=== PATIENT | male | born 1970 | race Caucasian/White ===

== ENCOUNTER 2016-11-16 00:17 | Emergency (ER) | payer OTHER ==
[2016-11-16 00:23] VITALS: RESP 18
--- NOTE | 2016-11-16 00:38 | ED ---
General Adult HPI - General Chief complaint: Anxiety Stated complaint: insomnia Time Seen by Provider: 11/16/16 00:26 Source: patient, RN notes reviewed Mode of arrival: ambulatory Limitations: no limitations - History of Present Illness Initial comments: 46 yo male presents to the ER with cc of anxiety and racing thoughts. Patient states he has developed insomnia over the past few nights due to racing thoughts. Patient states he believes it is his anxiety but there is nothing in his life that seems to bring this. Patient denies any suicidal or homicidal ideation at this time but states he has had 4 suicide attempts in the past and did have suicidal thoughts 2 weeks ago that just appeared on their own as well as disappeared as fast. Patient states he is here because he did not know where else to go. Patient states he sees [facility] for his medications. Patient denies any recent fever, chills, shortness of breath, chest pain, back pain, abdominal pain , nausea vomiting, numbness or tingling, dysuria or hematuria, constipation or diarrhea, headaches or visual changes, or any other current symptoms. - Related Data Home Medications Medication Instructions Recorded Confirmed No Known Home Medications [No 09/23/16 11/16/16 Known Home Medications] Allergies Allergy/AdvReac Type Severity Reaction Status Date / Time horseradish Allergy Anaphylaxis Verified 11/16/16 00:23 shellfish derived [Shellfish] Allergy Anaphylaxis Verified 11/16/16 00:23 Review of Systems ROS Statement: Those systems with pertinent positive or pertinent negative responses have been documented in the HPI. ROS Other: All systems not noted in ROS Statement are negative. Past Medical History Additional Past Medical History / Comment(s): cerebral aneurysm History of Any Multi-Drug Resistant Organisms: None Reported Past Surgical History: Heart Catheterization Past Psychological History: Anxiety, Bipolar, Depression Smoking Status: Current every day smoker Past Alcohol Use History: Occasional Past Drug Use History: Marijuana General Exam Limitations: no limitations General appearance: alert, in no apparent distress Head exam: Present: atraumatic, normocephalic, normal inspection Eye exam: Present: normal appearance, PERRL, EOMI. Absent: scleral icterus, conjunctival injection, periorbital swelling Neck exam: Present: normal inspection. Absent: tenderness, meningismus, lymphadenopathy Respiratory exam: Present: normal lung sounds bilaterally. Absent: respiratory distress, wheezes, rales, rhonchi, stridor Cardiovascular Exam: Present: regular rate, normal rhythm, normal heart sounds. Absent: systolic murmur, diastolic murmur, rubs, gallop, clicks Neurological exam: Present: alert, oriented X3, CN II-XII intact. Absent: motor sensory deficit Psychiatric exam: Present: normal mood. Absent: homicidal ideation, suicidal ideation Skin exam: Present: warm, dry, intact, normal color. Absent: rash Course Vital Signs 11/16/16 00:22 Temperature 98.6 F Pulse Rate 60 Respiratory 18 Rate Blood Pressure 101/56 O2 Sat by Pulse 98 Oximetry Medical Decision Making - Medical Decision Making 46 yo male presents with cc of anxiety. At this time patient does not appear to have any acute medically emergencies. patient is cleared to be evaluated by psychiatry. At this time the patient was evaluated by psychiatry and due to the patient for discharge. Patient does consent to safety Going to work in the morning. At this time we did give the patient 1 mg of Ativan helps results. We discussed return for worsening follow-up. Patient stated that he understood and all his questions have been answered. He will be discharged home. Disposition Clinical Impression: Acute anxiety Disposition: HOME SELF-CARE Condition: Stable Instructions: Generalized Anxiety Disorder (ED) Additional Instructions: Please use medication as discussed. Please follow up with family doctor if symptoms have not improved over the next two days. Please return to the emergency room if your symptoms increase or worsen or for any other concerns. Referrals: Tessa Epps MD [STAFF PHYSICIAN] - 1-2 days Time of Disposition: 02:36
[2016-11-16] MEDS ORDERED: LORazepam 1 MG TAB PO STA (02:30)
[2016-11-16 02:45] VITALS: BP 123/67; PULSE 87; TEMP 98
== END 2016-11-16 02:45 | disposition home or self-care (01) ==
LOC: EC 00:17
DX: F41.9 Anxiety disorder, unspecified (principal); F12.90 Cannabis use, unspecified, uncomplicated; Z86.79 Personal history of other diseases of the circulatory system; F17.200 Nicotine dependence, unspecified, uncomplicated
CPT/HCPCS: 80306; 82075; 99284

== ENCOUNTER 2016-12-16 02:29 | Observation (INO) | payer OTHER ==
[2016-12-16] MEDS ORDERED: ASPIRIN 81 MG CHEW PO STA (02:59)
--- NOTE | 2016-12-16 03:07 | ED ---
Chest Pain HPI - General Chief Complaint: Chest Pain Stated Complaint: Chest Pain Time Seen by Provider: 12/16/16 02:41 Source: patient Mode of arrival: ambulatory Limitations: no limitations - History of Present Illness Initial Comments: This patient's a 46-year-old man who presents with complaint that he is having some coughing and intermittent left-sided chest pain. Symptoms seem to be going on for about 3 days now. The first time came on while he was at rest, the second time the patient was walking and then the last episode he states he was playing pool. He describes the pain as an aching, it comes on and lasts for minutes. He did not notice any worsening or relieving factors. He has had a cough with some occasional sputum. MD Complaint: chest pain Onset/Timin -: days(s) Onset: during rest Pain Location: left chest Pain Radiation: none Severity: moderate Quality: aching Consistency: intermittent Improves With: nothing Worsens With: nothing - Related Data Home Medications Medication Instructions Recorded Confirmed No Known Home Medications [No 09/23/16 11/16/16 Known Home Medications] Allergies Allergy/AdvReac Type Severity Reaction Status Date / Time horseradish Allergy Anaphylaxis Verified 12/16/16 02:37 shellfish derived [Shellfish] Allergy Anaphylaxis Verified 12/16/16 02:37 Review of Systems ROS Statement: Those systems with pertinent positive or pertinent negative responses have been documented in the HPI. ROS Other: All systems not noted in ROS Statement are negative. Constitutional: Denies: fever, chills Respiratory: Reports: cough. Denies: dyspnea, hemoptysis Cardiovascular: Reports: chest pain. Denies: palpitations, dyspnea on exertion , orthopnea, edema, syncope Gastrointestinal: Denies: abdominal pain, vomiting, diarrhea Genitourinary: Denies: dysuria, hematuria Musculoskeletal: Reports: back pain Skin: Reports: rash Neurological: Denies: headache, weakness, numbness EKG Findings - EKG Results: EKG: interpreted by SHANDA DEL, sinus rhythm (Rate 73 bpm), normal axis, normal QRS, normal ST/T, no acute changes Past Medical History Past Medical History: CVA/TIA, Myocardial Infarction (LA) Additional Past Medical History / Comment(s): cerebral aneurysm History of Any Multi-Drug Resistant Organisms: None Reported Past Surgical History: Heart Catheterization Past Psychological History: Anxiety, Bipolar, Depression Smoking Status: Current every day smoker Past Alcohol Use History: Occasional Past Drug Use History: Marijuana General Exam Limitations: no limitations General appearance: alert, in no apparent distress Head exam: Present: atraumatic, normocephalic Eye exam: Present: normal appearance. Absent: scleral icterus, conjunctival injection ENT exam: Present: normal oropharynx Neck exam: Present: normal inspection Respiratory exam: Present: wheezes. Absent: respiratory distress, rales, rhonchi, stridor Cardiovascular Exam: Present: regular rate, normal rhythm, normal heart sounds. Absent: systolic murmur, diastolic murmur, rubs, gallop GI/Abdominal exam: Present: soft. Absent: distended, tenderness, guarding, rebound, mass Extremities exam: Present: normal inspection, normal capillary refill. Absent: pedal edema, calf tenderness Back exam: Present: normal inspection. Absent: CVA tenderness (R), CVA tenderness (L) Neurological exam: Present: alert Skin exam: Present: warm, dry, intact, normal color. Absent: rash, cyanosis, diaphoretic, erythema, petechiae, pallor, mottled Course Vital Signs 12/16/16 02:37 Temperature 97.3 F L Pulse Rate 73 Respiratory 16 Rate Blood Pressure 107/68 O2 Sat by Pulse 96 Oximetry Disposition Clinical Impression: Chest pain Disposition: ADMITTED IP TO THIS HOSP Condition: Fair
[2016-12-16 03:15] LABS: Basophils # (A) 0.2 k/uL (0-0.2); Basophils % (A) 1 %; CH 28.8; CHCM 32.5; Eosinophils # (A) 0.4 k/uL (0-0.7); Eosinophils % (A) 3 %; HCT 41.9 % (39.0-53.0); HDW 2.23; HGB 13.4 gm/dL (13.0-17.5); Luc # (Auto) 0.22; Luc % (Auto) 2; Lymphocytes # (A) 2.5 k/uL (1.0-4.8); Lymphocytes % (A) 21 %; MCH 28.4 pg (25.0-35.0); MCHC 31.9 g/dL (31.0-37.0); Mean Platelet Volume 6.4; Monocytes # (A) 0.6 k/uL (0-1.0); Monocytes % (A) 5 %; Neutrophils # (A) 8.4 k/uL (1.3-7.7); Neutrophils % (A) 68 %; RBC 4.71 m/uL (4.30-5.90); RDW 13.4 % (11.5-15.5); WBC 12.3 k/uL (3.8-10.6); WBC (Perox) 12.08
--- NOTE | 2016-12-16 03:36 | XR ---
EXAM: XR Chest, 2 Views. CLINICAL HISTORY: Reason: Chest Pain TECHNIQUE: Frontal and lateral views of the chest. COMPARISON: 04/19/16 two-view exam. FINDINGS: Lungs: Unremarkable. No consolidation. Pleural spaces: Unremarkable. No pneumothorax. Heart: Unremarkable. No cardiomegaly. Mediastinum: Unremarkable. Bones: Now included is incomplete union of chronic appearing and superiorly displaced distal right clavicle fracture. Tubes and lines: Several EKG leads and wires, as well as oxygen tubing, overlie the chest. IMPRESSION: No acute findings.
[2016-12-16 03:37] LABS: ALT 24 U/L (21-72); AST 23 U/L (17-59); Alkaline Phosphatase 112 U/L (38-126); Amylase 132 U/L (30-110); Anion Gap 11 mmol/L; Blood Urea Nitrogen 18 mg/dL (9-20); Calcium 9.4 mg/dL (8.4-10.2); Carbon Dioxide 25 mmol/L (22-30); Chloride 106 mmol/L (98-107); Glucose 81 mg/dL (74-99); Magnesium 2.1 mg/dL (1.6-2.3); Non-African American GFR(MDRD) >60 (>60 ml/min/1.73 sqM); Potassium 4.8 mmol/L (3.5-5.1); Sodium 142 mmol/L (137-145); Total Bilirubin 0.3 mg/dL (0.2-1.3)
[2016-12-16] MEDS ORDERED: NITROGLYCERIN SL TABS 0.4 MG TAB SUBLINGUAL PRN (04:51)
[2016-12-16 05:39] VITALS: RESP 18; BMI 17.6
[2016-12-16] MEDS: SODIUM CHLORIDE 0.9% 1,000 ML IV SCH ×2 (06:54→16:57)
[2016-12-16 09:03] LABS: Creatine Kinase 107 U/L (55-170)
[2016-12-16 09:17] LABS: Troponin I <0.012 ng/mL (0.000-0.034)
--- NOTE | 2016-12-16 09:42 | CONS ---
DATE OF CONSULTATION: Mr. Chaudhari is a 46-year-old male who does not follow with a physician, who came in because he was feeling cold. In the emergency room, he told the staff that he was having chest pain on and off, apparently he has not had chest pain in 2 days. The discomfort is nonexertional pattern, lasts some time up to 10 minutes, random in timing. He is usually active physically. He walks on a regular basis. Occasional dyspnea on exertion and occasional palpitation, but no dizziness. No syncope. No PND, orthopnea, or peripheral edema. He has no prior documented history of CAD. His coronary risk factors are remarkable for chronic tobacco use. He has no documented history of hypertension, hyperlipidemia, or diabetes. REVIEW OF SYSTEMS: RESPIRATORY SYSTEM: He has a history of chronic obstructive lung disease, chronic tobacco use. GI SYSTEM: No recent GI bleeding. No peptic ulcer disease. SYSTEM: No dysuria or hematuria. NERVOUS SYSTEM: He had a history of stroke in 2013. Full details of that are not available to me. SOCIAL HISTORY: He denies any alcohol abuse. He smokes and he did drinks caffeine. PHYSICAL EXAMINATION: This is a 46-year-old male, alert, oriented, in no apparent distress, appears older than stated age. Blood pressure 119/80 with a heart rate in the 60s. HEAD: Normocephalic. EYES: Sclerae nonicteric. NECK: Good upstroke. No bruit. No jugular venous distention. Lungs with decreased air exchange. No wheezes. HEART: Regular rate and rhythm. S1, S2, no S3, no rub. ABDOMEN: Soft, nontender, positive bowel sounds. No organomegaly. EXTREMITIES: No edema. Intact distal pulses. Lab data revealed troponin less than 0.012, BUN and creatinine 18 and 0.9. Potassium 4.8. Hemoglobin 13.4. White blood cells 12.3. EKG revealed sinus mechanism, normal axis and intervals, normal electrocardiogram. Chest x-ray shows no acute changes. IMPRESSION: 1. Chest discomfort, atypical for ischemic heart disease. 2. Chronic tobacco use. RECOMMENDATION: I have recommended proceeding with a stress echocardiogram to evaluate his symptoms. If there is no evidence of abnormality, then no further cardiac work-up will be needed. Thank you for this consult. Will follow with you.
--- NOTE | 2016-12-16 10:47 | ECHOF ---
Referral Reason:cp MEASUREMENTS -------- HEIGHT: 188.0 cm WEIGHT: 62.1 kg BP: 119/80 RVIDd: 2.7 cm (< 3.3) IVSd: 0.9 cm (0.6 - 1.1) LVIDd: 4.0 cm (3.9 - 5.3) LVPWd: 1.0 cm (0.6 - 1.1) IVSs: 1.8 cm LVIDs: 3.1 cm LVPWs: 1.5 cm LA Diam: 3.0 cm (2.7 - 3.8) LAESV Index (A-L): 26.01 ml/m Ao Diam: 3.0 cm (2.0 - 3.7) AV Cusp: 1.5 cm (1.5 - 2.6) LA Diam: 3.2 cm (2.7 - 3.8) MV EXCURSION: 17.354 mm (> 18.000) MV EF SLOPE: 195 mm/s (70 - 150) EPSS: 0.4 cm MV E Raheel: 0.80 m/s MV DecT: 205 ms MV A Raheel: 0.55 m/s MV E/A Ratio: 1.46 FINDINGS -------- Resting bradycardia (HR<60bpm). This was a technically good study. Left ventricular wall thickness is normal. Overall left ventricular systolic function is normal with, an EF between 55 - 60 %. The right ventricle is normal in size. Normal LA size by volume 22+/-6 ml/m2. The right atrium is normal in size. Aortic valve is trileaflet and is mildly thickened. The mitral valve leaflets are mildly thickened. Mild mitral annular calcification present. There is trace mitral regurgitation. Trace tricuspid regurgitation present. The pulmonic valve is normal. The aortic root size is normal. Normal inferior vena cava with normal inspiratory collapse consistent with estimated right atrial pressure of 5 mmHg. There is no pericardial effusion. CONCLUSIONS -------- 1. Resting bradycardia (HR<60bpm). 2. There is trace mitral regurgitation. 3. Trace tricuspid regurgitation present. 4. The pulmonic valve is normal. 5. The aortic root size is normal. 6. There is no pericardial effusion. 7. This was a technically good study. 8. Left ventricular wall thickness is normal. 9. Overall left ventricular systolic function is normal with, an EF between 55 - 60 %. 10. The right ventricle is normal in size. 11. Normal LA size by volume 22+/-6 ml/m2. 12. Aortic valve is trileaflet and is mildly thickened. 13. The mitral valve leaflets are mildly thickened. 14. Mild mitral annular calcification present. [employer] OPERATOR: Hima Barr RDCS
[2016-12-16] MEDS: HEPARIN SODIUM,PORCINE 5,000 UNIT/ML 1 ML VIAL SQ SCH ×2 (11:01→16:57)
[2016-12-16 11:58] VITALS: PULSE 54
[2016-12-16] MEDS ORDERED: NICOTINE 14MG/24HR PATCH TRANSDERM SCH (12:30)
[2016-12-16] MEDS ORDERED: NAPROXEN 250 MG TAB PO SCH (12:45)
--- NOTE | 2016-12-16 14:06 | ECHOS ---
DATE OF SERVICE: 12/16/2016 AGE: 46Y SEX: M HT: 74" WT: 137 lbs. Protocol Jordon: X Others: Stress Echo Stage: 4 Dur. of Exercise: 10:00 *Heart Rate Blood Pressure *Rest: 66 Rest: 144/50 * *Max. Achieved: 129 Maximum BP: 122/70 85% PMHR: 147 100% PMHR: 173 *METS: 10.3 INDICATIONS: Chest pain. MEDICATIONS: - Patient was exercised for a total period of 10 minutes. A peak heart rate of 129 was achieved. Maximum blood pressure of 122/70 mmHg was noted. Resting EKG shows normal sinus rhythm with normal DC interval and QRS duration and normal ST-T waves. No ST segment depression suggestive of ischemia is noted. The baseline echocardiographic images reveals a normal left ventricular chamber size with normal left ventricular systolic function. In the immediate postexercise period, normal increase in the wall thickness and contractility is noted. FINAL IMPRESSION: This stress echocardiographic study is negative for stress-induced ischemia. Patient achieved 75% of the predicted heart rate. Patient's exercise tolerance is excellent. EKG portion of the stress test is not suggestive of ischemia.
--- NOTE | 2016-12-16 14:42 | HP ---
DATE OF ADMISSION: 12/16/2016 PRESENTING COMPLAINT: Chest pain. HISTORY OF PRESENTING COMPLAINT: This is a 46-year-old patient with no family doctor who is a smoker. Three days ago noted some stabbing sensation on the left anterior chest wall, then yesterday had a sensation of somebody grabbing his chest. There is no shortness of breath. No perspiration. Did feel tired. No dizziness. The pain did radiate to the right arm, lasted for about 1/2 hour. Patient admitted to rule out a cardiac cause. Patient does have a cough and the pain seems to be more when he coughs. Patient did have a stroke in the past with no residual. He was told he has an CO and also has got a cerebral aneurysm at the back of the head. Patient is a smoker. REVIEW OF SYSTEMS: CONSTITUTIONAL: None. HEENT: None. RESPIRATORY: As above. CARDIOVASCULAR: As above. GASTROINTESTINAL: None. GENITOURINARY: None. MUSCULOSKELETAL: None. DERMATOLOGICAL: None. HEMATOLOGIC: None. LYMPHATIC: None. PSYCHIATRY: None. NEUROLOGICAL: None. Past history of COPD, stroke, CO, cerebral aneurysm at the back of the head, bipolar. PAST SURGICAL HISTORY: Cardiac catheterization. SOCIAL HISTORY: Smokes about 1/2 pack a day. Does marijuana sometimes. Lives here and there. Denies alcohol. Family history of stroke and emphysema. HOME MEDICATIONS: None. ALLERGIES: HORSERADISH, SHELLFISH, VENOM-WASP. On examination, vital signs on presentation: Temperature 97.3, pulse 73, respirations 16, blood pressure 107/68, pulse ox 96% on room air. GENERAL APPEARANCE: Thin build, lying in bed, not in distress. EYES: Pupils equal, conjunctivae normal. HEENT: External appearance of nose and ears normal. Oral cavity normal. NECK: JVD not raised, mass not palpable. Respiratory effort normal. LUNGS: Diminished breath sounds. CARDIOVASCULAR: First and second sounds normal. No edema. ABDOMEN: Soft, nontender. Liver and spleen not palpable. LYMPHATIC: No lymph node palpable in neck or axillae. PSYCHIATRY: Alert and oriented x3. Mood and affect normal. NEUROLOGICAL: Pupils equal. Cranial nerves grossly intact, power and sensation grossly intact. INVESTIGATIONS: White count 12.3, hemoglobin 13.4. Potassium 4.8. EKG shows normal sinus rhythm. Troponins are negative. A 2-D echocardiogram preserved LV function. ASSESSMENT: 1. Left chest wall pain. This could be left pleurisy. 2. Emphysema in a smoker. 3. Chronic nicotine dependence. 4. Chronic cerebral aneurysm. 5. Bipolar disorder, stable. PLAN: Cardiology was consulted. Stress echocardiogram has been ordered. Patient advised against smoking and given a nicotine patch. Patient should establish and follow up with a family doctor upon discharge.
[2016-12-16 15:54] VITALS: BP 107/57; TEMP 98.2
[2016-12-16 15:54] LABS: Creatine Kinase 97 U/L (55-170)
[2016-12-16 16:07] LABS: Creatine Kinase MB 0.8 ng/mL (0.0-2.4); Troponin I <0.012 ng/mL (0.000-0.034)
[2016-12-17] MEDS ORDERED: ASPIRIN 325 MG TAB PO SCH (09:00)
--- NOTE | 2016-12-17 15:53 | DS ---
DATE OF ADMISSION: 12/16/2016 DATE OF DISCHARGE: 12/16/2016 FINAL DIAGNOSIS(ES): 1. Left chest wall pain likely viral pleurisy. 2. Emphysema in a smoker. 3. Chronic nicotine dependence. 4. Chronic cerebral aneurysm, intra-atrial aneurysm. HOSPITAL COURSE: This patient presented with left-sided chest pain, sounded more like pleurisy. Troponins were negative. ( ) stress echocardiogram was negative. The patient advised against smoking. On examination lungs clear. Decreased breath sounds. CONSULTATION: Dr. Wolf. Follow up with Dr. Young in one week; follow up with cardiology per their recommendations. MEDICATIONS: 1. Naproxen 250 mg p.o. b.i.d. 10 tablets. 2. Nicotine patch.
== END 2016-12-16 18:00 | disposition home or self-care (01) ==
LOC: EC 02:29 → 3OBS 04:51
PROVIDERS: ADMIT Hospitalist; ATTEND Hospitalist
DX: R07.89 Other chest pain (principal); J43.9 Emphysema, unspecified; F17.200 Nicotine dependence, unspecified, uncomplicated; I67.1 Cerebral aneurysm, nonruptured; I25.3 Aneurysm of heart; F31.9 Bipolar disorder, unspecified; I25.2 Old myocardial infarction; Z86.73 Personal history of transient ischemic attack (TIA), and cerebral infarction without residual deficits
CPT/HCPCS: 36415; 93017; 93306; 93350; 85379; 93005; 82150; 82550; 82553; 83690; 83735; 80053; 84484; 85025; 71020; 99285; G0378; S4990

== ENCOUNTER 2016-12-29 03:33 | Emergency (ER) | payer OTHER ==
[2016-12-29 03:39] VITALS: RESP 18
--- NOTE | 2016-12-29 04:24 | XR ---
EXAM: XR Chest, 2 Views. CLINICAL HISTORY: Reason: Pain TECHNIQUE: Frontal and lateral views of the chest. COMPARISON: 12/16/16, and 04/19/16 chest radiographs. FINDINGS: Lungs: The lungs are stable in appearance, without focal infiltrate nor CHF. Pleural spaces: Unremarkable. No pneumothorax. Heart: Unremarkable. No cardiomegaly. Mediastinum: Unremarkable. 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 IMPRESSION: No significant change, including no new acute intrathoracic abnormality or source of the patient's chest pain detected, further workup for which can be obtained as clinically indicated.
--- NOTE | 2016-12-29 04:28 | ED ---
General Adult HPI - General Chief complaint: Upper Respiratory Infection Stated complaint: chest pain Time Seen by Provider: 12/29/16 03:43 Source: patient, RN notes reviewed Mode of arrival: ambulatory Limitations: no limitations - History of Present Illness Initial comments: Patient is a 46-year-old male presents to the emergency room for evaluation of chest pain. Patient states pain began around 5 PM yesterday afternoon. Patient states he noticed it while riding his bike. Patient states the pain has not subsided. Patient states he is having 4 out of 10 constant sharp pain on the left side of his chest. Patient states he's had similar pain like this before the last time he was here. Patient states he had a cardiac workup and he was sent home with Naprosyn. Patient states he's having shortness of breath as well. Patient states the pain is not worse while taking a deep breath. Patient states he smokes about a pack and a half per day. Patient denies fevers or chills. Patient denies headache or dizziness. Patient denies abdominal pain, nausea or vomiting. - Related Data Previous Rx's Medication Instructions Recorded Naproxen [Naprosyn] 250 mg PO BID #10 tab 12/16/16 Allergies Allergy/AdvReac Type Severity Reaction Status Date / Time horseradish Allergy Anaphylaxis Verified 12/16/16 08:19 shellfish derived [Shellfish] Allergy Anaphylaxis Verified 12/16/16 08:19 venom-wasp Allergy Anaphylaxis Verified 12/16/16 08:19 Review of Systems ROS Statement: Those systems with pertinent positive or pertinent negative responses have been documented in the HPI. ROS Other: All systems not noted in ROS Statement are negative. Past Medical History Past Medical History: COPD, CVA/TIA, Myocardial Infarction ([place]) Additional Past Medical History / Comment(s): cerebral aneurysm Last Myocardial Infarction Date:: History of Any Multi-Drug Resistant Organisms: None Reported Past Surgical History: Heart Catheterization Past Anesthesia/Blood Transfusion Reactions: Previous Problems w/ Anesthesia Additional Past Anesthesia/Blood Transfusion Reaction / Comment(s): Hard to wake up Past Psychological History: Anxiety, Bipolar, Depression Smoking Status: Current every day smoker Past Alcohol Use History: Occasional Past Drug Use History: Marijuana - Past Family History Mother Family Medical History: CVA/TIA Father Additional Family Medical History / Comment(s): Emphesema General Exam - General Exam Comments Initial Comments: Sitting in exam room, no acute distress. Limitations: no limitations General appearance: alert, in no apparent distress Head exam: Present: atraumatic, normocephalic, normal inspection Eye exam: Present: normal appearance ENT exam: Present: normal exam Neck exam: Present: normal inspection Respiratory exam: Present: normal lung sounds bilaterally. Absent: respiratory distress Cardiovascular Exam: Present: regular rate, normal rhythm, normal heart sounds GI/Abdominal exam: Present: soft, normal bowel sounds. Absent: distended, tenderness, guarding, rebound, rigid Extremities exam: Present: normal inspection Back exam: Present: normal inspection Neurological exam: Present: alert, oriented X3, CN II-XII intact, normal gait Psychiatric exam: Present: normal affect, normal mood Skin exam: Present: warm, dry, intact, normal color. Absent: rash Course Vital Signs 12/29/16 03:36 Temperature 97.0 F L Pulse Rate 70 Respiratory 18 Rate Blood Pressure 121/73 O2 Sat by Pulse 97 Oximetry Medical Decision Making - Medical Decision Making Patient is a 46-year-old male presents to the emergency room for evaluation of chest pain. Patient states chest pain began almost 12 hours prior to arrival. Cardiac enzymes show no significant findings. EKG shows no significant changes from previous EKG on 12/16/16. Patient recently had a cardiac workup including a stress test on 12/16/16 with no significant findings. Patient's vitals are stable. Patient can be discharged home and advised to follow-up with either his clinical psychology teacher or primary care provider. Patient states he understands everything that was discussed with him. Return parameters discussed. Case discussed with Dr. Krishna. - Lab Data Result diagrams: 12/29/16 04:38 12/29/16 04:38 Lab Results 12/29/16 12/29/16 12/29/16 Range/Units 04:38 04:38 04:38 WBC 12.3 H (3.8-10.6) k/uL RBC 4.30 (4.30-5.90) m/uL Hgb 12.7 L (13.0-17.5) gm/dL Hct 38.6 L (39.0-53.0) % MCV 89.6 (80.0-100.0) fL MCH 29.6 (25.0-35.0) pg MCHC 33.0 (31.0-37.0) g/dL RDW 13.5 (11.5-15.5) % Plt Count 313 (150-450) k/uL Neutrophils % 62 % Lymphocytes % 26 % Monocytes % 5 % Eosinophils % 3 % Basophils % 1 % Neutrophils # 7.7 (1.3-7.7) k/uL Lymphocytes # 3.2 (1.0-4.8) k/uL Monocytes # 0.6 (0-1.0) k/uL Eosinophils # 0.4 (0-0.7) k/uL Basophils # 0.2 (0-0.2) k/uL PT (9.0-12.0) sec INR (<1.1) APTT (22.0-30.0) sec D-Dimer (<0.60) mg/L FEU Sodium 138 (137-145) mmol/L Potassium 4.4 (3.5-5.1) mmol/L Chloride 105 (98-107) mmol/L Carbon Dioxide 25 (22-30) mmol/L Anion Gap 8 mmol/L BUN 19 (9-20) mg/dL Creatinine 0.90 (0.66-1.25) mg/dL Est GFR (MDRD) Af Amer >60 (>60 ml/min/1.73 sqM) Est GFR (MDRD) Non-Af >60 (>60 ml/min/1.73 sqM) Glucose 88 (74-99) mg/dL Calcium 8.8 (8.4-10.2) mg/dL Magnesium 2.1 (1.6-2.3) mg/dL Total Bilirubin 0.3 (0.2-1.3) mg/dL AST 26 (17-59) U/L ALT 34 (21-72) U/L Alkaline Phosphatase 106 (38-126) U/L Total Creatine Kinase 128 (55-170) U/L CK-MB (CK-2) 1.0 (0.0-2.4) ng/mL CK-MB (CK-2) Rel Index 0.8 Troponin I <0.012 (0.000-0.034) ng/mL Total Protein 6.4 (6.3-8.2) g/dL Albumin 3.9 (3.5-5.0) g/dL 12/29/16 Range/Units 04:38 WBC (3.8-10.6) k/uL RBC (4.30-5.90) m/uL Hgb (13.0-17.5) gm/dL Hct (39.0-53.0) % MCV (80.0-100.0) fL MCH (25.0-35.0) pg MCHC (31.0-37.0) g/dL RDW (11.5-15.5) % Plt Count (150-450) k/uL Neutrophils % % Lymphocytes % % Monocytes % % Eosinophils % % Basophils % % Neutrophils # (1.3-7.7) k/uL Lymphocytes # (1.0-4.8) k/uL Monocytes # (0-1.0) k/uL Eosinophils # (0-0.7) k/uL Basophils # (0-0.2) k/uL PT 10.0 (9.0-12.0) sec INR 1.0 (<1.1) APTT 24.7 (22.0-30.0) sec D-Dimer 0.21 (<0.60) mg/L FEU Sodium (137-145) mmol/L Potassium (3.5-5.1) mmol/L Chloride (98-107) mmol/L Carbon Dioxide (22-30) mmol/L Anion Gap mmol/L BUN (9-20) mg/dL Creatinine (0.66-1.25) mg/dL Est GFR (MDRD) Af Amer (>60 ml/min/1.73 sqM) Est GFR (MDRD) Non-Af (>60 ml/min/1.73 sqM) Glucose (74-99) mg/dL Calcium (8.4-10.2) mg/dL Magnesium (1.6-2.3) mg/dL Total Bilirubin (0.2-1.3) mg/dL AST (17-59) U/L ALT (21-72) U/L Alkaline Phosphatase (38-126) U/L Total Creatine Kinase (55-170) U/L CK-MB (CK-2) (0.0-2.4) ng/mL CK-MB (CK-2) Rel Index Troponin I (0.000-0.034) ng/mL Total Protein (6.3-8.2) g/dL Albumin (3.5-5.0) g/dL - Radiology Data Radiology results: report reviewed, image reviewed Disposition Clinical Impression: Chest pain Disposition: HOME SELF-CARE Condition: Good Instructions: Chest Pain (ED) Additional Instructions: Continue taking Naprosyn as needed for discomfort. Please follow up with primary care provider or clinical psychology teacher. If any new symptom arises or symptoms worsen, return to ER as soon as possible. Referrals: None,Stated [Primary Care Provider] - 1-2 days Time of Disposition: 05:32
[2016-12-29 04:48] LABS: Basophils # (A) 0.2 k/uL (0-0.2); Basophils % (A) 1 %; CHCM 32.6; Eosinophils # (A) 0.4 k/uL (0-0.7); Eosinophils % (A) 3 %; HCT 38.6 % (39.0-53.0); HDW 2.27; HGB 12.7 gm/dL (13.0-17.5); Luc # (Auto) 0.32; Luc % (Auto) 3; Lymphocytes # (A) 3.2 k/uL (1.0-4.8); Lymphocytes % (A) 26 %; MCH 29.6 pg (25.0-35.0); MCV 89.6 fL (80.0-100.0); Mean Platelet Volume 7.4; Monocytes # (A) 0.6 k/uL (0-1.0); Monocytes % (A) 5 %; Neutrophils # (A) 7.7 k/uL (1.3-7.7); Neutrophils % (A) 62 %; RDW 13.5 % (11.5-15.5); WBC 12.3 k/uL (3.8-10.6); WBC (Perox) 12.45
[2016-12-29 05:00] LABS: ALT 34 U/L (21-72); AST 26 U/L (17-59); Alkaline Phosphatase 106 U/L (38-126); Anion Gap 8 mmol/L; Blood Urea Nitrogen 19 mg/dL (9-20); Calcium 8.8 mg/dL (8.4-10.2); Carbon Dioxide 25 mmol/L (22-30); Chloride 105 mmol/L (98-107); Glucose 88 mg/dL (74-99); Magnesium 2.1 mg/dL (1.6-2.3); Non-African American GFR(MDRD) >60 (>60 ml/min/1.73 sqM); Potassium 4.4 mmol/L (3.5-5.1); Sodium 138 mmol/L (137-145); Total Bilirubin 0.3 mg/dL (0.2-1.3); Total Protein 6.4 g/dL (6.3-8.2)
[2016-12-29 05:07] LABS: Partial Thromboplastin Time 24.7 sec (22.0-30.0)
[2016-12-29 05:09] LABS: Creatine Kinase 128 U/L (55-170)
[2016-12-29 05:23] LABS: Troponin I <0.012 ng/mL (0.000-0.034)
[2016-12-29 05:41] VITALS: BP 110/55; PULSE 63; TEMP 97.2
== END 2016-12-29 05:41 | disposition home or self-care (01) ==
LOC: EC 03:33
DX: R07.9 Chest pain, unspecified (principal); R06.02 Shortness of breath; F17.200 Nicotine dependence, unspecified, uncomplicated; Z79.899 Other long term (current) drug therapy; Z91.013 Allergy to seafood; Z91.038 Other insect allergy status; Z91.018 Allergy to other foods; Z98.890 Other specified postprocedural states
CPT/HCPCS: 36415; 71020; 80053; 82550; 82553; 83735; 84484; 85025; 85379; 85610; 85730; 93005; 99284

== ENCOUNTER 2017-02-04 23:39 | Emergency (ER) | payer OTHER ==
[2017-02-04 23:44] VITALS: TEMP 97.5
[2017-02-05] MEDS ORDERED: IPRATROPIUM-ALBUTEROL 3 ML NEB INHALATION STA (00:07)
[2017-02-05 00:17] LABS: Basophils # (A) 0.2 k/uL (0-0.2); Basophils % (A) 2 %; CH 29.6; CHCM 32.1; Eosinophils # (A) 0.5 k/uL (0-0.7); Eosinophils % (A) 4 %; HCT 43.2 % (39.0-53.0); HDW 2.17; HGB 13.8 gm/dL (13.0-17.5); Luc # (Auto) 0.42; Luc % (Auto) 3; Lymphocytes # (A) 3.3 k/uL (1.0-4.8); Lymphocytes % (A) 24 %; MCH 29.5 pg (25.0-35.0); MCHC 31.8 g/dL (31.0-37.0); MCV 92.6 fL (80.0-100.0); Mean Platelet Volume 6.3; Monocytes # (A) 0.7 k/uL (0-1.0); Monocytes % (A) 5 %; Neutrophils # (A) 8.7 k/uL (1.3-7.7); Neutrophils % (A) 63 %; RBC 4.67 m/uL (4.30-5.90); RDW 13.6 % (11.5-15.5); WBC 13.7 k/uL (3.8-10.6); WBC (Perox) 13.65
[2017-02-05 00:30] LABS: ALT 31 U/L (21-72); AST 30 U/L (17-59); Alkaline Phosphatase 153 U/L (38-126); Anion Gap 11 mmol/L; Blood Urea Nitrogen 13 mg/dL (9-20); Calcium 9.5 mg/dL (8.4-10.2); Carbon Dioxide 24 mmol/L (22-30); Chloride 103 mmol/L (98-107); Glucose 103 mg/dL (74-99); Magnesium 2.1 mg/dL (1.6-2.3); Non-African American GFR(MDRD) >60 (>60 ml/min/1.73 sqM); Potassium 4.6 mmol/L (3.5-5.1); Sodium 138 mmol/L (137-145); Total Bilirubin 0.4 mg/dL (0.2-1.3); Total Protein 7.2 g/dL (6.3-8.2)
[2017-02-05 00:36] LABS: Creatine Kinase 362 U/L (55-170)
[2017-02-05 00:49] LABS: Creatine Kinase MB 0.9 ng/mL (0.0-2.4); Troponin I <0.012 ng/mL (0.000-0.034)
--- NOTE | 2017-02-05 00:53 | XR ---
EXAM:Chest PA and lateral views INDICATION: 46 year-old male chest pain. COMPARISON: 12/29/2016. FINDINGS: PA and lateral views of the chest are obtained. The cardiomediastinal silhouette is within normal limits. Lungs and pleural margins are clear without pneumothorax, focal consolidation, or pleural effusion. Bony elements are intact. IMPRESSION: No acute chest process or significant change since comparison.
[2017-02-05 02:27] VITALS: RESP 16
[2017-02-05] MEDS ORDERED: predniSONE 20 MG TAB PO STA (03:45)
--- NOTE | 2017-02-05 03:45 | ED ---
Chest Pain HPI - General Chief Complaint: Chest Pain Stated Complaint: Chest/Abd Pain Time Seen by Provider: 02/05/17 00:02 Source: patient Mode of arrival: wheelchair Limitations: no limitations - History of Present Illness MD Complaint: chest pain - Related Data Previous Rx's Medication Instructions Recorded Albuterol Inhaler [Ventolin Hfa 1 - 2 puff INHALATION Q6HR PRN #1 02/05/17 Inhaler] inhaler predniSONE 60 mg PO DAILY #30 tab 02/05/17 traMADol HCl [Ultram] 50 mg PO Q6H PRN #20 tab 02/05/17 Allergies Allergy/AdvReac Type Severity Reaction Status Date / Time horseradish Allergy Anaphylaxis Verified 02/04/17 23:44 shellfish derived [Shellfish] Allergy Anaphylaxis Verified 02/04/17 23:44 venom-wasp Allergy Anaphylaxis Verified 02/04/17 23:44 Review of Systems ROS Statement: Those systems with pertinent positive or pertinent negative responses have been documented in the HPI. ROS Other: All systems not noted in ROS Statement are negative. Past Medical History Past Medical History: COPD, CVA/TIA, Myocardial Infarction ([place]) Additional Past Medical History / Comment(s): cerebral aneurysm Last Myocardial Infarction Date:: History of Any Multi-Drug Resistant Organisms: None Reported Past Surgical History: Heart Catheterization Past Anesthesia/Blood Transfusion Reactions: Previous Problems w/ Anesthesia Additional Past Anesthesia/Blood Transfusion Reaction / Comment(s): Hard to wake up Past Psychological History: Anxiety, Bipolar, Depression Smoking Status: Current every day smoker Past Alcohol Use History: Occasional Past Drug Use History: Marijuana - Past Family History Mother Family Medical History: CVA/TIA Father Additional Family Medical History / Comment(s): Emphesema General Exam Limitations: no limitations Course Vital Signs 02/04/17 02/05/17 02/05/17 23:42 00:18 00:26 Temperature 97.5 F L Pulse Rate 88 86 88 Respiratory 20 Rate Blood Pressure 100/66 O2 Sat by Pulse 98 Oximetry 02/05/17 02:25 Temperature Pulse Rate 65 Respiratory 16 Rate Blood Pressure 118/63 O2 Sat by Pulse 97 Oximetry Disposition Clinical Impression: Chest pain, COPD (chronic obstructive pulmonary disease) Disposition: HOME SELF-CARE Condition: Good Instructions: Chest Pain (ED), COPD (Chronic Obstructive Pulmonary Disease) (ED ) Prescriptions: Albuterol Inhaler [Ventolin Hfa Inhaler] 1 - 2 puff INHALATION Q6HR PRN #1 inhaler PRN Reason: Wheezing predniSONE 60 mg PO DAILY #30 tab traMADol HCl [Ultram] 50 mg PO Q6H PRN #20 tab PRN Reason: Pain Referrals: None,Stated [Primary Care Provider] - 1-2 days
[2017-02-05 04:07] VITALS: BP 99/61; PULSE 75
== END 2017-02-05 04:07 | disposition home or self-care (01) ==
LOC: EC 23:39
DX: J44.9 Chronic obstructive pulmonary disease, unspecified (principal); F17.200 Nicotine dependence, unspecified, uncomplicated; Z86.73 Personal history of transient ischemic attack (TIA), and cerebral infarction without residual deficits; Z91.013 Allergy to seafood; Z91.018 Allergy to other foods; Z91.030 Bee allergy status
CPT/HCPCS: 99285; 36415 ×2; 94640; 93005; 85379; 80053; 82550; 82553; 83735; 84484 ×2; 85025; 71020; J7512

== ENCOUNTER 2017-02-07 00:34 | Emergency (ER) | payer OTHER ==
[2017-02-07] MEDS ORDERED: SODIUM CHLORIDE 0.9% 500 ML IV STA (01:30)
[2017-02-07 01:47] LABS: Basophils # (A) 0.1 k/uL (0-0.2); Basophils % (A) 1 %; CH 29.3; CHCM 32.7; Eosinophils # (A) 0.5 k/uL (0-0.7); Eosinophils % (A) 3 %; HCT 39.8 % (39.0-53.0); HDW 2.28; HGB 13.1 gm/dL (13.0-17.5); Luc # (Auto) 0.35; Luc % (Auto) 2; Lymphocytes # (A) 3.3 k/uL (1.0-4.8); Lymphocytes % (A) 23 %; MCH 29.8 pg (25.0-35.0); MCHC 33.1 g/dL (31.0-37.0); MCV 90.2 fL (80.0-100.0); Mean Platelet Volume 6.1; Monocytes # (A) 0.7 k/uL (0-1.0); Monocytes % (A) 5 %; Neutrophils # (A) 9.8 k/uL (1.3-7.7); Neutrophils % (A) 66 %; RBC 4.41 m/uL (4.30-5.90); RDW 13.2 % (11.5-15.5); WBC 14.8 k/uL (3.8-10.6); WBC (Perox) 14.65
[2017-02-07 01:55] LABS: ALT 29 U/L (21-72); AST 26 U/L (17-59); Acetaminophen <10.0 ug/mL; Alcohol <10 mg/dL; Alkaline Phosphatase 140 U/L (38-126); Anion Gap 12 mmol/L; Blood Urea Nitrogen 14 mg/dL (9-20); Calcium 9.7 mg/dL (8.4-10.2); Carbon Dioxide 27 mmol/L (22-30); Chloride 100 mmol/L (98-107); Glucose 104 mg/dL (74-99); Non-African American GFR(MDRD) >60 (>60 ml/min/1.73 sqM); Potassium 4.3 mmol/L (3.5-5.1); Salicylate <1.0 mg/dL; Sodium 139 mmol/L (137-145); Total Bilirubin 0.3 mg/dL (0.2-1.3); Total Protein 7.1 g/dL (6.3-8.2)
[2017-02-07 05:19] VITALS: PULSE 82; RESP 18
--- NOTE | 2017-02-07 05:28 | ED ---
Overdose HPI - General Chief Complaint: Overdose Stated Complaint: Accidental Overdose Tramadol Time Seen by Provider: 02/07/17 00:59 Source: patient Mode of arrival: wheelchair Limitations: no limitations - Related Data Previous Rx's Medication Instructions Recorded Albuterol Inhaler [Ventolin Hfa 1 - 2 puff INHALATION Q6HR PRN #1 02/05/17 Inhaler] inhaler predniSONE 60 mg PO DAILY #30 tab 02/05/17 traMADol HCl [Ultram] 50 mg PO Q6H PRN #20 tab 02/05/17 Allergies Allergy/AdvReac Type Severity Reaction Status Date / Time horseradish Allergy Anaphylaxis Verified 02/07/17 00:56 shellfish derived [Shellfish] Allergy Anaphylaxis Verified 02/07/17 00:56 venom-wasp Allergy Anaphylaxis Verified 02/07/17 00:56 Review of Systems ROS Statement: Those systems with pertinent positive or pertinent negative responses have been documented in the HPI. ROS Other: All systems not noted in ROS Statement are negative. Past Medical History Past Medical History: COPD, CVA/TIA, Myocardial Infarction ([place]) Additional Past Medical History / Comment(s): cerebral aneurysm Last Myocardial Infarction Date:: History of Any Multi-Drug Resistant Organisms: None Reported Past Surgical History: Heart Catheterization Past Anesthesia/Blood Transfusion Reactions: Previous Problems w/ Anesthesia Additional Past Anesthesia/Blood Transfusion Reaction / Comment(s): Hard to wake up Past Psychological History: Anxiety, Bipolar, Depression Smoking Status: Current every day smoker Past Alcohol Use History: Occasional Past Drug Use History: Marijuana - Past Family History Mother Family Medical History: CVA/TIA Father Additional Family Medical History / Comment(s): Emphesema General Exam Limitations: no limitations Course Vital Signs 02/07/17 02/07/17 02/07/17 00:49 00:56 01:56 Temperature 97.0 F L Pulse Rate 85 77 81 Respiratory 18 20 20 Rate Blood Pressure 114/55 125/68 141/84 O2 Sat by Pulse 96 98 98 Oximetry 02/07/17 02/07/17 02/07/17 03:39 04:00 05:00 Temperature 98 F Pulse Rate 76 71 82 Respiratory 18 20 18 Rate Blood Pressure 114/56 106/75 129/57 O2 Sat by Pulse 99 97 97 Oximetry Medical Decision Making - Lab Data Result diagrams: 02/07/17 01:07 02/07/17 01:07 Lab Results 02/07/17 02/07/17 02/07/17 Range/Units 01:07 01:07 01:07 WBC 14.8 H (3.8-10.6) k/uL RBC 4.41 (4.30-5.90) m/uL Hgb 13.1 (13.0-17.5) gm/dL Hct 39.8 (39.0-53.0) % MCV 90.2 (80.0-100.0) fL MCH 29.8 (25.0-35.0) pg MCHC 33.1 (31.0-37.0) g/dL RDW 13.2 (11.5-15.5) % Plt Count 417 (150-450) k/uL Neutrophils % 66 % Lymphocytes % 23 % Monocytes % 5 % Eosinophils % 3 % Basophils % 1 % Neutrophils # 9.8 H (1.3-7.7) k/uL Lymphocytes # 3.3 (1.0-4.8) k/uL Monocytes # 0.7 (0-1.0) k/uL Eosinophils # 0.5 (0-0.7) k/uL Basophils # 0.1 (0-0.2) k/uL Sodium 139 (137-145) mmol/L Potassium 4.3 (3.5-5.1) mmol/L Chloride 100 (98-107) mmol/L Carbon Dioxide 27 (22-30) mmol/L Anion Gap 12 mmol/L BUN 14 (9-20) mg/dL Creatinine 0.90 (0.66-1.25) mg/dL Est GFR (MDRD) Af Amer >60 (>60 ml/min/1.73 sqM) Est GFR (MDRD) Non-Af >60 (>60 ml/min/1.73 sqM) Glucose 104 H (74-99) mg/dL Calcium 9.7 (8.4-10.2) mg/dL Total Bilirubin 0.3 (0.2-1.3) mg/dL AST 26 (17-59) U/L ALT 29 (21-72) U/L Alkaline Phosphatase 140 H (38-126) U/L Troponin I <0.012 (0.000-0.034) ng/mL Total Protein 7.1 (6.3-8.2) g/dL Albumin 4.2 (3.5-5.0) g/dL Salicylates <1.0 mg/dL Urine Opiates Screen (NotDetected) Ur Oxycodone Screen (NotDetected) Urine Methadone Screen (NotDetected) Ur Propoxyphene Screen (NotDetected) Acetaminophen <10.0 ug/mL Ur Barbiturates Screen (NotDetected) U Tricyclic Antidepress (NotDetected) Ur Phencyclidine Scrn (NotDetected) Ur Amphetamines Screen (NotDetected) U Methamphetamines Scrn (NotDetected) U Benzodiazepines Scrn (NotDetected) Urine Cocaine Screen (NotDetected) U Marijuana (THC) Screen (NotDetected) Serum Alcohol <10 mg/dL 02/07/17 Range/Units 01:51 WBC (3.8-10.6) k/uL RBC (4.30-5.90) m/uL Hgb (13.0-17.5) gm/dL Hct (39.0-53.0) % MCV (80.0-100.0) fL MCH (25.0-35.0) pg MCHC (31.0-37.0) g/dL RDW (11.5-15.5) % Plt Count (150-450) k/uL Neutrophils % % Lymphocytes % % Monocytes % % Eosinophils % % Basophils % % Neutrophils # (1.3-7.7) k/uL Lymphocytes # (1.0-4.8) k/uL Monocytes # (0-1.0) k/uL Eosinophils # (0-0.7) k/uL Basophils # (0-0.2) k/uL Sodium (137-145) mmol/L Potassium (3.5-5.1) mmol/L Chloride (98-107) mmol/L Carbon Dioxide (22-30) mmol/L Anion Gap mmol/L BUN (9-20) mg/dL Creatinine (0.66-1.25) mg/dL Est GFR (MDRD) Af Amer (>60 ml/min/1.73 sqM) Est GFR (MDRD) Non-Af (>60 ml/min/1.73 sqM) Glucose (74-99) mg/dL Calcium (8.4-10.2) mg/dL Total Bilirubin (0.2-1.3) mg/dL AST (17-59) U/L ALT (21-72) U/L Alkaline Phosphatase (38-126) U/L Troponin I (0.000-0.034) ng/mL Total Protein (6.3-8.2) g/dL Albumin (3.5-5.0) g/dL Salicylates mg/dL Urine Opiates Screen Not Detected (NotDetected) Ur Oxycodone Screen Not Detected (NotDetected) Urine Methadone Screen Not Detected (NotDetected) Ur Propoxyphene Screen Not Detected (NotDetected) Acetaminophen ug/mL Ur Barbiturates Screen Not Detected (NotDetected) U Tricyclic Antidepress Not Detected (NotDetected) Ur Phencyclidine Scrn Not Detected (NotDetected) Ur Amphetamines Screen Not Detected (NotDetected) U Methamphetamines Scrn Not Detected (NotDetected) U Benzodiazepines Scrn Not Detected (NotDetected) Urine Cocaine Screen Not Detected (NotDetected) U Marijuana (THC) Screen Detected H (NotDetected) Serum Alcohol mg/dL Disposition Clinical Impression: Drug overdose Disposition: HOME SELF-CARE Condition: Good Instructions: Adult Overdose (ED) Referrals: None,Stated [Primary Care Provider] - 1-2 days Guy Campos MD [REFERRING] - 1-2 days
[2017-02-07 05:36] VITALS: BP 122/65; TEMP 97.7
== END 2017-02-07 05:37 | disposition home or self-care (01) ==
LOC: EC 00:34
DX: T40.4X1A Poisoning by other synthetic narcotics, accidental (unintentional), initial encounter (principal); F17.200 Nicotine dependence, unspecified, uncomplicated; Z91.013 Allergy to seafood; Z91.018 Allergy to other foods; Z91.038 Other insect allergy status
CPT/HCPCS: 36415; 80053; 80306; 80320; 82075; 83520; 84484; 85025; 93005; 96360; 96361; 99284

== ENCOUNTER 2017-02-28 21:40 | Emergency (ER) | payer OTHER ==
[2017-02-28 22:04] VITALS: RESP 18
--- NOTE | 2017-02-28 23:03 | ED ---
Psych HPI - General Chief Complaint: Psychiatric Symptoms Stated Complaint: Mental Health Time Seen by Provider: 02/28/17 22:23 Source: patient, RN notes reviewed Mode of arrival: ambulatory - History of Present Illness Initial Comments: Patient is a 47-year-old male presents emergency room for psych evaluation. Patient states she has a history of bipolar schizophrenia and depression. Patient states he began hearing voices a few weeks ago. Patient states he has a history of hearing voices telling him to hurt himself. Patient states the last time he had this, he was 15 years old. Patient states a few weeks ago, he was placed on a steroid Dosepak for COPD exacerbation and noticed voices coming back. Patient states he stopped taking the steroids but still continued to hear voices. Patient states voices are telling him to hang himself, jump over the bridge, or cut his wrists. Patient states he can't get the voices to stop. Patient denies being on any type of psych medications. Denies any current homicidal thoughts. Patient denies visual hallucinations. Patient doesn't he smokes marijuana occasionally. Patient states he smokes a pack cigarettes per day. Patient denies alcohol or other drug use. Patient denies any other significant past medical history of except for COPD. Patient denies shortness of breath, chest pain, headache, dizziness, nausea, vomiting, fevers, chills. - Related Data Home Medications Medication Instructions Recorded Confirmed No Known Home Medications [No 02/28/17 02/28/17 Known Home Medications] Allergies Allergy/AdvReac Type Severity Reaction Status Date / Time horseradish Allergy Anaphylaxis Verified 02/28/17 22:29 shellfish derived [Shellfish] Allergy Anaphylaxis Verified 02/28/17 22:29 venom-wasp Allergy Anaphylaxis Verified 02/28/17 22:29 Review of Systems ROS Statement: Those systems with pertinent positive or pertinent negative responses have been documented in the HPI. ROS Other: All systems not noted in ROS Statement are negative. Past Medical History Past Medical History: COPD, CVA/TIA, Myocardial Infarction ([place]) Additional Past Medical History / Comment(s): cerebral aneurysm Last Myocardial Infarction Date:: History of Any Multi-Drug Resistant Organisms: None Reported Past Surgical History: Heart Catheterization Past Anesthesia/Blood Transfusion Reactions: Previous Problems w/ Anesthesia Additional Past Anesthesia/Blood Transfusion Reaction / Comment(s): Hard to wake up Past Psychological History: Anxiety, Bipolar, Depression, Schizophrenia Smoking Status: Current every day smoker Past Alcohol Use History: None Reported Past Drug Use History: None Reported - Past Family History Mother Family Medical History: CVA/TIA Father Additional Family Medical History / Comment(s): Emphesema General Exam - General Exam Comments Initial Comments: Sitting in exam room, no distress. Limitations: no limitations General appearance: alert, in no apparent distress Head exam: Present: atraumatic, normocephalic, normal inspection Eye exam: Present: normal appearance ENT exam: Present: normal exam Neck exam: Present: normal inspection Respiratory exam: Present: normal lung sounds bilaterally. Absent: respiratory distress Cardiovascular Exam: Present: regular rate, normal rhythm, normal heart sounds Extremities exam: Present: normal inspection Back exam: Present: normal inspection Neurological exam: Present: alert, oriented X3, CN II-XII intact, normal gait Psychiatric exam: Present: normal affect, normal mood Skin exam: Present: warm, dry, intact, normal color. Absent: rash Course Vital Signs 02/28/17 03/01/17 22:01 01:36 Temperature 98.2 F 97.5 F L Pulse Rate 99 58 L Respiratory 18 18 Rate Blood Pressure 132/68 119/55 O2 Sat by Pulse 98 97 Oximetry Medical Decision Making - Medical Decision Making Patient is a 47-year-old male presents emergency room for psych evaluation. Patient evaluated medically cleared to be evaluated by psych. Patient evaluated by psych and does not meet admission criteria. Patient is apparently homeless and was recently kicked out of his girlfriend's house. EPS advised the patient follow up with [facility]. - Lab Data Lab Results 03/01/17 Range/Units 00:56 Urine Opiates Screen Not Detected (NotDetected) Ur Oxycodone Screen Not Detected (NotDetected) Urine Methadone Screen Not Detected (NotDetected) Ur Propoxyphene Screen Not Detected (NotDetected) Ur Barbiturates Screen Not Detected (NotDetected) U Tricyclic Antidepress Not Detected (NotDetected) Ur Phencyclidine Scrn Not Detected (NotDetected) Ur Amphetamines Screen Not Detected (NotDetected) U Methamphetamines Scrn Not Detected (NotDetected) U Benzodiazepines Scrn Not Detected (NotDetected) Urine Cocaine Screen Not Detected (NotDetected) U Marijuana (THC) Screen Detected H (NotDetected) Disposition Clinical Impression: Bipolar disorder Disposition: HOME SELF-CARE Condition: Good Instructions: Bipolar Disorder (ED) Additional Instructions: Please follow up with [facility]. If any new symptom arises or symptoms worsen, return to ER as soon as possible. Referrals: None,Stated [Primary Care Provider] - 1-2 days Time of Disposition: 01:26
[2017-03-01 01:43] VITALS: BP 119/55; PULSE 58; TEMP 97.5
== END 2017-03-01 01:43 | disposition home or self-care (01) ==
LOC: EC 21:40
DX: F31.9 Bipolar disorder, unspecified (principal); F20.9 Schizophrenia, unspecified; F41.9 Anxiety disorder, unspecified; F17.210 Nicotine dependence, cigarettes, uncomplicated; Z91.013 Allergy to seafood; Z91.038 Other insect allergy status; Z91.018 Allergy to other foods
CPT/HCPCS: 80306; 82075; 99284

== ENCOUNTER 2017-03-09 01:18 | Emergency (ER) | payer OTHER ==
[2017-03-09 02:02] LABS: Basophils # (A) 0.1 k/uL (0-0.2); Basophils % (A) 1 %; CH 28.7; CHCM 31.8; Eosinophils # (A) 0.4 k/uL (0-0.7); Eosinophils % (A) 3 %; HCT 34.2 % (39.0-53.0); HDW 2.24; HGB 10.9 gm/dL (13.0-17.5); Luc # (Auto) 0.23; Luc % (Auto) 2; Lymphocytes # (A) 2.8 k/uL (1.0-4.8); Lymphocytes % (A) 24 %; MCV 90.7 fL (80.0-100.0); Mean Platelet Volume 6.3; Monocytes # (A) 0.6 k/uL (0-1.0); Monocytes % (A) 5 %; Neutrophils # (A) 7.6 k/uL (1.3-7.7); Neutrophils % (A) 65 %; RBC 3.77 m/uL (4.30-5.90); RDW 13.3 % (11.5-15.5); WBC 11.7 k/uL (3.8-10.6); WBC (Perox) 12.33
[2017-03-09 02:14] LABS: ALT 25 U/L (21-72); AST 18 U/L (17-59); Alkaline Phosphatase 135 U/L (38-126); Anion Gap 10 mmol/L; Blood Urea Nitrogen 13 mg/dL (9-20); Carbon Dioxide 24 mmol/L (22-30); Chloride 103 mmol/L (98-107); Glucose 95 mg/dL (74-99); Non-African American GFR(MDRD) >60 (>60 ml/min/1.73 sqM); Potassium 4.2 mmol/L (3.5-5.1); Sodium 137 mmol/L (137-145); Total Bilirubin 0.3 mg/dL (0.2-1.3); Total Protein 6.4 g/dL (6.3-8.2)
[2017-03-09 02:19] LABS: Partial Thromboplastin Time 25.3 sec (22.0-30.0); Prothrombin Time 10.1 sec (9.0-12.0)
--- NOTE | 2017-03-09 02:29 | XR ---
EXAM: XR Chest, 1 View CLINICAL HISTORY: Reason: Chest Pain TECHNIQUE: Frontal view of the chest. COMPARISON: 02/05/2017 FINDINGS: Lungs: Patchy opacities in bilateral mid and lower lungs are nonspecific and may be infectious or inflammatory. Stable bilateral pulmonary hyperinflation. Pleural space: Unremarkable. No pneumothorax. Heart: Unremarkable. No cardiomegaly. Mediastinum: Unremarkable. Bones/joints: No acute osseous abnormality. Tubes, lines and devices: Telemetry leads overlie the patient. IMPRESSION: Patchy opacities in bilateral mid and lower lungs are nonspecific and may be infectious or inflammatory.
[2017-03-09] MEDS ORDERED: IBUPROFEN 600 MG TAB PO STA (02:35)
--- NOTE | 2017-03-09 02:35 | ED ---
Chest Pain HPI - General Chief Complaint: Chest Pain Stated Complaint: Chest Pressure/Pain Time Seen by Provider: 03/09/17 01:47 Source: patient Mode of arrival: ambulatory Limitations: no limitations - History of Present Illness Initial Comments: This patient is a 47-year-old man who says to be evaluated for chest pain, that he states is been going on for about 3 days now. He indicates across the entire chest, states that the pain is now moderate, described as a closest as an aching. He states that it may be a little worse after he helped a friend move a Coke machine. The patient is denying any anginal type symptoms, including no diaphoresis, dyspnea, palpitations, lightheadedness or syncope, nausea or vomiting he has not had leg pain or swelling area MD Complaint: chest pain Onset/Timin -: days(s) Pain Location: left chest, right chest Pain Radiation: none Severity: moderate Quality: aching Consistency: constant Improves With: nothing Worsens With: nothing Treatments Prior to Arrival: none - Related Data Previous Rx's Medication Instructions Recorded Albuterol Inhaler [Ventolin Hfa 1 - 2 puff INHALATION Q6HR PRN #1 03/09/17 Inhaler] inhaler Azithromycin [Zithromax Z-pack] 250 mg PO DIRECTED #6 tab 03/09/17 Allergies Allergy/AdvReac Type Severity Reaction Status Date / Time horseradish Allergy Anaphylaxis Verified 03/09/17 01:23 shellfish derived [Shellfish] Allergy Anaphylaxis Verified 03/09/17 01:23 venom-wasp Allergy Anaphylaxis Verified 03/09/17 01:23 Review of Systems ROS Statement: Those systems with pertinent positive or pertinent negative responses have been documented in the HPI. ROS Other: All systems not noted in ROS Statement are negative. Constitutional: Denies: fever, chills Respiratory: Denies: cough, dyspnea, wheezes, hemoptysis Cardiovascular: Reports: chest pain. Denies: palpitations, orthopnea, edema, syncope Gastrointestinal: Denies: abdominal pain, nausea, vomiting, melena, hematochezia Musculoskeletal: Denies: back pain Skin: Denies: rash Neurological: Denies: headache, weakness, numbness EKG Findings - EKG Results: EKG: interpreted by SANTINO WNL, sinus rhythm (Rate approximate 71 bpm), normal axis, normal QRS, normal ST/T, no acute changes Past Medical History Past Medical History: COPD, CVA/TIA, Myocardial Infarction ([place]) Additional Past Medical History / Comment(s): cerebral aneurysm Last Myocardial Infarction Date:: History of Any Multi-Drug Resistant Organisms: None Reported Past Surgical History: Heart Catheterization Past Anesthesia/Blood Transfusion Reactions: Previous Problems w/ Anesthesia Additional Past Anesthesia/Blood Transfusion Reaction / Comment(s): Hard to wake up Past Psychological History: Anxiety, Bipolar, Depression, Schizophrenia Smoking Status: Current every day smoker Past Alcohol Use History: Occasional Past Drug Use History: Marijuana - Past Family History Mother Family Medical History: CVA/TIA Father Additional Family Medical History / Comment(s): Emphesema General Exam Limitations: no limitations General appearance: alert, in no apparent distress Head exam: Present: atraumatic, normocephalic Eye exam: Present: normal appearance. Absent: scleral icterus, conjunctival injection Respiratory exam: Present: normal lung sounds bilaterally, chest wall tenderness. Absent: respiratory distress, wheezes, rales, rhonchi, stridor, accessory muscle use, decreased breath sounds, prolonged expiratory Cardiovascular Exam: Present: regular rate, normal rhythm, normal heart sounds. Absent: systolic murmur, diastolic murmur, rubs, gallop GI/Abdominal exam: Present: soft. Absent: distended, tenderness, guarding, rebound, mass Extremities exam: Present: normal inspection, normal capillary refill. Absent: pedal edema, calf tenderness Back exam: Present: normal inspection. Absent: CVA tenderness (R), CVA tenderness (L) Neurological exam: Present: alert Skin exam: Present: warm, dry, intact, normal color. Absent: rash, cyanosis, diaphoretic, erythema, petechiae, pallor, mottled Course Vital Signs 03/09/17 03/09/17 01:20 03:39 Temperature 98.3 F Pulse Rate 81 69 Respiratory 18 18 Rate Blood Pressure 117/74 110/66 O2 Sat by Pulse 98 97 Oximetry Disposition Clinical Impression: Chest wall pain, COPD exacerbation Disposition: HOME SELF-CARE Condition: Good Instructions: Chest Wall Pain (ED) Prescriptions: Albuterol Inhaler [Ventolin Hfa Inhaler] 1 - 2 puff INHALATION Q6HR PRN #1 inhaler PRN Reason: Wheezing Azithromycin [Zithromax Z-pack] 250 mg PO DIRECTED #6 tab Referrals: Flash Schofield MD [Primary Care Provider] - 1-2 days
[2017-03-09 02:36] LABS: Creatine Kinase 90 U/L (55-170)
[2017-03-09 02:49] LABS: Troponin I <0.012 ng/mL (0.000-0.034)
[2017-03-09 04:31] VITALS: BP 109/65; PULSE 62; RESP 16; TEMP 98.6
== END 2017-03-09 04:23 | disposition home or self-care (01) ==
LOC: EC 01:18
DX: J44.1 Chronic obstructive pulmonary disease with (acute) exacerbation (principal); I25.2 Old myocardial infarction; R07.89 Other chest pain; F17.200 Nicotine dependence, unspecified, uncomplicated; Z91.018 Allergy to other foods; Z91.013 Allergy to seafood; Z91.038 Other insect allergy status; Z95.818 Presence of other cardiac implants and grafts
CPT/HCPCS: 36415; 71020; 80053; 82550; 82553; 83735; 84484; 85025; 85379; 85610; 85730; 93005; 99285

== ENCOUNTER 2017-03-24 17:52 | Emergency (ER) | payer OTHER ==
--- NOTE | 2017-03-24 18:17 | ED ---
General Adult HPI - General Source: patient, RN notes reviewed Mode of arrival: wheelchair Limitations: no limitations <Zenon Goff - Last Filed: 03/24/17 18:42> <Zenon Bee - Last Filed: 03/24/17 20:30> - General Chief complaint: Chest Pain Stated complaint: CHEST PAIN/POSS RIB PAIN Time Seen by Provider: 03/24/17 18:00 - History of Present Illness Initial comments: This is a 47-year-old male who presents emergency Department stating that he has left-sided chest pain. Patient states been ongoing for a few days. Patient states it's worse with cough or taking deep breath. Patient denies any difficulty breathing [place] of breath per patient denies any pain while remaining still. Patient denies abdominal pain patient denies nausea vomiting or diarrhea. Patient denies any recent fever chills or cough. Patient states it hurts to press on the areas well. Patient denies any recent injury or trauma that he knows of. Patient denies any drinking or illegal drug use except for marijuana. (Zenon Goff) - Related Data Home Medications Medication Instructions Recorded Confirmed No Known Home Medications [No 03/24/17 03/24/17 Known Home Medications] Allergies Allergy/AdvReac Type Severity Reaction Status Date / Time horseradish Allergy Anaphylaxis Verified 03/24/17 18:37 shellfish derived [Shellfish] Allergy Anaphylaxis Verified 03/24/17 18:37 venom-wasp Allergy Anaphylaxis Verified 03/24/17 18:37 Review of Systems ROS Other: All systems not noted in ROS Statement are negative. <Zenon Goff - Last Filed: 03/24/17 18:42> ROS Other: All systems not noted in ROS Statement are negative. <Zenon Bee - Last Filed: 03/24/17 20:30> ROS Statement: Those systems with pertinent positive or pertinent negative responses have been documented in the HPI. Past Medical History Past Medical History: COPD, CVA/TIA, Myocardial Infarction ([place]) Additional Past Medical History / Comment(s): cerebral aneurysm Last Myocardial Infarction Date:: History of Any Multi-Drug Resistant Organisms: None Reported Past Surgical History: Heart Catheterization Past Anesthesia/Blood Transfusion Reactions: Previous Problems w/ Anesthesia Additional Past Anesthesia/Blood Transfusion Reaction / Comment(s): Hard to wake up Past Psychological History: Anxiety, Bipolar, Depression, Schizophrenia Smoking Status: Current every day smoker Past Alcohol Use History: Occasional Past Drug Use History: Marijuana - Past Family History Mother Family Medical History: CVA/TIA Father Additional Family Medical History / Comment(s): Emphesema <Zenon Goff - Last Filed: 03/24/17 18:42> General Exam Limitations: no limitations <Zenon Goff - Last Filed: 03/24/17 18:42> <Zenon Bee - Last Filed: 03/24/17 20:30> - General Exam Comments Initial Comments: GENERAL: Patient is well-developed and well-nourished. Patient is nontoxic and well- hydrated and is in no acute distress. ENT: Neck is soft and supple. No significant lymphadenopathy is noted. Oropharynx is clear. Moist mucous membranes. Neck has full range of motion without eliciting any pain. EYES: The sclera were anicteric and conjunctiva were pink and moist. Extraocular movements were intact and pupils were equal round and reactive to light. Eyelids were unremarkable. PULMONARY: Unlabored respirations. Good breath sounds bilaterally. No audible rales rhonchi or wheezing was noted. CARDIOVASCULAR: There is a regular rate and rhythm without any murmurs gallops or rubs. Patient has tenderness along the left lateral rib cage. ABDOMEN: Soft and nontender with normal bowel sounds. No palpable organomegaly was noted. There is no palpable pulsatile mass. SKIN: Skin is clear with no lesions or rashes and otherwise unremarkable. NEUROLOGIC Patient is alert and oriented 3 cranial nerves II through XII are grossly intact motor and sensory are also intact MUSCULOSKELETAL: Normal extremities with adequate strength and full range of motion. No lower extremity swelling or edema. No calf tenderness. LYMPHATICS: No significant lymphadenopathy is noted PSYCHIATRIC: Normal psychiatric evaluation. Normal interpersonal interactions appears functionally intact in deals appropriately with others. No signs of depression. No signs of anxiety. No delusions. No hallucinations. (Zenon Goff) Medical Decision Making - Lab Data Result diagrams: 03/24/17 18:15 <Zenon Goff - Last Filed: 03/24/17 18:42> - Lab Data Result diagrams: 03/24/17 18:15 03/24/17 18:15 <Zenon Bee - Last Filed: 03/24/17 20:30> - Medical Decision Making EKG shows normal sinus rhythm at 83 bpm OR interval 142 QRS is 82 QT interval 340 QTC is 408. Patient's EKG shows no ST segment elevation or depression or T- wave abnormality she noted. Dr. Bee will be taking over the care of this patient at 7 PM (Zenon Goff) - Lab Data Lab Results 03/24/17 03/24/17 03/24/17 Range/Units 18:15 18:15 18:15 WBC 10.9 H (3.8-10.6) k/uL RBC 4.42 (4.30-5.90) m/uL Hgb 12.8 L (13.0-17.5) gm/dL Hct 40.2 (39.0-53.0) % MCV 90.9 (80.0-100.0) fL MCH 29.0 (25.0-35.0) pg MCHC 31.9 (31.0-37.0) g/dL RDW 13.5 (11.5-15.5) % Plt Count 416 (150-450) k/uL Neutrophils % 70 % Lymphocytes % 20 % Monocytes % 4 % Eosinophils % 2 % Basophils % 1 % Neutrophils # 7.7 (1.3-7.7) k/uL Lymphocytes # 2.2 (1.0-4.8) k/uL Monocytes # 0.5 (0-1.0) k/uL Eosinophils # 0.2 (0-0.7) k/uL Basophils # 0.1 (0-0.2) k/uL PT (9.0-12.0) sec INR (<1.1) APTT (22.0-30.0) sec Sodium 141 (137-145) mmol/L Potassium 4.5 (3.5-5.1) mmol/L Chloride 103 (98-107) mmol/L Carbon Dioxide 28 (22-30) mmol/L Anion Gap 10 mmol/L BUN 15 (9-20) mg/dL Creatinine 0.99 (0.66-1.25) mg/dL Est GFR (MDRD) Af Amer >60 (>60 ml/min/1.73 sqM) Est GFR (MDRD) Non-Af >60 (>60 ml/min/1.73 sqM) Glucose 122 H (74-99) mg/dL Calcium 9.5 (8.4-10.2) mg/dL Magnesium 1.8 (1.6-2.3) mg/dL Total Bilirubin 0.5 (0.2-1.3) mg/dL AST 21 (17-59) U/L ALT 22 (21-72) U/L Alkaline Phosphatase 129 H (38-126) U/L Total Creatine Kinase 92 (55-170) U/L CK-MB (CK-2) 1.2 (0.0-2.4) ng/mL CK-MB (CK-2) Rel Index 1.3 Troponin I <0.012 (0.000-0.034) ng/mL Total Protein 7.1 (6.3-8.2) g/dL Albumin 4.3 (3.5-5.0) g/dL 03/24/17 Range/Units 18:15 WBC (3.8-10.6) k/uL RBC (4.30-5.90) m/uL Hgb (13.0-17.5) gm/dL Hct (39.0-53.0) % MCV (80.0-100.0) fL MCH (25.0-35.0) pg MCHC (31.0-37.0) g/dL RDW (11.5-15.5) % Plt Count (150-450) k/uL Neutrophils % % Lymphocytes % % Monocytes % % Eosinophils % % Basophils % % Neutrophils # (1.3-7.7) k/uL Lymphocytes # (1.0-4.8) k/uL Monocytes # (0-1.0) k/uL Eosinophils # (0-0.7) k/uL Basophils # (0-0.2) k/uL PT 10.1 (9.0-12.0) sec INR 1.0 (<1.1) APTT 24.2 (22.0-30.0) sec Sodium (137-145) mmol/L Potassium (3.5-5.1) mmol/L Chloride (98-107) mmol/L Carbon Dioxide (22-30) mmol/L Anion Gap mmol/L BUN (9-20) mg/dL Creatinine (0.66-1.25) mg/dL Est GFR (MDRD) Af Amer (>60 ml/min/1.73 sqM) Est GFR (MDRD) Non-Af (>60 ml/min/1.73 sqM) Glucose (74-99) mg/dL Calcium (8.4-10.2) mg/dL Magnesium (1.6-2.3) mg/dL Total Bilirubin (0.2-1.3) mg/dL AST (17-59) U/L ALT (21-72) U/L Alkaline Phosphatase (38-126) U/L Total Creatine Kinase (55-170) U/L CK-MB (CK-2) (0.0-2.4) ng/mL CK-MB (CK-2) Rel Index Troponin I (0.000-0.034) ng/mL Total Protein (6.3-8.2) g/dL Albumin (3.5-5.0) g/dL Disposition <Zenon Goff - Last Filed: 03/24/17 18:42> <Zenon Bee - Last Filed: 03/24/17 20:30> Clinical Impression: Chest wall pain, Chest pain Disposition: HOME SELF-CARE Condition: Good Instructions: Costochondritis (ED), Chest Pain (ED) Referrals: Flash Schofield MD [Primary Care Provider] - 1-2 days
[2017-03-24 18:34] LABS: Basophils # (A) 0.1 k/uL (0-0.2); Basophils % (A) 1 %; CH 28.7; CHCM 31.7; Eosinophils # (A) 0.2 k/uL (0-0.7); Eosinophils % (A) 2 %; HCT 40.2 % (39.0-53.0); HDW 2.34; HGB 12.8 gm/dL (13.0-17.5); Luc # (Auto) 0.23; Luc % (Auto) 2; Lymphocytes # (A) 2.2 k/uL (1.0-4.8); Lymphocytes % (A) 20 %; MCHC 31.9 g/dL (31.0-37.0); MCV 90.9 fL (80.0-100.0); Mean Platelet Volume 6.3; Monocytes # (A) 0.5 k/uL (0-1.0); Monocytes % (A) 4 %; Neutrophils # (A) 7.7 k/uL (1.3-7.7); Neutrophils % (A) 70 %; RBC 4.42 m/uL (4.30-5.90); RDW 13.5 % (11.5-15.5); WBC 10.9 k/uL (3.8-10.6); WBC (Perox) 11.33
[2017-03-24 18:44] LABS: Partial Thromboplastin Time 24.2 sec (22.0-30.0); Prothrombin Time 10.1 sec (9.0-12.0)
[2017-03-24 18:50] LABS: ALT 22 U/L (21-72); AST 21 U/L (17-59); Alkaline Phosphatase 129 U/L (38-126); Anion Gap 10 mmol/L; Blood Urea Nitrogen 15 mg/dL (9-20); Calcium 9.5 mg/dL (8.4-10.2); Carbon Dioxide 28 mmol/L (22-30); Chloride 103 mmol/L (98-107); Glucose 122 mg/dL (74-99); Magnesium 1.8 mg/dL (1.6-2.3); Non-African American GFR(MDRD) >60 (>60 ml/min/1.73 sqM); Potassium 4.5 mmol/L (3.5-5.1); Sodium 141 mmol/L (137-145); Total Bilirubin 0.5 mg/dL (0.2-1.3); Total Protein 7.1 g/dL (6.3-8.2)
[2017-03-24 18:58] LABS: Creatine Kinase 92 U/L (55-170)
--- NOTE | 2017-03-24 19:09 | XR ---
EXAMINATION TYPE: XR chest 2V DATE OF EXAM: 03/24/2017 COMPARISON: 03/09/2017 HISTORY: Chest pain and cough TECHNIQUE: Frontal and lateral views of the chest are obtained. FINDINGS: There is no focal air space opacity, pleural effusion, or pneumothorax seen. There is pulm onary hyperinflation and biapical lucency with flattening of the diaphragm suggestive of underlying C OPD. The cardiac silhouette size is within normal limits. The osseous structures are intact. IMPRESSION: No acute cardiopulmonary process. Findings suggesting underlying COPD.
[2017-03-24 19:10] LABS: Creatine Kinase MB 1.2 ng/mL (0.0-2.4); Troponin I <0.012 ng/mL (0.000-0.034)
[2017-03-24 19:25] VITALS: RESP 16
[2017-03-24 20:27] VITALS: BP 124/66; PULSE 75; TEMP 97.7
== END 2017-03-24 20:32 | disposition home or self-care (01) ==
LOC: EC 17:52
DX: R07.89 Other chest pain (principal); F17.200 Nicotine dependence, unspecified, uncomplicated; Z91.013 Allergy to seafood; Z91.018 Allergy to other foods; Z91.09 Other allergy status, other than to drugs and biological substances
CPT/HCPCS: 36415; 71020; 80053; 82550; 82553; 83735; 84484; 85025; 85610; 85730; 93005; 99285

== ENCOUNTER 2017-06-05 21:14 | Emergency (ER) | payer OTHER ==
--- NOTE | 2017-06-05 21:27 | ED ---
General Adult HPI - General Chief complaint: Chest Pain Stated complaint: Chest Pain Time Seen by Provider: 06/05/17 21:21 Source: patient, RN notes reviewed, old records reviewed Mode of arrival: wheelchair Limitations: no limitations - History of Present Illness Initial comments: This is a 39-year-old male here for evaluation of chest pain. Patient has strong history of heart disease. Patient coming with heavy anterior chest pain. Mild shortness of breath. No fever cough or congestion no travel history or sick contacts. No radiation of pain. No nausea vomiting. No diarrhea, no abdominal pain. Patient denies any shortness of breath. He is concerned of his COPD. No fevers. No cough or congestion. - Related Data Home Medications Medication Instructions Recorded Confirmed Albuterol Inhaler [Ventolin Hfa 1 - 2 puff INHALATION RT-Q4H PRN 06/05/17 Inhaler] Allergies Allergy/AdvReac Type Severity Reaction Status Date / Time horseradish Allergy Anaphylaxis Verified 03/24/17 18:37 shellfish derived [Shellfish] Allergy Anaphylaxis Verified 03/24/17 18:37 venom-wasp Allergy Anaphylaxis Verified 03/24/17 18:37 Review of Systems ROS Statement: Those systems with pertinent positive or pertinent negative responses have been documented in the HPI. ROS Other: All systems not noted in ROS Statement are negative. Past Medical History Past Medical History: COPD, CVA/TIA, Myocardial Infarction ([place]) Additional Past Medical History / Comment(s): cerebral aneurysm Last Myocardial Infarction Date:: History of Any Multi-Drug Resistant Organisms: None Reported Past Surgical History: Heart Catheterization Past Anesthesia/Blood Transfusion Reactions: Previous Problems w/ Anesthesia Additional Past Anesthesia/Blood Transfusion Reaction / Comment(s): Hard to wake up Past Psychological History: Anxiety, Bipolar, Depression, Schizophrenia Smoking Status: Current every day smoker Past Alcohol Use History: Occasional Past Drug Use History: Marijuana - Past Family History Mother Family Medical History: CVA/TIA Father Additional Family Medical History / Comment(s): Emphesema General Exam Limitations: no limitations General appearance: alert, in no apparent distress Head exam: Present: atraumatic, normocephalic, normal inspection Eye exam: Present: normal appearance, PERRL, EOMI. Absent: scleral icterus, conjunctival injection, periorbital swelling ENT exam: Present: normal exam, mucous membranes moist Neck exam: Present: normal inspection. Absent: tenderness, meningismus, lymphadenopathy Respiratory exam: Present: normal lung sounds bilaterally. Absent: respiratory distress, wheezes, rales, rhonchi, stridor Cardiovascular Exam: Present: regular rate, normal rhythm, normal heart sounds. Absent: systolic murmur, diastolic murmur, rubs, gallop, clicks GI/Abdominal exam: Present: soft, normal bowel sounds. Absent: distended, tenderness, guarding, rebound, rigid Extremities exam: Present: normal inspection, full ROM, normal capillary refill. Absent: tenderness, pedal edema, joint swelling, calf tenderness Back exam: Present: normal inspection Neurological exam: Present: alert, oriented X3, CN II-XII intact Psychiatric exam: Present: normal affect, normal mood Skin exam: Present: warm, dry, intact, normal color. Absent: rash Course Vital Signs 06/05/17 06/05/17 21:17 21:30 Temperature 97.0 F L Pulse Rate 52 L Pulse Rate [ 52 L Air Table Operator ] Respiratory 20 Rate Blood Pressure 123/74 O2 Sat by Pulse 100 Oximetry - Reevaluation(s) Reevaluation #1: 06/05/17 22:50 Patient has no complaints at this time EKG Findings - EKG Comments: EKG Findings:: EKG shows sinus tachycardia rate 51, FL 136, QRS 84, QTC 396 Medical Decision Making - Medical Decision Making 39-year-old ER for reevaluation chest pain history of chest pain history of ER visits for similar complaints. Patient consented to a COPD patient is without chest pain at this time. Patient will be discharged - Lab Data Result diagrams: 06/05/17 21:49 06/05/17 21:49 Lab Results 06/05/17 06/05/17 06/05/17 Range/Units 21:49 21:49 21:49 WBC 8.9 (3.8-10.6) k/uL RBC 4.80 (4.30-5.90) m/uL Hgb 13.7 (13.0-17.5) gm/dL Hct 42.9 (39.0-53.0) % MCV 89.3 (80.0-100.0) fL MCH 28.5 (25.0-35.0) pg MCHC 31.9 (31.0-37.0) g/dL RDW 14.2 (11.5-15.5) % Plt Count 311 (150-450) k/uL Neutrophils % 54 % Lymphocytes % 35 % Monocytes % 5 % Eosinophils % 4 % Basophils % 1 % Neutrophils # 4.8 (1.3-7.7) k/uL Lymphocytes # 3.1 (1.0-4.8) k/uL Monocytes # 0.4 (0-1.0) k/uL Eosinophils # 0.3 (0-0.7) k/uL Basophils # 0.1 (0-0.2) k/uL PT (9.0-12.0) sec INR (<1.2) APTT (22.0-30.0) sec Sodium 139 (137-145) mmol/L Potassium 4.7 (3.5-5.1) mmol/L Chloride 106 (98-107) mmol/L Carbon Dioxide 24 (22-30) mmol/L Anion Gap 9 mmol/L BUN 14 (9-20) mg/dL Creatinine 0.90 (0.66-1.25) mg/dL Est GFR (MDRD) Af Amer >60 (>60 ml/min/1.73 sqM) Est GFR (MDRD) Non-Af >60 (>60 ml/min/1.73 sqM) Glucose 92 (74-99) mg/dL Calcium 9.4 (8.4-10.2) mg/dL Magnesium 2.0 (1.6-2.3) mg/dL Total Bilirubin 0.4 (0.2-1.3) mg/dL AST 23 (17-59) U/L ALT 23 (21-72) U/L Alkaline Phosphatase 106 (38-126) U/L Total Creatine Kinase 93 (55-170) U/L CK-MB (CK-2) 1.0 (0.0-2.4) ng/mL CK-MB (CK-2) Rel Index 1.1 Troponin I <0.012 (0.000-0.034) ng/mL Total Protein 6.7 (6.3-8.2) g/dL Albumin 4.2 (3.5-5.0) g/dL Lipase 165 (23-300) U/L 06/05/17 Range/Units 21:49 WBC (3.8-10.6) k/uL RBC (4.30-5.90) m/uL Hgb (13.0-17.5) gm/dL Hct (39.0-53.0) % MCV (80.0-100.0) fL MCH (25.0-35.0) pg MCHC (31.0-37.0) g/dL RDW (11.5-15.5) % Plt Count (150-450) k/uL Neutrophils % % Lymphocytes % % Monocytes % % Eosinophils % % Basophils % % Neutrophils # (1.3-7.7) k/uL Lymphocytes # (1.0-4.8) k/uL Monocytes # (0-1.0) k/uL Eosinophils # (0-0.7) k/uL Basophils # (0-0.2) k/uL PT 10.6 (9.0-12.0) sec INR 1.0 (<1.2) APTT 24.7 (22.0-30.0) sec Sodium (137-145) mmol/L Potassium (3.5-5.1) mmol/L Chloride (98-107) mmol/L Carbon Dioxide (22-30) mmol/L Anion Gap mmol/L BUN (9-20) mg/dL Creatinine (0.66-1.25) mg/dL Est GFR (MDRD) Af Amer (>60 ml/min/1.73 sqM) Est GFR (MDRD) Non-Af (>60 ml/min/1.73 sqM) Glucose (74-99) mg/dL Calcium (8.4-10.2) mg/dL Magnesium (1.6-2.3) mg/dL Total Bilirubin (0.2-1.3) mg/dL AST (17-59) U/L ALT (21-72) U/L Alkaline Phosphatase (38-126) U/L Total Creatine Kinase (55-170) U/L CK-MB (CK-2) (0.0-2.4) ng/mL CK-MB (CK-2) Rel Index Troponin I (0.000-0.034) ng/mL Total Protein (6.3-8.2) g/dL Albumin (3.5-5.0) g/dL Lipase (23-300) U/L - Radiology Data Radiology results: report reviewed (Chest x-ray is negative for acute disease), image reviewed Disposition Clinical Impression: Chest pain Disposition: HOME SELF-CARE Condition: Good Instructions: Chest Pain (ED) Referrals: Flash Schofield MD [Primary Care Provider] - 1-2 days
[2017-06-05 22:02] LABS: Basophils # (A) 0.1 k/uL (0-0.2); Basophils % (A) 1 %; CH 28.3; CHCM 31.8; Eosinophils # (A) 0.3 k/uL (0-0.7); Eosinophils % (A) 4 %; HCT 42.9 % (39.0-53.0); HGB 13.7 gm/dL (13.0-17.5); Luc # (Auto) 0.19; Luc % (Auto) 2; Lymphocytes # (A) 3.1 k/uL (1.0-4.8); Lymphocytes % (A) 35 %; MCH 28.5 pg (25.0-35.0); MCHC 31.9 g/dL (31.0-37.0); MCV 89.3 fL (80.0-100.0); Mean Platelet Volume 6.7; Monocytes # (A) 0.4 k/uL (0-1.0); Monocytes % (A) 5 %; Neutrophils # (A) 4.8 k/uL (1.3-7.7); Neutrophils % (A) 54 %; RDW 14.2 % (11.5-15.5); WBC 8.9 k/uL (3.8-10.6); WBC (Perox) 9.09
--- NOTE | 2017-06-05 22:04 | XR ---
EXAMINATION TYPE: XR chest 2V DATE OF EXAM: 06/05/2017 COMPARISON: NONE HISTORY: Chest pain TECHNIQUE: Frontal and lateral views of the chest are obtained. FINDINGS: There is no focal air space opacity, pleural effusion, or pneumothorax seen. The cardiac silhouette size is within normal limits. Chronic injury of the distal right clavicle is again noted. IMPRESSION: No change in appearance of the chest.
[2017-06-05 22:07] LABS: ALT 23 U/L (21-72); AST 23 U/L (17-59); Alkaline Phosphatase 106 U/L (38-126); Anion Gap 9 mmol/L; Blood Urea Nitrogen 14 mg/dL (9-20); Calcium 9.4 mg/dL (8.4-10.2); Carbon Dioxide 24 mmol/L (22-30); Chloride 106 mmol/L (98-107); Glucose 92 mg/dL (74-99); Non-African American GFR(MDRD) >60 (>60 ml/min/1.73 sqM); Potassium 4.7 mmol/L (3.5-5.1); Sodium 139 mmol/L (137-145); Total Bilirubin 0.4 mg/dL (0.2-1.3); Total Protein 6.7 g/dL (6.3-8.2)
[2017-06-05 22:08] LABS: Partial Thromboplastin Time 24.7 sec (22.0-30.0); Prothrombin Time 10.6 sec (9.0-12.0)
[2017-06-05 22:15] LABS: Creatine Kinase 93 U/L (55-170)
[2017-06-05 22:28] LABS: Troponin I <0.012 ng/mL (0.000-0.034)
[2017-06-05 23:13] VITALS: BP 133/79; PULSE 51; RESP 16; TEMP 96.9
== END 2017-06-05 23:11 | disposition home or self-care (01) ==
LOC: EC 21:14
DX: R07.89 Other chest pain (principal); I25.2 Old myocardial infarction; F17.200 Nicotine dependence, unspecified, uncomplicated; Z91.030 Bee allergy status; Z91.013 Allergy to seafood; Z91.048 Other nonmedicinal substance allergy status
CPT/HCPCS: 36415; 71020; 80053; 82550; 82553; 83690; 83735; 84484; 85025; 85610; 85730; 93005; 99285

== ENCOUNTER 2017-07-03 21:33 | Emergency (ER) | payer OTHER ==
[2017-07-03 21:37] VITALS: BP 128/68; PULSE 72; RESP 16; TEMP 98.4
--- NOTE | 2017-07-03 21:56 | ED ---
ENT HPI - General Chief complaint: Dental/Oral Stated complaint: Abscess Tooth Time Seen by Provider: 07/03/17 21:46 Source: patient, RN notes reviewed Mode of arrival: ambulatory Limitations: no limitations - History of Present Illness Initial comments: This a 47-year-old male presents emergency Department chief complaint of dental pain. Patient states that started over the last few days states he thought is getting better, swelling went down but states it return today. Patient denies fever, chills or night sweats. Patient states he has most of his teeth eroded away. Patient does not currently see a dentist. Patient denies any difficulty swallowing no sore throat. - Related Data Previous Rx's Medication Instructions Recorded Acetaminophen-Codeine 300-30mg 1 tab PO Q4H PRN #20 tablet 07/03/17 [Tylenol #3] Penicillin V Potassium [Pen Vee K] 500 mg PO QID #40 tab 07/03/17 Allergies Allergy/AdvReac Type Severity Reaction Status Date / Time horseradish Allergy Anaphylaxis Verified 07/03/17 21:37 shellfish derived [Shellfish] Allergy Anaphylaxis Verified 07/03/17 21:37 venom-wasp Allergy Anaphylaxis Verified 07/03/17 21:37 Review of Systems ROS Statement: Those systems with pertinent positive or pertinent negative responses have been documented in the HPI. ROS Other: All systems not noted in ROS Statement are negative. Past Medical History Past Medical History: COPD, CVA/TIA, Myocardial Infarction ([place]) Additional Past Medical History / Comment(s): cerebral aneurysm Last Myocardial Infarction Date:: History of Any Multi-Drug Resistant Organisms: None Reported Past Surgical History: Heart Catheterization Past Anesthesia/Blood Transfusion Reactions: Previous Problems w/ Anesthesia Additional Past Anesthesia/Blood Transfusion Reaction / Comment(s): Hard to wake up Past Psychological History: Anxiety, Bipolar, Depression, Schizophrenia Smoking Status: Current every day smoker Past Alcohol Use History: Occasional Past Drug Use History: Marijuana - Past Family History Mother Family Medical History: CVA/TIA Father Additional Family Medical History / Comment(s): Emphesema General Exam Limitations: no limitations General appearance: alert, in no apparent distress Head exam: Present: atraumatic, normocephalic, normal inspection Eye exam: Present: normal appearance, PERRL, EOMI. Absent: scleral icterus, conjunctival injection, periorbital swelling ENT exam: Present: mucous membranes moist, TM's normal bilaterally, normal external ear exam. Absent: normal exam, normal oropharynx (Edentulous, there is moderate swelling of her gumline the frontal aspect no drainable abscess) Neck exam: Present: normal inspection, full ROM. Absent: tenderness, meningismus, lymphadenopathy Respiratory exam: Present: normal lung sounds bilaterally. Absent: respiratory distress, wheezes, rales, rhonchi, stridor Cardiovascular Exam: Present: regular rate, normal rhythm, normal heart sounds. Absent: systolic murmur, diastolic murmur, rubs, gallop, clicks Course Vital Signs 07/03/17 21:35 Temperature 98.4 F Pulse Rate 72 Respiratory 16 Rate Blood Pressure 128/68 O2 Sat by Pulse 99 Oximetry Medical Decision Making - Medical Decision Making 47-year-old male present emergency from for dental pain. Patient has a dental infection. Patient was started on prednisone and child coating. He is advised follow-up with dental clinic return parameters were discussed. Disposition Clinical Impression: Toothache, Dental infection Disposition: HOME SELF-CARE Condition: Stable Instructions: Toothache (ED) Additional Instructions: Please return to the Emergency Department if symptoms worsen or any other concerns. Prescriptions: Acetaminophen-Codeine 300-30mg [Tylenol #3] 1 tab PO Q4H PRN #20 tablet PRN Reason: pain Penicillin V Potassium [Pen Vee K] 500 mg PO QID #40 tab Referrals: Nonstaff,Physician [Primary Care Provider] - 1-2 days Time of Disposition: 21:56
[2017-07-03] MEDS ORDERED: Acetaminophen-Codeine 300-30mg TAB PO STA (22:13)
[2017-07-03] MEDS ORDERED: PENICILLIN V POTASSIUM 250 MG TAB PO STA (22:13)
== END 2017-07-03 22:25 | disposition home or self-care (01) ==
LOC: EC 21:33
DX: K04.7 Periapical abscess without sinus (principal); F17.200 Nicotine dependence, unspecified, uncomplicated; Z91.013 Allergy to seafood; Z91.018 Allergy to other foods; Z91.038 Other insect allergy status
CPT/HCPCS: 99282

== ENCOUNTER 2017-07-19 01:02 | Observation (INO) | payer OTHER ==
[2017-07-19] MEDS ORDERED: SODIUM CHLORIDE 0.9% 500 ML IV STA (01:53)
[2017-07-19] MEDS ORDERED: ASPIRIN 81 MG PO STA (01:53)
[2017-07-19 02:19] LABS: Basophils # (A) 0.2 k/uL (0-0.2); Basophils % (A) 1 %; CH 29.1; CHCM 32.9; Eosinophils # (A) 0.5 k/uL (0-0.7); Eosinophils % (A) 4 %; HDW 2.26; HGB 13.8 gm/dL (13.0-17.5); Luc # (Auto) 0.17; Luc % (Auto) 1; Lymphocytes % (A) 21 %; MCH 27.9 pg (25.0-35.0); MCHC 31.3 g/dL (31.0-37.0); MCV 89.1 fL (80.0-100.0); Mean Platelet Volume 6.9; Monocytes # (A) 0.7 k/uL (0-1.0); Monocytes % (A) 5 %; Neutrophils # (A) 9.4 k/uL (1.3-7.7); Neutrophils % (A) 68 %; RBC 4.94 m/uL (4.30-5.90); RDW 15.6 % (11.5-15.5); WBC (Perox) 13.76
[2017-07-19 02:27] LABS: Partial Thromboplastin Time 23.8 sec (22.0-30.0)
[2017-07-19 02:30] LABS: ALT 32 U/L (21-72); AST 24 U/L (17-59); Alkaline Phosphatase 131 U/L (38-126); Anion Gap 8 mmol/L; Blood Urea Nitrogen 10 mg/dL (9-20); Calcium 9.4 mg/dL (8.4-10.2); Carbon Dioxide 24 mmol/L (22-30); Chloride 104 mmol/L (98-107); Glucose 92 mg/dL (74-99); Non-African American GFR(MDRD) >60 (>60 ml/min/1.73 sqM); Potassium 4.3 mmol/L (3.5-5.1); Sodium 136 mmol/L (137-145); Total Bilirubin 0.5 mg/dL (0.2-1.3); Total Protein 6.7 g/dL (6.3-8.2)
[2017-07-19 02:42] LABS: Creatine Kinase 131 U/L (55-170)
--- NOTE | 2017-07-19 02:54 | XR ---
EXAM: XR Chest, 2 Views CLINICAL HISTORY: Reason: Chest Pain TECHNIQUE: Frontal and lateral views of the chest. COMPARISON: 06/05/17 radiographs. FINDINGS: Lungs: Subtle increased density over the left base on the frontal view conforms to the anterior left sixth rib course, and may be due to differences in projection or callus formation from healed fracture deformity, without underlying nodule or infiltrate seen on the lateral view. Pleural space: No pleural effusion or pneumothorax. Heart: Unremarkable. No cardiomegaly. Mediastinum: Unremarkable. Bones/joints: Stable chronic posttraumatic deformity of the distal right clavicle, and minimal rightward curvature of the mid thoracic spine. IMPRESSION: 1. No new acute intrathoracic abnormality is seen. 2. Subtle density conforming to the anterior left sixth rib, and which may represent callus formation from a fracture, rather than a small lung nodule. This could be correlated clinically, and reassessed electively.
[2017-07-19 02:55] LABS: Creatine Kinase MB 1.2 ng/mL (0.0-2.4); Troponin I <0.012 ng/mL (0.000-0.034)
--- NOTE | 2017-07-19 04:33 | ED ---
General Adult HPI - General Chief complaint: Shortness of Breath Stated complaint: THADDEUS Time Seen by Provider: 07/19/17 01:49 Source: patient Mode of arrival: ambulatory Limitations: no limitations - History of Present Illness Initial comments: 47-year-old male patient with past medical history significant for myocardial infarction and CVA presents for evaluation of intermittent substernal chest pain for the last 4-5 days. Patient states the pain is dull and aching. He states that he feels the pain gets worse when the humidity is higher. He states he does get sweats with the pain. He states that occasionally he does become short of breath. He does report a cough. Patient denies any recent rash , fever, chills, shortness breath, abdominal pain, nausea, vomiting, diarrhea, constipation, back pain, numbness, tingling, dizziness, weakness, hematuria, dysuria, urinary urgency, urinary frequency, headache, visual changes, or any other complaints. He states he is currently symptom-free. - Related Data Previous Rx's Medication Instructions Recorded Acetaminophen-Codeine 300-30mg 1 tab PO Q4H PRN #20 tablet 07/03/17 [Tylenol #3] Penicillin V Potassium [Pen Vee K] 500 mg PO QID #40 tab 07/03/17 Allergies Allergy/AdvReac Type Severity Reaction Status Date / Time horseradish Allergy Anaphylaxis Verified 07/19/17 01:15 shellfish derived [Shellfish] Allergy Anaphylaxis Verified 07/19/17 01:15 venom-wasp Allergy Anaphylaxis Verified 07/19/17 01:15 Review of Systems ROS Statement: Those systems with pertinent positive or pertinent negative responses have been documented in the HPI. ROS Other: All systems not noted in ROS Statement are negative. Past Medical History Past Medical History: COPD, CVA/TIA, Myocardial Infarction ([place]) Additional Past Medical History / Comment(s): cerebral aneurysm Last Myocardial Infarction Date:: History of Any Multi-Drug Resistant Organisms: None Reported Past Surgical History: Heart Catheterization Past Anesthesia/Blood Transfusion Reactions: Previous Problems w/ Anesthesia Additional Past Anesthesia/Blood Transfusion Reaction / Comment(s): Hard to wake up Past Psychological History: Anxiety, Bipolar, Depression, Schizophrenia Smoking Status: Current every day smoker Past Alcohol Use History: Occasional Past Drug Use History: Marijuana - Past Family History Mother Family Medical History: CVA/TIA Father Additional Family Medical History / Comment(s): Emphesema General Exam Limitations: no limitations General appearance: alert, in no apparent distress, other (This is a thin- appearing, well-developed adult male patient in no acute distress. Vital signs upon presentation her temperature 97.3F, pulse 70, respirations 18, blood pressure 105/64, pulse ox 99% on room air.) Eye exam: Present: normal appearance, PERRL, EOMI. Absent: scleral icterus, conjunctival injection, periorbital swelling ENT exam: Present: normal exam, normal oropharynx, mucous membranes moist Respiratory exam: Present: normal lung sounds bilaterally, wheezes (Diffuse expiratory wheezing throughout the posterior lung driver). Absent: respiratory distress, rales, rhonchi, stridor Cardiovascular Exam: Present: regular rate, normal rhythm, normal heart sounds. Absent: systolic murmur, diastolic murmur, rubs, gallop, clicks GI/Abdominal exam: Present: soft, normal bowel sounds. Absent: distended, tenderness, guarding, rebound, rigid Neurological exam: Present: alert, oriented X3, CN II-XII intact Psychiatric exam: Present: normal affect, normal mood Skin exam: Present: warm, dry, intact, normal color. Absent: rash Course Vital Signs 07/19/17 07/19/17 07/19/17 01:15 02:45 04:31 Temperature 97.3 F L 97.6 F 97.9 F Pulse Rate 70 69 70 Respiratory 18 18 18 Rate Blood Pressure 105/64 118/80 142/59 O2 Sat by Pulse 99 97 98 Oximetry EKG Findings - EKG Comments: EKG Findings:: EKG obtained at 12 03 reveals normal sinus rhythm with a ventricular rate of 68, MT interval 136, QRS duration 86, QTC 414, QTC 440. No evidence of ST elevation or depression. Medical Decision Making - Medical Decision Making 39-year-old male patient presented for evaluation of chest pain. Lab were reviewed and showed a white blood cell count of 14.0. Initial cardiac enzymes were negative. Chest x-ray showed subtle increased density over the left base on the frontal view conforms to the anterior left sixth rib course. There is no pleural effusion or pneumothorax. No evidence of a pulmonary infiltrate. EKG showed normal sinus rhythm with no evidence of ST elevation or depression. Patient will be admitted to the hospital for further evaluation by cardiology as he does have a history of myocardial infarction. Did speak about the case with my attending Dr. Schmitzed. Patient will be admitted to the care of Dr. Jeter. - Lab Data Result diagrams: 07/19/17 02:10 07/19/17 02:10 Lab Results 07/19/17 07/19/17 07/19/17 Range/Units 02:10 02:10 02:10 WBC 14.0 H (3.8-10.6) k/uL RBC 4.94 (4.30-5.90) m/uL Hgb 13.8 (13.0-17.5) gm/dL Hct 44.0 (39.0-53.0) % MCV 89.1 (80.0-100.0) fL MCH 27.9 (25.0-35.0) pg MCHC 31.3 (31.0-37.0) g/dL RDW 15.6 H (11.5-15.5) % Plt Count 315 (150-450) k/uL Neutrophils % 68 % Lymphocytes % 21 % Monocytes % 5 % Eosinophils % 4 % Basophils % 1 % Neutrophils # 9.4 H (1.3-7.7) k/uL Lymphocytes # 3.0 (1.0-4.8) k/uL Monocytes # 0.7 (0-1.0) k/uL Eosinophils # 0.5 (0-0.7) k/uL Basophils # 0.2 (0-0.2) k/uL PT (9.0-12.0) sec INR (<1.2) APTT (22.0-30.0) sec Sodium 136 L (137-145) mmol/L Potassium 4.3 (3.5-5.1) mmol/L Chloride 104 (98-107) mmol/L Carbon Dioxide 24 (22-30) mmol/L Anion Gap 8 mmol/L BUN 10 (9-20) mg/dL Creatinine 0.80 (0.66-1.25) mg/dL Est GFR (MDRD) Af Amer >60 (>60 ml/min/1.73 sqM) Est GFR (MDRD) Non-Af >60 (>60 ml/min/1.73 sqM) Glucose 92 (74-99) mg/dL Calcium 9.4 (8.4-10.2) mg/dL Magnesium 2.0 (1.6-2.3) mg/dL Total Bilirubin 0.5 (0.2-1.3) mg/dL AST 24 (17-59) U/L ALT 32 (21-72) U/L Alkaline Phosphatase 131 H (38-126) U/L Total Creatine Kinase 131 (55-170) U/L CK-MB (CK-2) 1.2 (0.0-2.4) ng/mL CK-MB (CK-2) Rel Index 0.9 Troponin I <0.012 (0.000-0.034) ng/mL Total Protein 6.7 (6.3-8.2) g/dL Albumin 4.2 (3.5-5.0) g/dL 07/19/17 Range/Units 02:10 WBC (3.8-10.6) k/uL RBC (4.30-5.90) m/uL Hgb (13.0-17.5) gm/dL Hct (39.0-53.0) % MCV (80.0-100.0) fL MCH (25.0-35.0) pg MCHC (31.0-37.0) g/dL RDW (11.5-15.5) % Plt Count (150-450) k/uL Neutrophils % % Lymphocytes % % Monocytes % % Eosinophils % % Basophils % % Neutrophils # (1.3-7.7) k/uL Lymphocytes # (1.0-4.8) k/uL Monocytes # (0-1.0) k/uL Eosinophils # (0-0.7) k/uL Basophils # (0-0.2) k/uL PT 10.0 (9.0-12.0) sec INR 1.0 (<1.2) APTT 23.8 (22.0-30.0) sec Sodium (137-145) mmol/L Potassium (3.5-5.1) mmol/L Chloride (98-107) mmol/L Carbon Dioxide (22-30) mmol/L Anion Gap mmol/L BUN (9-20) mg/dL Creatinine (0.66-1.25) mg/dL Est GFR (MDRD) Af Amer (>60 ml/min/1.73 sqM) Est GFR (MDRD) Non-Af (>60 ml/min/1.73 sqM) Glucose (74-99) mg/dL Calcium (8.4-10.2) mg/dL Magnesium (1.6-2.3) mg/dL Total Bilirubin (0.2-1.3) mg/dL AST (17-59) U/L ALT (21-72) U/L Alkaline Phosphatase (38-126) U/L Total Creatine Kinase (55-170) U/L CK-MB (CK-2) (0.0-2.4) ng/mL CK-MB (CK-2) Rel Index Troponin I (0.000-0.034) ng/mL Total Protein (6.3-8.2) g/dL Albumin (3.5-5.0) g/dL - Radiology Data Radiology results: report reviewed, image reviewed Two-view x-ray of the chest report reviewed in detail, impression by Dr. Rod shows no new acute intrathoracic abnormality. Subtle density conforming to the anterior left sixth rib, and which fever present callus formation from a fracture, rather than a small lung nodule. This could be correlated clinically , and reassessed electively. Disposition Clinical Impression: Chest pain Disposition: ADMITTED IP TO THIS [facility] Condition: Fair Referrals: Kelsey Guo MD [Primary Care Provider] - 1-2 days Decision to Admit Reason: Admit from EC Decision Date: 07/19/17 Decision Time: 04:38
[2017-07-19] MEDS ORDERED: HEPARIN SODIUM,PORCINE 5,000 UNIT/ML 1 ML VIAL IV ONE (04:38)
[2017-07-19] MEDS ORDERED: NITROGLYCERIN SL TABS 0.4 MG TAB SUBLINGUAL PRN (04:38)
[2017-07-19] MEDS ORDERED: SODIUM CHLORIDE 0.9% 1,000 ML IV SCH (04:45)
[2017-07-19] MEDS ORDERED: HEPARIN SODIUM,PORCINE/D5W PMX 25,000 UNIT in DEXTROSE/WATER 1 500ML.BAG IV SCH (04:45)
[2017-07-19 05:57] VITALS: BMI 16.5
[2017-07-19 08:17] VITALS: TEMP 98
--- NOTE | 2017-07-19 09:01 | P.CRDCN ---
History of Present Illness History of present illness: Patient interviewed and examined. Came in complaining of shortness of breath. May have had some vague discomfort in the chest but that's not his primary symptom. White count was mildly elevated. ECG is normal. Heart sounds are normal. Breath sounds are reduced bilaterally. He is a current smoker. Stress test was normal earlier this year. 2-D echo and Doppler study was also normal earlier this year. He was seen by Dr. Dr. Wolf at that time in November 2016 Impression Patient presented with shortness of breath, mildly elevated white count states that his COPD is acting up Atypical discomfort in the chest with normal ECGs and first cardiac enzyme is normal Current smoker plan Discontinue IV heparin if cardiac enzymes are normal and that he can go to the medical floor for COPD management Smoking cessation No further cardiac workup at this point if his cardiac enzymes are completely normal Past Medical History Past Medical History: COPD, CVA/TIA, Myocardial Infarction ([place]) Additional Past Medical History / Comment(s): cerebral aneurysm Last Myocardial Infarction Date:: History of Any Multi-Drug Resistant Organisms: None Reported Past Surgical History: Heart Catheterization Past Anesthesia/Blood Transfusion Reactions: Previous Problems w/ Anesthesia Additional Past Anesthesia/Blood Transfusion Reaction / Comment(s): Hard to wake up Past Psychological History: Anxiety, Bipolar, Depression, Schizophrenia Smoking Status: Current every day smoker Past Alcohol Use History: Occasional Past Drug Use History: Marijuana - Past Family History Mother Family Medical History: CVA/TIA Father Additional Family Medical History / Comment(s): Emphesema Medications and Allergies Home Medications Medication Instructions Recorded Confirmed Type No Known Home Medications [No 07/19/17 07/19/17 History Known Home Medications] Allergies Allergy/AdvReac Type Severity Reaction Status Date / Time horseradish Allergy Anaphylaxis Verified 07/19/17 08:13 shellfish derived [Shellfish] Allergy Anaphylaxis Verified 07/19/17 08:13 venom-wasp Allergy Anaphylaxis Verified 07/19/17 08:13 Physical Exam Vitals: Vital Signs Temp Pulse Pulse Resp BP BP Pulse Ox 07/19/17 08:00 98 F 64 16 99/57 98 07/19/17 06:15 16 07/19/17 05:32 98.1 F 79 16 103/61 96 07/19/17 04:31 97.9 F 70 18 142/59 98 07/19/17 02:45 97.6 F 69 18 118/80 97 07/19/17 01:15 97.3 F L 70 18 105/64 99 Intake and Output 07/18/17 07/19/17 07/19/17 22:59 06:59 14:59 Other: # Voids 1 Weight 58.513 kg Results 07/19/17 02:10 07/19/17 02:10 Cardiac Enzymes 07/19/17 07/19/17 Range/Units 02:10 02:10 AST 24 (17-59) U/L CK-MB (CK-2) 1.2 (0.0-2.4) ng/mL Troponin I <0.012 (0.000-0.034) ng/mL Coagulation 07/19/17 Range/Units 02:10 PT 10.0 (9.0-12.0) sec APTT 23.8 (22.0-30.0) sec CBC 07/19/17 Range/Units 02:10 WBC 14.0 H (3.8-10.6) k/uL RBC 4.94 (4.30-5.90) m/uL Hgb 13.8 (13.0-17.5) gm/dL Hct 44.0 (39.0-53.0) % Plt Count 315 (150-450) k/uL Comprehensive Metabolic Panel 07/19/17 Range/Units 02:10 Sodium 136 L (137-145) mmol/L Potassium 4.3 (3.5-5.1) mmol/L Chloride 104 (98-107) mmol/L Carbon Dioxide 24 (22-30) mmol/L BUN 10 (9-20) mg/dL Creatinine 0.80 (0.66-1.25) mg/dL Glucose 92 (74-99) mg/dL Calcium 9.4 (8.4-10.2) mg/dL AST 24 (17-59) U/L ALT 32 (21-72) U/L Alkaline Phosphatase 131 H (38-126) U/L Total Protein 6.7 (6.3-8.2) g/dL Albumin 4.2 (3.5-5.0) g/dL Current Medications Generic Name Dose Route Start Last Admin Trade Name Freq PRN Reason Stop Dose Admin Aspirin 325 mg 07/20/17 09:00 Aspirin PO DAILY HANNAH Heparin Sodium/Dextrose 25,000 500 mls @ 14.04 mls/hr 07/19/17 04:45 05:07 unit/ IV Solution IV 12 units/kg/hr .Q24H HANNAH 14.04 mls/hr Protocol Administration 12 UNITS/KG/HR Sodium Chloride 1,000 mls @ 20 mls/hr 07/19/17 04:45 07/19/17 05:10 Saline 0.9% IV 20 mls/hr .Q24H HANNAH Administration Nitroglycerin 0.4 mg 07/19/17 04:38 Nitrostat SUBLINGUAL Q5M PRN Chest Pain Intake and Output 07/18/17 07/19/17 07/19/17 22:59 06:59 14:59 Other: # Voids 1 Weight 58.513 kg 07/19/17 02:10 07/19/17 02:10
[2017-07-19 09:13] LABS: Creatine Kinase 98 U/L (55-170)
[2017-07-19 09:27] LABS: Creatine Kinase MB 1.2 ng/mL (0.0-2.4); Troponin I <0.012 ng/mL (0.000-0.034)
--- NOTE | 2017-07-19 09:56 | P.CRDCN ---
History of Present Illness Consult date: 07/19/17 History of present illness: This is a 47-year-old male with past medical history significant for COPD and CVA. He presented to the hospital with complaints of sharp chest pain that lasted less than 30 seconds. He states he was walking when he felt the pain and when he stopped walking at that on the bench it went away. He also had shortness of breath associated with this pain. He states it felt like his COPD and his lungs were tightening up. He denies associated dizziness, palpitations , diaphoresis, nausea or vomiting. He was most recently in the hospital in November with similar complaints. At that time he had a cardiac workup. Echocardiogram revealed preserved left ventricular systolic function with an ejection fraction of 55-60%, stress echo at that time was negative for stress induced ischemia. He achieved 75% of predicted heart rate. Review of Systems Extensive review of systems performed, negative except mentioned in HPI. Past Medical History Past Medical History: COPD, CVA/TIA, Myocardial Infarction ([place]) Additional Past Medical History / Comment(s): cerebral aneurysm Last Myocardial Infarction Date:: History of Any Multi-Drug Resistant Organisms: None Reported Past Surgical History: Heart Catheterization Past Anesthesia/Blood Transfusion Reactions: Previous Problems w/ Anesthesia Additional Past Anesthesia/Blood Transfusion Reaction / Comment(s): Hard to wake up Past Psychological History: Anxiety, Bipolar, Depression, Schizophrenia Smoking Status: Current every day smoker Past Alcohol Use History: Occasional Past Drug Use History: Marijuana - Past Family History Mother Family Medical History: CVA/TIA Father Additional Family Medical History / Comment(s): Emphesema Medications and Allergies Home Medications Medication Instructions Recorded Confirmed Type No Known Home Medications [No 07/19/17 07/19/17 History Known Home Medications] Allergies Allergy/AdvReac Type Severity Reaction Status Date / Time horseradish Allergy Anaphylaxis Verified 07/19/17 08:13 shellfish derived [Shellfish] Allergy Anaphylaxis Verified 07/19/17 08:13 venom-wasp Allergy Anaphylaxis Verified 07/19/17 08:13 Physical Exam Vitals: Vital Signs Temp Pulse Pulse Resp BP BP Pulse Ox 07/19/17 06:15 16 07/19/17 05:32 98.1 F 79 16 103/61 96 07/19/17 04:31 97.9 F 70 18 142/59 98 07/19/17 02:45 97.6 F 69 18 118/80 97 07/19/17 01:15 97.3 F L 70 18 105/64 99 Intake and Output 07/18/17 07/19/17 07/19/17 22:59 06:59 14:59 Other: # Voids 1 Weight 58.513 kg GENERAL: This is a 47-year-old male in no apparent distress at the time of my examination. HEENT: Head is atraumatic, normocephalic. Pupils are equal, round. Sclerae anicteric. Conjunctivae are clear. Mucous membranes of the mouth are moist. Neck is supple. There is no jugular venous distention. No carotid bruit is heard. LUNGS: Clear to auscultation no wheezes, rales or rhonchi. No chest wall tenderness is noted on palpation or with deep breathing. Diminished air entry bilateral. HEART: Regular rate and rhythm without murmurs, rubs or gallops. S1 and S2 heard. ABDOMEN: Soft, nontender. Bowel sounds are heard. No organomegaly noted. EXTREMITIES: 2+ peripheral pulses with no evidence of peripheral edema and no calf tenderness noted. NEUROLOGIC: Patient is awake, alert and oriented x3. Results 07/19/17 02:10 07/19/17 02:10 Cardiac Enzymes 07/19/17 07/19/17 Range/Units 02:10 02:10 AST 24 (17-59) U/L CK-MB (CK-2) 1.2 (0.0-2.4) ng/mL Troponin I <0.012 (0.000-0.034) ng/mL Coagulation 07/19/17 Range/Units 02:10 PT 10.0 (9.0-12.0) sec APTT 23.8 (22.0-30.0) sec CBC 07/19/17 Range/Units 02:10 WBC 14.0 H (3.8-10.6) k/uL RBC 4.94 (4.30-5.90) m/uL Hgb 13.8 (13.0-17.5) gm/dL Hct 44.0 (39.0-53.0) % Plt Count 315 (150-450) k/uL Comprehensive Metabolic Panel 07/19/17 Range/Units 02:10 Sodium 136 L (137-145) mmol/L Potassium 4.3 (3.5-5.1) mmol/L Chloride 104 (98-107) mmol/L Carbon Dioxide 24 (22-30) mmol/L BUN 10 (9-20) mg/dL Creatinine 0.80 (0.66-1.25) mg/dL Glucose 92 (74-99) mg/dL Calcium 9.4 (8.4-10.2) mg/dL AST 24 (17-59) U/L ALT 32 (21-72) U/L Alkaline Phosphatase 131 H (38-126) U/L Total Protein 6.7 (6.3-8.2) g/dL Albumin 4.2 (3.5-5.0) g/dL Current Medications Generic Name Dose Route Start Last Admin Trade Name Freq PRN Reason Stop Dose Admin Aspirin 325 mg 07/20/17 09:00 Aspirin PO DAILY HANNAH Heparin Sodium/Dextrose 25,000 500 mls @ 14.04 mls/hr 07/19/17 04:45 05:07 unit/ IV Solution IV 12 units/kg/hr .Q24H HANNAH 14.04 mls/hr Protocol Administration 12 UNITS/KG/HR Sodium Chloride 1,000 mls @ 20 mls/hr 07/19/17 04:45 07/19/17 05:10 Saline 0.9% IV 20 mls/hr .Q24H HANNAH Administration Nitroglycerin 0.4 mg 07/19/17 04:38 Nitrostat SUBLINGUAL Q5M PRN Chest Pain Intake and Output 07/18/17 07/19/17 07/19/17 22:59 06:59 14:59 Other: # Voids 1 Weight 58.513 kg 07/19/17 02:10 07/19/17 02:10 EKG Interpretations (text) EKG indicates normal sinus mechanism with no acute ST or T-wave abnormality. Assessment and Plan Plan: ASSESSMENT 1. Chest pain, atypical 2. COPD with leukocytosis 3. Chronic tobacco abuse PLAN Obtain serial cardiac enzymes; if these are normal IV heparin may be discontinued. He should be medically treated for his COPD at this time. Smoking cessation discussed at length. No further cardiac workup at this point if the cardiac enzymes are completely normal. Nurse Practitioner note has been reviewed, I agree with a documented findings and plan of care. Patient was seen and examined.
--- NOTE | 2017-07-19 11:46 | P.HPIM ---
History of Present Illness 47-year-old male came in with complaints of shortness of breath and patient's COPD is acting up. Patient is not on any medications at home. Aberrantly patient complained about sharp chest pain because of which patient was admitted for rule out acute coronary syndromes patient underwent evaluation by cardiology and patient was ruled out acute coronary syndromes with the troponins and EKGs all of which essentially came back negative. Patient was cleared from cardiac perspective patient denied any chest pain to me. Patient was comparing of cough without any sputum production. Patient does have decreased air entry into bilateral lung driver. Patient had an echo cardiac exam which showed normal ejection fraction and stress echo did not show any stress-induced ischemia. Review of Systems REVIEW OF SYSTEMS: CONSTITUTIONAL: No fever, no malaise, no fatigue. HEENT: No recent visual problems or hearing problems. Denied any sore throat. CARDIOVASCULAR: No chest pain, orthopnea, PND, no palpitations, no syncope. PULMONARY: As mentioned in HPI GASTROINTESTINAL: No diarrhea, no nausea, no vomiting, no abdominal pain. Normoactive bowel sounds. NEUROLOGICAL: No headaches, no weakness, no numbness. HEMATOLOGICAL: Denies any bleeding or petechiae. GENITOURINARY: Denies any burning micturition, frequency, or urgency. MUSCULOSKELETAL/RHEUMATOLOGICAL: Denies any joint pain, swelling, or any muscle pain. ENDOCRINE: Denies any polyuria or polydipsia. The rest of the 14-point review of systems is negative. Past Medical History Past Medical History: COPD, CVA/TIA, Myocardial Infarction ([place]) Additional Past Medical History / Comment(s): cerebral aneurysm Last Myocardial Infarction Date:: History of Any Multi-Drug Resistant Organisms: None Reported Past Surgical History: Heart Catheterization Past Anesthesia/Blood Transfusion Reactions: Previous Problems w/ Anesthesia Additional Past Anesthesia/Blood Transfusion Reaction / Comment(s): Hard to wake up Past Psychological History: Anxiety, Bipolar, Depression, Schizophrenia Smoking Status: Current every day smoker Past Alcohol Use History: Occasional Past Drug Use History: Marijuana - Past Family History Mother Family Medical History: CVA/TIA Father Additional Family Medical History / Comment(s): Emphesema Medications and Allergies Home Medications Medication Instructions Recorded Confirmed Type Albuterol Inhaler [Ventolin Hfa 1 - 2 puff INHALATION Q6HR PRN #1 07/19/17 Rx Inhaler] inhaler Budesonide-Formot 160-4.5 Mcg 2 puff INHALATION BID #1 inhaler 07/19/17 Rx [Symbicort 160-4.5 Mcg Inhaler] Doxycycline Monohydrate [Monodox] 100 mg PO Q12HR #10 cap 07/19/17 Rx Tiotropium [place] [Spiriva] 1 cap INHALATION DAILY #1 device 07/19/17 Rx Allergies Allergy/AdvReac Type Severity Reaction Status Date / Time horseradish Allergy Anaphylaxis Verified 07/19/17 08:13 shellfish derived [Shellfish] Allergy Anaphylaxis Verified 07/19/17 08:13 venom-wasp Allergy Anaphylaxis Verified 07/19/17 08:13 Physical Exam Vitals: Vital Signs Temp Pulse Pulse Resp BP BP Pulse Ox 07/19/17 08:00 98 F 64 16 99/57 98 07/19/17 06:15 16 07/19/17 05:32 98.1 F 79 16 103/61 96 07/19/17 04:31 97.9 F 70 18 142/59 98 07/19/17 02:45 97.6 F 69 18 118/80 97 07/19/17 01:15 97.3 F L 70 18 105/64 99 Intake and Output 07/18/17 07/19/17 07/19/17 22:59 06:59 14:59 Other: Voiding Method Toilet # Voids 1 Weight 58.513 kg PHYSICAL EXAMINATION: GENERAL: The patient is alert and oriented x3, not in any acute distress. Well developed, well nourished. HEENT: Pupils are round and equally reacting to light. EOMI. No scleral icterus. No conjunctival pallor. Normocephalic, atraumatic. No pharyngeal erythema. No thyromegaly. CARDIOVASCULAR: S1 and S2 present. No murmurs, rubs, or gallops. PULMONARY: Decreased air entry into bilateral lung driver, no wheezing or crackles. ABDOMEN: Soft, nontender, nondistended, normoactive bowel sounds. No palpable organomegaly. MUSCULOSKELETAL: No joint swelling or deformity. EXTREMITIES: No cyanosis, clubbing, or pedal edema. NEUROLOGICAL: Gross neurological examination did not reveal any focal deficits. SKIN: No rashes. Results CBC & Chem 7: 07/19/17 02:10 07/19/17 02:10 Labs: Abnormal Lab Results - Last 24 Hours (Table) 07/19/17 07/19/17 Range/Units 02:10 02:10 WBC 14.0 H (3.8-10.6) k/uL RDW 15.6 H (11.5-15.5) % Neutrophils # 9.4 H (1.3-7.7) k/uL Sodium 136 L (137-145) mmol/L Alkaline Phosphatase 131 H (38-126) U/L Thrombosis Risk Factor Assmnt - Choose All That Apply Each Factor Represents 1 point: Abnormal pulmonary function (COPD), Age 41-60 years Thrombosis Risk Factor Assessment Total Risk Factor Score: 2 Thrombosis Risk Factor Assessment Level: Low Risk Assessment and Plan Plan: #1 shortness of breath: Probability of COPD exacerbation on admission although he doesn't have any significant wheeze. Patient will be started on Symbicort, albuterol,. Tiotropium along with doxycycline and will be discharged. I do not believe patient will need any systemic steroids #2 ruled out acute coronary syndromes and unstable angina #3 leukocytosis: Without any signs or symptoms of infection patient may have bronchitis which is contributing to his leukocytosis that it may be reactive
--- NOTE | 2017-07-19 11:46 | P.DS ---
Providers Date of admission: 07/19/17 04:31 Attending physician: Shira Jeter Consults: 07/19/17 04:38 Consult Physician Urgent Consulting Provider: [facility] Consult Reason/Comments: Chest Pain Do you want consulting provider notified?: Yes Primary care physician: Kelsey Guo [facility] Course: Please refer to my HPI Patient Condition at Discharge: Fair Plan - Discharge Summary New Discharge Prescriptions: New Albuterol Inhaler [Ventolin Hfa Inhaler] 1 - 2 puff INHALATION Q6HR PRN #1 inhaler PRN Reason: Shortness Of Breath Or Wheezing Budesonide-Formot 160-4.5 Mcg [Symbicort 160-4.5 Mcg Inhaler] 2 puff INHALATION BID #1 inhaler Tiotropium [place] [Spiriva] 1 cap INHALATION DAILY #1 device Doxycycline Monohydrate [Monodox] 100 mg PO Q12HR #10 cap Discharge Medication List Albuterol Inhaler [Ventolin Hfa Inhaler] 1 - 2 puff INHALATION Q6HR PRN #1 inhaler 07/19/17 [Rx] Budesonide-Formot 160-4.5 Mcg [Symbicort 160-4.5 Mcg Inhaler] 2 puff INHALATION BID #1 inhaler 07/19/17 [Rx] Doxycycline Monohydrate [Monodox] 100 mg PO Q12HR #10 cap 07/19/17 [Rx] Tiotropium [place] [Spiriva] 1 cap INHALATION DAILY #1 device 07/19/17 [Rx] Follow up Appointment(s)/Referral(s): Kelsey Guo MD [Primary Care Provider] - 3 Days Discharge Disposition: HOME SELF-CARE
[2017-07-19 12:16] VITALS: BP 99/63; PULSE 73; RESP 18
[2017-07-20] MEDS ORDERED: ASPIRIN 325 MG TAB PO SCH (09:00)
== END 2017-07-19 13:12 | disposition home or self-care (01) ==
LOC: EC 01:02 → 3OBS 04:31
PROVIDERS: ADMIT Hospitalist; ATTEND Hospitalist
DX: R07.2 Precordial pain (principal); R07.89 Other chest pain; R06.02 Shortness of breath; R05 Cough; R61 Generalized hyperhidrosis; J44.9 Chronic obstructive pulmonary disease, unspecified; D72.829 Elevated white blood cell count, unspecified; F17.200 Nicotine dependence, unspecified, uncomplicated; I25.2 Old myocardial infarction; Z86.73 Personal history of transient ischemic attack (TIA), and cerebral infarction without residual deficits; Z91.013 Allergy to seafood; Z91.018 Allergy to other foods; Z91.048 Other nonmedicinal substance allergy status
CPT/HCPCS: 36415; 71020; 80053; 82550; 82553; 83735; 84484; 85025; 85610; 85730; 93005; 96361; 96365; 96376; 99285

== ENCOUNTER 2017-08-07 18:44 | Emergency (ER) | payer OTHER ==
[2017-08-07 18:49] VITALS: BP 110/76; PULSE 78; RESP 18; TEMP 96.9
--- NOTE | 2017-08-07 18:59 | ED ---
Extremity Problem HPI - General Chief complaint: Extremity Problem,Nontraumatic Stated complaint: rt leg pain Time Seen by Provider: 08/07/17 18:50 Source: patient, RN notes reviewed Mode of arrival: ambulatory Limitations: no limitations - History of Present Illness Initial comments: 47-year-old male presents emergency department tingling right ankle pain. Patient states that he may have stepped awkwardly on it because he does a large amount walking every day states that he walks several miles. Patient states he noticed the swelling on the lateral aspect. He has had a prior fracture this when he was a child. Denies any focal pain no proximal leg pain denies any calf swelling or any calf pain. No history DVT denies any rashes. - Related Data Home Medications Medication Instructions Recorded Confirmed Albuterol Inhaler [Ventolin Hfa 1 - 2 puff INHALATION RT-Q6H PRN 08/07/17 Inhaler] Budesonide-Formot 160-4.5 Mcg 2 puff INHALATION RT-BID 08/07/17 08/07/17 [Symbicort 160-4.5 Mcg Inhaler] Divalproex Sodium [Depakote] 1,000 mg PO HS 08/07/17 08/07/17 QUEtiapine [SEROquel] 100 mg PO HS 08/07/17 08/07/17 Tiotropium [place] [Spiriva] 1 cap INHALATION RT-DAILY 08/07/17 08/07/17 Previous Rx's Medication Instructions Recorded Acetaminophen-Codeine 300-30mg 1 tab PO Q4H PRN #20 tablet 08/07/17 [Tylenol #3] Ibuprofen [Motrin] 600 mg PO Q8HR PRN #30 tab 08/07/17 Allergies Allergy/AdvReac Type Severity Reaction Status Date / Time horseradish Allergy Anaphylaxis Verified 08/07/17 19:08 shellfish derived [Shellfish] Allergy Anaphylaxis Verified 08/07/17 19:08 venom-wasp Allergy Anaphylaxis Verified 08/07/17 19:08 Review of Systems ROS Statement: Those systems with pertinent positive or pertinent negative responses have been documented in the HPI. ROS Other: All systems not noted in ROS Statement are negative. Past Medical History Past Medical History: COPD, CVA/TIA, Myocardial Infarction ([place]) Additional Past Medical History / Comment(s): cerebral aneurysm Last Myocardial Infarction Date:: History of Any Multi-Drug Resistant Organisms: None Reported Past Surgical History: Heart Catheterization Past Anesthesia/Blood Transfusion Reactions: Previous Problems w/ Anesthesia Additional Past Anesthesia/Blood Transfusion Reaction / Comment(s): Hard to wake up Past Psychological History: Anxiety, Bipolar, Depression, Schizophrenia Smoking Status: Current every day smoker Past Alcohol Use History: Occasional Past Drug Use History: Marijuana - Past Family History Mother Family Medical History: CVA/TIA Father Additional Family Medical History / Comment(s): Emphesema General Exam Limitations: no limitations General appearance: alert, in no apparent distress Head exam: Present: atraumatic, normocephalic, normal inspection Respiratory exam: Present: normal lung sounds bilaterally. Absent: respiratory distress, wheezes, rales, rhonchi, stridor Cardiovascular Exam: Present: regular rate, normal rhythm, normal heart sounds. Absent: systolic murmur, diastolic murmur, rubs, gallop, clicks Extremities exam: Present: other (Right ankle there is tenderness the lateral aspect with moderate swelling patient has pain with inversion and eversion flexion extension there is no foot tenderness and no tenderness over the metatarsals. There is no calf swelling. Pedal pulses are equal bilaterally) Skin exam: Present: warm, dry, intact, normal color. Absent: rash Course Vital Signs 08/07/17 18:47 Temperature 96.9 F L Pulse Rate 78 Respiratory 18 Rate Blood Pressure 110/76 O2 Sat by Pulse 100 Oximetry Medical Decision Making - Medical Decision Making 47-year-old male present emergency from for ankle pain. Patient is right ankle sprain there is mild swelling. Patient be given ibuprofen, codeine return parameters were discussed. Disposition Clinical Impression: Right ankle sprain Disposition: HOME SELF-CARE Condition: Stable Instructions: Ankle Sprain (ED) Additional Instructions: Please return to the Emergency Department if symptoms worsen or any other concerns. Prescriptions: Acetaminophen-Codeine 300-30mg [Tylenol #3] 1 tab PO Q4H PRN #20 tablet PRN Reason: pain Ibuprofen [Motrin] 600 mg PO Q8HR PRN #30 tab PRN Reason: Pain Referrals: Flash Schofield MD [Primary Care Provider] - 1-2 days Time of Disposition: 19:58
--- NOTE | 2017-08-07 19:28 | XR ---
EXAMINATION TYPE: XR ankle complete RT DATE OF EXAM: 08/07/2017 CLINICAL HISTORY: Right ankle pain TECHNIQUE: Frontal, lateral and oblique images of the right ankle are obtained. COMPARISON: None. FINDINGS: A well-corticated 9 mm ossific fragment from the lateral malleolus likely reflects old avu lsion type fracture. There is no acute fracture/dislocation evident in the right ankle. The ankle mo rtise appears within normal limits. The overlying soft tissue appears unremarkable. IMPRESSION: There is no acute fracture or dislocation in the right ankle.
== END 2017-08-07 20:06 | disposition home or self-care (01) ==
LOC: EC 18:44
DX: S93.401A Sprain of unspecified ligament of right ankle, initial encounter (principal); J44.9 Chronic obstructive pulmonary disease, unspecified; F31.9 Bipolar disorder, unspecified; F20.9 Schizophrenia, unspecified; F17.200 Nicotine dependence, unspecified, uncomplicated; Z86.73 Personal history of transient ischemic attack (TIA), and cerebral infarction without residual deficits; Z95.5 Presence of coronary angioplasty implant and graft; Z91.013 Allergy to seafood; Z91.018 Allergy to other foods; Z91.038 Other insect allergy status; Z79.51 Long term (current) use of inhaled steroids; Z79.899 Other long term (current) drug therapy; X58.XXXA Exposure to other specified factors, initial encounter
CPT/HCPCS: 99283

== ENCOUNTER 2017-12-04 03:21 | Emergency (ER) | payer OTHER ==
[2017-12-04 03:31] VITALS: RESP 18
[2017-12-04] MEDS ORDERED: SODIUM CHLORIDE 0.9% 1,000 ML IV STA (03:38)
--- NOTE | 2017-12-04 03:59 | ED ---
Headache HPI - General Chief Complaint: Headache Stated Complaint: Dizziness Time Seen by Provider: 12/04/17 03:32 Source: RN notes reviewed, old records reviewed Mode of arrival: ambulatory Limitations: no limitations - History of Present Illness Initial Comments: patient is a 47-year-old male presents today chief complaint of a episode of severe headache and shaking yesterday evening at 10:30 at night. Patient reports that he had this episode and had double vision and triple vision when it occurred and lasted for approximately 10 minutes. He reports that he was at his friend's house. Patient states that afterwards he took a short nap, woke up and was concerned due to his history of the symptoms. And is now in the ER to be evaluated. At this time. Denies any headache, vision changes chest pain or shortness of breath. He states that he has a history of aneurysm, stroke. He was concerned due to his symptoms he wanted to come to the emergency department to be evaluated. He reports that he taking his medication, denies any specific head injury or loss of consciousness. He states that he has no significant seizure history.Critical history includes COPD, CVA, and [place]. - Related Data Home Medications Medication Instructions Recorded Confirmed Albuterol Inhaler [Ventolin Hfa 1 - 2 puff INHALATION RT-Q6H PRN 08/07/17 Inhaler] Budesonide-Formot 160-4.5 Mcg 2 puff INHALATION RT-BID 08/07/17 08/07/17 [Symbicort 160-4.5 Mcg Inhaler] Divalproex Sodium [Depakote] 1,000 mg PO HS 08/07/17 08/07/17 QUEtiapine [SEROquel] 100 mg PO HS 08/07/17 08/07/17 Tiotropium [place] [Spiriva] 1 cap INHALATION RT-DAILY 08/07/17 08/07/17 Previous Rx's Medication Instructions Recorded Acetaminophen-Codeine 300-30mg 1 tab PO Q4H PRN #20 tablet 08/07/17 [Tylenol #3] Ibuprofen [Motrin] 600 mg PO Q8HR PRN #30 tab 08/07/17 Allergies Allergy/AdvReac Type Severity Reaction Status Date / Time horseradish Allergy Anaphylaxis Verified 08/07/17 19:08 shellfish derived [Shellfish] Allergy Anaphylaxis Verified 08/07/17 19:08 venom-wasp Allergy Anaphylaxis Verified 08/07/17 19:08 Review of Systems ROS Statement: Those systems with pertinent positive or pertinent negative responses have been documented in the HPI. ROS Other: All systems not noted in ROS Statement are negative. Past Medical History Past Medical History: COPD, CVA/TIA, Myocardial Infarction ([place]) Additional Past Medical History / Comment(s): cerebral aneurysm Last Myocardial Infarction Date:: History of Any Multi-Drug Resistant Organisms: None Reported Past Surgical History: Heart Catheterization Past Anesthesia/Blood Transfusion Reactions: Previous Problems w/ Anesthesia Additional Past Anesthesia/Blood Transfusion Reaction / Comment(s): Hard to wake up Past Psychological History: Anxiety, Bipolar, Depression, Schizophrenia Smoking Status: Current every day smoker Past Alcohol Use History: Occasional Past Drug Use History: Marijuana - Past Family History Mother Family Medical History: CVA/TIA Father Additional Family Medical History / Comment(s): Emphesema General Exam - General Exam Comments Initial Comments: this patient is a 47-year-old male. Alert and oriented 4. No acute distress. Patient appears older than given age. Limitations: no limitations General appearance: alert, in no apparent distress Head exam: Present: atraumatic, normocephalic, normal inspection Eye exam: Present: normal appearance, PERRL, EOMI. Absent: scleral icterus, conjunctival injection, periorbital swelling ENT exam: Present: normal exam, mucous membranes moist, other (patient is a extremely poor dentition. Full caries and missing teeth.) Neck exam: Present: normal inspection. Absent: tenderness, meningismus, lymphadenopathy Respiratory exam: Present: normal lung sounds bilaterally. Absent: respiratory distress, wheezes, rales, rhonchi, stridor Cardiovascular Exam: Present: regular rate, normal rhythm, normal heart sounds. Absent: systolic murmur, diastolic murmur, rubs, gallop, clicks GI/Abdominal exam: Present: soft, normal bowel sounds. Absent: distended, tenderness, guarding, rebound, rigid Extremities exam: Present: normal inspection, full ROM, normal capillary refill. Absent: tenderness, pedal edema, joint swelling, calf tenderness Back exam: Present: normal inspection Neurological exam: Present: alert, oriented X3, CN II-XII intact Expanded Patient oriented to: Present: person, place, time Speech: Present: fluid speech Cranial nerves: EOM's Intact: Normal, Gag Reflex: Normal, Tongue Deviation: Normal, Facial Sensation: Normal Cerebellar function: Finger to Nose: Normal Upper motor neuron: Pronator Drift: Normal Sensory exam: Upper Extremity Light Touch: Normal, Lower Extremity Light Touch: Normal Motor strength exam: RUE: 5, LUE: 5, RLE: 5, LLE: 5 Eye Response: (4) open spontaneously Motor Response: (6) obeys commands Verbal Response: (5) oriented [place] Total: 15 Psychiatric exam: Present: normal affect, normal mood Skin exam: Present: warm, dry, intact, normal color. Absent: rash Course Vital Signs 12/04/17 03:26 Temperature 97.6 F Pulse Rate 104 H Respiratory 18 Rate Blood Pressure 130/65 O2 Sat by Pulse 97 Oximetry Medical Decision Making - Medical Decision Making 39-year-old male presents today with an episode of blurry vision, and headache that lasted proximally 10 minutes earlier this evening. He states he fell asleep shortly afterward his friend's house. He was then kicked out of his friend's house and decided to come here for further evaluation. He does relate that he is homeless. Patient has no neurological deficits at this time, denies any headache, chest pain drugs breath or any other symptoms. Patient very tired. At this time patient's labwork was reviewed all within normal limits. He did have some mild leukocytosis. I discussed all infectious signs no fevers. Patient CT of the brain was normal. Chest x-ray is normal. At this time again he has no deficits, no physical complaints at this time. I will discharge the patient advised them to follow-up with her [facility] physician. Discussed the case with Dr. Goff. I do believe patient came here seeking refuge after a Friend's house. Again he has no complaints. Patient will be discharged. - Lab Data Result diagrams: 12/04/17 03:55 12/04/17 03:55 Lab Results 12/04/17 12/04/17 12/04/17 Range/Units 03:55 03:55 03:55 WBC 14.2 H (3.8-10.6) k/uL RBC 4.36 (4.30-5.90) m/uL Hgb 12.6 L (13.0-17.5) gm/dL Hct 40.1 (39.0-53.0) % MCV 91.9 (80.0-100.0) fL MCH 28.9 (25.0-35.0) pg MCHC 31.4 (31.0-37.0) g/dL RDW 13.4 (11.5-15.5) % Plt Count 294 (150-450) k/uL Neutrophils % 72 % Lymphocytes % 19 % Monocytes % 5 % Eosinophils % 2 % Basophils % 1 % Neutrophils # 10.2 H (1.3-7.7) k/uL Lymphocytes # 2.7 (1.0-4.8) k/uL Monocytes # 0.8 (0-1.0) k/uL Eosinophils # 0.3 (0-0.7) k/uL Basophils # 0.1 (0-0.2) k/uL PT 9.7 (9.0-12.0) sec INR 1.0 (<1.2) APTT 23.6 (22.0-30.0) sec Sodium 139 (137-145) mmol/L Potassium 4.1 (3.5-5.1) mmol/L Chloride 101 (98-107) mmol/L Carbon Dioxide 27 (22-30) mmol/L Anion Gap 11 mmol/L BUN 21 H (9-20) mg/dL Creatinine 1.06 (0.66-1.25) mg/dL Est GFR (MDRD) Af Amer >60 (>60 ml/min/1.73 sqM) Est GFR (MDRD) Non-Af >60 (>60 ml/min/1.73 sqM) Glucose 150 H (74-99) mg/dL Calcium 9.5 (8.4-10.2) mg/dL Total Bilirubin 0.6 (0.2-1.3) mg/dL AST 39 (17-59) U/L ALT 26 (21-72) U/L Alkaline Phosphatase 104 (38-126) U/L Total Protein 6.6 (6.3-8.2) g/dL Albumin 4.2 (3.5-5.0) g/dL 12/04/17 04:01 EKG shows normal sinus rhythm, normal EKG. Ventricular rate of 86 bpm. [place] interval 140 ms. QRS duration 80 ms. QT QTc is 376/449 ms. No evidence of ST elevation or T-wave inversion. No evidence of atrial or ventricular arrhythmias. - Radiology Data Radiology results: report reviewed chest x-rays reviewed and negative for any acute process. CT brain shows no acute abnormalities at this time. Disposition Clinical Impression: Vision disturbance Disposition: HOME SELF-CARE Condition: Good Instructions: Blurred Vision (ED) Additional Instructions: follow-up with primary care physician. Return to emergency department if these symptoms recur. Referrals: Flash Schofield MD [Primary Care Provider] - 1-2 days Time of Disposition: 04:58
[2017-12-04 04:14] LABS: Basophils # (A) 0.1 k/uL (0-0.2); Basophils % (A) 1 %; Eosinophils # (A) 0.3 k/uL (0-0.7); Eosinophils % (A) 2 %; HCT 40.1 % (39.0-53.0); HGB 12.6 gm/dL (13.0-17.5); Lymphocytes # (A) 2.7 k/uL (1.0-4.8); Lymphocytes % (A) 19 %; MCH 28.9 pg (25.0-35.0); MCHC 31.4 g/dL (31.0-37.0); MCV 91.9 fL (80.0-100.0); Mean Platelet Volume 6.7; Monocytes # (A) 0.8 k/uL (0-1.0); Monocytes % (A) 5 %; Neutrophils # (A) 10.2 k/uL (1.3-7.7); Neutrophils % (A) 72 %; Platelet Count 294 k/uL (150-450); RBC 4.36 m/uL (4.30-5.90); RDW 13.4 % (11.5-15.5); WBC 14.2 k/uL (3.8-10.6)
[2017-12-04 04:24] LABS: Partial Thromboplastin Time 23.6 sec (22.0-30.0); Prothrombin Time 9.7 sec (9.0-12.0)
[2017-12-04 04:25] LABS: ALT 26 U/L (21-72); AST 39 U/L (17-59); Albumin 4.2 g/dL (3.5-5.0); Alkaline Phosphatase 104 U/L (38-126); Anion Gap 11 mmol/L; Blood Urea Nitrogen 21 mg/dL (9-20); Calcium 9.5 mg/dL (8.4-10.2); Carbon Dioxide 27 mmol/L (22-30); Chloride 101 mmol/L (98-107); Glucose 150 mg/dL (74-99); Potassium 4.1 mmol/L (3.5-5.1); Sodium 139 mmol/L (137-145); Total Bilirubin 0.6 mg/dL (0.2-1.3); Total Protein 6.6 g/dL (6.3-8.2)
--- NOTE | 2017-12-04 04:25 | XR ---
EXAM: XR Chest, 2 Views CLINICAL HISTORY: ITS.REASON XR Reason: altered mental status TECHNIQUE: Frontal and lateral views of the chest. COMPARISON: No relevant prior studies available. FINDINGS: Lungs: No consolidation. Pleural space: No effusion. No pneumothorax. Heart: Unremarkable. No cardiomegaly. Mediastinum: Unremarkable. Bones/joints: Stable deformity of the right acromioclavicular joint. Degenerative changes of the spine. IMPRESSION: No acute cardiopulmonary process.
--- NOTE | 2017-12-04 04:29 | CT ---
EXAM: CT Head Without Intravenous Contrast CLINICAL HISTORY: ITS.REASON CT Reason: Neuro Deficits TECHNIQUE: Axial computed tomography images of the head/brain without intravenous contrast. CTDI is 57 mGy and DLP is 967 mGy-cm. This CT exam was performed using one or more of the following dose reduction techniques: automated exposure control, adjustment of the mA and/or kV according to patient size, and/or use of iterative reconstruction technique. COMPARISON: 04/19/16 FINDINGS: Brain: No hemorrhage, large hypodensity, or mass effect. Evidence of prior injury to the right lentiform nucleus, likely from a prior infarct. Ventricles: No hydrocephalus. 6 vacuo dilatation of the right lateral ventricle secondary to the right lentiform nucleus volume loss. Bones/joints: Unremarkable. Soft tissues: Unremarkable. Sinuses: Unremarkable. Mastoid air cells: Clear. IMPRESSION: No acute hemorrhage, hydrocephalus, or mass effect.
[2017-12-04 04:39] LABS: Creatine Kinase 795 U/L (55-170)
[2017-12-04 04:52] LABS: Troponin I <0.012 ng/mL (0.000-0.034)
[2017-12-04 05:01] LABS: Creatine Kinase MB 6.3 ng/mL (0.0-2.4)
[2017-12-04 05:30] VITALS: BP 125/68; PULSE 102; TEMP 97.8
== END 2017-12-04 05:30 | disposition home or self-care (01) ==
LOC: EC 03:21
DX: H53.9 Unspecified visual disturbance (principal); D72.829 Elevated white blood cell count, unspecified; K02.9 Dental caries, unspecified; K08.499 Partial loss of teeth due to other specified cause, unspecified class; R25.9 Unspecified abnormal involuntary movements; J44.9 Chronic obstructive pulmonary disease, unspecified; F20.9 Schizophrenia, unspecified; F31.9 Bipolar disorder, unspecified; F17.200 Nicotine dependence, unspecified, uncomplicated; Z79.51 Long term (current) use of inhaled steroids; Z79.899 Other long term (current) drug therapy; Z91.038 Other insect allergy status; Z91.013 Allergy to seafood; Z91.018 Allergy to other foods; Z59.0 Homelessness; Z86.73 Personal history of transient ischemic attack (TIA), and cerebral infarction without residual deficits
CPT/HCPCS: 36415; 70450; 71046; 80053; 82550; 82553; 84484; 85025; 85610; 85730; 93005; 99285

== ENCOUNTER 2017-12-10 03:49 | Emergency (ER) | payer OTHER ==
[2017-12-10 04:04] VITALS: PULSE 79; TEMP 96.8
[2017-12-10] MEDS ORDERED: diphenhydrAMINE 50 MG/ML 1 ML VIAL IVP STA (04:15)
[2017-12-10] MEDS ORDERED: SODIUM CHLORIDE 0.9% 500 ML IV STA (04:15)
[2017-12-10] MEDS ORDERED: METOCLOPRAMIDE 5 MG/ML 2 ML VIAL IVP STA (04:15)
[2017-12-10] MEDS ORDERED: KETOROLAC 30 MG/ML 1 ML VIAL IVP STA (04:15)
--- NOTE | 2017-12-10 05:52 | ED ---
Headache HPI - General Chief Complaint: Headache Stated Complaint: Headache Time Seen by Provider: 12/10/17 04:07 Mode of arrival: ambulatory Limitations: no limitations - History of Present Illness Initial Comments: This patient is a 47-year-old man with history of previous headaches, who states that he is having 2 days of what he terms migraine. He indicates that this is what he usually experiences. He states the headache starts in the occipital area and then seems to be more diffuse. As a constant, throbbing sensation. He states that it is moderate intensity. He states that he has not have any home medication for this. He denies any worsening or relieving factors. No neck stiffness or pain. No neurologic symptoms. MD Complaint: headache Onset/Timin -: days(s) Onset Description: gradual Location: diffuse Severity: moderate Quality: throbbing, similar to previous headaches Consistency: constant Improves With: nothing Worsens With: none Context: occurred at rest - Related Data Home Medications Medication Instructions Recorded Confirmed Albuterol Inhaler [Ventolin Hfa 1 - 2 puff INHALATION RT-Q6H PRN 08/07/17 Inhaler] Budesonide-Formot 160-4.5 Mcg 2 puff INHALATION RT-BID 08/07/17 08/07/17 [Symbicort 160-4.5 Mcg Inhaler] Divalproex Sodium [Depakote] 1,000 mg PO HS 08/07/17 08/07/17 QUEtiapine [SEROquel] 100 mg PO HS 08/07/17 08/07/17 Tiotropium [place] [Spiriva] 1 cap INHALATION RT-DAILY 08/07/17 08/07/17 Previous Rx's Medication Instructions Recorded Acetaminophen-Codeine 300-30mg 1 tab PO Q4H PRN #20 tablet 08/07/17 [Tylenol #3] Ibuprofen [Motrin] 600 mg PO Q8HR PRN #30 tab 08/07/17 Allergies Allergy/AdvReac Type Severity Reaction Status Date / Time horseradish Allergy Anaphylaxis Verified 08/07/17 19:08 shellfish derived [Shellfish] Allergy Anaphylaxis Verified 08/07/17 19:08 venom-wasp Allergy Anaphylaxis Verified 08/07/17 19:08 Review of Systems ROS Statement: Those systems with pertinent positive or pertinent negative responses have been documented in the HPI. ROS Other: All systems not noted in ROS Statement are negative. Constitutional: Denies: fever, chills, weakness Eyes: Denies: eye pain, vision change ENT: Denies: ear pain, hearing loss, congestion Respiratory: Denies: cough, dyspnea Cardiovascular: Denies: chest pain, palpitations, syncope Gastrointestinal: Denies: abdominal pain, nausea, vomiting Musculoskeletal: Denies: back pain Skin: Denies: rash Neurological: Reports: headache. Denies: weakness, numbness, paresthesias, confusion Past Medical History Past Medical History: COPD, CVA/TIA, Myocardial Infarction ([place]) Additional Past Medical History / Comment(s): cerebral aneurysm Last Myocardial Infarction Date:: History of Any Multi-Drug Resistant Organisms: None Reported Past Surgical History: Heart Catheterization Past Anesthesia/Blood Transfusion Reactions: Previous Problems w/ Anesthesia Additional Past Anesthesia/Blood Transfusion Reaction / Comment(s): Hard to wake up Past Psychological History: Anxiety, Bipolar, Depression, Schizophrenia Smoking Status: Current every day smoker Past Alcohol Use History: Occasional Past Drug Use History: Marijuana - Past Family History Mother Family Medical History: CVA/TIA Father Additional Family Medical History / Comment(s): Emphesema General Exam Limitations: no limitations General appearance: alert, in no apparent distress Head exam: Present: atraumatic, normocephalic Eye exam: Present: normal appearance, PERRL, EOMI. Absent: scleral icterus, conjunctival injection ENT exam: Present: normal oropharynx Neck exam: Present: normal inspection, full ROM. Absent: tenderness, meningismus Respiratory exam: Present: normal lung sounds bilaterally. Absent: respiratory distress, wheezes, rales, rhonchi, stridor Cardiovascular Exam: Present: regular rate, normal rhythm, normal heart sounds. Absent: systolic murmur, diastolic murmur, rubs, gallop GI/Abdominal exam: Present: soft. Absent: distended, tenderness, guarding, rebound Extremities exam: Present: normal inspection, normal capillary refill. Absent: pedal edema, calf tenderness Back exam: Present: normal inspection. Absent: CVA tenderness (R), CVA tenderness (L) Neurological exam: Present: alert, oriented X3, CN II-XII intact, normal gait. Absent: motor sensory deficit Psychiatric exam: Present: normal affect Skin exam: Present: warm, dry, intact, normal color. Absent: rash Course Vital Signs 12/10/17 12/10/17 03:51 06:39 Temperature 96.8 F L Pulse Rate 79 79 Respiratory 18 16 Rate Blood Pressure 111/56 106/57 O2 Sat by Pulse 99 95 Oximetry Medical Decision Making - Medical Decision Making Patient's 47-year-old man who does state that he has history of headaches, and that he is having one of his usual headaches. He denies any new or atypical features related to this one. He did have a head CT here within the past month , related to some dizziness that he was having, that was interpreted as showing no acute changes. He has had relief with medication here and will follow up with neurology. Discussed return parameters. Disposition Clinical Impression: Headache Disposition: HOME SELF-CARE Condition: Good Instructions: Acute Headache (ED) Referrals: Flash Schofield MD [Primary Care Provider] - 1-2 days Alaina Porras MD [STAFF PHYSICIAN] - 1-2 days
[2017-12-10 06:40] VITALS: BP 106/57; RESP 16
== END 2017-12-10 06:40 | disposition home or self-care (01) ==
LOC: EC 03:49
DX: R51 Headache (principal); J44.9 Chronic obstructive pulmonary disease, unspecified; F20.9 Schizophrenia, unspecified; F31.9 Bipolar disorder, unspecified; F17.200 Nicotine dependence, unspecified, uncomplicated; Z79.51 Long term (current) use of inhaled steroids; Z79.899 Other long term (current) drug therapy; Z91.013 Allergy to seafood; Z91.018 Allergy to other foods; Z91.030 Bee allergy status
CPT/HCPCS: 99283; 96374; 96375 ×2; J1200; J2765; J1885

== ENCOUNTER 2017-12-13 02:52 | Emergency (ER) | payer SELFPAY ==
--- NOTE | 2017-12-13 03:16 | ED ---
Chest Pain HPI - General Chief Complaint: Chest Pain Stated Complaint: chest pain Time Seen by Provider: 12/13/17 03:15 Source: patient Mode of arrival: ambulatory Limitations: no limitations - History of Present Illness Initial Comments: This patient is a 47-year-old man who states that he had been walking around tonight when he developed left-sided chest pain. This was about 15-30 minutes ago. He describes as a aching pain, constant, moderate. There was no radiation and he did not notice any factors that make the pain better or worse. He did not have any associated symptoms. MD Complaint: chest pain Onset/Timin -: minutes(s) Onset: during exertion Pain Location: left chest (While walking) Pain Radiation: none Severity: moderate Quality: aching Consistency: constant Improves With: nothing Worsens With: nothing Treatments Prior to Arrival: none - Related Data Home Medications Medication Instructions Recorded Confirmed Albuterol Inhaler [Ventolin Hfa 1 - 2 puff INHALATION RT-Q6H PRN 08/07/17 Inhaler] Budesonide-Formot 160-4.5 Mcg 2 puff INHALATION RT-BID 08/07/17 12/13/17 [Symbicort 160-4.5 Mcg Inhaler] Divalproex Sodium [Depakote] 1,000 mg PO HS 08/07/17 12/13/17 QUEtiapine [SEROquel] 100 mg PO HS 08/07/17 12/13/17 Tiotropium [place] [Spiriva] 1 cap INHALATION RT-DAILY 08/07/17 12/13/17 Previous Rx's Medication Instructions Recorded Acetaminophen-Codeine 300-30mg 1 tab PO Q4H PRN #20 tablet 08/07/17 [Tylenol #3] Ibuprofen [Motrin] 600 mg PO Q8HR PRN #30 tab 08/07/17 Allergies Allergy/AdvReac Type Severity Reaction Status Date / Time horseradish Allergy Anaphylaxis Verified 12/16/17 23:17 shellfish derived [Shellfish] Allergy Anaphylaxis Verified 12/16/17 23:17 venom-wasp Allergy Anaphylaxis Verified 12/16/17 23:17 Review of Systems ROS Statement: Those systems with pertinent positive or pertinent negative responses have been documented in the HPI. ROS Other: All systems not noted in ROS Statement are negative. Constitutional: Denies: fever, chills Respiratory: Denies: cough, dyspnea Cardiovascular: Reports: chest pain. Denies: palpitations, dyspnea on exertion , orthopnea, edema, syncope Gastrointestinal: Denies: abdominal pain, nausea, vomiting Genitourinary: Denies: dysuria, hematuria Musculoskeletal: Denies: back pain Skin: Denies: rash Neurological: Denies: headache, weakness, numbness EKG Findings - EKG Results: EKG: interpreted by DEBORAH DE, sinus rhythm (Rate approximate 78 bpm), normal axis, normal QRS, normal ST/T, no acute changes - [place], Pacemaker, Normal: Normal tracing: normal tracing Past Medical History Past Medical History: COPD, CVA/TIA, Myocardial Infarction ([place]) Additional Past Medical History / Comment(s): cerebral aneurysm Last Myocardial Infarction Date:: History of Any Multi-Drug Resistant Organisms: None Reported Past Surgical History: Heart Catheterization Past Anesthesia/Blood Transfusion Reactions: Previous Problems w/ Anesthesia Additional Past Anesthesia/Blood Transfusion Reaction / Comment(s): Hard to wake up Past Psychological History: Anxiety, Bipolar, Depression, Schizophrenia Smoking Status: Current every day smoker Past Alcohol Use History: Occasional Past Drug Use History: Marijuana - Past Family History Mother Family Medical History: CVA/TIA Father Additional Family Medical History / Comment(s): Emphesema General Exam Limitations: no limitations General appearance: alert, in no apparent distress Head exam: Present: atraumatic, normocephalic Eye exam: Present: normal appearance. Absent: scleral icterus, conjunctival injection ENT exam: Present: normal oropharynx Neck exam: Present: normal inspection Respiratory exam: Present: normal lung sounds bilaterally. Absent: respiratory distress, wheezes, rales, rhonchi, stridor, chest wall tenderness Cardiovascular Exam: Present: regular rate, normal rhythm, normal heart sounds. Absent: systolic murmur, diastolic murmur, rubs, gallop GI/Abdominal exam: Present: soft. Absent: distended, tenderness, guarding, rebound, mass Extremities exam: Present: normal inspection, normal capillary refill. Absent: pedal edema, calf tenderness Back exam: Present: normal inspection. Absent: CVA tenderness (R), CVA tenderness (L) Neurological exam: Present: alert Skin exam: Present: warm, dry, intact, normal color. Absent: rash Course Vital Signs 0212/13/17 12/13/17 02:54 04:55 05:29 Temperature 97.0 F L Pulse Rate 88 66 56 L Respiratory 20 18 16 Rate Blood Pressure 107/57 94/51 110/66 O2 Sat by Pulse 98 98 98 Oximetry 12/13/17 12/13/17 12/13/17 06:58 07:15 07:44 Temperature 97.4 F L Pulse Rate 73 53 L 81 Respiratory 18 18 Rate Blood Pressure 102/66 86/53 98/70 O2 Sat by Pulse 98 99 99 Oximetry 12/13/17 08:58 Temperature Pulse Rate 77 Respiratory 18 Rate Blood Pressure 105/63 O2 Sat by Pulse 98 Oximetry Chest Pain [facility] Patient's 47-year-old man presenting with chest pain. He has had negative EKG and 2 negative troponins. Patient's symptoms have resolved. Discussed appropriate further care and follow-up as well as return parameters. Disposition Clinical Impression: Chest pain Disposition: HOME SELF-CARE Condition: Good Instructions: Chest Pain (ED) Referrals: Flash Schofield MD [Primary Care Provider] - 1-2 days
[2017-12-13 03:40] LABS: ALT 23 U/L (21-72); AST 27 U/L (17-59); Alkaline Phosphatase 118 U/L (38-126); Anion Gap 9 mmol/L; Blood Urea Nitrogen 9 mg/dL (9-20); Calcium 9.2 mg/dL (8.4-10.2); Carbon Dioxide 26 mmol/L (22-30); Chloride 103 mmol/L (98-107); Glucose 86 mg/dL (74-99); Magnesium 1.9 mg/dL (1.6-2.3); Potassium 4.6 mmol/L (3.5-5.1); Sodium 138 mmol/L (137-145); Total Bilirubin 0.4 mg/dL (0.2-1.3); Total Protein 6.3 g/dL (6.3-8.2)
[2017-12-13 03:47] LABS: Partial Thromboplastin Time 23.3 sec (22.0-30.0); Prothrombin Time 9.6 sec (9.0-12.0)
[2017-12-13 03:48] LABS: Basophils # (A) 0.1 k/uL (0-0.2); Basophils % (A) 1 %; Eosinophils # (A) 0.4 k/uL (0-0.7); Eosinophils % (A) 3 %; HCT 38.9 % (39.0-53.0); HGB 12.1 gm/dL (13.0-17.5); Lymphocytes # (A) 2.5 k/uL (1.0-4.8); Lymphocytes % (A) 18 %; MCH 28.9 pg (25.0-35.0); MCV 93.1 fL (80.0-100.0); Mean Platelet Volume 6.6; Monocytes # (A) 0.8 k/uL (0-1.0); Monocytes % (A) 6 %; Neutrophils # (A) 9.8 k/uL (1.3-7.7); Neutrophils % (A) 71 %; Platelet Count 337 k/uL (150-450); RBC 4.18 m/uL (4.30-5.90); RDW 13.4 % (11.5-15.5); WBC 13.8 k/uL (3.8-10.6)
[2017-12-13 03:51] LABS: Creatine Kinase 213 U/L (55-170)
--- NOTE | 2017-12-13 03:51 | XR ---
EXAM: XR Chest, 2 Views CLINICAL HISTORY: ITS.REASON XR Reason: Chest Pain TECHNIQUE: Frontal and lateral views of the chest. COMPARISON: Chest x-ray dated 12/04/2017. FINDINGS: Lungs: Unremarkable. The lungs are clear. Pleural space: Unremarkable. No pneumothorax. Heart: Unremarkable. No cardiomegaly. Mediastinum: Unremarkable. Bones/joints: Moderate degenerative changes of the right acromioclavicular joint. IMPRESSION: No acute process.
[2017-12-13 04:04] LABS: Troponin I <0.012 ng/mL (0.000-0.034)
[2017-12-13 04:08] LABS: Creatine Kinase MB 4.1 ng/mL (0.0-2.4)
[2017-12-13 06:59] VITALS: RESP 18
[2017-12-13 07:37] VITALS: TEMP 97.4
[2017-12-13 09:00] VITALS: BP 105/63; PULSE 77
--- NOTE | 2017-12-16 00:28 | CDI ---
Documentation Clarification OP Dear Glynn BLACK MD Please do addendum to ED report for MDM and clinical impression. Thank you, Nasra Pierre Assistant Clinical Nurse Manager If you have any question, Please contact physiotherapy practice manager at [phone] [facility]
== END 2017-12-13 09:05 | disposition home or self-care (01) ==
LOC: EC 02:52
DX: R07.9 Chest pain, unspecified (principal); J44.9 Chronic obstructive pulmonary disease, unspecified; I25.2 Old myocardial infarction; F20.9 Schizophrenia, unspecified; F31.9 Bipolar disorder, unspecified; F41.9 Anxiety disorder, unspecified; F17.200 Nicotine dependence, unspecified, uncomplicated; Z79.51 Long term (current) use of inhaled steroids; Z79.899 Other long term (current) drug therapy; Z91.013 Allergy to seafood; Z91.018 Allergy to other foods; Z91.030 Bee allergy status
CPT/HCPCS: 36415; 71046; 80053; 82550; 82553; 83735; 84484; 85025; 85610; 85730; 93005; 99285

== ENCOUNTER 2017-12-15 03:28 | Emergency (ER) | payer OTHER ==
[2017-12-15 03:47] VITALS: RESP 18
--- NOTE | 2017-12-15 04:11 | ED ---
General Adult HPI - General Chief complaint: Psychiatric Symptoms Stated complaint: Mental Health Time Seen by Provider: 12/15/17 03:35 Source: patient, RN notes reviewed, old records reviewed Mode of arrival: ambulatory Limitations: no limitations - History of Present Illness Initial comments: This is a 39-year-old male the ER for evaluation of psychiatric illness. Suicidal thoughts. Patient has been homeless for quite some time, disease of breaking point as was his son's birthday became very depressed patient states he does want to kill himself - Related Data Home Medications Medication Instructions Recorded Confirmed Albuterol Inhaler [Ventolin Hfa 1 - 2 puff INHALATION RT-Q6H PRN 08/07/17 Inhaler] Budesonide-Formot 160-4.5 Mcg 2 puff INHALATION RT-BID 08/07/17 12/13/17 [Symbicort 160-4.5 Mcg Inhaler] Divalproex Sodium [Depakote] 1,000 mg PO HS 08/07/17 12/13/17 QUEtiapine [SEROquel] 100 mg PO HS 08/07/17 12/13/17 Tiotropium [place] [Spiriva] 1 cap INHALATION RT-DAILY 08/07/17 12/13/17 Previous Rx's Medication Instructions Recorded Acetaminophen-Codeine 300-30mg 1 tab PO Q4H PRN #20 tablet 08/07/17 [Tylenol #3] Ibuprofen [Motrin] 600 mg PO Q8HR PRN #30 tab 08/07/17 Allergies Allergy/AdvReac Type Severity Reaction Status Date / Time horseradish Allergy Anaphylaxis Verified 12/15/17 03:47 shellfish derived [Shellfish] Allergy Anaphylaxis Verified 12/15/17 03:47 venom-wasp Allergy Anaphylaxis Verified 12/15/17 03:47 Review of Systems ROS Statement: Those systems with pertinent positive or pertinent negative responses have been documented in the HPI. ROS Other: All systems not noted in ROS Statement are negative. Past Medical History Past Medical History: COPD, CVA/TIA, Myocardial Infarction ([place]) Additional Past Medical History / Comment(s): cerebral aneurysm Last Myocardial Infarction Date:: History of Any Multi-Drug Resistant Organisms: None Reported Past Surgical History: Heart Catheterization Past Anesthesia/Blood Transfusion Reactions: Previous Problems w/ Anesthesia Additional Past Anesthesia/Blood Transfusion Reaction / Comment(s): Hard to wake up Past Psychological History: Anxiety, Bipolar, Depression, Schizophrenia Smoking Status: Current every day smoker Past Alcohol Use History: Occasional Past Drug Use History: Marijuana - Past Family History Mother Family Medical History: CVA/TIA Father Additional Family Medical History / Comment(s): Emphesema General Exam Limitations: no limitations General appearance: alert, in no apparent distress Head exam: Present: atraumatic, normocephalic, normal inspection Eye exam: Present: normal appearance, PERRL, EOMI. Absent: scleral icterus, conjunctival injection, periorbital swelling ENT exam: Present: normal exam, mucous membranes moist Neck exam: Present: normal inspection. Absent: tenderness, meningismus, lymphadenopathy Respiratory exam: Present: normal lung sounds bilaterally. Absent: respiratory distress, wheezes, rales, rhonchi, stridor Cardiovascular Exam: Present: regular rate, normal rhythm, normal heart sounds. Absent: systolic murmur, diastolic murmur, rubs, gallop, clicks GI/Abdominal exam: Present: soft, normal bowel sounds. Absent: distended, tenderness, guarding, rebound, rigid Extremities exam: Present: normal inspection, full ROM, normal capillary refill. Absent: tenderness, pedal edema, joint swelling, calf tenderness Back exam: Present: normal inspection Neurological exam: Present: alert, oriented X3, CN II-XII intact Psychiatric exam: Present: normal affect, normal mood Skin exam: Present: warm, dry, intact, normal color. Absent: rash Course Vital Signs 12/15/17 03:42 Temperature 97.0 F L Pulse Rate 81 Respiratory 18 Rate Blood Pressure 120/70 O2 Sat by Pulse 98 Oximetry - Reevaluation(s) Reevaluation #1: 12/15/17 04:11 Medically clear for psychiatric evaluation Medical Decision Making - Medical Decision Making 47 male seen evaluated with psychiatry, patient will be discharged home - Lab Data Lab Results 12/15/17 Range/Units 03:59 Urine Opiates Screen Not Detected (NotDetected) Ur Oxycodone Screen Not Detected (NotDetected) Urine Methadone Screen Not Detected (NotDetected) Ur Propoxyphene Screen Not Detected (NotDetected) Ur Barbiturates Screen Not Detected (NotDetected) U Tricyclic Antidepress Not Detected (NotDetected) Ur Phencyclidine Scrn Not Detected (NotDetected) Ur Amphetamines Screen Not Detected (NotDetected) U Methamphetamines Scrn Not Detected (NotDetected) U Benzodiazepines Scrn Not Detected (NotDetected) Urine Cocaine Screen Not Detected (NotDetected) U Marijuana (THC) Screen Detected H (NotDetected) Disposition Clinical Impression: Acute anxiety, Depression Disposition: HOME SELF-CARE Condition: Good Instructions: Depression (ED) Referrals: Flash Schofield MD [Primary Care Provider] - 1-2 days
[2017-12-15 04:33] LABS: Amphetamine Screen,Urine Not Detected (NotDetected); Barbiturate Screen,Urine Not Detected (NotDetected); Benzodiazepines Screen,Urine Not Detected (NotDetected); Cocaine Screen,Urine Not Detected (NotDetected); Methadone Screen, Urine Not Detected (NotDetected); Opiate Screen,Urine Not Detected (NotDetected); Oxycodone Screen, Urine Not Detected (NotDetected); Phencyclidine Screen,Urine Not Detected (NotDetected); Tricyclic Antidepressant,Urine Not Detected (NotDetected); Urn Cannabinoid Scrn Detected (NotDetected)
[2017-12-15 07:02] VITALS: BP 125/69; PULSE 86; TEMP 98.2
== END 2017-12-15 07:06 | disposition home or self-care (01) ==
LOC: EC 03:28
DX: F41.9 Anxiety disorder, unspecified (principal); R45.851 Suicidal ideations; J44.9 Chronic obstructive pulmonary disease, unspecified; I25.2 Old myocardial infarction; F20.9 Schizophrenia, unspecified; F31.9 Bipolar disorder, unspecified; F17.200 Nicotine dependence, unspecified, uncomplicated; Z79.51 Long term (current) use of inhaled steroids; Z79.899 Other long term (current) drug therapy; Z91.013 Allergy to seafood; Z91.030 Bee allergy status; Z91.018 Allergy to other foods
CPT/HCPCS: 80306; 82075; 99284

== ENCOUNTER 2017-12-16 22:58 | Emergency (ER) | payer OTHER ==
--- NOTE | 2017-12-16 23:20 | ED ---
General Adult HPI - General Chief complaint: Psychiatric Symptoms Stated complaint: Mental Health/Suicidal Time Seen by Provider: 12/16/17 23:19 Source: patient, RN notes reviewed, old records reviewed Mode of arrival: ambulatory Limitations: no limitations - History of Present Illness Initial comments: This is a 39-year-old male to the ER for evasive psychiatric evaluation. Patient's history of mental health. Denies drugs or alcohol currently. Patient states he wants to hurt himself or someone else. Patient - Related Data Home Medications Medication Instructions Recorded Confirmed Albuterol Inhaler [Ventolin Hfa 1 - 2 puff INHALATION RT-Q6H PRN 08/07/17 Inhaler] Budesonide-Formot 160-4.5 Mcg 2 puff INHALATION RT-BID 08/07/17 12/13/17 [Symbicort 160-4.5 Mcg Inhaler] Divalproex Sodium [Depakote] 1,000 mg PO HS 08/07/17 12/13/17 QUEtiapine [SEROquel] 100 mg PO HS 08/07/17 12/13/17 Tiotropium [place] [Spiriva] 1 cap INHALATION RT-DAILY 08/07/17 12/13/17 Previous Rx's Medication Instructions Recorded Acetaminophen-Codeine 300-30mg 1 tab PO Q4H PRN #20 tablet 08/07/17 [Tylenol #3] Ibuprofen [Motrin] 600 mg PO Q8HR PRN #30 tab 08/07/17 Allergies Allergy/AdvReac Type Severity Reaction Status Date / Time horseradish Allergy Anaphylaxis Verified 12/16/17 23:17 shellfish derived [Shellfish] Allergy Anaphylaxis Verified 12/16/17 23:17 venom-wasp Allergy Anaphylaxis Verified 12/16/17 23:17 Review of Systems ROS Statement: Those systems with pertinent positive or pertinent negative responses have been documented in the HPI. ROS Other: All systems not noted in ROS Statement are negative. Past Medical History Past Medical History: COPD, CVA/TIA, Myocardial Infarction ([place]) Additional Past Medical History / Comment(s): cerebral aneurysm Last Myocardial Infarction Date:: History of Any Multi-Drug Resistant Organisms: None Reported Past Surgical History: Heart Catheterization Past Anesthesia/Blood Transfusion Reactions: Previous Problems w/ Anesthesia Additional Past Anesthesia/Blood Transfusion Reaction / Comment(s): Hard to wake up Past Psychological History: Anxiety, Bipolar, Depression, Schizophrenia Smoking Status: Current every day smoker Past Alcohol Use History: Occasional Past Drug Use History: Marijuana - Past Family History Mother Family Medical History: CVA/TIA Father Additional Family Medical History / Comment(s): Emphesema General Exam Limitations: no limitations General appearance: alert, in no apparent distress Head exam: Present: atraumatic, normocephalic, normal inspection Eye exam: Present: normal appearance, PERRL, EOMI. Absent: scleral icterus, conjunctival injection, periorbital swelling ENT exam: Present: normal exam, mucous membranes moist Neck exam: Present: normal inspection. Absent: tenderness, meningismus, lymphadenopathy Respiratory exam: Present: normal lung sounds bilaterally. Absent: respiratory distress, wheezes, rales, rhonchi, stridor Cardiovascular Exam: Present: regular rate, normal rhythm, normal heart sounds. Absent: systolic murmur, diastolic murmur, rubs, gallop, clicks GI/Abdominal exam: Present: soft, normal bowel sounds. Absent: distended, tenderness, guarding, rebound, rigid Extremities exam: Present: normal inspection, full ROM, normal capillary refill. Absent: tenderness, pedal edema, joint swelling, calf tenderness Back exam: Present: normal inspection Neurological exam: Present: alert, oriented X3, CN II-XII intact Psychiatric exam: Present: normal affect, normal mood Skin exam: Present: warm, dry, intact, normal color. Absent: rash Course Vital Signs 12/16/17 23:14 Temperature 97.6 F Pulse Rate 92 Respiratory 18 Rate Blood Pressure 122/67 O2 Sat by Pulse 98 Oximetry - Reevaluation(s) Reevaluation #1: 12/16/17 23:20 Patient medically clear for psychiatric evaluation Medical Decision Making - Medical Decision Making 47 male to the ED for depression, seen and evaluated by psychdemetrio for discharge home. - Lab Data Lab Results 12/17/17 Range/Units 01:35 Urine Opiates Screen Not Detected (NotDetected) Ur Oxycodone Screen Not Detected (NotDetected) Urine Methadone Screen Not Detected (NotDetected) Ur Propoxyphene Screen Not Detected (NotDetected) Ur Barbiturates Screen Not Detected (NotDetected) U Tricyclic Antidepress Not Detected (NotDetected) Ur Phencyclidine Scrn Not Detected (NotDetected) Ur Amphetamines Screen Not Detected (NotDetected) U Methamphetamines Scrn Not Detected (NotDetected) U Benzodiazepines Scrn Not Detected (NotDetected) Urine Cocaine Screen Not Detected (NotDetected) U Marijuana (THC) Screen Detected H (NotDetected) Disposition Clinical Impression: Acute anxiety, Depression Disposition: HOME SELF-CARE Condition: Good Instructions: Depression (ED) Referrals: Flash Schofield MD [Primary Care Provider] - 1-2 days
[2017-12-17 01:59] LABS: Amphetamine Screen,Urine Not Detected (NotDetected); Barbiturate Screen,Urine Not Detected (NotDetected); Benzodiazepines Screen,Urine Not Detected (NotDetected); Cocaine Screen,Urine Not Detected (NotDetected); Methadone Screen, Urine Not Detected (NotDetected); Opiate Screen,Urine Not Detected (NotDetected); Oxycodone Screen, Urine Not Detected (NotDetected); Phencyclidine Screen,Urine Not Detected (NotDetected); Tricyclic Antidepressant,Urine Not Detected (NotDetected); Urn Cannabinoid Scrn Detected (NotDetected)
[2017-12-17 03:17] VITALS: BP 119/56; PULSE 79; RESP 16; TEMP 98.1
== END 2017-12-17 03:31 | disposition home or self-care (01) ==
LOC: EC 22:58
DX: F41.9 Anxiety disorder, unspecified (principal); F31.9 Bipolar disorder, unspecified; F20.9 Schizophrenia, unspecified; R45.851 Suicidal ideations; F17.200 Nicotine dependence, unspecified, uncomplicated; Z86.73 Personal history of transient ischemic attack (TIA), and cerebral infarction without residual deficits; Z79.51 Long term (current) use of inhaled steroids; Z79.899 Other long term (current) drug therapy; Z91.013 Allergy to seafood; Z91.018 Allergy to other foods; Z91.030 Bee allergy status
CPT/HCPCS: 80306; 82075; 99285

== ENCOUNTER 2018-01-04 02:05 | Emergency (ER) | payer SELFPAY ==
[2018-01-04] MEDS ORDERED: predniSONE 20 MG TAB PO STA (02:28)
--- NOTE | 2018-01-04 02:31 | ED ---
SOB HPI - General Chief Complaint: Shortness of Breath Stated Complaint: SOB Time Seen by Provider: 01/04/18 02:17 Source: patient Mode of arrival: ambulatory Limitations: no limitations - History of Present Illness Initial Comments: Years old male presents with a shortness of breath he does have a history of COPD and has been using his inhalers, he feels that may shortness of breath got aggravated today or walking in the cold. He stated his shortness of breath has gotten better since she came in denies any chest pain no pleuritic chest pain denies any fever no chills him a no abdominal pain no frequency urgency dysuria no symptoms of TIA or CVA - Related Data Home Medications Medication Instructions Recorded Confirmed Albuterol Inhaler [Ventolin Hfa 1 - 2 puff INHALATION RT-Q6H PRN 08/07/17 Inhaler] Budesonide-Formot 160-4.5 Mcg 2 puff INHALATION RT-BID 08/07/17 12/13/17 [Symbicort 160-4.5 Mcg Inhaler] Divalproex Sodium [Depakote] 1,000 mg PO HS 08/07/17 12/13/17 QUEtiapine [SEROquel] 100 mg PO HS 08/07/17 12/13/17 Tiotropium [place] [Spiriva] 1 cap INHALATION RT-DAILY 08/07/17 12/13/17 Previous Rx's Medication Instructions Recorded Acetaminophen-Codeine 300-30mg 1 tab PO Q4H PRN #20 tablet 08/07/17 [Tylenol #3] Ibuprofen [Motrin] 600 mg PO Q8HR PRN #30 tab 08/07/17 Levofloxacin [Levaquin] 500 mg PO DAILY #7 tab 01/04/18 predniSONE 50 mg PO DAILY #5 tablet 01/04/18 Allergies Allergy/AdvReac Type Severity Reaction Status Date / Time horseradish Allergy Anaphylaxis Verified 12/16/17 23:17 shellfish derived [Shellfish] Allergy Anaphylaxis Verified 12/16/17 23:17 venom-wasp Allergy Anaphylaxis Verified 12/16/17 23:17 Review of Systems ROS Statement: Those systems with pertinent positive or pertinent negative responses have been documented in the HPI. ROS Other: All systems not noted in ROS Statement are negative. Past Medical History Past Medical History: Asthma, COPD, CVA/TIA, Myocardial Infarction ([place]) Additional Past Medical History / Comment(s): cerebral aneurysm Last Myocardial Infarction Date:: History of Any Multi-Drug Resistant Organisms: None Reported Past Surgical History: Heart Catheterization Past Anesthesia/Blood Transfusion Reactions: Previous Problems w/ Anesthesia Additional Past Anesthesia/Blood Transfusion Reaction / Comment(s): Hard to wake up Past Psychological History: Anxiety, Bipolar, Depression, Schizophrenia Smoking Status: Current every day smoker Past Alcohol Use History: Occasional Past Drug Use History: Marijuana - Past Family History Mother Family Medical History: CVA/TIA Father Additional Family Medical History / Comment(s): Emphesema General Exam - General Exam Comments Initial Comments: General: The patient is awake and alert, in no distress, and does not appear acutely ill. Skin: Skin is warm and dry and no rashes or lesions are noted. Eye: Pupils are equal, round and reactive to light, extra-ocular movements are intact; there is normal conjunctiva bilaterally. Ears, nose, mouth and throat: There are moist mucous membranes and no oral lesions. Neck: The neck is supple, there is no tenderness or JVD. Cardiovascular: There is a regular rate and rhythm. No murmur, rub or gallop is appreciated. Respiratory: To auscultation bilateral, noticed moderate COPD Gastrointestinal: Soft, non-distended, non-tender abdomen without masses or organomegaly noted. There is no rebound or guarding present. Bowel sounds are unremarkable. Back: There is no tenderness to palpation in the midline. There is no obvious deformity. Musculoskeletal: Normal ROM, no tenderness, There is no pedal edema. There is no calf tenderness or swelling. No cords were appreciated. Neurological: CN II-XII intact, Cranial nerves III through XII are intact. There are no obvious motor or sensory deficits. Coordination appears grossly intact. Speech is normal. Psychiatric: Cooperative, appropriate mood & affect, normal judgment. Limitations: no limitations Course Vital Signs 01/04/18 02:08 Temperature 96.8 F L Pulse Rate 94 Respiratory 17 Rate Blood Pressure 120/76 O2 Sat by Pulse 100 Oximetry EKG is normal sinus rhythm ventricular rate is 71 MD interval is 1:30 QRS duration is 84 QT/QTC 396/4:30 review of this EKG does not reveal any ST elevation or ST depression Patient is reassessed at term 5 AM, white count is 12.5 troponin is negative EKG was unremarkable, compressive metabolic panel is unremarkable his O2 sat at room air was 100% chest x-ray there is a question of infiltrate/bronchitis patient be considering that he has a COPD and question of infiltrate he be gone home on Levaquin 500 milligrams by mouth daily for next 7 days and prednisone 50 mg by mouth daily for next 5 days Medical Decision Making - Lab Data Result diagrams: 01/04/18 03:10 01/04/18 03:10 Lab Results 01/04/18 01/04/18 01/04/18 Range/Units 03:10 03:10 03:10 WBC 12.5 H (3.8-10.6) k/uL RBC 4.55 (4.30-5.90) m/uL Hgb 13.4 (13.0-17.5) gm/dL Hct 40.3 (39.0-53.0) % MCV 88.6 (80.0-100.0) fL MCH 29.5 (25.0-35.0) pg MCHC 33.3 (31.0-37.0) g/dL RDW 13.3 (11.5-15.5) % Plt Count 388 (150-450) k/uL Neutrophils % 73 % Lymphocytes % 16 % Monocytes % 6 % Eosinophils % 3 % Basophils % 1 % Neutrophils # 9.1 H (1.3-7.7) k/uL Lymphocytes # 2.0 (1.0-4.8) k/uL Monocytes # 0.8 (0-1.0) k/uL Eosinophils # 0.3 (0-0.7) k/uL Basophils # 0.1 (0-0.2) k/uL PT (9.0-12.0) sec INR (<1.2) APTT (22.0-30.0) sec Sodium 141 (137-145) mmol/L Potassium 4.1 (3.5-5.1) mmol/L Chloride 104 (98-107) mmol/L Carbon Dioxide 27 (22-30) mmol/L Anion Gap 10 mmol/L BUN 16 (9-20) mg/dL Creatinine 0.77 (0.66-1.25) mg/dL Est GFR (CKD-EPI)AfAm >90 (>60 ml/min/1.73 sqM) Est GFR (CKD-EPI)NonAf >90 (>60 ml/min/1.73 sqM) Glucose 93 (74-99) mg/dL Calcium 9.7 (8.4-10.2) mg/dL Total Bilirubin 0.3 (0.2-1.3) mg/dL AST 19 (17-59) U/L ALT 25 (21-72) U/L Alkaline Phosphatase 125 (38-126) U/L Total Creatine Kinase 120 (55-170) U/L CK-MB (CK-2) 3.2 H* (0.0-2.4) ng/mL CK-MB (CK-2) Rel Index 2.7 Troponin I <0.012 (0.000-0.034) ng/mL Total Protein 6.4 (6.3-8.2) g/dL Albumin 4.0 (3.5-5.0) g/dL 01/04/18 Range/Units 03:10 WBC (3.8-10.6) k/uL RBC (4.30-5.90) m/uL Hgb (13.0-17.5) gm/dL Hct (39.0-53.0) % MCV (80.0-100.0) fL MCH (25.0-35.0) pg MCHC (31.0-37.0) g/dL RDW (11.5-15.5) % Plt Count (150-450) k/uL Neutrophils % % Lymphocytes % % Monocytes % % Eosinophils % % Basophils % % Neutrophils # (1.3-7.7) k/uL Lymphocytes # (1.0-4.8) k/uL Monocytes # (0-1.0) k/uL Eosinophils # (0-0.7) k/uL Basophils # (0-0.2) k/uL PT 9.7 (9.0-12.0) sec INR 1.0 (<1.2) APTT 23.6 (22.0-30.0) sec Sodium (137-145) mmol/L Potassium (3.5-5.1) mmol/L Chloride (98-107) mmol/L Carbon Dioxide (22-30) mmol/L Anion Gap mmol/L BUN (9-20) mg/dL Creatinine (0.66-1.25) mg/dL Est GFR (CKD-EPI)AfAm (>60 ml/min/1.73 sqM) Est GFR (CKD-EPI)NonAf (>60 ml/min/1.73 sqM) Glucose (74-99) mg/dL Calcium (8.4-10.2) mg/dL Total Bilirubin (0.2-1.3) mg/dL AST (17-59) U/L ALT (21-72) U/L Alkaline Phosphatase (38-126) U/L Total Creatine Kinase (55-170) U/L CK-MB (CK-2) (0.0-2.4) ng/mL CK-MB (CK-2) Rel Index Troponin I (0.000-0.034) ng/mL Total Protein (6.3-8.2) g/dL Albumin (3.5-5.0) g/dL Disposition Clinical Impression: Pneumonia Disposition: HOME SELF-CARE Condition: Good Instructions: Acute Bronchitis (ED) Prescriptions: Levofloxacin [Levaquin] 500 mg PO DAILY #7 tab predniSONE 50 mg PO DAILY #5 tablet Referrals: Flash Schofield MD [Primary Care Provider] - 1-2 days
[2018-01-04 03:34] LABS: Basophils # (A) 0.1 k/uL (0-0.2); Basophils % (A) 1 %; Eosinophils # (A) 0.3 k/uL (0-0.7); Eosinophils % (A) 3 %; HCT 40.3 % (39.0-53.0); HGB 13.4 gm/dL (13.0-17.5); Lymphocytes % (A) 16 %; MCH 29.5 pg (25.0-35.0); MCHC 33.3 g/dL (31.0-37.0); MCV 88.6 fL (80.0-100.0); Mean Platelet Volume 6.9; Monocytes # (A) 0.8 k/uL (0-1.0); Monocytes % (A) 6 %; Neutrophils # (A) 9.1 k/uL (1.3-7.7); Neutrophils % (A) 73 %; Platelet Count 388 k/uL (150-450); RBC 4.55 m/uL (4.30-5.90); RDW 13.3 % (11.5-15.5); WBC 12.5 k/uL (3.8-10.6)
[2018-01-04 03:43] LABS: ALT 25 U/L (21-72); AST 19 U/L (17-59); Alkaline Phosphatase 125 U/L (38-126); Anion Gap 10 mmol/L; Blood Urea Nitrogen 16 mg/dL (9-20); Calcium 9.7 mg/dL (8.4-10.2); Carbon Dioxide 27 mmol/L (22-30); Chloride 104 mmol/L (98-107); Glucose 93 mg/dL (74-99); Potassium 4.1 mmol/L (3.5-5.1); Sodium 141 mmol/L (137-145); Total Bilirubin 0.3 mg/dL (0.2-1.3); Total Protein 6.4 g/dL (6.3-8.2)
[2018-01-04 03:55] LABS: Partial Thromboplastin Time 23.6 sec (22.0-30.0); Prothrombin Time 9.7 sec (9.0-12.0)
[2018-01-04 03:56] LABS: Creatine Kinase 120 U/L (55-170)
[2018-01-04 04:09] LABS: Troponin I <0.012 ng/mL (0.000-0.034)
[2018-01-04 04:10] LABS: Creatine Kinase MB 3.2 ng/mL (0.0-2.4)
--- NOTE | 2018-01-04 04:17 | XR ---
EXAM: XR Chest, 2 Views CLINICAL HISTORY: ITS.REASON XR Reason: difficulty breathing TECHNIQUE: Frontal and lateral views of the chest. COMPARISON: 12/13/2017 FINDINGS: Lungs: Mild central interstitial prominence with apparent peribronchial thickening. No focal consolidation. Pleural space: No definitive evidence for pneumothorax or pleural effusion. Heart: Unremarkable. No cardiomegaly. Mediastinum: Unremarkable. Bones/joints: Unremarkable. Vasculature: Mild atherosclerosis. IMPRESSION: 1. Interstitial prominence and peribronchial infiltrates. Query bronchiolitis.
[2018-01-04] MEDS ORDERED: LEVOFLOXACIN 500 MG TAB PO STA (04:23)
[2018-01-04 04:35] VITALS: BP 103/59; PULSE 79; RESP 20; TEMP 97.3
== END 2018-01-04 04:41 | disposition home or self-care (01) ==
LOC: EC 02:05
DX: J18.9 Pneumonia, unspecified organism (principal); J44.9 Chronic obstructive pulmonary disease, unspecified; F20.9 Schizophrenia, unspecified; F31.9 Bipolar disorder, unspecified; F41.9 Anxiety disorder, unspecified; F17.200 Nicotine dependence, unspecified, uncomplicated; Z79.51 Long term (current) use of inhaled steroids; Z79.899 Other long term (current) drug therapy; Z91.013 Allergy to seafood; Z91.018 Allergy to other foods; Z91.030 Bee allergy status
CPT/HCPCS: 36415; 93005; 80053; 82550; 82553; 84484; 85025; 85610; 85730; 71046; 99285; J7512

== ENCOUNTER 2018-01-09 01:38 | Emergency (ER) | payer SELFPAY ==
--- NOTE | 2018-01-09 01:55 | ED ---
General Adult HPI - General Chief complaint: Chest Pain Stated complaint: cough Time Seen by Provider: 01/09/18 01:52 Source: patient, EMS, RN notes reviewed, old records reviewed Mode of arrival: EMS Limitations: no limitations - History of Present Illness Initial comments: 47-year-old male presents for evaluation of left-sided chest pain. Patient's pain is sharp in nature. He's had this pain for some time, worse over the past 30 minutes. Patient was recently evaluated in the emergency department at an outside hospital and diagnosed with bronchitis. He is a current smoker and states he has been coughing. No history of fever or chills. Cough is mostly nonproductive. No diaphoresis. No nausea or vomiting. Patient is homeless and 's believes that his pain may be related to stress. No history of coronary artery disease known. Patient denies any left arm pain or shoulder pain. No jaw pain. Pain comes and goes, lasts just seconds. No significant dyspnea. - Related Data Home Medications Medication Instructions Recorded Confirmed Albuterol Inhaler [Ventolin Hfa 1 - 2 puff INHALATION RT-Q6H PRN 08/07/17 Inhaler] Budesonide-Formot 160-4.5 Mcg 2 puff INHALATION RT-BID 08/07/17 12/13/17 [Symbicort 160-4.5 Mcg Inhaler] Divalproex Sodium [Depakote] 1,000 mg PO HS 08/07/17 12/13/17 QUEtiapine [SEROquel] 100 mg PO HS 08/07/17 12/13/17 Tiotropium [place] [Spiriva] 1 cap INHALATION RT-DAILY 08/07/17 12/13/17 Previous Rx's Medication Instructions Recorded Acetaminophen-Codeine 300-30mg 1 tab PO Q4H PRN #20 tablet 08/07/17 [Tylenol #3] Ibuprofen [Motrin] 600 mg PO Q8HR PRN #30 tab 08/07/17 Levofloxacin [Levaquin] 500 mg PO DAILY #7 tab 01/04/18 predniSONE 50 mg PO DAILY #5 tablet 01/04/18 Allergies Allergy/AdvReac Type Severity Reaction Status Date / Time horseradish Allergy Anaphylaxis Verified 12/16/17 23:17 shellfish derived [Shellfish] Allergy Anaphylaxis Verified 12/16/17 23:17 venom-wasp Allergy Anaphylaxis Verified 12/16/17 23:17 Review of Systems ROS Statement: Those systems with pertinent positive or pertinent negative responses have been documented in the HPI. ROS Other: All systems not noted in ROS Statement are negative. Past Medical History Past Medical History: Asthma, COPD, CVA/TIA, Myocardial Infarction ([place]) Additional Past Medical History / Comment(s): cerebral aneurysm Last Myocardial Infarction Date:: History of Any Multi-Drug Resistant Organisms: None Reported Past Surgical History: Heart Catheterization Past Anesthesia/Blood Transfusion Reactions: Previous Problems w/ Anesthesia Additional Past Anesthesia/Blood Transfusion Reaction / Comment(s): Hard to wake up Past Psychological History: Anxiety, Bipolar, Depression, Schizophrenia Smoking Status: Current every day smoker Past Alcohol Use History: Occasional Past Drug Use History: Marijuana - Past Family History Mother Family Medical History: CVA/TIA Father Additional Family Medical History / Comment(s): Emphesema General Exam Limitations: no limitations General appearance: alert, in no apparent distress Head exam: Present: atraumatic, normocephalic Eye exam: Present: normal appearance, PERRL, EOMI ENT exam: Present: normal exam Neck exam: Present: normal inspection. Absent: tenderness, meningismus Respiratory exam: Present: normal lung sounds bilaterally. Absent: respiratory distress, wheezes Cardiovascular Exam: Present: regular rate, normal rhythm GI/Abdominal exam: Present: soft. Absent: distended, tenderness, guarding Extremities exam: Present: normal inspection, normal capillary refill. Absent: pedal edema Neurological exam: Present: alert, oriented X3, CN II-XII intact Psychiatric exam: Present: normal affect, normal mood Skin exam: Present: warm, dry, intact. Absent: cyanosis, diaphoretic Course Vital Signs 01/09/18 01/09/18 01/09/18 01:46 02:10 03:32 Temperature 98.1 F Pulse Rate 75 71 Respiratory 17 20 16 Rate Blood Pressure 119/69 107/57 O2 Sat by Pulse 100 97 Oximetry 01/09/18 01/09/18 04:40 05:30 Temperature Pulse Rate 62 65 Respiratory 20 18 Rate Blood Pressure 96/55 104/66 O2 Sat by Pulse 96 96 Oximetry EKG Findings - EKG Comments: EKG Findings:: EKG normal sinus rhythm, ventricular rate 66, OH interval 162, QRS duration 80, QTC 408, no ST segment elevation no significant change compared to previous EKG obtained January 04 Medical Decision Making - Medical Decision Making 47-year-old male presenting with left lateral chest pain. Pain is atypical for coronary artery disease. Patient has been diagnosed with bronchitis and is currently receiving treatment for this. EKG negative for acute signs of ischemia. Patient's pain began to arrival, initial troponin is negative. Other laboratory studies are unremarkable. Chest x-ray is clear, no focal pneumonia. 3 are troponin is obtained, this is negative. Patient will be discharged home, should return with any worsening or changing symptoms, follow- up with primary care physician. - Lab Data Result diagrams: 01/09/18 02:20 01/09/18 02:20 Lab Results 01/09/18 01/09/18 01/09/18 Range/Units 02:20 02:20 02:20 WBC 12.2 H (3.8-10.6) k/uL RBC 4.40 (4.30-5.90) m/uL Hgb 12.6 L (13.0-17.5) gm/dL Hct 39.2 (39.0-53.0) % MCV 89.2 (80.0-100.0) fL MCH 28.6 (25.0-35.0) pg MCHC 32.1 (31.0-37.0) g/dL RDW 13.5 (11.5-15.5) % Plt Count 371 (150-450) k/uL Neutrophils % 67 % Lymphocytes % 22 % Monocytes % 5 % Eosinophils % 3 % Basophils % 1 % Neutrophils # 8.2 H (1.3-7.7) k/uL Lymphocytes # 2.7 (1.0-4.8) k/uL Monocytes # 0.6 (0-1.0) k/uL Eosinophils # 0.4 (0-0.7) k/uL Basophils # 0.1 (0-0.2) k/uL PT (9.0-12.0) sec INR (<1.2) APTT (22.0-30.0) sec Sodium 138 (137-145) mmol/L Potassium 3.9 (3.5-5.1) mmol/L Chloride 105 (98-107) mmol/L Carbon Dioxide 23 (22-30) mmol/L Anion Gap 10 mmol/L BUN 15 (9-20) mg/dL Creatinine 0.90 (0.66-1.25) mg/dL Est GFR (CKD-EPI)AfAm >90 (>60 ml/min/1.73 sqM) Est GFR (CKD-EPI)NonAf >90 (>60 ml/min/1.73 sqM) Glucose 99 (74-99) mg/dL Calcium 9.4 (8.4-10.2) mg/dL Magnesium 1.9 (1.6-2.3) mg/dL Total Bilirubin 0.2 (0.2-1.3) mg/dL AST 20 (17-59) U/L ALT 18 L (21-72) U/L Alkaline Phosphatase 110 (38-126) U/L Total Creatine Kinase 138 (55-170) U/L CK-MB (CK-2) 4.3 H* (0.0-2.4) ng/mL CK-MB (CK-2) Rel Index 3.1 Troponin I <0.012 (0.000-0.034) ng/mL Total Protein 6.4 (6.3-8.2) g/dL Albumin 4.0 (3.5-5.0) g/dL 01/09/18 01/09/18 Range/Units 02:20 05:15 WBC (3.8-10.6) k/uL RBC (4.30-5.90) m/uL Hgb (13.0-17.5) gm/dL Hct (39.0-53.0) % MCV (80.0-100.0) fL MCH (25.0-35.0) pg MCHC (31.0-37.0) g/dL RDW (11.5-15.5) % Plt Count (150-450) k/uL Neutrophils % % Lymphocytes % % Monocytes % % Eosinophils % % Basophils % % Neutrophils # (1.3-7.7) k/uL Lymphocytes # (1.0-4.8) k/uL Monocytes # (0-1.0) k/uL Eosinophils # (0-0.7) k/uL Basophils # (0-0.2) k/uL PT 9.8 (9.0-12.0) sec INR 1.0 (<1.2) APTT 23.9 (22.0-30.0) sec Sodium (137-145) mmol/L Potassium (3.5-5.1) mmol/L Chloride (98-107) mmol/L Carbon Dioxide (22-30) mmol/L Anion Gap mmol/L BUN (9-20) mg/dL Creatinine (0.66-1.25) mg/dL Est GFR (CKD-EPI)AfAm (>60 ml/min/1.73 sqM) Est GFR (CKD-EPI)NonAf (>60 ml/min/1.73 sqM) Glucose (74-99) mg/dL Calcium (8.4-10.2) mg/dL Magnesium (1.6-2.3) mg/dL Total Bilirubin (0.2-1.3) mg/dL AST (17-59) U/L ALT (21-72) U/L Alkaline Phosphatase (38-126) U/L Total Creatine Kinase 171 H (55-170) U/L CK-MB (CK-2) 4.1 H* (0.0-2.4) ng/mL CK-MB (CK-2) Rel Index 2.4 Troponin I 0.012 (0.000-0.034) ng/mL Total Protein (6.3-8.2) g/dL Albumin (3.5-5.0) g/dL Disposition Clinical Impression: Acute bronchitis, Chest pain Disposition: HOME SELF-CARE Condition: Good Instructions: Chest Pain (ED) Referrals: Flash Schofield MD [Primary Care Provider] - 1-2 days Time of Disposition: 06:18
--- NOTE | 2018-01-09 02:19 | XR ---
EXAMINATION TYPE: XR chest 2V DATE OF EXAM: 01/09/2018 COMPARISON: 01/04/2018 HISTORY: Chest pain TECHNIQUE: Frontal and lateral views of the chest are obtained. FINDINGS: Heart and mediastinum are normal. Lungs are clear. Diaphragm is normal. Bony thorax is int act. IMPRESSION: No active cardiopulmonary disease. No change.
[2018-01-09 02:36] LABS: Basophils # (A) 0.1 k/uL (0-0.2); Basophils % (A) 1 %; Eosinophils # (A) 0.4 k/uL (0-0.7); Eosinophils % (A) 3 %; HCT 39.2 % (39.0-53.0); HGB 12.6 gm/dL (13.0-17.5); Lymphocytes # (A) 2.7 k/uL (1.0-4.8); Lymphocytes % (A) 22 %; MCH 28.6 pg (25.0-35.0); MCHC 32.1 g/dL (31.0-37.0); MCV 89.2 fL (80.0-100.0); Mean Platelet Volume 6.9; Monocytes # (A) 0.6 k/uL (0-1.0); Monocytes % (A) 5 %; Neutrophils # (A) 8.2 k/uL (1.3-7.7); Neutrophils % (A) 67 %; Platelet Count 371 k/uL (150-450); RDW 13.5 % (11.5-15.5); WBC 12.2 k/uL (3.8-10.6)
[2018-01-09 02:44] LABS: Partial Thromboplastin Time 23.9 sec (22.0-30.0); Prothrombin Time 9.8 sec (9.0-12.0)
[2018-01-09 02:51] LABS: ALT 18 U/L (21-72); AST 20 U/L (17-59); Alkaline Phosphatase 110 U/L (38-126); Anion Gap 10 mmol/L; Blood Urea Nitrogen 15 mg/dL (9-20); Calcium 9.4 mg/dL (8.4-10.2); Carbon Dioxide 23 mmol/L (22-30); Chloride 105 mmol/L (98-107); Glucose 99 mg/dL (74-99); Magnesium 1.9 mg/dL (1.6-2.3); Potassium 3.9 mmol/L (3.5-5.1); Sodium 138 mmol/L (137-145); Total Bilirubin 0.2 mg/dL (0.2-1.3); Total Protein 6.4 g/dL (6.3-8.2)
[2018-01-09 02:55] LABS: Creatine Kinase 138 U/L (55-170)
[2018-01-09 03:07] LABS: Troponin I <0.012 ng/mL (0.000-0.034)
[2018-01-09 03:12] LABS: Creatine Kinase MB 4.3 ng/mL (0.0-2.4)
[2018-01-09] MEDS ORDERED: ASPIRIN 325 MG TAB PO STA (03:13)
[2018-01-09 05:57] VITALS: RESP 18
[2018-01-09 06:04] LABS: Troponin I 0.012 ng/mL (0.000-0.034)
[2018-01-09 06:07] LABS: Creatine Kinase MB 4.1 ng/mL (0.0-2.4)
[2018-01-09 06:32] VITALS: BP 108/60; PULSE 67; TEMP 98.2
== END 2018-01-09 06:31 | disposition home or self-care (01) ==
LOC: EC 01:38
DX: J20.9 Acute bronchitis, unspecified (principal); J44.0 Chronic obstructive pulmonary disease with (acute) lower respiratory infection; F20.9 Schizophrenia, unspecified; F31.9 Bipolar disorder, unspecified; F17.200 Nicotine dependence, unspecified, uncomplicated; Z79.51 Long term (current) use of inhaled steroids; Z79.899 Other long term (current) drug therapy; Z91.013 Allergy to seafood; Z91.018 Allergy to other foods; Z91.030 Bee allergy status; Z82.5 Family history of asthma and other chronic lower respiratory diseases; Z59.0 Homelessness; Z95.9 Presence of cardiac and vascular implant and graft, unspecified
CPT/HCPCS: 36415; 71046; 80053; 82550; 82553; 83735; 84484; 85025; 85610; 85730; 93005; 99285

== ENCOUNTER 2018-01-11 22:11 | Inpatient (IN) | payer OTHER ==
--- NOTE | 2018-01-11 22:44 | ED ---
Psych HPI - General Chief Complaint: Psychiatric Symptoms Stated Complaint: mental health Time Seen by Provider: 01/11/18 22:27 Source: patient Mode of arrival: ambulatory - History of Present Illness Initial Comments: This is a 47-year-old homeless male who presents emergency department for suicidal thoughts. He states that he "is having stupid thoughts". He states that he "wants to walk in front of traffic". He states that these thoughts have been bothering him because he is homeless and needs tired of being homeless and can't stand it anymore. He denies any attempted suicide. No homicidal ideation. Has no physical complaints. Denies any drug use or drinking - Related Data Home Medications Medication Instructions Recorded Confirmed No Known Home Medications [No 01/11/18 01/11/18 Known Home Medications] Allergies Allergy/AdvReac Type Severity Reaction Status Date / Time horseradish Allergy Anaphylaxis Verified 01/11/18 22:50 shellfish derived [Shellfish] Allergy Anaphylaxis Verified 01/11/18 22:50 venom-wasp Allergy Anaphylaxis Verified 01/11/18 22:50 Review of Systems ROS Statement: Those systems with pertinent positive or pertinent negative responses have been documented in the HPI. ROS Other: All systems not noted in ROS Statement are negative. Past Medical History Past Medical History: Asthma, COPD, CVA/TIA, Myocardial Infarction ([place]) Additional Past Medical History / Comment(s): cerebral aneurysm Last Myocardial Infarction Date:: History of Any Multi-Drug Resistant Organisms: None Reported Past Surgical History: Heart Catheterization Past Anesthesia/Blood Transfusion Reactions: Previous Problems w/ Anesthesia Additional Past Anesthesia/Blood Transfusion Reaction / Comment(s): Hard to wake up Past Psychological History: Anxiety, Bipolar, Depression, Schizophrenia Smoking Status: Current every day smoker Past Alcohol Use History: Occasional Past Drug Use History: Marijuana - Past Family History Mother Family Medical History: CVA/TIA Father Additional Family Medical History / Comment(s): Emphesema General Exam - General Exam Comments Initial Comments: Constitutional: Awake alert Appears comfortable Head: Normocephalic atraumatic Eyes: no conjunctival injection No scleral icterus EOMI Neck: No JVD Supple Heart: Regular rate rhythm normal S1-S2 no murmurs Lungs: Clear to auscultation bilaterally No wheezing No rales Abdomen: Soft nondistended nontender Extremities: Non edematous DP pulses intact Radial pulses intact Neuro: A&Ox3 No focal neurologic deficits Psych: Suicidal ideation with depression Limitations: no limitations Course Vital Signs 01/11/18 22:14 Temperature 97.6 F Pulse Rate 84 Respiratory 18 Rate Blood Pressure 132/82 O2 Sat by Pulse 97 Oximetry Medical Decision Making - Medical Decision Making This is a 47-year-old male who came in for suicidal ideation. The patient was evaluated by EPS and will be admitted for inpatient therapy. EPS to place further orders. - Lab Data Lab Results 01/11/18 Range/Units 22:50 Urine Opiates Screen Not Detected (NotDetected) Ur Oxycodone Screen Not Detected (NotDetected) Urine Methadone Screen Not Detected (NotDetected) Ur Propoxyphene Screen Not Detected (NotDetected) Ur Barbiturates Screen Not Detected (NotDetected) U Tricyclic Antidepress Not Detected (NotDetected) Ur Phencyclidine Scrn Not Detected (NotDetected) Ur Amphetamines Screen Not Detected (NotDetected) U Methamphetamines Scrn Not Detected (NotDetected) U Benzodiazepines Scrn Not Detected (NotDetected) Urine Cocaine Screen Not Detected (NotDetected) U Marijuana (THC) Screen Detected H (NotDetected) Disposition Clinical Impression: Suicidal ideation Disposition: ADMITTED IP TO THIS HOSP Condition: Stable
[2018-01-11 23:15] LABS: Amphetamine Screen,Urine Not Detected (NotDetected); Barbiturate Screen,Urine Not Detected (NotDetected); Benzodiazepines Screen,Urine Not Detected (NotDetected); Cocaine Screen,Urine Not Detected (NotDetected); Methadone Screen, Urine Not Detected (NotDetected); Opiate Screen,Urine Not Detected (NotDetected); Oxycodone Screen, Urine Not Detected (NotDetected); Phencyclidine Screen,Urine Not Detected (NotDetected); Tricyclic Antidepressant,Urine Not Detected (NotDetected); Urn Cannabinoid Scrn Detected (NotDetected)
[2018-01-12 02:52] VITALS: BMI 19.3
[2018-01-12] MEDS ORDERED: LORazepam 1 MG TAB PO PRN (03:56)
[2018-01-12] MEDS ORDERED: ZIPRASIDONE 20 MG VIAL IM PRN (03:56)
[2018-01-12] MEDS ORDERED: ACETAMINOPHEN TAB 325 MG TAB PO PRN (03:56)
[2018-01-12] MEDS ORDERED: MAGNESIUM HYDROXIDE 2,400 MG/10 ML CUP PO PRN (03:56)
[2018-01-12] MEDS ORDERED: MAG HYDROX/AL HYDROX/SIMETH 30 ML CUP PO PRN (03:56)
[2018-01-12 04:04] LABS: Appearance,Urine Clear (Clear); Bilirubin,Urine Negative (Negative); Blood,Urine Negative (Negative); Color,Urine Colorless; Glucose,Urine (UA) Negative (Negative); Ketones,Urine Negative (Negative); Leukocyte Esterase,Urine Negative (Negative); Nitrite,Urine Negative (Negative); Protein,Urine Negative (Negative); Specific Gravity,Urine 1.003 (1.001-1.035); Urobilinogen,Urine <2.0 mg/dL (<2.0)
[2018-01-12] MEDS: NICOTINE 7MG/24HR PATCH TRANSDERM SCH (08:32)
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
[2018-01-12] MEDS: ESCITALOPRAM 10 MG TAB PO SCH (11:49)
[2018-01-13 08:11] LABS: Basophils # (A) 0.1 k/uL (0-0.2); Basophils % (A) 1 %; Eosinophils # (A) 0.4 k/uL (0-0.7); Eosinophils % (A) 4 %; HGB 14.2 gm/dL (13.0-17.5); Lymphocytes # (A) 2.5 k/uL (1.0-4.8); Lymphocytes % (A) 28 %; MCH 29.4 pg (25.0-35.0); MCHC 33.1 g/dL (31.0-37.0); MCV 88.7 fL (80.0-100.0); Mean Platelet Volume 6.5; Monocytes # (A) 0.5 k/uL (0-1.0); Monocytes % (A) 6 %; Neutrophils # (A) 5.2 k/uL (1.3-7.7); Neutrophils % (A) 58 %; Platelet Count 398 k/uL (150-450); RBC 4.85 m/uL (4.30-5.90); RDW 12.9 % (11.5-15.5); WBC 8.9 k/uL (3.8-10.6)
--- NOTE | 2018-01-13 08:20 | CONS ---
CONSULTATION CHIEF COMPLAINT: Major depression and suicidal thoughts. HISTORY OF PRESENT ILLNESS: This gentleman brought himself to the emergency room and he became profoundly depressed and suicidal. He has legal issues, which are a prime factor. He is also homeless. REVIEW OF SYSTEMS: He has had no headaches, change in vision or the hearing, cough, shortness of breath, chest pain, history of heart disease, hypertension, abdominal pain, nausea, vomiting, hematemesis, melena, hematochezia, ulcer disease, colon disease, gallbladder disease, pancreatitis, etc. He has had no renal failure, history of stones, dysuria, frequency, urgency, hematuria, nocturia, arthritis, or diabetes. Past medical history is also unremarkable and noncontributory. He is not on any medication and he is not allergic to any. He has had no surgery. He does not drink alcohol. His smokes 1-1/2 packs of cigarettes a day. PHYSICAL EXAMINATION: Blood pressure is 140/76 with a pulse of 89, respirations 26 and he is afebrile. GENERAL: He appeared to be slender and in no acute distress. Skin color is normal. Skin is warm and dry. Lymph nodes are not enlarged. Head, ears, eyes, nose, mouth, and throat were normal. Neck veins not distended. Thyroid is not enlarged. Chest is clear. There are no rales or rhonchi. Cardiac exam is normal sinus rhythm. The abdomen is soft, flat. Extremities are normal. Neurologically, he is intact. IMPRESSION: 1. Major depression. 2. Suicidal thoughts. 3. Chronic obstructive pulmonary disease. RECOMMENDATIONS: None. MMODL / IJN: [id number] /
[2018-01-13 08:25] LABS: ALT 21 U/L (21-72); AST 20 U/L (17-59); Alkaline Phosphatase 117 U/L (38-126); Anion Gap 10 mmol/L; Blood Urea Nitrogen 17 mg/dL (9-20); Calcium 9.8 mg/dL (8.4-10.2); Carbon Dioxide 29 mmol/L (22-30); Chloride 103 mmol/L (98-107); Cholesterol 245 mg/dL (<200); Glucose 86 mg/dL (74-99); HDL Cholesterol 51 mg/dL (40-60); LDL Cholesterol,Calculated 163 mg/dL (0-99); Potassium 5.3 mmol/L (3.5-5.1); Sodium 142 mmol/L (137-145); Total Bilirubin 0.4 mg/dL (0.2-1.3); Total Protein 6.6 g/dL (6.3-8.2); Triglycerides 154 mg/dL (<150)
[2018-01-13] MEDS: NICOTINE 7MG/24HR PATCH TRANSDERM SCH (08:54)
[2018-01-13] MEDS: ESCITALOPRAM 10 MG TAB PO SCH (08:55)
--- NOTE | 2018-01-13 09:42 | P.PN ---
Progress Note - Text Interval history: The patient is found in his room he follows me to an interview room. He reports he was able to sleep last night staff recorded about 6 hours. Appetite stable. He states he attended some groups yesterday afternoon. We discussed the importance of having him attend all groups during the day. We have initiated Lexapro he has no questions or concerns regarding that medication. He does worry as to where he will stay upon discharge. He is also aware that he has a court date scheduled for Tuesday. Mental status exam: The patient is a thin male appearing older than his stated age. Hygiene is improved it appears he has showered. He is dressed casually in a T-shirt and jeans. Eye contact is appropriate. He has little spontaneous speech but he does provide answers to questions asked although brief. He reports feeling safe here in the hospital. He is endorsing no acute suicidal thoughts here. He is endorsing no homicidal ideation. No report or evidence of hallucinations or specific delusions. Thought process is linear with brief answers. He demonstrates no tangential thinking loose associations or flight of ideas. He demonstrates no abnormal involuntary movements. He demonstrates no verbal or physical aggressiveness. His affect is quite blunted. He demonstrates little reactivity in terms of affect. He is oriented to person place and date. He continues to harbor hopelessness thinking due to his homelessness and lack of social support. Plan: The patient's will continue on the Lexapro is written. We will monitor him for safety and encourage his full participation in the milieu. Vital signs reviewed. Labs are reviewed he did have some abnormalities with his lipid profile and his potassium. We will recheck the potassium tomorrow. We will continue to monitor him for safety.
[2018-01-13 18:40] LABS: Hemoglobin A1C 5.5 % (4.0-6.0)
[2018-01-14] MEDS: NICOTINE 7MG/24HR PATCH TRANSDERM SCH (09:05)
[2018-01-14] MEDS: ESCITALOPRAM 10 MG TAB PO SCH (09:06)
--- NOTE | 2018-01-14 12:56 | P.PN ---
Progress Note - Text Progress Note Date: 01/14/18 I'm seeing this patient for Dr. Ross for a follow-up examination. Patient says he is doing better on Lexapro. His mood is better, and does not have any suicide thoughts etc. He is on sex offender list, has a court hearing next week since he did not register as a sex offender. He is trying to get his SSI back which was stopped when [facility] [place] [facility] [place]. Apparently he was [facility] [place]2 years. He denies any adverse effects from Lexapro. This is a white ambulatory male with bushy morales and is missing front upper teeth. He is polite and cooperative. He does not show any psychomotor agitation or retardation. His speech is fairly spontaneous relevant and goal- directed. His mood is anxious and affect is increased in intensity. He denies suicidal and homicidal ideas. He denies hallucinations and delusional thinking. He is well oriented with good memory concentration etc. Plan: Continue Lexapro 10 mg a day, groups and other therapies.
[2018-01-15] MEDS: NICOTINE 7MG/24HR PATCH TRANSDERM SCH (08:10)
[2018-01-15] MEDS: ESCITALOPRAM 10 MG TAB PO SCH (08:11)
--- NOTE | 2018-01-15 15:19 | P.PN ---
Progress Note - Text Progress Note Date: 01/15/18 Patient was seen for a routine follow-up examination. He feels more relaxed cheerful and better today. Apparently the medical social worker had told them that [facility]. He does not have any particular new complaints or concerns. He takes his medications and attends his groups. This is a white ambulatory male with adequate hygiene. He does not show any psychomotor agitation or retardation. His speech is spontaneous relevant and goal-directed. His mood is cheerful and affect is appropriate to the thought content. He denies hallucinations and delusional thinking. He denies suicidal and homicidal thoughts. He is well oriented with good memory concentration general fund of knowledge etc. Plan: Continue his current medications, groups and other plans.
[2018-01-16 06:48] VITALS: BP 132/58; PULSE 57; RESP 16; TEMP 97.6
[2018-01-16] MEDS: ESCITALOPRAM 10 MG TAB PO SCH (09:01)
[2018-01-16] MEDS: NICOTINE 7MG/24HR PATCH TRANSDERM SCH (09:01)
--- NOTE | 2018-01-16 09:09 | P.DS ---
Providers Date of admission: 01/12/18 01:26 Expected date of discharge: 01/16/18 Attending physician: Aaron Ross Consults: 01/12/18 03:56 Consult Physician Routine Consulting Provider: Flash Schofield Consult Reason/Comments: For H & P for Medical Follow Up Do you want consulting provider notified?: Yes, Notify in am Primary care physician: Flash Schofield - Discharge Diagnosis(es) (1) Major depressive disorder, recurrent severe without psychotic features Current Visit: Yes Status: Acute Priority: High Hospital Course: Brief summary of admission note: This patient is a 47-year-old single male who was admitted to the mental health unit through the emergency room for acute suicidal ideation. He described a plan of walking into traffic. He presented feeling overwhelmed with being homeless for the last several years. He endorsed a depressed mood low energy anhedonia. His ADLs were poor. He has very limited social support. For full details please refer to my psychiatric evaluation dated 01/12/2018. Summary of hospital course: The patient was admitted to the mental health unit voluntarily. We reviewed his presenting symptoms and medication options. We decided to initiate Lexapro 10 mg daily for depressive symptoms. We discussed the potential benefits and side effects of Lexapro and his questions were answered. He was seen by internal medicine for routine history and physical exam. Social work met with the patient to complete a psychosocial assessment and for ongoing discharge planning. The patient reported a progressive improvement of symptoms while here. He reports a resolution of any acute suicidal ideation intent or plan. He demonstrated no agitated behavior while on the mental health unit. Mental status exam: The patient's is a thin male appearing older than his stated age. He is missing several of his upper teeth. He wears a morales. Eye contact is appropriate speech is fluent spontaneous nonpressured. He seated calmly in the chair during the session. He reports that his mood is better. He does not feel depressed at this time he reporting no hopelessness thinking or any acute suicidal ideation intent or plan. He reports that that crisis has resolved. He is reporting no homicidal ideation intent or plan. He endorses no auditory or visual hallucinations or any specific delusions. There is no observable evidence of psychosis. Thought process is linear he demonstrates no tangential thinking loose associations or flight of ideas. He does not appear hypomanic or manic. Insight and judgment have improved. He is oriented to person place and date. Impressions 1. Major depressive disorder recurrent severe without psychosis, rule out marijuana use disorder 2. Medical comorbidities include cerebrovascular accident, history of cerebral aneurysm 3. Unemployment, no income, no housing, limited support Plan: The patient will be discharged mental health unit today. He is eligible to [facility]. Social work will arrange his outpatient mental health follow-up which will likely be with [facility]. The patient does not require inpatient chemical dependency treatment for his use of marijuana. This will be discussed further as an outpatient. He is encouraged to follow up with a primary care physician. There is no imminent safety risk is appropriate for transition outpatient care. He is instructed to return to the hospital any acute safety concerns. He is planning on attending his court hearing tomorrow. Patient Condition at Discharge: Stable Plan - Discharge Summary New Discharge Prescriptions: New Escitalopram [Lexapro] 10 mg PO DAILY #30 tab Nicotine 7Mg/24Hr Patch [Habitrol] 1 patch TRANSDERM DAILY #12 patch Discharge Medication List Escitalopram [Lexapro] 10 mg PO DAILY #30 tab 01/16/18 [Rx] Nicotine 7Mg/24Hr Patch [Habitrol] 1 patch TRANSDERM DAILY #12 patch 01/16/18 [ Rx]
== END 2018-01-16 13:25 | disposition home or self-care (01) | DRG 885 ==
LOC: EC 22:11 → 3MHU 01-12 01:26
PROVIDERS: ADMIT Psychiatry & Neurology Psychiatry; ATTEND Psychiatry & Neurology Psychiatry
DX: F33.2 Major depressive disorder, recurrent severe without psychotic features (principal); R45.851 Suicidal ideations; I67.1 Cerebral aneurysm, nonruptured; F17.200 Nicotine dependence, unspecified, uncomplicated; I25.2 Old myocardial infarction; J44.9 Chronic obstructive pulmonary disease, unspecified; F41.9 Anxiety disorder, unspecified; F12.90 Cannabis use, unspecified, uncomplicated; Z86.73 Personal history of transient ischemic attack (TIA), and cerebral infarction without residual deficits; Z91.013 Allergy to seafood; Z91.018 Allergy to other foods; Z59.0 Homelessness; Z56.0 Unemployment, unspecified
CPT/HCPCS: 80053; 80061; 80306; 81003; 82075; 83036; 84132; 84443; 85025; 99285

== ENCOUNTER 2018-01-17 02:15 | Emergency (ER) | payer OTHER ==
[2018-01-17 02:25] VITALS: BP 131/106; PULSE 76; RESP 18; TEMP 97.6
[2018-01-17] MEDS ORDERED: ACETAMINOPHEN TAB 500 MG TAB PO STA (02:49)
[2018-01-17] MEDS ORDERED: IBUPROFEN 600 MG TAB PO STA (02:49)
[2018-01-17] MEDS ORDERED: ONDANSETRON 4 MG ODT STARTER PACK 2 TAB BTL PO STA (02:49)
--- NOTE | 2018-01-17 03:13 | ED ---
Dizziness HPI - General Chief Complaint: Dizziness Stated Complaint: headache Time Seen by Provider: 01/17/18 02:38 Source: patient, RN notes reviewed, old records reviewed Mode of arrival: ambulatory Limitations: no limitations - History of Present Illness Initial Comments: 47 year old Male with history of homelessness present so emergency department at 3 AM she complained of a headache. He reports it occurred after he was smoking marijuana. Patient reports that he also feels somewhat light headed. He said that he's not eating any food since he was recently discharged from the mental health unit today. Last time he ate was at 1 PM. Please reports after he was discharged she went to a friends to smoke marijuana and cigarettes. He states that he has nowhere to go at this time and seeking fci. - Related Data Previous Rx's Medication Instructions Recorded Escitalopram [Lexapro] 10 mg PO DAILY #30 tab 01/16/18 Nicotine 7Mg/24Hr Patch [Habitrol] 1 patch TRANSDERM DAILY #12 patch 01/16/18 Allergies Allergy/AdvReac Type Severity Reaction Status Date / Time horseradish Allergy Anaphylaxis Verified 01/17/18 02:25 shellfish derived [Shellfish] Allergy Anaphylaxis Verified 01/17/18 02:25 venom-wasp Allergy Anaphylaxis Verified 01/17/18 02:25 Review of Systems ROS Statement: Those systems with pertinent positive or pertinent negative responses have been documented in the HPI. ROS Other: All systems not noted in ROS Statement are negative. Past Medical History Past Medical History: Asthma, COPD, CVA/TIA, Myocardial Infarction ([place]) Additional Past Medical History / Comment(s): cerebral aneurysm Last Myocardial Infarction Date:: History of Any Multi-Drug Resistant Organisms: None Reported Past Surgical History: Heart Catheterization Past Anesthesia/Blood Transfusion Reactions: Previous Problems w/ Anesthesia Additional Past Anesthesia/Blood Transfusion Reaction / Comment(s): Hard to wake up Past Psychological History: Anxiety, Bipolar, Depression, Schizophrenia Smoking Status: Current every day smoker Past Alcohol Use History: Occasional Past Drug Use History: Marijuana - Past Family History Mother Family Medical History: CVA/TIA Father Additional Family Medical History / Comment(s): Emphesema General Exam - General Exam Comments Initial Comments: 47 year old male, appears older than stated age. No acute distress. Alert and oriented. Limitations: no limitations General appearance: alert, in no apparent distress Head exam: Present: atraumatic, normocephalic, normal inspection Eye exam: Present: normal appearance, PERRL, EOMI. Absent: scleral icterus, conjunctival injection, periorbital swelling ENT exam: Present: normal exam, mucous membranes moist Neck exam: Present: normal inspection. Absent: tenderness, meningismus, lymphadenopathy Respiratory exam: Present: normal lung sounds bilaterally. Absent: respiratory distress, wheezes, rales, rhonchi, stridor Cardiovascular Exam: Present: regular rate, normal rhythm, normal heart sounds. Absent: systolic murmur, diastolic murmur, rubs, gallop, clicks GI/Abdominal exam: Present: soft, normal bowel sounds. Absent: distended, tenderness, guarding, rebound, rigid Back exam: Present: normal inspection Neurological exam: Present: alert, oriented X3, CN II-XII intact Psychiatric exam: Present: normal affect, normal mood Course Vital Signs 01/17/18 02:20 Temperature 97.6 F Pulse Rate 76 Respiratory 18 Rate Blood Pressure 131/106 O2 Sat by Pulse 97 Oximetry Medical Decision Making - Medical Decision Making 47 year old Male with history of homelessness present so emergency department at 3 AM she complained of a headache. He reports it occurred after he was smoking marijuana. Patient reports that he also feels somewhat light headed. He said that he's not eating any food since he was recently discharged from the mental health unit today. PAtient appears in no acute distress. No falls or trauma. No neurological deficits, and patient denies chest pain or shortness of breath. Magda reports he is here seeking [facility]. Patient given motrin and tylenol, and zofran. PAtient then ate sandwhich and reports he feels better. Patient will be discharged and waiting in lobby until daytime. All questions answered and return parameters discussed. Disposition Clinical Impression: Headache, Marijuana abuse Disposition: HOME SELF-CARE Condition: Good Instructions: Acute Headache (ED) Additional Instructions: Patient advised to avoid smoking. Patient should take Motrin Tylenol for headaches or pains. Increase her fluid intake and make sure having small frequent meals. Referrals: Flash Schofield MD [Primary Care Provider] - 1-2 days Time of Disposition: 03:12
== END 2018-01-17 03:15 | disposition home or self-care (01) ==
LOC: EC 02:15
DX: R51 Headache (principal); F12.10 Cannabis abuse, uncomplicated; R42 Dizziness and giddiness; F17.210 Nicotine dependence, cigarettes, uncomplicated; Z91.030 Bee allergy status; Z91.013 Allergy to seafood; Z91.018 Allergy to other foods
CPT/HCPCS: 99284; S0119

== ENCOUNTER 2018-02-11 23:53 | Emergency (ER) | payer OTHER ==
[2018-02-12 00:14] VITALS: BP 124/61
[2018-02-12] MEDS ORDERED: ACETAMINOPHEN TAB 500 MG TAB PO STA (00:38)
[2018-02-12] MEDS ORDERED: ONDANSETRON 4 MG ODT STARTER PACK 2 TAB BTL PO STA (00:38)
[2018-02-12] MEDS ORDERED: IBUPROFEN 600 MG STARTER PACK 4 TAB BTL PO STA (00:38)
--- NOTE | 2018-02-12 00:55 | ED ---
Headache HPI - General Chief Complaint: Headache Stated Complaint: Headache Time Seen by Provider: 02/12/18 00:04 Source: RN notes reviewed, old records reviewed Mode of arrival: EMS Limitations: no limitations - History of Present Illness Initial Comments: Patient is a 47 year old male, with history of homelessness presents with migraine headache. Patient reports that he was kicked out of his friends house this evening, he called EMS for CC of headache. No fever, chills, or vision changes. No motrin or tyelnol. He has not eaten dinner. - Related Data Previous Rx's Medication Instructions Recorded Escitalopram [Lexapro] 10 mg PO DAILY #30 tab 01/16/18 Allergies Allergy/AdvReac Type Severity Reaction Status Date / Time horseradish Allergy Anaphylaxis Verified 02/12/18 00:14 shellfish derived [Shellfish] Allergy Anaphylaxis Verified 02/12/18 00:14 venom-wasp Allergy Anaphylaxis Verified 02/12/18 00:14 Review of Systems ROS Statement: Those systems with pertinent positive or pertinent negative responses have been documented in the HPI. ROS Other: All systems not noted in ROS Statement are negative. 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, cerebral aneurysm stable, migraines Last Myocardial Infarction Date:: History of Any Multi-Drug Resistant Organisms: None Reported Past Surgical History: Heart Catheterization Past Anesthesia/Blood Transfusion Reactions: Unable to Obtain Additional Past Anesthesia/Blood Transfusion Reaction / Comment(s): Pt has never had general/spinal anesthesia Past Psychological History: Anxiety, Bipolar, Depression, Schizoaffective Disorder, Schizophrenia Smoking Status: Current every day smoker Past Alcohol Use History: Occasional Past Drug Use History: Marijuana - Past Family History Mother Family Medical History: CVA/TIA Father Additional Family Medical History / Comment(s): Emphesema General Exam - General Exam Comments Initial Comments: This is a 47 year old male. No distress. Limitations: no limitations General appearance: alert, in no apparent distress Head exam: Present: atraumatic, normocephalic, normal inspection Eye exam: Present: normal appearance, PERRL, EOMI. Absent: scleral icterus, conjunctival injection, periorbital swelling ENT exam: Present: normal exam, mucous membranes moist Neck exam: Present: normal inspection. Absent: tenderness, meningismus, lymphadenopathy Respiratory exam: Present: normal lung sounds bilaterally. Absent: respiratory distress, wheezes, rales, rhonchi, stridor Cardiovascular Exam: Present: regular rate, normal rhythm, normal heart sounds. Absent: systolic murmur, diastolic murmur, rubs, gallop, clicks GI/Abdominal exam: Present: soft, normal bowel sounds. Absent: distended, tenderness, guarding, rebound, rigid Extremities exam: Present: normal inspection, full ROM, normal capillary refill. Absent: tenderness, pedal edema, joint swelling, calf tenderness Back exam: Present: normal inspection Course Vital Signs 02/11/18 02/12/18 23:55 01:50 Temperature 96.9 F L 98.3 F Pulse Rate 67 64 Respiratory 20 18 Rate Blood Pressure 124/61 124/61 O2 Sat by Pulse 97 98 Oximetry Medical Decision Making - Medical Decision Making 47 year old male with headache. Patient has a history of homelessness. Patent was given motrin adn tyelnol. He needed a place to stay tonight. He feels better after motrin and tylenol. Patient was given a sandwich, and will be given referrals for shelters. All questions answered and return parameters discussed. Disposition Clinical Impression: Headache Disposition: HOME SELF-CARE Condition: Good Instructions: Acute Headache (ED) Additional Instructions: Patient advised to take Motrin Tylenol for further headaches. Follow-up with PCP. Is patient prescribed a controlled substance at d/c from ED?: No If prescribed controlled substance>3 days was MAPS reviewed?: No When asked, does pt state using other controlled substances?: No Referrals: Flash Schofield MD [Primary Care Provider] - 1-2 days Time of Disposition: 01:41
[2018-02-12 01:51] VITALS: PULSE 64; RESP 18; TEMP 98.3
== END 2018-02-12 01:50 | disposition home or self-care (01) ==
LOC: EC 23:53
DX: R51 Headache (principal); Z59.0 Homelessness; F17.200 Nicotine dependence, unspecified, uncomplicated; Z91.013 Allergy to seafood; Z91.018 Allergy to other foods; Z91.048 Other nonmedicinal substance allergy status
CPT/HCPCS: 99284; S0119

== ENCOUNTER 2018-03-12 23:27 | Emergency (ER) | payer OTHER ==
--- NOTE | 2018-03-13 00:19 | ED ---
General Adult HPI - General Chief complaint: Dizziness Stated complaint: dizzy/light headed Time Seen by Provider: 03/12/18 23:40 Source: patient, RN notes reviewed Mode of arrival: wheelchair Limitations: no limitations - History of Present Illness Initial comments: This is a 48-year-old male who comes emergency Department states he is homeless. Patient states last night he got a little bit dizzy and again today. Patient states she's had no palpitations no chest pain or difficulty breathing or shortness of breath. Patient states this happens to him once a while specimen is not eating very well. Patient denies any headache patient denies numbness weakness. Patient states lying in bed he feels fine. Patient states it only lasts for 2-3 seconds on each occasion. Patient denies any abdominal pain patient denies nausea vomiting diarrhea. Patient states he is having some hallucinations occasionally but he says it's an ongoing problem for 30 years and it's nothing new today. Patient states she is not here for his hallucinations. - Related Data Previous Rx's Medication Instructions Recorded Escitalopram [Lexapro] 10 mg PO DAILY #30 tab 01/16/18 Allergies Allergy/AdvReac Type Severity Reaction Status Date / Time horseradish Allergy Anaphylaxis Verified 03/12/18 23:52 shellfish derived [Shellfish] Allergy Anaphylaxis Verified 03/12/18 23:52 venom-wasp Allergy Anaphylaxis Verified 03/12/18 23:52 Review of Systems ROS Statement: Those systems with pertinent positive or pertinent negative responses have been documented in the HPI. ROS Other: All systems not noted in ROS Statement are negative. 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, cerebral aneurysm stable, migraines Last Myocardial Infarction Date:: History of Any Multi-Drug Resistant Organisms: None Reported Past Surgical History: Heart Catheterization Past Anesthesia/Blood Transfusion Reactions: Unable to Obtain Additional Past Anesthesia/Blood Transfusion Reaction / Comment(s): Pt has never had general/spinal anesthesia Past Psychological History: Anxiety, Bipolar, Depression, Schizoaffective Disorder, Schizophrenia Smoking Status: Current every day smoker Past Alcohol Use History: Occasional Past Drug Use History: Marijuana - Past Family History Mother Family Medical History: CVA/TIA Father Additional Family Medical History / Comment(s): Emphesema General Exam - General Exam Comments Initial Comments: GENERAL: Patient is well-developed and well-nourished. Patient is nontoxic and well- hydrated and is in no acute distress. Patient was sleeping when I entered the room. ENT: Neck is soft and supple. No significant lymphadenopathy is noted. Oropharynx is clear. Moist mucous membranes. Neck has full range of motion without eliciting any pain. EYES: The sclera were anicteric and conjunctiva were pink and moist. Extraocular movements were intact and pupils were equal round and reactive to light. Eyelids were unremarkable. PULMONARY: Unlabored respirations. Good breath sounds bilaterally. No audible rales rhonchi or wheezing was noted. CARDIOVASCULAR: There is a regular rate and rhythm without any murmurs gallops or rubs. ABDOMEN: Soft and nontender with normal bowel sounds. No palpable organomegaly was noted. There is no palpable pulsatile mass. SKIN: Skin is clear with no lesions or rashes and otherwise unremarkable. NEUROLOGIC: Patient is alert and oriented x3. Cranial nerves II through XII are grossly intact. Motor and sensory are also intact. Normal speech, volume and content. Symmetrical smile. MUSCULOSKELETAL: Normal extremities with adequate strength and full range of motion. LYMPHATICS: No significant lymphadenopathy is noted PSYCHIATRIC: Patient claims to see hallucinations occasionally he states this is an ongoing thing for the last 30 years Limitations: no limitations Course Vital Signs 03/12/18 03/13/18 03/13/18 23:49 00:28 00:45 Temperature 98.5 F Pulse Rate 77 67 Respiratory 18 18 Rate Blood Pressure 110/57 106/70 Blood Pressure 108/64 [Right Arm Sitting] Blood Pressure 116/72 [Right Arm Standing] Blood Pressure 107/60 [Right Arm Supine] O2 Sat by Pulse 98 98 Oximetry Medical Decision Making - Medical Decision Making EKG shows normal sinus rhythm at 60 bpm WV interval is 124 QRS is 86 QT interval 422 QTC is 422. Patient's no ST segment elevation or depression. Chest x-ray shows no acute abnormality. Patient was able to ambulate without problem patient had no lightheaded episodes while in the emergency department. Patient slept his entire visit in the emergency department. - Lab Data Result diagrams: 03/13/18 00:45 03/13/18 00:45 Lab Results 03/13/18 03/13/18 03/13/18 Range/Units 00:45 00:45 00:45 WBC 9.2 (3.8-10.6) k/uL RBC 4.33 (4.30-5.90) m/uL Hgb 12.5 L (13.0-17.5) gm/dL Hct 38.5 L (39.0-53.0) % MCV 88.9 (80.0-100.0) fL MCH 28.9 (25.0-35.0) pg MCHC 32.5 (31.0-37.0) g/dL RDW 13.9 (11.5-15.5) % Plt Count 315 (150-450) k/uL Neutrophils % 57 % Lymphocytes % 30 % Monocytes % 6 % Eosinophils % 4 % Basophils % 1 % Neutrophils # 5.2 (1.3-7.7) k/uL Lymphocytes # 2.8 (1.0-4.8) k/uL Monocytes # 0.5 (0-1.0) k/uL Eosinophils # 0.4 (0-0.7) k/uL Basophils # 0.1 (0-0.2) k/uL PT (9.0-12.0) sec INR (<1.2) APTT (22.0-30.0) sec Sodium 140 (137-145) mmol/L Potassium 4.5 (3.5-5.1) mmol/L Chloride 105 (98-107) mmol/L Carbon Dioxide 26 (22-30) mmol/L Anion Gap 9 mmol/L BUN 14 (9-20) mg/dL Creatinine 0.90 (0.66-1.25) mg/dL Est GFR (CKD-EPI)AfAm >90 (>60 ml/min/1.73 sqM) Est GFR (CKD-EPI)NonAf >90 (>60 ml/min/1.73 sqM) Glucose 93 (74-99) mg/dL Calcium 9.1 (8.4-10.2) mg/dL Magnesium 2.0 (1.6-2.3) mg/dL Total Bilirubin 0.2 (0.2-1.3) mg/dL AST 24 (17-59) U/L ALT 22 (21-72) U/L Alkaline Phosphatase 95 (38-126) U/L Total Creatine Kinase 79 (55-170) U/L CK-MB (CK-2) 1.0 (0.0-2.4) ng/mL CK-MB (CK-2) Rel Index 1.3 Troponin I <0.012 (0.000-0.034) ng/mL Total Protein 5.8 L (6.3-8.2) g/dL Albumin 3.7 (3.5-5.0) g/dL 03/13/18 Range/Units 00:45 WBC (3.8-10.6) k/uL RBC (4.30-5.90) m/uL Hgb (13.0-17.5) gm/dL Hct (39.0-53.0) % MCV (80.0-100.0) fL MCH (25.0-35.0) pg MCHC (31.0-37.0) g/dL RDW (11.5-15.5) % Plt Count (150-450) k/uL Neutrophils % % Lymphocytes % % Monocytes % % Eosinophils % % Basophils % % Neutrophils # (1.3-7.7) k/uL Lymphocytes # (1.0-4.8) k/uL Monocytes # (0-1.0) k/uL Eosinophils # (0-0.7) k/uL Basophils # (0-0.2) k/uL PT 9.8 (9.0-12.0) sec INR 1.0 (<1.2) APTT 24.0 (22.0-30.0) sec Sodium (137-145) mmol/L Potassium (3.5-5.1) mmol/L Chloride (98-107) mmol/L Carbon Dioxide (22-30) mmol/L Anion Gap mmol/L BUN (9-20) mg/dL Creatinine (0.66-1.25) mg/dL Est GFR (CKD-EPI)AfAm (>60 ml/min/1.73 sqM) Est GFR (CKD-EPI)NonAf (>60 ml/min/1.73 sqM) Glucose (74-99) mg/dL Calcium (8.4-10.2) mg/dL Magnesium (1.6-2.3) mg/dL Total Bilirubin (0.2-1.3) mg/dL AST (17-59) U/L ALT (21-72) U/L Alkaline Phosphatase (38-126) U/L Total Creatine Kinase (55-170) U/L CK-MB (CK-2) (0.0-2.4) ng/mL CK-MB (CK-2) Rel Index Troponin I (0.000-0.034) ng/mL Total Protein (6.3-8.2) g/dL Albumin (3.5-5.0) g/dL Disposition Clinical Impression: Lightheaded Disposition: HOME SELF-CARE Instructions: Dizziness (ED) Is patient prescribed a controlled substance at d/c from ED?: No Referrals: Flash Schofield MD [Primary Care Provider] - 1-2 days Time of Disposition: 01:55
--- NOTE | 2018-03-13 00:54 | XR ---
EXAMINATION TYPE: XR chest 2V DATE OF EXAM: 03/13/2018 COMPARISON: 01/30/2018 HISTORY: Chest pain TECHNIQUE: Frontal and lateral views of the chest are obtained. FINDINGS: Heart and mediastinum are normal. Lungs are clear. Diaphragm is normal. There are chest le ads. Bony thorax is intact. IMPRESSION: Normal chest. No change.
[2018-03-13 00:56] LABS: Basophils # (A) 0.1 k/uL (0-0.2); Basophils % (A) 1 %; Eosinophils # (A) 0.4 k/uL (0-0.7); Eosinophils % (A) 4 %; HCT 38.5 % (39.0-53.0); HGB 12.5 gm/dL (13.0-17.5); Lymphocytes # (A) 2.8 k/uL (1.0-4.8); Lymphocytes % (A) 30 %; MCH 28.9 pg (25.0-35.0); MCHC 32.5 g/dL (31.0-37.0); MCV 88.9 fL (80.0-100.0); Mean Platelet Volume 6.7; Monocytes # (A) 0.5 k/uL (0-1.0); Monocytes % (A) 6 %; Neutrophils # (A) 5.2 k/uL (1.3-7.7); Neutrophils % (A) 57 %; Platelet Count 315 k/uL (150-450); RBC 4.33 m/uL (4.30-5.90); RDW 13.9 % (11.5-15.5); WBC 9.2 k/uL (3.8-10.6)
[2018-03-13 01:10] LABS: Prothrombin Time 9.8 sec (9.0-12.0)
[2018-03-13 01:17] LABS: ALT 22 U/L (21-72); AST 24 U/L (17-59); Albumin 3.7 g/dL (3.5-5.0); Alkaline Phosphatase 95 U/L (38-126); Anion Gap 9 mmol/L; Blood Urea Nitrogen 14 mg/dL (9-20); Calcium 9.1 mg/dL (8.4-10.2); Carbon Dioxide 26 mmol/L (22-30); Chloride 105 mmol/L (98-107); Glucose 93 mg/dL (74-99); Potassium 4.5 mmol/L (3.5-5.1); Sodium 140 mmol/L (137-145); Total Bilirubin 0.2 mg/dL (0.2-1.3); Total Protein 5.8 g/dL (6.3-8.2)
[2018-03-13 01:19] LABS: Creatine Kinase 79 U/L (55-170)
[2018-03-13 01:32] LABS: Troponin I <0.012 ng/mL (0.000-0.034)
[2018-03-13 03:03] VITALS: BP 96/63; PULSE 87; RESP 16; TEMP 98.3
== END 2018-03-13 03:03 | disposition home or self-care (01) ==
LOC: EC 23:27
DX: R42 Dizziness and giddiness (principal); R44.1 Visual hallucinations; Z59.0 Homelessness; F17.200 Nicotine dependence, unspecified, uncomplicated; Z91.018 Allergy to other foods; Z91.013 Allergy to seafood; Z91.030 Bee allergy status
CPT/HCPCS: 36415; 71046; 80053; 82550; 82553; 83735; 84484; 85025; 85610; 85730; 93005; 99284

== ENCOUNTER 2018-03-19 22:35 | Emergency (ER) | payer OTHER ==
[2018-03-19 22:39] VITALS: TEMP 97.4
[2018-03-19] MEDS ORDERED: IPRATROPIUM-ALBUTEROL 3 ML NEB INHALATION STA (22:44)
--- NOTE | 2018-03-19 22:49 | ED ---
SOB HPI - General Chief Complaint: Shortness of Breath Stated Complaint: THADDEUS Time Seen by Provider: 03/19/18 22:41 Source: patient, RN notes reviewed Mode of arrival: ambulatory Limitations: no limitations - History of Present Illness Initial Comments: This is a 48-year-old male with history of COPD who presents to the emergency department with chief complaint of shortness of breath. Patient states that he developed shortness of breath earlier today. He states that he believes it is related to the hot weather. He states he does not take any medication for the COPD. He denies any increase in cough or sputum production. He denies chest pain. Denies fevers or chills, abdominal pain, nausea or vomiting, headache. - Related Data Previous Rx's Medication Instructions Recorded Escitalopram [Lexapro] 10 mg PO DAILY #30 tab 01/16/18 Albuterol Inhaler [Ventolin Hfa 1 - 2 puff INHALATION RT-Q6H PRN 03/19/18 Inhaler] #1 inhaler Azithromycin [Zithromax Z-pack] 0 mg PO DIRECTED #6 tab 03/19/18 predniSONE 20 mg PO BID #8 tab 03/19/18 Allergies Allergy/AdvReac Type Severity Reaction Status Date / Time horseradish Allergy Anaphylaxis Verified 03/19/18 22:39 shellfish derived [Shellfish] Allergy Anaphylaxis Verified 03/19/18 22:39 venom-wasp Allergy Anaphylaxis Verified 03/19/18 22:39 Review of Systems ROS Statement: Those systems with pertinent positive or pertinent negative responses have been documented in the HPI. ROS Other: All systems not noted in ROS Statement are negative. 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, cerebral aneurysm stable, migraines Last Myocardial Infarction Date:: History of Any Multi-Drug Resistant Organisms: None Reported Past Surgical History: Heart Catheterization Past Anesthesia/Blood Transfusion Reactions: Unable to Obtain Additional Past Anesthesia/Blood Transfusion Reaction / Comment(s): Pt has never had general/spinal anesthesia Past Psychological History: Anxiety, Bipolar, Depression, Schizoaffective Disorder, Schizophrenia Smoking Status: Current every day smoker Past Alcohol Use History: Occasional Past Drug Use History: Marijuana - Past Family History Mother Family Medical History: CVA/TIA Father Additional Family Medical History / Comment(s): Emphesema General Exam - General Exam Comments Initial Comments: General: Awake and alert, well-developed; in no apparent distress. HEENT: Head atraumatic, normocephalic. Pupils are equal, round and reactive to light. Extraocular movements intact. Oropharynx moist without erythema or exudate. Neck: Supple. Normal ROM. Cardiovascular: Regular rate and rhythm. No murmurs, rubs or gallops. Chest symmetrical. Respiratory: Diminished breath sounds throughout. No wheezes, rales or rhonchi. Normal respiratory effort with no use of accessory muscles. Abdomen: Soft, non-tender, non-distended. No rigidity, rebound or guarding. Musculoskeletal: Normal ROM, no tenderness bilateral upper and lower extremities. Ambulating normally. Skin: [place], warm and dry without rashes or lesions. Neurological: Alert and oriented x3. CN II-XII grossly intact. Speech is fluent and answers are appropriate. No focal neuro deficits. Psychiatric: Normal mood and affect. No overt signs of depression or anxiety noted. Limitations: no limitations Course Vital Signs 03/19/18 03/19/18 03/19/18 22:37 22:59 23:08 Temperature 97.4 F L Pulse Rate 65 72 Respiratory 16 24 Rate Blood Pressure 139/68 O2 Sat by Pulse 98 Oximetry Medical Decision Making - Medical Decision Making This is a 48-year-old male who presents to the emergency department with chief complaint of shortness of breath. Patient does state he has a history of COPD. He states he became short of breath earlier today. Denies chest pain, fevers or chills. EKG revealed normal sinus rhythm. Chest x-ray revealed no acute abnormalities. CBC, CMP and coags were unremarkable. Troponin and cardiac profile are negative. Patient's vital signs are stable throughout entire emergency department stay. No respiratory distress or use of accessory muscles. Patient will be treated for acute exacerbation of COPD with antibiotics, course of steroids and he will also be given a prescription for albuterol. Patient's vital signs are stable and he is in no acute distress. He will be discharged home at this time. All questions answered. Patient is in agreement with plan and voices understanding. - Lab Data Result diagrams: 03/19/18 22:41 03/19/18 22:41 Lab Results 03/19/18 03/19/18 03/19/18 Range/Units 22:41 22:41 22:41 WBC 10.5 (3.8-10.6) k/uL RBC 4.30 (4.30-5.90) m/uL Hgb 12.5 L (13.0-17.5) gm/dL Hct 38.5 L (39.0-53.0) % MCV 89.4 (80.0-100.0) fL MCH 28.9 (25.0-35.0) pg MCHC 32.4 (31.0-37.0) g/dL RDW 13.6 (11.5-15.5) % Plt Count 304 (150-450) k/uL Neutrophils % 56 % Lymphocytes % 31 % Monocytes % 6 % Eosinophils % 4 % Basophils % 1 % Neutrophils # 5.9 (1.3-7.7) k/uL Lymphocytes # 3.2 (1.0-4.8) k/uL Monocytes # 0.7 (0-1.0) k/uL Eosinophils # 0.4 (0-0.7) k/uL Basophils # 0.2 (0-0.2) k/uL PT (9.0-12.0) sec INR (<1.2) APTT (22.0-30.0) sec Sodium 140 (137-145) mmol/L Potassium 4.3 (3.5-5.1) mmol/L Chloride 107 (98-107) mmol/L Carbon Dioxide 22 (22-30) mmol/L Anion Gap 11 mmol/L BUN 12 (9-20) mg/dL Creatinine 0.80 (0.66-1.25) mg/dL Est GFR (CKD-EPI)AfAm >90 (>60 ml/min/1.73 sqM) Est GFR (CKD-EPI)NonAf >90 (>60 ml/min/1.73 sqM) Glucose 89 (74-99) mg/dL Calcium 9.1 (8.4-10.2) mg/dL Total Bilirubin 0.2 (0.2-1.3) mg/dL AST 20 (17-59) U/L ALT 23 (21-72) U/L Alkaline Phosphatase 97 (38-126) U/L Total Creatine Kinase 92 (55-170) U/L CK-MB (CK-2) 0.8 (0.0-2.4) ng/mL CK-MB (CK-2) Rel Index 0.9 Troponin I <0.012 (0.000-0.034) ng/mL Total Protein 6.0 L (6.3-8.2) g/dL Albumin 3.7 (3.5-5.0) g/dL 03/19/18 Range/Units 22:41 WBC (3.8-10.6) k/uL RBC (4.30-5.90) m/uL Hgb (13.0-17.5) gm/dL Hct (39.0-53.0) % MCV (80.0-100.0) fL MCH (25.0-35.0) pg MCHC (31.0-37.0) g/dL RDW (11.5-15.5) % Plt Count (150-450) k/uL Neutrophils % % Lymphocytes % % Monocytes % % Eosinophils % % Basophils % % Neutrophils # (1.3-7.7) k/uL Lymphocytes # (1.0-4.8) k/uL Monocytes # (0-1.0) k/uL Eosinophils # (0-0.7) k/uL Basophils # (0-0.2) k/uL PT 9.9 (9.0-12.0) sec INR 1.0 (<1.2) APTT 23.5 (22.0-30.0) sec Sodium (137-145) mmol/L Potassium (3.5-5.1) mmol/L Chloride (98-107) mmol/L Carbon Dioxide (22-30) mmol/L Anion Gap mmol/L BUN (9-20) mg/dL Creatinine (0.66-1.25) mg/dL Est GFR (CKD-EPI)AfAm (>60 ml/min/1.73 sqM) Est GFR (CKD-EPI)NonAf (>60 ml/min/1.73 sqM) Glucose (74-99) mg/dL Calcium (8.4-10.2) mg/dL Total Bilirubin (0.2-1.3) mg/dL AST (17-59) U/L ALT (21-72) U/L Alkaline Phosphatase (38-126) U/L Total Creatine Kinase (55-170) U/L CK-MB (CK-2) (0.0-2.4) ng/mL CK-MB (CK-2) Rel Index Troponin I (0.000-0.034) ng/mL Total Protein (6.3-8.2) g/dL Albumin (3.5-5.0) g/dL - Radiology Data Radiology results: report reviewed, image reviewed Chest x-ray impression: No active cardiopulmonary disease. No change. Disposition Clinical Impression: COPD exacerbation Disposition: HOME SELF-CARE Condition: Good Instructions: COPD (Chronic Obstructive Pulmonary Disease) (ED), Chronic Lung Disease and Infection Prevention (ED) Additional Instructions: Please take medications as prescribed. Please follow up with primary care provider within 1-2 days. Return to emergency department if symptoms should worsen or any concerns arise. Prescriptions: Albuterol Inhaler [Ventolin Hfa Inhaler] 1 - 2 puff INHALATION RT-Q6H PRN #1 inhaler PRN Reason: Dyspnea Azithromycin [Zithromax Z-pack] 0 mg PO DIRECTED #6 tab predniSONE 20 mg PO BID #8 tab Is patient prescribed a controlled substance at d/c from ED?: No Referrals: Flash Schofield MD [Primary Care Provider] - 1-2 days Time of Disposition: 23:49
[2018-03-19 22:54] LABS: Basophils # (A) 0.2 k/uL (0-0.2); Basophils % (A) 1 %; Eosinophils # (A) 0.4 k/uL (0-0.7); Eosinophils % (A) 4 %; HCT 38.5 % (39.0-53.0); HGB 12.5 gm/dL (13.0-17.5); Lymphocytes # (A) 3.2 k/uL (1.0-4.8); Lymphocytes % (A) 31 %; MCH 28.9 pg (25.0-35.0); MCHC 32.4 g/dL (31.0-37.0); MCV 89.4 fL (80.0-100.0); Mean Platelet Volume 6.6; Monocytes # (A) 0.7 k/uL (0-1.0); Monocytes % (A) 6 %; Neutrophils # (A) 5.9 k/uL (1.3-7.7); Neutrophils % (A) 56 %; Platelet Count 304 k/uL (150-450); RDW 13.6 % (11.5-15.5); WBC 10.5 k/uL (3.8-10.6)
[2018-03-19 23:04] LABS: ALT 23 U/L (21-72); AST 20 U/L (17-59); Albumin 3.7 g/dL (3.5-5.0); Alkaline Phosphatase 97 U/L (38-126); Anion Gap 11 mmol/L; Blood Urea Nitrogen 12 mg/dL (9-20); Calcium 9.1 mg/dL (8.4-10.2); Carbon Dioxide 22 mmol/L (22-30); Chloride 107 mmol/L (98-107); Glucose 89 mg/dL (74-99); Potassium 4.3 mmol/L (3.5-5.1); Sodium 140 mmol/L (137-145); Total Bilirubin 0.2 mg/dL (0.2-1.3)
--- NOTE | 2018-03-19 23:04 | XR ---
EXAMINATION TYPE: XR chest 2V DATE OF EXAM: 03/19/2018 COMPARISON: 03/13/2018 HISTORY: COPD. Asthma. TECHNIQUE: Frontal and lateral views of the chest are obtained. FINDINGS: Heart and mediastinum are normal. Lungs are clear. Diaphragm is normal. Bony thorax is int act. IMPRESSION: No active cardiopulmonary disease. No change.
[2018-03-19 23:06] LABS: Partial Thromboplastin Time 23.5 sec (22.0-30.0); Prothrombin Time 9.9 sec (9.0-12.0)
[2018-03-19 23:10] LABS: Creatine Kinase 92 U/L (55-170)
[2018-03-19 23:24] LABS: Creatine Kinase MB 0.8 ng/mL (0.0-2.4); Troponin I <0.012 ng/mL (0.000-0.034)
[2018-03-19] MEDS ORDERED: predniSONE 50 MG TAB PO STA (23:35)
[2018-03-19 23:52] VITALS: BP 124/68; PULSE 78; RESP 18
== END 2018-03-19 23:52 | disposition home or self-care (01) ==
LOC: EC 22:35
DX: J44.1 Chronic obstructive pulmonary disease with (acute) exacerbation (principal); F17.200 Nicotine dependence, unspecified, uncomplicated; Z86.73 Personal history of transient ischemic attack (TIA), and cerebral infarction without residual deficits; Z95.818 Presence of other cardiac implants and grafts; Z91.018 Allergy to other foods; Z91.013 Allergy to seafood; Z91.038 Other insect allergy status
CPT/HCPCS: 36415; 94640; 93005; 80053; 82550; 82553; 84484; 85025; 85610; 85730; 71046; 99285; J7512

== ENCOUNTER 2018-08-29 23:33 | Emergency (ER) | payer OTHER ==
[2018-08-29] MEDS ORDERED: SODIUM CHLORIDE 0.9% 1,000 ML IV STA (23:48)
[2018-08-30 00:14] LABS: Basophils # (A) 0.1 k/uL (0-0.2); Basophils % (A) 1 %; Eosinophils # (A) 0.4 k/uL (0-0.7); Eosinophils % (A) 3 %; HCT 33.8 % (39.0-53.0); Lymphocytes # (A) 2.5 k/uL (1.0-4.8); Lymphocytes % (A) 22 %; MCH 28.6 pg (25.0-35.0); MCHC 32.7 g/dL (31.0-37.0); MCV 87.6 fL (80.0-100.0); Mean Platelet Volume 6.4; Monocytes # (A) 0.5 k/uL (0-1.0); Monocytes % (A) 5 %; Neutrophils # (A) 7.5 k/uL (1.3-7.7); Neutrophils % (A) 68 %; Platelet Count 342 k/uL (150-450); RBC 3.86 m/uL (4.30-5.90); RDW 14.5 % (11.5-15.5); WBC 11.1 k/uL (3.8-10.6)
--- NOTE | 2018-08-30 00:21 | ED ---
Chest Pain HPI - General Source: patient, RN notes reviewed, old records reviewed Mode of arrival: wheelchair Limitations: no limitations <Diane Maria - Last Filed: 08/30/18 04:28> <Elyssa Chavez - Last Filed: 08/30/18 05:09> - General Chief Complaint: Chest Pain Stated Complaint: Chest pain, SOB Time Seen by Provider: 08/29/18 23:48 - History of Present Illness Initial Comments: Patient is a 48-year-old male, presents prescribed today with chief complaint of chest pain. Onset of 30 minutes prior to arrival. Patient reports that he is a smoker. Denies any previous cardiac history. Patient denies any nausea or vomiting. Denies any significant shortness of breath. Patient is homeless. Patient denies any recent fever, chills, shortness of breath, chest pain, back pain, abdominal pain, nausea vomiting, numbness or tingling, dysuria or hematuria, constipation or diarrhea, headaches or visual changes, or any other current symptoms (Diane Maria) - Related Data Previous Rx's Medication Instructions Recorded Escitalopram [Lexapro] 10 mg PO DAILY #30 tab 01/16/18 Albuterol Inhaler [Ventolin Hfa 1 - 2 puff INHALATION RT-Q6H PRN 03/19/18 Inhaler] #1 inhaler Azithromycin [Zithromax Z-pack] 0 mg PO DIRECTED #6 tab 03/19/18 predniSONE 20 mg PO BID #8 tab 03/19/18 Allergies Allergy/AdvReac Type Severity Reaction Status Date / Time horseradish Allergy Anaphylaxis Verified 08/29/18 23:42 shellfish derived [Shellfish] Allergy Anaphylaxis Verified 08/29/18 23:42 venom-wasp Allergy Anaphylaxis Verified 08/29/18 23:42 Review of Systems ROS Other: All systems not noted in ROS Statement are negative. <Diane Maria - Last Filed: 08/30/18 04:28> ROS Other: All systems not noted in ROS Statement are negative. <Elyssa Chavez - Last Filed: 08/30/18 05:09> ROS Statement: Those systems with pertinent positive or pertinent negative responses have been documented in the HPI. EKG Findings - EKG Comments: EKG Findings:: EKG performed at 2349 shows normal sinus rhythm normal ECG. Ventricular rate of 67 bpm. UT interval is 1:30 milliseconds QRS duration 86 ms. QT QTc is 394/416 ms. 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, cerebral aneurysm stable, migraines, Last Myocardial Infarction Date:: History of Any Multi-Drug Resistant Organisms: None Reported Past Surgical History: Heart Catheterization Past Anesthesia/Blood Transfusion Reactions: Unable to Obtain Additional Past Anesthesia/Blood Transfusion Reaction / Comment(s): Pt has never had general/spinal anesthesia Past Psychological History: Anxiety, Bipolar, Depression, Schizoaffective Disorder, Schizophrenia Smoking Status: Current every day smoker Past Alcohol Use History: Occasional Past Drug Use History: Marijuana - Past Family History Mother Family Medical History: CVA/TIA Father Additional Family Medical History / Comment(s): Emphesema <Diane Maria - Last Filed: 08/30/18 04:28> General Exam Limitations: no limitations General appearance: alert Head exam: Present: atraumatic, normocephalic, normal inspection Eye exam: Present: normal appearance, PERRL, EOMI. Absent: scleral icterus, conjunctival injection, periorbital swelling ENT exam: Present: normal exam, mucous membranes moist Neck exam: Present: normal inspection. Absent: tenderness, meningismus, lymphadenopathy Respiratory exam: Present: normal lung sounds bilaterally. Absent: respiratory distress, wheezes, rales, rhonchi, stridor Cardiovascular Exam: Present: regular rate, normal rhythm, normal heart sounds. Absent: systolic murmur, diastolic murmur, rubs, gallop, clicks GI/Abdominal exam: Present: soft, normal bowel sounds. Absent: distended, tenderness, guarding, rebound, rigid Extremities exam: Present: normal inspection, full ROM, normal capillary refill. Absent: tenderness, pedal edema, joint swelling, calf tenderness Back exam: Present: normal inspection Neurological exam: Present: alert, oriented X3, CN II-XII intact Psychiatric exam: Present: normal affect, normal mood <Diane Maria - Last Filed: 08/30/18 04:28> <Elyssa Chavez - Last Filed: 08/30/18 05:09> - General Exam Comments Initial Comments: Well-appearing 48-year-old male. Alert and oriented. Patient appears in no significant distress. (Diane Maria) Vital Signs 08/29/18 08/30/18 08/30/18 23:40 03:22 04:49 Temperature 97.9 F 98.7 F Pulse Rate 81 63 Respiratory 18 19 18 Rate Blood Pressure 134/79 122/75 O2 Sat by Pulse 100 98 Oximetry Chest Pain MDM <Diane Maria - Last Filed: 08/30/18 04:28> <Elyssa Chavez - Last Filed: 08/30/18 05:09> - MDM 48-year-old male present today with onset of chest pain 30 minutes prior to arrival. His EKG was negative for any acute process. Patient does have a history of homelessness. Patient at this time has initial negative troponin. We did have the Patient wait in the emergency department for 4 hours with a repeat troponin. This was subsequently negative as well. Chest x-ray negative for any acute cardio pulmonary disease. Mild COPD. Normal heart. No acute changes. White blood cell count was within normal limits. His lungs are clear to auscultation. No significant murmurs noted or abdominal pain. I discussed at this time patient's has unlikely event of cardiac cause for her discomfort and chest. Patient does report that he was here 4 group home in the meantime. Patient will be discharged with following up with primary care physician. Given referrals for PCP and cardiology. (Diane Maria) I was available for consultation in the emergency department. The history and physical exam were done by the midlevel provider. I was consulted for this patient's care. I reviewed the case with the midlevel provider and based on their presentation of the patient, I agree with the assessment, medical decision making and plan of care as documented. (Elyssa Chavez) Disposition Is patient prescribed a controlled substance at d/c from ED?: No Time of Disposition: 04:29 <Diane Maria - Last Filed: 08/30/18 04:28> <Elyssa Chavez P - Last Filed: 08/30/18 05:09> Clinical Impression: Chest pain Disposition: HOME SELF-CARE Condition: Good Instructions: Chest Pain (ED) Additional Instructions: Patient has follow-up with primary care physician. Return to emergency department if any alarming signs or symptoms occur. Referrals: Guy Campos MD [Primary Care Provider] - 1-2 days
[2018-08-30 00:26] LABS: Partial Thromboplastin Time 23.3 sec (22.0-30.0); Prothrombin Time 9.9 sec (9.0-12.0)
--- NOTE | 2018-08-30 00:27 | XR ---
EXAMINATION TYPE: XR chest 2V DATE OF EXAM: 08/30/2018 COMPARISON: 03/19/2018 HISTORY: Chest pain TECHNIQUE: Frontal and lateral views of the chest are obtained. FINDINGS: Heart and mediastinum are normal. Lungs are clear of infiltrate. Diaphragm is normal. Ther e are chest leads. There is deformity lateral right clavicle related to old fracture. IMPRESSION: No active cardiopulmonary disease. There is probably mild COPD.. Normal heart. No change .
[2018-08-30 00:29] LABS: ALT 32 U/L (21-72); AST 25 U/L (17-59); Albumin 3.8 g/dL (3.5-5.0); Alkaline Phosphatase 99 U/L (38-126); Anion Gap 8 mmol/L; Blood Urea Nitrogen 18 mg/dL (9-20); Calcium 9.2 mg/dL (8.4-10.2); Carbon Dioxide 23 mmol/L (22-30); Chloride 106 mmol/L (98-107); Glucose 100 mg/dL (74-99); Magnesium 1.8 mg/dL (1.6-2.3); Potassium 4.1 mmol/L (3.5-5.1); Sodium 137 mmol/L (137-145); Total Bilirubin 0.3 mg/dL (0.2-1.3); Total Protein 6.4 g/dL (6.3-8.2)
[2018-08-30 00:34] LABS: Creatine Kinase 171 U/L (55-170)
[2018-08-30 00:47] LABS: Creatine Kinase MB 1.9 ng/mL (0.0-2.4); Troponin I <0.012 ng/mL (0.000-0.034)
[2018-08-30 04:59] VITALS: BP 122/75; PULSE 63; RESP 18; TEMP 98.7
== END 2018-08-30 04:49 | disposition home or self-care (01) ==
LOC: EC 23:33
DX: R07.9 Chest pain, unspecified (principal); R06.02 Shortness of breath; I25.2 Old myocardial infarction; F17.200 Nicotine dependence, unspecified, uncomplicated; Z86.73 Personal history of transient ischemic attack (TIA), and cerebral infarction without residual deficits; Z59.0 Homelessness; Z91.018 Allergy to other foods; Z91.013 Allergy to seafood; Z91.030 Bee allergy status; Z95.5 Presence of coronary angioplasty implant and graft
CPT/HCPCS: 36415; 71046; 80053; 82550; 82553; 83735; 84484; 85025; 85610; 85730; 93005; 96360; 96361; 99285

== ENCOUNTER 2018-10-08 05:12 | Observation (INO) | payer OTHER ==
--- NOTE | 2018-10-08 06:10 | XR ---
EXAM: XR Chest, 2 Views CLINICAL HISTORY: Chest pain TECHNIQUE: Frontal and lateral views of the chest. COMPARISON: Chest x-ray dated 08/30/2018 FINDINGS: Lungs: Lungs are clear. Pleural space: No pleural effusion or pneumothorax. Heart: Unremarkable. No cardiomegaly. Mediastinum: Unremarkable. Bones/joints: Unremarkable. IMPRESSION: No acute findings.
--- NOTE | 2018-10-08 06:22 | ED ---
Chest Pain HPI - General Chief Complaint: Chest Pain Stated Complaint: Chest Pain Time Seen by Provider: 10/08/18 06:03 Source: patient, RN notes reviewed Mode of arrival: wheelchair Limitations: no limitations - History of Present Illness Initial Comments: This a 48-year-old male presents emergency Department chief complaint chest pain. Patient states symptoms started just prior arrival. He did have some associated shortness of breath that has resolved. He states the pains actually resolved. Patient states that her prior CVA and does have a history of COPD. Denies any cardiac history including hypertension, hyperlipidemia, diabetes. Patient states that he takes medications for anxiety and depression. Patient denies any recent URI symptoms including fevers chills. Patient denies any back pain, nausea, vomiting. - Related Data Home Medications Medication Instructions Recorded Confirmed clonazePAM [KlonoPIN] 0.5 mg PO BID 09/01/18 10/08/18 Previous Rx's Medication Instructions Recorded Escitalopram [Lexapro] 10 mg PO DAILY #30 tab 01/16/18 Albuterol Inhaler [Ventolin Hfa 1 - 2 puff INHALATION RT-Q6H PRN 03/19/18 Inhaler] #1 inhaler Allergies Allergy/AdvReac Type Severity Reaction Status Date / Time horseradish Allergy Anaphylaxis Verified 09/01/18 01:29 shellfish derived [Shellfish] Allergy Anaphylaxis Verified 09/01/18 01:29 venom-wasp Allergy Anaphylaxis Verified 09/01/18 01:29 Review of Systems ROS Statement: Those systems with pertinent positive or pertinent negative responses have been documented in the HPI. ROS Other: All systems not noted in ROS Statement are negative. EKG Findings - EKG Comments: EKG Findings:: EKG performed at 5:24 normal sinus rhythm with a rate of 79 DE 128 QRS 86 QT/QTC 370/[address] elevation or depression. 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, cerebral aneurysm stable, migraines, Last Myocardial Infarction Date:: History of Any Multi-Drug Resistant Organisms: None Reported Past Surgical History: Heart Catheterization Past Anesthesia/Blood Transfusion Reactions: Unable to Obtain Additional Past Anesthesia/Blood Transfusion Reaction / Comment(s): Pt has never had general/spinal anesthesia Past Psychological History: Anxiety, Bipolar, Depression, Schizoaffective Disorder, Schizophrenia Smoking Status: Current every day smoker Past Alcohol Use History: Occasional Past Drug Use History: Marijuana - Past Family History Mother Family Medical History: CVA/TIA Father Additional Family Medical History / Comment(s): Emphesema General Exam Limitations: no limitations General appearance: alert, in no apparent distress Head exam: Present: atraumatic, normocephalic, normal inspection Eye exam: Present: normal appearance, PERRL, EOMI. Absent: scleral icterus, conjunctival injection, periorbital swelling ENT exam: Present: normal exam, normal oropharynx, mucous membranes moist Neck exam: Present: normal inspection, full ROM. Absent: tenderness, meningismus, lymphadenopathy Respiratory exam: Present: normal lung sounds bilaterally. Absent: respiratory distress, wheezes, rales, rhonchi, stridor Cardiovascular Exam: Present: regular rate, normal rhythm, normal heart sounds. Absent: systolic murmur, diastolic murmur, rubs, gallop, clicks GI/Abdominal exam: Present: soft, normal bowel sounds. Absent: distended, tenderness, guarding, rebound, rigid Back exam: Absent: CVA tenderness (R), CVA tenderness (L) Neurological exam: Present: alert Skin exam: Present: warm, dry, intact, normal color. Absent: rash Course Vital Signs 10/08/18 10/08/18 05:13 05:45 Temperature 97.9 F Pulse Rate 92 79 Respiratory 20 16 Rate Blood Pressure 118/77 O2 Sat by Pulse 97 Oximetry Chest Pain [facility] 48-year-[facility] male presented for chest pain. Patient has a negative troponin, EKG at this time. Patiently admitted for cardiac ablation, repeat troponin was started on heparin. Disposition Clinical Impression: Chest pain Disposition: ADMITTED IP TO THIS HOSP Condition: Stable Referrals: Guy Campos MD [Primary Care Provider] - 1-2 days
[2018-10-08 06:25] LABS: Basophils # (A) 0.1 k/uL (0-0.2); Basophils % (A) 1 %; Eosinophils # (A) 0.4 k/uL (0-0.7); Eosinophils % (A) 4 %; HGB 12.2 gm/dL (13.0-17.5); Lymphocytes # (A) 2.5 k/uL (1.0-4.8); Lymphocytes % (A) 23 %; MCHC 32.9 g/dL (31.0-37.0); MCV 88.3 fL (80.0-100.0); Mean Platelet Volume 6.6; Monocytes # (A) 0.7 k/uL (0-1.0); Monocytes % (A) 7 %; Neutrophils % (A) 64 %; Platelet Count 306 k/uL (150-450); RBC 4.19 m/uL (4.30-5.90); WBC 10.9 k/uL (3.8-10.6)
[2018-10-08 06:33] LABS: INR 0.9 (<1.2); Partial Thromboplastin Time 24.5 sec (22.0-30.0); Prothrombin Time 9.6 sec (9.0-12.0)
[2018-10-08 06:39] LABS: ALT 28 U/L (21-72); AST 21 U/L (17-59); Albumin 3.8 g/dL (3.5-5.0); Alkaline Phosphatase 113 U/L (38-126); Anion Gap 7 mmol/L; Blood Urea Nitrogen 13 mg/dL (9-20); Carbon Dioxide 25 mmol/L (22-30); Chloride 105 mmol/L (98-107); Glucose 96 mg/dL (74-99); Magnesium 1.9 mg/dL (1.6-2.3); Potassium 4.3 mmol/L (3.5-5.1); Sodium 137 mmol/L (137-145); Total Bilirubin 0.3 mg/dL (0.2-1.3); Total Protein 6.4 g/dL (6.3-8.2)
[2018-10-08 06:50] LABS: Creatine Kinase 78 U/L (55-170)
[2018-10-08 07:03] LABS: Creatine Kinase MB 0.6 ng/mL (0.0-2.4); Troponin I <0.012 ng/mL (0.000-0.034)
[2018-10-08] MEDS ORDERED: NITROGLYCERIN SL TABS 0.4 MG TAB SUBLINGUAL PRN (07:16)
[2018-10-08] MEDS ORDERED: ASPIRIN 81 MG PO STA (07:16)
[2018-10-08] MEDS ORDERED: HEPARIN SODIUM,PORCINE 5,000 UNIT/ML 1 ML VIAL IV ONE (07:16)
[2018-10-08] MEDS ORDERED: HEPARIN SOD,PORK IN 0.45% NACL 25,000 UNIT in 0.45% NACL 1 250ML.BAG IV SCH (07:30)
[2018-10-08] MEDS ORDERED: CAFFEINE CITRATE 60 MG/3 ML VIAL IV PRN (10:40)
--- NOTE | 2018-10-08 10:41 | P.CRDCN ---
History of Present Illness History of present illness: this is a pleasant 48-year-old male past medical history significant forCOPD, CVA, chronic nicotine dependence, anxiety, bipolar, depression and schizoaffective disorder. He denies history of coronary artery disease, hypertension, dyslipidemia or diabetes mellitus. 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 We have been asked to see him in consultation for symptoms of chest pain. He states yesterday while he was walking outside he felt a very sharp discomfort and left precordial region that lasted for approximately 2 minutes. There is no specific aggravating factor. The pain ultimately went away on its own while he was still walking with no specific alleviating factor. He states he felt mildly short of breath while he was having this discomfort but when the pain resolved shortness of breath also resolved. He denies associated dizziness, nausea, vomiting or palpitations. The pain has not recurred since admission to the hospital. EKG reveals sinus mechanism with no acute ST or T wave abnormalities noted. Chest x-ray is negative for an acute cardiopulmonary process. Laboratory data reviewed, cardiac enzymes negative 1, WBC 10.9, hemoglobin 12.2 , platelets 306, sodium 137, potassium 4.3, magnesium 1.9, creatinine 0.83. He takes no daily cardiac medications. Most recent stress test performed November 2016 with a stress echocardiogram which was negative for stress-induced cardiac ischemia although he did not reach his target heart rate. He exercised for 10 minutes. Most recent echocardiogram obtained January 2018 reveals preserved left ventricular systolic function with ejection fraction greater than 55%. At the time of my exam: CONSTITUTIONAL: Denies fever. Denies chills. EYES: Denies blurred vision. Denies vision changes. Denies eye pain. EARS, NOSE, MOUTH & THROAT: Denies headache. Denies sore throat. Denies ear pain. CARDIOVASCULAR: Denies chest pain. Denies shortness of breath. Denies orthopnea. Denies PND. Denies palpitations. RESPIRATORY: Denies cough. GASTROINTESTINAL: Denies abdominal pain. Denies diarrhea. Denies constipation. Denies nausea. Denies vomiting. MUSCULOSKELETAL: Denies myalgias. INTEGUMENTARY: Denies pruitis. Denies rash. NEUROLOGIC: Denies numbness. Denies tingling. Denies weakness. PSYCHIATRIC: Denies anxiety. Denies depression. ENDOCRINE: Denies fatigue. Denies weight change. Denies polydipsia. Denies polyurina. GENITOURINARY: Denies burning, hematuria or urgency with micturation. HEMATOLOGIC: Denies history of anemia. Denies bleeding. Blood pressure 111/64 heart rate 65 afebrile maintaining oxygen saturation on room air. GENERAL: This is a 48-year-old male in no apparent distress at the time of my examination. HEENT: Head is atraumatic, normocephalic. Pupils are equal, round. Sclerae anicteric. Conjunctivae are clear. Mucous membranes of the mouth are moist. Neck is supple. There is no jugular venous distention. No carotid bruit is heard. LUNGS: Clear to auscultation no wheezes, rales or rhonchi. No chest wall tenderness is noted on palpation or with deep breathing. HEART: Regular rate and rhythm without murmurs, rubs or gallops. S1 and S2 heard. ABDOMEN: Soft, nontender. Bowel sounds are heard. No organomegaly noted. EXTREMITIES: No evidence of peripheral edema and no calf tenderness noted. VASCULAR: Radial and dorsalis pedis pulses palpated, no evidence of clubbing. NEUROLOGIC: Patient is awake, alert and oriented x3. ASSESSMENT Chest pain, atypical. Chronic nicotine dependence History of bipolar, depression, anxiety and schizoaffective disorder PLAN Continue to obtain serial cardiac enzymes to rule out an acute coronary event. If second set of troponinheparin infusion may be discontinued and we will proceed with a Lexiscan stress test tomorrow morning. If abnormality noted and troponin we will consider coronary angiography. Smoking cessation recommended. Thank you kindly for this consultation. Nurse Practitioner note has been reviewed, I agree with a documented findings and plan of care. Patient was seen and examined. 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, cerebral aneurysm stable, migraines, Last Myocardial Infarction Date:: History of Any Multi-Drug Resistant Organisms: None Reported Past Surgical History: Heart Catheterization Past Anesthesia/Blood Transfusion Reactions: Unable to Obtain Additional Past Anesthesia/Blood Transfusion Reaction / Comment(s): Pt has never had general/spinal anesthesia Past Psychological History: Anxiety, Bipolar, Depression, Schizoaffective Disorder, Schizophrenia Smoking Status: Current every day smoker Past Alcohol Use History: Occasional Past Drug Use History: Marijuana - Past Family History Mother Family Medical History: CVA/TIA Father Additional Family Medical History / Comment(s): Emphesema Medications and Allergies Home Medications Medication Instructions Recorded Confirmed Type Escitalopram [Lexapro] 10 mg PO DAILY #30 tab 01/16/18 10/08/18 Rx clonazePAM [KlonoPIN] 0.5 mg PO BID 09/01/18 10/08/18 History Allergies Allergy/AdvReac Type Severity Reaction Status Date / Time horseradish Allergy Anaphylaxis Verified 10/08/18 08:28 shellfish derived [Shellfish] Allergy Anaphylaxis Verified 10/08/18 08:28 venom-wasp Allergy Anaphylaxis Verified 10/08/18 08:28 Physical Exam Vitals: Vital Signs Temp Pulse Resp BP Pulse Ox 10/08/18 07:42 97.7 F 65 18 111/64 95 10/08/18 05:45 79 16 10/08/18 05:13 97.9 F 92 20 118/77 97 Intake and Output 10/07/18 10/08/18 10/08/18 22:59 06:59 14:59 Other: Weight 63.503 kg Results 10/08/18 05:40 10/08/18 05:40 Cardiac Enzymes 10/08/18 10/08/18 Range/Units 05:40 05:40 AST 21 (17-59) U/L CK-MB (CK-2) 0.6 (0.0-2.4) ng/mL Troponin I <0.012 (0.000-0.034) ng/mL Coagulation 10/08/18 Range/Units 05:40 PT 9.6 (9.0-12.0) sec APTT 24.5 (22.0-30.0) sec CBC 10/08/18 Range/Units 05:40 WBC 10.9 H (3.8-10.6) k/uL RBC 4.19 L (4.30-5.90) m/uL Hgb 12.2 L (13.0-17.5) gm/dL Hct 37.0 L (39.0-53.0) % Plt Count 306 (150-450) k/uL Comprehensive Metabolic Panel 10/08/18 Range/Units 05:40 Sodium 137 (137-145) mmol/L Potassium 4.3 (3.5-5.1) mmol/L Chloride 105 (98-107) mmol/L Carbon Dioxide 25 (22-30) mmol/L BUN 13 (9-20) mg/dL Creatinine 0.83 (0.66-1.25) mg/dL Glucose 96 (74-99) mg/dL Calcium 9.0 (8.4-10.2) mg/dL AST 21 (17-59) U/L ALT 28 (21-72) U/L Alkaline Phosphatase 113 (38-126) U/L Total Protein 6.4 (6.3-8.2) g/dL Albumin 3.8 (3.5-5.0) g/dL Current Medications Generic Name Dose Route Start Last Admin Trade Name Freq PRN Reason Stop Dose Admin Aspirin 325 mg 10/09/18 09:00 Aspirin PO DAILY HANNAH Heparin Sodium/Sodium Chloride 250 mls @ 7.62 mls/hr 10/08/18 07:30 10/08/18 07:37 25,000 unit/ Sodium Chloride IV 12 units/kg/hr .Q24H HANNHA 7.62 mls/hr Administration Protocol 12 UNITS/KG/HR Nitroglycerin 0.4 mg 10/08/18 07:16 Nitrostat SUBLINGUAL Q5M PRN Chest Pain Intake and Output 10/07/18 10/08/18 10/08/18 22:59 06:59 14:59 Other: Weight 63.503 kg 10/08/18 05:40 10/08/18 05:40
[2018-10-08] MEDS ORDERED: TEMAZEPAM 15 MG CAP PO PRN (11:42)
[2018-10-08] MEDS ORDERED: ALPRAZolam 0.25 MG TAB PO PRN (11:42)
[2018-10-08] MEDS: clonazePAM 0.5 MG TAB PO SCH ×2 (12:47→20:54)
[2018-10-08] MEDS: NICOTINE 14MG/24HR PATCH TRANSDERM SCH (12:47)
[2018-10-08] MEDS: ESCITALOPRAM 10 MG TAB PO SCH (12:47)
[2018-10-08] MEDS: PANTOPRAZOLE 40 MG TABLET PO SCH (12:47)
[2018-10-08 13:50] LABS: Creatine Kinase 64 U/L (55-170)
[2018-10-08 14:05] LABS: Creatine Kinase MB 0.5 ng/mL (0.0-2.4); Troponin I <0.012 ng/mL (0.000-0.034)
[2018-10-08 16:09] VITALS: BMI 18.4
[2018-10-08] MEDS ORDERED: IPRATROPIUM-ALBUTEROL 3 ML NEB INHALATION PRN (18:21)
[2018-10-08] MEDS: IPRATROPIUM-ALBUTEROL 3 ML NEB INHALATION SCH (18:57)
[2018-10-08] MEDS ORDERED: LEVOFLOXACIN 500MG-D5W PMX 500 MG in DEXTROSE/WATER 1 100ML.BAG IVPB SCH (19:00)
[2018-10-08 19:06] LABS: Creatine Kinase 61 U/L (55-170)
[2018-10-08 19:20] LABS: Creatine Kinase MB 0.7 ng/mL (0.0-2.4); Troponin I <0.012 ng/mL (0.000-0.034)
--- NOTE | 2018-10-08 21:56 | HP ---
HISTORY AND PHYSICAL DATE OF SERVICE: 10/08/2018 CHIEF COMPLAINT: Chest pain. HISTORY OF PRESENT ILLNESS: This 48-year-old gentleman with a past medical history of multiple medical problems including history of asthma, COPD, CVA, TIA, seizure disorder, anxiety, bipolar, depression, schizoaffective disorder, being followed by Dr. Campos in the outpatient setting, is complaining of chest pain. The pain is felt mostly in the anterior part and left-side of the chest, sharp, also some shortness of breath. The patient came to [facility] and was admitted for further evaluation and treatment. He was having palpitations. No history of radiation of the pain elsewhere. Initial troponins are negative. White count was slightly elevated. Initial EKG showed normal sinus rhythm. The patient was seen by Cardiology who recommend a stress test in the morning. There is no history of fevers, rigors or chills. PAST MEDICAL HEALTH: Asthma, COPD, CVA, TIA, anxiety, bipolar depression, schizoaffective disorder. MEDICATIONS: Home medications: 1. Klonopin 0.5 mg b.i.d. 2. Lexapro 10 mg daily. ALLERGIES: HORSERADISH, SHELLFISH, . FAMILY HISTORY: History of CVA, TIA, emphysema. SOCIAL HISTORY: History of smoking. History of THC. REVIEW OF SYSTEMS: ENT: No diminished vision or hearing. CARDIOVASCULAR: S1 and S2 muffled. RESPIRATORY: Breath sounds diminished at the bases. GI: No nausea. : No dysuria. NERVOUS SYSTEM: No numbness or weakness. ALLERGY: No asthma or hayfever. MUSCULOSKELETAL: As mentioned earlier. HEMATOLOGY: No history of anemia. ENDOCRINE: No history of diabetes or hypothyroidism. CONSTITUTIONAL: Negative. DERMATOLOGY: Negative. RHEUMATOID: As mentioned. PSYCH: As mentioned earlier. PHYSICAL EXAM: Patient is alert, oriented x3. Pulse is 57, blood pressure 105/60, respirations 16, temperature is 97.7, pulse ox 98% on room air. HEENT: Conjunctivae normal. Oral mucosa moist. NECK: No jugular venous distention. No lymph node enlargement. CARDIOVASCULAR: S1 and S2 muffled. LUNGS: Breath sounds diminished at the bases. Few scattered rhonchi. No crackles. ABDOMEN: Soft, nontender. No mass palpable. LEGS: No edema. NERVOUS SYSTEM: Higher function as mentioned. Moves all four limbs. No focal deficits. LYMPHATICS: No lymph nodes palpable in the neck, axillae or groin. SKIN: No rashes. JOINTS: No acute deformities or arthropathy. LABS: WBC 10.2, hemoglobin 12.2. EKG noted. Chest x-ray personally reviewed, showed increased bronchovascular markings. ASSESSMENT: 1. Chest pain possible unstable angina. 2. History of history of nicotine dependence. 3. History of asthma, chronic obstructive pulmonary disease and tracheobronchitis. 4. Cerebrovascular accident/transient ischemic attack. 5. History of seizure disorder. 6. History of cerebral aneurysm, stable. 7. History of anxiety, bipolar, depression, schizoaffective disorder and schizophrenia. 8. History of THC. RECOMMENDATIONS AND DISCUSSION: This 48-year-old gentleman presented with multiple medical problems. We will monitor the patient closely. Continue the current management and symptomatic treatment. Rule out myocardial infarction. Recommend bronchodilators. Acute protocol. Cardiology consultation, possible stress test. Repeat labs. Prognosis guarded because of multiple complex medical issues. Further recommendations to follow. MMODL / IJN: [id number] / MTDD
[2018-10-09] MEDS: PANTOPRAZOLE 40 MG TABLET PO SCH (06:20)
[2018-10-09 06:34] LABS: Appearance,Urine Clear (Clear); Bilirubin,Urine Negative (Negative); Blood,Urine Negative (Negative); Color,Urine Light Yellow; Glucose,Urine (UA) Negative (Negative); Ketones,Urine Negative (Negative); Leukocyte Esterase,Urine Negative (Negative); Nitrite,Urine Negative (Negative); PH, Urine 5.5 (5.0-8.0); Protein,Urine Negative (Negative); Specific Gravity,Urine 1.007 (1.001-1.035); Urobilinogen,Urine <2.0 mg/dL (<2.0)
[2018-10-09 06:49] LABS: Amphetamine Screen,Urine Not Detected (NotDetected); Barbiturate Screen,Urine Not Detected (NotDetected); Benzodiazepines Screen,Urine Not Detected (NotDetected); Cocaine Screen,Urine Not Detected (NotDetected); Methadone Screen, Urine Not Detected (NotDetected); Opiate Screen,Urine Not Detected (NotDetected); Oxycodone Screen, Urine Not Detected (NotDetected); Phencyclidine Screen,Urine Not Detected (NotDetected); Tricyclic Antidepressant,Urine Not Detected (NotDetected); Urn Cannabinoid Scrn Detected (NotDetected)
[2018-10-09 07:20] VITALS: RESP 18
[2018-10-09] MEDS: IPRATROPIUM-ALBUTEROL 3 ML NEB INHALATION SCH ×2 (08:26→12:52)
[2018-10-09] MEDS ORDERED: ASPIRIN 325 MG TAB PO SCH (09:00)
[2018-10-09] MEDS ORDERED: REGADENOSON 0.4 MG/5 ML SYRINGE IV ONE (09:00)
[2018-10-09 10:04] LABS: Basophils # (A) 0.1 k/uL (0-0.2); Basophils % (A) 1 %; Eosinophils # (A) 0.4 k/uL (0-0.7); Eosinophils % (A) 4 %; HCT 40.2 % (39.0-53.0); HGB 12.7 gm/dL (13.0-17.5); Hypochromasia Slight; Lymphocytes # (A) 2.1 k/uL (1.0-4.8); Lymphocytes % (A) 25 %; MCH 28.5 pg (25.0-35.0); MCHC 31.5 g/dL (31.0-37.0); MCV 90.5 fL (80.0-100.0); Monocytes # (A) 0.4 k/uL (0-1.0); Monocytes % (A) 5 %; Neutrophils # (A) 5.3 k/uL (1.3-7.7); Neutrophils % (A) 63 %; Platelet Count 295 k/uL (150-450); RBC 4.44 m/uL (4.30-5.90); RDW 14.8 % (11.5-15.5); WBC 8.5 k/uL (3.8-10.6)
[2018-10-09 10:23] LABS: Anion Gap 8 mmol/L; Blood Urea Nitrogen 14 mg/dL (9-20); Calcium 9.2 mg/dL (8.4-10.2); Carbon Dioxide 25 mmol/L (22-30); Chloride 108 mmol/L (98-107); Cholesterol 222 mg/dL (<200); Glucose 104 mg/dL (74-99); HDL Cholesterol 49 mg/dL (40-60); LDL Cholesterol,Calculated 162 mg/dL (0-99); Potassium 4.5 mmol/L (3.5-5.1); Sodium 141 mmol/L (137-145); Triglycerides 53 mg/dL (<150)
[2018-10-09] MEDS: NICOTINE 14MG/24HR PATCH TRANSDERM SCH (11:27)
[2018-10-09] MEDS: clonazePAM 0.5 MG TAB PO SCH (11:27)
[2018-10-09] MEDS: ESCITALOPRAM 10 MG TAB PO SCH (11:27)
[2018-10-09 11:33] VITALS: BP 104/69; PULSE 72; TEMP 97.8
--- NOTE | 2018-10-09 11:55 | NM ---
EXAMINATION TYPE: NM stress lexiscan cardiolite DATE OF EXAM: 10/09/2018 COMPARISON: NONE HISTORY: 48-year-old male with chest pain, difficulty breathing, 33-60 6 pack-year history of smoking , and COPD. TECHNIQUE: After the intravenous administration of 9.97 mCi Tc 99m Sestamibi - Cardiolite resting SP ECT images acquired 45 minutes post injection. The patient received 0.4mg Lexiscan, 25.7 mCi Tc 99m Sestamibi - Stress images obtained [address] injection FINDINGS: Review of stress and rest SPECT images demonstrates focal perfusion defect along the inferior apical wall which becomes accentuated on stress imaging. However, gated analysis shows overall normal wall m otion with an estimated left ventricular ejection fraction of 71 %. Polar maps do not detect any reve rsibility. TID is calculated at 1.13, within normal limits. IMPRESSION: Perfusion defect along the mid to apical inferior wall becomes accentuated on stress images. However, as overall wall motion appears normal and computer-generated polar maps do not detect any reversibil ity, this is equivocal for a small area of old infarct with oriana-infarct ischemia VERSUS diaphragmati c attenuation artifact. Further clinical correlation and workup recommended.
--- NOTE | 2018-10-09 13:34 | EST ---
EXERCISE STRESS DATE OF SERVICE: 10/09/2018 AGE: 48 SEX: Male HT: 6'2-1/2" WT: 141 pounds PROTOCOL: Lexiscan Cardiolite STAGE: DURATION OF EXERCISE: HEART RATE REST: 65 BLOOD PRESSURE REST: 99/53 MAXIMUM HEART RATE ACHIEVED: 86 MAXIMUM BLOOD PRESSURE: 106/54 85% MPHR: 145 100% MPHR: 171 METS: INDICATIONS: Chest pain. CLINICAL INFORMATION: Lexiscan nuclear study was performed. Peak heart rate of 86 was achieved. Maximum blood pressure of 106/54 mmHg was noted. The resting EKG shows normal sinus rhythm with normal ID interval and QRS duration and normal ST-T waves. No ST-segment depression suggestive of ischemia is noted. The results of the nuclear study will follow. ENRICO / JOANNA: [id number] /
--- NOTE | 2018-10-09 13:50 | P.PN ---
Subjective this is a pleasant 48-year-old male past medical history significant forCOPD, CVA, chronic nicotine dependence, anxiety, bipolar, depression and schizoaffective disorder. He denies history of coronary artery disease, hypertension, dyslipidemia or diabetes mellitus. He does not follow with a liberal arts dean for any reason. He is seen and examined sitting up in bed in no acute distress. He denies any further symptoms of chest pain or shortness of breath. He also denies dizziness or palpitations. Cardiac enzymes are negative x3. Blood pressure 104/69 heart rate 72 afebrile and maintaining oxygen saturation on room air. GENERAL: This is a 48-year-old male in no apparent distress at the time of my examination. HEENT: Head is atraumatic, normocephalic. Pupils are equal, round. Sclerae anicteric. Conjunctivae are clear. Mucous membranes of the mouth are moist. Neck is supple. There is no jugular venous distention. No carotid bruit is heard. LUNGS: Clear to auscultation no wheezes, rales or rhonchi. No chest wall tenderness is noted on palpation or with deep breathing. HEART: Regular rate and rhythm without murmurs, rubs or gallops. S1 and S2 heard. EXTREMITIES: No evidence of peripheral edema and no calf tenderness noted. ASSESSMENT Chest pain, atypical. Chronic nicotine dependence History of bipolar, depression, anxiety and schizoaffective disorder PLAN Stress test images were reviewed by Dr. Hahn and thought to be related to diaphragmatic attenuation. Stable for discharge from a cardiac perspective. Follow up with Dr. Pearce in the office in 2-3 weeks. Nurse Practitioner note has been reviewed, I agree with a documented findings and plan of care. Patient was seen and examined. Objective - Vital Signs Vital signs: Vital Signs Temp 97.8 F 10/09/18 11:32 Pulse 72 10/09/18 11:32 Resp 18 10/09/18 12:00 BP 104/69 10/09/18 11:32 Pulse Ox 98 10/09/18 11:32 Intake & Output 10/08/18 10/09/18 10/09/18 18:59 06:59 18:59 Intake Total 340 Balance 340 Weight 63.503 kg Intake: Oral 340 Other: Voiding Method Toilet Toilet # Voids 1 - Labs CBC & Chem 7: 10/09/18 09:03 10/09/18 09:03 Labs: Abnormal Lab Results - Last 24 Hours (Table) 10/09/18 10/09/18 10/09/18 Range/Units 06:24 09:03 09:03 Hgb 12.7 L (13.0-17.5) gm/dL Chloride 108 H (98-107) mmol/L Glucose 104 H (74-99) mg/dL Cholesterol 222 H (<200) mg/dL LDL Cholesterol, Calc 162 H (0-99) mg/dL U Marijuana (THC) Screen Detected H (NotDetected)
--- NOTE | 2018-10-10 05:28 | DS ---
DISCHARGE SUMMARY DATE OF SERVICE: 10/09/2018 FINAL DIAGNOSES: 1. Chest pain possibly musculoskeletal with a negative stress test. 2. History of nicotine dependence. 3. History of asthma, chronic obstructive pulmonary disease and tracheobronchitis. 4. Cerebrovascular accident, transient ischemic attack. 5. History of seizure disorder. 6. History of of cerebral aneurysm, stable. 7. History of anxiety, bipolar, depression, schizoaffective disorder, schizophrenia. 8. History of THC. DISCHARGE DISPOSITION: The patient will be discharged in stable condition with guarded prognosis. HISTORY OF PRESENT ILLNESS: This 48-year-old gentleman with a past medical history of multiple medical problems admitted with chest pain, myocardial infarction ruled out. Cardiology performed a stress test, which was negative. Patient improved significantly. On exam, vitals are stable. CARDIOVASCULAR: S1, S2 muffled. ABDOMEN: Soft. NERVOUS SYSTEM: No focal deficits. RESPIRATORY: A few rhonchi. WBC 8.5. Cholesterol is 222, LDL is 162. DISCHARGE ADVICE AND MEDICATIONS: 1. Diet is cardiac, . 2. Activity limited until followup. 3. Follow up with Dr. Campos in 2 to 3 days. 4. Follow up with cardiology as recommended. Medications are: 1. Klonopin 0.5 mg p.o. b.i.d. 2. ProAir q.i.d. and p.r.n. 3. Lexapro 10 mg p.o. daily. 4. Levaquin 500 mg p.o. daily. 5. Habitrol 14 daily. 6. Lipitor 10 mg p.o. q.h.s. Once again, the patient will be discharged in stable condition with guarded prognosis. MMODL / IJN: [id number] / MTDD
== END 2018-10-09 12:52 | disposition home or self-care (01) ==
LOC: EC 05:12 → 1SOBS 07:14
PROVIDERS: ADMIT Hospitalist; ATTEND Hospitalist
DX: R07.89 Other chest pain (principal); J40 Bronchitis, not specified as acute or chronic; J44.9 Chronic obstructive pulmonary disease, unspecified; R00.2 Palpitations; G43.909 Migraine, unspecified, not intractable, without status migrainosus; G40.909 Epilepsy, unspecified, not intractable, without status epilepticus; I67.1 Cerebral aneurysm, nonruptured; F31.30 Bipolar disorder, current episode depressed, mild or moderate severity, unspecified; F41.9 Anxiety disorder, unspecified; F25.9 Schizoaffective disorder, unspecified; F17.200 Nicotine dependence, unspecified, uncomplicated; Z79.899 Other long term (current) drug therapy; Z91.038 Other insect allergy status; Z91.013 Allergy to seafood; Z91.018 Allergy to other foods; Z86.69 Personal history of other diseases of the nervous system and sense organs; Z86.73 Personal history of transient ischemic attack (TIA), and cerebral infarction without residual deficits; Z82.5 Family history of asthma and other chronic lower respiratory diseases; Z82.3 Family history of stroke
CPT/HCPCS: 96366 ×3; 96367; 96375; 96376; 96365; 99285; 36415; 94640 ×2; 93005; 93017; 80061; 80053; 80048; 82550; 82553; 83735; 84484; 85025 ×2; 85610; 85730; 81003; 80306; 71046; 78452; G0378 ×2; A9500; S4990 ×2; J1644 ×2; J1956; J2785

== ENCOUNTER 2019-01-12 21:14 | Observation (INO) | payer OTHER ==
--- NOTE | 2019-01-12 21:58 | ED ---
Chest Pain HPI - General Chief Complaint: Chest Pain Stated Complaint: Chest pain Time Seen by Provider: 01/12/19 21:35 Source: patient Mode of arrival: wheelchair Limitations: no limitations - History of Present Illness Initial Comments: This patient is a 48-year-old man presenting to be evaluated for chest pain. He states that the pain had come on about an hour ago. He had been walking at the time. He indicates that it is an aching or pressure feeling. The pain is intermittent. It comes on and lasts for he states about 2 minutes when it is th ere. He has not noted worsening or relieving factors other than he states relaxing seems to help. There were no associated symptoms. MD Complaint: chest pain Onset/Timin -: hour(s) Onset: other (While walking) Pain Location: left chest Pain Radiation: none Severity: moderate Quality: other (Pressure) Consistency: intermittent Improves With: nothing Worsens With: nothing Treatments Prior to Arrival: none - Related Data Home Medications Medication Instructions Recorded Confirmed Divalproex ER [Depakote ER] 1,000 mg PO HS 01/12/19 01/12/19 QUEtiapine [SEROquel] 200 mg PO HS 01/12/19 01/12/19 hydrOXYzine PAMOATE [Vistaril] 50 mg PO BID 01/12/19 01/12/19 hydrOXYzine PAMOATE [Vistaril] 100 mg PO HS 01/12/19 01/12/19 Allergies Allergy/AdvReac Type Severity Reaction Status Date / Time horseradish Allergy Anaphylaxis Verified 01/12/19 21:54 shellfish derived [Shellfish] Allergy Anaphylaxis Verified 01/12/19 21:54 venom-wasp Allergy Anaphylaxis Verified 01/12/19 21:54 Review of Systems ROS Statement: Those systems with pertinent positive or pertinent negative responses have been documented in the HPI. ROS Other: All systems not noted in ROS Statement are negative. Constitutional: Denies: fever, chills Respiratory: Denies: cough, dyspnea Cardiovascular: Reports: chest pain. Denies: palpitations, edema, syncope Gastrointestinal: Denies: abdominal pain, nausea, vomiting Genitourinary: Denies: dysuria, hematuria Musculoskeletal: Denies: back pain Skin: Denies: rash Neurological: Denies: headache, weakness, numbness EKG Findings - EKG Results: EKG: interpreted by ERMD, WNL, sinus rhythm (Rate 82 bpm), normal axis, normal QRS, normal ST/T, no acute changes - RI, Pacemaker, Normal: Normal tracing: normal tracing 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, cerebral aneurysm stable, migraines, pt unsure about a RI Last Myocardial Infarction Date:: History of Any Multi-Drug Resistant Organisms: None Reported Past Surgical History: Heart Catheterization Additional Past Surgical History / Comment(s): pt state no heart cath- previous health documentation shows he has had one. Past Anesthesia/Blood Transfusion Reactions: Unable to Obtain Additional Past Anesthesia/Blood Transfusion Reaction / Comment(s): Pt has never had general/spinal anesthesia Past Psychological History: Anxiety, Bipolar, Depression, Schizoaffective Disorder, Schizophrenia Smoking Status: Current every day smoker Past Alcohol Use History: Occasional Past Drug Use History: Marijuana - Past Family History Mother Family Medical History: CVA/TIA Father Additional Family Medical History / Comment(s): Emphesema General Exam Limitations: no limitations General appearance: alert, in no apparent distress Head exam: Present: atraumatic, normocephalic Eye exam: Present: normal appearance. Absent: scleral icterus, conjunctival injection ENT exam: Present: normal oropharynx Neck exam: Present: normal inspection, full ROM Respiratory exam: Present: normal lung sounds bilaterally. Absent: respiratory distress, wheezes, rales, rhonchi, stridor, chest wall tenderness Cardiovascular Exam: Present: regular rate, normal rhythm, normal heart sounds. Absent: systolic murmur, diastolic murmur, rubs, gallop GI/Abdominal exam: Present: soft. Absent: distended, tenderness, guarding, rebound, mass Extremities exam: Present: normal inspection, normal capillary refill. Absent: pedal edema, calf tenderness Back exam: Present: normal inspection. Absent: CVA tenderness (R), CVA tenderness (L) Neurological exam: Present: alert Skin exam: Present: warm, dry, intact, normal color. Absent: rash Course Vital Signs 01/12/19 01/12/19 01/12/19 21:21 21:40 21:50 Temperature 97.8 F Pulse Rate 84 78 82 Respiratory 16 Rate Blood Pressure 119/67 117/83 O2 Sat by Pulse 98 97 96 Oximetry 01/12/19 01/12/19 01/12/19 22:00 22:10 22:20 Temperature Pulse Rate 84 78 86 Respiratory Rate Blood Pressure 117/83 123/85 123/85 O2 Sat by Pulse 97 97 97 Oximetry 01/12/19 01/12/19 01/12/19 22:30 22:40 22:50 Temperature Pulse Rate 82 81 84 Respiratory Rate Blood Pressure 123/85 113/81 113/81 O2 Sat by Pulse 97 98 95 Oximetry Chest Pain MDM - MDM This patient's 48-year-old man with episode of chest pain. He did have recent stress test that had some equivocal findings, and in light of that patient will be kept for serial cardiac enzymes and telemetry monitoring. His initial workup here is negative and he is not having pain at this time. Disposition Clinical Impression: Chest pain Disposition: ADMITTED IP TO THIS HOSP Condition: Fair Is patient prescribed a controlled substance at d/c from ED?: No Referrals: Flash Schofield MD [Primary Care Provider] - 1-2 days
--- NOTE | 2019-01-12 22:06 | XR ---
EXAMINATION: XR chest 2V DATE AND TIME: 01/12/2019 9:55 PM CLINICAL INDICATION: PHH; Chest Pain TECHNIQUE: Departmental protocol COMPARISON: 10/08/2018 FINDINGS: The lungs are clear. The pleural spaces are negative. The cardiac silhouette is not enlarged. The remainder of the mediastinal silhouette is unremarkable. The skeletal structures and soft tissues are negative for acute findings. IMPRESSION: NO ACUTE PROCESS.
[2019-01-12 22:18] LABS: Basophils # (A) 0.1 k/uL (0-0.2); Basophils % (A) 1 %; Eosinophils # (A) 0.3 k/uL (0-0.7); Eosinophils % (A) 3 %; HCT 35.3 % (39.0-53.0); HGB 11.3 gm/dL (13.0-17.5); Lymphocytes # (A) 2.7 k/uL (1.0-4.8); Lymphocytes % (A) 29 %; MCH 27.4 pg (25.0-35.0); MCV 85.6 fL (80.0-100.0); Mean Platelet Volume 6.6; Monocytes # (A) 0.5 k/uL (0-1.0); Monocytes % (A) 6 %; Neutrophils # (A) 5.7 k/uL (1.3-7.7); Neutrophils % (A) 60 %; Platelet Count 297 k/uL (150-450); RBC 4.13 m/uL (4.30-5.90); RDW 15.4 % (11.5-15.5); WBC 9.5 k/uL (3.8-10.6)
[2019-01-12 22:30] LABS: ALT 24 U/L (21-72); AST 23 U/L (17-59); Albumin 3.9 g/dL (3.5-5.0); Alkaline Phosphatase 87 U/L (38-126); Anion Gap 9 mmol/L; Blood Urea Nitrogen 15 mg/dL (9-20); Calcium 9.2 mg/dL (8.4-10.2); Carbon Dioxide 27 mmol/L (22-30); Chloride 105 mmol/L (98-107); Glucose 120 mg/dL (74-99); Magnesium 1.8 mg/dL (1.6-2.3); Potassium 4.5 mmol/L (3.5-5.1); Sodium 141 mmol/L (137-145); Total Bilirubin 0.3 mg/dL (0.2-1.3); Total Protein 6.3 g/dL (6.3-8.2)
[2019-01-12 22:36] LABS: D-Dimer 0.2 mg/L FEU (<0.60); INR 0.9 (<1.2); Partial Thromboplastin Time 25.1 sec (22.0-30.0); Prothrombin Time 10.2 sec (9.0-12.0)
[2019-01-13] MEDS ORDERED: NITROGLYCERIN SL TABS 0.4 MG TAB SUBLINGUAL PRN (00:01)
[2019-01-13 00:53] VITALS: BMI 20.2
[2019-01-13] MEDS: METOPROLOL TARTRATE 25 MG TAB PO SCH ×2 (09:39→21:50)
[2019-01-13] MEDS: hydrOXYzine PAMOATE 25 MG CAP PO SCH ×2 (09:39→17:47)
[2019-01-13 11:36] LABS: Cholesterol 179 mg/dL (<200); HDL Cholesterol 48 mg/dL (40-60); LDL Cholesterol,Calculated 113 mg/dL (0-99); Triglycerides 88 mg/dL (<150)
--- NOTE | 2019-01-13 16:36 | HP ---
HISTORY AND PHYSICAL DATE OF ADMISSION: 01/13/2019 CHIEF COMPLAINT: Chest pain. HISTORY OF PRESENT ILLNESS: This is another hospital admission for this 48-year-old male. He came to the emergency room with chest pain. Enzymes are normal. He described the pain as being in the left anterior chest and sharp but without any radiation, diaphoresis, shortness of breath, etc. He is admitted for observation. REVIEW OF SYSTEMS: He denies any syncope, orthopnea, PND, history of heart disease, etc. Review of systems is otherwise unremarkable. He has had no headaches, neurologic problems, change in vision hearing, cough, hemoptysis, palpitations, orthopnea, PND, abdominal pain, nausea, vomiting, hematemesis, melena, hematochezia, jaundice, hematuria, frequency, urgency, arthralgias, diabetes, etc. Past medical history, family history, and personal and social history were all otherwise unremarkable and noncontributory. States he is supposed to be on medication (Depakote) for bipolar depression, but does not take it. He is not allergic to any medication. He has had no surgery except for an endoscopy. He smokes half pack of cigarettes a day. PHYSICAL EXAMINATION: Blood pressure is 123/64 with a pulse of 69, respirations of 33, and he is afebrile. GENERAL: He appeared to be slender and somewhat disheveled. Head, ears, eyes, nose, mouth, and throat were normal. Neck veins not distended. Thyroid is not enlarged. Chest is clear. Breath sounds are poor. He has increased AP diameter. Cardiac exam demonstrates normal sinus rhythm with a grade 2/6 systolic murmur. There is no S3 or S4. The abdomen is flat, soft, nontender without visceromegaly or masses. Extremities: Normal. Neurological is intact. IMPRESSION: 1. Atypical chest pain. 2. Chronic obstructive pulmonary disease. 3. Cardiac murmur. PLAN: 1. Bed rest. 2. IV fluids. 3. Serial EKGs and enzymes. 4. D-dimer. 5. BNP. 6. Echocardiogram. 7. Cardiology consult. ENRICO / JOANNA: [id number] /
--- NOTE | 2019-01-13 18:19 | ECHOF ---
Referral Reason:chest pain, cardiac murmur MEASUREMENTS -------- HEIGHT: 185.4 cm WEIGHT: 67.6 kg BP: 113/67 RVIDd: 3.0 cm (< 3.3) IVSd: 1.1 cm (0.6 - 1.1) LVIDd: 4.3 cm (3.9 - 5.3) LVPWd: 1.1 cm (0.6 - 1.1) IVSs: 1.2 cm LVIDs: 2.8 cm LVPWs: 1.2 cm LAESV Index (A-L): 20.54 ml/m Ao Diam: 2.8 cm (2.0 - 3.7) AV Cusp: 1.7 cm (1.5 - 2.6) LA Diam: 2.6 cm (2.7 - 3.8) EPSS: 0.4 cm MV E Raheel: 1.11 m/s MV DecT: 229 ms MV A Raheel: 1.03 m/s MV E/A Ratio: 1.08 RAP: 5.00 mmHg RVSP: 12.27 mmHg MV EF SLOPE: 144.61 mm/s (70 - 150) MV EXCURSION: 1.87 cm (> 18.000) FINDINGS -------- Sinus rhythm. This was a technically good study. The left ventricular size is normal. Left ventricular wall thickness is normal. Overall left vent ricular systolic function is normal with, an EF between 55 - 60 %. The right ventricle is normal in size and function. Normal LA size by volume 22+/-6 ml/m2. The right atrium is normal in size. The aortic valve is trileaflet, and appears structurally normal. No aortic stenosis or regurgitation. The mitral valve leaflets are mildly thickened. There is trace to mild mitral regurgitation. Trace tricuspid regurgitation present. Right ventricular systolic pressure is normal at < 35 mmHg. There is no evidence of pulmonary hypertension. Trace/mild (physiologic) pulmonic regurgitation. The aortic root size is normal. Normal inferior vena cava with normal inspiratory collapse consistent with estimated right atrial pre ssure of 5 mmHg. There is no pericardial effusion. CONCLUSIONS -------- 1. Sinus rhythm. 2. This was a technically good study. 3. The left ventricular size is normal. 4. Left ventricular wall thickness is normal. 5. Overall left ventricular systolic function is normal with, an EF between 55 - 60 %. 6. Normal LA size by volume 22+/-6 ml/m2. 7. The aortic valve is trileaflet, and appears structurally normal. No aortic stenosis or regurgitati on. 8. The mitral valve leaflets are mildly thickened. 9. There is trace to mild mitral regurgitation. 10. Trace tricuspid regurgitation present. 11. Right ventricular systolic pressure is normal at < 35 mmHg. 12. There is no evidence of pulmonary hypertension. 13. Trace/mild (physiologic) pulmonic regurgitation. 14. The aortic root size is normal. 15. There is no pericardial effusion. ORDER ENTRY ADMINISTRATOR: Teddy Rehman RDCS
[2019-01-13] MEDS ORDERED: hydrOXYzine PAMOATE 25 MG CAP PO SCH (21:00)
[2019-01-13] MEDS ORDERED: DIVALPROEX ER 500 MG TAB.ER.24H PO SCH (21:00)
[2019-01-13] MEDS ORDERED: QUEtiapine 200 MG TAB PO SCH (21:00)
[2019-01-14] MEDS: hydrOXYzine PAMOATE 25 MG CAP PO SCH (08:03)
[2019-01-14] MEDS: METOPROLOL TARTRATE 25 MG TAB PO SCH (08:03)
[2019-01-14 08:38] VITALS: RESP 16
[2019-01-14] MEDS ORDERED: ASPIRIN 325 MG TAB PO SCH (09:00)
--- NOTE | 2019-01-14 10:53 | P.CRDCN ---
History of Present Illness Consult date: 01/14/19 Chief complaint: chest pain History of present illness: HISTORY OF PRESENT ILLNESS AND PLAN: This is a 48-year-old male with history of bipolar depression, anxiety, schizoaffective disorder, COPD, CVA in 2012 and tobacco use, current 10 cigaret te per day smoker. Patient presents in the emergency department with complaints of [left sided chest pressure/pain. Patient states it feels like someone punched him in the chest. Patient states nothing makes it worse or better. Patient complains of mild shortness of breath. Patient states he has not seen a head esthetician or went to follow up visits. Patient has no current complaints, comfortably in bed with no acute distress. He has no current complaints of chest pain, chest pressure, difficulty in breathing, or palpitations.] SIGNIFICANT PAST MEDICAL HISTORY: [bipolar depression, anxiety, schizoaffective disorder, COPD, CVA in 2012 and tobacco use, current 10 cigarette per day smoker] PAST SURGICAL HISTORY: See list. EKG shows [sinus rhythm], heart rate [70] bpm. Troponins negative x [3]. SIGNIFICANT LABORATORY VALUES: [CBC, WNL. D dimer, WNL. BMP, WNL. Cholesterol panel, WNL.]. Chest x-ray [WNL.]. Most recent echo dated = [01/13/2019] indicates [EF 55-60%, WNL. Trace/mild MR.]. Most recent stress-echo testing dated = [2017] indicates [Patient walked 10 minutes, did not reach target heart rate. No ischemia]. REVIEW OF SYSTEMS: CONSTITUTIONAL: [Denies fever. Denies chills.] EYES: Denies blurred vision. [Denies blurred vision or vision changes. Denies eye pain.] EARS, NOSE, MOUTH & THROAT: [Denies headache. Denies sore throat. Denies ear pain Denies hemoptysis.] CARDIOVASCULAR: [Complains of chest pain, none currently. Complaints of shortness of breath, none currently. Denies orthopnea. Denies PND. Denies palpitations.] RESPIRATORY: [Denies cough. Complains of shortness of breath, none currently. ] GASTROINTESTINAL: [Denies abdominal pain or distention. Denies diarrhea. Denies constipation. Denies nausea. Denies vomiting.] MUSCULOSKELETAL: [Denies myalgias.] INTEGUMENTARY: [Denies pruitis. Denies rash.] ENDOCRINE: [Denies fatigue. Denies weight change. Denies polydipsia. Denies polyurina Denies heat/cold intolerance.] GENITOURINARY:[ Denies burning, hematuria or urgency with micturation.] HEMATOLOGIC: [Denies history of anemia. Denies bleeding.] NEUROLOGIC: [Denies numbness. Denies tingling. Denies weakness.] PSYCHIATRIC: [Denies anxiety. Denies depression.] PHYSICAL EXAM: VITAL SIGNS: GENERAL: Well developed, in no acute distress. HEENT: Head is atraumatic, normocephalic. Pupils are equal, round. Extra ocular movements intact. Mucous membranes moist. Neck supple. No JVD. No carotid bruit. No thyromegaly. LUNGS: Dimished but clear to auscultation no wheezes, rales or rhonchi. No chest wall tenderness on palpation or with deep breathing. HEART: Regular rate and rhythm, no rubs or gallops. S1 and S2 heard. No murmur. ABDOMEN: Abdominal exam, WNL. Bowel sounds x4 quads. Soft, non-tender, without masses, organomegaly, or abdominal aorta enlargement. EXTREMITIES/VASCULAR: Extremities have easily palpable radial, femoral, dorsalis pedis and posterior tibial pulses. No cyanosis, calf tenderness. No BLE edema. NEUROLOGIC: Patient is awake, alert and oriented x3. No focal neurological abnormalities. FINAL IMPRESSION: 1. [Atypical chest pain]. 2. [Tobacco abuse, 10 cigarette per day current smoker]. 3. [COPD] 4. [schizo-affective disorder] PLAN: Atypical chest pain. No current acute myocardial event. Echo this admission within normal limits. Negative troponins 3. Stress echo 2017 within normal limits, no ischemia. Heart healthy diet. Clear from cardiology standpoint for discharge. Patient to have out patient stress test within 1 to 2 weeks. Please call with questions or concerns. Thank you kindly for this consult. Nurse Practitioner note has been reviewed by the Physician. Signing provider agrees with the documented findings, assessment and plan of care. 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 Past Anesthesia/Blood Transfusion Reactions: Unable to Obtain Additional Past Anesthesia/Blood Transfusion Reaction / Comment(s): Pt has never had general/spinal anesthesia Past Psychological History: Anxiety, Bipolar, Depression, Schizoaffective Disorder, Schizophrenia Smoking Status: Current every day smoker Past Alcohol Use History: Occasional Additional Past Alcohol Use History / Comment(s): Patient is homeless, states he smokes cigarettes and marijuana when he is able. Past Drug Use History: Marijuana - Past Family History Mother Family Medical History: CVA/TIA, Myocardial Infarction ([place]) Father Additional Family Medical History / Comment(s): Emphesema Medications and Allergies Home Medications Medication Instructions Recorded Confirmed Type Divalproex ER [Depakote ER] 1,000 mg PO HS 01/12/19 01/12/19 History QUEtiapine [SEROquel] 200 mg PO HS 01/12/19 01/12/19 History hydrOXYzine PAMOATE [Vistaril] 50 mg PO BID 01/12/19 01/12/19 History hydrOXYzine PAMOATE [Vistaril] 100 mg PO HS 01/12/19 01/12/19 History Allergies Allergy/AdvReac Type Severity Reaction Status Date / Time horseradish Allergy Anaphylaxis Verified 01/12/19 21:54 shellfish derived [Shellfish] Allergy Anaphylaxis Verified 01/12/19 21:54 venom-wasp Allergy Anaphylaxis Verified 01/12/19 21:54 Physical Exam Vitals: Vital Signs Temp Pulse Resp BP Pulse Ox 01/14/19 08:28 97.4 F L 62 16 97/58 97 01/14/19 08:00 98 F 62 18 101/65 98 01/14/19 04:00 53 L 15 108/54 96 01/13/19 23:54 96 01/13/19 23:52 69 16 104/56 96 01/13/19 20:00 98.4 F 68 16 125/63 98 01/13/19 16:15 97.4 F L 80 18 126/69 97 01/13/19 11:55 65 18 113/67 96 Intake and Output 01/13/19 01/14/19 01/14/19 22:59 06:59 14:59 Intake Total 720 240 Output Total 170 Balance 550 240 Intake: Oral 720 240 Output: Urine 170 Other: Voiding Method Toilet # Voids 1 1 Weight 67.4 kg Results 01/12/19 21:44 01/12/19 21:44 Lipids 01/13/19 Range/Units 05:46 Triglycerides 88 (<150) mg/dL Cholesterol 179 (<200) mg/dL HDL Cholesterol 48 (40-60) mg/dL Current Medications Generic Name Dose Route Start Last Admin Trade Name Freq PRN Reason Stop Dose Admin Aspirin 325 mg 01/14/19 09:00 01/14/19 08:03 Aspirin PO 325 mg DAILY HANNAH Administration Divalproex Sodium 1,000 mg 01/13/19 21:00 01/13/19 21:49 Depakote Er PO 1,000 mg HS HANNAH Administration Hydroxyzine Pamoate 100 mg 01/13/19 21:00 01/13/19 21:50 Vistaril PO 100 mg HS HANNAH Administration Hydroxyzine Pamoate 50 mg 01/13/19 09:00 01/14/19 08:03 Vistaril PO 50 mg BID@0900,1700 HANNAH Administration Metoprolol Tartrate 25 mg 01/13/19 09:00 01/14/19 08:03 Lopressor PO 25 mg BID HANNAH Administration Nitroglycerin 0.4 mg 01/13/19 00:01 Nitrostat SUBLINGUAL Q5M PRN Chest Pain Quetiapine Fumarate 200 mg 01/13/19 21:00 01/13/19 21:50 Seroquel PO 200 mg HS HANNAH Administration Sodium Chloride 10 ml 01/13/19 09:00 01/14/19 08:03 Saline Flush IV 10 ml BID HANNAH Administration Intake and Output 01/13/19 01/14/19 01/14/19 22:59 06:59 14:59 Intake Total 720 240 Output Total 170 Balance 550 240 Intake: Oral 720 240 Output: Urine 170 Other: Voiding Method Toilet # Voids 1 1 Weight 67.4 kg 01/12/19 21:44 01/12/19 21:44 - EKG Interpretation EKG: sinus rhythm
[2019-01-14 12:00] VITALS: BP 104/65; PULSE 54; TEMP 97.3
--- NOTE | 2019-01-16 05:19 | DS ---
DISCHARGE SUMMARY DATE OF SERVICE: 01/14/2019 CHIEF COMPLAINT: Chest pain. HISTORY OF PRESENT ILLNESS AND PHYSICAL EXAM: Details of this man's history and physical can be found in the initial workup. LABORATORY STUDIES: While he was in his hospital he had laboratory studies, details of which can be found in the laboratory section of his chart. COURSE IN HOSPITAL: After admission he was placed on bedrest and started on intravenous fluids and he had serial EKGs and enzymes. He was found to have a cardiac murmur and this was evaluated. He was seen by Cardiology and it was felt that his pain was not cardiac related and that he could be discharged on the . He will be discharged on no medications except the ones that he believes that he should have been taking, but was not at admission. He will be on a regular diet and activity and he will come into the office in several days. FINAL DIAGNOSES: 1. Atypical chest pain. 2. Cardiac murmur. OPERATIONS: None. CONSULTATIONS: Cardiology. He is improved. MMODL / IJN: [id number] /
== END 2019-01-14 15:10 | disposition home or self-care (01) ==
LOC: EC 21:14 → 3SCARD 01-13 00:03 → 1SOBS 01-14 08:22
PROVIDERS: ADMIT Family Medicine; ATTEND Family Medicine
DX: R07.89 Other chest pain (principal); R01.1 Cardiac murmur, unspecified; J44.9 Chronic obstructive pulmonary disease, unspecified; F17.210 Nicotine dependence, cigarettes, uncomplicated; F31.30 Bipolar disorder, current episode depressed, mild or moderate severity, unspecified; F25.9 Schizoaffective disorder, unspecified; F41.9 Anxiety disorder, unspecified; I67.1 Cerebral aneurysm, nonruptured; G43.909 Migraine, unspecified, not intractable, without status migrainosus; Z59.0 Homelessness; Z91.14 Patient's other noncompliance with medication regimen; Z79.899 Other long term (current) drug therapy; Z91.038 Other insect allergy status; Z91.013 Allergy to seafood; Z91.018 Allergy to other foods; I25.2 Old myocardial infarction; Z86.73 Personal history of transient ischemic attack (TIA), and cerebral infarction without residual deficits; Z82.49 Family history of ischemic heart disease and other diseases of the circulatory system; Z82.3 Family history of stroke; Z82.5 Family history of asthma and other chronic lower respiratory diseases
CPT/HCPCS: 99285; 36415; 93005; 93306; 85379 ×2; 80061; 80053; 83735; 84484 ×2; 85025; 85610; 85730; 71046; G0378 ×2

== ENCOUNTER 2019-03-31 03:25 | Emergency (ER) | payer OTHER ==
[2019-03-31] MEDS ORDERED: IBUPROFEN 800 MG TAB PO STA (03:53)
[2019-03-31] MEDS ORDERED: PROCHLORPERAZINE 5 MG TAB PO STA (03:53)
[2019-03-31] MEDS ORDERED: diphenhydrAMINE 50 MG CAP PO STA (03:54)
--- NOTE | 2019-03-31 03:58 | ED ---
Headache HPI - General Chief Complaint: Headache Stated Complaint: Migrane Time Seen by Provider: 03/31/19 03:49 Mode of arrival: ambulatory Limitations: no limitations - History of Present Illness Initial Comments: Deangelo is a pleasant 49 yo male who since the emergency department today for evaluation of headache. Patient reports that his headache began approximately one week ago and has been persistent. Patient reports he has a history of chronic headaches and migraines. Patient reports that he is currently not taking any medications for his migraines and he feels that part of his migraine is due to not being able to get a good night sleep because he is currently homeless. Patient states that in the past marijuana is homeless headache he did smoke some earlier in the day but it did not improve his headache and he had nowhere to go tonight so he came to the ER. The patient reports that this headache is similar to previous, it was not sudden in onset, not associated with any focal neurologic deficits, not the worse headache of his life. It began one week ago, there are no exacerbating factors the headache is constant, no relieving factors though he has not tried any medications, he does driver worsened by lack of sleep though he has not been able to sleep to improve the headache. Headache is moderate in severity. - Related Data Home Medications Medication Instructions Recorded Confirmed RX: Divalproex ER [Depakote ER] 1,000 mg PO HS 01/12/19 01/12/19 RX: QUEtiapine [SEROquel] 200 mg PO HS 01/12/19 01/12/19 Allergies Allergy/AdvReac Type Severity Reaction Status Date / Time horseradish Allergy Anaphylaxis Verified 03/31/19 03:37 shellfish derived [Shellfish] Allergy Anaphylaxis Verified 03/31/19 03:37 venom-wasp Allergy Anaphylaxis Verified 03/31/19 03:37 Review of Systems ROS Statement: Those systems with pertinent positive or pertinent negative responses have been documented in the HPI. ROS Other: All systems not noted in ROS Statement are negative. 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 Past Anesthesia/Blood Transfusion Reactions: Unable to Obtain Additional Past Anesthesia/Blood Transfusion Reaction / Comment(s): Pt has never had general/spinal anesthesia Past Psychological History: Anxiety, Bipolar, Depression, Schizoaffective Disorder, Schizophrenia Smoking Status: Current every day smoker Past Alcohol Use History: Occasional Past Drug Use History: Marijuana - Past Family History Mother Family Medical History: CVA/TIA, Myocardial Infarction ([place]) Father Additional Family Medical History / Comment(s): Emphesema General Exam - General Exam Comments Initial Comments: Physical Exam GENERAL: Patient is well-developed and well-nourished. Patient is nontoxic and well-hydrated and is in no distress. HENT: Normocephalic, Atraumatic. TM normal bilaterally EYES: PERRL, EOMI PULMONARY: Unlabored respirations. No audible rales rhonchi or wheezing was noted. CARDIOVASCULAR: There is a regular rate and rhythm without any murmurs gallops or rubs. ABDOMEN: Soft and nontender with normal bowel sounds. SKIN: Skin is clear with no lesions or rashes and otherwise unremarkable. : Deferred NEUROLOGIC: Patient is alert and oriented x3. Moving all extremities spontaneously CN II-XII grossly intact MUSCULOSKELETAL: Normal extremities with adequate strength and full range of motion. No lower extremity swelling or edema. No calf tenderness. PSYCHIATRIC: Normal psychiatric evaluation Limitations: no limitations Course Vital Signs 03/31/19 03:34 Temperature 97.9 F Pulse Rate 83 Respiratory 18 Rate Blood Pressure 133/80 O2 Sat by Pulse 98 Oximetry - Reevaluation(s) Reevaluation #1: Patient has slept comfortably throughout his stay in the emergency department 03/31/19 05:53 Medical Decision Making - Medical Decision Making Patient was seen and evaluated history is obtained from the patient Patient with a history of chronic migraine status post CVA a number of years ago, patient has a known stable aneurysm. He has had a headache for one week. Headache is moderate in severity he's not tried any medications to improve it. Patient states he thinks most the headache is due to sleep deprivation and he is currently homeless. Patient will be given oral medications and allowed to sleep in the ER. Disposition Clinical Impression: Headache Disposition: HOME SELF-CARE Condition: Stable Instructions (If sedation given, give patient instructions): Migraine Headache (ED) Is patient prescribed a controlled substance at d/c from ED?: No Referrals: Flash Schofield MD [Primary Care Provider] - 1-2 days
[2019-03-31 06:41] VITALS: BP 124/82; PULSE 70; RESP 20; TEMP 98.1
== END 2019-03-31 06:41 | disposition home or self-care (01) ==
LOC: EC 03:25
DX: R51 Headache (principal); R56.9 Unspecified convulsions; F25.0 Schizoaffective disorder, bipolar type; F25.1 Schizoaffective disorder, depressive type; F17.200 Nicotine dependence, unspecified, uncomplicated; Z95.818 Presence of other cardiac implants and grafts; Z86.73 Personal history of transient ischemic attack (TIA), and cerebral infarction without residual deficits; Z86.79 Personal history of other diseases of the circulatory system; Z86.69 Personal history of other diseases of the nervous system and sense organs; Z79.899 Other long term (current) drug therapy; Z91.018 Allergy to other foods; Z91.013 Allergy to seafood; Z91.038 Other insect allergy status
CPT/HCPCS: 99283; S0183

== ENCOUNTER 2019-04-08 02:54 | Emergency (ER) | payer OTHER ==
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
[2019-04-08 03:41] LABS: Appearance,Urine Clear (Clear); Bilirubin,Urine Negative (Negative); Blood,Urine Negative (Negative); Color,Urine Yellow; Glucose,Urine (UA) Negative (Negative); Ketones,Urine Trace (Negative); Leukocyte Esterase,Urine Trace (Negative); Mucus,Urine Occasional /hpf; Nitrite,Urine Negative (Negative); PH, Urine 5.5 (5.0-8.0); Protein,Urine Trace (Negative); RBC,Urine 1 /hpf (0-5); Specific Gravity,Urine 1.028 (1.001-1.035); Squamous Epithelial Cell,Urine 1 /hpf (0-4); WBC,Urine 1 /hpf (0-5)
[2019-04-08 04:01] LABS: Amphetamine Screen,Urine Not Detected (NotDetected); Barbiturate Screen,Urine Not Detected (NotDetected); Benzodiazepines Screen,Urine Not Detected (NotDetected); Cocaine Screen,Urine Not Detected (NotDetected); Methadone Screen, Urine Not Detected (NotDetected); Opiate Screen,Urine Not Detected (NotDetected); Oxycodone Screen, Urine Not Detected (NotDetected); Phencyclidine Screen,Urine Not Detected (NotDetected); Tricyclic Antidepressant,Urine Not Detected (NotDetected); Urn Cannabinoid Scrn Detected (NotDetected)
[2019-04-08 06:44] VITALS: BP 102/65; PULSE 66; RESP 20; TEMP 97.8
== END 2019-04-08 06:46 | disposition home or self-care (01) ==
LOC: EC 02:54
DX: F32.9 Major depressive disorder, single episode, unspecified (principal); F20.9 Schizophrenia, unspecified; R56.9 Unspecified convulsions; F17.200 Nicotine dependence, unspecified, uncomplicated; Z95.818 Presence of other cardiac implants and grafts; Z86.73 Personal history of transient ischemic attack (TIA), and cerebral infarction without residual deficits; Z79.899 Other long term (current) drug therapy; Z91.013 Allergy to seafood; Z91.038 Other insect allergy status; Z91.018 Allergy to other foods
CPT/HCPCS: 80306; 81001; 82075; 99285

== ENCOUNTER 2019-05-29 02:19 | Emergency (ER) | payer OTHER ==
[2019-05-29 02:26] VITALS: BP 107/73; PULSE 100; RESP 20; TEMP 97.9
[2019-05-29] MEDS ORDERED: PENICILLIN VK 500MG STARTER 4 TAB BTL PO STA (02:31)
[2019-05-29] MEDS ORDERED: ACET/COD 300 MG/30 MG STARTER PACK 6 TAB BTL PO STA (02:32)
--- NOTE | 2019-05-29 02:33 | ED ---
ENT HPI - General Chief complaint: Dental/Oral Stated complaint: poss abscessed tooth Time Seen by Provider: 05/29/19 02:20 Source: patient Mode of arrival: ambulatory Limitations: no limitations - History of Present Illness Initial comments: Well appearing 49yo male history of abscess to his presenting for left lower dental pain. Patient states it feels like when he had a dental abscess in the past. Patient denies any facial swelling swelling. The tongue denies any difficulty breathing or swallowing. Patient denies any fever chills or flu like symptoms. Patient states the pain began yesterday. Patient presents emergency department for evaluation. Patient denies any antibiotic ALLERGIES. Remaining ROS (-). Pt appears well on arrival, afebrile. - Related Data Home Medications Medication Instructions Recorded Confirmed Divalproex ER [Depakote ER] 1,000 mg PO HS 01/12/19 05/29/19 Previous Rx's Medication Instructions Recorded Penicillin V Potassium [Pen Vee K] 500 mg PO QID 7 Days #28 tablet 05/29/19 Allergies Allergy/AdvReac Type Severity Reaction Status Date / Time horseradish Allergy Anaphylaxis Verified 04/08/19 03:02 shellfish derived [Shellfish] Allergy Anaphylaxis Verified 04/08/19 03:02 venom-wasp Allergy Anaphylaxis Verified 04/08/19 03:02 Review of Systems ROS Statement: Those systems with pertinent positive or pertinent negative responses have been documented in the HPI. ROS Other: All systems not noted in ROS Statement are negative. 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 Past Anesthesia/Blood Transfusion Reactions: Unable to Obtain Additional Past Anesthesia/Blood Transfusion Reaction / Comment(s): Pt has never had general/spinal anesthesia Past Psychological History: Anxiety, Bipolar, Depression, Schizoaffective Disorder, Schizophrenia Smoking Status: Current every day smoker Past Alcohol Use History: Occasional Past Drug Use History: Marijuana - Past Family History Mother Family Medical History: CVA/TIA, Myocardial Infarction ([place]) Father Additional Family Medical History / Comment(s): Emphesema General Exam - General Exam Comments Initial Comments: General: The patient is awake and alert, in no distress, and does not appear acutely ill. Eye: Pupils are equal, round and reactive to light, extra-ocular movements are intact. No nystagmus. There is normal conjunctiva bilaterally. No signs of icterus. Ears, nose, mouth and throat: There are moist mucous membranes and no oral lesions. Multiple carious teeth, missing teeth, cracked dentition. Patient has no fluctuant abscess. There is tenderness to percussion of tooth #21. The crown is also seen to be cracked. No swelling below the tongue or below the angle of the mandible. No facial swelling. Neck: The neck is supple, there is no tenderness or JVD. Cardiovascular: There is a regular rate and rhythm. No murmur, rub or gallop is appreciated. Respiratory: Lungs are clear to auscultation, respirations are non-labored, breath sounds are equal. No wheezes, stridor, rales, or rhonchi.] Musculoskeletal: Normal ROM, no tenderness. Strength 5/5. Sensation intact. Pulses equal bilaterally 2+. Neurological: A&O x 3. CN II-XII intact, There are no obvious motor or sensory deficits. Coordination appears grossly intact. Speech is normal. Skin: Skin is warm and dry and no rashes or lesions are noted. Psychiatric: Cooperative, appropriate mood & affect, normal judgment. Limitations: no limitations Course Vital Signs 05/29/19 02:24 Temperature 97.9 F Pulse Rate 100 Respiratory 20 Rate Blood Pressure 107/73 O2 Sat by Pulse 98 Oximetry Medical Decision Making - Medical Decision Making 49-year-old male presented for dental pain. No evidence of abscess. Different diagnosis includes periapical abscess. No systemic symptoms. Afebrile. Patient appears well signs of Omar's angina. Patient given starter pack of Pen-Vee K and discharged with a prescription. Importantly extraction was discussed the patient verbalizes understanding. Patient states she will follow- up with his dentist. Disposition Clinical Impression: Pain, dental Disposition: HOME SELF-CARE Condition: Good Instructions (If sedation given, give patient instructions): Dental Abscess (ED) Additional Instructions: Please use medication as discussed. Please follow-up with dentist for tooth extraction, return for facial swelling, difficulty breathing, swelling below tongue or jaw. Please return to emergency room if the symptoms increase or worsen or for any other concerns. Prescriptions: Penicillin V Potassium [Pen Vee K] 500 mg PO QID 7 Days #28 tablet Is patient prescribed a controlled substance at d/c from ED?: No Referrals: Flash Schofield MD [Primary Care Provider] - 1-2 days Time of Disposition: 02:33
== END 2019-05-29 03:09 | disposition home or self-care (01) ==
LOC: EC 02:19
DX: K08.89 Other specified disorders of teeth and supporting structures (principal); K02.9 Dental caries, unspecified; I25.2 Old myocardial infarction; F17.200 Nicotine dependence, unspecified, uncomplicated; Z79.899 Other long term (current) drug therapy; Z91.018 Allergy to other foods; Z91.09 Other allergy status, other than to drugs and biological substances; Z86.73 Personal history of transient ischemic attack (TIA), and cerebral infarction without residual deficits
CPT/HCPCS: 99282

== ENCOUNTER 2019-06-01 17:40 | Emergency (ER) | payer OTHER ==
--- NOTE | 2019-06-01 18:03 | ED ---
General Adult HPI - General Chief complaint: Chest Pain Stated complaint: Chest Pain Time Seen by Provider: 06/01/19 17:48 Source: patient Mode of arrival: ambulatory Limitations: no limitations - History of Present Illness Initial comments: Dictation was produced using Verious dictation software. please excuse any grammatical, word or spelling errors. Chief Complaint: 49-year-old male past nuchal history of asthma COPD and CVA presents with chest pain. History of Present Illness: His 49-year-old male. He states been having chest pain since 1 PM today. States pain is left anterior chest. He describes the pain as a squeezing sensation. States that it sometimes also sharp. Denies any radiation to the shoulders and arms. No radiation to the jaw. No associated diaphoresis. She states the symptoms aren't exacerbated with exertion. Patient has no other complaint at this time. He states he is homeless. Denies any abdominal pain. The ROS documented in this emergency department record has been reviewed and confirmed by me. Those systems with pertinent positive or negative responses have been documented in the HPI. All other systems are other negative and/or noncontributory. PHYSICAL EXAM: General Impression: Alert and oriented x3, not in acute distress, watching TV comfortably in [facility] HEENT: Normocephalic atraumatic, extra-ocular movements intact, pupils equal and reactive to light bilaterally, mucous membranes moist. Cardiovascular: Heart regular rate and rhythm, S1&S2 audible, no murmurs, rubs or gallops Chest: Lungs clear to auscultation bilaterally, no rhonchi, no wheeze, no rales Abdomen: Bowel sounds present, abdomen soft, non-tender, non-distended, no organomegaly Musculoskeletal: Pulses present and equal in all extremities, no peripheral edema Motor: no focal deficits noted Neurological: CN II-XII grossly intact, no focal motor or sensory deficits noted Skin: Intact with no visualized rashes Psych: Normal affect and mood ED course: 49-year-old male presents with chief complaint of chest pain. Clinical presentation consistent with atypical chest pain.. As upon arrival are within acceptable limits.Laboratory evaluation and imaging studies were found to be unremarkable. Patient was requesting food. He is comfortable. Clinical presentation is atypical chest pain. No high-risk features. Patient discharged and told to follow-up with primary care physician. Return parameters discussed. EKG interpretation: Ventricular rate 60, normal sinus rhythm,. Interval 1:30, QS 92, QTc 412. No LA prolongation, no QTC prolongation, no ST or T-wave changes noted. EKG compared to 01/12/2019 showing no changes. Overall, this EKG is unremarkable - Related Data Home Medications Medication Instructions Recorded Confirmed No Known Home Medications 06/01/19 06/01/19 Allergies Allergy/AdvReac Type Severity Reaction Status Date / Time horseradish Allergy Anaphylaxis Verified 06/01/19 19:11 shellfish derived [Shellfish] Allergy Anaphylaxis Verified 06/01/19 19:11 venom-wasp Allergy Anaphylaxis Verified 06/01/19 19:11 Review of Systems ROS Statement: Those systems with pertinent positive or pertinent negative responses have been documented in the HPI. ROS Other: All systems not noted in ROS Statement are negative. 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 Past Anesthesia/Blood Transfusion Reactions: Unable to Obtain Additional Past Anesthesia/Blood Transfusion Reaction / Comment(s): Pt has never had general/spinal anesthesia Past Psychological History: Anxiety, Bipolar, Depression, Schizoaffective Disorder, Schizophrenia Smoking Status: Current every day smoker Past Alcohol Use History: Occasional Past Drug Use History: Marijuana - Past Family History Mother Family Medical History: CVA/TIA, Myocardial Infarction (NM) Father Additional Family Medical History / Comment(s): Emphesema General Exam Limitations: no limitations Course Vital Signs 06/01/19 06/01/19 17:42 18:17 Temperature 97.9 F Pulse Rate 67 62 Respiratory 16 18 Rate Blood Pressure 113/71 117/78 O2 Sat by Pulse 96 99 Oximetry Medical Decision Making - Lab Data Result diagrams: 06/01/19 18:15 06/01/19 18:15 Lab Results 06/01/19 06/01/19 06/01/19 Range/Units 18:15 18:15 18:15 WBC 9.2 (3.8-10.6) k/uL RBC 4.70 (4.30-5.90) m/uL Hgb 13.5 (13.0-17.5) gm/dL Hct 41.3 (39.0-53.0) % MCV 87.9 (80.0-100.0) fL MCH 28.7 (25.0-35.0) pg MCHC 32.7 (31.0-37.0) g/dL RDW 14.7 (11.5-15.5) % Plt Count 333 (150-450) k/uL Neutrophils % 56 % Lymphocytes % 32 % Monocytes % 6 % Eosinophils % 4 % Basophils % 1 % Neutrophils # 5.2 (1.3-7.7) k/uL Lymphocytes # 2.9 (1.0-4.8) k/uL Monocytes # 0.5 (0-1.0) k/uL Eosinophils # 0.3 (0-0.7) k/uL Basophils # 0.1 (0-0.2) k/uL PT 9.9 (9.0-12.0) sec INR 0.9 (<1.2) APTT 25.1 (22.0-30.0) sec Sodium 139 (137-145) mmol/L Potassium 4.3 (3.5-5.1) mmol/L Chloride 106 (98-107) mmol/L Carbon Dioxide 24 (22-30) mmol/L Anion Gap 9 mmol/L BUN 22 H (9-20) mg/dL Creatinine 1.20 (0.66-1.25) mg/dL Est GFR (CKD-EPI)AfAm 81 (>60 ml/min/1.73 sqM) Est GFR (CKD-EPI)NonAf 70 (>60 ml/min/1.73 sqM) Glucose 148 H (74-99) mg/dL Calcium 9.3 (8.4-10.2) mg/dL Magnesium 2.0 (1.6-2.3) mg/dL Total Bilirubin 0.2 (0.2-1.3) mg/dL AST 19 (17-59) U/L ALT 13 L (21-72) U/L Alkaline Phosphatase 93 (38-126) U/L Troponin I (0.000-0.034) ng/mL Total Protein 6.7 (6.3-8.2) g/dL Albumin 4.2 (3.5-5.0) g/dL Lipase 145 (23-300) U/L 06/01/19 Range/Units 18:15 WBC (3.8-10.6) k/uL RBC (4.30-5.90) m/uL Hgb (13.0-17.5) gm/dL Hct (39.0-53.0) % MCV (80.0-100.0) fL MCH (25.0-35.0) pg MCHC (31.0-37.0) g/dL RDW (11.5-15.5) % Plt Count (150-450) k/uL Neutrophils % % Lymphocytes % % Monocytes % % Eosinophils % % Basophils % % Neutrophils # (1.3-7.7) k/uL Lymphocytes # (1.0-4.8) k/uL Monocytes # (0-1.0) k/uL Eosinophils # (0-0.7) k/uL Basophils # (0-0.2) k/uL PT (9.0-12.0) sec INR (<1.2) APTT (22.0-30.0) sec Sodium (137-145) mmol/L Potassium (3.5-5.1) mmol/L Chloride (98-107) mmol/L Carbon Dioxide (22-30) mmol/L Anion Gap mmol/L BUN (9-20) mg/dL Creatinine (0.66-1.25) mg/dL Est GFR (CKD-EPI)AfAm (>60 ml/min/1.73 sqM) Est GFR (CKD-EPI)NonAf (>60 ml/min/1.73 sqM) Glucose (74-99) mg/dL Calcium (8.4-10.2) mg/dL Magnesium (1.6-2.3) mg/dL Total Bilirubin (0.2-1.3) mg/dL AST (17-59) U/L ALT (21-72) U/L Alkaline Phosphatase (38-126) U/L Troponin I <0.012 (0.000-0.034) ng/mL Total Protein (6.3-8.2) g/dL Albumin (3.5-5.0) g/dL Lipase (23-300) U/L Disposition Clinical Impression: Chest pain Disposition: HOME SELF-CARE Condition: Good Instructions (If sedation given, give patient instructions): Chest Pain (ED) Is patient prescribed a controlled substance at d/c from ED?: No Referrals: Flash Schofield MD [Primary Care Provider] - 1-2 days Time of Disposition: 19:13
[2019-06-01 18:18] VITALS: RESP 18
[2019-06-01 18:40] LABS: Basophils # (A) 0.1 k/uL (0-0.2); Basophils % (A) 1 %; Eosinophils # (A) 0.3 k/uL (0-0.7); Eosinophils % (A) 4 %; HCT 41.3 % (39.0-53.0); HGB 13.5 gm/dL (13.0-17.5); Lymphocytes # (A) 2.9 k/uL (1.0-4.8); Lymphocytes % (A) 32 %; MCH 28.7 pg (25.0-35.0); MCHC 32.7 g/dL (31.0-37.0); MCV 87.9 fL (80.0-100.0); Mean Platelet Volume 6.7; Monocytes # (A) 0.5 k/uL (0-1.0); Monocytes % (A) 6 %; Neutrophils # (A) 5.2 k/uL (1.3-7.7); Neutrophils % (A) 56 %; Platelet Count 333 k/uL (150-450); RDW 14.7 % (11.5-15.5); WBC 9.2 k/uL (3.8-10.6)
[2019-06-01 18:47] LABS: Albumin 4.2 g/dL (3.5-5.0); Calcium 9.3 mg/dL (8.4-10.2); INR 0.9 (<1.2); Partial Thromboplastin Time 25.1 sec (22.0-30.0); Potassium 4.3 mmol/L (3.5-5.1); Prothrombin Time 9.9 sec (9.0-12.0); Total Bilirubin 0.2 mg/dL (0.2-1.3); Total Protein 6.7 g/dL (6.3-8.2)
--- NOTE | 2019-06-01 18:51 | XR ---
EXAMINATION TYPE: XR chest 2V DATE OF EXAM: 06/01/2019 COMPARISON: 01/12/2019 HISTORY: Left-sided chest pressure TECHNIQUE: Frontal and lateral views of the chest are obtained. FINDINGS: Heart and mediastinum are normal. Lungs are clear. Diaphragm is normal. There are chest le ads. Bony thorax is intact. IMPRESSION: Normal chest. No change.
[2019-06-01 19:21] VITALS: BP 126/86; PULSE 60; TEMP 97.5
== END 2019-06-01 19:22 | disposition home or self-care (01) ==
LOC: EC 17:40
DX: R07.89 Other chest pain (principal); F17.200 Nicotine dependence, unspecified, uncomplicated; Z91.013 Allergy to seafood; Z91.018 Allergy to other foods; Z91.038 Other insect allergy status; Z59.0 Homelessness; Z86.73 Personal history of transient ischemic attack (TIA), and cerebral infarction without residual deficits; Z82.49 Family history of ischemic heart disease and other diseases of the circulatory system
CPT/HCPCS: 36415; 71046; 80053; 83690; 83735; 84484; 85025; 85610; 85730; 93005; 99285

== ENCOUNTER 2019-06-05 23:11 | Emergency (ER) | payer OTHER ==
[2019-06-05 23:20] VITALS: BP 106/73; PULSE 79; RESP 18; TEMP 97.6
--- NOTE | 2019-06-05 23:45 | ED ---
General Adult HPI - General Chief complaint: Recheck/Abnormal Lab/Rx Stated complaint: Not feeling well Time Seen by Provider: 06/05/19 23:25 Source: patient Mode of arrival: ambulatory Limitations: no limitations - History of Present Illness Initial comments: 49-year-old male patient presents to the emergency department reporting feeling hungry and fatigue. Patient admits to being homeless currently. States for the last few nights he has not had anywhere to sleep so he is feeling quite tired. Patient is also reporting feeling hungry. States he has not had anything to eat since Tuesday. States this is causing him to be lightheaded. States that he is seeking food and halfway. Patient denies any recent rash, fever, chills, shortness breath, chest pain, abdominal pain, nausea, vomiting, diarrhea, constipation, back pain, numbness, tingling, dizziness, weakness, hematuria, dysuria, urinary urgency, urinary frequency, headache, visual changes, or any other complaints. - Related Data Home Medications Medication Instructions Recorded Confirmed Divalproex ER [Depakote ER] 500 mg PO HS 06/05/19 06/05/19 Allergies Allergy/AdvReac Type Severity Reaction Status Date / Time horseradish Allergy Anaphylaxis Verified 06/05/19 23:28 shellfish derived [Shellfish] Allergy Anaphylaxis Verified 06/05/19 23:28 venom-wasp Allergy Anaphylaxis Verified 06/05/19 23:28 Review of Systems ROS Statement: Those systems with pertinent positive or pertinent negative responses have been documented in the HPI. ROS Other: All systems not noted in ROS Statement are negative. 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 Past Anesthesia/Blood Transfusion Reactions: Unable to Obtain Additional Past Anesthesia/Blood Transfusion Reaction / Comment(s): Pt has never had general/spinal anesthesia Past Psychological History: Anxiety, Bipolar, Depression, Schizoaffective Disorder, Schizophrenia Smoking Status: Current every day smoker Past Alcohol Use History: Occasional Past Drug Use History: Marijuana - Past Family History Mother Family Medical History: CVA/TIA, Myocardial Infarction ([place]) Father Additional Family Medical History / Comment(s): Emphesema General Exam Limitations: no limitations General appearance: alert, in no apparent distress, other (Physical well- developed, thin appearing adult male patient in no acute distress. Vital signs upon presentation are temperature 97.6F, pulse 79, respirations 18, blood pressure 106/73, pulse ox 98% on room air.) Eye exam: Present: normal appearance, PERRL, EOMI. Absent: scleral icterus, conjunctival injection, periorbital swelling Neck exam: Present: normal inspection. Absent: tenderness, meningismus, lymphadenopathy Respiratory exam: Present: normal lung sounds bilaterally. Absent: respiratory distress, wheezes, rales, rhonchi, stridor Cardiovascular Exam: Present: regular rate, normal rhythm, normal heart sounds. Absent: systolic murmur, diastolic murmur, rubs, gallop, clicks GI/Abdominal exam: Present: soft, normal bowel sounds. Absent: distended, tenderness, guarding, rebound, rigid Neurological exam: Present: alert, oriented X3, CN II-XII intact Psychiatric exam: Present: normal affect, normal mood Skin exam: Present: warm, dry, intact, normal color. Absent: rash Course Vital Signs 06/05/19 23:15 Temperature 97.6 F Pulse Rate 79 Respiratory 18 Rate Blood Pressure 106/73 O2 Sat by Pulse 98 Oximetry Medical Decision Making - Medical Decision Making 49-year-old male patient presents to the emergency department today for evaluation of feeling hungry and tired. Patient does not being homeless. Physical examination is unremarkable. She denies any current physical symptoms or concerns other than feeling hungry. Patient was given a meal and discharged. He is given outpatient community resources. He is instructed to follow-up with his primary care physician as needed. Return parameters discussed in detail. He verbalizes understanding and agrees with this plan. Disposition Clinical Impression: Homelessness, Hunger Disposition: HOME SELF-CARE Condition: Good Additional Instructions: Follow up with your primary care physician as needed. Use community resources for homelessness. Return for any new, worsening, or concerning symptoms. Is patient prescribed a controlled substance at d/c from ED?: No Referrals: Flash Schofield MD [Primary Care Provider] - 1-2 days Time of Disposition: 23:45
== END 2019-06-06 00:47 | disposition home or self-care (01) ==
LOC: EC 23:11
DX: T73.0XXA Starvation, initial encounter (principal); R53.83 Other fatigue; F31.9 Bipolar disorder, unspecified; I25.2 Old myocardial infarction; F17.200 Nicotine dependence, unspecified, uncomplicated; Z95.5 Presence of coronary angioplasty implant and graft; Z86.73 Personal history of transient ischemic attack (TIA), and cerebral infarction without residual deficits; Z59.0 Homelessness; Z79.899 Other long term (current) drug therapy; Z91.018 Allergy to other foods; Z91.013 Allergy to seafood; Z91.038 Other insect allergy status
CPT/HCPCS: 99283

== ENCOUNTER 2019-06-19 01:39 | Emergency (ER) | payer OTHER ==
[2019-06-19 02:01] VITALS: TEMP 98
--- NOTE | 2019-06-19 02:54 | ED ---
Psych HPI - General Chief Complaint: Psychiatric Symptoms Stated Complaint: Mental health Time Seen by Provider: 06/19/19 01:53 Source: patient Mode of arrival: ambulatory - History of Present Illness Initial Comments: 's patient is a 49-year-old man with a history of bipolar disorder, who states that he believes his bipolar is starting to act up. He states that for about the past 5 days he has noticed that he is becoming more irritable. He states that he is finding that he gets angry when people cut in front of him in line at the kitchen. The patient denies having any specific homicidal intent. No suicidal ideation. He states that he has been compliant with his medications. Complaint: other Onset/Timin -: days(s) Associated Psychiatric Symptoms: other History of same: Yes Quality: getting worse Improves With: none Worsens With: none Context: other Associated Symptoms: denies other symptoms - Related Data Home Medications Medication Instructions Recorded Confirmed Divalproex ER [Depakote ER] 500 mg PO HS 06/05/19 06/05/19 Allergies Allergy/AdvReac Type Severity Reaction Status Date / Time horseradish Allergy Anaphylaxis Verified 06/19/19 01:48 shellfish derived [Shellfish] Allergy Anaphylaxis Verified 06/19/19 01:48 venom-wasp Allergy Anaphylaxis Verified 06/19/19 01:48 Review of Systems ROS Statement: Those systems with pertinent positive or pertinent negative responses have been documented in the HPI. ROS Other: All systems not noted in ROS Statement are negative. 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 Past Anesthesia/Blood Transfusion Reactions: Unable to Obtain Additional Past Anesthesia/Blood Transfusion Reaction / Comment(s): Pt has never had general/spinal anesthesia Past Psychological History: Anxiety, Bipolar, Depression, Schizoaffective Disorder, Schizophrenia Smoking Status: Current every day smoker Past Alcohol Use History: None Reported Past Drug Use History: Marijuana - Past Family History Mother Family Medical History: CVA/TIA, Myocardial Infarction ([place]) Father Additional Family Medical History / Comment(s): Emphesema General Exam Limitations: no limitations General appearance: alert, in no apparent distress Head exam: Present: atraumatic, normocephalic Eye exam: Present: normal appearance. Absent: scleral icterus, conjunctival injection ENT exam: Present: normal oropharynx Neck exam: Present: normal inspection Respiratory exam: Present: normal lung sounds bilaterally. Absent: respiratory distress, wheezes, rales, rhonchi, stridor Cardiovascular Exam: Present: regular rate, normal rhythm, normal heart sounds. Absent: systolic murmur, diastolic murmur, rubs, gallop GI/Abdominal exam: Present: soft. Absent: distended, tenderness, guarding, re bound, rigid, mass Extremities exam: Present: normal inspection, normal capillary refill. Absent: pedal edema, calf tenderness Back exam: Present: normal inspection. Absent: CVA tenderness (R), CVA tenderness (L) Neurological exam: Present: alert Psychiatric exam: Present: normal affect, normal mood. Absent: agitated, anxious, flat affect, manic, homicidal ideation, suicidal ideation Skin exam: Present: warm, dry, intact, normal color. Absent: rash Course Vital Signs 06/19/19 06/19/19 01:46 02:00 Temperature 97.5 F L 98 F Pulse Rate 73 75 Respiratory 15 18 Rate Blood Pressure 121/68 101/75 O2 Sat by Pulse 97 95 Oximetry Disposition Clinical Impression: Mood disorder Disposition: HOME SELF-CARE Condition: Fair Instructions (If sedation given, give patient instructions): Mood Disorders (ED) Is patient prescribed a controlled substance at d/c from ED?: No Referrals: Flash Schofield MD [Primary Care Provider] - 1-2 days
[2019-06-19 05:51] VITALS: BP 110/69; PULSE 71; RESP 16
== END 2019-06-19 05:51 | disposition home or self-care (01) ==
LOC: EC 01:39
DX: F31.9 Bipolar disorder, unspecified (principal); F20.9 Schizophrenia, unspecified; F17.200 Nicotine dependence, unspecified, uncomplicated; Z91.013 Allergy to seafood; Z91.018 Allergy to other foods; Z91.038 Other insect allergy status; Z79.899 Other long term (current) drug therapy; Z86.73 Personal history of transient ischemic attack (TIA), and cerebral infarction without residual deficits
CPT/HCPCS: 82075; 99283

== ENCOUNTER 2019-07-17 00:06 | Emergency (ER) | payer OTHER ==
[2019-07-17 00:13] VITALS: RESP 18
[2019-07-17] MEDS ORDERED: ASPIRIN 81 MG PO STA (00:34)
[2019-07-17] MEDS ORDERED: SODIUM CHLORIDE 0.9% 500 ML 500 ML IV STA (00:34)
--- NOTE | 2019-07-17 00:44 | ED ---
Chest Pain HPI - General Chief Complaint: Chest Pain Stated Complaint: Chest Pain Time Seen by Provider: 07/17/19 00:34 Source: patient Mode of arrival: ambulatory Limitations: no limitations - History of Present Illness Initial Comments: Deangelo is a pleasant 49-year-old gentleman who presents the ER today with a report of 2-3 days of intermittent chest pain. Patient reports that over the past 3 days he has episodes of chest pain that lasts about 5 minutes. He describes the pain as tightness. Pain occurs without provocation resolve spontaneously. He does not take any medications for this. He denies any cardiac history. He isn't every day cigarette smoker. He does not take any daily medications. He is currently homeless. - Related Data Home Medications Medication Instructions Recorded Confirmed Divalproex ER [Depakote ER] 500 mg PO HS 06/05/19 06/05/19 Allergies Allergy/AdvReac Type Severity Reaction Status Date / Time horseradish Allergy Anaphylaxis Verified 07/17/19 00:13 shellfish derived [Shellfish] Allergy Anaphylaxis Verified 07/17/19 00:13 venom-wasp Allergy Anaphylaxis Verified 07/17/19 00:13 Review of Systems ROS Statement: Those systems with pertinent positive or pertinent negative responses have been documented in the HPI. ROS Other: All systems not noted in ROS Statement are negative. EKG Findings - EKG Comments: EKG Findings:: KG was obtained due to complaint chest pain, EKG obtained at 12:41 AM, rate of 61 rhythm is sinus normal axis and normal intervals, KS 142, care is 66, QTC 414 there are no acute ST elevations or depressions there is no evidence of acute ischemia or infarction. 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 Past Anesthesia/Blood Transfusion Reactions: Unable to Obtain Additional Past Anesthesia/Blood Transfusion Reaction / Comment(s): Pt has never had general/spinal anesthesia Past Psychological History: Anxiety, Bipolar, Depression, Schizoaffective Disorder, Schizophrenia Smoking Status: Current every day smoker Past Alcohol Use History: None Reported Past Drug Use History: Marijuana - Past Family History Mother Family Medical History: CVA/TIA, Myocardial Infarction ([place]) Father Additional Family Medical History / Comment(s): Emphesema General Exam - General Exam Comments Initial Comments: Physical Exam GENERAL: Strong odor of cigarette smoke Patient is well-developed and well-nourished. Patient is nontoxic and well- hydrated and is in no distress. HENT: Normocephalic, Atraumatic. EYES: PERRL, EOMI PULMONARY: Unlabored respirations. No audible rales rhonchi or wheezing was noted. CARDIOVASCULAR: There is a regular rate and rhythm without any murmurs gallops or rubs. ABDOMEN: Soft and nontender with normal bowel sounds. SKIN: Skin is clear with no lesions or rashes and otherwise unremarkable. : Deferred NEUROLOGIC: Patient is alert and oriented x3. Moving all extremities spontaneously MUSCULOSKELETAL: Normal extremities with adequate strength and full range of motion. No lower extremity swelling or edema. No calf tenderness. PSYCHIATRIC: Normal psychiatric evaluation Limitations: no limitations Course Vital Signs 07/17/19 00:10 Temperature 97.6 F Pulse Rate 78 Respiratory 18 Rate Blood Pressure 109/73 O2 Sat by Pulse 99 Oximetry Chest Pain MDM - MDM was seen and evaluated history is obtained from the patient Patient reports intermittent vague chest pain over the past 3 days. Pain is not exertional but does not really versus rest. EKG was nonischemic Labs are unremarkable Patient rested comfortably in the ER for 4 hours and subsequently discharged in stable condition. Disposition Clinical Impression: Atypical chest pain Disposition: HOME SELF-CARE Condition: Stable Instructions (If sedation given, give patient instructions): Chest Pain (ED) Is patient prescribed a controlled substance at d/c from ED?: No Referrals: Flash Schofield MD [Primary Care Provider] - 1-2 days
[2019-07-17 00:57] LABS: Basophils # (A) 0.1 k/uL (0-0.2); Basophils % (A) 1 %; Eosinophils # (A) 0.4 k/uL (0-0.7); Eosinophils % (A) 3 %; HCT 39.6 % (39.0-53.0); HGB 12.6 gm/dL (13.0-17.5); Lymphocytes # (A) 2.8 k/uL (1.0-4.8); Lymphocytes % (A) 23 %; MCH 28.5 pg (25.0-35.0); MCHC 31.7 g/dL (31.0-37.0); MCV 89.9 fL (80.0-100.0); Mean Platelet Volume 6.5; Monocytes # (A) 0.6 k/uL (0-1.0); Monocytes % (A) 5 %; Neutrophils % (A) 66 %; Platelet Count 321 k/uL (150-450); RBC 4.41 m/uL (4.30-5.90); WBC 12.2 k/uL (3.8-10.6)
[2019-07-17 01:07] LABS: INR 0.9 (<1.2); Partial Thromboplastin Time 25.5 sec (22.0-30.0); Prothrombin Time 9.7 sec (9.0-12.0)
[2019-07-17 01:08] LABS: ALT 15 U/L (21-72); AST 23 U/L (17-59); African American GFR (CKD) >90 (>60 ml/min/1.73 sqM); Albumin 4.1 g/dL (3.5-5.0); Alkaline Phosphatase 101 U/L (38-126); Anion Gap 10 mmol/L; Blood Urea Nitrogen 16 mg/dL (9-20); Calcium 9.4 mg/dL (8.4-10.2); Carbon Dioxide 25 mmol/L (22-30); Chloride 104 mmol/L (98-107); Glucose 95 mg/dL (74-99); Magnesium 1.9 mg/dL (1.6-2.3); Potassium 4.1 mmol/L (3.5-5.1); Sodium 139 mmol/L (137-145); Total Bilirubin 0.2 mg/dL (0.2-1.3); Total Protein 6.7 g/dL (6.3-8.2)
--- NOTE | 2019-07-17 01:31 | XR ---
EXAMINATION TYPE: XR chest 2V DATE OF EXAM: 07/17/2019 COMPARISON: 06/01/2019 HISTORY: Chest pain TECHNIQUE: Frontal and lateral views of the chest are obtained. FINDINGS: There is no heart failure nor confluent pneumonic infiltrate. There are chest leads. Costo phrenic angles are clear. IMPRESSION: No active cardiopulmonary disease. Normal heart. No change. There is probably some COPD.
[2019-07-17 04:19] VITALS: BP 111/80; PULSE 67; TEMP 98
== END 2019-07-17 04:19 | disposition home or self-care (01) ==
LOC: EC 00:06
DX: R07.89 Other chest pain (principal); R56.9 Unspecified convulsions; I25.2 Old myocardial infarction; F31.9 Bipolar disorder, unspecified; F20.9 Schizophrenia, unspecified; F17.200 Nicotine dependence, unspecified, uncomplicated; Z59.0 Homelessness; Z86.73 Personal history of transient ischemic attack (TIA), and cerebral infarction without residual deficits; Z86.69 Personal history of other diseases of the nervous system and sense organs; Z98.890 Other specified postprocedural states; Z79.899 Other long term (current) drug therapy; Z91.013 Allergy to seafood; Z91.018 Allergy to other foods; Z91.030 Bee allergy status
CPT/HCPCS: 36415; 71046; 80053; 83735; 83880; 84484; 85025; 85610; 85730; 93005; 96360; 96361; 99285

== ENCOUNTER 2019-07-19 17:00 | Observation (INO) | payer OTHER ==
[2019-07-19] MEDS ORDERED: KETOROLAC 30 MG/ML 1 ML VIAL IVP STA (17:22)
[2019-07-19] MEDS ORDERED: SODIUM CHLORIDE 0.9% 1,000 ML IV STA (17:22)
[2019-07-19] MEDS ORDERED: MORPHINE SULFATE 4 MG/ML SYRINGE IV STA (17:22)
[2019-07-19] MEDS ORDERED: DEXAMETHASONE SOD PHOSPHATE 10 MG/ML 1 ML VIAL IV STA (17:22)
--- NOTE | 2019-07-19 17:29 | ED ---
Chest Pain HPI - General Chief Complaint: Chest Pain Stated Complaint: rt sided chest pain, SOB Time Seen by Provider: 07/19/19 17:20 Source: patient, EMS, RN notes reviewed, old records reviewed Mode of arrival: ambulatory Limitations: no limitations - History of Present Illness Initial Comments: This is a 49-year-old male the ER today. He presents today for evaluation of recurrent chest pain. Patient admits to being here 2 days ago with similar chest pain resolved prior to discharge and started back again today. Patient has no traumas. No travel history, does admit to homelessness. History of stroke no significant clinic evaluation since his CVA. She is a smoker with history of asthma COPD in the prior CVA. Patient's current chest pain no diaphoresis mild shortness of breath MD Complaint: chest pain -: days(s) Onset: during rest, during exertion Pain Location: left chest Severity: mild Severity scale (1-10): 2 Quality: aching, heaviness Consistency: intermittent Improves With: nothing Worsens With: nothing Anginal Symptoms: dyspnea Other Symptoms: cough, palpitations Treatments Prior to Arrival: none - Related Data Home Medications Medication Instructions Recorded Confirmed No Known Home Medications 07/19/19 07/19/19 Allergies Allergy/AdvReac Type Severity Reaction Status Date / Time horseradish Allergy Anaphylaxis Verified 07/19/19 18:16 shellfish derived [Shellfish] Allergy Anaphylaxis Verified 07/19/19 18:16 venom-wasp Allergy Anaphylaxis Verified 07/19/19 18:16 Review of Systems ROS Statement: Those systems with pertinent positive or pertinent negative responses have been documented in the HPI. ROS Other: All systems not noted in ROS Statement are negative. 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 Past Anesthesia/Blood Transfusion Reactions: Unable to Obtain Additional Past Anesthesia/Blood Transfusion Reaction / Comment(s): Pt has never had general/spinal anesthesia Past Psychological History: Anxiety, Bipolar, Depression, Schizoaffective Disorder, Schizophrenia Smoking Status: Current every day smoker Past Alcohol Use History: None Reported Past Drug Use History: Marijuana - Past Family History Mother Family Medical History: CVA/TIA, Myocardial Infarction ([place]) Father Additional Family Medical History / Comment(s): Emphesema General Exam Limitations: no limitations General appearance: alert, in no apparent distress Head exam: Present: atraumatic, normocephalic, normal inspection Eye exam: Present: normal appearance, EOMI. Absent: scleral icterus, conjunctival injection, periorbital swelling ENT exam: Present: normal exam, mucous membranes moist Neck exam: Present: normal inspection. Absent: tenderness, meningismus, lymphadenopathy Respiratory exam: Present: wheezes. Absent: rales, rhonchi, stridor Cardiovascular Exam: Present: regular rate, normal rhythm, normal heart sounds. Absent: systolic murmur, diastolic murmur, rubs, gallop, clicks GI/Abdominal exam: Present: soft, normal bowel sounds. Absent: distended, tenderness, guarding, rebound, rigid Extremities exam: Present: normal inspection, full ROM, normal capillary refill. Absent: tenderness, pedal edema, joint swelling, calf tenderness Back exam: Present: normal inspection Neurological exam: Present: alert, oriented X3, CN II-XII intact Psychiatric exam: Present: normal affect, normal mood Skin exam: Present: warm, dry, intact, normal color. Absent: rash Course Vital Signs 07/19/19 17:02 Temperature 98.4 F Pulse Rate 71 Respiratory 18 Rate Blood Pressure 116/83 O2 Sat by Pulse 99 Oximetry - Reevaluation(s) Reevaluation #1: 07/19/19 17:29 Medical record and ER visit from 2 days ago is reviewed Reevaluation #2: 07/19/19 19:51 Continues to chest pain - Consultations Consultation #1: Spoke with Dr. Schofield who is agreeable for admission Chest Pain MDM - MDM 49 male the ER for evaluation history of CVA and smoking coming in with chest pain. Second visit in 2 days. Patient be admitted for cardiac observation CT of chest is negative for PE Critical Care Time Critical Care Time: Yes Total Critical Care Time: 31 Disposition Clinical Impression: Chest pain Disposition: ADMITTED IP TO THIS HOSP Condition: Undetermined Instructions (If sedation given, give patient instructions): Chest Pain (ED) Is patient prescribed a controlled substance at d/c from ED?: No Referrals: Flash Schofield MD [Primary Care Provider] - 1-2 days
[2019-07-19 17:49] LABS: Basophils # (A) 0.2 k/uL (0-0.2); Basophils % (A) 2 %; Eosinophils # (A) 0.3 k/uL (0-0.7); Eosinophils % (A) 3 %; HCT 37.2 % (39.0-53.0); HGB 12.5 gm/dL (13.0-17.5); Lymphocytes # (A) 2.1 k/uL (1.0-4.8); Lymphocytes % (A) 21 %; MCH 29.3 pg (25.0-35.0); MCHC 33.6 g/dL (31.0-37.0); MCV 87.2 fL (80.0-100.0); Mean Platelet Volume 8.5; Monocytes # (A) 0.5 k/uL (0-1.0); Monocytes % (A) 5 %; Neutrophils # (A) 6.9 k/uL (1.3-7.7); Neutrophils % (A) 68 %; Platelet Count 323 k/uL (150-450); RBC 4.26 m/uL (4.30-5.90); RDW 14.6 % (11.5-15.5); WBC 10.1 k/uL (3.8-10.6)
[2019-07-19] MEDS: IPRATROPIUM-ALBUTEROL 3 ML NEB INHALATION STA (18:10)
[2019-07-19 18:24] LABS: INR 0.9 (<1.2); Partial Thromboplastin Time 25.6 sec (22.0-30.0); Prothrombin Time 10.1 sec (9.0-12.0)
[2019-07-19 18:29] LABS: ALT 19 U/L (21-72); AST 23 U/L (17-59); African American GFR (CKD) >90 (>60 ml/min/1.73 sqM); Albumin 3.9 g/dL (3.5-5.0); Alkaline Phosphatase 117 U/L (38-126); Anion Gap 8 mmol/L; Blood Urea Nitrogen 16 mg/dL (9-20); Calcium 9.1 mg/dL (8.4-10.2); Carbon Dioxide 25 mmol/L (22-30); Chloride 105 mmol/L (98-107); Creatine Kinase 119 U/L (55-170); Glucose 86 mg/dL (74-99); Potassium 4.4 mmol/L (3.5-5.1); Sodium 138 mmol/L (137-145); Total Bilirubin 0.3 mg/dL (0.2-1.3); Total Protein 6.5 g/dL (6.3-8.2)
--- NOTE | 2019-07-19 19:08 | CT ---
EXAMINATION TYPE: CT angio chest DATE OF EXAM: 07/19/2019 6:42 PM COMPARISON: None HISTORY: SOB and chest pain CT DLP: 228.3 mGycm Automated exposure control for dose reduction was used. CONTRAST: CTA scan of the thorax is performed with IV Contrast, patient injected with 80 mL of Isovue 370, pulm onary embolism protocol. There are 3-D post processed images.. FINDINGS: There is diffuse pulmonary emphysema. There is no evidence of a pulmonary mass. There is some interst itial density at the lung bases consistent with scarring and atelectasis. There is no pleural effusio n. There is no pericardial effusion. there is no mediastinal adenopathy. Thoracic aorta is intact without evidence of aneurysm or dissect ion. There are no hilar masses. There is normal contrast opacification of the pulmonary arteries. There are no filling defects. There are small cortical cysts lateral left kidney. Bony thorax appears intact. There is no thoracic compression fracture. IMPRESSION: NO EVIDENCE OF PULMONARY EMBOLISM. MILD FIBROTIC CHANGES AND ATELECTASIS AT THE LUNG BASES. EMPHYSEMA .
[2019-07-19] MEDS ORDERED: ASPIRIN 81 MG PO STA (19:49)
[2019-07-19] MEDS ORDERED: NITROGLYCERIN SL TABS 0.4 MG TAB SUBLINGUAL PRN (19:49)
[2019-07-19] MEDS: SODIUM CHLORIDE 0.9% 1,000 ML IV SCH (20:29)
[2019-07-20] MEDS: SODIUM CHLORIDE 0.9% 1,000 ML IV SCH (04:27)
[2019-07-20 04:33] VITALS: RESP 18
[2019-07-20 07:16] LABS: Cholesterol 217 mg/dL (<200); HDL Cholesterol 46 mg/dL (40-60); LDL Cholesterol,Calculated 160 mg/dL (0-99); Triglycerides 57 mg/dL (<150)
[2019-07-20 08:16] VITALS: BP 109/66; PULSE 52; TEMP 97.9
[2019-07-20] MEDS ORDERED: ASPIRIN 325 MG TAB PO SCH ×2 (09:00)
--- NOTE | 2019-07-20 09:20 | P.CRDCN ---
History of Present Illness History of present illness: This is a pleasant 49-year-old male past medical history significant for CVA in 2013, COPD, chronic nicotine dependence, schizophrenia, depression and intermittent alcohol and marijuana use. He denies prior history of coronary artery disease and does not follow with a pad extraction tender for any reason. He states yesterday afternoon he was helping move furniture and clean up an area at the [facility] and he felt a sudden pop in the right anterior midportion of his chest. He states it felt like a rib broke. The pain radiated from the right hip to the right shoulder intermittently associated with activity and movement of his body. He states that he lifted his arms above his head felt a strain on the right side. The symptoms persisted for approximately 2 hours. He continued to do light activity including vacuuming and moving furniture. His pain was associated with nausea. Slowly over time his pain has subsided however it is mildly tender on exam. He denies associated shortness of breath, dizziness, palpitations or vomiting. He seen and examined resting comfortably lying flat in bed in no acute distress. EKG reveals sinus mechanism with no acute ST or T wave abnormalities noted. CTA chest is negative for pulmonary embolism with evidence of emphysema. Laboratory data reviewed, cardiac enzymes negative 3, WBC 10.1, hemoglobin 12.5, platelets 323, sodium 138, potassium 4.4, creatinine 0.85, magnesium 2.0, LDL 160, proBNP 85. He takes no daily cardiac medications. Most recent Lexiscan stress test performed September 2018 determined to be negative for reversibility. Abnormality noted secondary to diaphragmatic attenuation. Most recent echocardiogram obtained February 2019 revealed preserved LV systolic function with ejection fraction 55-60%. At the time of my exam: CONSTITUTIONAL: Denies fever. Denies chills. EYES: Denies blurred vision. Denies vision changes. Denies eye pain. EARS, NOSE, MOUTH & THROAT: Denies headache. Denies sore throat. Denies ear pain. CARDIOVASCULAR: Denies chest pain. Denies shortness of breath. Denies orthopnea. Denies PND. Denies palpitations. RESPIRATORY: Denies cough. GASTROINTESTINAL: Denies abdominal pain. Denies diarrhea. Denies constipation. Denies nausea. Denies vomiting. MUSCULOSKELETAL: Denies myalgias. INTEGUMENTARY: Denies pruitis. Denies rash. NEUROLOGIC: Denies numbness. Denies tingling. Denies weakness. PSYCHIATRIC: Denies anxiety. Denies depression. ENDOCRINE: Denies fatigue. Denies weight change. Denies polydipsia. Denies polyurina. GENITOURINARY: Denies burning, hematuria or urgency with micturation. HEMATOLOGIC: Denies history of anemia. Denies bleeding. Blood pressure 109/66 heart rate 52 afebrile maintaining oxygen saturation on room air GENERAL: This is a 49-year-old male in no apparent distress at the time of my examination. Frail appearance. HEENT: Head is atraumatic, normocephalic. Pupils are equal, round. Sclerae anicteric. Conjunctivae are clear. Mucous membranes of the mouth are moist. Neck is supple. There is no jugular venous distention. No carotid bruit is heard. LUNGS: Clear to auscultation no wheezes, rales or rhonchi. No chest wall tenderness is noted on palpation or with deep breathing. HEART: Regular rate and rhythm without murmurs, rubs or gallops. S1 and S2 heard. ABDOMEN: Soft, nontender. Bowel sounds are heard. No organomegaly noted. EXTREMITIES: No evidence of peripheral edema and no calf tenderness noted. VASCULAR: Radial and dorsalis pedis pulses palpated, no evidence of clubbing. NEUROLOGIC: Patient is awake, alert and oriented x3. ASSESSMENT Chest pain, skeletal skeletal. An acute coronary event has been ruled out. Dyslipidemia COPD History of CVA Chronic nicotine dependence PLAN An acute coronary event has been ruled out. Pain is atypical and related to musculoskeletal strain. Obtain x-ray of the right ribs. Lifestyle modifications recommended for lowering of LDL cholesterol as well as smoking cessation. No further cardiac workup at this time. We will follow as needed. Thank you kindly for this consultation. Nurse Practitioner note has been reviewed, I agree with a documented findings and plan of care. Patient was seen and examined. 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 Past Anesthesia/Blood Transfusion Reactions: Unable to Obtain Additional Past Anesthesia/Blood Transfusion Reaction / Comment(s): Pt has never had general/spinal anesthesia Past Psychological History: Anxiety, Bipolar, Depression, Schizoaffective Disor elin, Schizophrenia Additional Psychological History / Comment(s): . Smoking Status: Current every day smoker Past Alcohol Use History: None Reported Additional Past Alcohol Use History / Comment(s): Patient is homeless, states he smokes cigarettes and marijuana when he is able. Past Drug Use History: Marijuana Additional Drug Use History / Comment(s): Pt occasionally will smoke marijuana if it is available. - Past Family History Mother Family Medical History: CVA/TIA, Myocardial Infarction ([place]) Father Additional Family Medical History / Comment(s): Emphesema Medications and Allergies Home Medications Medication Instructions Recorded Confirmed Type No Known Home Medications 07/19/19 07/19/19 History Allergies Allergy/AdvReac Type Severity Reaction Status Date / Time horseradish Allergy Anaphylaxis Verified 07/19/19 18:16 shellfish derived [Shellfish] Allergy Anaphylaxis Verified 07/19/19 18:16 venom-wasp Allergy Anaphylaxis Verified 07/19/19 18:16 Physical Exam Vitals: Vital Signs Temp Pulse Pulse Resp BP BP BP 07/20/19 08:00 97.9 F 52 L 18 109/66 07/20/19 03:55 18 07/20/19 03:50 97.8 F 71 16 111/58 07/20/19 00:00 97.1 F L 15 115/67 07/19/19 20:45 97.4 F L 16 120/77 07/19/19 20:00 57 L 14 112/71 07/19/19 19:49 07/19/19 19:00 56 L 16 110/75 07/19/19 18:00 72 19 114/78 07/19/19 17:06 116/83 07/19/19 17:02 98.4 F 71 18 116/83 Pulse Ox 07/20/19 08:00 97 07/20/19 03:55 07/20/19 03:50 99 07/20/19 00:00 98 07/19/19 20:45 97 07/19/19 20:00 07/19/19 19:49 97 07/19/19 19:00 07/19/19 18:00 07/19/19 17:06 07/19/19 17:02 99 Intake and Output 07/19/19 07/20/19 07/20/19 22:59 06:59 14:59 Intake Total 480 Balance 480 Intake: Oral 480 Other: Weight 63.276 kg Results 07/19/19 17:15 07/19/19 18:05 Cardiac Enzymes 07/19/19 07/19/19 07/20/19 Range/Units 18:05 18:05 00:30 AST 23 (17-59) U/L Troponin I <0.012 <0.012 (0.000-0.034) ng/mL 07/20/19 Range/Units 06:39 AST (17-59) U/L Troponin I <0.012 (0.000-0.034) ng/mL Coagulation 07/19/19 Range/Units 17:15 PT 10.1 (9.0-12.0) sec APTT 25.6 (22.0-30.0) sec Lipids 07/20/19 Range/Units 06:39 Triglycerides 57 (<150) mg/dL Cholesterol 217 H (<200) mg/dL HDL Cholesterol 46 (40-60) mg/dL CBC 07/19/19 Range/Units 17:15 WBC 10.1 (3.8-10.6) k/uL RBC 4.26 L (4.30-5.90) m/uL Hgb 12.5 L (13.0-17.5) gm/dL Hct 37.2 L (39.0-53.0) % Plt Count 323 (150-450) k/uL Comprehensive Metabolic Panel 07/19/19 Range/Units 18:05 Sodium 138 (137-145) mmol/L Potassium 4.4 (3.5-5.1) mmol/L Chloride 105 (98-107) mmol/L Carbon Dioxide 25 (22-30) mmol/L BUN 16 (9-20) mg/dL Creatinine 0.85 (0.66-1.25) mg/dL Glucose 86 (74-99) mg/dL Calcium 9.1 (8.4-10.2) mg/dL AST 23 (17-59) U/L ALT 19 L (21-72) U/L Alkaline Phosphatase 117 (38-126) U/L Total Protein 6.5 (6.3-8.2) g/dL Albumin 3.9 (3.5-5.0) g/dL Current Medications Generic Name Dose Route Start Last Admin Trade Name Gregorio PRN Reason Stop Dose Admin Aspirin 325 mg 07/20/19 09:00 Aspirin PO DAILY HANNAH Sodium Chloride 1,000 mls @ 100 mls/hr 07/19/19 20:00 07/20/19 04:27 Saline 0.9% IV 100 mls/hr .Q10H HANNAH Administration Nitroglycerin 0.4 mg 07/19/19 19:49 Nitrostat SUBLINGUAL Q5M PRN Chest Pain Intake and Output 07/19/19 07/20/19 07/20/19 22:59 06:59 14:59 Intake Total 480 Balance 480 Intake: Oral 480 Other: Weight 63.276 kg 07/19/19 17:15 07/19/19 18:05
[2019-07-20] MEDS ORDERED: ASPIRIN 81 MG PO SCH (09:30)
--- NOTE | 2019-07-20 11:42 | XR ---
EXAMINATION TYPE: XR ribs RT DATE OF EXAM: 07/20/2019 COMPARISON: 07/17/2019 HISTORY: Chest pain TECHNIQUE: 2 view right ribs FINDINGS: No acute fractures or dislocations are evident. No pneumothorax is evident. IMPRESSION: 1. Normal 2 view right ribs
--- NOTE | 2019-07-20 18:54 | HP ---
HISTORY AND PHYSICAL CHIEF COMPLAINT: Chest pain. HISTORY OF PRESENT ILLNESS: This is another admission for this 49-year-old male who comes frequently to the emergency room for chest pain. He was in the hospital in December of this year and was not found to have any evidence of cardiac disease. He presented to the emergency room this time with normal EKG and enzymes, but was admitted for further workup. He denies shortness of breath or diaphoresis. He describes the pain as being on the right side of the chest and "going up and down the right side of [his] chest and abdomen." REVIEW OF SYSTEMS: Otherwise unremarkable. He has had no cough, hemoptysis, pleuritic pain, sputum production, trauma, etc. He has never had heart disease in the past. He did have a CVA in 2012. Review of systems is otherwise normal. Past medical history, family history, and personal and social histories are unremarkable and otherwise unchanged. He does not take any medication. He smokes a pack and a half of cigarettes a day. PHYSICAL EXAMINATION: Blood pressure is 141/84 with a pulse of 86, respirations of 30, and he is afebrile. In general he appeared to be slender and in no acute distress. Skin color is normal. Skin is warm and dry. Lymph nodes not enlarged. Head, ears, eyes, nose, mouth and throat are normal and neck veins are not distended. Thyroid is not enlarged. Chest is clear. Cardiac exam is normal with no murmurs or extra sounds. Abdomen is soft and nontender. Extremities are normal. Neurologically he is intact. IMPRESSION: 1. Chest pain. 2. Heavy smoker. 3. Chronic obstructive pulmonary disease. PLAN: 1. Bed rest. 2. IV fluids. 3. Serial EKGs and enzymes. 4. Cardiology consult. MMODL / IJN: [id number] /
--- NOTE | 2019-07-20 20:01 | DS ---
DISCHARGE SUMMARY CHIEF COMPLAINT: Chest pain. HISTORY OF PRESENT ILLNESS AND PHYSICAL EXAMINATION: Details of this man's history and physical can be found in the initial workup. LABORATORY STUDIES: While he was in the hospital he had laboratory studies, details of which can be found in the laboratory section of his chart. COURSE IN THE HOSPITAL: After admission he was placed on bedrest and started on intravenous fluids and had serial EKGs and enzymes. These were normal. He was seen by Cardiology and they felt that he required no further workup. He would have been discharged, but he signed out AMA. FINAL DIAGNOSES: 1. Atypical chest pain. 2. Chronic obstructive pulmonary disease. OPERATIONS: None. CONSULTATION: Cardiology. He is improved. MMODL / IJN: [id number] /
== END 2019-07-20 10:20 | disposition left against medical advice (07) ==
LOC: EC 17:00 → 1SOBS 19:50
PROVIDERS: ADMIT Family Medicine; ATTEND Family Medicine
DX: R07.89 Other chest pain (principal); R00.2 Palpitations; R11.0 Nausea; J44.9 Chronic obstructive pulmonary disease, unspecified; F17.210 Nicotine dependence, cigarettes, uncomplicated; E78.5 Hyperlipidemia, unspecified; I25.2 Old myocardial infarction; F31.9 Bipolar disorder, unspecified; F25.9 Schizoaffective disorder, unspecified; F41.9 Anxiety disorder, unspecified; Z86.73 Personal history of transient ischemic attack (TIA), and cerebral infarction without residual deficits; Z59.0 Homelessness; Z82.49 Family history of ischemic heart disease and other diseases of the circulatory system; Z82.3 Family history of stroke; Z83.6 Family history of other diseases of the respiratory system; Z91.013 Allergy to seafood; Z91.018 Allergy to other foods; Z91.048 Other nonmedicinal substance allergy status
CPT/HCPCS: 96361; 96374; 96375; 99291; 36415; 93005; 83880; 80061; 80053; 82550; 83690; 83735; 84484 ×2; 85025; 85610; 85730; 71100; 71275; G0378 ×2; J2270; J1100; J1885; Q9967

== ENCOUNTER 2019-07-27 22:01 | Inpatient (IN) | payer OTHER ==
[2019-07-27] MEDS ORDERED: IPRATROPIUM-ALBUTEROL 3 ML NEB INHALATION STA (23:14)
[2019-07-27] MEDS ORDERED: predniSONE 20 MG TAB PO STA (23:15)
--- NOTE | 2019-07-27 23:22 | ED ---
SOB HPI - General Chief Complaint: Shortness of Breath Stated Complaint: SOB Time Seen by Provider: 07/27/19 22:51 Source: patient Mode of arrival: ambulatory Limitations: no limitations - History of Present Illness Initial Comments: Patient presents to the ED complaining of having a productive cough and dyspnea for the past week or so. Patient denies having any pain. Patient denies fever or chills, sore throat, headache, chest pain, hemoptysis, palpitations, dizziness, nausea or vomiting, abdominal pain, urinary symptoms, decreased urine output, leg or calf swelling or tenderness, or any other symptoms or complaints. Patient is a smoker and has a history of COPD. - Related Data Home Medications Medication Instructions Recorded Confirmed No Known Home Medications 07/19/19 07/27/19 Allergies Allergy/AdvReac Type Severity Reaction Status Date / Time horseradish Allergy Anaphylaxis Verified 07/27/19 23:07 shellfish derived [Shellfish] Allergy Anaphylaxis Verified 07/27/19 23:07 venom-wasp Allergy Anaphylaxis Verified 07/27/19 23:07 Review of Systems ROS Statement: Those systems with pertinent positive or pertinent negative responses have been documented in the HPI. ROS Other: All systems not noted in ROS Statement are negative. 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 Past Anesthesia/Blood Transfusion Reactions: Unable to Obtain Additional Past Anesthesia/Blood Transfusion Reaction / Comment(s): Pt has never had general/spinal anesthesia Past Psychological History: Anxiety, Bipolar, Depression, Schizoaffective Disorder, Schizophrenia Smoking Status: Current every day smoker Past Alcohol Use History: None Reported Past Drug Use History: Marijuana - Past Family History Mother Family Medical History: CVA/TIA, Myocardial Infarction ([place]) Father Additional Family Medical History / Comment(s): Emphesema General Exam Limitations: no limitations General appearance: alert, in no apparent distress, other (Patient appears comfortable as he is eating a sandwich.) Head exam: Present: atraumatic, normocephalic Eye exam: Present: normal appearance, EOMI ENT exam: Present: mucous membranes moist Neck exam: Present: other (Trachea is midline) Respiratory exam: Present: wheezes. Absent: respiratory distress, rales, rhonchi, stridor Cardiovascular Exam: Present: regular rate, normal rhythm, normal heart sounds, other (Normal radial pulses bilaterally) GI/Abdominal exam: Present: soft. Absent: distended, tenderness Extremities exam: Absent: tenderness, pedal edema, calf tenderness Neurological exam: Present: alert, oriented X3. Absent: motor sensory deficit Psychiatric exam: Present: normal affect, normal mood Skin exam: Present: warm, dry, intact, normal color Course Vital Signs 07/27/19 07/27/19 07/27/19 22:12 22:39 22:40 Temperature 98.6 F Pulse Rate 82 87 Respiratory 20 16 18 Rate Blood Pressure 119/69 116/72 O2 Sat by Pulse 96 96 Oximetry 07/27/19 07/27/19 07/27/19 23:49 23:58 23:59 Temperature 98 F Pulse Rate 89 90 83 Respiratory 18 Rate Blood Pressure 82/56 O2 Sat by Pulse 95 Oximetry 07/28/19 07/28/19 00:22 01:29 Temperature 98 F 98.7 F Pulse Rate 90 86 Respiratory 18 18 Rate Blood Pressure 108/59 111/80 O2 Sat by Pulse 94 L 94 L Oximetry - Reevaluation(s) Reevaluation #1: 07/28/19 01:13 Patient remains alert and breathing comfortably. Patient's wheezing has now improved on exam. Patient states that his dyspnea has improved with the DuoNeb treatment that he was given in the ED. patient denies development of any new symptoms while in the ED. Patient is aware of his test results, and he agrees with hospital admission at this time. 07/28/19 01:18 Case, H&P, test results and ED management thus far were discussed with Dr. Schofield within who accepts floor admission. He has no further recommendations at this time. Medical Decision Making - Medical Decision Making Patient's chest x-ray shows bilateral patchy infiltrates. Patient has leukocyto sis. I suspect that the patient's symptoms are likely secondary to pneumonia and COPD exacerbation. Patient was given IV ceftriaxone and IV azithromycin for treatment of community-acquired pneumonia in the ED. Patient is hemodynamically stable. Patient reports that he is homeless, and I think that he will be better treated for his pneumonia in the hospital. Dr. Schofield has accepted hospital admission. - Lab Data Result diagrams: 07/27/19 23:05 07/27/19 23:05 Lab Results 07/27/19 07/27/19 07/27/19 Range/Units 23:05 23:05 23:05 WBC 20.2 H (3.8-10.6) k/uL RBC 3.95 L (4.30-5.90) m/uL Hgb 11.0 L (13.0-17.5) gm/dL Hct 35.5 L (39.0-53.0) % MCV 89.8 (80.0-100.0) fL MCH 27.8 (25.0-35.0) pg MCHC 31.0 (31.0-37.0) g/dL RDW 14.4 (11.5-15.5) % Plt Count 371 (150-450) k/uL Neutrophils % 84 % Lymphocytes % 7 % Monocytes % 5 % Eosinophils % 0 % Basophils % 2 % Neutrophils # 17.0 H (1.3-7.7) k/uL Lymphocytes # 1.4 (1.0-4.8) k/uL Monocytes # 1.0 (0-1.0) k/uL Eosinophils # 0.1 (0-0.7) k/uL Basophils # 0.4 H (0-0.2) k/uL PT 9.7 (9.0-12.0) sec INR 0.9 (<1.2) APTT 26.5 (22.0-30.0) sec Sodium 133 L (137-145) mmol/L Potassium 4.2 (3.5-5.1) mmol/L Chloride 97 L (98-107) mmol/L Carbon Dioxide 23 (22-30) mmol/L Anion Gap 13 mmol/L BUN 13 (9-20) mg/dL Creatinine 0.72 (0.66-1.25) mg/dL Est GFR (CKD-EPI)AfAm >90 (>60 ml/min/1.73 sqM) Est GFR (CKD-EPI)NonAf >90 (>60 ml/min/1.73 sqM) Glucose 92 (74-99) mg/dL Calcium 8.7 (8.4-10.2) mg/dL Total Bilirubin 0.5 (0.2-1.3) mg/dL AST 38 (17-59) U/L ALT 28 (21-72) U/L Alkaline Phosphatase 148 H (38-126) U/L Troponin I (0.000-0.034) ng/mL NT-Pro-B Natriuret Pep pg/mL Total Protein 6.5 (6.3-8.2) g/dL Albumin 3.6 (3.5-5.0) g/dL 07/27/19 07/27/19 Range/Units 23:05 23:05 WBC (3.8-10.6) k/uL RBC (4.30-5.90) m/uL Hgb (13.0-17.5) gm/dL Hct (39.0-53.0) % MCV (80.0-100.0) fL MCH (25.0-35.0) pg MCHC (31.0-37.0) g/dL RDW (11.5-15.5) % Plt Count (150-450) k/uL Neutrophils % % Lymphocytes % % Monocytes % % Eosinophils % % Basophils % % Neutrophils # (1.3-7.7) k/uL Lymphocytes # (1.0-4.8) k/uL Monocytes # (0-1.0) k/uL Eosinophils # (0-0.7) k/uL Basophils # (0-0.2) k/uL PT (9.0-12.0) sec INR (<1.2) APTT (22.0-30.0) sec Sodium (137-145) mmol/L Potassium (3.5-5.1) mmol/L Chloride (98-107) mmol/L Carbon Dioxide (22-30) mmol/L Anion Gap mmol/L BUN (9-20) mg/dL Creatinine (0.66-1.25) mg/dL Est GFR (CKD-EPI)AfAm (>60 ml/min/1.73 sqM) Est GFR (CKD-EPI)NonAf (>60 ml/min/1.73 sqM) Glucose (74-99) mg/dL Calcium (8.4-10.2) mg/dL Total Bilirubin (0.2-1.3) mg/dL AST (17-59) U/L ALT (21-72) U/L Alkaline Phosphatase (38-126) U/L Troponin I <0.012 (0.000-0.034) ng/mL NT-Pro-B Natriuret Pep 81 pg/mL Total Protein (6.3-8.2) g/dL Albumin (3.5-5.0) g/dL - EKG Data EKG Comments: EKG is limited secondary to motion, normal sinus rhythm, ventricular rate of 88 bpm, normal HI and QRS intervals, normal QT interval, normal axis, no ST or T- wave abnormality - Radiology Data Radiology results: image reviewed (Chest x-ray shows patchy bilateral infiltrates) Disposition Clinical Impression: COPD exacerbation, Pneumonia Disposition: ADMITTED IP TO THIS HOSP Condition: Stable Is patient prescribed a controlled substance at d/c from ED?: No Time of Disposition: 01:18 Decision Date: 07/28/19 Decision Time: 01:14
--- NOTE | 2019-07-27 23:28 | XR ---
EXAMINATION TYPE: XR chest 2V DATE OF EXAM: 07/27/2019 COMPARISON: 07/17/2019 HISTORY: Cough TECHNIQUE: Frontal and lateral views of the chest are obtained. FINDINGS: There is some coarse infiltrate in the mid and lower lung driver. There is no heart failur e. Heart size is normal. There are no hilar masses. There is no pleural effusion. There is minimal pl eural reaction at the right lung base. IMPRESSION: There is new bilateral pneumonia compared to old exam. No heart failure. Mild right basi lar pleural reaction is new compared to last exam.
[2019-07-28 00:51] LABS: Basophils # (A) 0.4 k/uL (0-0.2); Basophils % (A) 2 %; Eosinophils # (A) 0.1 k/uL (0-0.7); Eosinophils % (A) 0 %; HCT 35.5 % (39.0-53.0); Lymphocytes # (A) 1.4 k/uL (1.0-4.8); Lymphocytes % (A) 7 %; MCH 27.8 pg (25.0-35.0); MCV 89.8 fL (80.0-100.0); Mean Platelet Volume 6.7; Monocytes % (A) 5 %; Neutrophils % (A) 84 %; Platelet Count 371 k/uL (150-450); RBC 3.95 m/uL (4.30-5.90); RDW 14.4 % (11.5-15.5); WBC 20.2 k/uL (3.8-10.6)
[2019-07-28 01:03] LABS: INR 0.9 (<1.2); Partial Thromboplastin Time 26.5 sec (22.0-30.0); Prothrombin Time 9.7 sec (9.0-12.0)
[2019-07-28 01:08] LABS: ALT 28 U/L (21-72); AST 38 U/L (17-59); African American GFR (CKD) >90 (>60 ml/min/1.73 sqM); Albumin 3.6 g/dL (3.5-5.0); Alkaline Phosphatase 148 U/L (38-126); Anion Gap 13 mmol/L; Blood Urea Nitrogen 13 mg/dL (9-20); Calcium 8.7 mg/dL (8.4-10.2); Carbon Dioxide 23 mmol/L (22-30); Chloride 97 mmol/L (98-107); Glucose 92 mg/dL (74-99); Potassium 4.2 mmol/L (3.5-5.1); Sodium 133 mmol/L (137-145); Total Bilirubin 0.5 mg/dL (0.2-1.3); Total Protein 6.5 g/dL (6.3-8.2)
[2019-07-28] MEDS ORDERED: AZITHROMYCIN 500 MG in SODIUM CHLORIDE 0.9% 250 ML IVPB STA (01:12)
--- NOTE | 2019-07-28 15:05 | HP ---
HISTORY AND PHYSICAL CHIEF COMPLAINT: Shortness of breath, diaphoresis, and pneumonitis. HISTORY OF PRESENT ILLNESS: This is another admission for this 49-year-old white male. He was just in the hospital recently with pneumonia. He has never followed up in the office. Back in the emergency room with fever, chills, cough, and now was diagnosed as having exacerbation COPD and pneumonitis. REVIEW OF SYSTEMS: He has been clammy. He has had no vomiting. He has not coughed up any blood. Review of systems otherwise unremarkable. Past medical history, family history and personal and social histories are unremarkable and noncontributory otherwise. He smokes about 2 packs of cigarettes a day. He is not allergic to any medication and not taking any. PHYSICAL EXAMINATION: Blood pressure 142/89 with a pulse of 88, respirations of 39, temperature of a 100. GENERAL: He appeared to be older than his stated age. Nutrition is marginal. Skin was slightly clammy. Head, ears, eyes, nose, mouth, and throat were normal. Lymph nodes not enlarged. Chest demonstrated increased AP diameter with poor breath sounds. There were rales, rhonchi and decreased breath sounds throughout. Cardiac exam demonstrates sinus rhythm with no murmurs or extra sounds. Abdomen is flat, soft and there are no masses or visceromegaly. Extremities are normal. Neurologically, he is intact. He is admitted to the hospital diagnoses: 1. Bilateral lower lobe bronchopneumonia. 2. Chronic obstructive pulmonary disease. PLAN: 1. Bed rest. 2. IV fluids. 3. IV antibiotics. 4. Updrafts. MMODL / IJN: [id number] /
[2019-07-28] MEDS: NICOTINE 21MG/24HR PATCH TRANSDERM SCH (15:07)
[2019-07-28] MEDS: AZITHROMYCIN 500 MG TAB PO SCH (21:01)
[2019-07-29 07:43] LABS: Basophils # (A) 0.1 k/uL (0-0.2); Basophils % (A) 0 %; Eosinophils # (A) 0.2 k/uL (0-0.7); Eosinophils % (A) 1 %; Hypochromasia Slight; Lymphocytes # (A) 2.8 k/uL (1.0-4.8); Lymphocytes % (A) 18 %; MCHC 29.8 g/dL (31.0-37.0); MCV 93.9 fL (80.0-100.0); Mean Platelet Volume 7.1; Monocytes # (A) 0.8 k/uL (0-1.0); Monocytes % (A) 5 %; Neutrophils # (A) 11.6 k/uL (1.3-7.7); Neutrophils % (A) 74 %; Platelet Count 510 k/uL (150-450); RBC 3.93 m/uL (4.30-5.90); RDW 14.3 % (11.5-15.5); WBC 15.8 k/uL (3.8-10.6)
[2019-07-29 07:49] LABS: ALT 30 U/L (21-72); AST 28 U/L (17-59); African American GFR (CKD) >90 (>60 ml/min/1.73 sqM); Albumin 3.3 g/dL (3.5-5.0); Alkaline Phosphatase 106 U/L (38-126); Anion Gap 10 mmol/L; Blood Urea Nitrogen 12 mg/dL (9-20); Calcium 8.8 mg/dL (8.4-10.2); Carbon Dioxide 26 mmol/L (22-30); Chloride 102 mmol/L (98-107); Glucose 91 mg/dL (74-99); Sodium 138 mmol/L (137-145); Total Bilirubin 0.3 mg/dL (0.2-1.3); Total Protein 6.1 g/dL (6.3-8.2)
[2019-07-29] MEDS: NICOTINE 21MG/24HR PATCH TRANSDERM SCH (09:46)
[2019-07-29 11:38] VITALS: BMI 18.7
[2019-07-29] MEDS: guaiFENesin SYRUP 100MG/5ML 200 MG/10 ML CUP PO PRN ×2 (13:26→20:24)
--- NOTE | 2019-07-29 19:43 | PN ---
PROGRESS NOTE CHIEF COMPLAINT: Pneumonitis. HISTORY OF PRESENT ILLNESS: This gentleman is breathing a little bit more easily and he is not vomiting. He has a persistent cough, however. He has had no chills or fever. PHYSICAL EXAMINATION: Breath sounds are diminished due to AP diameter increase. He has very poor breath sounds throughout with an occasional rhonchi and occasional wheezes in both lung driver. Cardiac exam is normal. IMPRESSION: 1. Pneumonitis. 2. Exacerbation of chronic obstructive pulmonary disease. PLAN: Plan to continue with antibiotics, updrafts, steroids and antibiotics. MMODL / IJN: [id number] /
[2019-07-29] MEDS: AZITHROMYCIN 500 MG TAB PO SCH (20:17)
[2019-07-30] MEDS: guaiFENesin SYRUP 100MG/5ML 200 MG/10 ML CUP PO PRN (02:27)
[2019-07-30] MEDS: NICOTINE 21MG/24HR PATCH TRANSDERM SCH (08:30)
--- NOTE | 2019-07-30 19:49 | PN ---
PROGRESS NOTE CHIEF COMPLAINT: Pneumonitis and exacerbation of COPD. HISTORY OF PRESENT ILLNESS: This gentleman is improving. His breathing is a little bit better each day. He is still dyspneic and requires oxygen. He is complaining now of right posterior chest pain. He has had no hemoptysis. There is no history of trauma. PHYSICAL EXAMINATION: Color is good. Chest demonstrates his increased AP diameter. Breath sounds are extremely poor throughout with scattered rales and rhonchi. There is no tenderness in the right posterior chest. IMPRESSION: 1. Pneumonitis. 2. Chronic obstructive pulmonary disease. 3. Right posterior chest pain. PLAN: Continue with current treatment and increase activity. He will probably be able to go home in the next day or two. MMODL / IJN: [id number] /
[2019-07-30] MEDS: AZITHROMYCIN 500 MG TAB PO SCH (21:22)
[2019-07-31] MEDS: guaiFENesin SYRUP 100MG/5ML 200 MG/10 ML CUP PO PRN (00:20)
[2019-07-31] MEDS: NICOTINE 21MG/24HR PATCH TRANSDERM SCH (09:00)
[2019-07-31 13:46] VITALS: BP 116/71; PULSE 86; RESP 18; TEMP 97.4
--- NOTE | 2019-07-31 13:48 | XR ---
EXAMINATION TYPE: XR chest 2V DATE OF EXAM: 07/31/2019 COMPARISON: X-ray dated 07/27/[address] dated 07/19/2019 HISTORY: Pneumonia with history of COPD TECHNIQUE: Frontal and lateral views of the chest are obtained. FINDINGS: Pulmonary hyperinflation with flattening of the diaphragms relates underlying COPD. Hazy l eft midlung opacity is unchanged from 07/27/2019. Clearing of the bibasilar pneumonia seen on the prio r. Cardiomediastinal silhouette is within normal limits. Minimal degenerative changes of the spine. IMPRESSION: 1. Clearing of the bibasilar pneumonia. 2. Hazy left midlung opacity is seen as groundglass nodules on the prior CT. Follow-up CT in 3 months is recommended to ensure resolution and exclude neoplastic groundglass pulmonary nodule.
[2019-07-31] MEDS ORDERED: CEPHALEXIN 500 MG CAP PO SCH (18:00)
--- NOTE | 2019-07-31 21:45 | DS ---
DISCHARGE SUMMARY CHIEF COMPLAINT: Fever, cough, shortness of breath and left lower lobe pneumonia. HISTORY OF PRESENT ILLNESS AND PHYSICAL EXAMINATION: Details of this man's history and physical can be found in the initial workup. LABORATORY STUDIES: While he was in the hospital he had laboratory studies, details of which can be found in the laboratory section of his chart. COURSE IN THE HOSPITAL: After admission he was placed at bedrest, started on intravenous fluids, updrafts and IV antibiotics. He slowly improved. Chest cleared and he was able to ambulate without oxygen. A follow-up x-ray demonstrated some residual pneumonitis, but it was felt that he could go home. He will go home on diet and activity as tolerated. He will be on Keflex 500 q.i.d. and Zithromax 500 mg once a day. He will be seen in the office in a day or two. FINAL DIAGNOSES: 1. Left lower lobe pneumonitis. 2. Exacerbation of chronic obstructive pulmonary disease. 3. Nicotine abuse. OPERATIONS: None. CONSULTATIONS: None. He is improved. MMODL / GURMEETN: [id number] /
[2019-08-01] MEDS ORDERED: AZITHROMYCIN 500 MG TAB PO SCH (09:00)
== END 2019-07-31 14:59 | disposition home or self-care (01) | DRG 190 ==
LOC: EC 22:01 → 3SCARD 07-28 01:22 → 4MS4W 07-28 15:30
PROVIDERS: ADMIT Family Medicine; ATTEND Family Medicine
DX: J44.1 Chronic obstructive pulmonary disease with (acute) exacerbation (principal); J18.9 Pneumonia, unspecified organism; J44.0 Chronic obstructive pulmonary disease with (acute) lower respiratory infection; F17.210 Nicotine dependence, cigarettes, uncomplicated; F25.9 Schizoaffective disorder, unspecified; F31.9 Bipolar disorder, unspecified; I25.2 Old myocardial infarction; Z59.0 Homelessness; Z86.73 Personal history of transient ischemic attack (TIA), and cerebral infarction without residual deficits; Z82.49 Family history of ischemic heart disease and other diseases of the circulatory system; Z82.3 Family history of stroke; Z91.030 Bee allergy status; Z91.013 Allergy to seafood; Z87.01 Personal history of pneumonia (recurrent)
CPT/HCPCS: 36415; 71046; 80053; 83605; 83880; 84484; 85025; 85610; 85730; 87040; 93005; 94640; 96365; 96375; 99285

== ENCOUNTER 2019-08-06 20:38 | Observation (INO) | payer OTHER ==
[2019-08-06] MEDS ORDERED: SODIUM CHLORIDE 0.9% 1,000 ML IV STA (21:39)
--- NOTE | 2019-08-06 21:42 | ED ---
Neuro HPI - General Chief Complaint: Neuro Symptoms/Deficit Stated Complaint: R Side Issues/Numbness Time Seen by Provider: 08/06/19 21:11 Source: patient, RN notes reviewed, old records reviewed Mode of arrival: ambulatory Limitations: no limitations - History of Present Illness Is the patient presenting with stroke symptoms?: No -: days(s) Initial Comments: This is a 49-year-old male the ER for evaluation presents today for evaluation regards to right arm weakness right leg weakness is tripping over his feet dropping things at home. Patient also complaining of headache. States he has history of aneurysm in his brain but unsure of other symptoms or causes. Patient has symptoms 2-3 days. Denies drugs or alcohol Location: right arm, right leg History of same: Yes Place: home Severity: mild Quality: weak Improves With: none Worsens With: none On Anticoagulants: No Context: gradual onset Associated Symptoms: denies other symptoms Treatments Prior to Arrival: none - Related Data Home Medications: Previous Rx's Medication Instructions Recorded Azithromycin [Zithromax] 500 mg PO DAILY #7 tab 07/31/19 Cephalexin [Keflex] 500 mg PO QID #30 cap 07/31/19 Allergies/Adverse Reactions: Allergies Allergy/AdvReac Type Severity Reaction Status Date / Time horseradish Allergy Anaphylaxis Verified 08/06/19 21:03 shellfish derived [Shellfish] Allergy Anaphylaxis Verified 08/06/19 21:03 venom-wasp Allergy Anaphylaxis Verified 08/06/19 21:03 Review of Systems ROS Statement: Those systems with pertinent positive or pertinent negative responses have been documented in the HPI. ROS Other: All systems not noted in ROS Statement are negative. General Exam - General Exam Comments Initial Comments: NIH of 0 Limitations: no limitations General appearance: alert, in no apparent distress Head exam: Present: atraumatic, normocephalic, normal inspection Eye exam: Present: normal appearance, PERRL, EOMI. Absent: scleral icterus, conjunctival injection, periorbital swelling ENT exam: Present: normal exam, mucous membranes moist Neck exam: Present: normal inspection. Absent: tenderness, meningismus, lymphadenopathy Respiratory exam: Present: normal lung sounds bilaterally. Absent: respiratory distress, wheezes, rales, rhonchi, stridor Cardiovascular Exam: Present: regular rate, normal rhythm, normal heart sounds. Absent: systolic murmur, diastolic murmur, rubs, gallop, clicks GI/Abdominal exam: Present: soft, normal bowel sounds. Absent: distended, tenderness, guarding, rebound, rigid Extremities exam: Present: normal inspection, full ROM, normal capillary refill. Absent: tenderness, pedal edema, joint swelling, calf tenderness Back exam: Present: normal inspection Neurological exam: Present: alert, oriented X3, CN II-XII intact Psychiatric exam: Present: normal affect, normal mood Skin exam: Present: warm, dry, intact, normal color. Absent: rash Stroke MDM - Lab Data Result diagrams: 08/06/19 22:00 08/06/19 22:00 Lab Results 08/06/19 08/06/19 08/06/19 Range/Units 22:00 22:00 22:00 WBC 10.3 (3.8-10.6) k/uL RBC 3.73 L (4.30-5.90) m/uL Hgb 10.8 L (13.0-17.5) gm/dL Hct 33.7 L (39.0-53.0) % MCV 90.3 (80.0-100.0) fL MCH 29.1 (25.0-35.0) pg MCHC 32.2 (31.0-37.0) g/dL RDW 14.4 (11.5-15.5) % Plt Count 694 H (150-450) k/uL Neutrophils % 55 % Lymphocytes % 35 % Monocytes % 4 % Eosinophils % 3 % Basophils % 1 % Neutrophils # 5.7 (1.3-7.7) k/uL Lymphocytes # 3.6 (1.0-4.8) k/uL Monocytes # 0.5 (0-1.0) k/uL Eosinophils # 0.3 (0-0.7) k/uL Basophils # 0.1 (0-0.2) k/uL PT 9.9 (9.0-12.0) sec INR 0.9 (<1.2) APTT 25.9 (22.0-30.0) sec Sodium 137 (137-145) mmol/L Potassium 4.3 (3.5-5.1) mmol/L Chloride 107 (98-107) mmol/L Carbon Dioxide 25 (22-30) mmol/L Anion Gap 5 mmol/L BUN 14 (9-20) mg/dL Creatinine 0.90 (0.66-1.25) mg/dL Est GFR (CKD-EPI)AfAm >90 (>60 ml/min/1.73 sqM) Est GFR (CKD-EPI)NonAf >90 (>60 ml/min/1.73 sqM) Glucose 95 (74-99) mg/dL Calcium 9.0 (8.4-10.2) mg/dL Total Bilirubin 0.1 L (0.2-1.3) mg/dL AST 23 (17-59) U/L ALT 24 (21-72) U/L Alkaline Phosphatase 94 (38-126) U/L Creatine Kinase 271 H (55-170) U/L Troponin I (0.000-0.034) ng/mL Total Protein 5.9 L (6.3-8.2) g/dL Albumin 3.3 L (3.5-5.0) g/dL 08/06/19 Range/Units 22:00 WBC (3.8-10.6) k/uL RBC (4.30-5.90) m/uL Hgb (13.0-17.5) gm/dL Hct (39.0-53.0) % MCV (80.0-100.0) fL MCH (25.0-35.0) pg MCHC (31.0-37.0) g/dL RDW (11.5-15.5) % Plt Count (150-450) k/uL Neutrophils % % Lymphocytes % % Monocytes % % Eosinophils % % Basophils % % Neutrophils # (1.3-7.7) k/uL Lymphocytes # (1.0-4.8) k/uL Monocytes # (0-1.0) k/uL Eosinophils # (0-0.7) k/uL Basophils # (0-0.2) k/uL PT (9.0-12.0) sec INR (<1.2) APTT (22.0-30.0) sec Sodium (137-145) mmol/L Potassium (3.5-5.1) mmol/L Chloride (98-107) mmol/L Carbon Dioxide (22-30) mmol/L Anion Gap mmol/L BUN (9-20) mg/dL Creatinine (0.66-1.25) mg/dL Est GFR (CKD-EPI)AfAm (>60 ml/min/1.73 sqM) Est GFR (CKD-EPI)NonAf (>60 ml/min/1.73 sqM) Glucose (74-99) mg/dL Calcium (8.4-10.2) mg/dL Total Bilirubin (0.2-1.3) mg/dL AST (17-59) U/L ALT (21-72) U/L Alkaline Phosphatase (38-126) U/L Creatine Kinase (55-170) U/L Troponin I <0.012 (0.000-0.034) ng/mL Total Protein (6.3-8.2) g/dL Albumin (3.5-5.0) g/dL - NIH Stroke Scale 1a. Level of Consciousness: (0) alert 1b. LOC Questions: (0) answers correctly 1c. LOC Commands: (0) performs tasks correctly 2. Best Gaze: (0) normal 3. Visual: (0) no visual loss 4. Facial Palsy: (0) normal symmetrical movement 5a. Motor Arm Left: (0) no drift 5b. Motor Arm Right: (0) no drift 6a. Motor Leg Left: (0) no drift 6b. Motor Leg Right: (0) no drift 7. Limb Ataxia: (0) absent 8. Sensory: (0) normal 9. Best Language: (0) no aphasia 10. Dysarthria: (0) normal 11. 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 Past Anesthesia/Blood Transfusion Reactions: Unable to Obtain Additional Past Anesthesia/Blood Transfusion Reaction / Comment(s): Pt has never had general/spinal anesthesia Past Psychological History: Anxiety, Bipolar, Depression, Schizoaffective Disorder, Schizophrenia Smoking Status: Current some day smoker Past Alcohol Use History: None Reported Past Drug Use History: Marijuana - Past Family History Mother Family Medical History: CVA/TIA, Myocardial Infarction ([place]) Father Additional Family Medical History / Comment(s): Emphesema Course Vital Signs 08/06/19 08/06/19 08/06/19 20:41 21:59 22:00 Temperature 97.8 F Pulse Rate 75 68 74 Respiratory 16 20 20 Rate Blood Pressure 100/62 O2 Sat by Pulse 98 97 96 Oximetry 08/06/19 22:30 Temperature Pulse Rate 76 Respiratory 20 Rate Blood Pressure 104/67 O2 Sat by Pulse 98 Oximetry - Reevaluation(s) Reevaluation #1: 08/06/19 23:43 Medical records reviewed Reevaluation #2: 08/06/19 23:43 Patient symptoms may be improving here in the ER, no appreciable deficits on exam - Consultations Consultation #1: Spoke with Dr. Schofield who is okay for admission Disposition Clinical Impression: Transient cerebral ischemia Disposition: ADMITTED IP TO THIS HOSP Condition: Fair Is patient prescribed a controlled substance at d/c from ED?: No Referrals: Flash Schofield MD [Primary Care Provider] - 1-2 days
[2019-08-06 22:21] LABS: Basophils # (A) 0.1 k/uL (0-0.2); Basophils % (A) 1 %; Eosinophils # (A) 0.3 k/uL (0-0.7); Eosinophils % (A) 3 %; HCT 33.7 % (39.0-53.0); HGB 10.8 gm/dL (13.0-17.5); INR 0.9 (<1.2); Lymphocytes # (A) 3.6 k/uL (1.0-4.8); Lymphocytes % (A) 35 %; MCH 29.1 pg (25.0-35.0); MCHC 32.2 g/dL (31.0-37.0); MCV 90.3 fL (80.0-100.0); Mean Platelet Volume 5.4; Monocytes # (A) 0.5 k/uL (0-1.0); Monocytes % (A) 4 %; Neutrophils # (A) 5.7 k/uL (1.3-7.7); Neutrophils % (A) 55 %; Partial Thromboplastin Time 25.9 sec (22.0-30.0); Platelet Count 694 k/uL (150-450); Prothrombin Time 9.9 sec (9.0-12.0); RBC 3.73 m/uL (4.30-5.90); RDW 14.4 % (11.5-15.5); WBC 10.3 k/uL (3.8-10.6)
[2019-08-06 22:23] LABS: ALT 24 U/L (21-72); AST 23 U/L (17-59); African American GFR (CKD) >90 (>60 ml/min/1.73 sqM); Albumin 3.3 g/dL (3.5-5.0); Alkaline Phosphatase 94 U/L (38-126); Anion Gap 5 mmol/L; Blood Urea Nitrogen 14 mg/dL (9-20); Carbon Dioxide 25 mmol/L (22-30); Chloride 107 mmol/L (98-107); Creatine Kinase 271 U/L (55-170); Glucose 95 mg/dL (74-99); Potassium 4.3 mmol/L (3.5-5.1); Sodium 137 mmol/L (137-145); Total Bilirubin 0.1 mg/dL (0.2-1.3); Total Protein 5.9 g/dL (6.3-8.2)
--- NOTE | 2019-08-06 22:51 | CT ---
EXAMINATION TYPE: CT brain wo con for TPA DATE OF EXAM: 08/06/2019 COMPARISON: 12/04/2017 HISTORY: Right sided weakness CT DLP: 1101.8 mGycm Automated exposure control for dose reduction was used. FINDINGS: There is linear 3 x 1 cm area of hypodensity in the right internal capsule related to old infarct. Th ere is slight enlargement of the right lateral ventricle compared to the left. There is no midline sh ift. There is no sign of intracranial hemorrhage. The calvarium is intact. There is asymmetric atroph y of the right temporal lobe compared to the left. IMPRESSION: OLD RIGHT SIDE INTERNAL CAPSULE LACUNAR INFARCT. No acute intracranial abnormality. No change compare d to old exam.
--- NOTE | 2019-08-06 22:56 | CT ---
EXAMINATION TYPE: CT angio head neck DATE OF EXAM: 08/06/2019 HISTORY: Right sided weakness COMPARISON: None CT DLP: 334.3 mGycm. Automated Exposure Control for Dose Reduction was Utilized. TECHNIQUE: CTA scan of the neck is performed with IV Contrast, patient injected with 65 mL of Isovue 370, axial images are obtained, coronal and sagittal reformatted images are reviewed. Three-D recons tructed images are created on an independent workstation and reviewed. FINDINGS: There is normal branching pattern of the great vessels on the aortic arch. There is bilateral arteria l flow in the subclavian arteries. There is arterial flow in the common internal and external carotid arteries bilaterally. There is no significant plaque formation. The carotid artery bifurcations appe ar fairly normal. There is minimal plaque on the posterior wall of the distal right common carotid ar ilia. There is no evidence of stenosis. There is normal contrast opacification of the vertebral arter ies. There is arterial flow in the vertebrobasilar artery system. There is arterial flow in the anterior middle and posterior cerebral arteries. There is normal contrast opacification of the venous sinuses. There is no evidence of intracranial an eurysm or neovascularity. There is no mass effect. There is no evidence of hemodynamic stenosis. IMPRESSION: Essentially negative CT angiogram of the brain and neck. No evidence of hemodynamic stenosis.
--- NOTE | 2019-08-06 23:33 | XR ---
EXAMINATION TYPE: XR chest 2V DATE OF EXAM: 08/06/2019 COMPARISON: 07/31/2019 HISTORY: Altered mental status TECHNIQUE: Frontal and lateral views of the chest are obtained. FINDINGS: There is no heart failure nor confluent pneumonic infiltrate. Costophrenic angles are jayson r. There are chest leads. There is osteopenia. IMPRESSION: No active cardiopulmonary disease. No change. There is some elongated density over the a nterior left fourth rib . this is thought to be due to calcified costal cartilage.
[2019-08-06] MEDS ORDERED: ASPIRIN 325 MG TAB PO STA (23:42)
[2019-08-07] MEDS: SODIUM CHLORIDE 0.9% 1,000 ML IV SCH ×3 (00:24→19:54)
[2019-08-07 01:00] VITALS: BMI 17.4
[2019-08-07 01:02] LABS: Appearance,Urine Clear (Clear); Bilirubin,Urine Negative (Negative); Blood,Urine Negative (Negative); Color,Urine Light Yellow; Glucose,Urine (UA) Negative (Negative); Ketones,Urine Negative (Negative); Leukocyte Esterase,Urine Negative (Negative); Nitrite,Urine Negative (Negative); PH, Urine 5.5 (5.0-8.0); Protein,Urine Negative (Negative); Specific Gravity,Urine 1.026 (1.001-1.035); Urobilinogen,Urine <2.0 mg/dL (<2.0)
[2019-08-07 06:27] LABS: Cholesterol 169 mg/dL (<200); HDL Cholesterol 38 mg/dL (40-60); LDL Cholesterol,Calculated 113 mg/dL (0-99); Triglycerides 90 mg/dL (<150)
--- NOTE | 2019-08-07 12:01 | ECHOF ---
Referral Reason:TIA MEASUREMENTS -------- HEIGHT: 188.0 cm WEIGHT: 61.2 kg BP: 100/53 RVIDd: 3.4 cm (< 3.3) IVSd: 1.0 cm (0.6 - 1.1) LVIDd: 4.1 cm (3.9 - 5.3) LVPWd: 1.4 cm (0.6 - 1.1) IVSs: 1.1 cm LVIDs: 3.0 cm LVPWs: 1.8 cm LAESV Index (A-L): 25.40 ml/m Ao Diam: 2.9 cm (2.0 - 3.7) AV Cusp: 1.9 cm (1.5 - 2.6) LA Diam: 3.9 cm (2.7 - 3.8) TAPSE: 2.4 cm MV EXCURSION: 12.973 mm (> 18.000) MV EF SLOPE: 133 mm/s (70 - 150) EPSS: 0.6 cm MV E Raheel: 1.01 m/s MV DecT: 159 ms MV A Raheel: 0.52 m/s MV E/A Ratio: 1.95 RAP: 20.00 mmHg RVSP: 44.93 mmHg FINDINGS -------- Resting bradycardia (HR<60bpm). This was a technically good study. There is mild concentric left ventricular hypertrophy. Overall left ventricular systolic function i s low-normal with, an EF between 50 - 55 %. The diastolic filling pattern is normal for the age of the patient 8.89. The right ventricle is mildly enlarged. The right ventricular systolic function is mildly impaired. Normal LA size by volume 22+/-6 ml/m2. The right atrial size is normal. Interatrial and interventricular septum intact. The aortic valve is trileaflet and appears structurally normal. There is no evidence of aortic regu rgitation. There is no evidence of aortic stenosis. Mild mitral regurgitation is present. Mild tricuspid regurgitation present. There is mild to moderate pulmonary hypertension. The right ventricular systolic pressure, as measured by Doppler, is 44.93mmHg. There is no pulmonic regurgitation present. The aortic root size is normal. The inferior vena cava is dilated with poor inspiratory collapse which is consistent with estimated r ight atrial pressure of 20 mmHg. There is no pericardial effusion. CONCLUSIONS -------- 1. Resting bradycardia (HR<60bpm). 2. This was a technically good study. 3. There is mild concentric left ventricular hypertrophy. 4. Overall left ventricular systolic function is low-normal with, an EF between 50 - 55 %. 5. The diastolic filling pattern is normal for the age of the patient 8.89 6. The right ventricle is mildly enlarged. 7. The right ventricular systolic function is mildly impaired. 8. Normal LA size by volume 22+/-6 ml/m2. 9. The right atrial size is normal. 10. Interatrial and interventricular septum intact. 11. The aortic valve is trileaflet and appears structurally normal. 12. There is no evidence of aortic regurgitation. 13. There is no evidence of aortic stenosis. 14. Mild mitral regurgitation is present. 15. Mild tricuspid regurgitation present. 16. There is mild to moderate pulmonary hypertension. 17. The right ventricular systolic pressure, as measured by Doppler, is 44.93mmHg. 18. There is no pulmonic regurgitation present. 19. The aortic root size is normal. 20. The inferior vena cava is dilated with poor inspiratory collapse which is consistent with estimat ed right atrial pressure of 20 mmHg. 21. There is no pericardial effusion. PLAYGROUND OFFICIAL: Jacqueline Dunlap RDCS
--- NOTE | 2019-08-07 14:05 | P.CNNES ---
History of Present Illness Consult date: 08/07/19 Requesting physician: Zenon Bee Reason for Consult: TIA History of Present Illness: Patient is a 49-year-old male, with states that for the last 2 days he has been noticing some weakness of the right arm and leg. He was not able to hold, grab stuff, dropping things and stumbling on the right side. There was no facial droop, slurred speech headache. Patient denies any history of hypertension, diabetes. He had history of stroke, which affected right side of the body in 2012. He states that he was admitted to this hospital but then transferred to [place]. Patient does not take any antiplatelet medication at home. He has smoked 1-1/2 pack per day for 30 years, still smoking. Denies any history of head or neck trauma. Patient came to ER, had computed tomography scan of the head, which was negative for any acute process. Old right-sided internal capsular lacunar infarct. Patient had EKG which shows normal sinus rhythm. CTA of head and neck was negative for any large vessel occlusion. Patient had a 2-D echo performed today which revealed resting bradycardia. Mild concentric LVH. Normal left atrial size. Interatrial and interventricular septum intact. Aortic valve is normal. Chest x-ray shows no acute cardiopulmonary disease. The some enlarged density over the anterior left fourth rib. This will be assessed by primary physician. Patient's blood test shows normal WBC 10.3 hemoglobin 10.8 and platelet 694. PT/PTT normal. Chem-7 normal. Liver functions normal. Total cholesterol 169, LDL 113, HDL 38. UA negative. Troponin negative. Patient's hemoglobin A1c was 5.5 on 01/13/2018. Patient was started on aspirin 325 mg. He states all his symptoms have resolved. Review of Systems Completely unremarkable. Denies any headaches problem with the vision, numbness tingling soreness, chest pain or shortness of breath. 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 Past Anesthesia/Blood Transfusion Reactions: Unable to Obtain Additional Past Anesthesia/Blood Transfusion Reaction / Comment(s): Pt has never had general/spinal anesthesia Past Psychological History: Anxiety, Bipolar, Depression, Schizoaffective Disorder, Schizophrenia Additional Psychological History / Comment(s): . Smoking Status: Current every day smoker Past Alcohol Use History: None Reported Additional Past Alcohol Use History / Comment(s): Patient is homeless, states he smokes cigarettes and marijuana when he is able. Past Drug Use History: Marijuana Additional Drug Use History / Comment(s): Pt occasionally will smoke marijuana if it is available. - Past Family History Mother Family Medical History: CVA/TIA, Diabetes Mellitus, Myocardial Infarction ([place]) Father Additional Family Medical History / Comment(s): Emphesema Medications and Allergies Home Medications Medication Instructions Recorded Confirmed Type Azithromycin [Zithromax] 500 mg PO DAILY #7 tab 07/31/19 08/06/19 Rx Cephalexin [Keflex] 500 mg PO QID #30 cap 07/31/19 08/06/19 Rx Allergies Allergy/AdvReac Type Severity Reaction Status Date / Time horseradish Allergy Anaphylaxis Verified 08/06/19 21:03 shellfish derived [Shellfish] Allergy Anaphylaxis Verified 08/06/19 21:03 venom-wasp Allergy Anaphylaxis Verified 08/06/19 21:03 Physical Examination - Vital Signs Vital Signs: Vital Signs Temp Pulse Pulse Resp BP BP Pulse Ox 08/07/19 11:43 98.1 F 62 16 100/65 97 08/07/19 08:00 97.9 F 67 16 100/53 100 08/07/19 03:34 88 19 08/07/19 03:33 98.1 F 88 19 112/63 92 L 08/07/19 00:48 98.0 F 64 18 101/70 95 08/07/19 00:30 55 L 24 109/77 08/07/19 00:00 54 L 64 18 103/64 08/06/19 23:30 54 L 22 108/72 97 08/06/19 23:00 57 L 21 106/76 100 08/06/19 22:30 76 20 104/67 98 08/06/19 22:00 74 20 96 08/06/19 21:59 68 20 97 08/06/19 20:41 97.8 F 75 16 100/62 98 Intake and Output 10/14/19 10/15/19 10/15/19 22:59 06:59 14:59 Intake Total 1160 Output Total 350 Balance -350 1160 Intake: IV 800 Sodium Chloride 0.9% 1, 800 000 ml @ 100 mls/hr IV . Q10H [facility]AN[facility] Rx#:[id number] Oral 360 Output: Urine 350 Other: Voiding Method Toilet Toilet # Voids 1 Weight 62.959 kg 61.4 kg On examination patient is a middle aged male, in no distress. Patient is alert and awake fully oriented to time place and person. Speech and language functions are normal. On cranial nerve examination, pupils are round and reacting to light, visual driver are full. Face is symmetric and tongue protrudes to the midline. On muscle strength testing patient has right-sided slight drift but no pronation. The strength otherwise is normal in the arms and legs distally and proximally. No ataxia for [id number] testing. No loss of sensation on either side. No neglect with double simultaneous stimulation. Tone and bulk of muscles normal. Patient walked in the room and hallway and states is back to normal. Results - Laboratory Findings CBC and BMP: 08/06/19 22:00 08/06/19 22:00 Abnormal Lab Findings: Abnormal Labs 08/06/19 08/06/19 08/07/19 22:00 22:00 05:39 RBC 3.73 L Hgb 10.8 L Hct 33.7 L Plt Count 694 H Total Bilirubin 0.1 L Creatine Kinase 271 H Total Protein 5.9 L Albumin 3.3 L LDL Cholesterol, Calc 113 H HDL Cholesterol 38 L Assessment and Plan Assessment: * Probable TIA manifesting with transient right arm and leg weakness. Symptoms now has resolved. * History of CVA in 2013 with right-sided weakness, with no residual deficits. Apparently computed tomography scan of the head showed evidence of old ischemic lesion in the right basal ganglia (?ipsilateral to the side of the symptoms) * Hyperlipidemia * Tobacco user, 45 pack years. (1-1/2 pack per day for 30 years) Plan: * Start aspirin 325 mg daily. * Start Lipitor 20 mg daily for dyslipidemia. Target LDL <70. * Complete tobacco cessation. * Discussed with patient about further imaging like MRI. Patient's symptoms have resolved. MRI will not change overall management as above. * Neurologically clear for discharge.
[2019-08-07] MEDS ORDERED: ATORVASTATIN 20 MG TAB PO SCH ×2 (14:15→21:00)
[2019-08-07] MEDS ORDERED: ASPIRIN 325 MG TAB PO SCH (23:43)
[2019-08-08 08:24] VITALS: TEMP 98.1
[2019-08-08] MEDS ORDERED: ASPIRIN 325 MG TAB PO SCH (09:00)
[2019-08-08] MEDS: SODIUM CHLORIDE 0.9% 1,000 ML IV SCH (09:14)
--- NOTE | 2019-08-08 10:44 | P.PN ---
Subjective Progress Note Date: 08/08/19 Denies any numbness tingling, focal weakness. Feels back to baseline. Objective - Vital Signs Vital signs: Vital Signs Temp 98.1 F 08/08/19 07:50 Pulse 75 08/08/19 07:50 Resp 18 08/08/19 07:50 BP 109/64 08/08/19 07:50 Pulse Ox 98 08/08/19 07:50 Intake & Output 08/07/19 08/08/19 08/08/19 18:59 06:59 18:59 Intake Total 2240 236 Balance 2240 236 Weight 61.4 kg 60.2 kg Intake: IV 800 Sodium Chloride 0.9% 1, 800 000 ml @ 100 mls/hr IV . Q10H [facility]AN[facility] Rx#:[id number] Oral 1440 236 Other: Voiding Method Toilet Toilet # Voids 2 - Exam On examination muscle, patient's mental status, speech and language functions are normal. No aphasia or dysarthria. Cranial nerves are significant for mild flattening of the right nasolabial fold although difficult to assess because he has a very long mustaches and morales. Tongue protrudes the midline. On muscle strength testing there is no drift and the strength is normal in arms and legs. No ataxia. Sensations are equal. Tone and bulk of muscles normal. - Labs CBC & Chem 7: 08/06/19 22:00 08/06/19 22:00 Assessment and Plan Assessment: * Probable TIA manifesting with transient right arm and leg weakness. Symptoms now has resolved. * History of CVA in 2013 with right-sided weakness, with no residual deficits. Apparently computed tomography scan of the head showed evidence of old ischemic lesion in the right basal ganglia (?ipsilateral to the side of the symptoms) * Hyperlipidemia * Tobacco user, 45 pack years. (1-1/2 pack per day for 30 years) * Homeless status Plan: * Continue aspirin 325 mg daily. * Continue Lipitor 20 mg daily for dyslipidemia. Target LDL <70. * Complete tobacco cessation. * Neurologically clear for discharge.
[2019-08-08 11:59] VITALS: BP 113/68; PULSE 60; RESP 16
--- NOTE | 2019-08-08 12:17 | HP ---
HISTORY AND PHYSICAL CHIEF COMPLAINT: Weakness in the right arm. HISTORY OF PRESENT ILLNESS: This is another recent admission for this 49-year-old white male with COPD. He was just in the hospital with evaluation for pneumonia and COPD. Apparently, he suddenly noticed that he had weakness in the right arm and the right leg and had a little bit of difficulty walking and he came into the emergency room. REVIEW OF SYSTEMS: He has had no headaches, change in vision or the hearing, head trauma, seizures, blackouts, etc. Past medical history, family history and personal and social histories are all otherwise unremarkable or noncontributory. He is fairly noncompliant and does not come to the office for followup after he is admitted. 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 He was recently discharged from the hospital and it is not clear if he is taking any medications or not. He does smoke. Laboratory studies in the emergency room demonstrated hemoglobin of 10.8 and his CK was 271. PHYSICAL EXAMINATION: Blood pressure 100/62, pulse 98, respirations 34. He is afebrile. GENERAL: He appeared to be slender in no acute distress. Skin color is normal. Skin is warm, dry. Lymph nodes not enlarged. Head, ears, eyes, nose, mouth, and throat were normal. Neck veins not distended. Carotids normal. There are no bruits. Chest is clear, but breath sounds are diminished due to his emphysema. Cardiac exam demonstrates sinus rhythm with no murmurs or extra sounds. Abdomen is flat, soft, nontender. Extremities are normal. By the time exam, neurologically he seemed to be intact. He seemed to have normal cranial nerve function and strength on both sides. He is admitted to the hospital with diagnoses: 1. Possible left-sided transient ischemic attack. 2. Chronic obstructive pulmonary disease. PLAN: 1. Bed rest. 2. IV fluids. 3. Carotid duplex imaging. 4. . 5. Consult with Neurology. MMODL / IJN: [id number] /
--- NOTE | 2019-08-08 15:15 | PN ---
PROGRESS NOTE DATE OF SERVICE: 08/07/2019. CHIEF COMPLAINT: Possible TIA or CVA. HISTORY OF PRESENT ILLNESS: This gentleman is doing better now. When he came in, he had weakness in the right arm and somewhat less so in the right leg and had a little bit of difficulty walking. This seems to have cleared. At the present time he has no headache, diplopia, shortness of breath, etc. PHYSICAL EXAMINATION: The pupils are equal, round and reactive and gaze conjugate. Chest is clear and the cardiac exam is normal and the abdomen is soft, nontender. Neurologically, cranial nerves seem to be intact and the sensory motor exam seems to be back to normal as well. Toes are downgoing. IMPRESSION: Possible left-sided transient ischemic attack or cerebrovascular accident. PLAN: 1. Await further studies. 2. Neurology consult. 3. Carotid duplex imaging. MMBARTL / GURMEETN: [id number] /
--- NOTE | 2019-08-08 15:23 | DS ---
DISCHARGE SUMMARY CHIEF COMPLAINT: Right-sided weakness. HISTORY OF PRESENT ILLNESS AND PHYSICAL EXAM: Details of this man's history and physical can be found in the initial workup. LABORATORY STUDIES: While in the hospital, he had laboratory studies, details of which can be found in the laboratory section of his chart. COURSE IN HOSPITAL: After admission, he was placed on bedrest, started on intravenous fluids and frequent monitoring of his neurologic status and vital signs. He was seen by Neurology. His symptoms cleared and studies were essentially unremarkable. It was felt that he could go home, but he will be on aspirin and Plavix. He will be seen in the office in several days. FINAL DIAGNOSIS: Probable left-sided TIA. OPERATIONS: None. CONSULTATIONS: Neurology. He is improved. MMODL / IJN: [id number] /
[2019-08-09] MEDS ORDERED: CLOPIDOGREL 75 MG TAB PO SCH (09:00)
== END 2019-08-08 13:09 | disposition home or self-care (01) ==
LOC: EC 20:38 → 3SCARD 23:42
PROVIDERS: ADMIT Family Medicine; ATTEND Family Medicine
DX: R53.1 Weakness (principal); J44.9 Chronic obstructive pulmonary disease, unspecified; G43.909 Migraine, unspecified, not intractable, without status migrainosus; I67.1 Cerebral aneurysm, nonruptured; F17.210 Nicotine dependence, cigarettes, uncomplicated; R00.1 Bradycardia, unspecified; E78.5 Hyperlipidemia, unspecified; R26.2 Difficulty in walking, not elsewhere classified; F31.9 Bipolar disorder, unspecified; F25.9 Schizoaffective disorder, unspecified; F41.9 Anxiety disorder, unspecified; Z59.0 Homelessness; Z91.038 Other insect allergy status; Z91.013 Allergy to seafood; Z91.018 Allergy to other foods; Z91.19 Patient's noncompliance with other medical treatment and regimen; Z86.73 Personal history of transient ischemic attack (TIA), and cerebral infarction without residual deficits; Z82.3 Family history of stroke; Z82.49 Family history of ischemic heart disease and other diseases of the circulatory system; Z83.6 Family history of other diseases of the respiratory system; Z83.3 Family history of diabetes mellitus
CPT/HCPCS: 96360; 96361; 99285; 36415; 93005; 93306; 80061; 80053; 82550; 84484; 85025; 85610; 85730; 81003; 71046; 70496; 70450; 70498; G0378 ×2; Q9967

== ENCOUNTER 2019-08-14 17:52 | Emergency (ER) | payer OTHER ==
[2019-08-14 18:07] VITALS: BP 110/67; PULSE 74; RESP 18; TEMP 97.8
--- NOTE | 2019-08-14 18:46 | ED ---
Psych HPI - General Chief Complaint: Psychiatric Symptoms Stated Complaint: Mental health Time Seen by Provider: 08/14/19 18:11 Source: patient, RN notes reviewed Mode of arrival: ambulatory Limitations: no limitations - History of Present Illness Initial Comments: 49-year-old male presents emergency Department for psychiatric evaluation. Patient states he has severe anger issues at this time. Patient states that he was recently discharged from the hospital for chest pain and pneumonia. Patient states that he was living at [facility] states that they threw everything away on him including this time. Patient states he was also kicked out from his friend's house. Patient states is very anger and states that is concerned that he may harm somebody else. Patient denies any suicidal ideation denies any current drug or alcohol abuse. Patient has no physical complaints. - Related Data Home Medications Medication Instructions Recorded Confirmed Albuterol Inhaler [Ventolin Hfa 2 puff INHALATION RT-Q6H PRN 08/14/19 08/14/19 Inhaler] Divalproex ER [Depakote ER] 1,000 mg PO HS 08/14/19 08/14/19 QUEtiapine [SEROquel] 100 mg PO HS 08/14/19 08/14/19 hydrOXYzine PAMOATE 50 mg PO BID 08/14/19 08/14/19 Previous Rx's Medication Instructions Recorded Atorvastatin [Lipitor] 20 mg PO HS #10 tab 08/08/19 Clopidogrel [Plavix] 75 mg PO DAILY #10 tab 08/08/19 Allergies Allergy/AdvReac Type Severity Reaction Status Date / Time horseradish Allergy Anaphylaxis Verified 08/14/19 18:24 shellfish derived [Shellfish] Allergy Anaphylaxis Verified 08/14/19 18:24 venom-wasp Allergy Anaphylaxis Verified 08/14/19 18:24 Review of Systems ROS Statement: Those systems with pertinent positive or pertinent negative responses have been documented in the HPI. ROS Other: All systems not noted in ROS Statement are negative. 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 Past Anesthesia/Blood Transfusion Reactions: Unable to Obtain Additional Past Anesthesia/Blood Transfusion Reaction / Comment(s): Pt has never had general/spinal anesthesia Past Psychological History: Anxiety, Bipolar, Depression, Schizoaffective Dis order, Schizophrenia Smoking Status: Current every day smoker Past Alcohol Use History: None Reported Past Drug Use History: Marijuana - Past Family History Mother Family Medical History: CVA/TIA, Diabetes Mellitus, Myocardial Infarction ([place]) Father Additional Family Medical History / Comment(s): Emphesema General Exam Limitations: no limitations General appearance: alert, in no apparent distress Head exam: Present: atraumatic, normocephalic, normal inspection Eye exam: Present: normal appearance, PERRL, EOMI. Absent: scleral icterus, conjunctival injection, periorbital swelling ENT exam: Present: normal exam, normal oropharynx, mucous membranes moist Neck exam: Present: normal inspection, full ROM. Absent: tenderness, meningismus, lymphadenopathy Respiratory exam: Present: normal lung sounds bilaterally. Absent: respiratory distress, wheezes, rales, rhonchi, stridor Cardiovascular Exam: Present: regular rate, normal rhythm, normal heart sounds. Absent: systolic murmur, diastolic murmur, rubs, gallop, clicks GI/Abdominal exam: Present: soft, normal bowel sounds. Absent: distended, tenderness, guarding, rebound, rigid Neurological exam: Present: alert, oriented X3 Psychiatric exam: Present: depressed Skin exam: Present: warm, dry, intact, normal color. Absent: rash Course Vital Signs 08/14/19 18:04 Temperature 97.8 F Pulse Rate 74 Respiratory 18 Rate Blood Pressure 110/67 O2 Sat by Pulse 97 Oximetry Medical Decision Making - Medical Decision Making Patient evaluated by EPS case with psychiatrist recommends discharge. Patient currently homeless, provided information to shelters. Patient is not homicidal or suicidal. Disposition Clinical Impression: Depression, Adjustment reaction of adult life, Homelessness Disposition: HOME SELF-CARE Condition: Stable Instructions (If sedation given, give patient instructions): Depression (DC) Additional Instructions: Please return to the Emergency Department if symptoms worsen or any other concerns. Is patient prescribed a controlled substance at d/c from ED?: No Referrals: Flash Schofield MD [Primary Care Provider] - 1-2 days Time of Disposition: 19:54
== END 2019-08-14 20:05 | disposition home or self-care (01) ==
LOC: EC 17:52
DX: F32.9 Major depressive disorder, single episode, unspecified (principal); F43.20 Adjustment disorder, unspecified; J44.9 Chronic obstructive pulmonary disease, unspecified; F41.9 Anxiety disorder, unspecified; F20.9 Schizophrenia, unspecified; I25.2 Old myocardial infarction; F17.200 Nicotine dependence, unspecified, uncomplicated; Z79.899 Other long term (current) drug therapy; Z91.030 Bee allergy status; Z91.013 Allergy to seafood; Z91.018 Allergy to other foods; Z86.73 Personal history of transient ischemic attack (TIA), and cerebral infarction without residual deficits; Z59.0 Homelessness
CPT/HCPCS: 82075; 99284

== ENCOUNTER 2019-08-23 23:50 | Emergency (ER) | payer OTHER ==
[2019-08-23 23:57] VITALS: TEMP 97.8
[2019-08-24] MEDS ORDERED: IBUPROFEN 600 MG TAB PO STA (00:19)
[2019-08-24] MEDS ORDERED: ACETAMINOPHEN TAB 500 MG TAB PO STA (00:19)
--- NOTE | 2019-08-24 00:58 | ED ---
Headache HPI - General Chief Complaint: Headache Stated Complaint: Headache Time Seen by Provider: 08/23/19 23:59 Mode of arrival: ambulatory Limitations: no limitations - History of Present Illness Initial Comments: 49-year-old male patient presents to the emergency department today for evaluation of headache. Patient states headache started yesterday. Patient states he usually smokes marijuana to get his headaches to go up at this time it did not work. Patient denies taking any medication for his symptoms. States he has had headaches similar to this in the past. Denies any blurred or double vision. Denies any current numbness or tingling to his extremities. Denies any dizziness or weakness. He denies any recent head injury. Denies this being the worse headache of his life. Patient denies any recent rash, fever, chills, shortness breath, chest pain, abdominal pain, nausea, vomiting, diarrhea, constipation, back pain, hematuria, dysuria, urinary urgency, urinary frequency, or any other complaints. - Related Data Home Medications Medication Instructions Recorded Confirmed Albuterol Inhaler [Ventolin Hfa 2 puff INHALATION RT-Q6H PRN 08/14/19 08/23/19 Inhaler] Divalproex ER [Depakote ER] 1,000 mg PO HS 08/14/19 08/23/19 QUEtiapine [SEROquel] 100 mg PO HS 08/14/19 08/23/19 hydrOXYzine PAMOATE 50 mg PO BID 08/14/19 08/23/19 Previous Rx's Medication Instructions Recorded Atorvastatin [Lipitor] 20 mg PO HS #10 tab 08/08/19 Clopidogrel [Plavix] 75 mg PO DAILY #10 tab 08/08/19 Allergies Allergy/AdvReac Type Severity Reaction Status Date / Time horseradish Allergy Anaphylaxis Verified 08/14/19 18:24 shellfish derived [Shellfish] Allergy Anaphylaxis Verified 08/14/19 18:24 venom-wasp Allergy Anaphylaxis Verified 08/14/19 18:24 Review of Systems ROS Statement: Those systems with pertinent positive or pertinent negative responses have been documented in the HPI. ROS Other: All systems not noted in ROS Statement are negative. 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 Past Anesthesia/Blood Transfusion Reactions: Unable to Obtain Additional Past Anesthesia/Blood Transfusion Reaction / Comment(s): Pt has never had general/spinal anesthesia Past Psychological History: Anxiety, Bipolar, Depression, Schizoaffective Disorder, Schizophrenia Smoking Status: Current every day smoker Past Alcohol Use History: None Reported Past Drug Use History: Marijuana - Past Family History Mother Family Medical History: CVA/TIA, Diabetes Mellitus, Myocardial Infarction ([place]) Father Additional Family Medical History / Comment(s): Emphesema General Exam Limitations: no limitations General appearance: alert, in no apparent distress, other (Physical well- developed, well-nourished adult male patient in no acute distress. Vital signs upon presentation are temperature 97.8F, pulse 75, respirations 20, blood pressure 104/67, pulse ox 96% on room air.) Eye exam: Present: normal appearance, PERRL, EOMI. Absent: scleral icterus, conjunctival injection, periorbital swelling ENT exam: Present: normal exam, normal oropharynx, mucous membranes moist Respiratory exam: Present: normal lung sounds bilaterally. Absent: respiratory distress, wheezes, rales, rhonchi, stridor Cardiovascular Exam: Present: regular rate, normal rhythm, normal heart sounds. Absent: systolic murmur, diastolic murmur, rubs, gallop, clicks Neurological exam: Present: alert, oriented X3, CN II-XII intact, other (Strength in all 4 days or 5/5.) Psychiatric exam: Present: normal affect, normal mood Skin exam: Present: warm, dry, intact, normal color. Absent: rash Course Vital Signs 08/23/19 23:54 Temperature 97.8 F Pulse Rate 75 Respiratory 20 Rate Blood Pressure 104/67 O2 Sat by Pulse 96 Oximetry Medical Decision Making - Medical Decision Making 49-year-old male patient presented to the emergency department today for evaluation of headache. Physical examination is unremarkable. He is neurologically intact with no focal deficits. Patient states she's had similar type headaches in the past. Did not take any medication for symptoms prior to arrival. Requested food multiple times and is eating and drinking without difficulty. He was given ibuprofen and acetaminophen. To be discharged to follow-up with his primary care physician for recheck in 1-2 days. Return parameters discussed in detail. He verbalizes understanding and agrees with this plan. Disposition Clinical Impression: Headache Disposition: HOME SELF-CARE Condition: Good Instructions (If sedation given, give patient instructions): Acute Headache (ED) Additional Instructions: Increase fluids. Rest. Follow-up with her primary care physician for recheck in 1-2 days. Return to the emergency Department immediately for any new, worsening, or concerning symptoms. Is patient prescribed a controlled substance at d/c from ED?: No Referrals: Flash Schofield MD [Primary Care Provider] - 1-2 days Time of Disposition: 01:02
[2019-08-24 01:24] VITALS: BP 100/60; PULSE 70; RESP 19
== END 2019-08-24 01:24 | disposition home or self-care (01) ==
LOC: EC 23:50
DX: R51 Headache (principal); J44.9 Chronic obstructive pulmonary disease, unspecified; F41.9 Anxiety disorder, unspecified; F31.9 Bipolar disorder, unspecified; F25.9 Schizoaffective disorder, unspecified; I25.2 Old myocardial infarction; F17.200 Nicotine dependence, unspecified, uncomplicated; Z79.899 Other long term (current) drug therapy; Z91.030 Bee allergy status; Z91.013 Allergy to seafood; Z91.018 Allergy to other foods; Z86.73 Personal history of transient ischemic attack (TIA), and cerebral infarction without residual deficits
CPT/HCPCS: 99283

== ENCOUNTER 2019-08-25 03:48 | Emergency (ER) | payer OTHER ==
[2019-08-25 03:52] VITALS: BP 120/70; PULSE 78; RESP 18; TEMP 97.5
[2019-08-25] MEDS ORDERED: PENICILLIN VK 500MG STARTER 4 TAB BTL PO STA (04:27)
[2019-08-25] MEDS ORDERED: ACET/COD 300 MG/30 MG STARTER PACK 6 TAB BTL PO STA (04:27)
[2019-08-25] MEDS ORDERED: IBUPROFEN 600 MG STARTER PACK 4 TAB BTL PO STA (04:27)
--- NOTE | 2019-08-25 04:32 | ED ---
ENT HPI - General Chief complaint: Dental/Oral Stated complaint: Dental pain Time Seen by Provider: 08/25/19 04:05 Source: patient Mode of arrival: ambulatory Limitations: no limitations - History of Present Illness MD complaint: tooth pain -: days(s) Location: tooth # (12) Severity: moderate Quality: aching Consistency: constant Improves with: none Worsens with: none Context- Dental: history of dental caries Associated Symptoms: toothache - Related Data Home Medications Medication Instructions Recorded Confirmed Albuterol Inhaler [Ventolin Hfa 2 puff INHALATION RT-Q4H PRN 08/14/19 08/29/19 Inhaler] Divalproex ER [Depakote ER] 1,000 mg PO HS 08/14/19 08/29/19 QUEtiapine [SEROquel] 100 mg PO HS 08/14/19 08/29/19 hydrOXYzine PAMOATE 50 mg PO BID 08/14/19 08/29/19 Aspirin 325 mg PO DAILY 08/29/19 busPIRone HCl [Buspar] 5 mg PO DIRECTED 08/29/19 Previous Rx's Medication Instructions Recorded Atorvastatin [Lipitor] 20 mg PO HS #10 tab 08/08/19 Clopidogrel [Plavix] 75 mg PO DAILY #10 tab 08/08/19 Penicillin V Potassium [Pen Vee K] 500 mg PO QID #28 tablet 08/25/19 Allergies Allergy/AdvReac Type Severity Reaction Status Date / Time horseradish Allergy Anaphylaxis Verified 08/29/19 21:16 shellfish derived [Shellfish] Allergy Anaphylaxis Verified 08/29/19 21:16 venom-wasp Allergy Anaphylaxis Verified 08/29/19 21:16 Review of Systems ROS Statement: Those systems with pertinent positive or pertinent negative responses have been documented in the HPI. ROS Other: All systems not noted in ROS Statement are negative. Constitutional: Denies: fever, chills Eyes: Denies: eye pain, vision change ENT: Reports: dental pain. 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 Past Anesthesia/Blood Transfusion Reactions: Unable to Obtain Additional Past Anesthesia/Blood Transfusion Reaction / Comment(s): Pt has never had general/spinal anesthesia Past Psychological History: Anxiety, Bipolar, Depression, Schizoaffective Disorder, Schizophrenia Smoking Status: Current every day smoker Past Alcohol Use History: None Reported Past Drug Use History: Marijuana - Past Family History Mother Family Medical History: CVA/TIA, Diabetes Mellitus, Myocardial Infarction ([place]) Father Additional Family Medical History / Comment(s): Emphesema General Exam Limitations: no limitations General appearance: alert, in no apparent distress Eye exam: Present: normal appearance, PERRL, EOMI. Absent: scleral icterus, conjunctival injection, periorbital swelling, periorbital tenderness ENT exam: Present: other (Patient has extensive caries to tooth #12. There is mild tenderness there. There is no swelling. There is no evidence of abscess formation.) Neck exam: Present: normal inspection, full ROM, other (No neck or submandibular mandibular fullness.). Absent: tenderness, lymphadenopathy Course Vital Signs 08/25/19 03:49 Temperature 97.5 F L Pulse Rate 78 Respiratory 18 Rate Blood Pressure 120/70 O2 Sat by Pulse 99 Oximetry Disposition Clinical Impression: Dental caries Disposition: HOME SELF-CARE Condition: Good Instructions (If sedation given, give patient instructions): Toothache (ED) Prescriptions: Penicillin V Potassium [Pen Vee K] 500 mg PO QID #28 tablet Is patient prescribed a controlled substance at d/c from ED?: No Referrals: Flash Schofield MD [Primary Care Provider] - 1-2 days
== END 2019-08-25 04:43 | disposition home or self-care (01) ==
LOC: EC 03:48
DX: K02.9 Dental caries, unspecified (principal); J44.9 Chronic obstructive pulmonary disease, unspecified; F31.9 Bipolar disorder, unspecified; F20.9 Schizophrenia, unspecified; F41.9 Anxiety disorder, unspecified; F17.200 Nicotine dependence, unspecified, uncomplicated; Z91.013 Allergy to seafood; Z91.018 Allergy to other foods; Z91.038 Other insect allergy status; Z79.82 Long term (current) use of aspirin; Z79.899 Other long term (current) drug therapy; Z86.73 Personal history of transient ischemic attack (TIA), and cerebral infarction without residual deficits; Z86.69 Personal history of other diseases of the nervous system and sense organs
CPT/HCPCS: 99282

== ENCOUNTER 2019-08-27 22:44 | Emergency (ER) | payer OTHER ==
[2019-08-27 22:54] VITALS: BP 115/76; PULSE 96; RESP 18; TEMP 98.3
[2019-08-27] MEDS ORDERED: KETOROLAC 30 MG/ML 1 ML VIAL IM STA (22:59)
[2019-08-27] MEDS ORDERED: LIDOCAINE VISCOUS 2% 15 ML CUP MUCOUS MEM ONE (22:59)
--- NOTE | 2019-08-27 23:22 | ED ---
ENT HPI - General Chief complaint: Dental/Oral Stated complaint: Abcess Tooth Time Seen by Provider: 08/27/19 22:56 Source: patient Mode of arrival: ambulatory Limitations: no limitations - History of Present Illness Initial comments: 49-year-old male patient presents to the emergency department today for evaluation of left lower dental pain. Patient states he was seen here 2 days ago and diagnosed with a dental abscess. States he has been taking antibiotics. States he is taking Tylenol for pain control which is not helping much. Patient states he developed some swelling to his face today. Denies fever or chills. Denies nausea or vomiting Denies any trismus or difficulty swallowing. Patient states he has not yet made an appointment with the dentist. Patient denies any recent rash, shortness breath, chest pain, abdominal pain, diarrhea, constipation, back pain, numbness, tingling, dizziness, weakness, hematuria, dysuria, urinary urgency, urinary frequency, headache, visual changes, or any other complaints. - Related Data Home Medications Medication Instructions Recorded Confirmed Albuterol Inhaler [Ventolin Hfa 2 puff INHALATION RT-Q6H PRN 08/14/19 08/23/19 Inhaler] Divalproex ER [Depakote ER] 1,000 mg PO HS 08/14/19 08/23/19 QUEtiapine [SEROquel] 100 mg PO HS 08/14/19 08/23/19 hydrOXYzine PAMOATE 50 mg PO BID 08/14/19 08/23/19 Previous Rx's Medication Instructions Recorded Atorvastatin [Lipitor] 20 mg PO HS #10 tab 08/08/19 Clopidogrel [Plavix] 75 mg PO DAILY #10 tab 08/08/19 Penicillin V Potassium [Pen Vee K] 500 mg PO QID #28 tablet 08/25/19 Allergies Allergy/AdvReac Type Severity Reaction Status Date / Time horseradish Allergy Anaphylaxis Verified 08/27/19 22:54 shellfish derived [Shellfish] Allergy Anaphylaxis Verified 08/27/19 22:54 venom-wasp Allergy Anaphylaxis Verified 08/27/19 22:54 Review of Systems ROS Statement: Those systems with pertinent positive or pertinent negative responses have been documented in the HPI. ROS Other: All systems not noted in ROS Statement are negative. 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 Past Anesthesia/Blood Transfusion Reactions: Unable to Obtain Additional Past Anesthesia/Blood Transfusion Reaction / Comment(s): Pt has never had general/spinal anesthesia Past Psychological History: Anxiety, Bipolar, Depression, Schizoaffective Disorder, Schizophrenia Smoking Status: Current every day smoker Past Alcohol Use History: None Reported Past Drug Use History: Marijuana - Past Family History Mother Family Medical History: CVA/TIA, Diabetes Mellitus, Myocardial Infarction ([place]) Father Additional Family Medical History / Comment(s): Emphesema General Exam Limitations: no limitations General appearance: alert, in no apparent distress, other (This is a well- developed, well-nourished adult male patient in no acute distress. Vital signs upon presentation are temperature 98.3F, pulse 96, respirations 18, blood pressure 115/76, pulse ox 96% on room air.) Eye exam: Present: normal appearance, PERRL, EOMI. Absent: scleral icterus, conjunctival injection, periorbital swelling ENT exam: Present: normal oropharynx, mucous membranes moist, other (Patient has abscess noted to the left lower dentition over the bucchal surface) Neck exam: Absent: lymphadenopathy Respiratory exam: Present: normal lung sounds bilaterally. Absent: respiratory distress, wheezes, rales, rhonchi, stridor Cardiovascular Exam: Present: regular rate, normal rhythm, normal heart sounds. Absent: systolic murmur, diastolic murmur, rubs, gallop, clicks GI/Abdominal exam: Present: soft, normal bowel sounds. Absent: distended, tenderness, guarding, rebound, rigid Neurological exam: Present: alert, oriented X3, CN II-XII intact Psychiatric exam: Present: normal affect, normal mood Skin exam: Present: warm, dry, intact, normal color. Absent: rash Course Vital Signs 08/27/19 22:53 Temperature 98.3 F Pulse Rate 96 Respiratory 18 Rate Blood Pressure 115/76 O2 Sat by Pulse 96 Oximetry Medical Decision Making - Medical Decision Making 49-year-old male patient presented to the emergency department today for evaluation of dental abscess. Physical examination did reveal an abscess to the left lower dentition over the bucchal surface. This was drained utilizing 18g needle. Patient tolerated this well. He is urged to continue the antibiotics. Is instructed to follow-up with dentistry as soon as possible. Return parameters were discussed in detail. He verbalizes understanding and agrees with this plan Disposition Clinical Impression: Dental abscess Disposition: HOME SELF-CARE Condition: Good Instructions (If sedation given, give patient instructions): Dental Abscess (ED) Additional Instructions: Continue antibiotics. Follow up with dentistry for further evaluation as soon as possible. Return to the emergency department for any new, worsening, or concerning symptoms. Please follow up with the [facility] dental clinic. [facility] [place] [address]. Phone number for new patients or [phone] for existing patients. [facility]. Must pay for x-rays then services are free. Call for an appoitnment. Is patient prescribed a controlled substance at d/c from ED?: No Referrals: Flash Schofield MD [Primary Care Provider] - 1-2 days Time of Disposition: 23:21
== END 2019-08-27 23:25 | disposition home or self-care (01) ==
LOC: EC 22:44
DX: K04.7 Periapical abscess without sinus (principal); J44.9 Chronic obstructive pulmonary disease, unspecified; F31.9 Bipolar disorder, unspecified; F41.9 Anxiety disorder, unspecified; F20.9 Schizophrenia, unspecified; F17.200 Nicotine dependence, unspecified, uncomplicated; Z91.013 Allergy to seafood; Z91.018 Allergy to other foods; Z91.038 Other insect allergy status; Z79.899 Other long term (current) drug therapy; Z86.69 Personal history of other diseases of the nervous system and sense organs
CPT/HCPCS: 99283; 41800; 96372; J1885

== ENCOUNTER 2019-08-29 20:48 | Emergency (ER) | payer OTHER ==
--- NOTE | 2019-08-30 00:27 | ED ---
General Adult HPI - General Source: patient, RN notes reviewed Mode of arrival: ambulatory Limitations: no limitations <Jin Posey P - Last Filed: 08/30/19 00:26> <Elyssa Chavez P - Last Filed: 08/30/19 03:48> - General Chief complaint: Psychiatric Symptoms Stated complaint: suicidal Time Seen by Provider: 08/29/19 21:18 - History of Present Illness Initial comments: 49-year-old male with a past medical history of asthma, COPD, CVA, anxiety, bipolar disorder, depression, schizophrenia presents for chief suicidal thoughts. Patient states these thoughts started today and worsened just prior to arrival. Patient states his plan was to go to the top of a building and jump off. Patient states the holidays are making his depression worse. Denies any other aggravating factors. Denies any thoughts of harming anyone else.Patient has no other complaints at this time including shortness of breath, chest pain, abdominal pain, nausea or vomiting, headache, or visual changes. (Jin Posey) - Related Data Home Medications Medication Instructions Recorded Confirmed Albuterol Inhaler [Ventolin Hfa 2 puff INHALATION RT-Q4H PRN 08/14/19 08/29/19 Inhaler] Divalproex ER [Depakote ER] 1,000 mg PO HS 08/14/19 08/29/19 QUEtiapine [SEROquel] 100 mg PO HS 08/14/19 08/29/19 hydrOXYzine PAMOATE 50 mg PO BID 08/14/19 08/29/19 Aspirin 325 mg PO DAILY 08/29/19 busPIRone HCl [Buspar] 5 mg PO DIRECTED 08/29/19 Previous Rx's Medication Instructions Recorded Atorvastatin [Lipitor] 20 mg PO HS #10 tab 08/08/19 Clopidogrel [Plavix] 75 mg PO DAILY #10 tab 08/08/19 Penicillin V Potassium [Pen Vee K] 500 mg PO QID #28 tablet 08/25/19 Allergies Allergy/AdvReac Type Severity Reaction Status Date / Time horseradish Allergy Anaphylaxis Verified 08/29/19 21:16 shellfish derived [Shellfish] Allergy Anaphylaxis Verified 08/29/19 21:16 venom-wasp Allergy Anaphylaxis Verified 08/29/19 21:16 Review of Systems ROS Other: All systems not noted in ROS Statement are negative. <Jin Posey P - Last Filed: 08/30/19 00:26> ROS Other: All systems not noted in ROS Statement are negative. <Elyssa Chavez P - Last Filed: 08/30/19 03:48> ROS Statement: Those systems with pertinent positive or pertinent negative responses have been documented in the HPI. 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 Past Anesthesia/Blood Transfusion Reactions: Unable to Obtain Additional Past Anesthesia/Blood Transfusion Reaction / Comment(s): Pt has never had general/spinal anesthesia Past Psychological History: Anxiety, Bipolar, Depression, Schizoaffective Disorder, Schizophrenia Smoking Status: Current every day smoker Past Alcohol Use History: None Reported Past Drug Use History: Marijuana - Past Family History Mother Family Medical History: CVA/TIA, Diabetes Mellitus, Myocardial Infarction ([place]) Father Additional Family Medical History / Comment(s): Emphesema <Jin Posey P - Last Filed: 08/30/19 00:26> General Exam Limitations: no limitations General appearance: alert, in no apparent distress Head exam: Present: atraumatic, normocephalic, normal inspection Eye exam: Present: normal appearance, PERRL, EOMI. Absent: scleral icterus, conjunctival injection, periorbital swelling ENT exam: Present: normal exam, mucous membranes moist Neck exam: Present: normal inspection, full ROM. Absent: tenderness, meningismus, lymphadenopathy Respiratory exam: Present: normal lung sounds bilaterally. Absent: respiratory distress, wheezes, rales, rhonchi, stridor Cardiovascular Exam: Present: regular rate, normal rhythm, normal heart sounds. Absent: systolic murmur, diastolic murmur, rubs, gallop, clicks GI/Abdominal exam: Present: soft, normal bowel sounds. Absent: distended, tenderness, guarding, rebound, rigid Neurological exam: Present: alert Psychiatric exam: Present: suicidal ideation <Jin Posey - Last Filed: 08/30/19 00:26> Course Vital Signs 08/29/19 20:50 Temperature 97.4 F L Pulse Rate 91 Respiratory 16 Rate Blood Pressure 129/77 O2 Sat by Pulse 96 Oximetry Medical Decision Making <Elyssa Chavez - Last Filed: 08/30/19 03:48> - Medical Decision Making was evaluated by emergency psychiatric services. Patient is very well- known to psychiatric services, patient is well establish with mobile crisis unit who [place]. At this time was determined patient is stable for discharge from the emergency department. (Elyssa Chavez) Disposition <Jin Posey - Last Filed: 08/30/19 00:26> Is patient prescribed a controlled substance at d/c from ED?: No <Elyssa Chavez - Last Filed: 08/30/19 03:48> Clinical Impression: Personality disorder Disposition: HOME SELF-CARE Condition: Stable Instructions (If sedation given, give patient instructions): Seasonal Affective Disorder (ED) Referrals: Flash Schofield MD [Primary Care Provider] - 1-2 days
[2019-08-30 04:10] VITALS: BP 126/70; PULSE 72; RESP 18; TEMP 97.9
== END 2019-08-30 04:10 | disposition home or self-care (01) ==
LOC: EC 20:48
DX: F60.9 Personality disorder, unspecified (principal); R45.851 Suicidal ideations; J44.9 Chronic obstructive pulmonary disease, unspecified; G40.909 Epilepsy, unspecified, not intractable, without status epilepticus; G43.909 Migraine, unspecified, not intractable, without status migrainosus; F31.9 Bipolar disorder, unspecified; F20.9 Schizophrenia, unspecified; F41.9 Anxiety disorder, unspecified; I25.2 Old myocardial infarction; F17.200 Nicotine dependence, unspecified, uncomplicated; Z79.02 Long term (current) use of antithrombotics/antiplatelets; Z79.82 Long term (current) use of aspirin; Z79.899 Other long term (current) drug therapy; Z91.013 Allergy to seafood; Z91.030 Bee allergy status; Z91.018 Allergy to other foods; Z86.73 Personal history of transient ischemic attack (TIA), and cerebral infarction without residual deficits; Z95.5 Presence of coronary angioplasty implant and graft
CPT/HCPCS: 82075; 99285

== ENCOUNTER 2019-09-20 01:49 | Emergency (ER) | payer OTHER ==
[2019-09-20 01:56] VITALS: RESP 18
--- NOTE | 2019-09-20 02:28 | XR ---
EXAMINATION TYPE: XR chest 2V DATE OF EXAM: 09/20/2019 COMPARISON: 08/06/2019 HISTORY: Chest pain TECHNIQUE: Frontal and lateral views of the chest are obtained. FINDINGS: Heart is normal. Lungs are clear of infiltrate. There is no pleural effusion. There are no hilar masses. Bony thorax is intact. There is slight thoracic dextroscoliosis. IMPRESSION: No active cardiopulmonary disease. Normal heart. No change.
--- NOTE | 2019-09-20 03:12 | ED ---
Chest Pain HPI - General Chief Complaint: Chest Pain Stated Complaint: Chest Pain Time Seen by Provider: 09/20/19 01:59 Source: patient Mode of arrival: ambulatory Limitations: no limitations - History of Present Illness Initial Comments: she is 49-year-old man presenting to be evaluated for substernal chest pain. He states that it seemed to be related to the cold air he was breathing. Complaint: chest pain -: hour(s) Onset: during rest Pain Location: substernal Pain Radiation: none Severity: moderate Quality: aching Consistency: constant Improves With: nothing Worsens With: inspiration Treatments Prior to Arrival: none - Related Data Home Medications Medication Instructions Recorded Confirmed Albuterol Inhaler [Ventolin Hfa 2 puff INHALATION RT-Q4H PRN 08/14/19 08/29/19 Inhaler] Previous Rx's Medication Instructions Recorded Mirtazapine [Remeron] 15 mg PO HS 28 Days tab 09/27/19 Nicotine 14Mg/24Hr Patch [Habitrol] 1 patch TRANSDERM DAILY 14 Days 09/27/19 patch Sertraline [Zoloft] 100 mg PO DAILY 28 Days tab 09/27/19 Allergies Allergy/AdvReac Type Severity Reaction Status Date / Time horseradish Allergy Anaphylaxis Verified 09/29/19 00:34 shellfish derived [Shellfish] Allergy Anaphylaxis Verified 09/29/19 00:34 venom-wasp Allergy Anaphylaxis Verified 09/29/19 00:34 Review of Systems ROS Statement: Those systems with pertinent positive or pertinent negative responses have been documented in the HPI. ROS Other: All systems not noted in ROS Statement are negative. Constitutional: Denies: fever, chills Respiratory: Denies: cough, dyspnea, wheezes, hemoptysis Cardiovascular: Reports: as per HPI, chest pain. 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 Past Anesthesia/Blood Transfusion Reactions: Unable to Obtain Additional Past Anesthesia/Blood Transfusion Reaction / Comment(s): Pt has never had general/spinal anesthesia Past Psychological History: Anxiety, Bipolar, Depression, Schizoaffective Disorder, Schizophrenia Smoking Status: Current every day smoker Past Alcohol Use History: None Reported Past Drug Use History: Marijuana - Past Family History Mother Family Medical History: CVA/TIA, Diabetes Mellitus, Myocardial Infarction ([place]) Father Additional Family Medical History / Comment(s): Emphesema General Exam Limitations: no limitations General appearance: alert, in no apparent distress Head exam: Present: atraumatic, normocephalic Eye exam: Present: normal appearance. Absent: scleral icterus, conjunctival injection ENT exam: Present: normal oropharynx Neck exam: Present: normal inspection. Absent: full ROM Respiratory exam: Present: normal lung sounds bilaterally. Absent: respiratory distress, wheezes, rales, rhonchi, stridor, chest wall tenderness Cardiovascular Exam: Present: regular rate, normal rhythm, normal heart sounds. Absent: systolic murmur, diastolic murmur, rubs, gallop GI/Abdominal exam: Present: soft. Absent: distended, tenderness, guarding, rebound, mass Extremities exam: Present: normal inspection, normal capillary refill. Absent: pedal edema, calf tenderness Back exam: Present: normal inspection. Absent: CVA tenderness (R), CVA tenderness (L) Neurological exam: Present: alert Skin exam: Present: warm, dry, intact, normal color. Absent: rash Course Vital Signs 09/20/19 09/20/19 09/20/19 01:53 02:00 02:40 Temperature 98.7 F Pulse Rate 66 Respiratory 18 18 Rate Blood Pressure 107/79 107/79 108/74 O2 Sat by Pulse 96 92 L 96 Oximetry 09/20/19 09/20/19 09/20/19 03:10 03:40 04:10 Temperature 97.8 F Pulse Rate 58 L Respiratory 18 Rate Blood Pressure 111/73 116/76 98/68 O2 Sat by Pulse 95 97 97 Oximetry Disposition Clinical Impression: Chest pain Disposition: HOME SELF-CARE Condition: Good Instructions (If sedation given, give patient instructions): Chest Pain (ED) Is patient prescribed a controlled substance at d/c from ED?: No Referrals: Flash Schofield MD [Primary Care Provider] - 1-2 days
[2019-09-20 04:15] VITALS: BP 98/68; PULSE 58; TEMP 97.8
== END 2019-09-20 04:15 | disposition home or self-care (01) ==
LOC: EC 01:49
DX: R07.89 Other chest pain (principal); J44.9 Chronic obstructive pulmonary disease, unspecified; F17.200 Nicotine dependence, unspecified, uncomplicated; Z91.013 Allergy to seafood; Z91.018 Allergy to other foods; Z91.038 Other insect allergy status; Z79.899 Other long term (current) drug therapy; Z95.818 Presence of other cardiac implants and grafts; Z82.49 Family history of ischemic heart disease and other diseases of the circulatory system
CPT/HCPCS: 71046; 93005; 99285

== ENCOUNTER 2019-09-24 03:10 | Inpatient (IN) | payer MEDICAID, OTHER ==
--- NOTE | 2019-09-24 03:48 | ED ---
Psych HPI - General Chief Complaint: Psychiatric Symptoms Stated Complaint: Mental Health Time Seen by Provider: 09/24/19 03:20 Source: patient, RN notes reviewed, old records reviewed Mode of arrival: ambulatory - History of Present Illness Initial Comments: This patient's a 49-year-old male, well-known to emergency department. He presents today for suicidal thoughts. Plans to walk out in front of a car. Patient reports that he is currently homeless this time does not have a group home he stays in the evening. He states he just does not like the shelters rules. Patient states that he has had a chronic history of depression. Patient states that he has auditory or visual hallucinations. He denies any physical complaints at this time. - Related Data Home Medications Medication Instructions Recorded Confirmed Albuterol Inhaler [Ventolin Hfa 2 puff INHALATION RT-Q4H PRN 08/14/19 08/29/19 Inhaler] Divalproex ER [Depakote ER] 1,000 mg PO HS 08/14/19 08/29/19 QUEtiapine [SEROquel] 100 mg PO HS 08/14/19 08/29/19 hydrOXYzine PAMOATE 50 mg PO BID 08/14/19 08/29/19 Aspirin 325 mg PO DAILY 08/29/19 busPIRone HCl [Buspar] 5 mg PO DIRECTED 08/29/19 Previous Rx's Medication Instructions Recorded Atorvastatin [Lipitor] 20 mg PO HS #10 tab 08/08/19 Clopidogrel [Plavix] 75 mg PO DAILY #10 tab 08/08/19 Penicillin V Potassium [Pen Vee K] 500 mg PO QID #28 tablet 08/25/19 Allergies Allergy/AdvReac Type Severity Reaction Status Date / Time horseradish Allergy Anaphylaxis Verified 09/24/19 05:57 shellfish derived [Shellfish] Allergy Anaphylaxis Verified 09/24/19 05:57 venom-wasp Allergy Anaphylaxis Verified 09/24/19 05:57 Review of Systems ROS Statement: Those systems with pertinent positive or pertinent negative responses have been documented in the HPI. ROS Other: All systems not noted in ROS Statement are negative. 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 Past Anesthesia/Blood Transfusion Reactions: Unable to Obtain Additional Past Anesthesia/Blood Transfusion Reaction / Comment(s): Pt has never had general/spinal anesthesia Past Psychological History: Anxiety, Bipolar, Depression, Schizoaffective Disorder, Schizophrenia Smoking Status: Current every day smoker Past Alcohol Use History: None Reported Past Drug Use History: Marijuana - Past Family History Mother Family Medical History: CVA/TIA, Diabetes Mellitus, Myocardial Infarction ([place]) Father Additional Family Medical History / Comment(s): Emphesema General Exam - General Exam Comments Initial Comments: 49-year-old male. Alert and oriented. Resting comfortably in bed. Appears in no distress. Limitations: no limitations General appearance: alert, in no apparent distress Head exam: Present: atraumatic, normocephalic, normal inspection Eye exam: Present: normal appearance, PERRL, EOMI. Absent: scleral icterus, conjunctival injection, periorbital swelling ENT exam: Present: normal exam, mucous membranes moist Neck exam: Present: normal inspection. Absent: tenderness, meningismus, lymphadenopathy Respiratory exam: Present: normal lung sounds bilaterally. Absent: respiratory distress, wheezes, rales, rhonchi, stridor Cardiovascular Exam: Present: regular rate, normal rhythm, normal heart sounds. Absent: systolic murmur, diastolic murmur, rubs, gallop, clicks GI/Abdominal exam: Present: soft, normal bowel sounds. Absent: distended, tenderness, guarding, rebound, rigid Back exam: Present: normal inspection Neurological exam: Present: alert, oriented X3, CN II-XII intact Psychiatric exam: Present: depressed (Patient reports vague suicidal thoughts, plans to walk on front of moving traffic. ). Absent: normal affect, normal mood Skin exam: Present: warm, dry, intact, normal color. Absent: rash Course Vital Signs 09/24/19 03:21 Temperature 97.1 F L Pulse Rate 82 Respiratory 18 Rate Blood Pressure 125/82 O2 Sat by Pulse 97 Oximetry - Reevaluation(s) Reevaluation #1: 09/24/19 03:48 Patient requesting sandwich and drink. Reevaluation #2: 12/02/19 03:49 is medically clear at this time, evaluated by EPS. Patient's case transferred to Dr. Mijares at 4 AM. Medical Decision Making - Medical Decision Making 49-year-old male, presents to the emergency department today for concern for suicidal ideation and depression. Currently homeless, and reports he would walk in front of cars. Patient denies physical complaints at this time. Discussed patient to be evaluated by EPS. - Lab Data Result diagrams: 09/24/19 07:27 09/24/19 07:27 Lab Results 09/24/19 Range/Units 03:37 Urine Opiates Screen Not Detected (NotDetected) Ur Oxycodone Screen Not Detected (NotDetected) Urine Methadone Screen Not Detected (NotDetected) Ur Propoxyphene Screen Not Detected (NotDetected) Ur Barbiturates Screen Not Detected (NotDetected) U Tricyclic Antidepress Not Detected (NotDetected) Ur Phencyclidine Scrn Not Detected (NotDetected) Ur Amphetamines Screen Not Detected (NotDetected) U Methamphetamines Scrn Not Detected (NotDetected) U Benzodiazepines Scrn Not Detected (NotDetected) Urine Cocaine Screen Not Detected (NotDetected) U Marijuana (THC) Screen Detected H (NotDetected) Disposition Clinical Impression: Depression, Suicidal ideation Disposition: ADMITTED IP TO THIS [facility] Condition: Stable Is patient prescribed a controlled substance at d/c from ED?: No Time of Disposition: 15:51
[2019-09-24 04:00] LABS: Amphetamine Screen,Urine Not Detected (NotDetected); Barbiturate Screen,Urine Not Detected (NotDetected); Benzodiazepines Screen,Urine Not Detected (NotDetected); Cocaine Screen,Urine Not Detected (NotDetected); Methadone Screen, Urine Not Detected (NotDetected); Opiate Screen,Urine Not Detected (NotDetected); Oxycodone Screen, Urine Not Detected (NotDetected); Phencyclidine Screen,Urine Not Detected (NotDetected); Tricyclic Antidepressant,Urine Not Detected (NotDetected); Urn Cannabinoid Scrn Detected (NotDetected)
[2019-09-24] MEDS ORDERED: LORazepam 1 MG TAB PO PRN (05:09)
[2019-09-24] MEDS ORDERED: MAG HYDROX/AL HYDROX/SIMETH 30 ML CUP PO PRN (05:09)
[2019-09-24] MEDS ORDERED: MAGNESIUM HYDROXIDE 2,400 MG/10 ML CUP PO PRN (05:09)
[2019-09-24] MEDS ORDERED: ACETAMINOPHEN TAB 325 MG TAB PO PRN (05:09)
[2019-09-24 05:23] VITALS: RESP 16
[2019-09-24] MEDS ORDERED: OLANZapine ODT 5 MG TAB PO PRN (06:00)
[2019-09-24 07:59] LABS: Basophils # (A) 0.1 k/uL (0-0.2); Basophils % (A) 1 %; Eosinophils # (A) 0.5 k/uL (0-0.7); Eosinophils % (A) 5 %; HCT 42.7 % (39.0-53.0); HGB 13.5 gm/dL (13.0-17.5); Lymphocytes # (A) 2.7 k/uL (1.0-4.8); Lymphocytes % (A) 26 %; MCHC 31.6 g/dL (31.0-37.0); MCV 91.6 fL (80.0-100.0); Mean Platelet Volume 6.4; Monocytes # (A) 0.5 k/uL (0-1.0); Monocytes % (A) 5 %; Neutrophils # (A) 6.4 k/uL (1.3-7.7); Neutrophils % (A) 62 %; Platelet Count 332 k/uL (150-450); RBC 4.67 m/uL (4.30-5.90); RDW 14.1 % (11.5-15.5); WBC 10.4 k/uL (3.8-10.6)
[2019-09-24 08:17] LABS: ALT 20 U/L (21-72); AST 20 U/L (17-59); African American GFR (CKD) >90 (>60 ml/min/1.73 sqM); Albumin 3.9 g/dL (3.5-5.0); Alkaline Phosphatase 99 U/L (38-126); Anion Gap 7 mmol/L; Bilirubin, Delta 0.2 mg/dL (0.0-0.2); Bilirubin,Unconjugated 0.1 mg/dL (0.0-1.1); Blood Urea Nitrogen 13 mg/dL (9-20); Calcium 9.3 mg/dL (8.4-10.2); Carbon Dioxide 29 mmol/L (22-30); Chloride 105 mmol/L (98-107); Cholesterol 200 mg/dL (<200); Glucose 95 mg/dL (74-99); HDL Cholesterol 50 mg/dL (40-60); LDL Cholesterol,Calculated 123 mg/dL (0-99); Non-African American GFR(CKD) >90 (>60 ml/min/1.73 sqM); Potassium 4.6 mmol/L (3.5-5.1); Sodium 141 mmol/L (137-145); Total Bilirubin 0.3 mg/dL (0.2-1.3); Total Protein 6.6 g/dL (6.3-8.2); Triglycerides 136 mg/dL (<150)
[2019-09-24] MEDS: NICOTINE 14MG/24HR PATCH TRANSDERM SCH (08:58)
[2019-09-24 10:52] VITALS: BMI 18.1
[2019-09-24] MEDS ORDERED: ZIPRASIDONE 20 MG VIAL IM PRN (13:43)
[2019-09-24] MEDS ORDERED: busPIRone HCl 5 MG TAB PO PRN (13:44)
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
[2019-09-24] MEDS: SERTRALINE 50 MG TAB PO SCH (14:13)
[2019-09-24 18:10] LABS: Hemoglobin A1C 5.7 % (4.0-6.0)
[2019-09-24] MEDS: MIRTAZAPINE 15 MG TAB PO SCH (21:28)
--- NOTE | 2019-09-24 23:02 | CONS ---
CONSULTATION CHIEF COMPLAINT: Major depression with suicidal thoughts. HISTORY OF PRESENT ILLNESS: This is another admission for this 49-year-old white male. He became extremely depressed and presented to the emergency room for treatment. He was suicidal. REVIEW OF SYSTEMS: He denies any neurologic problems, although he has had headache. He smokes heavily. He has had no chest pain, cough, hemoptysis, history of heart disease, hypertension, palpitations, syncope, abdominal pain, nausea, vomiting, hematemesis, melena, hematochezia, jaundice, hepatitis, cirrhosis, renal failure, frequency, urgency, dysuria, diabetes, etc. Past medical history, family history, personal and social histories reveal that he uses an albuterol inhaler. He is on Depakote 1 g at bedtime, Seroquel 100 mg at bedtime, and hydroxyzine 50 mg b.i.d. He is not allergic to any medications. 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 He does not abuse drugs or alcohol. He does smoke. PHYSICAL EXAMINATION: Blood pressure 144/67, pulse 75, respirations 20. He is afebrile. In general, he appeared to be very slender and in no acute distress. Skin color is normal. Skin is warm, dry. Lymph nodes not enlarged. Head, ears, eyes, nose, mouth, and throat were normal. Neck veins not distended. Chest is clear. He did have increased AP diameter with poor breath sounds. No rales, rhonchi, or wheezing. Cardiac exam demonstrates sinus rhythm and no murmur or extra sounds. The abdomen is flat, soft, nontender without any visceromegaly or masses. Bowel sounds are present. Extremities: Normal. Neurologically he is intact. He is admitted to the hospital with diagnoses: 1. Major depression with suicidal thoughts. 2. Chronic obstructive pulmonary disease. 3. Previous cerebrovascular accident. RECOMMENDATIONS: None at this time. MMODL / IJN: [id number] /
[2019-09-25] MEDS: NICOTINE 14MG/24HR PATCH TRANSDERM SCH (08:43)
[2019-09-25] MEDS: SERTRALINE 50 MG TAB PO SCH (08:43)
--- NOTE | 2019-09-25 10:30 | P.PN ---
Progress Note - Text Progress Note Date: 09/25/19 Interval History: Patient was seen lying down in his bed and was awoken and was directable and a greeable to speak to leader writer in the office. Patient continues to appear disheveled however did state that he took a shower yesterday. Patient offers no overnight complaints and states that "I slept all day". Patient continues to have poverty of thought and content and gives few details. Patient states that he has been eating his meals and has been taking his medications. Patient states that he feels that his mood has been mildly improving at this time and denies any anxiety. He states that he has not been going to any groups and feels unmotivated however patient was encouraged to attend groups to improve his coping skills and distress tolerance and patient was agreeable to start going to groups today. At this time patient denies any suicidal or homical ideations, intent or plan. Patient denies any auditory, visual hallucinations and denies any paranoia or delusions. Patient denies any side effects from the medications and has been compliant with meds. Mental Status Exam: General Appearance: Patient appears to be older than stated age is alert, directable and attempts to cooperate. Thin/frail has a morales and disheveled hair. Fair eye contact. Behavior: Patient is calmly seated without any agitated behavior. Speech: Patient's speech is fluent and nonpressured. Soft-spoken. Mood/Affect: Patient reports their mood is mildly improving, affect is congruent and constricted. Suicidality/Homicidality: Patient denies having any suicidal or homicidal ideation intent or plan. Perceptions: Patient denies any auditory or visual hallucinations. Though content/process: There is no evidence of any delusional thought content and thought process is linear and goal-directed. Poverty of thought Memory and concentration: AOX3, grossly intact for the purposes of this session. Judgment and insight: poor, improving mildly. Assessment Major depressive disorder, without psychotic features Anxiety disorder unspecified Cannabis use disorder Nicotine dependence Plan: -Patient continues to meet criteria for inpatient psychiatric admission for symptom stabilization and safety. Patient has signed adult voluntary form and medication consent and was placed in patient's chart. -Medications: We'll continue Zoloft 50 mg daily for mood/anxiety. We'll continue with Remeron 50 mg daily at night for sleep/mood/appetite. Continue with BuSpar 7.5 mg twice a day as needed for anxiety. -When necessary Geodon and Ativan for agitation/aggression. -NRT - nicotine patch -SW on board for discharge planning.
[2019-09-25] MEDS: MIRTAZAPINE 15 MG TAB PO SCH (20:53)
[2019-09-26 06:53] VITALS: TEMP 97.7
[2019-09-26] MEDS: NICOTINE 14MG/24HR PATCH TRANSDERM SCH (08:55)
[2019-09-26] MEDS: SERTRALINE 50 MG TAB PO SCH (08:55)
--- NOTE | 2019-09-26 10:20 | P.PN ---
Progress Note - Text Progress Note Date: 09/26/19 Interval History: Patient was seen lying down in his bed and was awoken. Patient was directable and agreeable to speak to commercial lines underwriter in the office. Patient continues to appear disheveled and states that he did not shower today or yesterday. Patient offers no overnight complaints and claims that he has been getting along with people on the unit. Patient has not been visible much on the unit and remains in his room. He claims that he is feeling "better" with regards to his mood and anxiety. Patient continues to be superficially cooperative during the interview. He did agree to shower today and attend groups. Patient states that he has been eating his meals and has been taking his medications. Patient was agreeable to have his medication increased tomorrow. At this time patient denies any suicidal or homical ideations, intent or plan. Patient denies any auditory, visual hallucinations and denies any paranoia or delusions. Patient denies any side effects from the medications and has been compliant with meds. Mental Status Exam: General Appearance: Patient appears to be older than stated age is alert, directable and attempts to cooperate. Thin/frail, disheveled hair, unkempt morales. Fair eye contact. Behavior: Patient is calmly seated without any agitated behavior. Speech: Patient's speech is fluent and nonpressured. Soft-spoken, mildly improving. Mood/Affect: Patient reports their mood is mildly improving, affect is congruent and constricted. Suicidality/Homicidality: Patient denies having any suicidal or homicidal ideation intent or plan. Perceptions: Patient denies any auditory or visual hallucinations. Though content/process: There is no evidence of any delusional thought content and thought process is linear and goal-directed. Poverty of thought/content. Memory and concentration: AOX3, grossly intact for the purposes of this session. Judgment and insight: poor, improving mildly. Assessment Major depressive disorder, without psychotic features Anxiety disorder unspecified Cannabis use disorder Nicotine dependence Plan: -Patient continues to meet criteria for inpatient psychiatric admission for symptom stabilization and safety. Patient has signed adult voluntary form and medication consent and was placed in patient's chart. -Medications: We'll increase Zoloft 100 mg daily for mood/anxiety. We'll continue with Remeron 15 mg daily at night for sleep/mood/appetite. Continue with BuSpar 7.5 mg twice a day as needed for anxiety. -When necessary Geodon and Ativan for agitation/aggression. -NRT - nicotine patch -SW on board for discharge planning. Likely discharge in 1-2 days.
[2019-09-26] MEDS: MIRTAZAPINE 15 MG TAB PO SCH (20:30)
[2019-09-27 06:45] VITALS: BP 138/65; PULSE 59
[2019-09-27] MEDS: NICOTINE 14MG/24HR PATCH TRANSDERM SCH (08:43)
[2019-09-27] MEDS ORDERED: SERTRALINE 100 MG TAB PO SCH (09:00)
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
== END 2019-09-27 13:57 | disposition home or self-care (01) | DRG 885 ==
LOC: EC 03:10 → 3MHU 04:59
PROVIDERS: ADMIT Psychiatry & Neurology Psychiatry; ATTEND Psychiatry & Neurology Psychiatry
DX: F32.2 Major depressive disorder, single episode, severe without psychotic features (principal); R45.851 Suicidal ideations; F12.10 Cannabis abuse, uncomplicated; F17.210 Nicotine dependence, cigarettes, uncomplicated; F41.9 Anxiety disorder, unspecified; I25.2 Old myocardial infarction; J44.9 Chronic obstructive pulmonary disease, unspecified; Z59.0 Homelessness; Z79.02 Long term (current) use of antithrombotics/antiplatelets; Z79.82 Long term (current) use of aspirin; Z79.899 Other long term (current) drug therapy; Z82.49 Family history of ischemic heart disease and other diseases of the circulatory system; Z83.3 Family history of diabetes mellitus; Z86.73 Personal history of transient ischemic attack (TIA), and cerebral infarction without residual deficits; Z91.5 Personal history of self-harm; Z56.0 Unemployment, unspecified; I67.1 Cerebral aneurysm, nonruptured; Z71.41 Alcohol abuse counseling and surveillance of alcoholic; Z71.51 Drug abuse counseling and surveillance of drug abuser; F10.10 Alcohol abuse, uncomplicated
CPT/HCPCS: 80053; 80061; 80306; 82075; 82248; 83036; 84443; 85025; 99285

== ENCOUNTER 2019-09-29 00:23 | Emergency (ER) | payer OTHER ==
--- NOTE | 2019-09-29 00:44 | ED ---
Anxiety HPI - General Chief Complaint: Anxiety Stated Complaint: Mental health Time Seen by Provider: 09/29/19 00:36 Source: patient Mode of arrival: ambulatory - History of Present Illness Initial Comments: Patient is a 49-year-old male with history of depression exudates presenting to emergency Department chief complaint of anxiety. Patient reports he was at a friend's house smoking marijuana and watching a movie when he lost track of time and forgot to return to his correction. Patient reports he could possibly be banned from the correction due to not returning on time. He reports the situation has caused an increase in anxiety. Patient denies any complaints at this time. Patient denies any suicidal thoughts or ideations at this time. - Related Data Home Medications: Home Medications Medication Instructions Recorded Confirmed Albuterol Inhaler [Ventolin Hfa 2 puff INHALATION RT-Q4H PRN 08/14/19 08/29/19 Inhaler] Previous Rx's Medication Instructions Recorded Mirtazapine [Remeron] 15 mg PO HS 28 Days tab 09/27/19 Nicotine 14Mg/24Hr Patch [Habitrol] 1 patch TRANSDERM DAILY 14 Days 09/27/19 patch Sertraline [Zoloft] 100 mg PO DAILY 28 Days tab 09/27/19 Allergies/Adverse Reactions: Allergies Allergy/AdvReac Type Severity Reaction Status Date / Time horseradish Allergy Anaphylaxis Verified 09/29/19 00:34 shellfish derived [Shellfish] Allergy Anaphylaxis Verified 09/29/19 00:34 venom-wasp Allergy Anaphylaxis Verified 09/29/19 00:34 Review of Systems ROS Statement: Those systems with pertinent positive or pertinent negative responses have been documented in the HPI. ROS Other: All systems not noted in ROS Statement are negative. 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 Past Anesthesia/Blood Transfusion Reactions: Unable to Obtain Additional Past Anesthesia/Blood Transfusion Reaction / Comment(s): Pt has never had general/spinal anesthesia Past Psychological History: Anxiety, Bipolar, Depression, Schizoaffective Disorder, Schizophrenia Smoking Status: Current every day smoker Past Alcohol Use History: None Reported Past Drug Use History: Marijuana - Past Family History Mother Family Medical History: CVA/TIA, Diabetes Mellitus, Myocardial Infarction ([place]) Father Additional Family Medical History / Comment(s): Emphesema General Exam Limitations: no limitations General appearance: alert, in no apparent distress Head exam: Present: atraumatic, normocephalic, normal inspection Eye exam: Present: normal appearance Pupils: Present: normal accommodation ENT exam: Present: normal exam Neck exam: Present: normal inspection Respiratory exam: Present: normal lung sounds bilaterally Cardiovascular Exam: Present: regular rate, normal rhythm, normal heart sounds Extremities exam: Present: normal inspection, full ROM Back exam: Present: normal inspection, full ROM Neurological exam: Present: alert, oriented X3 Psychiatric exam: Present: normal affect, anxious Skin exam: Present: warm, dry, intact, normal color Course Vital Signs 09/29/ 00:30 Temperature 97.8 F Pulse Rate 97 Respiratory 20 Rate Blood Pressure 139/73 O2 Sat by Pulse 97 Oximetry Medical Decision Making - Medical Decision Making Patient is a 49-year-old male presenting to emergency department with a chief complaint of anxiety. Physical examination is remarkable. Patient appears to be anxious but not suicidal. Patient denies nausea vomiting diarrhea. Patient has recently smoked marijuana. Patient denies suicidal thoughts or ideations. Patient given food and resting comfortably. Patient given 1 mg of Ativan. Patient also given his daily medication. On reevaluation patient sleeping, he was woken up and the anxiety appears to have resolved. This time patient will be discharged. Strict return parameters were thoroughly discussed with patient was understanding and agreeable. Case discussed with physician. Disposition Clinical Impression: Acute anxiety Disposition: HOME SELF-CARE Condition: Stable Instructions (If sedation given, give patient instructions): Generalized Anxiety Disorder (ED) Additional Instructions: Please follow up with [facility]. Please return to emergency department if symptoms worsen. Is patient prescribed a controlled substance at d/c from ED?: No Referrals: Flash Schofield MD [Primary Care Provider] - 1-2 days Time of Disposition: 03:04
[2019-09-29] MEDS ORDERED: MIRTAZAPINE 15 MG TAB PO STA (01:20)
[2019-09-29] MEDS ORDERED: LORazepam 1 MG TAB PO STA (01:21)
[2019-09-29 05:49] VITALS: BP 129/71; PULSE 89; RESP 18; TEMP 98
== END 2019-09-29 03:30 | disposition home or self-care (01) ==
LOC: EC 00:23
DX: F41.9 Anxiety disorder, unspecified (principal); J44.9 Chronic obstructive pulmonary disease, unspecified; F17.200 Nicotine dependence, unspecified, uncomplicated; Z91.013 Allergy to seafood; Z91.018 Allergy to other foods; Z91.038 Other insect allergy status; Z79.899 Other long term (current) drug therapy
CPT/HCPCS: 99283

== ENCOUNTER 2019-11-16 21:03 | Inpatient (IN) | payer MEDICAID, OTHER ==
--- NOTE | 2019-11-16 22:04 | ED ---
Psych HPI - General Chief Complaint: Psychiatric Symptoms Stated Complaint: Suicidal Time Seen by Provider: 11/16/19 21:29 Source: patient Mode of arrival: ambulatory - History of Present Illness Initial Comments: This patient is a 49-year-old man with history of depression and previous suicidal ideation. He presents with complaint that he has been feeling suicidal. He states that this been getting worse over the past weeks to month. He is been taking medication but he stopped taking Zoloft because a friend of his advised him that it should not be taken if he had a history of stroke. He also had other psychiatric medications that he states were lost when he was barred from the intermediate. The patient states that tonight he was being told that he could not stay with a friend any longer so he had nowhere to go. He states that he is depressed and now considering jumping in the river. Complaint: suicidal ideation, feels depressed Onset/Timin -: month(s) Associated Psychiatric Symptoms: depression, suicidal ideation History of same: Yes Quality: getting worse Improves With: none Context: not taking psychiatric medications, significant life stressor Associated Symptoms: denies other symptoms - Related Data Home Medications Medication Instructions Recorded Confirmed Albuterol Inhaler [Ventolin Hfa 2 puff INHALATION RT-Q4H PRN 08/14/19 08/29/19 Inhaler] Previous Rx's Medication Instructions Recorded Mirtazapine [Remeron] 15 mg PO HS 28 Days tab 09/27/19 Nicotine 14Mg/24Hr Patch [Habitrol] 1 patch TRANSDERM DAILY 14 Days 09/27/19 patch Sertraline [Zoloft] 100 mg PO DAILY 28 Days tab 09/27/19 Allergies Allergy/AdvReac Type Severity Reaction Status Date / Time horseradish Allergy Anaphylaxis Verified 11/16/19 21:20 shellfish derived [Shellfish] Allergy Anaphylaxis Verified 11/16/19 21:20 venom-wasp Allergy Anaphylaxis Verified 11/16/19 21:20 Review of Systems ROS Statement: Those systems with pertinent positive or pertinent negative responses have been documented in the HPI. ROS Other: All systems not noted in ROS Statement are negative. Constitutional: Denies: fever, chills Respiratory: Denies: cough, dyspnea Cardiovascular: Denies: chest pain, palpitations, syncope Gastrointestinal: Denies: abdominal pain, nausea, vomiting Skin: Denies: rash Neurological: Denies: headache, weakness Psychiatric: Reports: depression, suicidal thoughts. 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 Past Anesthesia/Blood Transfusion Reactions: Unable to Obtain Additional Past Anesthesia/Blood Transfusion Reaction / Comment(s): Pt has never had general/spinal anesthesia Past Psychological History: Anxiety, Bipolar, Depression, Schizoaffective Disorder, Schizophrenia Smoking Status: Current every day smoker Past Alcohol Use History: None Reported Past Drug Use History: Marijuana - Past Family History Mother Family Medical History: CVA/TIA, Diabetes Mellitus, Myocardial Infarction ([place]) Father Additional Family Medical History / Comment(s): Emphesema General Exam Limitations: no limitations General appearance: alert, in no apparent distress Head exam: Present: atraumatic, normocephalic Eye exam: Present: normal appearance. Absent: scleral icterus, conjunctival injection Respiratory exam: Present: normal lung sounds bilaterally. Absent: respiratory distress, wheezes, rales, rhonchi, stridor Cardiovascular Exam: Present: regular rate, normal rhythm, normal heart sounds. Absent: systolic murmur, diastolic murmur, rubs, gallop GI/Abdominal exam: Present: soft. Absent: distended, tenderness, guarding, rebound, rigid Extremities exam: Present: normal inspection, normal capillary refill. Absent: pedal edema, calf tenderness Back exam: Present: normal inspection. Absent: CVA tenderness (R), CVA tenderness (L) Neurological exam: Present: alert Psychiatric exam: Present: suicidal ideation Skin exam: Present: warm, dry, intact, normal color. Absent: rash Course Vital Signs 11/16/19 21:17 Temperature 98.3 F Pulse Rate 81 Respiratory 18 Rate Blood Pressure 127/79 O2 Sat by Pulse 97 Oximetry Disposition Clinical Impression: Suicidal ideation Disposition: ADMITTED IP TO THIS HOSP Condition: Fair Is patient prescribed a controlled substance at d/c from ED?: No Referrals: Flash Schofield MD [Primary Care Provider] - 1-2 days
[2019-11-17] MEDS ORDERED: MAGNESIUM HYDROXIDE 2,400 MG/10 ML CUP PO PRN (02:13)
[2019-11-17] MEDS ORDERED: MAG HYDROX/AL HYDROX/SIMETH 30 ML CUP PO PRN (02:13)
[2019-11-17] MEDS ORDERED: ACETAMINOPHEN TAB 325 MG TAB PO PRN (02:13)
[2019-11-17] MEDS ORDERED: ZIPRASIDONE 20 MG VIAL IM PRN (02:13)
[2019-11-17 08:25] LABS: Basophils # (A) 0.1 k/uL (0-0.2); Basophils % (A) 1 %; Eosinophils # (A) 0.4 k/uL (0-0.7); Eosinophils % (A) 4 %; HCT 45.5 % (39.0-53.0); HGB 13.7 gm/dL (13.0-17.5); Lymphocytes % (A) 26 %; MCH 27.8 pg (25.0-35.0); MCHC 30.2 g/dL (31.0-37.0); MCV 92.2 fL (80.0-100.0); Mean Platelet Volume 6.6; Monocytes # (A) 0.6 k/uL (0-1.0); Monocytes % (A) 5 %; Neutrophils # (A) 6.8 k/uL (1.3-7.7); Neutrophils % (A) 61 %; Platelet Count 452 k/uL (150-450); RBC 4.94 m/uL (4.30-5.90); RDW 14.1 % (11.5-15.5); WBC 11.3 k/uL (3.8-10.6)
[2019-11-17 08:43] LABS: ALT 12 U/L (4-49); AST 23 U/L (17-59); African American GFR (CKD) >90 (>60 ml/min/1.73 sqM); Alkaline Phosphatase 118 U/L (38-126); Anion Gap 7 mmol/L; Bilirubin, Delta 0.3 mg/dL (0.0-0.2); Bilirubin,Unconjugated 0.1 mg/dL (0.0-1.1); Blood Urea Nitrogen 19 mg/dL (9-20); Calcium 9.3 mg/dL (8.4-10.2); Carbon Dioxide 27 mmol/L (22-30); Chloride 107 mmol/L (98-107); Cholesterol 224 mg/dL (<200); Glucose 86 mg/dL (74-99); HDL Cholesterol 46 mg/dL (40-60); LDL Cholesterol,Calculated 158 mg/dL (0-99); Non-African American GFR(CKD) >90 (>60 ml/min/1.73 sqM); Potassium 4.7 mmol/L (3.5-5.1); Sodium 141 mmol/L (137-145); Total Bilirubin 0.4 mg/dL (0.2-1.3); Total Protein 6.7 g/dL (6.3-8.2); Triglycerides 99 mg/dL (<150)
[2019-11-17 14:41] VITALS: BMI 16.4
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
--- NOTE | 2019-11-17 18:30 | CONS ---
CONSULTATION CHIEF COMPLAINT: Major depression with suicidal thoughts. HISTORY OF PRESENT ILLNESS: This is another admission for this 49-year-old white male. He became particularly depressed and despondent and was thinking about suicide and came to the emergency room. REVIEW OF SYSTEMS: He has had no headaches, problems with vision or hearing, chest pain, cough, hemoptysis, hypertension, heart disease, palpitations, abdominal pain, nausea, vomiting, hematemesis, melena, hematochezia, jaundice, hepatitis, renal failure, dysuria, frequency, diabetes, etc. Past medical history, family history, personal and social histories are all otherwise unremarkable and noncontributory and can be found in his admitting note. He is not on any medication. PHYSICAL EXAMINATION: Blood pressure is 131/64 with a pulse of 73. Respirations of 15 and he is afebrile. In general, he appeared to be in no acute distress. He did appear to be depressed. Skin color is normal. Skin is warm, dry. Lymph nodes not enlarged. Head, ears, eyes, nose, mouth, and throat were normal. Neck veins are not distended. Thyroid was not enlarged. Chest is clear. Cardiac exam is normal. Abdomen is soft, nontender. Extremities are normal. IMPRESSION: Major depression with suicidal thoughts. RECOMMENDATIONS: None at this time. He does not appear to have any medical issues. MMODL / IJN: [id number] /
[2019-11-17 20:21] LABS: Hemoglobin A1C 5.9 % (4.0-6.0)
[2019-11-18] MEDS: ESCITALOPRAM 10 MG TAB PO SCH (09:11)
--- NOTE | 2019-11-18 13:20 | P.PN ---
Progress Note - Text Interval history: The patient is found in the hallway he follows me to an interview room. He reports feeling depressed and frustrated. He states he has not been attending groups as he doesn't want to "bring other people down". We discussed the importance of attending groups and the benefits they may provide. We reviewed his psychotropic medication and his questions were answered. He continues to have concern about where he will stay upon discharge as he was told he cannot return to the [facility] for one year. We discussed that we can have social work call to confirm if that is in fact true. Mental status exam: The patient is a male appearing older than his stated age she is thin he has a disheveled appearance hygiene is improved. He is dressed in hospital gowns. Speech is fluent spontaneous nonpressured. He reports a depressed mood with feelings of irritability. In terms of suicidal thoughts he feels safe in the hospital he reports no homicidal ideation intent or plan. He is endorsing no auditory or visual hallucinations or any specific delusions. There is no objective evidence of psychosis. Thought process is circumstantial at times but mostly linear. He demonstrates no tangential thinking loose associations or flight of ideas. He demonstrates no verbal or physical aggressiveness. He is cooperative and easily directed. He Plan: The patient will continue on the Lexapro is written. Requesting nicotine patch which will be ordered. He is encouraged to participate in the milieu. We will monitor him for safety. We will ask social work to help him explore placement options upon discharge. Vital signs reviewed.
[2019-11-18] MEDS: NICOTINE 14MG/24HR PATCH TRANSDERM SCH (14:16)
[2019-11-19] MEDS: ESCITALOPRAM 10 MG TAB PO SCH (09:14)
[2019-11-19] MEDS: NICOTINE 14MG/24HR PATCH TRANSDERM SCH (09:14)
--- NOTE | 2019-11-19 12:22 | P.PN ---
Progress Note - Text Progress Note Date: 11/19/19 Interval History: Patient was seen wandering the hallways and was directable and agreeable to mel peguero to write in the office. Patient states that he has been dealing with chronic homelessness and depression for quite some time now. He states that he read the side effects of the medications that he was on before the Zoloft and states that he was scared of having a stroke and having any other problem and stopped taking the medication several weeks ago. He states that he has been feeling depressed since then and claims that he was kicked out of the friend's house that he was living out and didn't have anywhere else to go. Patient claims that he is started on Lexapro and has taken 2 days of it so far and claims that it helped his mood mildly at this time. He states that he has been trying to go to some groups. Patient claims that he had poor sleep last night as the patient beside him was "yelling all night". At this time patient denies any suicidal or homical ideations, intent or plan. Patient denies any auditory, visual hallucinations and denies any paranoia or delusions. Patient denies any side effects from the medications and has been compliant with meds. Mental Status Exam: General Appearance: Patient appears to be older than stated age is alert, and attempts to cooperate. Patient is disheveled and has poor hygiene and grooming. Behavior: Patient is calmly seated without any agitated behavior. Speech: Patient's speech is fluent and nonpressured. Mood/Affect: Mood is improving mildly, affect is congruent and constricted. Suicidality/Homicidality: Patient denies having any suicidal or homicidal ideation intent or plan. Perceptions: Patient denies any visual hallucinations and denies any auditory hallucinations Though content/process: There is no evidence of any delusional thought content and thought process is linear and goal-directed. Patient is guarded at times. Memory and concentration: AOX3, grossly intact for the purposes of this session Judgment and insight: Improving. Assessment Major depressive disorder, recurrent without psychotic features Cannabis abuse Nicotine dependence Plan: -Patient continues to meet criteria for inpatient psychiatric admission for symptom stabilization and safety. Patient has signed adult voluntary form and medication consent and was placed in patient's chart. -Medications: Will continue with Lexapro 10 mg daily for mood with plan to titrate up as tolerated. Will also add melatonin 3 mg daily at bedtime for sleep. -When necessary Trey for agitation/aggression. -NRT - nicotine patch -SW on board for discharge planning. Patient claims that he has no place to go as he is not allowed back in the nursing home. drum worker to clarify this and to continue working on disposition. Patient likely discharge in 1-2 days.
[2019-11-19] MEDS ORDERED: MELATONIN 3 MG TABLET PO SCH (21:00)
[2019-11-20] MEDS: NICOTINE 14MG/24HR PATCH TRANSDERM SCH (09:03)
[2019-11-20] MEDS: ESCITALOPRAM 10 MG TAB PO SCH (09:03)
--- NOTE | 2019-11-20 10:32 | P.PN ---
Progress Note - Text Progress Note Date: 11/20/19 Interval History: Patient was seen wandering the hallways and was directable and agreeable to sp eak to television writer in the office. Patient states that he has been mildly improving in terms of his mood. He states that he did sleep somewhat better last night however did have some awakenings at night. Patient claims that he is trying to catch up on his sleep at this time however is attempting to go to groups. Patient spoke about his medications and also taking Seroquel in the past however patient was educated on the side effects of Seroquel and how he is not indicated at this time. He states that he has been trying to go to some groups to work on his coping skills. Patient spoke about the situation at the detention which he claims that he is not allowed back because he "smells like marijuana". At this time patient denies any suicidal or homical ideations, intent or plan. Patient denies any auditory, visual hallucinations and denies any paranoia or delusions. Patient denies any side effects from the medications and has been compliant with meds. Mental Status Exam: General Appearance: Patient appears to be older than stated age is alert, and attempts to cooperate. Patient is disheveled and has poor hygiene and grooming. Behavior: Patient is calmly seated without any agitated behavior. Speech: Patient's speech is fluent and nonpressured. Mood/Affect: Mood is improving mildly, affect is congruent and constricted. Suicidality/Homicidality: Patient denies having any suicidal or homicidal ideation intent or plan. Perceptions: Patient denies any visual hallucinations and denies any auditory hallucinations Though content/process: There is no evidence of any delusional thought content and thought process is linear and goal-directed. Patient is guarded at times and is evasive. Memory and concentration: AOX3, grossly intact for the purposes of this session Judgment and insight: Improving mildly. Assessment Major depressive disorder, recurrent without psychotic features Cannabis abuse Nicotine dependence Plan: -Patient continues to meet criteria for inpatient psychiatric admission for symptom stabilization and safety. Patient has signed adult voluntary form and medication consent and was placed in patient's chart. -Medications: Will continue with Lexapro 10 mg daily for mood with plan to titrate up as tolerated. Will increase melatonin 6 mg daily at bedtime for sleep. -When necessary Geodon for agitation/aggression. -NRT - nicotine patch -SW on board for discharge planning. Patient claims that he has no place to go as he is not allowed back in the detention, will speak with social media developer about alternative options. brewery cellar worker to clarify this and to continue working on disposition. Patient likely discharge tomorrow.
[2019-11-20] MEDS ORDERED: MELATONIN 3 MG TABLET PO SCH (21:00)
[2019-11-21 06:57] VITALS: BP 105/66; PULSE 68; RESP 18; TEMP 97.6
[2019-11-21] MEDS: NICOTINE 14MG/24HR PATCH TRANSDERM SCH (09:27)
[2019-11-21] MEDS: ESCITALOPRAM 10 MG TAB PO SCH (09:27)
--- NOTE | 2019-11-21 09:47 | P.DS ---
Providers Date of admission: 11/17/19 00:10 Expected date of discharge: 11/21/19 Attending physician: Ga Garcia MD Consults: 11/17/19 02:13 Consult Physician Routine Consulting Provider: Flash Schofield Consult Reason/Comments: New admission, H&P Do you want consulting provider notified?: Yes, Notify in am Primary care physician: Flash Schofield - Discharge Diagnosis(es) (1) Major depressive disorder, recurrent episode Current Visit: Yes Status: Acute Priority: High (2) Cannabis use disorder, mild, abuse Current Visit: Yes Status: Acute Priority: Medium (3) Nicotine dependence Current Visit: Yes Status: Acute Priority: Low Hospital Course: Admission HPI: This patient is a 49-year-old single male who was admitted to the mental health unit through the emergency room with reports of acute suicidal ideation. He presented to the emergency room reporting worsening symptoms of depression with suicidal ideation. Again he describes walking in front of traffic to end his life. He states that he has been homeless now for 5 years. He has been going from place to place and was recently kicked out by friends just yesterday. He states he was residing at the local [place] [facility] for several months prior to that but was kicked out after he tried to reenter smelling of marijuana. He states that the mother of his 5-year-old son called and said his son was quite ill and is in the hospital but said that he is not welcome to come visit. He began feeling hopeless and overwhelmed. He indicates his appetite stable sleep has been intermittent. He states he continues to have suicidal thoughts no homicidal ideation intent or plan. He reports no auditory or visual hallucinations or any specific delusions. He is reporting no history of hypomanic or manic episodes. He is endorsing no significant anxiety symptoms currently. Hospital course: Upon admission to the unit patient was initially depressed however was directable and agreeable to commence treatment. Patient got along well with other patients on the unit and followed unit protocol. Patient was mainly isolative on the unit however was directable. Patient was compliant with the medications and denied any side effects throughout hospital course. Patient was started on Lexapro and titrated up to a dose of 10 mg daily for mood/anxiety. Patient was also started on melatonin for sleep. Patient spoke of his stressors and engaged in therapy both group and individual. Patient was also seen by medical team for history and physical exam. Throughout the course of the hospitalization patient gradually improved with regards to mood, anxiety, sleep and became future oriented with improved insight and judgment. On the day of discharge patient denied any suicidal or homicidal ideations intent or plan denied any auditory or visual hallucinations. Patient endorsed wanting to live for his family and his future. The patient denied any access to guns or weapons. Patient denied any paranoia and did not endorse any delusions. Patient was preoccupied with a place to stay any leaves the hospital. Patient does have a significant history of substance abuse and was counseled on abstaining from all substances including alcohol and marijuana. Patient was offered substance abuse treatment however he declined. Patient was also counseled on the medications and need for regular compliance and was encouraged to follow-up with their outpatient appointment for mental health and also for primary care. Mental status exam: General Appearance: Patient appears to be older than stated age is alert, directable, and cooperative. Patient is in no acute distress and has chronically poor hygiene and grooming Behavior: Patient is calmly seated without any agitated behavior. Speech: Patient's speech is fluent and nonpressured. Mood/Affect: Patient reports their mood is "good", affect is congruent and euthymic. Suicidality/Homicidality: Patient denies having any suicidal or homicidal ideation intent or plan. Perceptions: Patient denies any auditory or visual hallucinations. Though content/process: There is no evidence of any delusional thought content and thought process is linear and goal-directed. Patient was preoccupied with getting a place to go when he leaves the hospital. Memory and concentration: AOX3, grossly intact for the purposes of this session. Can spell "WORLD" backwards correctly. Judgment and insight: improved, guarded prognosis. Impression: Major depressive disorder, recurrent episode Cannabis abuse Nicotine dependence Plan: -Continue with discharge today as patient has improved and stabilized psychiatrically and is not currently an imminent threat to himself and/or others. -Continue medications: Lexapro 10 mg daily for mood/anxiety, melatonin 6 mg daily at bedtime for sleep. -Patient was counseled on the need for medication compliance and appropriate follow-up at mental health and also primary care for medical issues. Patient verbalized understanding and agreed. -Social work spoke with the [place] [facility] that patient came from who claims that p atient is welcome back at this time. Patient is chronically homeless and has been living with different people. Social work also to arrange for patients follow up appointments with [facility] for psychiatric care along with follow up with primary care provider. -Patient counseled on abstaining from recreational drugs and marijuana and alcohol. Was informed/educated on the adverse effects on their physical and mental health. Patient verbally agreed and understood. Patient declined many substance abuse treatment at this time. -Patient was instructed to return to the hospital or seek immediate medical care if their psychiatric or medical symptoms do worsen or reoccur. Allergies Allergy/AdvReac Type Severity Reaction Status Date / Time horseradish Allergy Anaphylaxis Verified 11/16/19 23:00 shellfish derived [Shellfish] Allergy Anaphylaxis Verified 11/16/19 23:00 venom-wasp Allergy Anaphylaxis Verified 11/16/19 23:00 Laboratory Results WBC 11.3 k/uL (3.8-10.6) H 11/17/19 08:01 RBC 4.94 m/uL (4.30-5.90) 11/17/19 08:01 Hgb 13.7 gm/dL (13.0-17.5) 11/17/19 08:01 Hct 45.5 % (39.0-53.0) 11/17/19 08:01 MCV 92.2 fL (80.0-100.0) 11/17/19 08:01 MCH 27.8 pg (25.0-35.0) 11/17/19 08:01 MCHC 30.2 g/dL (31.0-37.0) L 11/17/19 08:01 RDW 14.1 % (11.5-15.5) 11/17/19 08:01 Plt Count 452 k/uL (150-450) H 11/17/19 08:01 Neutrophils % 61 % 11/17/19 08:01 Lymphocytes % 26 % 11/17/19 08:01 Monocytes % 5 % 11/17/19 08:01 Eosinophils % 4 % 11/17/19 08:01 Basophils % 1 % 11/17/19 08:01 Neutrophils # 6.8 k/uL (1.3-7.7) 11/17/19 08:01 Lymphocytes # 3.0 k/uL (1.0-4.8) 11/17/19 08:01 Monocytes # 0.6 k/uL (0-1.0) 11/17/19 08:01 Eosinophils # 0.4 k/uL (0-0.7) 11/17/19 08:01 Basophils # 0.1 k/uL (0-0.2) 11/17/19 08:01 Sodium 141 mmol/L (137-145) 11/17/19 08:01 Potassium 4.7 mmol/L (3.5-5.1) 11/17/19 08:01 Chloride 107 mmol/L (98-107) 11/17/19 08:01 Carbon Dioxide 27 mmol/L (22-30) 11/17/19 08:01 Anion Gap 7 mmol/L 11/17/19 08:01 BUN 19 mg/dL (9-20) 11/17/19 08:01 Creatinine 0.81 mg/dL (0.66-1.25) 11/17/19 08:01 Est GFR (CKD-EPI)AfAm >90 (>60 ml/min/1.73 sqM) 11/17/19 08:01 Est GFR (CKD-EPI)NonAf >90 (>60 ml/min/1.73 sqM) 11/17/19 08:01 Glucose 86 mg/dL (74-99) 11/17/19 08:[address] Glu mg/dL 123 11/17/19 08:01 Hemoglobin A1c 5.9 % (4.0-6.0) 11/17/19 08:01 Calcium 9.3 mg/dL (8.4-10.2) 11/17/19 08:01 Total Bilirubin 0.4 mg/dL (0.2-1.3) 11/17/19 08:01 Conjugated Bilirubin 0.0 mg/dL (0.0-0.3) 11/17/19 08:01 Unconjugated Bilirubin 0.1 mg/dL (0.0-1.1) 11/17/19 08:01 Delta Bilirubin 0.3 mg/dL (0.0-0.2) H 11/17/19 08:01 AST 23 U/L (17-59) 11/17/19 08:01 ALT 12 U/L (4-49) 11/17/19 08:01 Alkaline Phosphatase 118 U/L (38-126) 11/17/19 08:01 Total Protein 6.7 g/dL (6.3-8.2) 11/17/19 08:01 Albumin 4.0 g/dL (3.5-5.0) 11/17/19 08:01 Triglycerides 99 mg/dL (<150) 11/17/19 08:01 Cholesterol 224 mg/dL (<200) H 11/17/19 08:01 LDL Cholesterol, Calc 158 mg/dL (0-99) H 11/17/19 08:01 HDL Cholesterol 46 mg/dL (40-60) 11/17/19 08:01 TSH 1.960 mIU/L (0.465-4.680) 11/17/19 08:01 Vital Signs Temp 97.6 F 11/21/19 06:56 Pulse 68 11/21/19 06:56 Resp 18 11/21/19 06:56 BP 105/66 11/21/19 06:56 Pulse Ox 96 11/21/19 06:56 Patient Condition at Discharge: Stable Plan - Discharge Summary Discharge Rx Participant: No New Discharge Prescriptions: New Nicotine 14Mg/24Hr Patch [Habitrol] 1 patch TRANSDERM DAILY 14 Days patch Escitalopram [Lexapro] 10 mg PO DAILY 28 Days tab Melatonin 6 mg PO HS 28 Days tablet Discharge Medication List Escitalopram [Lexapro] 10 mg PO DAILY 28 Days tab 11/21/19 [Rx] Melatonin 6 mg PO HS 28 Days tablet 11/21/19 [Rx] Nicotine 14Mg/24Hr Patch [Habitrol] 1 patch TRANSDERM DAILY 14 Days patch 11/21/19 [Rx] Follow up Appointment(s)/Referral(s): [facility] [Outside] - 11/22/19 1:00 pm (11-22-19 @ 1:00 with Kaylee Ortega 11-27-19 @ 3:[address] Mattson) Flash Schofield MD [Primary Care Provider] - 1-2 days Activity/Diet/Wound Care/Special Instructions: Activity and diet as tolerated. Avoid the use of street drugs and alcohol. Take all medications as prescribed. When you are in need of refills on your medications please contact your medical provider and/or outpatient psychiatrist to have this done. Please go to scheduled outpatient appointment for aftercare treatment. If symptoms return or become worse, call the crisis line at and/or go to the nearest emergency room for evaluation. Discharge Disposition: HOME SELF-CARE
== END 2019-11-21 14:55 | disposition home or self-care (01) | DRG 885 ==
LOC: EC 21:03 → 3MHU 11-17 00:10
PROVIDERS: ADMIT Psychiatry & Neurology Psychiatry; ATTEND Psychiatry & Neurology Psychiatry
DX: F33.2 Major depressive disorder, recurrent severe without psychotic features (principal); R45.851 Suicidal ideations; F17.200 Nicotine dependence, unspecified, uncomplicated; F41.9 Anxiety disorder, unspecified; J44.9 Chronic obstructive pulmonary disease, unspecified; F12.10 Cannabis abuse, uncomplicated; I25.2 Old myocardial infarction; Z59.0 Homelessness; Z79.899 Other long term (current) drug therapy; Z82.49 Family history of ischemic heart disease and other diseases of the circulatory system; Z83.3 Family history of diabetes mellitus; Z86.73 Personal history of transient ischemic attack (TIA), and cerebral infarction without residual deficits
CPT/HCPCS: 80053; 80061; 82075; 82248; 83036; 84443; 85025; 99285

== ENCOUNTER 2019-12-06 01:21 | Emergency (ER) | payer OTHER ==
[2019-12-06 01:25] VITALS: TEMP 97.7
[2019-12-06 02:00] LABS: Basophils # (A) 0.1 k/uL (0-0.2); Basophils % (A) 1 %; Eosinophils # (A) 0.5 k/uL (0-0.7); Eosinophils % (A) 5 %; HCT 41.2 % (39.0-53.0); HGB 13.2 gm/dL (13.0-17.5); Lymphocytes # (A) 3.5 k/uL (1.0-4.8); Lymphocytes % (A) 32 %; MCH 28.7 pg (25.0-35.0); MCHC 31.9 g/dL (31.0-37.0); MCV 89.9 fL (80.0-100.0); Monocytes # (A) 0.6 k/uL (0-1.0); Monocytes % (A) 6 %; Neutrophils # (A) 5.8 k/uL (1.3-7.7); Neutrophils % (A) 54 %; Platelet Count 356 k/uL (150-450); RBC 4.59 m/uL (4.30-5.90); RDW 13.8 % (11.5-15.5); WBC 10.9 k/uL (3.8-10.6)
[2019-12-06 02:08] LABS: INR 0.9 (<1.2); Partial Thromboplastin Time 24.9 sec (22.0-30.0); Prothrombin Time 9.5 sec (9.0-12.0)
--- NOTE | 2019-12-06 02:08 | XR ---
EXAMINATION TYPE: XR chest 1V portable DATE OF EXAM: 12/06/2019 COMPARISON: 09/20/2019 HISTORY: Chest pain TECHNIQUE: Single view FINDINGS: Heart and mediastinum are normal. Lungs are clear of infiltrate. There are chest leads. The re are no hilar masses. Bony thorax appears intact. IMPRESSION: Normal chest. No change.
[2019-12-06 02:11] LABS: ALT 13 U/L (4-49); AST 26 U/L (17-59); African American GFR (CKD) >90 (>60 ml/min/1.73 sqM); Albumin 4.1 g/dL (3.5-5.0); Alkaline Phosphatase 109 U/L (38-126); Anion Gap 6 mmol/L; Blood Urea Nitrogen 14 mg/dL (9-20); Calcium 9.4 mg/dL (8.4-10.2); Carbon Dioxide 25 mmol/L (22-30); Chloride 104 mmol/L (98-107); Glucose 86 mg/dL (74-99); Magnesium 1.9 mg/dL (1.6-2.3); Non-African American GFR(CKD) >90 (>60 ml/min/1.73 sqM); Potassium 4.3 mmol/L (3.5-5.1); Sodium 135 mmol/L (137-145); Total Bilirubin 0.3 mg/dL (0.2-1.3); Total Protein 6.9 g/dL (6.3-8.2)
[2019-12-06 02:44] VITALS: RESP 18
--- NOTE | 2019-12-06 02:58 | ED ---
Chest Pain HPI - General Chief Complaint: Chest Pain Stated Complaint: Chest Pain Time Seen by Provider: 12/06/19 01:41 Source: patient Mode of arrival: ambulatory Limitations: no limitations - History of Present Illness Initial Comments: This patient's 49-year-old man, currently homeless who presents to have evaluation of chest pain. He states that he was outside in the cold and then his bilateral chest was tight and achy. He was not having any anginal symptoms, no dyspnea, diaphoresis, nausea or vomiting. MD Complaint: chest pain -: hour(s) Onset: during rest Pain Location: left chest, right chest Severity: moderate Quality: tightness Consistency: constant Improves With: nothing Worsens With: nothing Treatments Prior to Arrival: none - Related Data Previous Rx's Medication Instructions Recorded Escitalopram [Lexapro] 10 mg PO DAILY 28 Days tab 11/21/19 Melatonin 6 mg PO HS 28 Days tablet 11/21/19 Nicotine 14Mg/24Hr Patch [Habitrol] 1 patch TRANSDERM DAILY 14 Days 11/21/19 patch guaiFENesin-DM 600/30MG [Mucinex 1 each PO Q12HR #10 tab.er.12h 12/22/19 Dm] Allergies Allergy/AdvReac Type Severity Reaction Status Date / Time horseradish Allergy Anaphylaxis Verified 12/22/19 02:35 shellfish derived [Shellfish] Allergy Anaphylaxis Verified 12/22/19 02:35 venom-wasp Allergy Anaphylaxis Verified 12/22/19 02:35 Review of Systems ROS Statement: Those systems with pertinent positive or pertinent negative responses have been documented in the HPI. ROS Other: All systems not noted in ROS Statement are negative. Constitutional: Denies: fever, chills Respiratory: Denies: cough, dyspnea Cardiovascular: Reports: as per HPI, chest pain. 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 Past Anesthesia/Blood Transfusion Reactions: Unable to Obtain Additional Past Anesthesia/Blood Transfusion Reaction / Comment(s): Pt has never had general/spinal anesthesia Past Psychological History: Anxiety, Bipolar, Depression, Schizoaffective Disorder, Schizophrenia Smoking Status: Smoker, current status unknown Past Alcohol Use History: None Reported Past Drug Use History: Marijuana - Past Family History Mother Family Medical History: CVA/TIA, Diabetes Mellitus, Myocardial Infarction ([place]) Father Additional Family Medical History / Comment(s): Emphesema General Exam Limitations: no limitations General appearance: alert, in no apparent distress Head exam: Present: atraumatic, normocephalic Eye exam: Present: normal appearance. Absent: scleral icterus, conjunctival injection Neck exam: Present: normal inspection, full ROM Respiratory exam: Present: normal lung sounds bilaterally, chest wall tenderness. Absent: respiratory distress, wheezes, rales, rhonchi, stridor Cardiovascular Exam: Present: regular rate, normal rhythm, normal heart sounds. Absent: systolic murmur, diastolic murmur, rubs, gallop GI/Abdominal exam: Present: soft. Absent: distended, tenderness, guarding, rebound, rigid, mass Extremities exam: Present: normal inspection, normal capillary refill. Absent: pedal edema, calf tenderness Back exam: Present: normal inspection. Absent: CVA tenderness (R), CVA tenderness (L) Neurological exam: Present: alert Skin exam: Present: warm, dry, intact, normal color. Absent: rash Course Vital Signs 12/06/19 12/06/19 12/06/19 01:23 01:25 02:25 Temperature 97.7 F Pulse Rate 69 59 L 54 L Respiratory 20 24 18 Rate Blood Pressure 120/67 117/71 O2 Sat by Pulse 99 98 97 Oximetry 12/06/19 03:22 Temperature 97.7 F Pulse Rate 59 L Respiratory 18 Rate Blood Pressure 114/68 O2 Sat by Pulse 98 Oximetry Disposition Clinical Impression: Chest pain Disposition: HOME SELF-CARE Condition: Good Instructions (If sedation given, give patient instructions): Chest Pain (ED) Is patient prescribed a controlled substance at d/c from ED?: No Referrals: Flash Schofield MD [Primary Care Provider] - 1-2 days
[2019-12-06 03:24] VITALS: BP 114/68; PULSE 59
== END 2019-12-06 03:26 | disposition home or self-care (01) ==
LOC: EC 01:21
DX: R07.89 Other chest pain (principal); F17.200 Nicotine dependence, unspecified, uncomplicated; Z86.73 Personal history of transient ischemic attack (TIA), and cerebral infarction without residual deficits; Z95.818 Presence of other cardiac implants and grafts; Z91.018 Allergy to other foods; Z91.013 Allergy to seafood; Z91.038 Other insect allergy status
CPT/HCPCS: 36415; 71045; 80053; 83735; 84484; 85025; 85610; 85730; 93005; 99285

== ENCOUNTER 2019-12-18 01:44 | Emergency (ER) | payer OTHER ==
[2019-12-18 01:57] VITALS: TEMP 97.9
--- NOTE | 2019-12-18 02:18 | XR ---
EXAMINATION TYPE: XR chest 2V DATE OF EXAM: 12/18/2019 COMPARISON: NONE HISTORY: Chest pain TECHNIQUE: 2 views FINDINGS: Heart and mediastinum are normal. Lungs are clear. Diaphragm is normal. Bony thorax appears normal. IMPRESSION: Normal chest. No change.
--- NOTE | 2019-12-18 03:44 | ED ---
General Adult HPI - General Chief complaint: ENT Stated complaint: Sore Throat Time Seen by Provider: 12/18/19 02:01 Source: patient Mode of arrival: ambulatory Limitations: no limitations - History of Present Illness Initial comments: Patient is a 49-year-old male presenting to emergency Department with chief complaint of sore throat and congestion. States started about 2 days ago. States he does have a nonproductive cough that is chronic due to his smoking. Denies any night sweats or chills. Denies any drooling dysphagia or odontophagia. Denies any shortness of breath or chest pain. Denies taking medications that his symptoms. Patient states that he is homeless and it is going just noted tonight so he needs somewhere to stay. - Related Data Previous Rx's Medication Instructions Recorded Escitalopram [Lexapro] 10 mg PO DAILY 28 Days tab 11/21/19 Melatonin 6 mg PO HS 28 Days tablet 11/21/19 Nicotine 14Mg/24Hr Patch [Habitrol] 1 patch TRANSDERM DAILY 14 Days 11/21/19 patch Allergies Allergy/AdvReac Type Severity Reaction Status Date / Time horseradish Allergy Anaphylaxis Verified 12/18/19 01:56 shellfish derived [Shellfish] Allergy Anaphylaxis Verified 12/18/19 01:56 venom-wasp Allergy Anaphylaxis Verified 12/18/19 01:56 Review of Systems ROS Statement: Those systems with pertinent positive or pertinent negative responses have been documented in the HPI. ROS Other: All systems not noted in ROS Statement are negative. 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 Past Anesthesia/Blood Transfusion Reactions: Unable to Obtain Additional Past Anesthesia/Blood Transfusion Reaction / Comment(s): Pt has never had general/spinal anesthesia Past Psychological History: Anxiety, Bipolar, Depression, Schizoaffective Disorder, Schizophrenia Smoking Status: Smoker, current status unknown Past Alcohol Use History: None Reported Past Drug Use History: Marijuana - Past Family History Mother Family Medical History: CVA/TIA, Diabetes Mellitus, Myocardial Infarction ([place]) Father Additional Family Medical History / Comment(s): Emphesema General Exam Limitations: no limitations General appearance: alert, in no apparent distress Head exam: Present: atraumatic, normocephalic, normal inspection Eye exam: Present: normal appearance Pupils: Present: normal accommodation ENT exam: Present: normal exam, normal oropharynx (Uvula midline. No tonsillar erythema or exudates.), mucous membranes moist, TM's normal bilaterally, normal external ear exam Neck exam: Present: normal inspection Respiratory exam: Present: normal lung sounds bilaterally. Absent: wheezes Cardiovascular Exam: Present: regular rate, normal rhythm, normal heart sounds Extremities exam: Present: normal inspection, full ROM Back exam: Present: normal inspection, full ROM Neurological exam: Present: alert, oriented X3 Psychiatric exam: Present: normal affect, normal mood Skin exam: Present: warm, dry, intact, normal color Course Vital Signs 12/18/19 01:55 Temperature 97.9 F Pulse Rate 86 Respiratory 20 Rate Blood Pressure 113/76 O2 Sat by Pulse 96 Oximetry Medical Decision Making - Medical Decision Making Patient 49-year-old male presenting to emergency Department with chief complaint of sore throat and congestion. Physical examination is unremarkable. Rapid strep is negative. Chest x-ray is unremarkable. Patient is homeless and is looking to stay somewhere. Patient will be discharged. I counseled the patient for smoking cessation for greater than 3 minutes. Case discussed with physician. Return parameters thoroughly discussed the patient was understanding and agreeable. - Lab Data Lab Results 12/18/19 Range/Units 02:00 Group A Strep Rapid Negative (Negative) Disposition Clinical Impression: Sore throat, Cough Disposition: HOME SELF-CARE Condition: Stable Instructions (If sedation given, give patient instructions): Chronic Cough (ED) Additional Instructions: Avoid smoking. Return to emergency department if symptoms worsen. Is patient prescribed a controlled substance at d/c from ED?: No Referrals: Flash Schofield MD [Primary Care Provider] - 1-2 days Time of Disposition: 03:43
[2019-12-18 04:27] VITALS: BP 110/71; PULSE 83; RESP 18
== END 2019-12-18 04:26 | disposition home or self-care (01) ==
LOC: EC 01:44
DX: J02.9 Acute pharyngitis, unspecified (principal); R05 Cough; R09.89 Other specified symptoms and signs involving the circulatory and respiratory systems; Z71.6 Tobacco abuse counseling; F17.200 Nicotine dependence, unspecified, uncomplicated; Z59.0 Homelessness; Z91.013 Allergy to seafood; Z91.018 Allergy to other foods; Z91.038 Other insect allergy status; Z87.09 Personal history of other diseases of the respiratory system; Z82.5 Family history of asthma and other chronic lower respiratory diseases
CPT/HCPCS: 71046; 87081; 87430; 99283; 99406

== ENCOUNTER 2019-12-22 02:23 | Emergency (ER) | payer OTHER ==
[2019-12-22 02:35] VITALS: TEMP 97.9
[2019-12-22] MEDS ORDERED: guaiFENesin-DM 600/30MG 1 EACH TAB.ER.12H PO STA (02:54)
[2019-12-22] MEDS ORDERED: IBUPROFEN 600 MG TAB PO STA (02:54)
--- NOTE | 2019-12-22 03:08 | XR ---
EXAMINATION TYPE: XR chest 2V DATE OF EXAM: 12/22/2019 COMPARISON: 12/18/2019 HISTORY: Cough TECHNIQUE: FINDINGS: Heart is normal. Lungs are clear. Diaphragm is normal. There is no heart failure. There are no hilar masses. Bony thorax is intact. There is old ununited right clavicle fracture. IMPRESSION: No active cardiopulmonary disease. Normal heart. No change.
--- NOTE | 2019-12-22 03:43 | ED ---
URI HPI - General Chief Complaint: Upper Respiratory Infection Stated Complaint: SOB Time Seen by Provider: 12/22/19 02:46 Source: patient Mode of arrival: ambulatory Limitations: no limitations - History of Present Illness Initial Comments: 49-year-old male patient presents to the emergency department today for evaluation of cough, nasal congestion, nasal drainage. Patient states that symptoms started 2-3 days ago. Patient denies any fever or chills. Denies shortness of breath. Patient states when he coughs he has pain across his chest. Denies any sputum production or hemoptysis. Denies any sore throat. Denies ear pain. Patient denies taking any medication for his symptoms. He does admit to smoking cigarettes. Patient denies any recent rash, abdominal pain, nausea, vomiting, diarrhea, constipation, back pain, numbness, tingling, dizziness, weakness, hematuria, dysuria, urinary urgency, urinary frequency, headache, visual changes, or any other complaints. - Related Data Previous Rx's Medication Instructions Recorded Escitalopram [Lexapro] 10 mg PO DAILY 28 Days tab 11/21/19 Melatonin 6 mg PO HS 28 Days tablet 11/21/19 Nicotine 14Mg/24Hr Patch [Habitrol] 1 patch TRANSDERM DAILY 14 Days 11/21/19 patch guaiFENesin-DM 600/30MG [Mucinex 1 each PO Q12HR #10 tab.er.12h 12/22/19 Dm] Allergies Allergy/AdvReac Type Severity Reaction Status Date / Time horseradish Allergy Anaphylaxis Verified 12/22/19 02:35 shellfish derived [Shellfish] Allergy Anaphylaxis Verified 12/22/19 02:35 venom-wasp Allergy Anaphylaxis Verified 12/22/19 02:35 Review of Systems ROS Statement: Those systems with pertinent positive or pertinent negative responses have been documented in the HPI. ROS Other: All systems not noted in ROS Statement are negative. 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 Past Anesthesia/Blood Transfusion Reactions: Unable to Obtain Additional Past Anesthesia/Blood Transfusion Reaction / Comment(s): Pt has never had general/spinal anesthesia Past Psychological History: Anxiety, Bipolar, Depression, Schizoaffective Disorder, Schizophrenia Smoking Status: Current every day smoker Past Alcohol Use History: None Reported Past Drug Use History: Marijuana - Past Family History Mother Family Medical History: CVA/TIA, Diabetes Mellitus, Myocardial Infarction ([place]) Father Additional Family Medical History / Comment(s): Emphesema General Exam Limitations: no limitations General appearance: alert, in no apparent distress, other (This is a well- developed, well-nourished adult male patient in no acute distress. Vital signs upon presentation are temperature 97.9F, pulse 92, respirations 20, blood pressure 127/79, pulse ox 98% on room air.) Eye exam: Present: normal appearance, PERRL, EOMI. Absent: scleral icterus, conjunctival injection, periorbital swelling ENT exam: Present: normal exam, normal oropharynx, mucous membranes moist Respiratory exam: Present: normal lung sounds bilaterally. Absent: respiratory distress, wheezes, rales, rhonchi, stridor Cardiovascular Exam: Present: regular rate, normal rhythm, normal heart sounds. Absent: systolic murmur, diastolic murmur, rubs, gallop, clicks GI/Abdominal exam: Present: soft, normal bowel sounds. Absent: distended, tenderness, guarding, rebound, rigid Neurological exam: Present: alert, oriented X3, CN II-XII intact Psychiatric exam: Present: normal affect, normal mood Skin exam: Present: warm, dry, intact, normal color. Absent: rash Course Vital Signs 12/22/19 02:33 Temperature 97.9 F Pulse Rate 92 Respiratory 20 Rate Blood Pressure 127/79 O2 Sat by Pulse 98 Oximetry Medical Decision Making - Medical Decision Making 49-year-old male patient presents to the emergency department today for evaluation of cough, congestion. Physical examination reveals clear equal lung sounds. Mild pharyngeal erythema. No evidence for otitis media. Chest x-ray was negative. Influenza test was negative. I did discuss findings and results with the patient. His symptoms are most consistent with viral upper respiratory infection. He'll be given a prescription for Mucinex. Instructed to increase fluids, take Tylenol Motrin for discomfort. Instructed to follow-up with his primary care physician for recheck in 1-2 days. Return parameters were discussed in detail. He verbalizes understanding and agrees with this plan. - Lab Data Lab Results 12/22/19 Range/Units 02:59 Influenza Type A RNA Not Detected (Not Detectd) Influenza Type B (PCR) Not Detected (Not Detectd) - Radiology Data Radiology results: report reviewed, image reviewed Two-view x-ray of the chest is obtained. Report was reviewed in its entirety. Impression by Dr. Faria shows no active cardiopulmonary disease. Normal heart. No change. Disposition Clinical Impression: Viral upper respiratory infection Disposition: HOME SELF-CARE Condition: Good Instructions (If sedation given, give patient instructions): Upper Respiratory Infection (ED) Additional Instructions: Take medications as directed. Increase fluids. Rest. Follow-up through primary care physician for recheck in 1-2 days. Return to the emergency department immediately for any new, worsening, or concerning symptoms. Prescriptions: guaiFENesin-DM 600/30MG [Mucinex Dm] 1 each PO Q12HR #10 tab.er.12h Is patient prescribed a controlled substance at d/c from ED?: No Referrals: Flash Schofield MD [Primary Care Provider] - 1-2 days Time of Disposition: 03:43
[2019-12-22 04:07] VITALS: BP 113/82; PULSE 90; RESP 18
== END 2019-12-22 04:07 | disposition home or self-care (01) ==
LOC: EC 02:23
DX: J06.9 Acute upper respiratory infection, unspecified (principal); I25.2 Old myocardial infarction; F17.210 Nicotine dependence, cigarettes, uncomplicated; Z91.013 Allergy to seafood; Z91.030 Bee allergy status; Z91.018 Allergy to other foods; Z86.73 Personal history of transient ischemic attack (TIA), and cerebral infarction without residual deficits
CPT/HCPCS: 71046; 87502; 99285

== ENCOUNTER 2019-12-27 23:31 | Emergency (ER) | payer OTHER ==
[2019-12-28] MEDS ORDERED: PENICILLIN VK 500MG STARTER 4 TAB BTL PO STA (00:54)
--- NOTE | 2019-12-28 00:55 | ED ---
ENT HPI - General Chief complaint: Dental/Oral Stated complaint: Abscess tooth Time Seen by Provider: 12/27/19 23:41 Source: patient Mode of arrival: ambulatory Limitations: no limitations - History of Present Illness Initial comments: Deangelo is a 49-year-old male very well-known to the emergency department for a frequent visits. Patient presents the ER today reporting 1 week of left lower jaw pain. Patient has a history of very poor dentition and recurrent dental infections. Patient doesn't believe is been on antibiotics in approximately year. Patient denies any oral swelling difficulty speaking swallowing. Denies any neck pain. - Related Data Previous Rx's Medication Instructions Recorded Escitalopram [Lexapro] 10 mg PO DAILY 28 Days tab 11/21/19 Melatonin 6 mg PO HS 28 Days tablet 11/21/19 Nicotine 14Mg/24Hr Patch [Habitrol] 1 patch TRANSDERM DAILY 14 Days 11/21/19 patch guaiFENesin-DM 600/30MG [Mucinex 1 each PO Q12HR #10 tab.er.12h 12/22/19 Dm] Penicillin V Potassium [Pen Vee K] 500 mg PO Q6H #28 tablet 12/28/19 Allergies Allergy/AdvReac Type Severity Reaction Status Date / Time horseradish Allergy Anaphylaxis Verified 12/27/19 23:35 shellfish derived [Shellfish] Allergy Anaphylaxis Verified 12/27/19 23:35 venom-wasp Allergy Anaphylaxis Verified 12/27/19 23:35 Review of Systems ROS Statement: Those systems with pertinent positive or pertinent negative responses have been documented in the HPI. ROS Other: All systems not noted in ROS Statement are negative. 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 Past Anesthesia/Blood Transfusion Reactions: Unable to Obtain Additional Past Anesthesia/Blood Transfusion Reaction / Comment(s): Pt has never had general/spinal anesthesia Past Psychological History: Anxiety, Bipolar, Depression, Schizoaffective Disorder, Schizophrenia Smoking Status: Current every day smoker Past Alcohol Use History: None Reported Past Drug Use History: None Reported - Past Family History Mother Family Medical History: CVA/TIA, Diabetes Mellitus, Myocardial Infarction ([place]) Father Additional Family Medical History / Comment(s): Emphesema General Exam - General Exam Comments Initial Comments: Physical Exam GENERAL: Patient is well-developed and well-nourished. Patient is nontoxic and well-hydrated and is in no distress. HENT: Normocephalic, Atraumatic. Poor dentition with multiple dental caries and broken teeth Tooth #19 surgically absent tooth #18 is broken and appears to be infected EYES: PERRL, EOMI PULMONARY: Unlabored respirations. CARDIOVASCULAR: RRR Warm and well perfused extremities ABDOMEN: Non-distended SKIN: No rashes or bruising : Deferred NEUROLOGIC: Alert and oriented Normal speech Normal gait MUSCULOSKELETAL: Moving all extremities with no apparent injury PSYCHIATRIC: No SI/HI Limitations: no limitations Course Vital Signs 12/27/19 23:34 Temperature 97.4 F L Pulse Rate 90 Respiratory 16 Rate Blood Pressure 106/71 O2 Sat by Pulse 98 Oximetry Medical Decision Making - Medical Decision Making Patient was seen and evaluated history was obtained from the patient 49-year-old male with very poor dentition multiple broken teeth dental caries appears to have a dental infection with no obvious abscess amenable to draining, no signs of Omar angina Patient will be started on penicillin here in the ER and given a prescription for such. Patient was given instructions of follow-up with the dental clinic Patient's pertaining care were answered return parameters discussed patient discharged home in stable condition Disposition Clinical Impression: Dental caries, Dental infection Disposition: HOME SELF-CARE Condition: Stable Instructions (If sedation given, give patient instructions): Dental Abscess (ED) Additional Instructions: Please follow up with the [facility] dental clinic. [facility] [place] [address]. Phone number for new patients or [phone] for existing patients. [employer] [facility]. Must pay for x-rays then services are free. Call for an appoitnment. Prescriptions: Penicillin V Potassium [Pen Vee K] 500 mg PO Q6H #28 tablet Is patient prescribed a controlled substance at d/c from ED?: No Referrals: Flash Schofield MD [Primary Care Provider] - 1-2 days
[2019-12-28 01:04] VITALS: BP 110/76; PULSE 88; RESP 20; TEMP 97.6
== END 2019-12-28 01:09 | disposition home or self-care (01) ==
LOC: EC 23:31
DX: K04.7 Periapical abscess without sinus (principal); K02.9 Dental caries, unspecified; S02.5XXA Fracture of tooth (traumatic), initial encounter for closed fracture; K08.409 Partial loss of teeth, unspecified cause, unspecified class; F17.200 Nicotine dependence, unspecified, uncomplicated; Z91.013 Allergy to seafood; Z91.018 Allergy to other foods; Z91.038 Other insect allergy status; X58.XXXA Exposure to other specified factors, initial encounter
CPT/HCPCS: 99282

== ENCOUNTER 2019-12-30 23:41 | Emergency (ER) | payer OTHER ==
[2019-12-30 23:51] VITALS: TEMP 99.9
[2019-12-31] MEDS ORDERED: SODIUM CHLORIDE 0.9% 1,000 ML IV STA (00:08)
--- NOTE | 2019-12-31 00:17 | ED ---
General Adult HPI - General Chief complaint: Abdominal Pain Stated complaint: Back/Abd Pain Time Seen by Provider: 12/30/19 23:53 Source: patient, RN notes reviewed, old records reviewed Mode of arrival: ambulatory Limitations: no limitations - History of Present Illness Initial comments: 49-year-old male presented for evaluation of abdominal pain. Patient had an episode of left-sided squeezing abdominal pain approximately one hour prior to arrival. States this was in his left flank and mid abdomen. He states pain is completely resolved at this time. He denies any persistent pain. He states he had a normal bowel movement today. No diarrhea. No constipation. He had no vomiting. There is no nausea associated with this symptom. No chest pain or dyspnea. No fever or chills. He denies dysuria or hematuria. He is completely asymptomatic at the time my evaluation. - Related Data Previous Rx's Medication Instructions Recorded Escitalopram [Lexapro] 10 mg PO DAILY 28 Days tab 11/21/19 Melatonin 6 mg PO HS 28 Days tablet 11/21/19 Nicotine 14Mg/24Hr Patch [Habitrol] 1 patch TRANSDERM DAILY 14 Days 11/21/19 patch guaiFENesin-DM 600/30MG [Mucinex 1 each PO Q12HR #10 tab.er.12h 12/22/19 Dm] Penicillin V Potassium [Pen Vee K] 500 mg PO Q6H #28 tablet 12/28/19 Allergies Allergy/AdvReac Type Severity Reaction Status Date / Time horseradish Allergy Anaphylaxis Verified 12/30/19 23:47 shellfish derived [Shellfish] Allergy Anaphylaxis Verified 12/30/19 23:47 venom-wasp Allergy Anaphylaxis Verified 12/30/19 23:47 Review of Systems ROS Statement: Those systems with pertinent positive or pertinent negative responses have been documented in the HPI. ROS Other: All systems not noted in ROS Statement are negative. 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 Past Anesthesia/Blood Transfusion Reactions: Unable to Obtain Additional Past Anesthesia/Blood Transfusion Reaction / Comment(s): Pt has never had general/spinal anesthesia Past Psychological History: Anxiety, Bipolar, Depression, Schizoaffective Disord er, Schizophrenia Smoking Status: Current every day smoker Past Alcohol Use History: None Reported Past Drug Use History: None Reported - Past Family History Mother Family Medical History: CVA/TIA, Diabetes Mellitus, Myocardial Infarction ([place]) Father Additional Family Medical History / Comment(s): Emphesema General Exam Limitations: no limitations General appearance: alert, in no apparent distress Head exam: Present: atraumatic, normocephalic Eye exam: Present: normal appearance, PERRL ENT exam: Present: normal exam Neck exam: Present: normal inspection. Absent: tenderness, meningismus Respiratory exam: Present: normal lung sounds bilaterally. Absent: respiratory distress, wheezes Cardiovascular Exam: Present: regular rate, normal rhythm GI/Abdominal exam: Present: soft. Absent: distended, tenderness, guarding, rebound, hernia Extremities exam: Present: normal inspection, normal capillary refill. Absent: pedal edema Neurological exam: Present: alert, oriented X3, CN II-XII intact. Absent: motor sensory deficit Psychiatric exam: Present: normal affect, normal mood Skin exam: Present: warm, dry, intact. Absent: cyanosis, diaphoretic Course Vital Signs 12/30/19 12/31/19 23:47 00:41 Temperature 99.9 F H Pulse Rate 115 H 81 Respiratory 18 20 Rate Blood Pressure 107/70 117/79 O2 Sat by Pulse 96 95 Oximetry Medical Decision Making - Medical Decision Making 49-year-old male with episode of abdominal pain and flank pain. Pain resolved. Abdomen is soft nontender nondistended. Patient has normal CBC, no leukocytosis, stable hemoglobin. He has normal CMP, negative lactic acid, urinalysis negative for significant hematuria or signs of infection. Patient feeling well, no further pain. Will be discharged with close outpatient follow- up, return parameters discussed, will follow with primary care physician. - Lab Data Result diagrams: 12/31/19 00:17 12/31/19 00:17 Lab Results 12/31/19 12/31/19 12/31/19 Range/Units 00: 00:17 00:17 WBC 9.5 (3.8-10.6) k/uL RBC 4.86 (4.30-5.90) m/uL Hgb 13.8 (13.0-17.5) gm/dL Hct 42.7 (39.0-53.0) % MCV 87.7 (80.0-100.0) fL MCH 28.4 (25.0-35.0) pg MCHC 32.4 (31.0-37.0) g/dL RDW 13.4 (11.5-15.5) % Plt Count 368 (150-450) k/uL Neutrophils % 69 % Lymphocytes % 18 % Monocytes % 9 % Eosinophils % 1 % Basophils % 1 % Neutrophils # 6.5 (1.3-7.7) k/uL Lymphocytes # 1.7 (1.0-4.8) k/uL Monocytes # 0.8 (0-1.0) k/uL Eosinophils # 0.1 (0-0.7) k/uL Basophils # 0.1 (0-0.2) k/uL Sodium 131 L (137-145) mmol/L Potassium 4.1 (3.5-5.1) mmol/L Chloride 98 (98-107) mmol/L Carbon Dioxide 26 (22-30) mmol/L Anion Gap 7 mmol/L BUN 16 (9-20) mg/dL Creatinine 0.93 (0.66-1.25) mg/dL Est GFR (CKD-EPI)AfAm >90 (>60 ml/min/1.73 sqM) Est GFR (CKD-EPI)NonAf >90 (>60 ml/min/1.73 sqM) Glucose 92 (74-99) mg/dL Plasma Lactic Acid Jluis (0.7-2.0) mmol/L Calcium 9.1 (8.4-10.2) mg/dL Total Bilirubin 0.5 (0.2-1.3) mg/dL AST 25 (17-59) U/L ALT 11 (4-49) U/L Alkaline Phosphatase 124 (38-126) U/L Total Protein 7.1 (6.3-8.2) g/dL Albumin 4.3 (3.5-5.0) g/dL Urine Color Yellow Urine Appearance Cloudy (Clear) Urine pH 5.5 (5.0-8.0) Ur Specific [place] 1.038 H (1.001-1.035) Urine Protein 1+ H (Negative) Urine Glucose (UA) Negative (Negative) Urine Ketones Trace H (Negative) Urine Blood Negative (Negative) Urine Nitrite Negative (Negative) Urine Bilirubin Negative (Negative) Urine Urobilinogen 6.0 (<2.0) mg/dL Ur Leukocyte Esterase Trace H (Negative) Urine RBC 3 (0-5) /hpf Urine WBC 4 (0-5) /hpf Ur Squamous Epith Cells 1 (0-4) /hpf Hyaline Casts 9 H (0-2) /lpf Urine Mucus Many H (None) /hpf 12/31/19 Range/Units 00:17 WBC (3.8-10.6) k/uL RBC (4.30-5.90) m/uL Hgb (13.0-17.5) gm/dL Hct (39.0-53.0) % MCV (80.0-100.0) fL MCH (25.0-35.0) pg MCHC (31.0-37.0) g/dL RDW (11.5-15.5) % Plt Count (150-450) k/uL Neutrophils % % Lymphocytes % % Monocytes % % Eosinophils % % Basophils % % Neutrophils # (1.3-7.7) k/uL Lymphocytes # (1.0-4.8) k/uL Monocytes # (0-1.0) k/uL Eosinophils # (0-0.7) k/uL Basophils # (0-0.2) k/uL Sodium (137-145) mmol/L Potassium (3.5-5.1) mmol/L Chloride (98-107) mmol/L Carbon Dioxide (22-30) mmol/L Anion Gap mmol/L BUN (9-20) mg/dL Creatinine (0.66-1.25) mg/dL Est GFR (CKD-EPI)AfAm (>60 ml/min/1.73 sqM) Est GFR (CKD-EPI)NonAf (>60 ml/min/1.73 sqM) Glucose (74-99) mg/dL Plasma Lactic Acid Jluis 0.8 (0.7-2.0) mmol/L Calcium (8.4-10.2) mg/dL Total Bilirubin (0.2-1.3) mg/dL AST (17-59) U/L ALT (4-49) U/L Alkaline Phosphatase (38-126) U/L Total Protein (6.3-8.2) g/dL Albumin (3.5-5.0) g/dL Urine Color Urine Appearance (Clear) Urine pH (5.0-8.0) Ur Specific [place] (1.001-1.035) Urine Protein (Negative) Urine Glucose (UA) (Negative) Urine Ketones (Negative) Urine Blood (Negative) Urine Nitrite (Negative) Urine Bilirubin (Negative) Urine Urobilinogen (<2.0) mg/dL Ur Leukocyte Esterase (Negative) Urine RBC (0-5) /hpf Urine WBC (0-5) /hpf Ur Squamous Epith Cells (0-4) /hpf Hyaline Casts (0-2) /lpf Urine Mucus (None) /hpf Disposition Clinical Impression: Abdominal pain Disposition: HOME SELF-CARE Condition: Fair Instructions (If sedation given, give patient instructions): Abdominal Pain (ED) Is patient prescribed a controlled substance at d/c from ED?: No Referrals: Flash Schofield MD [Primary Care Provider] - 1-2 days Time of Disposition: 00:55
[2019-12-31 00:29] LABS: Appearance,Urine Cloudy (Clear); Bilirubin,Urine Negative (Negative); Blood,Urine Negative (Negative); Color,Urine Yellow; Glucose,Urine (UA) Negative (Negative); Hyaline Casts,Urine 9 /lpf (0-2); Ketones,Urine Trace (Negative); Leukocyte Esterase,Urine Trace (Negative); Mucus,Urine Many /hpf; Nitrite,Urine Negative (Negative); PH, Urine 5.5 (5.0-8.0); Protein,Urine 1+ (Negative); RBC,Urine 3 /hpf (0-5); Specific Gravity,Urine 1.038 (1.001-1.035); Squamous Epithelial Cell,Urine 1 /hpf (0-4); WBC,Urine 4 /hpf (0-5)
--- NOTE | 2019-12-31 00:30 | XR ---
EXAMINATION TYPE: XR KUB DATE OF EXAM: 12/31/2019 COMPARISON: NONE HISTORY: Left sided pain TECHNIQUE: FINDINGS: Single view upright shows no evidence of intestinal obstruction or pneumoperitoneum. Fecal pattern is normal. There is no evidence of a mass. There are no pathologic calcifications over the ki dneys. Lung bases are clear. IMPRESSION: Nonacute abdomen.
[2019-12-31 00:34] LABS: Basophils # (A) 0.1 k/uL (0-0.2); Basophils % (A) 1 %; Eosinophils # (A) 0.1 k/uL (0-0.7); Eosinophils % (A) 1 %; HCT 42.7 % (39.0-53.0); HGB 13.8 gm/dL (13.0-17.5); Lymphocytes # (A) 1.7 k/uL (1.0-4.8); Lymphocytes % (A) 18 %; MCH 28.4 pg (25.0-35.0); MCHC 32.4 g/dL (31.0-37.0); MCV 87.7 fL (80.0-100.0); Mean Platelet Volume 6.7; Monocytes # (A) 0.8 k/uL (0-1.0); Monocytes % (A) 9 %; Neutrophils # (A) 6.5 k/uL (1.3-7.7); Neutrophils % (A) 69 %; Platelet Count 368 k/uL (150-450); RBC 4.86 m/uL (4.30-5.90); RDW 13.4 % (11.5-15.5); WBC 9.5 k/uL (3.8-10.6)
[2019-12-31 00:43] VITALS: BP 117/79; PULSE 81; RESP 20
[2019-12-31 00:54] LABS: ALT 11 U/L (4-49); AST 25 U/L (17-59); African American GFR (CKD) >90 (>60 ml/min/1.73 sqM); Albumin 4.3 g/dL (3.5-5.0); Alkaline Phosphatase 124 U/L (38-126); Anion Gap 7 mmol/L; Blood Urea Nitrogen 16 mg/dL (9-20); Calcium 9.1 mg/dL (8.4-10.2); Carbon Dioxide 26 mmol/L (22-30); Chloride 98 mmol/L (98-107); Glucose 92 mg/dL (74-99); Non-African American GFR(CKD) >90 (>60 ml/min/1.73 sqM); Potassium 4.1 mmol/L (3.5-5.1); Sodium 131 mmol/L (137-145); Total Bilirubin 0.5 mg/dL (0.2-1.3); Total Protein 7.1 g/dL (6.3-8.2)
== END 2019-12-31 01:17 | disposition home or self-care (01) ==
LOC: EC 23:41
DX: R10.9 Unspecified abdominal pain (principal); I25.2 Old myocardial infarction; F17.200 Nicotine dependence, unspecified, uncomplicated; Z91.018 Allergy to other foods; Z91.013 Allergy to seafood; Z91.030 Bee allergy status; Z86.73 Personal history of transient ischemic attack (TIA), and cerebral infarction without residual deficits
CPT/HCPCS: 36415; 74018; 80053; 81001; 83605; 85025; 96360; 99284

== ENCOUNTER 2020-01-15 01:25 | Observation (INO) | payer OTHER ==
[2020-01-15] MEDS ORDERED: ALBUTEROL NEBULIZED 2.5 MG/3 ML INHALATION STA (01:36)
--- NOTE | 2020-01-15 01:43 | ED ---
General Adult HPI - General Chief complaint: Shortness of Breath Stated complaint: cough,SOB Time Seen by Provider: 01/15/20 01:28 Source: patient, EMS Mode of arrival: EMS Limitations: no limitations - History of Present Illness Initial comments: This patient is a 49-year-old man who presents to be evaluated for coughing. The patient states this is been going on for a couple weeks, since he had been seen here for a dental abscess. Patient states that the cough is largely nonproductive. He has not had a noted fever or chills. He is not having chest pain or dyspnea. In addition, patient denies any recent travel. He has not had known coronavirus exposure Onset/Timin -: week(s) Improves with: none Worsens with: none Associated Symptoms: cough Treatments Prior to Arrival: none - Related Data Previous Rx's Medication Instructions Recorded Escitalopram [Lexapro] 10 mg PO DAILY 28 Days tab 11/21/19 Melatonin 6 mg PO HS 28 Days tablet 11/21/19 Nicotine 14Mg/24Hr Patch [Habitrol] 1 patch TRANSDERM DAILY 14 Days 11/21/19 patch guaiFENesin-DM 600/30MG [Mucinex 1 each PO Q12HR #10 tab.er.12h 12/22/19 Dm] Penicillin V Potassium [Pen Vee K] 500 mg PO Q6H #28 tablet 12/28/19 Allergies Allergy/AdvReac Type Severity Reaction Status Date / Time horseradish Allergy Anaphylaxis Verified 12/30/19 23:47 shellfish derived [Shellfish] Allergy Anaphylaxis Verified 12/30/19 23:47 venom-wasp Allergy Anaphylaxis Verified 12/30/19 23:47 Review of Systems ROS Statement: Those systems with pertinent positive or pertinent negative responses have been documented in the HPI. ROS Other: All systems not noted in ROS Statement are negative. Constitutional: Denies: fever, chills, weakness Eyes: Denies: eye discharge ENT: Denies: throat pain, congestion Respiratory: Reports: cough. Denies: dyspnea, hemoptysis Cardiovascular: Denies: chest pain, palpitations Gastrointestinal: Denies: abdominal pain, vomiting Musculoskeletal: Denies: back pain Skin: Denies: rash Neurological: Denies: headache Past Medical History Past Medical History: Asthma, COPD, CVA/TIA Additional Past Medical History / Comment(s): CVA 03/2013 with seizure/no resi duals, cerebral aneurysm stable, migraines, Last Myocardial Infarction Date:: History of Any Multi-Drug Resistant Organisms: None Reported Past Surgical History: Heart Catheterization Additional Past Surgical History / Comment(s): pt state no heart cath- previous health documentation shows he has had one. Past Anesthesia/Blood Transfusion Reactions: Unable to Obtain Additional Past Anesthesia/Blood Transfusion Reaction / Comment(s): Pt has never had general/spinal anesthesia Past Psychological History: Anxiety, Bipolar, Depression, Schizoaffective Disorder, Schizophrenia Smoking Status: Current every day smoker Past Alcohol Use History: None Reported Past Drug Use History: Marijuana - Past Family History Mother Family Medical History: CVA/TIA, Diabetes Mellitus, Myocardial Infarction ([place]) Father Additional Family Medical History / Comment(s): Emphesema General Exam Limitations: no limitations General appearance: alert, in no apparent distress Head exam: Present: atraumatic, normocephalic Eye exam: Present: normal appearance. Absent: scleral icterus, conjunctival injection ENT exam: Present: normal oropharynx Respiratory exam: Present: wheezes. Absent: respiratory distress, rales, rhonchi, stridor, accessory muscle use, decreased breath sounds Cardiovascular Exam: Present: regular rate, normal rhythm, normal heart sounds. Absent: systolic murmur, diastolic murmur, rubs, gallop GI/Abdominal exam: Present: soft. Absent: distended, tenderness, guarding, rebound Extremities exam: Present: normal inspection, normal capillary refill. Absent: pedal edema, calf tenderness Back exam: Present: normal inspection. Absent: CVA tenderness (R), CVA tenderness (L) Neurological exam: Present: alert Skin exam: Present: warm, dry, intact, normal color. Absent: rash Course Vital Signs 01/15/20 01/15/20 01/15/20 01:27 02:00 02:11 Temperature 97.5 F L Pulse Rate 88 84 80 Respiratory 20 17 Rate Blood Pressure 108/71 108/71 O2 Sat by Pulse 99 99 Oximetry 01/15/20 02:40 Temperature Pulse Rate 95 Respiratory 17 Rate Blood Pressure 104/65 O2 Sat by Pulse 98 Oximetry Medical Decision Making - Lab Data Lab Results 01/15/20 Range/Units 01:29 Influenza Type A RNA Not Detected (Not Detectd) Influenza Type B (PCR) Not Detected (Not Detectd) Disposition Clinical Impression: Pneumonia, COPD exacerbation Disposition: ADMITTED IP TO THIS HOSP Condition: Fair Is patient prescribed a controlled substance at d/c from ED?: No Referrals: Flash Schofield MD [Primary Care Provider] - 1-2 days
--- NOTE | 2020-01-15 01:57 | XR ---
EXAMINATION TYPE: XR chest 2V DATE OF EXAM: 01/15/2020 COMPARISON: 12/22/2019 HISTORY: Cough TECHNIQUE: FINDINGS: Heart is normal. There is some increased interstitial density in the right midlung. There i s no heart failure. There are no hilar masses. Mediastinum is normal. There is no pleural effusion. B cassidy thorax appears intact IMPRESSION: There is mild increased interstitial density in the right midlung compared to old exam an d consistent with mild pneumonia. Normal heart.
[2020-01-15] MEDS ORDERED: AZITHROMYCIN 500 MG TAB PO STA (02:49)
[2020-01-15] MEDS ORDERED: cefTRIAXone 1,000 MG VIAL (IM USE) IM STA (02:49)
[2020-01-15] MEDS ORDERED: ALBUTEROL NEBULIZED 2.5 MG/3 ML INHALATION PRN (03:31)
[2020-01-15] MEDS ORDERED: PNEUMONIA PROTOCOL UTILIZED 1 EACH MISC PO PRN (03:31)
[2020-01-15] MEDS: SODIUM CHLORIDE 0.9% 1,000 ML IV SCH (04:33)
[2020-01-15 07:03] LABS: Basophils # (A) 0.1 k/uL (0-0.2); Basophils % (A) 1 %; Eosinophils # (A) 0.3 k/uL (0-0.7); Eosinophils % (A) 2 %; HGB 11.7 gm/dL (13.0-17.5); Lymphocytes # (A) 2.5 k/uL (1.0-4.8); Lymphocytes % (A) 19 %; MCH 28.2 pg (25.0-35.0); MCHC 31.6 g/dL (31.0-37.0); MCV 89.4 fL (80.0-100.0); Mean Platelet Volume 6.9; Monocytes # (A) 0.7 k/uL (0-1.0); Monocytes % (A) 5 %; Neutrophils # (A) 9.5 k/uL (1.3-7.7); Neutrophils % (A) 72 %; Platelet Count 444 k/uL (150-450); RBC 4.14 m/uL (4.30-5.90); RDW 13.3 % (11.5-15.5); WBC 13.2 k/uL (3.8-10.6)
[2020-01-15] MEDS: IPRATROPIUM-ALBUTEROL 3 ML NEB INHALATION SCH ×4 (07:22→20:06)
[2020-01-15] MEDS: ESCITALOPRAM 10 MG TAB PO SCH (08:17)
[2020-01-15] MEDS: guaiFENesin-DM 600/30MG 1 EACH TAB.ER.12H PO SCH ×2 (08:18→20:19)
[2020-01-15 11:21] VITALS: BMI 16.3
[2020-01-15] MEDS ORDERED: MELATONIN 3 MG TABLET PO SCH (21:00)
[2020-01-16 04:57] VITALS: RESP 16
[2020-01-16] MEDS: SODIUM CHLORIDE 0.9% 1,000 ML IV SCH (05:02)
[2020-01-16] MEDS ORDERED: AZITHROMYCIN 500 MG TAB PO SCH (06:00)
[2020-01-16] MEDS: IPRATROPIUM-ALBUTEROL 3 ML NEB INHALATION SCH ×2 (07:39→11:19)
[2020-01-16] MEDS: ESCITALOPRAM 10 MG TAB PO SCH (07:59)
[2020-01-16] MEDS: guaiFENesin-DM 600/30MG 1 EACH TAB.ER.12H PO SCH (08:00)
[2020-01-16] MEDS ORDERED: CEFDINIR 300 MG CAP PO SCH (09:00)
[2020-01-16 11:06] LABS: Basophils # (A) 0.1 k/uL (0-0.2); Basophils % (A) 1 %; Eosinophils # (A) 0.3 k/uL (0-0.7); Eosinophils % (A) 3 %; HCT 37.1 % (39.0-53.0); HGB 11.8 gm/dL (13.0-17.5); Lymphocytes # (A) 1.8 k/uL (1.0-4.8); Lymphocytes % (A) 18 %; MCH 28.5 pg (25.0-35.0); MCHC 31.8 g/dL (31.0-37.0); MCV 89.5 fL (80.0-100.0); Mean Platelet Volume 6.8; Monocytes # (A) 0.6 k/uL (0-1.0); Monocytes % (A) 5 %; Neutrophils # (A) 7.3 k/uL (1.3-7.7); Neutrophils % (A) 71 %; Platelet Count 485 k/uL (150-450); RBC 4.14 m/uL (4.30-5.90); RDW 13.3 % (11.5-15.5); WBC 10.3 k/uL (3.8-10.6)
--- NOTE | 2020-01-16 11:09 | XR ---
EXAMINATION TYPE: XR chest 2V DATE OF EXAM: 01/16/2020 COMPARISON: 01/16/2020 HISTORY: Pneumonitis. Shortness of breath. TECHNIQUE: Frontal and lateral views of the chest are obtained. FINDINGS: Pulmonary hyperinflation is seen indicative of underlying COPD. Diffuse interstitial promin ence appears chronic. Right middle lobe reticular opacity is similar to the prior. The cardiac silh ouette size is within normal limits. Diffuse osseous demineralization is seen. IMPRESSION: Right middle lobe opacity is similar to the prior of 01/15/2020, again likely unifocal pn eumonia.
[2020-01-16 11:22] LABS: ALT 13 U/L (4-49); AST 26 U/L (17-59); African American GFR (CKD) >90 (>60 ml/min/1.73 sqM); Albumin 3.6 g/dL (3.5-5.0); Alkaline Phosphatase 95 U/L (38-126); Anion Gap 5 mmol/L; Blood Urea Nitrogen 18 mg/dL (9-20); Calcium 9.3 mg/dL (8.4-10.2); Carbon Dioxide 28 mmol/L (22-30); Chloride 103 mmol/L (98-107); Glucose 93 mg/dL (74-99); Non-African American GFR(CKD) >90 (>60 ml/min/1.73 sqM); Potassium 4.9 mmol/L (3.5-5.1); Sodium 136 mmol/L (137-145); Total Bilirubin 0.2 mg/dL (0.2-1.3); Total Protein 6.2 g/dL (6.3-8.2)
[2020-01-16 13:23] VITALS: BP 114/61; PULSE 66; TEMP 97.7
--- NOTE | 2020-01-16 14:29 | HP ---
HISTORY AND PHYSICAL CHIEF COMPLAINT: Shortness of breath and pneumonitis. HISTORY OF PRESENT ILLNESS: This is another admission for this 49-year-old homeless man. He has a history of COPD. He takes no medications. He does not come to the office. He developed a cough, fever and chills and came to emergency room and was found to have a minimal right lower lobe pneumonitis. REVIEW OF SYSTEMS: He denies any confusion, fever and chills, hemoptysis, chest pain, palpitations, orthopnea, PND, abdominal pain, nausea, vomiting, hematemesis, melena, hematochezia, jaundice, renal failure, hematuria, dysuria, nocturia, incontinence, diabetes, etc. Past medical history, family history, and personal and social histories are all otherwise unremarkable and noncontributory. He does not take any medications. PHYSICAL EXAMINATION: Blood pressure is 136/64 with a pulse of 87, respirations of 32, and temperature 99. In general, he appeared to be somewhat disheveled, asthenic and in no acute distress. Skin color is normal and skin is slightly dry. He was slightly dehydrated. Head, ears, eyes, nose, mouth, and throat were otherwise normal. Neck veins are not distended. Chest demonstrated poor breath sounds bilaterally. He had an increased AP diameter and dorsal kyphosis. There is scattered rales and rhonchi and a leathery sounding breath sounds on inspiration and expiration. Cardiac exam demonstrates sinus tachycardia and the abdomen is flat, soft, and nontender. Extremities normal. Neurologically, he is intact. IMPRESSION: 1. Bronchopneumonia. 2. Chronic obstructive pulmonary disease. 3. Homelessness. PLAN: 1. Bed rest. 2. IV fluids. 3. Antibiotics. 4. Updrafts. 5. [employer] consult. MMODL / IJN: [id number] /
--- NOTE | 2020-01-16 14:39 | DS ---
DISCHARGE SUMMARY CHIEF COMPLAINT: Pneumonitis. HISTORY OF PRESENT ILLNESS AND PHYSICAL EXAM: Details of this man's history and physical can be found in the initial workup. LABORATORY STUDIES: While he was in a hospital he had laboratory studies, details of which can be found in the laboratory section of his chart. COURSE IN THE HOSPITAL: After admission, he was placed on bedrest and started on intravenous fluids, updrafts and antibiotics. He did well. He had no further problems or shortness of breath, fever, chills, chest pain, etc. He was seen by social work program coordinator in hopes that there would be something that could be offered to him in detail. Again off the streets, but nothing was available. He has he was unable to go to any shelters because apparently he has some legal issues with the police. He was doing well it was felt he could be discharged she will go home on antibiotics and encouraged to follow up in my office in a day or 2. FINAL DIAGNOSIS: 1. Right lower lobe bronchopneumonia. 2. Chronic obstructive pulmonary disease. 3. Homelessness. OPERATIONS: None. CONSULTATIONS: [employer]. He is improved. MMODL / IJN: [id number] /
== END 2020-01-16 14:21 | disposition home or self-care (01) ==
LOC: EC 01:25 → 6NMEDSUR 03:31
PROVIDERS: ADMIT Family Medicine; ATTEND Family Medicine
DX: J44.0 Chronic obstructive pulmonary disease with (acute) lower respiratory infection (principal); J18.0 Bronchopneumonia, unspecified organism; Z59.0 Homelessness; F17.200 Nicotine dependence, unspecified, uncomplicated; F31.9 Bipolar disorder, unspecified; F25.9 Schizoaffective disorder, unspecified; F41.9 Anxiety disorder, unspecified; E86.0 Dehydration; G43.909 Migraine, unspecified, not intractable, without status migrainosus; I67.1 Cerebral aneurysm, nonruptured; Z79.899 Other long term (current) drug therapy; Z91.038 Other insect allergy status; Z91.013 Allergy to seafood; Z91.018 Allergy to other foods; Z87.19 Personal history of other diseases of the digestive system; Z86.73 Personal history of transient ischemic attack (TIA), and cerebral infarction without residual deficits; Z83.3 Family history of diabetes mellitus; Z82.49 Family history of ischemic heart disease and other diseases of the circulatory system; Z82.5 Family history of asthma and other chronic lower respiratory diseases; Z82.3 Family history of stroke
CPT/HCPCS: 96372; 99285; 94640 ×3; 94760; 80053; 85025 ×2; 87040; 87502; 71046 ×2; G0378 ×2; J0696

== ENCOUNTER 2020-01-19 00:16 | Emergency (ER) | payer OTHER ==
[2020-01-19 00:28] VITALS: BP 117/73; PULSE 64; RESP 18
[2020-01-19 00:38] VITALS: TEMP 97.7
--- NOTE | 2020-01-19 01:30 | ED ---
General Adult HPI - General Chief complaint: Psychiatric Symptoms Stated complaint: Suicidal Ideation Time Seen by Provider: 01/19/20 00:20 Source: EMS, RN notes reviewed, old records reviewed Mode of arrival: EMS Limitations: no limitations - History of Present Illness Initial comments: 49-year-old male patient presents to ED for evaluation of suicidal ideations. Patient additionally seen discharged for pneumonia. Patient reports he is currently taking his medication followed up with his primary care provider today states that symptoms are improving dramatically. He only has a mild cough remaining. Patient states that he has been having fleeting suicidal thoughts no homicidal thoughts. Denies taking any action to hurt himself. Denies any other complaints at this time. Systemic: Pt denies fatigue, fever/chills, rash. Pt denies weakness, night sweats, weight loss. Neuro: Pt denies headache, visual disturbances, syncope or pre-syncope. HEENT: Pt denies ocular discharge or irritation, otalgia, rhinorrhea, pharyngitis or notable lymphadenopathy. Cardiopulmonary: Pt denies chest pain, SOB, heart palpitations, dyspnea on exertion. Abdominal/GI: Pt denies abdominal pain, n/v/d. : Pt denies dysuria, burning w/ urination, frequency/urgency. Denies new onset urinary or bowel incontinence. MSK: Pt denies myalgia, loss of strength or function in extremities. Neuro: Pt denies new onset weakness, paresthesias. - Related Data Home Medications Medication Instructions Recorded Confirmed Albuterol Inhaler [Ventolin Hfa 1 - 2 puff INHALATION RT-Q6H PRN 01/15/20 01/15/20 Inhaler] Previous Rx's Medication Instructions Recorded Azithromycin [Zithromax] 500 mg PO Q24H #7 tab 01/16/20 Cefdinir [Omnicef] 300 mg PO BID #20 cap 01/16/20 Allergies Allergy/AdvReac Type Severity Reaction Status Date / Time horseradish Allergy Anaphylaxis Verified 01/19/20 00:24 shellfish derived [Shellfish] Allergy Anaphylaxis Verified 01/19/20 00:24 venom-wasp Allergy Anaphylaxis Verified 01/19/20 00:24 Review of Systems ROS Statement: Those systems with pertinent positive or pertinent negative responses have been documented in the HPI. ROS Other: All systems not noted in ROS Statement are negative. 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 Past Anesthesia/Blood Transfusion Reactions: Unable to Obtain Additional Past Anesthesia/Blood Transfusion Reaction / Comment(s): Pt has never had general/spinal anesthesia Past Psychological History: Anxiety, Bipolar, Depression, Schizoaffective Di sorder, Schizophrenia Smoking Status: Current every day smoker Past Alcohol Use History: None Reported Past Drug Use History: Marijuana - Past Family History Mother Family Medical History: CVA/TIA, Diabetes Mellitus, Myocardial Infarction ([place]) Father Additional Family Medical History / Comment(s): Emphesema General Exam - General Exam Comments Initial Comments: Constitutional: NAD, AOX3, Pt has pleasant affect. HEENT: NC/AT, trachea midline, neck supple, no lymphadenopathy. Posterior pharynx non erythematous, without exudates. External ears appear normal, without discharge. Mucous membranes moist. Eyes PERRLA, EOM intact. There is no scleral icterus. No pallor noted. Cardiopulmonary: RRR, no murmurs, rubs or gallops, no JVD noted. Lungs CTAB in anterior and posterior driver. No peripheral edema. Abdominal exam: Abdomen soft and non-distended. Abdomen non-tender to palpation in all 4 quadrants. Bowel sounds active in LLQ. No hepatosplenomegaly. No ecchymosis Neuro: CN II-XII grossly intact. No nuchal rigidity. No raccon eyes, no conrad sign. MSK: Full active ROM in upper and lower extremities, 5/5 stregnth. Limitations: no limitations Course Vital Signs 01/19/20 00:24 Temperature 97.7 F Pulse Rate 64 Respiratory 18 Rate Blood Pressure 117/73 O2 Sat by Pulse 99 Oximetry Medical Decision Making - Medical Decision Making 49-year-old male patient presents to ED for evaluation of suicidal ideations. Patient additionally seen discharged for pneumonia. Patient reports he is currently taking his medication followed up with his primary care provider today states that symptoms are improving dramatically. He only has a mild cough remaining. Patient states that he has been having fleeting suicidal thoughts no homicidal thoughts. Denies taking any action to hurt himself. Denies any other complaints at this time. Patient vital signs are stable, afebrile. Physical exam didn't display acute pathology. Patient was seen by emergency psychiatric services deyvi. She states to nursing that he is not suicidal however he is homeless and was wants a place to sleep tonight. This story was corroborated by patient. Safety plan was completed and patient will be allowed to sleep in the department morning. Case discussed with Dr. Smith. Disposition Clinical Impression: Depression, Homelessness Disposition: HOME SELF-CARE Condition: Stable Instructions (If sedation given, give patient instructions): Depression (ED) Additional Instructions: Follow-up with primary care provider and community mental health tomorrow. Return to ER if condition worsens in any way. Is patient prescribed a controlled substance at d/c from ED?: No Referrals: Flash Schofield MD [Primary Care Provider] - 1-2 days
== END 2020-01-19 02:15 | disposition home or self-care (01) ==
LOC: EC 00:16
DX: F31.30 Bipolar disorder, current episode depressed, mild or moderate severity, unspecified (principal); Z59.0 Homelessness; J18.9 Pneumonia, unspecified organism; R45.851 Suicidal ideations; J44.9 Chronic obstructive pulmonary disease, unspecified; F17.200 Nicotine dependence, unspecified, uncomplicated; Z91.013 Allergy to seafood; Z91.018 Allergy to other foods; Z91.038 Other insect allergy status; Z79.899 Other long term (current) drug therapy; Z82.5 Family history of asthma and other chronic lower respiratory diseases
CPT/HCPCS: 82075; 99285

== ENCOUNTER 2020-01-23 01:07 | Emergency (ER) | payer OTHER ==
[2020-01-23 01:21] VITALS: RESP 16; TEMP 97.8
--- NOTE | 2020-01-23 01:44 | XR ---
EXAMINATION TYPE: XR chest 2V DATE OF EXAM: 01/23/2020 COMPARISON: 01/16/2020 HISTORY: Chest pain TECHNIQUE: FINDINGS: Heart is normal. Lungs are clear of consolidation. There are no hilar masses. There is no p leural effusion. Bony thorax is intact. IMPRESSION: No active cardiopulmonary disease. There is clearing of minimal density in the right lowe r lobe compared to old exam.
[2020-01-23 02:02] LABS: Basophils # (A) 0.1 k/uL (0-0.2); Basophils % (A) 1 %; Eosinophils # (A) 0.4 k/uL (0-0.7); Eosinophils % (A) 4 %; HCT 37.9 % (39.0-53.0); HGB 12.1 gm/dL (13.0-17.5); Lymphocytes # (A) 3.1 k/uL (1.0-4.8); Lymphocytes % (A) 32 %; MCH 28.4 pg (25.0-35.0); MCHC 31.8 g/dL (31.0-37.0); MCV 89.2 fL (80.0-100.0); Mean Platelet Volume 6.9; Monocytes # (A) 0.5 k/uL (0-1.0); Monocytes % (A) 5 %; Neutrophils # (A) 5.5 k/uL (1.3-7.7); Neutrophils % (A) 57 %; Platelet Count 392 k/uL (150-450); RBC 4.25 m/uL (4.30-5.90); RDW 13.5 % (11.5-15.5); WBC 9.8 k/uL (3.8-10.6)
[2020-01-23 02:17] LABS: INR 0.9 (<1.2); Partial Thromboplastin Time 22.5 sec (22.0-30.0); Prothrombin Time 9.5 sec (9.0-12.0)
[2020-01-23 02:23] LABS: ALT 19 U/L (4-49); AST 23 U/L (17-59); African American GFR (CKD) >90 (>60 ml/min/1.73 sqM); Albumin 3.8 g/dL (3.5-5.0); Alkaline Phosphatase 94 U/L (38-126); Anion Gap 6 mmol/L; Blood Urea Nitrogen 25 mg/dL (9-20); Calcium 9.2 mg/dL (8.4-10.2); Carbon Dioxide 25 mmol/L (22-30); Chloride 105 mmol/L (98-107); Glucose 79 mg/dL (74-99); Magnesium 1.8 mg/dL (1.6-2.3); Non-African American GFR(CKD) >90 (>60 ml/min/1.73 sqM); Potassium 4.2 mmol/L (3.5-5.1); Sodium 136 mmol/L (137-145); Total Bilirubin 0.1 mg/dL (0.2-1.3); Total Protein 6.6 g/dL (6.3-8.2)
--- NOTE | 2020-01-23 02:46 | ED ---
General Adult HPI - General Chief complaint: Chest Pain Stated complaint: chest pain Time Seen by Provider: 01/23/20 01:12 Source: patient Mode of arrival: EMS - History of Present Illness Initial comments: Deangelo is a 49 yo M very well-known to the emergency department for his frequent visits. Patient is currently homeless. He states that tonight he was walking around in the rain and he had chest pain. Pain occurred approximately one hour prior to arrival in the emergency department. He cannot describe the pain but reports that it has resolved now without any treatment. - Related Data Home Medications Medication Instructions Recorded Confirmed Albuterol Inhaler [Ventolin Hfa 1 - 2 puff INHALATION RT-Q6H PRN 01/15/20 01/15/20 Inhaler] Previous Rx's Medication Instructions Recorded Azithromycin [Zithromax] 500 mg PO Q24H #7 tab 01/16/20 Cefdinir [Omnicef] 300 mg PO BID #20 cap 01/16/20 Allergies Allergy/AdvReac Type Severity Reaction Status Date / Time horseradish Allergy Anaphylaxis Verified 01/19/20 00:24 shellfish derived [Shellfish] Allergy Anaphylaxis Verified 01/19/20 00:24 venom-wasp Allergy Anaphylaxis Verified 01/19/20 00:24 Review of Systems ROS Statement: Those systems with pertinent positive or pertinent negative responses have been documented in the HPI. ROS Other: All systems not noted in ROS Statement are negative. 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 Past Anesthesia/Blood Transfusion Reactions: Unable to Obtain Additional Past Anesthesia/Blood Transfusion Reaction / Comment(s): Pt has never had general/spinal anesthesia Past Psychological History: Anxiety, Bipolar, Depression, Schizoaffective Disorder, Schizophrenia Smoking Status: Current every day smoker Past Alcohol Use History: None Reported Past Drug Use History: Marijuana - Past Family History Mother Family Medical History: CVA/TIA, Diabetes Mellitus, Myocardial Infarction ([place]) Father Additional Family Medical History / Comment(s): Emphesema General Exam - General Exam Comments Initial Comments: Physical Exam GENERAL: Patient is well-developed and well-nourished. Patient is nontoxic and well-hydrated and is in no distress. HENT: Normocephalic, Atraumatic. EYES: PERRL, EOMI PULMONARY: Unlabored respirations. CARDIOVASCULAR: RRR Warm and well perfused extremities ABDOMEN: Non-distended SKIN: No rashes or bruising : Deferred NEUROLOGIC: Alert and oriented Normal speech Normal gait MUSCULOSKELETAL: Moving all extremities with no apparent injury PSYCHIATRIC: No SI/HI Course Vital Signs 01/23/20 01/23/20 01/23/20 01:09 01:15 04:20 Temperature 97.8 F Pulse Rate 90 Respiratory 16 16 Rate Blood Pressure 119/82 127/77 O2 Sat by Pulse 100 Oximetry EKG Findings - EKG Comments: EKG Findings:: EKG obtained due to complaint of chest pain. EKG obtained at 1:13am, Rate 56, rhythm sinus bradycardia, normal axis, normal intervals, NV 124, QRS 88, QTc 393. No actue ST elevtions or depressions, no evidence of acute ischemia or infarction. Significant respiratory artifact. Medical Decision Making - Medical Decision Making Patient was seen and evaluated history is obtained from patient and EMS 49-year-old male who called 911 reporting chest pain which had resolved prior to arrival. Upon arrival patient reports she's a symptomatic but very hungry and requesting food and a warm blanket. EKG was nonischemic. Baseline labs were unremarkable troponin is elevated patient is remained asymptomatic. Patient was given food and allowed to rest in the emergency department subsequent discharged in stable condition. - Lab Data Result diagrams: 01/23/20 01:46 01/23/20 01:46 Lab Results 01/23/20 01/23/20 01/23/20 Range/Units 01:46 01:46 01:46 WBC 9.8 (3.8-10.6) k/uL RBC 4.25 L (4.30-5.90) m/uL Hgb 12.1 L (13.0-17.5) gm/dL Hct 37.9 L (39.0-53.0) % MCV 89.2 (80.0-100.0) fL MCH 28.4 (25.0-35.0) pg MCHC 31.8 (31.0-37.0) g/dL RDW 13.5 (11.5-15.5) % Plt Count 392 (150-450) k/uL Neutrophils % 57 % Lymphocytes % 32 % Monocytes % 5 % Eosinophils % 4 % Basophils % 1 % Neutrophils # 5.5 (1.3-7.7) k/uL Lymphocytes # 3.1 (1.0-4.8) k/uL Monocytes # 0.5 (0-1.0) k/uL Eosinophils # 0.4 (0-0.7) k/uL Basophils # 0.1 (0-0.2) k/uL PT 9.5 (9.0-12.0) sec INR 0.9 (<1.2) APTT 22.5 (22.0-30.0) sec Sodium 136 L (137-145) mmol/L Potassium 4.2 (3.5-5.1) mmol/L Chloride 105 (98-107) mmol/L Carbon Dioxide 25 (22-30) mmol/L Anion Gap 6 mmol/L BUN 25 H (9-20) mg/dL Creatinine 0.78 (0.66-1.25) mg/dL Est GFR (CKD-EPI)AfAm >90 (>60 ml/min/1.73 sqM) Est GFR (CKD-EPI)NonAf >90 (>60 ml/min/1.73 sqM) Glucose 79 (74-99) mg/dL Calcium 9.2 (8.4-10.2) mg/dL Magnesium 1.8 (1.6-2.3) mg/dL Total Bilirubin 0.1 L (0.2-1.3) mg/dL AST 23 (17-59) U/L ALT 19 (4-49) U/L Alkaline Phosphatase 94 (38-126) U/L Troponin I (0.000-0.034) ng/mL Total Protein 6.6 (6.3-8.2) g/dL Albumin 3.8 (3.5-5.0) g/dL 01/23/20 Range/Units 01:46 WBC (3.8-10.6) k/uL RBC (4.30-5.90) m/uL Hgb (13.0-17.5) gm/dL Hct (39.0-53.0) % MCV (80.0-100.0) fL MCH (25.0-35.0) pg MCHC (31.0-37.0) g/dL RDW (11.5-15.5) % Plt Count (150-450) k/uL Neutrophils % % Lymphocytes % % Monocytes % % Eosinophils % % Basophils % % Neutrophils # (1.3-7.7) k/uL Lymphocytes # (1.0-4.8) k/uL Monocytes # (0-1.0) k/uL Eosinophils # (0-0.7) k/uL Basophils # (0-0.2) k/uL PT (9.0-12.0) sec INR (<1.2) APTT (22.0-30.0) sec Sodium (137-145) mmol/L Potassium (3.5-5.1) mmol/L Chloride (98-107) mmol/L Carbon Dioxide (22-30) mmol/L Anion Gap mmol/L BUN (9-20) mg/dL Creatinine (0.66-1.25) mg/dL Est GFR (CKD-EPI)AfAm (>60 ml/min/1.73 sqM) Est GFR (CKD-EPI)NonAf (>60 ml/min/1.73 sqM) Glucose (74-99) mg/dL Calcium (8.4-10.2) mg/dL Magnesium (1.6-2.3) mg/dL Total Bilirubin (0.2-1.3) mg/dL AST (17-59) U/L ALT (4-49) U/L Alkaline Phosphatase (38-126) U/L Troponin I <0.012 (0.000-0.034) ng/mL Total Protein (6.3-8.2) g/dL Albumin (3.5-5.0) g/dL Disposition Clinical Impression: Atypical chest pain Disposition: HOME SELF-CARE Condition: Stable Instructions (If sedation given, give patient instructions): Chest Pain (ED) Is patient prescribed a controlled substance at d/c from ED?: No Referrals: Flash Schofield MD [Primary Care Provider] - 1-2 days
[2020-01-23 04:21] VITALS: BP 127/77; PULSE 90
== END 2020-01-23 04:21 | disposition home or self-care (01) ==
LOC: EC 01:07
DX: R07.89 Other chest pain (principal); R79.89 Other specified abnormal findings of blood chemistry; J44.9 Chronic obstructive pulmonary disease, unspecified; F17.200 Nicotine dependence, unspecified, uncomplicated; Z91.013 Allergy to seafood; Z91.018 Allergy to other foods; Z91.038 Other insect allergy status; Z79.899 Other long term (current) drug therapy; Z59.0 Homelessness; Z95.818 Presence of other cardiac implants and grafts; Z82.49 Family history of ischemic heart disease and other diseases of the circulatory system
CPT/HCPCS: 36415; 71046; 80053; 83735; 84484; 85025; 85610; 85730; 93005; 99285

== ENCOUNTER 2020-01-27 22:59 | Emergency (ER) | payer OTHER ==
--- NOTE | 2020-01-27 23:31 | ED ---
Psych HPI - General Chief Complaint: Psychiatric Symptoms Stated Complaint: Suicidal Time Seen by Provider: 01/27/20 23:07 Source: patient Mode of arrival: ambulatory - History of Present Illness Initial Comments: 's patient is a 49-year-old man who presents to be evaluated for depression. He was feeling suicidal earlier as well. He states that this sometimes comes on with drug or alcohol use and admits to using marijuana tonight. The patient denies any actual suicide attempts. He was thinking of walking into traffic earlier. MD Complaint: feels depressed -: days(s) Associated Psychiatric Symptoms: depression History of same: Yes Quality: constant Improves With: none Worsens With: none Context: recent drug abuse Associated Symptoms: denies other symptoms - Related Data Home Medications Medication Instructions Recorded Confirmed Albuterol Inhaler (Bulk) [Ventolin 1 - 2 puff INHALATION RT-Q6H PRN 01/15/20 01/15/20 Hfa Inhaler (Bulk)] Previous Rx's Medication Instructions Recorded Azithromycin [Zithromax] 500 mg PO Q24H #7 tab 01/16/20 Cefdinir [Omnicef] 300 mg PO BID #20 cap 01/16/20 Allergies Allergy/AdvReac Type Severity Reaction Status Date / Time horseradish Allergy Anaphylaxis Verified 01/19/20 00:24 shellfish derived [Shellfish] Allergy Anaphylaxis Verified 01/19/20 00:24 venom-wasp Allergy Anaphylaxis Verified 01/19/20 00:24 Review of Systems ROS Statement: Those systems with pertinent positive or pertinent negative responses have been documented in the HPI. ROS Other: All systems not noted in ROS Statement are negative. Constitutional: Denies: fever, chills Respiratory: Denies: cough, dyspnea Cardiovascular: Denies: chest pain, syncope Gastrointestinal: Denies: abdominal pain, vomiting, diarrhea Musculoskeletal: Denies: back pain Skin: Denies: rash Neurological: Denies: headache Psychiatric: Reports: depression, suicidal thoughts. 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 Past Anesthesia/Blood Transfusion Reactions: Unable to Obtain Additional Past Anesthesia/Blood Transfusion Reaction / Comment(s): Pt has never had general/spinal anesthesia Past Psychological History: Anxiety, Bipolar, Depression, Schizoaffective Disorder, Schizophrenia Smoking Status: Current every day smoker Past Alcohol Use History: None Reported Past Drug Use History: Marijuana - Past Family History Mother Family Medical History: CVA/TIA, Diabetes Mellitus, Myocardial Infarction ([place]) Father Additional Family Medical History / Comment(s): Emphesema General Exam Limitations: no limitations General appearance: alert, in no apparent distress Head exam: Present: atraumatic, normocephalic Eye exam: Present: normal appearance. Absent: scleral icterus, conjunctival injection Neck exam: Present: normal inspection Respiratory exam: Present: normal lung sounds bilaterally. Absent: respiratory distress, wheezes, rales, rhonchi, stridor Cardiovascular Exam: Present: regular rate, normal rhythm, normal heart sounds. Absent: systolic murmur, diastolic murmur, rubs, gallop GI/Abdominal exam: Present: soft. Absent: distended, tenderness, guarding, rebound, rigid, mass Extremities exam: Present: normal inspection Back exam: Present: normal inspection. Absent: CVA tenderness (R), CVA tenderness (L) Neurological exam: Present: alert Skin exam: Present: warm, dry, intact, normal color. Absent: rash Course Vital Signs 01/27/20 01/28/20 23:01 06:00 Temperature 98.0 F 97.2 F L Pulse Rate 76 78 Respiratory 18 16 Rate Blood Pressure 110/69 108/62 O2 Sat by Pulse 99 97 Oximetry Disposition Clinical Impression: Mood disorder Disposition: HOME SELF-CARE Condition: Good Instructions (If sedation given, give patient instructions): Mood Disorders (ED) Is patient prescribed a controlled substance at d/c from ED?: No Referrals: Flash Schofield MD [Primary Care Provider] - 1-2 days
[2020-01-28 06:07] VITALS: BP 108/62; PULSE 78; RESP 16; TEMP 97.2
== END 2020-01-28 07:38 | disposition home or self-care (01) ==
LOC: EC 22:59
DX: F31.9 Bipolar disorder, unspecified (principal); F17.200 Nicotine dependence, unspecified, uncomplicated; Z91.013 Allergy to seafood; Z91.018 Allergy to other foods; Z91.030 Bee allergy status; Z86.73 Personal history of transient ischemic attack (TIA), and cerebral infarction without residual deficits; I25.2 Old myocardial infarction
CPT/HCPCS: 82075; 99285

== ENCOUNTER 2020-01-31 23:26 | Emergency (ER) | payer OTHER ==
[2020-01-31 23:31] VITALS: BP 119/76; PULSE 71; RESP 20; TEMP 97.6
--- NOTE | 2020-01-31 23:55 | ED ---
Psych HPI - General Chief Complaint: Psychiatric Symptoms Stated Complaint: Mental Health Time Seen by Provider: 01/31/20 23:36 Source: patient, RN notes reviewed, old records reviewed Mode of arrival: ambulatory - History of Present Illness Initial Comments: This is a 49-year-old male to the ER presents today for evaluation regards to psychiatric illness feels depression suicidal thoughts secondary to recent loss of family member Patient is on no psychiatric medications and denies any drug abuse MD Complaint: feels depressed -: days(s) Associated Psychiatric Symptoms: depression History of same: Yes Quality: intermittent Improves With: none Worsens With: none Associated Symptoms: denies other symptoms Treatments Prior to Arrival: placed on mental health hold - Related Data Home Medications Medication Instructions Recorded Confirmed Albuterol Inhaler (Bulk) [Ventolin 1 - 2 puff INHALATION RT-Q6H PRN 01/15/20 01/15/20 Hfa Inhaler (Bulk)] Previous Rx's Medication Instructions Recorded Azithromycin [Zithromax] 500 mg PO Q24H #7 tab 01/16/20 Cefdinir [Omnicef] 300 mg PO BID #20 cap 01/16/20 Allergies Allergy/AdvReac Type Severity Reaction Status Date / Time horseradish Allergy Anaphylaxis Verified 01/31/20 23:31 shellfish derived [Shellfish] Allergy Anaphylaxis Verified 01/31/20 23:31 venom-wasp Allergy Anaphylaxis Verified 01/31/20 23:31 Review of Systems ROS Statement: Those systems with pertinent positive or pertinent negative responses have been documented in the HPI. ROS Other: All systems not noted in ROS Statement are negative. 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 Past Anesthesia/Blood Transfusion Reactions: Unable to Obtain Additional Past Anesthesia/Blood Transfusion Reaction / Comment(s): Pt has never had general/spinal anesthesia Past Psychological History: Anxiety, Bipolar, Depression, Schizoaffective Disorder, Schizophrenia Smoking Status: Current every day smoker Past Alcohol Use History: None Reported Past Drug Use History: Marijuana - Past Family History Mother Family Medical History: CVA/TIA, Diabetes Mellitus, Myocardial Infarction ([place]) Father Additional Family Medical History / Comment(s): Emphesema General Exam Limitations: no limitations General appearance: alert, in no apparent distress Head exam: Present: atraumatic, normocephalic, normal inspection Eye exam: Present: normal appearance, PERRL, EOMI. Absent: scleral icterus, conjunctival injection, periorbital swelling ENT exam: Present: normal exam, mucous membranes moist Neck exam: Present: normal inspection. Absent: tenderness, meningismus, lymphadenopathy Respiratory exam: Present: normal lung sounds bilaterally. Absent: respiratory distress, wheezes, rales, rhonchi, stridor Cardiovascular Exam: Present: regular rate, normal rhythm, normal heart sounds. Absent: systolic murmur, diastolic murmur, rubs, gallop, clicks GI/Abdominal exam: Present: soft, normal bowel sounds. Absent: distended, tenderness, guarding, rebound, rigid Extremities exam: Present: normal inspection, full ROM, normal capillary refill. Absent: tenderness, pedal edema, joint swelling, calf tenderness Back exam: Present: normal inspection Neurological exam: Present: alert, oriented X3, CN II-XII intact Psychiatric exam: Present: normal affect, normal mood Skin exam: Present: warm, dry, intact, normal color. Absent: rash Course Vital Signs 01/31/20 23:27 Temperature 97.6 F Pulse Rate 71 Respiratory 20 Rate Blood Pressure 119/76 O2 Sat by Pulse 98 Oximetry - Reevaluation(s) Reevaluation #1: 02/01/20 03:36 Patient made medically clear for psychiatric evaluation Medical Decision Making - Medical Decision Making 5-year-old male seen and evaluated psychiatry patient given psychiatric evaluation and treatment on outpatient basis - Lab Data Lab Results 01/31/20 Range/Units 23:33 Urine Opiates Screen Not Detected (NotDetected) Ur Oxycodone Screen Not Detected (NotDetected) Urine Methadone Screen Not Detected (NotDetected) Ur Propoxyphene Screen Not Detected (NotDetected) Ur Barbiturates Screen Not Detected (NotDetected) U Tricyclic Antidepress Not Detected (NotDetected) Ur Phencyclidine Scrn Not Detected (NotDetected) Ur Amphetamines Screen Not Detected (NotDetected) U Methamphetamines Scrn Not Detected (NotDetected) U Benzodiazepines Scrn Not Detected (NotDetected) Urine Cocaine Screen Not Detected (NotDetected) U Marijuana (THC) Screen Detected H (NotDetected) Disposition Clinical Impression: Adjustment reaction of adult life, Mood disorder, Major depressive disorder, recurrent episode Disposition: HOME SELF-CARE Condition: Fair Instructions (If sedation given, give patient instructions): Grief and Loss (ED) Is patient prescribed a controlled substance at d/c from ED?: No Referrals: Flash Schofield MD [Primary Care Provider] - 1-2 days
[2020-02-01 00:04] LABS: Urn Cannabinoid Scrn Detected (NotDetected)
[2020-02-01 00:05] LABS: Amphetamine Screen,Urine Not Detected (NotDetected); Barbiturate Screen,Urine Not Detected (NotDetected); Benzodiazepines Screen,Urine Not Detected (NotDetected); Cocaine Screen,Urine Not Detected (NotDetected); Methadone Screen, Urine Not Detected (NotDetected); Opiate Screen,Urine Not Detected (NotDetected); Oxycodone Screen, Urine Not Detected (NotDetected); Phencyclidine Screen,Urine Not Detected (NotDetected); Tricyclic Antidepressant,Urine Not Detected (NotDetected)
== END 2020-02-01 06:10 | disposition home or self-care (01) ==
LOC: EC 23:26
DX: F43.22 Adjustment disorder with anxiety (principal); F33.3 Major depressive disorder, recurrent, severe with psychotic symptoms; J44.9 Chronic obstructive pulmonary disease, unspecified; F17.200 Nicotine dependence, unspecified, uncomplicated; Z91.018 Allergy to other foods; Z91.013 Allergy to seafood; Z91.030 Bee allergy status; Z86.73 Personal history of transient ischemic attack (TIA), and cerebral infarction without residual deficits
CPT/HCPCS: 80306; 82075; 99285

== ENCOUNTER 2020-02-10 21:55 | Emergency (ER) | payer OTHER ==
--- NOTE | 2020-02-10 22:58 | XR ---
EXAMINATION TYPE: XR hand complete RT DATE OF EXAM: 02/10/2020 COMPARISON: NONE HISTORY: Pain TECHNIQUE: 3 views FINDINGS: Metacarpals are intact. I see no fracture nor dislocation. There is some soft tissue deform ity of the dorsum of the hand over the metacarpals distally. IMPRESSION: Soft tissue deformity could relate to laceration. No fracture seen.
--- NOTE | 2020-02-10 23:24 | ED ---
General Adult HPI - General Chief complaint: Extremity Injury, Upper Stated complaint: Hand injury Time Seen by Provider: 02/10/20 22:00 Source: patient Mode of arrival: ambulatory Limitations: no limitations - History of Present Illness Initial comments: The patient is a 49-year-old male with past medical history of COPD and CVA who presents emergency room with reported right hand pain. The patient is right- hand dominant. States that today he found out that 3 of his family members tested positive for covid and because of this he hit a wooden pillar. He has pain in his right third digit with concern for fracture therefore presents emergency for evaluation. He does have a small abrasion noted over the third digit. Bleeding is resolved at this time. He continues to have intact range of motion and sensation. He denies any wrist pain. He does not take any medications for his symptoms. Patient does believe he is utd on his tetanus. There are no alleviating, precipitating or modifying factors - Related Data Home Medications Medication Instructions Recorded Confirmed Albuterol Inhaler (Bulk) [Ventolin 1 - 2 puff INHALATION RT-Q6H PRN 01/15/20 01/15/20 Hfa Inhaler (Bulk)] Previous Rx's Medication Instructions Recorded Azithromycin [Zithromax] 500 mg PO Q24H #7 tab 01/16/20 Cefdinir [Omnicef] 300 mg PO BID #20 cap 01/16/20 Allergies Allergy/AdvReac Type Severity Reaction Status Date / Time horseradish Allergy Anaphylaxis Verified 02/10/20 22:03 shellfish derived [Shellfish] Allergy Anaphylaxis Verified 02/10/20 22:03 venom-wasp Allergy Anaphylaxis Verified 02/10/20 22:03 Review of Systems ROS Statement: Those systems with pertinent positive or pertinent negative responses have been documented in the HPI. ROS Other: All systems not noted in ROS Statement are negative. 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 Past Anesthesia/Blood Transfusion Reactions: Unable to Obtain Additional Past Anesthesia/Blood Transfusion Reaction / Comment(s): Pt has never had general/spinal anesthesia Past Psychological History: Anxiety, Bipolar, Depression, Schizoaffective Disorder, Schizophrenia Smoking Status: Current every day smoker Past Alcohol Use History: None Reported Past Drug Use History: Marijuana - Past Family History Mother Family Medical History: CVA/TIA, Diabetes Mellitus, Myocardial Infarction ([place]) Father Additional Family Medical History / Comment(s): Emphesema General Exam Limitations: no limitations General appearance: alert, in no apparent distress Extremities exam: Present: other (tenderness to palpation over MCP joint of third digit right hand. No overlying swelling or redness. Small 2 mm scab over MCP joint. Intact ROM in the median, radial and ulnar nerve distributions. 2+ radial and ulnar pulses. Compartments are soft. Intact distal sensation. No wrist pain. ) Course Vital Signs 02/10/20 02/11/20 22:00 00:34 Temperature 97.6 F 98.4 F Pulse Rate 69 60 Respiratory 20 18 Rate Blood Pressure 129/77 122/72 O2 Sat by Pulse 99 94 L Oximetry Medical Decision Making - Medical Decision Making Upon arrival the patient is placed into room 18. A thorough history and physical exam was performed. The patient has intact sensation and strength. He is sent over for an x-ray of his right hand demonstrates no acute fractures. Discussed diagnosis, differential and treatment options. I instructed the patient to take Motrin for pain control. At this time he is discharged home. He is to follow-up with his primary care doctor in regards to his pain. Return to the emergency room for any worsening symptoms. Patient was in agreement treatment plan discharged home stable condition Disposition Clinical Impression: Right hand pain Disposition: HOME SELF-CARE Condition: Stable Instructions (If sedation given, give patient instructions): Hand Sprain (ED) Additional Instructions: Please follow-up with your primary care doctor in 2-4 days. Return to the emergency room for any new or worsening symptoms Is patient prescribed a controlled substance at d/c from ED?: No Referrals: lFash Schofield MD [Primary Care Provider] - 1-2 days Time of Disposition: 23:23
[2020-02-11 00:36] VITALS: BP 122/72; PULSE 60; RESP 18; TEMP 98.4
== END 2020-02-11 00:36 | disposition home or self-care (01) ==
LOC: EC 21:55
DX: M79.641 Pain in right hand (principal); J44.9 Chronic obstructive pulmonary disease, unspecified; I25.2 Old myocardial infarction; F17.200 Nicotine dependence, unspecified, uncomplicated; Z91.018 Allergy to other foods; Z91.013 Allergy to seafood; Z91.030 Bee allergy status; Z86.73 Personal history of transient ischemic attack (TIA), and cerebral infarction without residual deficits
CPT/HCPCS: 99283

== ENCOUNTER 2020-02-13 22:44 | Emergency (ER) | payer OTHER ==
[2020-02-13 22:50] VITALS: RESP 18; TEMP 97.9
--- NOTE | 2020-02-13 23:28 | ED ---
General Adult HPI - General Chief complaint: Psychiatric Symptoms Stated complaint: Mental Health Time Seen by Provider: 02/13/20 22:55 Source: patient, RN notes reviewed, old records reviewed Mode of arrival: ambulatory Limitations: no limitations - History of Present Illness Initial comments: Patient is a 49-year-old male presents emergency room today with suicidal homicidal ideation. Patient reports he was upset with some people he is staying with and stated that he called the police on himself because he wanted to harm them into the 3 people he was lifting kill them and then kill himself. Patient states that he had no possession of a gun at the time. Patient reports that he also was hungry needs to stay. - Related Data Home Medications Medication Instructions Recorded Confirmed Unable To Assess [Unable to Assess] 02/13/20 02/13/20 Allergies Allergy/AdvReac Type Severity Reaction Status Date / Time horseradish Allergy Anaphylaxis Verified 02/13/20 22:50 shellfish derived [Shellfish] Allergy Anaphylaxis Verified 02/13/20 22:50 venom-wasp Allergy Anaphylaxis Verified 02/13/20 22:50 Review of Systems ROS Statement: Those systems with pertinent positive or pertinent negative responses have been documented in the HPI. ROS Other: All systems not noted in ROS Statement are negative. 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 Past Anesthesia/Blood Transfusion Reactions: Unable to Obtain Additional Past Anesthesia/Blood Transfusion Reaction / Comment(s): Pt has never had general/spinal anesthesia Past Psychological History: Anxiety, Bipolar, Depression, Schizoaffective Disorder, Schizophrenia Smoking Status: Current every day smoker Past Alcohol Use History: None Reported Past Drug Use History: Marijuana - Past Family History Mother Family Medical History: CVA/TIA, Diabetes Mellitus, Myocardial Infarction ([place]) Father Additional Family Medical History / Comment(s): Emphesema General Exam - General Exam Comments Initial Comments: 49 year old male no distress. Limitations: no limitations Head exam: Present: atraumatic, normocephalic, normal inspection Eye exam: Present: normal appearance, PERRL, EOMI. Absent: scleral icterus, conjunctival injection, periorbital swelling ENT exam: Present: normal exam, mucous membranes moist Neck exam: Present: normal inspection. Absent: tenderness, meningismus, lymphadenopathy Respiratory exam: Present: normal lung sounds bilaterally. Absent: respiratory distress, wheezes, rales, rhonchi, stridor Cardiovascular Exam: Present: regular rate, normal rhythm, normal heart sounds. Absent: systolic murmur, diastolic murmur, rubs, gallop, clicks GI/Abdominal exam: Present: soft, normal bowel sounds. Absent: distended, tenderness, guarding, rebound, rigid Extremities exam: Present: normal inspection, full ROM, normal capillary refill. Absent: tenderness, pedal edema, joint swelling, calf tenderness Back exam: Present: normal inspection Neurological exam: Present: alert, oriented X3, CN II-XII intact Psychiatric exam: Present: normal affect, normal mood, other (reports suicidal ideation and homicidal ideation by wanting to take a gun and kill his friends whom he was in an arguement with today. He called the police on himself, and reports no access to a gun and then later denies these plans to [facility]. ) Course Vital Signs 02/13/20 22:45 Temperature 97.9 F Pulse Rate 88 Respiratory 18 Rate Blood Pressure 128/82 O2 Sat by Pulse 99 Oximetry Medical Decision Making - Medical Decision Making 49 year old male presents with police for homicidal statement and suicidal statement after arguing with family friends over bringing them food today. He is homeless and reports needing a place to stay and also reports he is hungry. D enies any physical complaints. WAs evaluated by EPS and determined patient is safe and not suicidal and homicidal and wanted somewhere to stay where it is warm and is hungry. Patient will be discharged and agrees to safety plan with follow up with [facility]. - Lab Data Lab Results 02/13/20 Range/Units 23:42 Urine Opiates Screen Not Detected (NotDetected) Ur Oxycodone Screen Not Detected (NotDetected) Urine Methadone Screen Not Detected (NotDetected) Ur Propoxyphene Screen Not Detected (NotDetected) Ur Barbiturates Screen Not Detected (NotDetected) U Tricyclic Antidepress Not Detected (NotDetected) Ur Phencyclidine Scrn Not Detected (NotDetected) Ur Amphetamines Screen Not Detected (NotDetected) U Methamphetamines Scrn Not Detected (NotDetected) U Benzodiazepines Scrn Detected H (NotDetected) Urine Cocaine Screen Not Detected (NotDetected) U Marijuana (THC) Screen Detected H (NotDetected) Disposition Clinical Impression: Depression, Mood disorder, Homelessness Disposition: HOME SELF-CARE Condition: Good Instructions (If sedation given, give patient instructions): Depression (ED) Additional Instructions: Patient has a follow up with [facility]. Is patient prescribed a controlled substance at d/c from ED?: No Referrals: Flash Schofield MD [Primary Care Provider] - 1-2 days Time of Disposition: 00:20
[2020-02-14 00:13] LABS: Amphetamine Screen,Urine Not Detected (NotDetected); Barbiturate Screen,Urine Not Detected (NotDetected); Benzodiazepines Screen,Urine Detected (NotDetected); Cocaine Screen,Urine Not Detected (NotDetected); Methadone Screen, Urine Not Detected (NotDetected); Opiate Screen,Urine Not Detected (NotDetected); Oxycodone Screen, Urine Not Detected (NotDetected); Phencyclidine Screen,Urine Not Detected (NotDetected); Tricyclic Antidepressant,Urine Not Detected (NotDetected); Urn Cannabinoid Scrn Detected (NotDetected)
[2020-02-14 07:29] VITALS: BP 122/64; PULSE 77
== END 2020-02-14 06:23 | disposition home or self-care (01) ==
LOC: EC 22:44
DX: F32.9 Major depressive disorder, single episode, unspecified (principal); Z59.0 Homelessness; T73.0XXA Starvation, initial encounter; F17.200 Nicotine dependence, unspecified, uncomplicated; Z91.018 Allergy to other foods; Z91.013 Allergy to seafood; Z91.030 Bee allergy status; Z86.73 Personal history of transient ischemic attack (TIA), and cerebral infarction without residual deficits
CPT/HCPCS: 80306; 82075; 99285

== ENCOUNTER 2020-03-04 01:38 | Emergency (ER) | payer OTHER ==
[2020-03-04 01:46] VITALS: TEMP 98.4
--- NOTE | 2020-03-04 01:55 | ED ---
Chest Pain HPI - General Chief Complaint: Chest Pain Stated Complaint: Chest pain Time Seen by Provider: 03/04/20 01:45 Source: patient, EMS Mode of arrival: EMS Limitations: no limitations - History of Present Illness MD Complaint: chest pain -: hour(s) Onset: during rest Pain Location: substernal Pain Radiation: none Severity: moderate Quality: aching Consistency: constant Improves With: nothing Worsens With: nothing Treatments Prior to Arrival: none - Related Data Home Medications Medication Instructions Recorded Confirmed Unable To Assess [Unable to Assess] 02/13/20 02/13/20 Allergies Allergy/AdvReac Type Severity Reaction Status Date / Time horseradish Allergy Anaphylaxis Verified 02/13/20 22:50 shellfish derived [Shellfish] Allergy Anaphylaxis Verified 02/13/20 22:50 venom-wasp Allergy Anaphylaxis Verified 02/13/20 22:50 Review of Systems ROS Statement: Those systems with pertinent positive or pertinent negative responses have been documented in the HPI. ROS Other: All systems not noted in ROS Statement are negative. Constitutional: Denies: fever, chills Respiratory: Denies: cough, dyspnea Cardiovascular: Reports: as per HPI, chest pain. Denies: palpitations, edema Gastrointestinal: Denies: abdominal pain, nausea, vomiting Genitourinary: Denies: dysuria, hematuria Musculoskeletal: Denies: back pain Skin: Denies: rash Neurological: Denies: headache EKG Findings - EKG Results: EKG: interpreted by MANDYD, sinus rhythm (With sinus arrhythmia rate 74 bpm), normal axis, normal QRS, normal ST/T 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, cerebral aneurysm stable, migraines, Last Myocardial Infarction Date:: History of Any Multi-Drug Resistant Organisms: None Reported Past Surgical History: Heart Catheterization Additional Past Surgical History / Comment(s): pt state no heart cath- previous health documentation shows he has had one. Past Anesthesia/Blood Transfusion Reactions: Unable to Obtain Additional Past Anesthesia/Blood Transfusion Reaction / Comment(s): Pt has never had general/spinal anesthesia Past Psychological History: Anxiety, Bipolar, Depression, Schizoaffective Disorder, Schizophrenia Smoking Status: Current every day smoker Past Alcohol Use History: None Reported Past Drug Use History: Marijuana - Past Family History Mother Family Medical History: CVA/TIA, Diabetes Mellitus, Myocardial Infarction ([place]) Father Additional Family Medical History / Comment(s): Emphesema General Exam Limitations: no limitations General appearance: alert, in no apparent distress Head exam: Present: atraumatic, normocephalic Respiratory exam: Present: normal lung sounds bilaterally. Absent: respiratory distress, wheezes, rales, rhonchi, stridor Cardiovascular Exam: Present: regular rate, normal rhythm, normal heart sounds. Absent: systolic murmur, diastolic murmur, rubs, gallop GI/Abdominal exam: Present: soft. Absent: distended, tenderness, guarding, rebound, rigid, mass Extremities exam: Present: normal inspection, normal capillary refill. Absent: pedal edema, calf tenderness Neurological exam: Present: alert Skin exam: Present: warm, dry, intact, normal color. 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
[2020-03-04 02:22] LABS: Basophils # (A) 0.2 k/uL (0-0.2); Basophils % (A) 1 %; Eosinophils # (A) 0.6 k/uL (0-0.7); Eosinophils % (A) 5 %; HCT 44.8 % (39.0-53.0); HGB 14.1 gm/dL (13.0-17.5); Hypochromasia Slight; Lymphocytes # (A) 3.3 k/uL (1.0-4.8); Lymphocytes % (A) 26 %; MCH 28.7 pg (25.0-35.0); MCHC 31.5 g/dL (31.0-37.0); MCV 90.9 fL (80.0-100.0); Mean Platelet Volume 6.9; Monocytes # (A) 0.7 k/uL (0-1.0); Monocytes % (A) 5 %; Neutrophils # (A) 7.7 k/uL (1.3-7.7); Neutrophils % (A) 60 %; Platelet Count 423 k/uL (150-450); RBC 4.93 m/uL (4.30-5.90); RDW 14.2 % (11.5-15.5); WBC 12.8 k/uL (3.8-10.6)
[2020-03-04 02:27] LABS: African American GFR (CKD) >90 (>60 ml/min/1.73 sqM); Anion Gap 6 mmol/L; Blood Urea Nitrogen 13 mg/dL (9-20); Calcium 9.5 mg/dL (8.4-10.2); Carbon Dioxide 30 mmol/L (22-30); Chloride 101 mmol/L (98-107); Glucose 96 mg/dL (74-99); Non-African American GFR(CKD) >90 (>60 ml/min/1.73 sqM); Potassium 4.5 mmol/L (3.5-5.1); Sodium 137 mmol/L (137-145)
--- NOTE | 2020-03-04 02:46 | XR ---
EXAMINATION TYPE: XR chest 1V portable DATE OF EXAM: 03/04/2020 COMPARISON: 01/23/2020 HISTORY: Chest pain TECHNIQUE: FINDINGS: Heart and mediastinum are normal. Lungs are clear of infiltrate. There is no pleural effusi on. There are no hilar masses. Only thorax is intact. There are chest leads. There is apparent old ri ght clavicle fracture. IMPRESSION: No active cardiopulmonary disease. No change.
[2020-03-04 03:07] VITALS: BP 113/82; PULSE 82; RESP 18
== END 2020-03-04 03:08 | disposition home or self-care (01) ==
LOC: EC 01:38
DX: R07.9 Chest pain, unspecified (principal); I25.2 Old myocardial infarction; F17.200 Nicotine dependence, unspecified, uncomplicated; Z91.018 Allergy to other foods; Z91.013 Allergy to seafood; Z91.038 Other insect allergy status; Z86.73 Personal history of transient ischemic attack (TIA), and cerebral infarction without residual deficits; Z82.49 Family history of ischemic heart disease and other diseases of the circulatory system; Z95.5 Presence of coronary angioplasty implant and graft
CPT/HCPCS: 36415; 71045; 80048; 84484; 85025; 93005; 99285

== ENCOUNTER 2020-03-18 21:12 | Emergency (ER) | payer OTHER ==
[2020-03-18 21:25] VITALS: BP 114/86; PULSE 95; TEMP 97.9
--- NOTE | 2020-03-18 22:04 | ED ---
General Adult HPI - General Source: patient, RN notes reviewed Mode of arrival: ambulatory Limitations: no limitations <Panchito Suarez - Last Filed: 03/18/20 22:03> <Glynn Krishna - Last Filed: 03/19/20 01:28> - General Chief complaint: Psychiatric Symptoms Stated complaint: Mental health Time Seen by Provider: 03/18/20 21:42 - History of Present Illness Initial comments: Patient is a pleasant 50-year-old male presenting to the emergency Department with depression and suicidal thoughts. Patient just found out today that his mother of cancer. Patient feels depressed with plan of harming himself. Patient did have a couple plans. No homicidal thoughts. No hallucinations. No alcohol or street drug use. Patient states he has not been taking his Remeron because his Xanax has been working well. Patient does have a history of previous suicide attempt. (Panchito Suarez) - Related Data Home Medications Medication Instructions Recorded Confirmed Unable To Assess [Unable to Assess] 02/13/20 02/13/20 Allergies Allergy/AdvReac Type Severity Reaction Status Date / Time horseradish Allergy Anaphylaxis Verified 02/13/20 22:50 venom-wasp Allergy Anaphylaxis Verified 02/13/20 22:50 Review of Systems ROS Other: All systems not noted in ROS Statement are negative. Constitutional: Denies: fever Eyes: Denies: eye pain ENT: Denies: ear pain Respiratory: Denies: dyspnea Cardiovascular: Denies: chest pain Endocrine: Denies: fatigue Gastrointestinal: Denies: abdominal pain Genitourinary: Denies: dysuria Musculoskeletal: Denies: back pain Skin: Denies: rash Neurological: Denies: weakness Psychiatric: Reports: depression, suicidal thoughts <Panchito Suarez - Last Filed: 03/18/20 22:03> ROS Other: All systems not noted in ROS Statement are negative. <Glynn Krishna - Last Filed: 03/19/20 01:28> ROS Statement: Those systems with pertinent positive or pertinent negative responses have been documented in the HPI. 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 Past Anesthesia/Blood Transfusion Reactions: Unable to Obtain Additional Past Anesthesia/Blood Transfusion Reaction / Comment(s): Pt has never had general/spinal anesthesia Past Psychological History: Anxiety, Bipolar, Depression, Schizoaffective Disorder, Schizophrenia Smoking Status: Current every day smoker Past Alcohol Use History: None Reported Past Drug Use History: Marijuana - Past Family History Mother Family Medical History: CVA/TIA, Diabetes Mellitus, Myocardial Infarction ([place]) Father Additional Family Medical History / Comment(s): Emphesema <Panchito Suarez - Last Filed: 03/18/20 22:03> General Exam Limitations: no limitations General appearance: alert, in no apparent distress Head exam: Present: normocephalic Eye exam: Present: normal appearance Neck exam: Present: normal inspection Respiratory exam: Present: normal lung sounds bilaterally Cardiovascular Exam: Present: regular rate, normal rhythm GI/Abdominal exam: Present: soft. Absent: tenderness Extremities exam: Present: normal inspection Neurological exam: Present: alert Psychiatric exam: Present: depressed Skin exam: Present: normal color <Panchito Suarez Last Filed: 03/18/20 22:03> Course Vital Signs 03/18/20 03/18/20 21:21 22:15 Temperature 97.9 F Pulse Rate 95 Respiratory 16 18 Rate Blood Pressure 114/86 O2 Sat by Pulse 98 Oximetry Medical Decision Making - Lab Data Lab Results 03/18/20 Range/Units 23:00 Urine Opiates Screen Not Detected (NotDetected) Ur Oxycodone Screen Not Detected (NotDetected) Urine Methadone Screen Not Detected (NotDetected) Ur Propoxyphene Screen Not Detected (NotDetected) Ur Barbiturates Screen Not Detected (NotDetected) U Tricyclic Antidepress Not Detected (NotDetected) Ur Phencyclidine Scrn Not Detected (NotDetected) Ur Amphetamines Screen Not Detected (NotDetected) U Methamphetamines Scrn Not Detected (NotDetected) U Benzodiazepines Scrn Detected H (NotDetected) Urine Cocaine Screen Not Detected (NotDetected) U Marijuana (THC) Screen Not Detected (NotDetected) Disposition <Panchito Suarez - Last Filed: 03/18/20 22:03> Is patient prescribed a controlled substance at d/c from ED?: No <Glynn Krishna - Last Filed: 03/19/20 01:28> Clinical Impression: Mood disorder Disposition: HOME SELF-CARE Condition: Good Instructions (If sedation given, give patient instructions): Mood Disorders (ED) Referrals: Flash Schofield MD [Primary Care Provider] - 1-2 days
[2020-03-18 22:32] VITALS: RESP 18
[2020-03-18 23:32] LABS: Amphetamine Screen,Urine Not Detected (NotDetected); Barbiturate Screen,Urine Not Detected (NotDetected); Benzodiazepines Screen,Urine Detected (NotDetected); Cocaine Screen,Urine Not Detected (NotDetected); Methadone Screen, Urine Not Detected (NotDetected); Opiate Screen,Urine Not Detected (NotDetected); Oxycodone Screen, Urine Not Detected (NotDetected); Phencyclidine Screen,Urine Not Detected (NotDetected); Tricyclic Antidepressant,Urine Not Detected (NotDetected); Urn Cannabinoid Scrn Not Detected (NotDetected)
== END 2020-03-19 01:32 | disposition home or self-care (01) ==
LOC: EC 21:12
DX: F39 Unspecified mood [affective] disorder (principal); I25.2 Old myocardial infarction; F17.200 Nicotine dependence, unspecified, uncomplicated; Z91.030 Bee allergy status; Z91.018 Allergy to other foods; Z86.73 Personal history of transient ischemic attack (TIA), and cerebral infarction without residual deficits
CPT/HCPCS: 80306; 82075; 99285

== ENCOUNTER 2020-05-12 22:08 | Emergency (ER) | payer OTHER ==
[2020-05-12 22:16] VITALS: TEMP 98.3
[2020-05-12] MEDS ORDERED: IPRATROPIUM-ALBUTEROL 3 ML NEB INHALATION STA (23:41)
[2020-05-12] MEDS ORDERED: methylPREDNISolone SOD SUCCI 125 MG/2 ML VIAL IV STA (23:41)
[2020-05-12 23:56] LABS: Basophils # (A) 0.1 k/uL (0-0.2); Basophils % (A) 1 %; Eosinophils # (A) 0.3 k/uL (0-0.7); Eosinophils % (A) 3 %; HCT 40.6 % (39.0-53.0); HGB 13.6 gm/dL (13.0-17.5); Lymphocytes # (A) 2.7 k/uL (1.0-4.8); Lymphocytes % (A) 25 %; MCH 29.6 pg (25.0-35.0); MCHC 33.4 g/dL (31.0-37.0); MCV 88.7 fL (80.0-100.0); Mean Platelet Volume 7.3; Monocytes # (A) 0.7 k/uL (0-1.0); Monocytes % (A) 6 %; Neutrophils % (A) 64 %; Platelet Count 336 k/uL (150-450); RBC 4.58 m/uL (4.30-5.90); RDW 14.2 % (11.5-15.5)
[2020-05-13 00:05] LABS: INR 0.9 (<1.2); Partial Thromboplastin Time 24.9 sec (22.0-30.0); Prothrombin Time 9.8 sec (9.0-12.0)
[2020-05-13 00:06] LABS: ALT 13 U/L (4-49); AST 29 U/L (17-59); African American GFR (CKD) >90 (>60 ml/min/1.73 sqM); Albumin 4.4 g/dL (3.5-5.0); Alkaline Phosphatase 100 U/L (38-126); Anion Gap 9 mmol/L; Blood Urea Nitrogen 24 mg/dL (9-20); Calcium 9.4 mg/dL (8.4-10.2); Carbon Dioxide 23 mmol/L (22-30); Chloride 106 mmol/L (98-107); Glucose 87 mg/dL (74-99); Magnesium 1.9 mg/dL (1.6-2.3); Non-African American GFR(CKD) >90 (>60 ml/min/1.73 sqM); Potassium 4.5 mmol/L (3.5-5.1); Sodium 138 mmol/L (137-145); Total Bilirubin 0.4 mg/dL (0.2-1.3); Total Protein 6.8 g/dL (6.3-8.2)
--- NOTE | 2020-05-13 00:29 | XR ---
EXAMINATION TYPE: XR chest 2V DATE OF EXAM: 05/13/2020 COMPARISON: 03/04/2020 HISTORY: Chest pain TECHNIQUE: . FINDINGS: Heart and mediastinum are normal. Lungs are clear. Diaphragm is normal. Bony thorax appears normal IMPRESSION: Normal chest. No change.
--- NOTE | 2020-05-13 00:39 | ED ---
SOB HPI - General Chief Complaint: Shortness of Breath Stated Complaint: Shortness of Breath Time Seen by Provider: 05/12/20 22:24 Source: patient Mode of arrival: ambulatory Limitations: no limitations - History of Present Illness Initial Comments: 50-year-old male patient presents to the emergency department today for evaluation of shortness of breath and chest pain. Patient states he is having sharp stabbing left-sided chest pains intermittently since 9 PM. States he has been short of breath throughout the day after working outside in the heat. Patient states he has been occasional cough with no sputum production. States this is common for him due to his history of smoking. He denies any dizziness or weakness. Denies any syncopal events. Denies nausea, vomiting, or abdominal pain. Denies history of cardiac disease. Does report a history of CVA. Patient denies any recent rash, diarrhea, constipation, back pain, numbness, tingling, hematuria, dysuria, urinary urgency, urinary frequency, headache, visual changes, or any other complaints. - Related Data Home Medications Medication Instructions Recorded Confirmed ALPRAZolam [Xanax] 1 mg PO DAILY PRN 05/12/20 05/12/20 Albuterol Inhaler [Ventolin Hfa 2 puff INHALATION RT-Q6H PRN 05/12/20 05/12/20 Inhaler] Allergies Allergy/AdvReac Type Severity Reaction Status Date / Time horseradish Allergy Anaphylaxis Verified 05/12/20 22:59 venom-wasp Allergy Anaphylaxis Verified 05/12/20 22:59 Review of Systems ROS Statement: Those systems with pertinent positive or pertinent negative responses have been documented in the HPI. ROS Other: All systems not noted in ROS Statement are negative. 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 Past Anesthesia/Blood Transfusion Reactions: Unable to Obtain Additional Past Anesthesia/Blood Transfusion Reaction / Comment(s): Pt has never had general/spinal anesthesia Past Psychological History: Anxiety, Bipolar, Depression, Schizoaffective Di sorder, Schizophrenia Smoking Status: Current every day smoker Past Alcohol Use History: None Reported Past Drug Use History: Marijuana - Past Family History Mother Family Medical History: CVA/TIA, Diabetes Mellitus, Myocardial Infarction ([place]) Father Additional Family Medical History / Comment(s): Emphesema General Exam Limitations: no limitations General appearance: alert, in no apparent distress, other (This is a well- developed, well-nourished adult male patient in no acute distress. Vital signs upon presentation are temperature 98.3F, pulse 83, respirations 20, blood pressure 90/58, pulse ox 97% on room air.) Eye exam: Present: normal appearance, PERRL, EOMI. Absent: scleral icterus, conjunctival injection, periorbital swelling ENT exam: Present: normal exam, normal oropharynx, mucous membranes moist Respiratory exam: Present: normal lung sounds bilaterally. Absent: respiratory distress, wheezes, rales, rhonchi, stridor Cardiovascular Exam: Present: regular rate, normal rhythm, normal heart sounds. Absent: systolic murmur, diastolic murmur, rubs, gallop, clicks GI/Abdominal exam: Present: soft, normal bowel sounds. Absent: distended, tenderness, guarding, rebound, rigid Neurological exam: Present: alert, oriented X3, CN II-XII intact Psychiatric exam: Present: normal affect, normal mood Skin exam: Present: warm, dry, intact, normal color. Absent: rash Course Vital Signs 05/12/20 05/12/20 05/13/20 22:13 22:34 00:19 Temperature 98.3 F Pulse Rate 83 68 Respiratory 20 16 Rate Blood Pressure 90/58 O2 Sat by Pulse 97 Oximetry 05/13/20 05/13/20 05/13/20 00:29 01:18 02:04 Temperature Pulse Rate 81 74 74 Respiratory 18 18 Rate Blood Pressure 93/71 95/69 O2 Sat by Pulse 95 95 Oximetry Medical Decision Making - Medical Decision Making 50-year-old male patient presented to the emergency department today for evaluation of chest pain and shortness of breath. Physical examination revealed clear equal lung sounds. Abdomen soft and nontender. Labs reviewed and are unremarkable. Patient did have blood pressures in the 90s while here, he was sleeping during these readings. He is not having any symptoms with this. He was given 1 L of IV fluids per Chest x-ray is clear. He'll be discharged follow up with his primary care physician for recheck in 1-2 days. Return parameters discussed in detail. He verbalizes understanding and agrees with this plan. - Lab Data Result diagrams: 05/12/20 23:43 05/12/20 23:43 Lab Results 05/12/20 05/12/20 05/12/20 Range/Units 23:43 23:43 23:43 WBC 11.0 H (3.8-10.6) k/uL RBC 4.58 (4.30-5.90) m/uL Hgb 13.6 (13.0-17.5) gm/dL Hct 40.6 (39.0-53.0) % MCV 88.7 (80.0-100.0) fL MCH 29.6 (25.0-35.0) pg MCHC 33.4 (31.0-37.0) g/dL RDW 14.2 (11.5-15.5) % Plt Count 336 (150-450) k/uL Neutrophils % 64 % Lymphocytes % 25 % Monocytes % 6 % Eosinophils % 3 % Basophils % 1 % Neutrophils # 7.0 (1.3-7.7) k/uL Lymphocytes # 2.7 (1.0-4.8) k/uL Monocytes # 0.7 (0-1.0) k/uL Eosinophils # 0.3 (0-0.7) k/uL Basophils # 0.1 (0-0.2) k/uL PT 9.8 (9.0-12.0) sec INR 0.9 (<1.2) APTT 24.9 (22.0-30.0) sec Sodium 138 (137-145) mmol/L Potassium 4.5 (3.5-5.1) mmol/L Chloride 106 (98-107) mmol/L Carbon Dioxide 23 (22-30) mmol/L Anion Gap 9 mmol/L BUN 24 H (9-20) mg/dL Creatinine 0.92 (0.66-1.25) mg/dL Est GFR (CKD-EPI)AfAm >90 (>60 ml/min/1.73 sqM) Est GFR (CKD-EPI)NonAf >90 (>60 ml/min/1.73 sqM) Glucose 87 (74-99) mg/dL Plasma Lactic Acid Jluis (0.7-2.0) mmol/L Calcium 9.4 (8.4-10.2) mg/dL Magnesium 1.9 (1.6-2.3) mg/dL Total Bilirubin 0.4 (0.2-1.3) mg/dL AST 29 (17-59) U/L ALT 13 (4-49) U/L Alkaline Phosphatase 100 (38-126) U/L Troponin I (0.000-0.034) ng/mL Total Protein 6.8 (6.3-8.2) g/dL Albumin 4.4 (3.5-5.0) g/dL 05/12/20 05/12/20 Range/Units 23:43 23:48 WBC (3.8-10.6) k/uL RBC (4.30-5.90) m/uL Hgb (13.0-17.5) gm/dL Hct (39.0-53.0) % MCV (80.0-100.0) fL MCH (25.0-35.0) pg MCHC (31.0-37.0) g/dL RDW (11.5-15.5) % Plt Count (150-450) k/uL Neutrophils % % Lymphocytes % % Monocytes % % Eosinophils % % Basophils % % Neutrophils # (1.3-7.7) k/uL Lymphocytes # (1.0-4.8) k/uL Monocytes # (0-1.0) k/uL Eosinophils # (0-0.7) k/uL Basophils # (0-0.2) k/uL PT (9.0-12.0) sec INR (<1.2) APTT (22.0-30.0) sec Sodium (137-145) mmol/L Potassium (3.5-5.1) mmol/L Chloride (98-107) mmol/L Carbon Dioxide (22-30) mmol/L Anion Gap mmol/L BUN (9-20) mg/dL Creatinine (0.66-1.25) mg/dL Est GFR (CKD-EPI)AfAm (>60 ml/min/1.73 sqM) Est GFR (CKD-EPI)NonAf (>60 ml/min/1.73 sqM) Glucose (74-99) mg/dL Plasma Lactic Acid Jluis 1.0 (0.7-2.0) mmol/L Calcium (8.4-10.2) mg/dL Magnesium (1.6-2.3) mg/dL Total Bilirubin (0.2-1.3) mg/dL AST (17-59) U/L ALT (4-49) U/L Alkaline Phosphatase (38-126) U/L Troponin I <0.012 (0.000-0.034) ng/mL Total Protein (6.3-8.2) g/dL Albumin (3.5-5.0) g/dL - EKG Data -: EKG Interpreted by Me EKG Comments: EKG obtained at 2350 shows normal sinus rhythm with a ventricular rate of 63, OR interval 126, QR mandaeism 90, QT 416, QTC 425. No evidence of ST elevation or depression. - Radiology Data Radiology results: report reviewed, image reviewed Two-view x-ray of the chest is obtained. Report was reviewed in its entirety. Impression by Dr. Faria shows heart and mediastinum are normal. Lungs are clear. Diaphragm is normal. Bony thorax appears normal. Disposition Clinical Impression: Shortness of breath Disposition: HOME SELF-CARE Condition: Good Instructions (If sedation given, give patient instructions): Shortness of Breath (ED) Additional Instructions: Follow-up with your primary care physician for recheck in 1-2 days. Return to the emergency department immediately for any new, worsening, or concerning symptoms. Is patient prescribed a controlled substance at d/c from ED?: No Referrals: Flash Schofield MD [Primary Care Provider] - 1-2 days Time of Disposition: 02:25
[2020-05-13] MEDS ORDERED: SODIUM CHLORIDE 0.9% 1,000 ML IV ONE (01:10)
[2020-05-13 01:21] VITALS: RESP 18
[2020-05-13 02:45] VITALS: BP 99/65; PULSE 78
== END 2020-05-13 02:45 | disposition home or self-care (01) ==
LOC: EC 22:08
DX: R06.02 Shortness of breath (principal); R07.9 Chest pain, unspecified; J44.9 Chronic obstructive pulmonary disease, unspecified; I25.2 Old myocardial infarction; F41.9 Anxiety disorder, unspecified; F31.9 Bipolar disorder, unspecified; F17.200 Nicotine dependence, unspecified, uncomplicated; Z91.038 Other insect allergy status; Z91.018 Allergy to other foods; Z86.73 Personal history of transient ischemic attack (TIA), and cerebral infarction without residual deficits
CPT/HCPCS: 36415; 71046; 80053; 83605; 83735; 84484; 85025; 85610; 85730; 93005; 94640; 96361; 96374; 99285

== ENCOUNTER 2020-09-11 22:38 | Emergency (ER) | payer OTHER ==
[2020-09-11 22:42] VITALS: BP 104/60; PULSE 65; RESP 20; TEMP 97
[2020-09-11] MEDS ORDERED: IBUPROFEN 600 MG STARTER PACK 4 TAB BTL PO STA (23:01)
[2020-09-11] MEDS ORDERED: ACET/COD 300 MG/30 MG STARTER PACK 6 TAB BTL PO STA (23:01)
[2020-09-11] MEDS ORDERED: AMOXIC-POT CLAV 875MG STARTER PACK 2 TAB BTL PO STA (23:02)
[2020-09-11] MEDS ORDERED: KETOROLAC 15 MG/ML 1 ML VIAL IM STA (23:02)
--- NOTE | 2020-09-11 23:06 | ED ---
General Adult HPI - General Chief complaint: Dental/Oral Stated complaint: Tooth pain Time Seen by Provider: 09/11/20 22:51 Source: patient Mode of arrival: ambulatory Limitations: no limitations - History of Present Illness Initial comments: 50-year-old male presents to emergency Department with complaints of dental pain. States pain began yesterday but has not taken anything to treat it. Is not established with a dentist. Denies any trismus or difficulty swallowing. He denies fever, chills, or vomiting. Patient denies any recent rash, cough, emeli rtness of breath, chest pain, abdominal pain, diarrhea, constipation, back pain, numbness, tingling, dizziness, weakness, hematuria, dysuria, urinary urgency, urinary frequency, headache, visual changes, or any other complaints. - Related Data Home Medications Medication Instructions Recorded Confirmed ALPRAZolam [Xanax] 1 mg PO DAILY PRN 05/12/20 05/12/20 Albuterol Inhaler [Ventolin Hfa 2 puff INHALATION RT-Q6H PRN 05/12/20 05/12/20 Inhaler] Previous Rx's Medication Instructions Recorded Amoxic-Pot Clav 875-125Mg 1 tab PO Q12HR #20 tablet 09/11/20 [Augmentin 875-125] Ibuprofen [Motrin] 600 mg PO Q6HR PRN #20 tab 09/11/20 Allergies Allergy/AdvReac Type Severity Reaction Status Date / Time horseradish Allergy Anaphylaxis Verified 09/11/20 22:42 venom-wasp Allergy Anaphylaxis Verified 09/11/20 22:42 Review of Systems ROS Statement: Those systems with pertinent positive or pertinent negative responses have been documented in the HPI. ROS Other: All systems not noted in ROS Statement are negative. 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 Past Anesthesia/Blood Transfusion Reactions: Unable to Obtain Additional Past Anesthesia/Blood Transfusion Reaction / Comment(s): Pt has never had general/spinal anesthesia Past Psychological History: Anxiety, Bipolar, Depression, Schizoaffective Disorder, Schizophrenia Smoking Status: Current every day smoker Past Alcohol Use History: None Reported Past Drug Use History: Marijuana - Past Family History Mother Family Medical History: CVA/TIA, Diabetes Mellitus, Myocardial Infarction ([place]) Father Additional Family Medical History / Comment(s): Emphesema General Exam Limitations: no limitations (Alt, well-nourished male in no acute distress. Initial temperature 97.0F, pulse 65, respirations 20, blood pressure 104/60, pulse ox 99% on room air.) General appearance: alert, in no apparent distress Head exam: Present: atraumatic, normocephalic ENT exam: Present: mucous membranes moist Expanded Teeth exam: Present: dental caries, dental tenderness # (8), gingival enlargement Respiratory exam: Present: normal lung sounds bilaterally. Absent: respiratory distress, wheezes, rales, rhonchi, stridor Cardiovascular Exam: Present: regular rate, normal rhythm, normal heart sounds. Absent: systolic murmur, diastolic murmur, rubs, gallop, clicks Neurological exam: Present: alert, oriented X3, CN II-XII intact Psychiatric exam: Present: normal affect, normal mood Course Vital Signs 09/11/20 22:41 Temperature 97.0 F L Pulse Rate 65 Respiratory 20 Rate Blood Pressure 104/60 O2 Sat by Pulse 99 Oximetry Medical Decision Making - Medical Decision Making 50-year-old male presents to Emergency Department with complaints of dental pain that is localized on the gingival border of tooth #8. Patient has very poor dentition with multiple broken teeth and dental caries. No fever or evidence of abscess. Patient prescribed antibiotic and anti-inflammatory medications. Provided dental follow up information. Return parameters discussed. Patient verbalizes understanding and agrees with this plan. Disposition Clinical Impression: Dental caries, Pain, dental Disposition: HOME SELF-CARE Condition: Good Instructions (If sedation given, give patient instructions): Toothache (ED) Additional Instructions: Take medications as prescribed. Follow-up with a dentist for further evaluation and treatment. Please follow up with the [facility] dental clinic. [facility] [place] [address]. Phone number for new patients or [phone] for existing patients. [facility]. Must pay for x-rays then services are free. Call for an appoitnment. Return to the emergency department with any new, worsening, or concerning symptoms. Prescriptions: Amoxic-Pot Clav 875-125Mg [Augmentin 875-125] 1 tab PO Q12HR #20 tablet Ibuprofen [Motrin] 600 mg PO Q6HR PRN #20 tab PRN Reason: Pain Is patient prescribed a controlled substance at d/c from ED?: No Referrals: Flash Schofield MD [Primary Care Provider] - 1-2 days Time of Disposition: 23:06
== END 2020-09-11 23:22 | disposition home or self-care (01) ==
LOC: EC 22:38
DX: K02.9 Dental caries, unspecified (principal); K08.89 Other specified disorders of teeth and supporting structures; S02.5XXA Fracture of tooth (traumatic), initial encounter for closed fracture; J44.9 Chronic obstructive pulmonary disease, unspecified; F41.9 Anxiety disorder, unspecified; F32.9 Major depressive disorder, single episode, unspecified; F25.9 Schizoaffective disorder, unspecified; I25.2 Old myocardial infarction; F17.200 Nicotine dependence, unspecified, uncomplicated; Z91.038 Other insect allergy status; Z91.018 Allergy to other foods; Z86.73 Personal history of transient ischemic attack (TIA), and cerebral infarction without residual deficits
CPT/HCPCS: 99282; 96372; J1885

== ENCOUNTER 2021-03-07 22:16 | Inpatient (IN) | payer MEDICAID, OTHER ==
[2021-03-08] MEDS ORDERED: MAGNESIUM HYDROXIDE 2,400 MG/10 ML CUP PO PRN (01:07)
[2021-03-08] MEDS ORDERED: ACETAMINOPHEN TAB 325 MG TAB PO PRN (01:07)
[2021-03-08] MEDS ORDERED: MAG HYDROX/AL HYDROX/SIMETH 30 ML CUP PO PRN (01:07)
[2021-03-08 01:10] LABS: Appearance,Urine Clear (Clear); Bilirubin,Urine Negative (Negative); Blood,Urine Negative (Negative); Color,Urine Yellow; Glucose,Urine (UA) Negative (Negative); Ketones,Urine Trace (Negative); Leukocyte Esterase,Urine Negative (Negative); Nitrite,Urine Negative (Negative); PH, Urine 5.5 (5.0-8.0); Protein,Urine Trace (Negative); Specific Gravity,Urine 1.028 (1.001-1.035)
[2021-03-08] MEDS ORDERED: LORazepam 2 MG/ML INJ IM PRN (01:11)
[2021-03-08] MEDS ORDERED: haloperidoL 5 MG TAB PO PRN (01:12)
[2021-03-08] MEDS ORDERED: HALOPERIDOL LACTATE 5 MG/ML 1 ML VIAL IM PRN (01:12)
[2021-03-08] MEDS ORDERED: ALBUTEROL HFA INHALER INHALATION PRN (01:16)
[2021-03-08 01:22] LABS: Amphetamine Screen,Urine Not Detected (NotDetected); Barbiturate Screen,Urine Not Detected (NotDetected); Benzodiazepines Screen,Urine Detected (NotDetected); Cocaine Screen,Urine Not Detected (NotDetected); Methadone Screen, Urine Not Detected (NotDetected); Opiate Screen,Urine Not Detected (NotDetected); Oxycodone Screen, Urine Not Detected (NotDetected); Phencyclidine Screen,Urine Not Detected (NotDetected); Tricyclic Antidepressant,Urine Not Detected (NotDetected); Urn Cannabinoid Scrn Detected (NotDetected)
[2021-03-08] MEDS: NICOTINE 21MG/24HR PATCH TRANSDERM SCH (08:07)
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
[2021-03-08] MEDS: hydrOXYzine pamoate 25 MG CAP PO SCH ×2 (17:39→21:44)
[2021-03-08] MEDS ORDERED: traZODone HCL 50 MG TAB PO SCH (21:00)
[2021-03-09 07:00] LABS: Basophils # (A) 0.2 k/uL (0-0.2); Basophils % (A) 1 %; Eosinophils # (A) 0.3 k/uL (0-0.7); Eosinophils % (A) 3 %; HCT 45.7 % (39.0-53.0); HGB 14.3 gm/dL (13.0-17.5); Lymphocytes # (A) 2.7 k/uL (1.0-4.8); Lymphocytes % (A) 24 %; MCH 29.3 pg (25.0-35.0); MCHC 31.3 g/dL (31.0-37.0); MCV 93.5 fL (80.0-100.0); Mean Platelet Volume 6.9; Monocytes # (A) 0.6 k/uL (0-1.0); Monocytes % (A) 6 %; Neutrophils # (A) 7.4 k/uL (1.3-7.7); Neutrophils % (A) 64 %; Platelet Count 328 k/uL (150-450); RBC 4.89 m/uL (4.30-5.90); WBC 11.6 k/uL (3.8-10.6)
[2021-03-09 07:13] LABS: ALT 15 U/L (4-49); AST 28 U/L (17-59); African American GFR (CKD) >90 (>60 ml/min/1.73 sqM); Albumin 4.2 g/dL (3.5-5.0); Alkaline Phosphatase 104 U/L (38-126); Anion Gap 7 mmol/L; Blood Urea Nitrogen 18 mg/dL (9-20); Calcium 9.8 mg/dL (8.4-10.2); Carbon Dioxide 29 mmol/L (22-30); Chloride 104 mmol/L (98-107); Cholesterol 224 mg/dL (<200); Glucose 89 mg/dL (74-99); HDL Cholesterol 47 mg/dL (40-60); LDL Cholesterol,Calculated 159 mg/dL (0-99); Non-African American GFR(CKD) >90 (>60 ml/min/1.73 sqM); Potassium 4.9 mmol/L (3.5-5.1); Sodium 140 mmol/L (137-145); Total Bilirubin 0.5 mg/dL (0.2-1.3); Total Protein 6.9 g/dL (6.3-8.2); Triglycerides 89 mg/dL (<150)
[2021-03-09] MEDS: NICOTINE 21MG/24HR PATCH TRANSDERM SCH (08:45)
[2021-03-09] MEDS: PARoxetine 10 MG TAB PO SCH (08:46)
[2021-03-09] MEDS: hydrOXYzine pamoate 25 MG CAP PO SCH ×2 (08:46→13:05)
[2021-03-09] MEDS: LORazepam 1 MG TAB PO PRN ×2 (08:47→19:38)
[2021-03-09 12:42] VITALS: BMI 14.8
[2021-03-09] MEDS ORDERED: hydrOXYzine pamoate 25 MG CAP PO PRN (13:32)
--- NOTE | 2021-03-09 13:34 | P.PN ---
Progress Note - Text Progress Note Date: 03/09/21 Interval History: Patient was seen sitting in the hallway and speaking with other patients prior to lunch today and was directable and agreeable to speak with blog writer in the office. Patient claims that he was feeling depressed and recently kicked out of his friend's house for an argument that they had. He states that he is homeless once again which has been his recent stressor. He states that he is feeling depressed and anxious and decided to come to the hospital. He claims that his mood is been gradually improving since being started on the medications. He states that last night he did not sleep well and requested it is trazodone increase. Patient was fairly preoccupied with Ativan and Xanax and Klonopin. Back Panel Padder spoke with patient about the abuse potential and tolerance along with adverse effects of these medications. He states that he has a fair appetite. At this time patient denies any suicidal or homical ideations, intent or plan. Patient denies any auditory, visual hallucinations and denies any paranoia or delusions. Patient denies any side effects from the medications and has been compliant with meds. Mental Status Exam: General Appearance: [Patient appears to be thin, older than stated age is alert, directable, and cooperative.] Behavior: [Patient is calmly seated without any agitated behavior.] Manipulative at times Speech: Patient's speech is fluent and nonpressured. Mood/Affect: Mood is improving mildly, affect is congruent and constricted. Suicidality/Homicidality: Patient denies having any suicidal or homicidal ideation intent or plan. Perceptions: Patient denies any visual hallucinations [and denies any auditory hallucinations] Though content/process: Preoccupied with his medications especially the controlled medications. Spoke about his traumas and stressors. Goal oriented. Memory and concentration: AOX3, grossly intact for the purposes of this session Judgment and insight: Improving mildly Assessment Major depression recurrent severe Generalized anxiety disorder cannabis use disorder nicotine dependence Plan: -Patient continues to meet criteria for inpatient psychiatric admission for symptom stabilization and safety. Patient has signed [adult voluntary form and] [medication consent] and was placed in patient's chart. -Medications: Increase trazodone to 100 mg daily at bedtime for insomnia/mood, continue with Paxil 30 mg daily for mood/anxiety. changed vistaril to prn dosing, tid 25 mg for anxiety -When necessary Ativan and Haldol for agitation/aggression. -NRT - [nicotine patch] -SW on board for discharge planning. Encouraged the patient to participate in milieu. Patient is homeless and will [facility] be [facility] or residential.
[2021-03-09 14:13] LABS: Hemoglobin A1C 5.4 % (4.0-6.0)
[2021-03-09] MEDS: traZODone HCL 100 MG TAB PO SCH (22:14)
--- NOTE | 2021-03-09 22:58 | CONS ---
CONSULTATION DATE OF SERVICE: 03/09/2021 CHIEF COMPLAINT: Major depression with suicidal thoughts. HISTORY OF PRESENT ILLNESS: This is another admission for this 52-year-old white male who came to the emergency room with thoughts of suicide. REVIEW OF SYSTEMS: He has had no headaches, neurologic problems, change in vision or hearing, chest pain, palpitations, hypertension, murmurs, rheumatic fever, abdominal pain, nausea, vomiting, hematemesis, melena, hematochezia, jaundice, hepatitis, hematuria, renal failure, frequency, urgency, dysuria, incontinence, diabetes, etc. Past medical history, family history, and personal and social histories are otherwise unremarkable. He is NOT ALLERGIC TO ANY MEDICATION. He has apparently been on Xanax. We have not seen him since November of 2020. He does have a history of asthma. He does smoke. PHYSICAL EXAMINATION: Blood pressure is 111/64 with a pulse of 81, respirations of 20, and he is afebrile. In general he appeared to be well developed, well nourished, in no acute distress. Skin color is normal. Skin is warm and dry. Lymph nodes are not enlarged. Head, ears, eyes, nose, mouth and throat were normal. Neck veins were not distended. Thyroid is not enlarged. Chest is clear. Cardiac exam is normal. The abdomen is soft and nontender. Extremities are normal. IMPRESSION: 1. Major depression with suicidal thoughts. 2. Asthma. PLAN: No change in treatment program. MMODL / IJN: [id number] /
[2021-03-10] MEDS: PARoxetine 10 MG TAB PO SCH (08:38)
[2021-03-10] MEDS: NICOTINE 21MG/24HR PATCH TRANSDERM SCH (08:38)
--- NOTE | 2021-03-10 10:34 | P.PN ---
Progress Note - Text Progress Note Date: 03/10/21 Interval History: Patient was seen lying down in his bed this morning was directable and agreeable to speak with marketing copywriter in the office. Patient claims that his depression and anxiety have been gradually improving. He states that he is feeling tired this morning and was not able to participate in the morning group. He claims that he is feeling tired after taking his morning medications. He states that he was able to sleep fairly last night. He claims that he feels he may be ready for discharge tomorrow. He states that he will try to go to groups later on today. He claims of a fair appetite. He appears to have mildly improving insight and judgment. Patient was less preoccupied today with the controlled medications and benzodiazepines. At this time patient denies any suicidal or homical ideations, intent or plan. Patient denies any auditory, visual hallucinations and denies any paranoia or delusions. Patient denies any side effects from the medications and has been compliant with meds. Mental Status Exam: General Appearance: Patient appears to be thin, older than stated age is alert, directable, and cooperative. Mildly improving hygiene and grooming. Behavior: Patient is calmly seated without any agitated behavior. More cooperative today Speech: Patient's speech is fluent and nonpressured. Mood/Affect: Mood is improving mildly, affect is congruent and constricted. Suicidality/Homicidality: Patient denies having any suicidal or homicidal ideation intent or plan. Perceptions: Patient denies any visual hallucinations and denies any auditory hallucinations Though content/process: Preoccupied with his medications especially the controlled medications. Spoke about his traumas and stressors. Goal oriented. Memory and concentration: AOX3, grossly intact for the purposes of this session Judgment and insight: Improving mildly Assessment Major depression recurrent severe Generalized anxiety disorder cannabis use disorder nicotine dependence Plan: -Patient continues to meet criteria for inpatient psychiatric admission for symptom stabilization and safety. Patient has signed adult voluntary form and medication consent and was placed in patient's chart. -Medications: Continue with trazodone to 100 mg daily at bedtime for insomnia/mood, changed Paxil 30 mg to qhs dosing for mood/anxiety. continue with vistaril to prn dosing, tid 25 mg for anxiety -When necessary Ativan and Haldol for agitation/aggression. -NRT - nicotine patch -SW on board for discharge planning. Encouraged the patient to participate in milieu. Patient is homeless and will either be [facility] to [facility] or [facility] liekly discharge tomorrow.
[2021-03-10] MEDS ORDERED: PARoxetine 10 MG TAB PO SCH (21:00)
[2021-03-10] MEDS: traZODone HCL 100 MG TAB PO SCH (21:07)
[2021-03-10] MEDS: LORazepam 1 MG TAB PO PRN (21:40)
[2021-03-11 07:03] VITALS: BP 87/56; PULSE 69; RESP 16; TEMP 98.1
[2021-03-11] MEDS: NICOTINE 21MG/24HR PATCH TRANSDERM SCH (08:48)
--- NOTE | 2021-03-11 10:05 | P.DS ---
Providers Date of admission: 03/08/21 00:36 Expected date of discharge: 03/11/21 Attending physician: Ga Garcia MD Consults: 03/08/21 01:07 Consult Physician Routine Consulting Provider: Flash Schofield Consult Reason/Comments: h and p Do you want consulting provider notified?: Yes, Notify in am Primary care physician: Flash Schofield - Discharge Diagnosis(es) (1) Major depressive disorder, recurrent Current Visit: Yes Status: Acute Priority: High (2) Generalized anxiety disorder Current Visit: Yes Status: Acute Priority: Medium (3) Cannabis use disorder, mild, abuse Current Visit: Yes Status: Acute Priority: Low (4) Nicotine dependence Current Visit: Yes Status: Acute Priority: Low Hospital Course: Admission HPI: Admission note was completed by Dr. Elliott "This patient was admitted last night because of suicidal thoughts. He stated he was a contemplating suicide with 15 pills of Percocet that he planned to take all at one time. This patient told me that he is depressed and that he has always suffered from depression for as long as he can think. He stated that that he has been diagnosed with bipolar disorder. He stated that that he has attempted suicide by jumping in front of the running police car at least one time in the past. He stated that he also suffers from severe anxiety and starts to have palpitations, shortness of breath and he has a hard time sleeping. He stated he was also diagnosed with 3 strokes a few years back." Hospital course: Upon admission to the unit patient was initially depressed and suicidal. Patient was however directable and agreeable to commence treatment and signed adult voluntary form. Patient got along well with other patients on the unit and followed unit protocol. Patient was compliant with the medications and denied any side effects throughout hospital course. Patient was started on trazodone and titrate up to dose 100 mg daily at bedtime for insomnia/mood, Paxil titrated up to dose of 30 mg daily at bedtime for mood/anxiety, Vistaril when necessary for anxiety. Patient spoke of his stressors and engaged in therapy both group and individual. Patient was also seen by medical team for history and physical exam. Throughout the course of the hospitalization patient gradually improved with regards to mood, anxiety, sleep and became more future oriented with improved insight and judgment. On the day of discharge patient denied any suicidal or homicidal ideations intent or plan denied any auditory or visual hallucinations. Patient endorsed wanting to live for his health and his future. The patient denied any access to guns or weapons. Patient denied any paranoia and did not endorse any delusions. Patient does have a significant history of substance abuse and was counseled on abstaining from all substances including alcohol and marijuana. Patient was offered however declined inpatient substance- abuse rehab. Patient elected to do outpatient substance use treatment program through [facility]. Patient was also counseled on the medications and need for regular compliance and was encouraged to follow-up with their outpatient appointment for mental health and also for primary care. Patient will be discharged to the skilled nursing today as he is currently homeless. Mental status exam: General Appearance: Patient appears to be thin, stated age is alert, pleasant, and cooperative. Patient is in no acute distress and has improved hygiene and grooming Behavior: Patient is calmly seated without any agitated behavior. Speech: Patient's speech is fluent and nonpressured. Mood/Affect: Patient reports their mood is "good", affect is congruent and euthymic. Suicidality/Homicidality: Patient denies having any suicidal or homicidal ideation intent or plan. Perceptions: Patient denies any auditory or visual hallucinations. Though content/process: There is no evidence of any delusional thought content and thought process is linear and goal-directed. Memory and concentration: AOX3, grossly intact for the purposes of this session. Can spell "WORLD" backwards correctly. Judgment and insight: improved with guarded prognosis Impression: Major depressive disorder, recurrent, severe Generalized anxiety disorder Cannabis use disorder Nicotine dependence Plan: -Continue with discharge today as patient has improved and stabilized psychiatrically and is not currently an imminent threat to himself and/or others. -Continue medications: Trazodone 100 mg daily at bedtime for insomnia/mood, Paxil 30 mg nightly for mood/anxiety, Vistaril when necessary daily for anxiety. -Patient was counseled on the need for medication compliance and appropriate follow-up at mental health and also primary care for medical issues. Patient verbalized understanding and agreed. -Social work to help coordinate and arrange for patient to go to the skilled nursing today. Social work also to arrange for patients follow up appointments with [facility] for psychiatric care along with follow up with primary care provider. -Patient counseled on abstaining from recreational drugs and marijuana and alcohol. Was informed/educated on the adverse effects on their physical and mental health. Patient verbally agreed and understood. Patient declined rehab. -Patient was instructed to return to the hospital or seek immediate medical care if their psychiatric or medical symptoms do worsen or reoccur. Allergies Allergy/AdvReac Type Severity Reaction Status Date / Time horseradish Allergy Anaphylaxis Verified 03/08/21 02:38 venom-wasp Allergy Anaphylaxis Verified 03/08/21 02:38 Laboratory Results WBC 11.6 k/uL (3.8-10.6) H 03/09/21 06:19 RBC 4.89 m/uL (4.30-5.90) 03/09/21 06:19 Hgb 14.3 gm/dL (13.0-17.5) 03/09/21 06:19 Hct 45.7 % (39.0-53.0) 03/09/21 06:19 MCV 93.5 fL (80.0-100.0) 03/09/21 06:19 MCH 29.3 pg (25.0-35.0) 03/09/21 06:19 MCHC 31.3 g/dL (31.0-37.0) 03/09/21 06:19 RDW 14.0 % (11.5-15.5) 03/09/21 06:19 Plt Count 328 k/uL (150-450) 03/09/21 06:19 MPV 6.9 03/09/21 06:19 Neutrophils % 64 % 03/09/21 06:19 Lymphocytes % 24 % 03/09/21 06:19 Monocytes % 6 % 03/09/21 06:19 Eosinophils % 3 % 03/09/21 06:19 Basophils % 1 % 03/09/21 06:19 Neutrophils # 7.4 k/uL (1.3-7.7) 03/09/21 06:19 Lymphocytes # 2.7 k/uL (1.0-4.8) 03/09/21 06:19 Monocytes # 0.6 k/uL (0-1.0) 03/09/21 06:19 Eosinophils # 0.3 k/uL (0-0.7) 03/09/21 06:19 Basophils # 0.2 k/uL (0-0.2) 03/09/21 06:19 Sodium 140 mmol/L (137-145) 03/09/21 06:19 Potassium 4.9 mmol/L (3.5-5.1) 03/09/21 06:19 Chloride 104 mmol/L (98-107) 03/09/21 06:19 Carbon Dioxide 29 mmol/L (22-30) 03/09/21 06:19 Anion Gap 7 mmol/L 03/09/21 06:19 BUN 18 mg/dL (9-20) 03/09/21 06:19 Creatinine 0.96 mg/dL (0.66-1.25) 03/09/21 06:19 Est GFR (CKD-EPI)AfAm >90 (>60 ml/min/1.73 sqM) 03/09/21 06:19 Est GFR (CKD-EPI)NonAf >90 (>60 ml/min/1.73 sqM) 03/09/21 06:19 Glucose 89 mg/dL (74-99) 03/09/21 06:[address] Glu mg/dL 108 03/09/21 06:19 Hemoglobin A1c 5.4 % (4.0-6.0) 03/09/21 06:19 Calcium 9.8 mg/dL (8.4-10.2) 03/09/21 06:19 Total Bilirubin 0.5 mg/dL (0.2-1.3) 03/09/21 06:19 AST 28 U/L (17-59) 03/09/21 06:19 ALT 15 U/L (4-49) 03/09/21 06:19 Alkaline Phosphatase 104 U/L (38-126) 03/09/21 06:19 Total Protein 6.9 g/dL (6.3-8.2) 03/09/21 06:19 Albumin 4.2 g/dL (3.5-5.0) 03/09/21 06:19 Triglycerides 89 mg/dL (<150) 03/09/21 06:19 Cholesterol 224 mg/dL (<200) H 03/09/21 06:19 LDL Cholesterol, Calc 159 mg/dL (0-99) H 03/09/21 06:19 HDL Cholesterol 47 mg/dL (40-60) 03/09/21 06:19 Urine Color Yellow 03/08/21 00:57 Urine Appearance Clear (Clear) 03/08/21 00:57 Urine pH 5.5 (5.0-8.0) 03/08/21 00:57 Ur Specific [place] 1.028 (1.001-1.035) 03/08/21 00:57 Urine Protein Trace (Negative) H 03/08/21 00:57 Urine Glucose (UA) Negative (Negative) 03/08/21 00:57 Urine Ketones Trace (Negative) H 03/08/21 00:57 Urine Blood Negative (Negative) 03/08/21 00:57 Urine Nitrite Negative (Negative) 03/08/21 00:57 Urine Bilirubin Negative (Negative) 03/08/21 00:57 Urine Urobilinogen 4.0 mg/dL (<2.0) 03/08/21 00:57 Ur Leukocyte Esterase Negative (Negative) 03/08/21 00:57 Urine Opiates Screen Not Detected (NotDetected) 03/08/21 00:57 Ur Oxycodone Screen Not Detected (NotDetected) 03/08/21 00:57 Urine Methadone Screen Not Detected (NotDetected) 03/08/21 00:57 Ur Propoxyphene Screen Not Detected (NotDetected) 03/08/21 00:57 Ur Barbiturates Screen Not Detected (NotDetected) 03/08/21 00:57 U Tricyclic Antidepress Not Detected (NotDetected) 03/08/21 00:57 Ur Phencyclidine Scrn Not Detected (NotDetected) 03/08/21 00:57 Ur Amphetamines Screen Not Detected (NotDetected) 03/08/21 00:57 U Methamphetamines Scrn Not Detected (NotDetected) 03/08/21 00:57 U Benzodiazepines Scrn Detected (NotDetected) H 03/08/21 00:57 Urine Cocaine Screen Not Detected (NotDetected) 03/08/21 00:57 U Marijuana (THC) Screen Detected (NotDetected) H 03/08/21 00:57 Coronavirus (PCR) Not Detected (Not Detectd) 03/08/21 00:57 Vital Signs Temp 98.1 F 03/11/21 06:33 Pulse 69 03/11/21 06:33 Resp 16 03/11/21 06:33 BP 87/56 03/11/21 06:33 Pulse Ox 95 03/10/21 15:19 Patient Condition at Discharge: Stable Plan - Discharge Summary Discharge Rx Participant: No New Discharge Prescriptions: New Nicotine 21Mg/24Hr Patch [Habitrol] 1 patch TRANSDERM DAILY 14 Days patch PARoxetine [Paxil] 30 mg PO HS 30 Days tab hydrOXYzine pamoate [Vistaril] 25 mg PO DAILY PRN 30 Days cap PRN Reason: Anxiety traZODone HCL [Desyrel] 100 mg PO HS 30 Days tab Acetaminophen Tab [Tylenol] 650 mg PO Q4HR PRN tab PRN Reason: Pain/Discomfort Continue Albuterol Inhaler [Ventolin Hfa Inhaler] 2 puff INHALATION RT-Q6H PRN PRN Reason: Shortness Of Breath Discontinued ALPRAZolam [Xanax] 1 mg PO DAILY PRN PRN Reason: Anxiety Amoxic-Pot Clav 875-125Mg [Augmentin 875-125] 1 tab PO Q12HR #20 tablet Ibuprofen [Motrin] 600 mg PO Q6HR PRN #20 tab PRN Reason: Pain Discharge Medication List Albuterol Inhaler [Ventolin Hfa Inhaler] 2 puff INHALATION RT-Q6H PRN 05/12/20 [History] Acetaminophen Tab [Tylenol] 650 mg PO Q4HR PRN tab 03/11/21 [Rx] Nicotine 21Mg/24Hr Patch [Habitrol] 1 patch TRANSDERM DAILY 14 Days patch 03/11/21 [Rx] PARoxetine [Paxil] 30 mg PO HS 30 Days tab 03/11/21 [Rx] hydrOXYzine pamoate [Vistaril] 25 mg PO DAILY PRN 30 Days cap 03/11/21 [Rx] traZODone HCL [Desyrel] 100 mg PO HS 30 Days tab 03/11/21 [Rx] Follow up Appointment(s)/Referral(s): Flash Schofield MD [Primary Care Provider] - 1 Week Activity/Diet/Wound Care/Special Instructions: Activity and diet as tolerated. Avoid the use of street drugs and alcohol. Take all medications as prescribed. When you are in need of refills on your medications please contact your medical provider and/or outpatient psychiatrist to have this done. Please go to scheduled outpatient appointment for aftercare treatment. If symptoms return or become worse, call the crisis line at and/or go to the nearest emergency room for evaluation. Discharge Disposition: OTHER INSTITUTION NOT DEFINED
== END 2021-03-11 12:04 | disposition home or self-care (01) | DRG 885 ==
LOC: EC 22:16 → 3MHU 03-08 00:36
PROVIDERS: ADMIT Psychiatry & Neurology Psychiatry; ATTEND Psychiatry & Neurology Psychiatry
DX: F33.9 Major depressive disorder, recurrent, unspecified (principal); R45.851 Suicidal ideations; G47.00 Insomnia, unspecified; F41.1 Generalized anxiety disorder; F31.9 Bipolar disorder, unspecified; F17.200 Nicotine dependence, unspecified, uncomplicated; F12.10 Cannabis abuse, uncomplicated; J45.909 Unspecified asthma, uncomplicated; Z59.0 Homelessness; Z79.899 Other long term (current) drug therapy; Z82.5 Family history of asthma and other chronic lower respiratory diseases; Z86.73 Personal history of transient ischemic attack (TIA), and cerebral infarction without residual deficits; Z20.822 Contact with and (suspected) exposure to COVID-19
CPT/HCPCS: 80053; 80061; 80306; 81003; 82075; 83036; 85025; 87635

== ENCOUNTER 2021-03-17 01:54 | Emergency (ER) | payer OTHER ==
[2021-03-17 02:00] VITALS: BP 114/68; PULSE 67; RESP 20; TEMP 97
--- NOTE | 2021-03-17 06:19 | ED ---
SOB HPI - General Chief Complaint: Shortness of Breath Stated Complaint: SOB Source: patient Mode of arrival: ambulatory Limitations: no limitations - Related Data Home Medications Medication Instructions Recorded Confirmed Albuterol Inhaler [Ventolin Hfa 2 puff INHALATION RT-Q6H PRN 05/12/20 03/08/21 Inhaler] Previous Rx's Medication Instructions Recorded Acetaminophen Tab [Tylenol] 650 mg PO Q4HR PRN tab 03/11/21 Nicotine 21Mg/24Hr Patch [Habitrol] 1 patch TRANSDERM DAILY 14 Days 03/11/21 patch PARoxetine [Paxil] 30 mg PO HS 30 Days tab 03/11/21 hydrOXYzine pamoate [Vistaril] 25 mg PO DAILY PRN 30 Days cap 03/11/21 traZODone HCL [Desyrel] 100 mg PO HS 30 Days tab 03/11/21 Allergies Allergy/AdvReac Type Severity Reaction Status Date / Time horseradish Allergy Anaphylaxis Verified 03/17/21 02:00 venom-wasp Allergy Anaphylaxis Verified 03/17/21 02:00 Review of Systems ROS Statement: Those systems with pertinent positive or pertinent negative responses have been documented in the HPI. ROS Other: All systems not noted in ROS Statement are negative. 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 Past Anesthesia/Blood Transfusion Reactions: Unable to Obtain Additional Past Anesthesia/Blood Transfusion Reaction / Comment(s): Pt has never had general/spinal anesthesia Past Psychological History: Anxiety, Bipolar, Depression, Schizoaffective Disorder, Schizophrenia Smoking Status: Current every day smoker Past Alcohol Use History: None Reported Past Drug Use History: Marijuana - Past Family History Mother Family Medical History: CVA/TIA, Diabetes Mellitus, Myocardial Infarction ([place]) Father Additional Family Medical History / Comment(s): Emphesema General Exam Limitations: no limitations Course Vital Signs 03/17/21 01:56 Temperature 97 F L Pulse Rate 67 Respiratory 20 Rate Blood Pressure 114/68 O2 Sat by Pulse 99 Oximetry Disposition Clinical Impression: Allergic reaction Disposition: HOME SELF-CARE Condition: Good Instructions (If sedation given, give patient instructions): General Allergic Reaction (ED) Is patient prescribed a controlled substance at d/c from ED?: No Referrals: Flash Schofield MD [Primary Care Provider] - 1-2 days
== END 2021-03-17 06:35 | disposition home or self-care (01) ==
LOC: EC 01:54
DX: T78.40XA Allergy, unspecified, initial encounter (principal); J44.9 Chronic obstructive pulmonary disease, unspecified; F32.9 Major depressive disorder, single episode, unspecified; F25.9 Schizoaffective disorder, unspecified; F17.200 Nicotine dependence, unspecified, uncomplicated; F12.90 Cannabis use, unspecified, uncomplicated; Z86.73 Personal history of transient ischemic attack (TIA), and cerebral infarction without residual deficits; Z95.5 Presence of coronary angioplasty implant and graft
CPT/HCPCS: 99284

== ENCOUNTER 2021-03-21 03:34 | Emergency (ER) | payer OTHER ==
[2021-03-21 03:38] VITALS: TEMP 97.5
--- NOTE | 2021-03-21 06:51 | ED ---
Psych HPI - General Chief Complaint: Psychiatric Symptoms Stated Complaint: Mental health Time Seen by Provider: 03/21/21 03:42 Source: patient Mode of arrival: ambulatory - History of Present Illness MD Complaint: feels depressed -: hour(s) Associated Psychiatric Symptoms: depression History of same: No Quality: constant Improves With: none Worsens With: none - Related Data Home Medications Medication Instructions Recorded Confirmed Albuterol Inhaler [Ventolin Hfa 2 puff INHALATION RT-Q6H PRN 05/12/20 03/08/21 Inhaler] Previous Rx's Medication Instructions Recorded Acetaminophen Tab [Tylenol] 650 mg PO Q4HR PRN tab 03/11/21 Nicotine 21Mg/24Hr Patch [Habitrol] 1 patch TRANSDERM DAILY 14 Days 03/11/21 patch PARoxetine [Paxil] 30 mg PO HS 30 Days tab 03/11/21 hydrOXYzine pamoate [Vistaril] 25 mg PO DAILY PRN 30 Days cap 03/11/21 traZODone HCL [Desyrel] 100 mg PO HS 30 Days tab 03/11/21 Allergies Allergy/AdvReac Type Severity Reaction Status Date / Time horseradish Allergy Anaphylaxis Verified 03/21/21 03:39 venom-wasp Allergy Anaphylaxis Verified 03/21/21 03:39 Review of Systems ROS Statement: Those systems with pertinent positive or pertinent negative responses have been documented in the HPI. ROS Other: All systems not noted in ROS Statement are negative. Constitutional: Denies: fever, chills, weakness Respiratory: Denies: cough, dyspnea Cardiovascular: Denies: chest pain, palpitations, edema Gastrointestinal: Denies: abdominal pain, vomiting, diarrhea Genitourinary: Denies: dysuria, hematuria Musculoskeletal: Denies: back pain Skin: Denies: rash Neurological: Denies: headache, weakness Psychiatric: Reports: as per HPI, anxiety, depression, auditory hallucinations. 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 Past Anesthesia/Blood Transfusion Reactions: Unable to Obtain Additional Past Anesthesia/Blood Transfusion Reaction / Comment(s): Pt has never had general/spinal anesthesia Past Psychological History: Anxiety, Bipolar, Depression, Schizoaffective Disorder, Schizophrenia Smoking Status: Current every day smoker Past Alcohol Use History: None Reported Past Drug Use History: Marijuana - Past Family History Mother Family Medical History: CVA/TIA, Diabetes Mellitus, Myocardial Infarction ([place]) Father Additional Family Medical History / Comment(s): [place] General Exam General appearance: alert, in no apparent distress Head exam: Present: atraumatic, normocephalic Eye exam: Present: normal appearance. Absent: scleral icterus, conjunctival injection ENT exam: Present: normal oropharynx Neck exam: Present: normal inspection Respiratory exam: Present: normal lung sounds bilaterally. Absent: respiratory distress, wheezes, rales, rhonchi, stridor Cardiovascular Exam: Present: regular rate, normal rhythm, normal heart sounds. Absent: systolic murmur, diastolic murmur, rubs, gallop GI/Abdominal exam: Present: soft. Absent: distended, tenderness, guarding, rebound, rigid, mass Extremities exam: Present: normal inspection, normal capillary refill. Absent: pedal edema, calf tenderness Back exam: Present: normal inspection Neurological exam: Present: alert Psychiatric exam: Present: depressed. Absent: agitated, anxious, flat affect, manic, homicidal ideation, suicidal ideation Skin exam: Present: warm, dry, intact, normal color. Absent: rash Course Vital Signs 03/21/21 03:35 Temperature 97.5 F L Pulse Rate 70 Respiratory 19 Rate Blood Pressure 125/74 O2 Sat by Pulse 100 Oximetry Disposition Clinical Impression: Mood disorder Disposition: HOME SELF-CARE Condition: Fair Instructions (If sedation given, give patient instructions): Mood Disorders (ED) Is patient prescribed a controlled substance at d/c from ED?: No Referrals: Flash Schofield MD [Primary Care Provider] - 1-2 days
[2021-03-21 06:58] VITALS: BP 118/68; PULSE 65; RESP 16
== END 2021-03-21 07:02 | disposition home or self-care (01) ==
LOC: EC 03:34
DX: F39 Unspecified mood [affective] disorder (principal); F32.9 Major depressive disorder, single episode, unspecified; J44.9 Chronic obstructive pulmonary disease, unspecified; F41.9 Anxiety disorder, unspecified; F20.9 Schizophrenia, unspecified; F17.200 Nicotine dependence, unspecified, uncomplicated; F12.90 Cannabis use, unspecified, uncomplicated; Z86.73 Personal history of transient ischemic attack (TIA), and cerebral infarction without residual deficits; Z79.51 Long term (current) use of inhaled steroids
CPT/HCPCS: 99283

== ENCOUNTER 2021-03-26 23:16 | Emergency (ER) | payer OTHER ==
[2021-03-26 23:20] VITALS: TEMP 97.7
[2021-03-27] MEDS: ASPIRIN 81 MG PO STA (00:38)
[2021-03-27 00:59] LABS: Basophils # (A) 0.1 k/uL (0-0.2); Basophils % (A) 1 %; Eosinophils # (A) 0.4 k/uL (0-0.7); Eosinophils % (A) 3 %; HCT 41.5 % (39.0-53.0); HGB 13.4 gm/dL (13.0-17.5); Lymphocytes # (A) 2.9 k/uL (1.0-4.8); Lymphocytes % (A) 25 %; MCH 29.7 pg (25.0-35.0); MCHC 32.3 g/dL (31.0-37.0); MCV 91.9 fL (80.0-100.0); Mean Platelet Volume 6.7; Monocytes # (A) 0.6 k/uL (0-1.0); Monocytes % (A) 6 %; Neutrophils # (A) 7.2 k/uL (1.3-7.7); Neutrophils % (A) 63 %; Platelet Count 376 k/uL (150-450); RBC 4.51 m/uL (4.30-5.90); RDW 13.5 % (11.5-15.5); WBC 11.3 k/uL (3.8-10.6)
[2021-03-27 01:15] LABS: ALT 18 U/L (4-49); AST 26 U/L (17-59); African American GFR (CKD) >90 (>60 ml/min/1.73 sqM); Albumin 4.2 g/dL (3.5-5.0); Alkaline Phosphatase 94 U/L (38-126); Anion Gap 7 mmol/L; Blood Urea Nitrogen 12 mg/dL (9-20); Calcium 9.7 mg/dL (8.4-10.2); Carbon Dioxide 27 mmol/L (22-30); Chloride 104 mmol/L (98-107); Glucose 96 mg/dL (74-99); Magnesium 1.9 mg/dL (1.6-2.3); Non-African American GFR(CKD) >90 (>60 ml/min/1.73 sqM); Sodium 138 mmol/L (137-145); Total Bilirubin 0.1 mg/dL (0.2-1.3); Total Protein 6.5 g/dL (6.3-8.2)
[2021-03-27 01:21] LABS: INR 0.9 (<1.2); Partial Thromboplastin Time 23.9 sec (22.0-30.0); Prothrombin Time 9.9 sec (9.0-12.0)
--- NOTE | 2021-03-27 02:17 | XR ---
EXAM: XR Chest, 1 View CLINICAL HISTORY: ITS.REASON XR Reason: Chest Pain TECHNIQUE: Frontal view of the chest. COMPARISON: Chest x-ray dated 05/13/2020 FINDINGS: Lungs: Hyperinflated lungs suggesting COPD. Pleural space: Unremarkable. Heart: Unremarkable. Mediastinum: Unremarkable. Bones/joints: Unremarkable. IMPRESSION: No acute findings in the chest.
--- NOTE | 2021-03-27 02:19 | ED ---
General Adult HPI - General Chief complaint: Chest Pain Stated complaint: Chest Pain Time Seen by Provider: 03/26/21 23:43 Source: patient Mode of arrival: wheelchair Limitations: no limitations - History of Present Illness Initial comments: 51-year-old male patient presents to the emergency department today for evaluation of chest pain. Patient states pain is left-sided and sharp. States it has resolved at this time. States it lasted about an hour. States that worsened with walking. Denies any shortness of breath. Denies any radiation of the pain through to the back. Denies nausea or vomiting. Denies any leg swelling or calf tenderness. States he has had similar chest pain in the past. No history of [place] or stents. Patient denies any recent rash, fever, chills, cough, abdominal pain, diarrhea, constipation, back pain, numbness, tingling, dizziness, weakness, hematuria, dysuria, urinary urgency, urinary frequency, headache, visual changes, or any other complaints. - Related Data Home Medications Medication Instructions Recorded Confirmed Albuterol Inhaler [Ventolin Hfa 2 puff INHALATION RT-Q6H PRN 05/12/20 03/08/21 Inhaler] Previous Rx's Medication Instructions Recorded Acetaminophen Tab [Tylenol] 650 mg PO Q4HR PRN tab 03/11/21 Nicotine 21Mg/24Hr Patch [Habitrol] 1 patch TRANSDERM DAILY 14 Days 03/11/21 patch PARoxetine [Paxil] 30 mg PO HS 30 Days tab 03/11/21 hydrOXYzine pamoate [Vistaril] 25 mg PO DAILY PRN 30 Days cap 03/11/21 traZODone HCL [Desyrel] 100 mg PO HS 30 Days tab 03/11/21 Allergies Allergy/AdvReac Type Severity Reaction Status Date / Time horseradish Allergy Anaphylaxis Verified 03/26/21 23:20 venom-wasp Allergy Anaphylaxis Verified 03/26/21 23:20 Review of Systems ROS Statement: Those systems with pertinent positive or pertinent negative responses have been documented in the HPI. ROS Other: All systems not noted in ROS Statement are negative. 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 Past Anesthesia/Blood Transfusion Reactions: Unable to Obtain Additional Past Anesthesia/Blood Transfusion Reaction / Comment(s): Pt has never had general/spinal anesthesia Past Psychological History: Anxiety, Bipolar, Depression, Schizoaffective Disorder, Schizophrenia Smoking Status: Current every day smoker Past Alcohol Use History: None Reported Past Drug Use History: Marijuana - Past Family History Mother Family Medical History: CVA/TIA, Diabetes Mellitus, Myocardial Infarction ([place]) Father Additional Family Medical History / Comment(s): [place] General Exam Limitations: no limitations General appearance: alert, in no apparent distress, other (Physical well- developed, well-nourished adult male patient in no acute distress. Vital signs upon presentation temperature 97.7F, pulse 60, respirations 20, blood pressure 136/77) ENT exam: Present: normal exam, normal oropharynx, mucous membranes moist Respiratory exam: Present: normal lung sounds bilaterally. Absent: respiratory distress, wheezes, rales, rhonchi, stridor Cardiovascular Exam: Present: regular rate, normal rhythm, normal heart sounds. Absent: systolic murmur, diastolic murmur, rubs, gallop, clicks GI/Abdominal exam: Present: soft, normal bowel sounds. Absent: distended, tenderness, guarding, rebound, rigid Neurological exam: Present: alert, oriented X3, CN II-XII intact Psychiatric exam: Present: normal affect, normal mood Skin exam: Present: warm, dry, intact, normal color. Absent: rash Course Vital Signs 03/26/21 03/27/21 23:17 02:29 Temperature 97.7 F Pulse Rate 60 71 Respiratory 20 18 Rate Blood Pressure 136/77 133/77 O2 Sat by Pulse 98 Oximetry EKG Findings - EKG Comments: EKG Findings:: EKG obtained at 2332 shows normal sinus rhythm. Ventricular rate is 81, OK interval 132, QRS duration 92, QT 378, QTC 439. No evidence for ST elevation or depression. Medical Decision Making - Medical Decision Making 51-year-old male patient presented for evaluation of chest pain. Physical examination is unremarkable. Lungs are clear to auscultation with good air movement. Chest pain has resolved. Labs reviewed and are unremarkable. Troponin is negative. EKG shows no ST elevation or depression. Upon reevaluation patient resting comfortable in bed. Did discuss results with him. He'll be discharged follow up with his primary care physician for recheck in 1- 2 days. Return parameters discussed in detail. He verbalizes understanding and agrees with this plan. Case discussed with my attending Dr. Krishna. - Lab Data Result diagrams: 03/27/21 00:55 03/27/21 00:55 Lab Results 03/27/21 03/27/21 03/27/21 Range/Units 00:55 00:55 00:55 WBC 11.3 H (3.8-10.6) k/uL RBC 4.51 (4.30-5.90) m/uL Hgb 13.4 (13.0-17.5) gm/dL Hct 41.5 (39.0-53.0) % MCV 91.9 (80.0-100.0) fL MCH 29.7 (25.0-35.0) pg MCHC 32.3 (31.0-37.0) g/dL RDW 13.5 (11.5-15.5) % Plt Count 376 (150-450) k/uL MPV 6.7 Neutrophils % 63 % Lymphocytes % 25 % Monocytes % 6 % Eosinophils % 3 % Basophils % 1 % Neutrophils # 7.2 (1.3-7.7) k/uL Lymphocytes # 2.9 (1.0-4.8) k/uL Monocytes # 0.6 (0-1.0) k/uL Eosinophils # 0.4 (0-0.7) k/uL Basophils # 0.1 (0-0.2) k/uL PT 9.9 (9.0-12.0) sec INR 0.9 (<1.2) APTT 23.9 (22.0-30.0) sec Sodium 138 (137-145) mmol/L Potassium 4.0 (3.5-5.1) mmol/L Chloride 104 (98-107) mmol/L Carbon Dioxide 27 (22-30) mmol/L Anion Gap 7 mmol/L BUN 12 (9-20) mg/dL Creatinine 0.86 (0.66-1.25) mg/dL Est GFR (CKD-EPI)AfAm >90 (>60 ml/min/1.73 sqM) Est GFR (CKD-EPI)NonAf >90 (>60 ml/min/1.73 sqM) Glucose 96 (74-99) mg/dL Calcium 9.7 (8.4-10.2) mg/dL Magnesium 1.9 (1.6-2.3) mg/dL Total Bilirubin 0.1 L (0.2-1.3) mg/dL AST 26 (17-59) U/L ALT 18 (4-49) U/L Alkaline Phosphatase 94 (38-126) U/L Troponin I (0.000-0.034) ng/mL Total Protein 6.5 (6.3-8.2) g/dL Albumin 4.2 (3.5-5.0) g/dL 03/27/21 Range/Units 00:55 WBC (3.8-10.6) k/uL RBC (4.30-5.90) m/uL Hgb (13.0-17.5) gm/dL Hct (39.0-53.0) % MCV (80.0-100.0) fL MCH (25.0-35.0) pg MCHC (31.0-37.0) g/dL RDW (11.5-15.5) % Plt Count (150-450) k/uL MPV Neutrophils % % Lymphocytes % % Monocytes % % Eosinophils % % Basophils % % Neutrophils # (1.3-7.7) k/uL Lymphocytes # (1.0-4.8) k/uL Monocytes # (0-1.0) k/uL Eosinophils # (0-0.7) k/uL Basophils # (0-0.2) k/uL PT (9.0-12.0) sec INR (<1.2) APTT (22.0-30.0) sec Sodium (137-145) mmol/L Potassium (3.5-5.1) mmol/L Chloride (98-107) mmol/L Carbon Dioxide (22-30) mmol/L Anion Gap mmol/L BUN (9-20) mg/dL Creatinine (0.66-1.25) mg/dL Est GFR (CKD-EPI)AfAm (>60 ml/min/1.73 sqM) Est GFR (CKD-EPI)NonAf (>60 ml/min/1.73 sqM) Glucose (74-99) mg/dL Calcium (8.4-10.2) mg/dL Magnesium (1.6-2.3) mg/dL Total Bilirubin (0.2-1.3) mg/dL AST (17-59) U/L ALT (4-49) U/L Alkaline Phosphatase (38-126) U/L Troponin I <0.012 (0.000-0.034) ng/mL Total Protein (6.3-8.2) g/dL Albumin (3.5-5.0) g/dL - Radiology Data Radiology results: report reviewed, image reviewed One view x-ray of the chest is obtained. Report is reviewed in its entirety. Impression by Dr. Salcido shows no acute findings on the chest. Disposition Clinical Impression: Chest pain Disposition: HOME SELF-CARE Condition: Good Instructions (If sedation given, give patient instructions): Chest Pain (ED) Additional Instructions: Follow-up through primary care physician for recheck in 1-2 days. Discussed possible referral to cardiology and outpatient stress testing. Return for any new, worsening, or concerning symptoms. Is patient prescribed a controlled substance at d/c from ED?: No Referrals: Flash Schofield MD [Primary Care Provider] - 1-2 days Time of Disposition: 02:19
[2021-03-27 02:34] VITALS: BP 133/77; PULSE 71; RESP 18
== END 2021-03-27 05:59 | disposition home or self-care (01) ==
LOC: EC 23:16
DX: R07.9 Chest pain, unspecified (principal); J44.9 Chronic obstructive pulmonary disease, unspecified; F32.9 Major depressive disorder, single episode, unspecified; F25.9 Schizoaffective disorder, unspecified; F17.200 Nicotine dependence, unspecified, uncomplicated; F12.90 Cannabis use, unspecified, uncomplicated; F41.9 Anxiety disorder, unspecified; Z86.73 Personal history of transient ischemic attack (TIA), and cerebral infarction without residual deficits; Z95.5 Presence of coronary angioplasty implant and graft
CPT/HCPCS: 36415; 71046; 80053; 83735; 84484; 85025; 85610; 85730; 93005; 99285

== ENCOUNTER 2021-03-28 23:17 | Emergency (ER) | payer OTHER ==
[2021-03-28 23:34] VITALS: BP 103/72; PULSE 62; RESP 20; TEMP 98.1
--- NOTE | 2021-03-29 01:13 | ED ---
General Adult HPI - General Chief complaint: Shortness of Breath Stated complaint: Dizziness, SOB Time Seen by Provider: 03/29/21 00:04 Source: patient Mode of arrival: wheelchair Limitations: no limitations - History of Present Illness Initial comments: 51-year-old male patient presents the emergency department today reporting chest pain and shortness of breath. States he is also been dizzy throughout the day today. Patient was seen and evaluated in this emergency department for the same symptoms yesterday had negative workup. Patient states that he has not had anything to eat or drink all day. He is homeless. Patient states he would feel better if he had some food. Denies any new symptoms. Patient denies any recent rash, fever, chills, cough, abdominal pain, nausea, vomiting, diarrhea, constipation, back pain, numbness, tingling, hematuria, dysuria, urinary urgency, urinary frequency, headache, visual changes, or any other complaints. - Related Data Home Medications Medication Instructions Recorded Confirmed Albuterol Inhaler [Ventolin Hfa 2 puff INHALATION RT-Q6H PRN 05/12/20 03/08/21 Inhaler] Previous Rx's Medication Instructions Recorded Acetaminophen Tab [Tylenol] 650 mg PO Q4HR PRN tab 03/11/21 Nicotine 21Mg/24Hr Patch [Habitrol] 1 patch TRANSDERM DAILY 14 Days 03/11/21 patch PARoxetine [Paxil] 30 mg PO HS 30 Days tab 03/11/21 hydrOXYzine pamoate [Vistaril] 25 mg PO DAILY PRN 30 Days cap 03/11/21 traZODone HCL [Desyrel] 100 mg PO HS 30 Days tab 03/11/21 Allergies Allergy/AdvReac Type Severity Reaction Status Date / Time horseradish Allergy Anaphylaxis Verified 03/28/21 23:34 venom-wasp Allergy Anaphylaxis Verified 03/28/21 23:34 Review of Systems ROS Statement: Those systems with pertinent positive or pertinent negative responses have been documented in the HPI. ROS Other: All systems not noted in ROS Statement are negative. 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 Past Anesthesia/Blood Transfusion Reactions: Unable to Obtain Additional Past Anesthesia/Blood Transfusion Reaction / Comment(s): Pt has never had general/spinal anesthesia Past Psychological History: Anxiety, Bipolar, Depression, Schizoaffective Disorder, Schizophrenia Smoking Status: Current every day smoker Past Alcohol Use History: None Reported Past Drug Use History: Marijuana - Past Family History Mother Family Medical History: CVA/TIA, Diabetes Mellitus, Myocardial Infarction ([place]) Father Additional Family Medical History / Comment(s): Emp[place] General Exam Limitations: no limitations General appearance: alert, in no apparent distress, other (This is a well- developed, well-nourished adult male patient in no acute distress. Vital signs upon presentation are temperature 98.1F, pulse 62, respirations 20, blood pressure 103/72, pulse ox 99% on room air.) ENT exam: Present: normal exam, normal oropharynx, mucous membranes moist Respiratory exam: Present: normal lung sounds bilaterally. Absent: respiratory distress, wheezes, rales, rhonchi, stridor Cardiovascular Exam: Present: regular rate, normal rhythm, normal heart sounds. Absent: systolic murmur, diastolic murmur, rubs, gallop, clicks GI/Abdominal exam: Present: soft, normal bowel sounds. Absent: distended, tenderness, guarding, rebound, rigid Neurological exam: Present: alert, oriented X3, CN II-XII intact Psychiatric exam: Present: normal affect, normal mood Skin exam: Present: warm, dry, intact, normal color. Absent: rash Course Vital Signs 03/28/21 23:31 Temperature 98.1 F Pulse Rate 62 Respiratory 20 Rate Blood Pressure 103/72 O2 Sat by Pulse 99 Oximetry EKG Findings - EKG Comments: EKG Findings:: EKG obtained at 2340 shows sinus bradycardia with a ventricular rate of 57, VT interval 128, QRS duration 86, QT 402, QTc 391. No evidence of ST elevation or depression. Medical Decision Making - Medical Decision Making 51-year-old male patient presented to the emergency department today reporting chest pain, shortness of breath, dizziness. Did admit that he had not eaten or drank anything all day, feels that he would feel better after having food. Physical examination is unremarkable. Lungs are clear to auscultation with good air movement. EKG was obtained and showed sinus bradycardia with no ST elevation or depression. Again he did undergo full workup yesterday for the same symptoms, was negative. Does have an appointment with his primary care physician on Tuesday. Upon reevaluation after having a meal he states he does feel better. We discharged follow-up. Return parameters were discussed in detail. He verbalizes understanding and agrees with this plan. Case discussed with my attending Dr. Bee. Disposition Clinical Impression: Dizziness, Homeless Disposition: HOME SELF-CARE Condition: Good Instructions (If sedation given, give patient instructions): Dizziness (ED) Additional Instructions: Follow-up with your doctor on Tuesday as you have planned. Return for any new, worsening, or concerning symptoms. Is patient prescribed a controlled substance at d/c from ED?: No Referrals: Flash Schofield MD [Primary Care Provider] - 1-2 days Time of Disposition: 01:13
== END 2021-03-29 01:30 | disposition home or self-care (01) ==
LOC: EC 23:17
DX: R42 Dizziness and giddiness (principal); R06.02 Shortness of breath; R07.9 Chest pain, unspecified; J44.9 Chronic obstructive pulmonary disease, unspecified; F31.9 Bipolar disorder, unspecified; F41.9 Anxiety disorder, unspecified; F25.9 Schizoaffective disorder, unspecified; I25.2 Old myocardial infarction; F17.200 Nicotine dependence, unspecified, uncomplicated; F12.90 Cannabis use, unspecified, uncomplicated; Z86.73 Personal history of transient ischemic attack (TIA), and cerebral infarction without residual deficits; Z79.51 Long term (current) use of inhaled steroids; Z59.0 Homelessness
CPT/HCPCS: 93005; 99284

== ENCOUNTER 2021-04-02 00:07 | Emergency (ER) | payer OTHER ==
[2021-04-02 00:16] VITALS: BP 122/72; PULSE 57; RESP 18; TEMP 97.5
--- NOTE | 2021-04-02 00:21 | ED ---
Psych HPI - General Chief Complaint: Psychiatric Symptoms Stated Complaint: Mental health Time Seen by Provider: 04/02/21 00:16 Source: patient, RN notes reviewed, old records reviewed Mode of arrival: ambulatory - History of Present Illness MD Complaint: feels depressed, altered mental status -: days(s) Associated Psychiatric Symptoms: depression, suicidal ideation History of same: Yes Quality: constant, intermittent Worsens With: none Context: not taking psychiatric medications, significant life stressor Associated Symptoms: denies other symptoms Treatments Prior to Arrival: placed on mental health hold - Related Data Home Medications Medication Instructions Recorded Confirmed Albuterol Inhaler [Ventolin Hfa 2 puff INHALATION RT-Q6H PRN 05/12/20 03/08/21 Inhaler] Previous Rx's Medication Instructions Recorded Acetaminophen Tab [Tylenol] 650 mg PO Q4HR PRN tab 03/11/21 Nicotine 21Mg/24Hr Patch [Habitrol] 1 patch TRANSDERM DAILY 14 Days 03/11/21 patch PARoxetine [Paxil] 30 mg PO HS 30 Days tab 03/11/21 hydrOXYzine pamoate [Vistaril] 25 mg PO DAILY PRN 30 Days cap 03/11/21 traZODone HCL [Desyrel] 100 mg PO HS 30 Days tab 03/11/21 Allergies Allergy/AdvReac Type Severity Reaction Status Date / Time horseradish Allergy Anaphylaxis Verified 04/02/21 00:13 venom-wasp Allergy Anaphylaxis Verified 04/02/21 00:13 Review of Systems ROS Statement: Those systems with pertinent positive or pertinent negative responses have been documented in the HPI. ROS Other: All systems not noted in ROS Statement are negative. 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 Past Anesthesia/Blood Transfusion Reactions: Unable to Obtain Additional Past Anesthesia/Blood Transfusion Reaction / Comment(s): Pt has never had general/spinal anesthesia Past Psychological History: Anxiety, Bipolar, Depression, Schizoaffective Disorder, Schizophrenia Smoking Status: Current every day smoker Past Alcohol Use History: Occasional Past Drug Use History: Marijuana - Past Family History Mother Family Medical History: CVA/TIA, Diabetes Mellitus, Myocardial Infarction ([place]) Father Additional Family Medical History / Comment(s): Emp[place]ma General Exam Limitations: no limitations General appearance: alert, in no apparent distress Head exam: Present: atraumatic, normocephalic, normal inspection Eye exam: Present: normal appearance, PERRL, EOMI. Absent: scleral icterus, conjunctival injection, periorbital swelling ENT exam: Present: normal exam, mucous membranes moist Neck exam: Present: normal inspection. Absent: tenderness, meningismus, lymphadenopathy Respiratory exam: Present: normal lung sounds bilaterally. Absent: respiratory distress, wheezes, rales, rhonchi, stridor Cardiovascular Exam: Present: regular rate, normal rhythm, normal heart sounds. Absent: systolic murmur, diastolic murmur, rubs, gallop, clicks GI/Abdominal exam: Present: soft, normal bowel sounds. Absent: distended, tenderness, guarding, rebound, rigid Extremities exam: Present: normal inspection, full ROM, normal capillary refill. Absent: tenderness, pedal edema, joint swelling, calf tenderness Back exam: Present: normal inspection Neurological exam: Present: alert, oriented X3, CN II-XII intact Psychiatric exam: Present: normal affect, normal mood Skin exam: Present: warm, dry, intact, normal color. Absent: rash Course Vital Signs 04/02/21 00:13 Temperature 97.5 F L Pulse Rate 57 L Respiratory 18 Rate Blood Pressure 122/72 O2 Sat by Pulse 99 Oximetry - Reevaluation(s) Reevaluation #1: 04/02/21 06:39 Medical record is reviewed Reevaluation #2: 04/02/21 06:39 Medical clear for psychiatric evaluation Medical Decision Making - Lab Data Lab Results 04/02/21 Range/Units 00:39 Urine Opiates Screen Not Detected (NotDetected) Ur Oxycodone Screen Not Detected (NotDetected) Urine Methadone Screen Not Detected (NotDetected) Ur Propoxyphene Screen Not Detected (NotDetected) Ur Barbiturates Screen Not Detected (NotDetected) U Tricyclic Antidepress Not Detected (NotDetected) Ur Phencyclidine Scrn Not Detected (NotDetected) Ur Amphetamines Screen Not Detected (NotDetected) U Methamphetamines Scrn Not Detected (NotDetected) U Benzodiazepines Scrn Not Detected (NotDetected) Urine Cocaine Screen Not Detected (NotDetected) U Marijuana (THC) Screen Detected H (NotDetected) Disposition Clinical Impression: Mood disorder Disposition: HOME SELF-CARE Condition: Fair Instructions (If sedation given, give patient instructions): Mood Disorders (ED) Is patient prescribed a controlled substance at d/c from ED?: No Referrals: Flash Schofield MD [Primary Care Provider] - 1-2 days
[2021-04-02 01:02] LABS: Amphetamine Screen,Urine Not Detected (NotDetected); Barbiturate Screen,Urine Not Detected (NotDetected); Benzodiazepines Screen,Urine Not Detected (NotDetected); Cocaine Screen,Urine Not Detected (NotDetected); Methadone Screen, Urine Not Detected (NotDetected); Opiate Screen,Urine Not Detected (NotDetected); Oxycodone Screen, Urine Not Detected (NotDetected); Phencyclidine Screen,Urine Not Detected (NotDetected); Tricyclic Antidepressant,Urine Not Detected (NotDetected); Urn Cannabinoid Scrn Detected (NotDetected)
== END 2021-04-02 07:27 | disposition home or self-care (01) ==
LOC: EC 00:07
DX: F39 Unspecified mood [affective] disorder (principal); J44.9 Chronic obstructive pulmonary disease, unspecified; F32.9 Major depressive disorder, single episode, unspecified; F25.9 Schizoaffective disorder, unspecified; F17.200 Nicotine dependence, unspecified, uncomplicated; F12.90 Cannabis use, unspecified, uncomplicated; Z95.5 Presence of coronary angioplasty implant and graft; Z86.73 Personal history of transient ischemic attack (TIA), and cerebral infarction without residual deficits
CPT/HCPCS: 80306; 82075; 99284

== ENCOUNTER 2021-04-03 22:41 | Emergency (ER) | payer OTHER ==
[2021-04-03 22:50] VITALS: TEMP 97.8
--- NOTE | 2021-04-03 23:29 | ED ---
Chest Pain HPI - General Chief Complaint: Chest Pain Stated Complaint: Chest Pain Time Seen by Provider: 04/03/21 23:16 Source: patient Mode of arrival: wheelchair Limitations: no limitations - Related Data Home Medications Medication Instructions Recorded Confirmed Albuterol Inhaler [Ventolin Hfa 2 puff INHALATION RT-Q6H PRN 05/12/20 03/08/21 Inhaler] Previous Rx's Medication Instructions Recorded Acetaminophen Tab [Tylenol] 650 mg PO Q4HR PRN tab 03/11/21 Nicotine 21Mg/24Hr Patch [Habitrol] 1 patch TRANSDERM DAILY 14 Days 03/11/21 patch PARoxetine [Paxil] 30 mg PO HS 30 Days tab 03/11/21 hydrOXYzine pamoate [Vistaril] 25 mg PO DAILY PRN 30 Days cap 03/11/21 traZODone HCL [Desyrel] 100 mg PO HS 30 Days tab 03/11/21 Allergies Allergy/AdvReac Type Severity Reaction Status Date / Time horseradish Allergy Anaphylaxis Verified 04/03/21 22:50 venom-wasp Allergy Anaphylaxis Verified 04/03/21 22:50 Review of Systems ROS Statement: Those systems with pertinent positive or pertinent negative responses have been documented in the HPI. ROS Other: All systems not noted in ROS Statement are negative. 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 Past Anesthesia/Blood Transfusion Reactions: Unable to Obtain Additional Past Anesthesia/Blood Transfusion Reaction / Comment(s): Pt has never had general/spinal anesthesia Past Psychological History: Anxiety, Bipolar, Depression, Schizoaffective Disorder, Schizophrenia Smoking Status: Current every day smoker Past Alcohol Use History: Occasional Past Drug Use History: Marijuana - Past Family History Mother Family Medical History: CVA/TIA, Diabetes Mellitus, Myocardial Infarction ([place]) Father Additional Family Medical History / Comment(s): Emphesema General Exam Limitations: no limitations Course Vital Signs 04/03/21 04/03/21 04/03/21 22:47 23:09 23:30 Temperature 97.8 F Pulse Rate 76 78 73 Pulse Rate [ Medical Detailist ] Respiratory 18 14 17 Rate Blood Pressure 111/68 102/81 O2 Sat by Pulse 96 97 Oximetry 04/03/21 04/04/21 04/04/21 23:33 00:00 00:30 Temperature Pulse Rate 95 65 Pulse Rate [ 67 Medical Detailist ] Respiratory 19 18 Rate Blood Pressure 112/74 110/72 O2 Sat by Pulse 98 96 Oximetry 04/04/21 01:00 Temperature Pulse Rate 65 Pulse Rate [ Medical Detailist ] Respiratory 16 Rate Blood Pressure 111/71 O2 Sat by Pulse 96 Oximetry Disposition Clinical Impression: COPD exacerbation Disposition: HOME SELF-CARE Condition: Good Instructions (If sedation given, give patient instructions): COPD (Chronic Ob structive Pulmonary Disease) (ED) Is patient prescribed a controlled substance at d/c from ED?: No Referrals: Flash Schofield MD [Primary Care Provider] - 1-2 days
[2021-04-03 23:42] LABS: Basophils # (A) 0.1 k/uL (0-0.2); Basophils % (A) 1 %; Eosinophils # (A) 0.4 k/uL (0-0.7); Eosinophils % (A) 3 %; HCT 38.5 % (39.0-53.0); HGB 12.1 gm/dL (13.0-17.5); Lymphocytes % (A) 25 %; MCHC 31.3 g/dL (31.0-37.0); MCV 92.5 fL (80.0-100.0); Monocytes # (A) 0.5 k/uL (0-1.0); Monocytes % (A) 4 %; Neutrophils # (A) 8.1 k/uL (1.3-7.7); Neutrophils % (A) 66 %; Platelet Count 302 k/uL (150-450); RBC 4.17 m/uL (4.30-5.90); RDW 14.1 % (11.5-15.5); WBC 12.2 k/uL (3.8-10.6)
[2021-04-03 23:47] LABS: INR 0.9 (<1.2); Partial Thromboplastin Time 23.3 sec (22.0-30.0); Prothrombin Time 9.6 sec (9.0-12.0)
[2021-04-03 23:50] LABS: ALT 13 U/L (4-49); AST 26 U/L (17-59); African American GFR (CKD) >90 (>60 ml/min/1.73 sqM); Albumin 3.6 g/dL (3.5-5.0); Alkaline Phosphatase 89 U/L (38-126); Anion Gap 7 mmol/L; Blood Urea Nitrogen 20 mg/dL (9-20); Calcium 9.4 mg/dL (8.4-10.2); Carbon Dioxide 26 mmol/L (22-30); Chloride 105 mmol/L (98-107); Glucose 112 mg/dL (74-99); Magnesium 1.9 mg/dL (1.6-2.3); Non-African American GFR(CKD) >90 (>60 ml/min/1.73 sqM); Sodium 138 mmol/L (137-145); Total Bilirubin 0.2 mg/dL (0.2-1.3); Total Protein 5.9 g/dL (6.3-8.2)
--- NOTE | 2021-04-03 23:55 | XR ---
EXAMINATION TYPE: XR chest 1V portable DATE OF EXAM: 04/03/2021 COMPARISON: 03/27/2021 HISTORY: Chest pain TECHNIQUE: Single view FINDINGS: Heart and mediastinum are normal. Lungs are clear. Diaphragm is normal. There are chest meng ds. Bony thorax is intact. IMPRESSION: Normal chest. No change.
[2021-04-04] MEDS ORDERED: ALBUTEROL NEBULIZED 2.5 MG/3 ML INHALATION STA (01:52)
[2021-04-04 02:46] VITALS: PULSE 60
[2021-04-04 02:56] VITALS: BP 110/60; RESP 10
== END 2021-04-04 03:07 | disposition home or self-care (01) ==
LOC: EC 22:41
DX: R07.9 Chest pain, unspecified (principal); J44.9 Chronic obstructive pulmonary disease, unspecified; I63.9 Cerebral infarction, unspecified; Z86.73 Personal history of transient ischemic attack (TIA), and cerebral infarction without residual deficits; F25.9 Schizoaffective disorder, unspecified; F17.200 Nicotine dependence, unspecified, uncomplicated
CPT/HCPCS: 36415; 71045; 80053; 83735; 84484; 85025; 85610; 85730; 93005; 94640; 99285

== ENCOUNTER 2021-04-07 23:54 | Emergency (ER) | payer OTHER ==
[2021-04-08 00:01] VITALS: TEMP 97.8
--- NOTE | 2021-04-08 00:19 | ED ---
Psych HPI - General Chief Complaint: Psychiatric Symptoms Stated Complaint: Anxiety Time Seen by Provider: 04/08/21 00:12 Source: patient Mode of arrival: ambulatory - Related Data Home Medications Medication Instructions Recorded Confirmed Albuterol Inhaler [Ventolin Hfa 2 puff INHALATION RT-Q6H PRN 05/12/20 03/08/21 Inhaler] Previous Rx's Medication Instructions Recorded Acetaminophen Tab [Tylenol] 650 mg PO Q4HR PRN tab 03/11/21 Nicotine 21Mg/24Hr Patch [Habitrol] 1 patch TRANSDERM DAILY 14 Days 03/11/21 patch PARoxetine [Paxil] 30 mg PO HS 30 Days tab 03/11/21 hydrOXYzine pamoate [Vistaril] 25 mg PO DAILY PRN 30 Days cap 03/11/21 traZODone HCL [Desyrel] 100 mg PO HS 30 Days tab 03/11/21 Allergies Allergy/AdvReac Type Severity Reaction Status Date / Time horseradish Allergy Anaphylaxis Verified 04/07/21 23:55 venom-wasp Allergy Anaphylaxis Verified 04/07/21 23:55 Review of Systems ROS Statement: Those systems with pertinent positive or pertinent negative responses have been documented in the HPI. ROS Other: All systems not noted in ROS Statement are negative. 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 Past Anesthesia/Blood Transfusion Reactions: Unable to Obtain Additional Past Anesthesia/Blood Transfusion Reaction / Comment(s): Pt has never had general/spinal anesthesia Past Psychological History: Anxiety, Bipolar, Depression, Schizoaffective Disorder, Schizophrenia Smoking Status: Current every day smoker Past Alcohol Use History: Occasional Past Drug Use History: Marijuana - Past Family History Mother Family Medical History: CVA/TIA, Diabetes Mellitus, Myocardial Infarction ([place]) Father Additional Family Medical History / Comment(s): Emphesema General Exam Limitations: no limitations Course Vital Signs 04/07/21 23:56 Temperature 97.8 F Pulse Rate 68 Respiratory 16 Rate Blood Pressure 122/72 O2 Sat by Pulse 98 Oximetry Medical Decision Making - Lab Data Lab Results 04/08/21 Range/Units 01:27 Urine Opiates Screen Not Detected (NotDetected) Ur Oxycodone Screen Not Detected (NotDetected) Urine Methadone Screen Not Detected (NotDetected) Ur Propoxyphene Screen Not Detected (NotDetected) Ur Barbiturates Screen Not Detected (NotDetected) U Tricyclic Antidepress Not Detected (NotDetected) Ur Phencyclidine Scrn Not Detected (NotDetected) Ur Amphetamines Screen Not Detected (NotDetected) U Methamphetamines Scrn Not Detected (NotDetected) U Benzodiazepines Scrn Not Detected (NotDetected) Urine Cocaine Screen Not Detected (NotDetected) U Marijuana (THC) Screen Detected H (NotDetected) Disposition Clinical Impression: Mood disorder, Generalized anxiety disorder Disposition: HOME SELF-CARE Condition: Fair Instructions (If sedation given, give patient instructions): Anxiety (ED) Is patient prescribed a controlled substance at d/c from ED?: No Referrals: Flash Schofield MD [Primary Care Provider] - 1-2 days
[2021-04-08 02:39] LABS: Amphetamine Screen,Urine Not Detected (NotDetected); Barbiturate Screen,Urine Not Detected (NotDetected); Benzodiazepines Screen,Urine Not Detected (NotDetected); Cocaine Screen,Urine Not Detected (NotDetected); Methadone Screen, Urine Not Detected (NotDetected); Opiate Screen,Urine Not Detected (NotDetected); Oxycodone Screen, Urine Not Detected (NotDetected); Phencyclidine Screen,Urine Not Detected (NotDetected); Tricyclic Antidepressant,Urine Not Detected (NotDetected); Urn Cannabinoid Scrn Detected (NotDetected)
[2021-04-08 06:01] VITALS: BP 134/87; PULSE 77; RESP 15
== END 2021-04-08 05:55 | disposition home or self-care (01) ==
LOC: EC 23:54
DX: F41.1 Generalized anxiety disorder (principal); F39 Unspecified mood [affective] disorder; F31.9 Bipolar disorder, unspecified; F25.9 Schizoaffective disorder, unspecified; F17.200 Nicotine dependence, unspecified, uncomplicated; F12.90 Cannabis use, unspecified, uncomplicated; J44.9 Chronic obstructive pulmonary disease, unspecified; G43.909 Migraine, unspecified, not intractable, without status migrainosus; Z86.73 Personal history of transient ischemic attack (TIA), and cerebral infarction without residual deficits; Z79.51 Long term (current) use of inhaled steroids
CPT/HCPCS: 80306; 82075; 99283

== ENCOUNTER 2021-04-14 23:20 | Emergency (ER) | payer OTHER ==
[2021-04-14 23:48] VITALS: BP 119/70; PULSE 70; RESP 18; TEMP 97.9
--- NOTE | 2021-04-15 00:50 | ED ---
Abdominal Pain HPI - General Chief Complaint: Abdominal Pain Stated Complaint: Dehydrated Time Seen by Provider: 04/15/21 00:26 Source: patient Mode of arrival: ambulatory - Related Data Home Medications Medication Instructions Recorded Confirmed Albuterol Inhaler [Ventolin Hfa 2 puff INHALATION RT-Q6H PRN 05/12/20 03/08/21 Inhaler] Previous Rx's Medication Instructions Recorded Acetaminophen Tab [Tylenol] 650 mg PO Q4HR PRN tab 03/11/21 Nicotine 21Mg/24Hr Patch [Habitrol] 1 patch TRANSDERM DAILY 14 Days 03/11/21 patch PARoxetine [Paxil] 30 mg PO HS 30 Days tab 03/11/21 hydrOXYzine pamoate [Vistaril] 25 mg PO DAILY PRN 30 Days cap 03/11/21 traZODone HCL [Desyrel] 100 mg PO HS 30 Days tab 03/11/21 Allergies Allergy/AdvReac Type Severity Reaction Status Date / Time horseradish Allergy Anaphylaxis Verified 04/14/21 23:48 venom-wasp Allergy Anaphylaxis Verified 04/14/21 23:48 Review of Systems ROS Statement: Those systems with pertinent positive or pertinent negative responses have been documented in the HPI. ROS Other: All systems not noted in ROS Statement are negative. 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 Past Anesthesia/Blood Transfusion Reactions: Unable to Obtain Additional Past Anesthesia/Blood Transfusion Reaction / Comment(s): Pt has never had general/spinal anesthesia Past Psychological History: Anxiety, Bipolar, Depression, Schizoaffective Disorder, Schizophrenia Smoking Status: Current every day smoker Past Alcohol Use History: Occasional Past Drug Use History: Marijuana - Past Family History Mother Family Medical History: CVA/TIA, Diabetes Mellitus, Myocardial Infarction ([place]) Father Additional Family Medical History / Comment(s): Emphesema Course Vital Signs 04/14/21 23:45 Temperature 97.9 F Pulse Rate 70 Respiratory 18 Rate Blood Pressure 119/70 O2 Sat by Pulse 98 Oximetry Disposition Clinical Impression: Abdominal pain, Dizziness, Homeless Disposition: HOME SELF-CARE Condition: Good Instructions (If sedation given, give patient instructions): Abdominal Pain (ED) Is patient prescribed a controlled substance at d/c from ED?: No Referrals: Flash Schofield MD [Primary Care Provider] - 1-2 days
== END 2021-04-15 02:45 | disposition home or self-care (01) ==
LOC: EC 23:20
DX: R10.9 Unspecified abdominal pain (principal); R42 Dizziness and giddiness; J44.9 Chronic obstructive pulmonary disease, unspecified; G43.909 Migraine, unspecified, not intractable, without status migrainosus; I25.2 Old myocardial infarction; F31.9 Bipolar disorder, unspecified; F20.9 Schizophrenia, unspecified; F17.200 Nicotine dependence, unspecified, uncomplicated; F12.90 Cannabis use, unspecified, uncomplicated; Z86.73 Personal history of transient ischemic attack (TIA), and cerebral infarction without residual deficits; Z79.51 Long term (current) use of inhaled steroids; Z59.0 Homelessness
CPT/HCPCS: 99283

== ENCOUNTER 2021-04-22 01:12 | Emergency (ER) | payer OTHER ==
[2021-04-22 01:26] VITALS: BP 115/69; PULSE 66; RESP 18; TEMP 97.7
--- NOTE | 2021-04-22 01:36 | ED ---
Psych HPI - General Chief Complaint: Psychiatric Symptoms Stated Complaint: mental health Time Seen by Provider: 04/22/21 01:28 Source: patient, RN notes reviewed Mode of arrival: ambulatory Limitations: no limitations - History of Present Illness Initial Comments: 51-year-old male presents emergency Department with chief complaint depression, suicidal ideation. Patient states he depressed and suicidal without plan, no homicidal ideation does admit to marijuana use no alcohol abuse states is not eating a few days if no food. Patient denies any other complaints. - Related Data Home Medications Medication Instructions Recorded Confirmed Albuterol Inhaler [Ventolin Hfa 2 puff INHALATION RT-Q6H PRN 05/12/20 03/08/21 Inhaler] Previous Rx's Medication Instructions Recorded Acetaminophen Tab [Tylenol] 650 mg PO Q4HR PRN tab 03/11/21 Nicotine 21Mg/24Hr Patch [Habitrol] 1 patch TRANSDERM DAILY 14 Days 03/11/21 patch PARoxetine [Paxil] 30 mg PO HS 30 Days tab 03/11/21 hydrOXYzine pamoate [Vistaril] 25 mg PO DAILY PRN 30 Days cap 03/11/21 traZODone HCL [Desyrel] 100 mg PO HS 30 Days tab 03/11/21 Allergies Allergy/AdvReac Type Severity Reaction Status Date / Time horseradish Allergy Anaphylaxis Verified 04/14/21 23:48 venom-wasp Allergy Anaphylaxis Verified 04/14/21 23:48 Review of Systems ROS Statement: Those systems with pertinent positive or pertinent negative responses have been documented in the HPI. ROS Other: All systems not noted in ROS Statement are negative. 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 Past Anesthesia/Blood Transfusion Reactions: Unable to Obtain Additional Past Anesthesia/Blood Transfusion Reaction / Comment(s): Pt has never had general/spinal anesthesia Past Psychological History: Anxiety, Bipolar, Depression, Schizoaffective Disorder, Schizophrenia Smoking Status: Current every day smoker Past Alcohol Use History: Occasional Past Drug Use History: Marijuana - Past Family History Mother Family Medical History: CVA/TIA, Diabetes Mellitus, Myocardial Infarction ([place]) Father Additional Family Medical History / Comment(s): Emphesema General Exam Limitations: no limitations General appearance: alert, in no apparent distress Head exam: Present: atraumatic, normocephalic, normal inspection Eye exam: Present: normal appearance, PERRL, EOMI. Absent: scleral icterus, conjunctival injection, periorbital swelling Neck exam: Present: normal inspection. Absent: tenderness, meningismus, lymphadenopathy Respiratory exam: Present: normal lung sounds bilaterally. Absent: respiratory distress, wheezes, rales, rhonchi, stridor Cardiovascular Exam: Present: regular rate, normal rhythm, normal heart sounds. Absent: systolic murmur, diastolic murmur, rubs, gallop, clicks Neurological exam: Present: alert Psychiatric exam: Present: flat affect Skin exam: Present: warm, dry, intact, normal color. Absent: rash Course Vital Signs 04/22/21 01:22 Temperature 97.7 F Pulse Rate 66 Respiratory 18 Rate Blood Pressure 115/69 O2 Sat by Pulse 97 Oximetry Medical Decision Making - Medical Decision Making Patient was evaluated by [facility] and which patient does not state he is suicidal he is homeless and was looking for something to eat. Patient contracts for safety and case discussed with psychiatrist requests discharge. - Lab Data Lab Results 04/22/21 Range/Units 01:48 Urine Opiates Screen Not Detected (NotDetected) Ur Oxycodone Screen Not Detected (NotDetected) Urine Methadone Screen Not Detected (NotDetected) Ur Propoxyphene Screen Not Detected (NotDetected) Ur Barbiturates Screen Not Detected (NotDetected) U Tricyclic Antidepress Not Detected (NotDetected) Ur Phencyclidine Scrn Not Detected (NotDetected) Ur Amphetamines Screen Not Detected (NotDetected) U Methamphetamines Scrn Not Detected (NotDetected) U Benzodiazepines Scrn Not Detected (NotDetected) Urine Cocaine Screen Not Detected (NotDetected) U Marijuana (THC) Screen Detected H (NotDetected) Disposition Clinical Impression: Homeless, Depression Disposition: HOME SELF-CARE Condition: Stable Instructions (If sedation given, give patient instructions): Depression (ED) Additional Instructions: Please return to the Emergency Department if symptoms worsen or any other concerns. Is patient prescribed a controlled substance at d/c from ED?: No Referrals: Flash Schofield MD [Primary Care Provider] - 1-2 days Time of Disposition: 02:21
[2021-04-22 02:16] LABS: Amphetamine Screen,Urine Not Detected (NotDetected); Barbiturate Screen,Urine Not Detected (NotDetected); Benzodiazepines Screen,Urine Not Detected (NotDetected); Cocaine Screen,Urine Not Detected (NotDetected); Methadone Screen, Urine Not Detected (NotDetected); Opiate Screen,Urine Not Detected (NotDetected); Oxycodone Screen, Urine Not Detected (NotDetected); Phencyclidine Screen,Urine Not Detected (NotDetected); Tricyclic Antidepressant,Urine Not Detected (NotDetected); Urn Cannabinoid Scrn Detected (NotDetected)
== END 2021-04-22 05:34 | disposition home or self-care (01) ==
LOC: EC 01:12
DX: F32.9 Major depressive disorder, single episode, unspecified (principal); F12.90 Cannabis use, unspecified, uncomplicated; F25.9 Schizoaffective disorder, unspecified; F17.200 Nicotine dependence, unspecified, uncomplicated; J44.9 Chronic obstructive pulmonary disease, unspecified; Z59.0 Homelessness; Z86.73 Personal history of transient ischemic attack (TIA), and cerebral infarction without residual deficits; Z95.5 Presence of coronary angioplasty implant and graft
CPT/HCPCS: 80306; 82075; 99284

== ENCOUNTER 2021-04-22 22:36 | Emergency (ER) | payer OTHER ==
[2021-04-22 23:17] VITALS: BP 114/73; PULSE 64; TEMP 97.7
[2021-04-23 01:42] VITALS: RESP 20
--- NOTE | 2021-04-23 01:54 | ED ---
Psych HPI - General Chief Complaint: Psychiatric Symptoms Stated Complaint: Mental Health Time Seen by Provider: 04/23/21 00:41 Source: patient Mode of arrival: ambulatory - History of Present Illness Initial Comments: 51 year-old male patient presents to the emergency department for evaluation due to being unable to control his thoughts. States he was upset earlier today and his thoughts were racing. Triage note says patient wanted to hurt someone. Patient denies this. He denies any suicidal or homicidal ideation. States he feels well and has no physical symptoms or concerns. - Related Data Home Medications Medication Instructions Recorded Confirmed Albuterol Inhaler [Ventolin Hfa 2 puff INHALATION RT-Q6H PRN 05/12/20 03/08/21 Inhaler] Previous Rx's Medication Instructions Recorded Acetaminophen Tab [Tylenol] 650 mg PO Q4HR PRN tab 03/11/21 Nicotine 21Mg/24Hr Patch [Habitrol] 1 patch TRANSDERM DAILY 14 Days 03/11/21 patch PARoxetine [Paxil] 30 mg PO HS 30 Days tab 03/11/21 hydrOXYzine pamoate [Vistaril] 25 mg PO DAILY PRN 30 Days cap 03/11/21 traZODone HCL [Desyrel] 100 mg PO HS 30 Days tab 03/11/21 Allergies Allergy/AdvReac Type Severity Reaction Status Date / Time horseradish Allergy Anaphylaxis Verified 04/22/21 23:15 venom-wasp Allergy Anaphylaxis Verified 04/22/21 23:15 Review of Systems ROS Statement: Those systems with pertinent positive or pertinent negative responses have been documented in the HPI. ROS Other: All systems not noted in ROS Statement are negative. 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 Past Anesthesia/Blood Transfusion Reactions: Unable to Obtain Additional Past Anesthesia/Blood Transfusion Reaction / Comment(s): Pt has never had general/spinal anesthesia Past Psychological History: Anxiety, Bipolar, Depression, Schizoaffective Disorder, Schizophrenia Smoking Status: Current every day smoker Past Alcohol Use History: Occasional Past Drug Use History: Marijuana - Past Family History Mother Family Medical History: CVA/TIA, Diabetes Mellitus, Myocardial Infarction ([place]) Father Additional Family Medical History / Comment(s): Emphesema General Exam Limitations: no limitations General appearance: alert, in no apparent distress Eye exam: Present: normal appearance, PERRL, EOMI. Absent: scleral icterus, conjunctival injection, periorbital swelling Respiratory exam: Present: normal lung sounds bilaterally. Absent: respiratory distress, wheezes, rales, rhonchi, stridor Cardiovascular Exam: Present: regular rate, normal rhythm, normal heart sounds. Absent: systolic murmur, diastolic murmur, rubs, gallop, clicks Neurological exam: Present: alert, oriented X3, CN II-XII intact Psychiatric exam: Present: normal affect, normal mood Skin exam: Present: warm, dry, intact, normal color. Absent: rash Course Vital Signs 04/22/21 04/22/21 04/23/21 23:15 23:17 00:17 Temperature 97.7 F Pulse Rate 64 Respiratory 18 18 18 Rate Blood Pressure 114/73 O2 Sat by Pulse 98 98 95 Oximetry 04/23/21 01:17 Temperature Pulse Rate Respiratory 20 Rate Blood Pressure O2 Sat by Pulse 95 Oximetry Medical Decision Making - Medical Decision Making 51-year-old male patient presented for evaluation of racing thoughts. He denied suicidal or homicidal ideation. He was seen and evaluated by emergency psychiatric services, was determined he could be discharged home. He'll be discharged follow-up with his primary care physician outpatient mental health services as needed. Return parameters were discussed in detail. He verbalizes understanding and agrees with this plan. My attending is Dr. Krishna. Disposition Clinical Impression: Homeless Disposition: HOME SELF-CARE Condition: Good Additional Instructions: Follow-up with outpatient mental health services as needed. Follow-up with her primary care physician as needed. Is patient prescribed a controlled substance at d/c from ED?: No Referrals: Flash Schofield MD [Primary Care Provider] - 1-2 days Time of Disposition: 01:54
== END 2021-04-23 02:17 | disposition home or self-care (01) ==
LOC: EC 22:36
DX: R45.850 Homicidal ideations (principal); Z59.0 Homelessness; J44.9 Chronic obstructive pulmonary disease, unspecified; G43.909 Migraine, unspecified, not intractable, without status migrainosus; I25.2 Old myocardial infarction; F31.9 Bipolar disorder, unspecified; F41.9 Anxiety disorder, unspecified; F20.9 Schizophrenia, unspecified; F12.90 Cannabis use, unspecified, uncomplicated; F17.200 Nicotine dependence, unspecified, uncomplicated; Z86.73 Personal history of transient ischemic attack (TIA), and cerebral infarction without residual deficits; Z79.51 Long term (current) use of inhaled steroids
CPT/HCPCS: 82075; 99284

== ENCOUNTER 2021-05-08 07:58 | Emergency (ER) | payer OTHER ==
[2021-05-08 08:04] VITALS: RESP 18; TEMP 98
[2021-05-08] MEDS ORDERED: KETOROLAC 15 MG/ML 1 ML VIAL IM STA (08:27)
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
--- NOTE | 2021-05-08 09:14 | XR ---
EXAMINATION TYPE: XR shoulder complete RT DATE OF EXAM: 05/08/2021 CLINICAL HISTORY: pain TECHNIQUE: Three views of the right shoulder are obtained. COMPARISON: None. FINDINGS: There is no acute fracture/dislocation evident in the right shoulder. There is an old rig ht distal clavicle fracture. IMPRESSION: There is no acute fracture/dislocation evident in the right shoulder. There is an old right distal c lavicle fracture.
[2021-05-08 09:44] VITALS: BP 121/71; PULSE 69
== END 2021-05-08 09:43 | disposition home or self-care (01) ==
LOC: EC 07:58
DX: M25.511 Pain in right shoulder (principal); J44.9 Chronic obstructive pulmonary disease, unspecified; G43.909 Migraine, unspecified, not intractable, without status migrainosus; I25.2 Old myocardial infarction; F31.9 Bipolar disorder, unspecified; F41.9 Anxiety disorder, unspecified; F25.9 Schizoaffective disorder, unspecified; F17.200 Nicotine dependence, unspecified, uncomplicated; F12.90 Cannabis use, unspecified, uncomplicated; Z86.73 Personal history of transient ischemic attack (TIA), and cerebral infarction without residual deficits; Z79.51 Long term (current) use of inhaled steroids
CPT/HCPCS: 73030; 99283; 96372; J1885

== ENCOUNTER 2021-05-10 22:50 | Emergency (ER) | payer OTHER ==
--- NOTE | 2021-05-11 01:47 | ED ---
Psych HPI - General Chief Complaint: Psychiatric Symptoms Stated Complaint: Headache Time Seen by Provider: 05/10/21 23:10 Source: patient, RN notes reviewed, old records reviewed Mode of arrival: ambulatory Limitations: no limitations - History of Present Illness Initial Comments: This is a 51-year-old male DF for evaluation patient's well-known to our facility for psychiatric illness patient presents today saying he needs to speak with psychiatry. Patient denying current alcohol or drug abuse. Patient did drink today. Patient denying any recent changes distress. Patient states that he needs psychiatric help. MD Complaint: feels depressed -: days(s) Associated Psychiatric Symptoms: depression History of same: Yes Quality: intermittent Improves With: none Worsens With: none Context: recent alcohol abuse, not taking psychiatric medications Associated Symptoms: denies other symptoms Treatments Prior to Arrival: placed on mental health hold - Related Data Home Medications Medication Instructions Recorded Confirmed Albuterol Inhaler [Ventolin Hfa 2 puff INHALATION RT-Q6H PRN 05/12/20 03/08/21 Inhaler] Previous Rx's Medication Instructions Recorded Acetaminophen Tab [Tylenol] 650 mg PO Q4HR PRN tab 03/11/21 Nicotine 21Mg/24Hr Patch [Habitrol] 1 patch TRANSDERM DAILY 14 Days 03/11/21 patch PARoxetine [Paxil] 30 mg PO HS 30 Days tab 03/11/21 hydrOXYzine pamoate [Vistaril] 25 mg PO DAILY PRN 30 Days cap 03/11/21 traZODone HCL [Desyrel] 100 mg PO HS 30 Days tab 03/11/21 Allergies Allergy/AdvReac Type Severity Reaction Status Date / Time horseradish Allergy Anaphylaxis Verified 05/10/21 23:09 venom-wasp Allergy Anaphylaxis Verified 05/10/21 23:09 Review of Systems ROS Statement: Those systems with pertinent positive or pertinent negative responses have been documented in the HPI. ROS Other: All systems not noted in ROS Statement are negative. 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 Past Anesthesia/Blood Transfusion Reactions: Unable to Obtain Additional Past Anesthesia/Blood Transfusion Reaction / Comment(s): Pt has never had general/spinal anesthesia Past Psychological History: Anxiety, Bipolar, Depression, PTSD, Schizoaffective Disorder, Schizophrenia Smoking Status: Current every day smoker Past Alcohol Use History: Occasional Past Drug Use History: Marijuana - Past Family History Mother Family Medical History: CVA/TIA, Diabetes Mellitus, Myocardial Infarction ([place]) Father Additional Family Medical History / Comment(s): Emphesema General Exam Limitations: no limitations General appearance: alert, in no apparent distress Head exam: Present: atraumatic, normocephalic, normal inspection Eye exam: Present: normal appearance, PERRL, EOMI. Absent: scleral icterus, conjunctival injection, periorbital swelling ENT exam: Present: normal exam, mucous membranes moist Neck exam: Present: normal inspection. Absent: tenderness, meningismus, lymphadenopathy Respiratory exam: Present: normal lung sounds bilaterally. Absent: respiratory distress, wheezes, rales, rhonchi, stridor Cardiovascular Exam: Present: regular rate, normal rhythm, normal heart sounds. Absent: systolic murmur, diastolic murmur, rubs, gallop, clicks GI/Abdominal exam: Present: soft, normal bowel sounds. Absent: distended, tenderness, guarding, rebound, rigid Extremities exam: Present: normal inspection, full ROM, normal capillary refill. Absent: tenderness, pedal edema, joint swelling, calf tenderness Back exam: Present: normal inspection Neurological exam: Present: alert, oriented X3, CN II-XII intact Psychiatric exam: Present: normal affect, normal mood Skin exam: Present: warm, dry, intact, normal color. Absent: rash Course Vital Signs 05/10/21 05/11/21 23:06 05:01 Temperature 98.1 F 98 F Pulse Rate 66 57 L Respiratory 18 16 Rate Blood Pressure 107/65 110/60 O2 Sat by Pulse 98 97 Oximetry - Reevaluation(s) Reevaluation #1: 05/11/21 Medical record is reviewed Medically clear for psychiatric evaluation Medical Decision Making - Medical Decision Making 51 male who was seen and evaluated by psychiatry here in the ER. Patient was able to rest his right here in the ER, patient is not currently homicidal or suicidal and can be discharged home Disposition Clinical Impression: Major depressive disorder, recurrent, Generalized anxiety disorder Disposition: HOME SELF-CARE Condition: Fair Instructions (If sedation given, give patient instructions): Depression (ED) Is patient prescribed a controlled substance at d/c from ED?: No Referrals: Flash Schofield MD [Primary Care Provider] - 1-2 days
[2021-05-11 05:08] VITALS: BP 110/60; PULSE 57; RESP 16; TEMP 98
== END 2021-05-11 05:00 | disposition home or self-care (01) ==
LOC: EC 22:50
DX: F33.9 Major depressive disorder, recurrent, unspecified (principal); F41.1 Generalized anxiety disorder; J44.9 Chronic obstructive pulmonary disease, unspecified; I25.2 Old myocardial infarction; F25.9 Schizoaffective disorder, unspecified; F17.200 Nicotine dependence, unspecified, uncomplicated; F12.90 Cannabis use, unspecified, uncomplicated; Z83.3 Family history of diabetes mellitus; Z82.49 Family history of ischemic heart disease and other diseases of the circulatory system; Z86.73 Personal history of transient ischemic attack (TIA), and cerebral infarction without residual deficits
CPT/HCPCS: 82075; 99283

== ENCOUNTER 2021-05-14 21:48 | Emergency (ER) | payer OTHER ==
[2021-05-14 21:53] VITALS: BP 113/72; PULSE 76; TEMP 98.2
[2021-05-14] MEDS ORDERED: LORATADINE 10 MG TAB PO STA (22:26)
--- NOTE | 2021-05-14 22:27 | ED ---
URI HPI - General Chief Complaint: Upper Respiratory Infection Stated Complaint: cough Time Seen by Provider: 05/14/21 21:59 Source: patient Mode of arrival: ambulatory - History of Present Illness Initial Comments: 51-year-old male presents to emergency department with a chief complaint of sinus congestion. Status did not want for the past 2 days. Reports clear bilateral rhinorrhea with occasional sore throat but denies any significant cough chest pain or shortness of breath. He is a smoker. Denies any fevers chills. Denies any exposure to Covid. Denies any otalgia or discharge from the ears. - Related Data Home Medications Medication Instructions Recorded Confirmed Albuterol Inhaler [Ventolin Hfa 2 puff INHALATION RT-Q6H PRN 05/12/20 03/08/21 Inhaler] Previous Rx's Medication Instructions Recorded Acetaminophen Tab [Tylenol] 650 mg PO Q4HR PRN tab 03/11/21 Nicotine 21Mg/24Hr Patch [Habitrol] 1 patch TRANSDERM DAILY 14 Days 03/11/21 patch PARoxetine [Paxil] 30 mg PO HS 30 Days tab 03/11/21 hydrOXYzine pamoate [Vistaril] 25 mg PO DAILY PRN 30 Days cap 03/11/21 traZODone HCL [Desyrel] 100 mg PO HS 30 Days tab 03/11/21 Cetirizine HCl [Zyrtec] 10 mg PO DAILY #30 tab 05/14/21 Allergies Allergy/AdvReac Type Severity Reaction Status Date / Time horseradish Allergy Anaphylaxis Verified 05/14/21 21:53 venom-wasp Allergy Anaphylaxis Verified 05/14/21 21:53 Review of Systems ROS Statement: Those systems with pertinent positive or pertinent negative responses have been documented in the HPI. ROS Other: All systems not noted in ROS Statement are negative. 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 Past Anesthesia/Blood Transfusion Reactions: Unable to Obtain Additional Past Anesthesia/Blood Transfusion Reaction / Comment(s): Pt has never had general/spinal anesthesia Past Psychological History: Anxiety, Bipolar, Depression, PTSD, Schizoaffective Disorder, Schizophrenia Smoking Status: Current every day smoker Past Alcohol Use History: Occasional Past Drug Use History: Marijuana - Past Family History Mother Family Medical History: CVA/TIA, Diabetes Mellitus, Myocardial Infarction ([place]) Father Additional Family Medical History / Comment(s): Emphesema General Exam General appearance: alert, in no apparent distress Head exam: Present: atraumatic, normocephalic, normal inspection Eye exam: Present: normal appearance, PERRL, EOMI Pupils: Present: normal accommodation ENT exam: Present: normal exam, normal oropharynx, mucous membranes moist, TM's normal bilaterally, normal external ear exam Neck exam: Present: normal inspection, full ROM. Absent: lymphadenopathy Respiratory exam: Present: normal lung sounds bilaterally. Absent: respiratory distress, wheezes, rales, rhonchi, stridor Cardiovascular Exam: Present: regular rate, normal rhythm, normal heart sounds. Absent: systolic murmur Extremities exam: Present: normal inspection, full ROM, normal capillary refill. Absent: tenderness, pedal edema, joint swelling Back exam: Present: normal inspection, full ROM. Absent: tenderness Neurological exam: Present: alert, oriented X3 Psychiatric exam: Present: normal affect, normal mood Skin exam: Present: warm, dry, intact, normal color Course Vital Signs 05/14/21 05/14/21 21:51 21:53 Temperature 98.2 F Pulse Rate 76 Respiratory 17 16 Rate Blood Pressure 113/72 O2 Sat by Pulse 97 Oximetry Medical Decision Making - Medical Decision Making 51-year-old male presents emergency department with chief complaint of sinus congestion. On physical examination, patient well-appearing. Patient likely has an upper respiratory infection. He will be discharged with Zyrtec. Return parameters discussed with patient is an ascending agreeable. Case discussed with physician. Disposition Clinical Impression: Upper respiratory infection Disposition: HOME SELF-CARE Condition: Stable Instructions (If sedation given, give patient instructions): Upper Respiratory Infection (ED) Additional Instructions: Please return to the Emergency Department if symptoms worsen or any other concerns. Prescriptions: Cetirizine HCl [Zyrtec] 10 mg PO DAILY #30 tab Is patient prescribed a controlled substance at d/c from ED?: No Referrals: Flash Schofield MD [Primary Care Provider] - 1-2 days Time of Disposition: 22:27
[2021-05-14 22:33] VITALS: RESP 16
== END 2021-05-14 23:01 | disposition home or self-care (01) ==
LOC: EC 21:48
DX: J06.9 Acute upper respiratory infection, unspecified (principal); J44.9 Chronic obstructive pulmonary disease, unspecified; F31.9 Bipolar disorder, unspecified; F41.9 Anxiety disorder, unspecified; I25.2 Old myocardial infarction; F25.9 Schizoaffective disorder, unspecified; F17.200 Nicotine dependence, unspecified, uncomplicated; F12.90 Cannabis use, unspecified, uncomplicated; Z82.49 Family history of ischemic heart disease and other diseases of the circulatory system; Z83.3 Family history of diabetes mellitus; Z86.73 Personal history of transient ischemic attack (TIA), and cerebral infarction without residual deficits; Z79.899 Other long term (current) drug therapy; Z79.51 Long term (current) use of inhaled steroids
CPT/HCPCS: 99283

== ENCOUNTER 2021-05-17 02:45 | Emergency (ER) | payer OTHER ==
[2021-05-17 02:56] VITALS: BP 100/68; TEMP 97.9
--- NOTE | 2021-05-17 03:48 | ED ---
SOB HPI - General Chief Complaint: Shortness of Breath Stated Complaint: THADDEUS Time Seen by Provider: 05/17/21 02:56 Source: patient Mode of arrival: ambulatory - History of Present Illness Complaint: shortness of breath -: hour(s) Severity scale (1-10): 0 Consistency: constant Improves With: nothing Worsens With: nothing Known History Of: COPD Associated Symptoms: denies other symptoms Treatments Prior to Arrival: none - Related Data Home Oxygen Therapy: No Home Medications Medication Instructions Recorded Confirmed Albuterol Inhaler [Ventolin Hfa 2 puff INHALATION RT-Q6H PRN 05/12/20 03/08/21 Inhaler] Previous Rx's Medication Instructions Recorded Acetaminophen Tab [Tylenol] 650 mg PO Q4HR PRN tab 03/11/21 Nicotine 21Mg/24Hr Patch [Habitrol] 1 patch TRANSDERM DAILY 14 Days 03/11/21 patch PARoxetine [Paxil] 30 mg PO HS 30 Days tab 03/11/21 hydrOXYzine pamoate [Vistaril] 25 mg PO DAILY PRN 30 Days cap 03/11/21 traZODone HCL [Desyrel] 100 mg PO HS 30 Days tab 03/11/21 Cetirizine HCl [Zyrtec] 10 mg PO DAILY #30 tab 05/14/21 Allergies Allergy/AdvReac Type Severity Reaction Status Date / Time horseradish Allergy Anaphylaxis Verified 05/17/21 02:56 venom-wasp Allergy Anaphylaxis Verified 05/17/21 02:56 Review of Systems ROS Statement: Those systems with pertinent positive or pertinent negative responses have been documented in the HPI. ROS Other: All systems not noted in ROS Statement are negative. Constitutional: Denies: fever, chills Respiratory: Reports: cough, dyspnea, wheezes. 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 Past Anesthesia/Blood Transfusion Reactions: Unable to Obtain Additional Past Anesthesia/Blood Transfusion Reaction / Comment(s): Pt has never had general/spinal anesthesia Past Psychological History: Anxiety, Bipolar, Depression, PTSD, Schizoaffective Disorder, Schizophrenia Smoking Status: Current every day smoker Past Alcohol Use History: Occasional Past Drug Use History: Marijuana - Past Family History Mother Family Medical History: CVA/TIA, Diabetes Mellitus, Myocardial Infarction ([place]) Father Additional Family Medical History / Comment(s): Emphesema General Exam General appearance: alert, in no apparent distress Head exam: Present: atraumatic, normocephalic Respiratory exam: Present: wheezes. Absent: respiratory distress, rales, rhonchi, stridor Cardiovascular Exam: Present: regular rate, normal rhythm, normal heart sounds. Absent: systolic murmur, diastolic murmur, rubs, gallop GI/Abdominal exam: Present: soft. Absent: tenderness, guarding, rebound Extremities exam: Present: normal inspection, normal capillary refill Back exam: Present: normal inspection. Absent: CVA tenderness (R), CVA tenderness (L) Neurological exam: Present: alert Skin exam: Present: warm, dry, intact, normal color. Absent: rash Course Vital Signs 05/17/21 02:54 Temperature 97.9 F Pulse Rate 87 Respiratory 19 Rate Blood Pressure 100/68 O2 Sat by Pulse 97 Oximetry Disposition Clinical Impression: COPD exacerbation Disposition: HOME SELF-CARE Condition: Good Instructions (If sedation given, give patient instructions): COPD (Chronic Obstructive Pulmonary Disease) (ED) Is patient prescribed a controlled substance at d/c from ED?: No Referrals: Flash Schofield MD [Primary Care Provider] - 1-2 days
[2021-05-17 06:42] VITALS: PULSE 95; RESP 16
== END 2021-05-17 06:40 | disposition home or self-care (01) ==
LOC: EC 02:45
DX: J44.1 Chronic obstructive pulmonary disease with (acute) exacerbation (principal); F17.200 Nicotine dependence, unspecified, uncomplicated; F25.9 Schizoaffective disorder, unspecified; F31.9 Bipolar disorder, unspecified; F41.9 Anxiety disorder, unspecified; I25.2 Old myocardial infarction; Z86.73 Personal history of transient ischemic attack (TIA), and cerebral infarction without residual deficits; F12.90 Cannabis use, unspecified, uncomplicated; Z95.5 Presence of coronary angioplasty implant and graft
CPT/HCPCS: 99284

== ENCOUNTER 2021-05-28 23:36 | Emergency (ER) | payer OTHER ==
[2021-05-28 23:43] VITALS: BP 102/63; PULSE 63; RESP 19; TEMP 97.6
--- NOTE | 2021-05-29 01:44 | ED ---
General Adult HPI - General Chief complaint: Chest Pain Stated complaint: Chest Pain Time Seen by Provider: 05/29/21 00:57 Source: patient Mode of arrival: ambulatory - History of Present Illness Initial comments: 51 year-old male patient well known to our department presents for evaluation of chest pain. States chest pain is currently resolved. States that he had pain intermittently throughout the day. States he has chest pain every day. No change to the pain. No new symptoms associated with it. Denies any shortness of breath, nausea, vomiting, sweats, or dizziness. States that he has not eaten anything in three days. He is currently homeless. He is requesting food and to be allowed to sleep in a bed here tonight. No other complaints. - Related Data Home Medications Medication Instructions Recorded Confirmed Albuterol Inhaler [Ventolin Hfa 2 puff INHALATION RT-Q6H PRN 05/12/20 03/08/21 Inhaler] Previous Rx's Medication Instructions Recorded Acetaminophen Tab [Tylenol] 650 mg PO Q4HR PRN tab 03/11/21 Nicotine 21Mg/24Hr Patch [Habitrol] 1 patch TRANSDERM DAILY 14 Days 03/11/21 patch PARoxetine [Paxil] 30 mg PO HS 30 Days tab 03/11/21 hydrOXYzine pamoate [Vistaril] 25 mg PO DAILY PRN 30 Days cap 03/11/21 traZODone HCL [Desyrel] 100 mg PO HS 30 Days tab 03/11/21 Cetirizine HCl [Zyrtec] 10 mg PO DAILY #30 tab 05/14/21 Allergies Allergy/AdvReac Type Severity Reaction Status Date / Time horseradish Allergy Anaphylaxis Verified 05/28/21 23:43 venom-wasp Allergy Anaphylaxis Verified 05/28/21 23:43 Review of Systems ROS Statement: Those systems with pertinent positive or pertinent negative responses have been documented in the HPI. ROS Other: All systems not noted in ROS Statement are negative. 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 Past Anesthesia/Blood Transfusion Reactions: Unable to Obtain Additional Past Anesthesia/Blood Transfusion Reaction / Comment(s): Pt has never had general/spinal anesthesia Past Psychological History: Anxiety, Bipolar, Depression, PTSD, Schizoaffective Disorder, Schizophrenia Smoking Status: Current every day smoker Past Alcohol Use History: Occasional Past Drug Use History: Marijuana - Past Family History Mother Family Medical History: CVA/TIA, Diabetes Mellitus, Myocardial Infarction ([place]) Father Additional Family Medical History / Comment(s): Emphesema General Exam General appearance: alert, in no apparent distress, other (Physical well- developed, well-nourished adult male patient in no acute distress. Vital signs upon presentation are temperature 97.6F, pulse 63, respirations 19, blood pressure 102/63, pulse ox 99% on room air. ) ENT exam: Present: normal exam, normal oropharynx, mucous membranes moist Respiratory exam: Present: normal lung sounds bilaterally. Absent: respiratory distress, wheezes, rales, rhonchi, stridor Cardiovascular Exam: Present: regular rate, normal rhythm, normal heart sounds. Absent: systolic murmur, diastolic murmur, rubs, gallop, clicks GI/Abdominal exam: Present: soft, normal bowel sounds. Absent: distended, t enderness, guarding, rebound, rigid Neurological exam: Present: alert, oriented X3, CN II-XII intact Psychiatric exam: Present: normal affect, normal mood Skin exam: Present: warm, dry, intact, normal color. Absent: rash Course Vital Signs 05/28/21 23:41 Temperature 97.6 F Pulse Rate 63 Respiratory 19 Rate Blood Pressure 102/63 O2 Sat by Pulse 99 Oximetry EKG Findings - EKG Comments: EKG Findings:: EKG obtained at 00 41 shows sinus bradycardia with a ventricular rate of 59, VA interval 136, QRS duration 90, QT 410, QTC 405. No evidence of ST elevation or depression Medical Decision Making - Medical Decision Making 51 year-old male patient presents for evaluation of chronic chest pain. Physical examination unremarkable. Requesting food and to be able to sleep here due to homelessness. EKG was unremarkable. He will be discharged to follow up with his primary care physician for recheck in 1-2 days. Return parameters are discussed in detail. He verbalizes understanding and agrees with this plan. Case discussed with my attending Dr. Krishna. Disposition Clinical Impression: Chest pain Disposition: HOME SELF-CARE Condition: Good Instructions (If sedation given, give patient instructions): Chest Pain (ED) Additional Instructions: Follow up with your primary care physician for recheck in 1-2 days. Return for any new, worsening, or concerning symptoms. Is patient prescribed a controlled substance at d/c from ED?: No Referrals: Flash Schofield MD [Primary Care Provider] - 1-2 days Time of Disposition: 01:44
== END 2021-05-29 02:35 | disposition home or self-care (01) ==
LOC: EC 23:36
DX: R07.9 Chest pain, unspecified (principal); J44.9 Chronic obstructive pulmonary disease, unspecified; I25.2 Old myocardial infarction; F31.9 Bipolar disorder, unspecified; F41.9 Anxiety disorder, unspecified; F25.9 Schizoaffective disorder, unspecified; F17.200 Nicotine dependence, unspecified, uncomplicated; F12.90 Cannabis use, unspecified, uncomplicated; Z86.73 Personal history of transient ischemic attack (TIA), and cerebral infarction without residual deficits; Z79.51 Long term (current) use of inhaled steroids
CPT/HCPCS: 93005; 99284

== ENCOUNTER 2021-07-23 00:18 | Inpatient (IN) | payer MEDICAID, OTHER ==
--- NOTE | 2021-07-23 00:31 | ED ---
Psych HPI - General Chief Complaint: Psychiatric Symptoms Stated Complaint: Mental health Time Seen by Provider: 07/23/21 00:30 Source: patient Mode of arrival: ambulatory - Related Data Home Medications Medication Instructions Recorded Confirmed Albuterol Inhaler [Ventolin Hfa 2 puff INHALATION RT-Q6H PRN 05/12/20 03/08/21 Inhaler] Previous Rx's Medication Instructions Recorded Acetaminophen Tab [Tylenol] 650 mg PO Q4HR PRN tab 03/11/21 Nicotine 21Mg/24Hr Patch [Habitrol] 1 patch TRANSDERM DAILY 14 Days 03/11/21 patch PARoxetine [Paxil] 30 mg PO HS 30 Days tab 03/11/21 hydrOXYzine pamoate [Vistaril] 25 mg PO DAILY PRN 30 Days cap 03/11/21 traZODone HCL [Desyrel] 100 mg PO HS 30 Days tab 03/11/21 Cetirizine HCl [Zyrtec] 10 mg PO DAILY #30 tab 05/14/21 Allergies Allergy/AdvReac Type Severity Reaction Status Date / Time horseradish Allergy Anaphylaxis Verified 07/23/21 00:21 venom-wasp Allergy Anaphylaxis Verified 07/23/21 00:21 Review of Systems ROS Statement: Those systems with pertinent positive or pertinent negative responses have been documented in the HPI. ROS Other: All systems not noted in ROS Statement are negative. 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 Past Anesthesia/Blood Transfusion Reactions: Unable to Obtain Additional Past Anesthesia/Blood Transfusion Reaction / Comment(s): Pt has never had general/spinal anesthesia Past Psychological History: Anxiety, Bipolar, Depression, PTSD, Schizoaffective Disorder, Schizophrenia Smoking Status: Current every day smoker Past Alcohol Use History: Occasional Past Drug Use History: Marijuana - Past Family History Mother Family Medical History: CVA/TIA, Diabetes Mellitus, Myocardial Infarction ([place]) Father Additional Family Medical History / Comment(s): Emphesema General Exam Limitations: no limitations Course Vital Signs 07/23/21 00:21 Temperature 98.2 F Pulse Rate 74 Respiratory 20 Rate Blood Pressure 113/68 O2 Sat by Pulse 99 Oximetry Disposition Referrals: Flash Schofield MD [Primary Care Provider] - 1-2 days
[2021-07-23] MEDS ORDERED: LORazepam 2 MG/ML INJ IM PRN (06:00)
[2021-07-23] MEDS ORDERED: MAG HYDROX/AL HYDROX/SIMETH 30 ML CUP PO PRN (08:00)
[2021-07-23] MEDS ORDERED: ALBUTEROL HFA INHALER INHALATION PRN (08:00)
[2021-07-23] MEDS ORDERED: ACETAMINOPHEN TAB 325 MG TAB PO PRN (08:00)
[2021-07-23] MEDS ORDERED: HALOPERIDOL LACTATE 5 MG/ML 1 ML VIAL IM PRN (08:00)
[2021-07-23] MEDS: NICOTINE 14MG/24HR PATCH TRANSDERM SCH (08:31)
[2021-07-23] MEDS ORDERED: LORazepam 1 MG TAB PO PRN (09:00)
[2021-07-23] MEDS ORDERED: MAGNESIUM HYDROXIDE 2,400 MG/10 ML CUP PO PRN (09:00)
[2021-07-23] MEDS ORDERED: haloperidoL 5 MG TAB PO PRN (09:00)
[2021-07-23 10:28] VITALS: BMI 15.8
[2021-07-23 10:32] LABS: Basophils # (A) 0.1 k/uL (0-0.2); Basophils % (A) 1 %; Eosinophils # (A) 0.5 k/uL (0-0.7); Eosinophils % (A) 4 %; HCT 43.2 % (39.0-53.0); HGB 13.8 gm/dL (13.0-17.5); Lymphocytes # (A) 2.4 k/uL (1.0-4.8); Lymphocytes % (A) 20 %; MCH 30.5 pg (25.0-35.0); MCV 95.2 fL (80.0-100.0); Monocytes # (A) 0.7 k/uL (0-1.0); Monocytes % (A) 6 %; Neutrophils # (A) 7.9 k/uL (1.3-7.7); Neutrophils % (A) 67 %; Platelet Count 348 k/uL (150-450); RBC 4.53 m/uL (4.30-5.90); RDW 13.6 % (11.5-15.5); WBC 11.9 k/uL (3.8-10.6)
[2021-07-23 10:59] LABS: ALT 19 U/L (4-49); AST 30 U/L (17-59); African American GFR (CKD) >90 (>60 ml/min/1.73 sqM); Alkaline Phosphatase 107 U/L (38-126); Anion Gap 7 mmol/L; Blood Urea Nitrogen 30 mg/dL (9-20); Calcium 9.7 mg/dL (8.4-10.2); Carbon Dioxide 29 mmol/L (22-30); Chloride 103 mmol/L (98-107); Glucose 91 mg/dL (74-99); Non-African American GFR(CKD) >90 (>60 ml/min/1.73 sqM); Potassium 4.5 mmol/L (3.5-5.1); Sodium 139 mmol/L (137-145); Total Bilirubin 0.3 mg/dL (0.2-1.3); Total Protein 6.7 g/dL (6.3-8.2)
[2021-07-23] MEDS ORDERED: hydrOXYzine pamoate 25 MG CAP PO PRN (11:13)
--- NOTE | 2021-07-23 11:15 | P.HP ---
Psychiatric H&P - . H&P Date: 07/23/21 History & Physical: Allergies Allergy/AdvReac Type Severity Reaction Status Date / Time horseradish Allergy Anaphylaxis Verified 07/23/21 00:21 venom-wasp Allergy Anaphylaxis Verified 07/23/21 00:21 Vital Signs Temp 97.7 F 07/23/21 04:54 Pulse 90 07/23/21 04:54 Resp 18 07/23/21 04:54 BP 100/76 07/23/21 04:54 Pulse Ox 95 07/23/21 04:54 Intake & Output 07/22/21 07/23/21 07/23/21 18:59 06:59 18:59 Weight 54.4 kg 54.4 kg Laboratory Last Values WBC 11.9 k/uL (3.8-10.6) H 07/23/21 10:00 RBC 4.53 m/uL (4.30-5.90) 07/23/21 10:00 Hgb 13.8 gm/dL (13.0-17.5) 07/23/21 10:00 Hct 43.2 % (39.0-53.0) 07/23/21 10:00 MCV 95.2 fL (80.0-100.0) 07/23/21 10:00 MCH 30.5 pg (25.0-35.0) 07/23/21 10:00 MCHC 32.0 g/dL (31.0-37.0) 07/23/21 10:00 RDW 13.6 % (11.5-15.5) 07/23/21 10:00 Plt Count 348 k/uL (150-450) 07/23/21 10:00 MPV 7.0 07/23/21 10:00 Neutrophils % 67 % 07/23/21 10:00 Lymphocytes % 20 % 07/23/21 10:00 Monocytes % 6 % 07/23/21 10:00 Eosinophils % 4 % 07/23/21 10:00 Basophils % 1 % 07/23/21 10:00 Neutrophils # 7.9 k/uL (1.3-7.7) H 07/23/21 10:00 Lymphocytes # 2.4 k/uL (1.0-4.8) 07/23/21 10:00 Monocytes # 0.7 k/uL (0-1.0) 07/23/21 10:00 Eosinophils # 0.5 k/uL (0-0.7) 07/23/21 10:00 Basophils # 0.1 k/uL (0-0.2) 07/23/21 10:00 Sodium 139 mmol/L (137-145) 07/23/21 10:00 Potassium 4.5 mmol/L (3.5-5.1) 07/23/21 10:00 Chloride 103 mmol/L (98-107) 07/23/21 10:00 Carbon Dioxide 29 mmol/L (22-30) 07/23/21 10:00 Anion Gap 7 mmol/L 07/23/21 10:00 BUN 30 mg/dL (9-20) H 07/23/21 10:00 Creatinine 0.88 mg/dL (0.66-1.25) 07/23/21 10:00 Est GFR (CKD-EPI)AfAm >90 (>60 ml/min/1.73 sqM) 07/23/21 10:00 Est GFR (CKD-EPI)NonAf >90 (>60 ml/min/1.73 sqM) 07/23/21 10:00 Glucose 91 mg/dL (74-99) 07/23/21 10:00 Calcium 9.7 mg/dL (8.4-10.2) 07/23/21 10:00 Total Bilirubin 0.3 mg/dL (0.2-1.3) 07/23/21 10:00 AST 30 U/L (17-59) 07/23/21 10:00 ALT 19 U/L (4-49) 07/23/21 10:00 Alkaline Phosphatase 107 U/L (38-126) 07/23/21 10:00 Total Protein 6.7 g/dL (6.3-8.2) 07/23/21 10:00 Albumin 4.0 g/dL (3.5-5.0) 07/23/21 10:00 Coronavirus (PCR) Not Detected (Not Detectd) 07/23/21 02:34 07/23/21 11:14 IDENTIFYING DATA: Patient is a single, unemployed, 51-year-old male with significant history of PTSD, schizoaffective disorder, and schizophrenia was admitted for suicidal ideation in the context of recent homelessness. HPI: Patient presented to the hospital on 07/23/21, with a chief complaint of suicidal ideation with a plan to walk into traffic. The patient reports that he came to [facility] because he "felt like I was going to have a mental breakdown." He said he was staying at a friend's house but was kicked out last night. He states that he was in a constant argument with his friend's girlfriend who was also staying in the home. He reports that once he was kicked out of the house, he began experiencing suicidal ideation with plans to either jump in front of a truck or drowning himself. The patient states that even prior to being kicked out of the home, has been feeling increasing symptoms of depression including hopelessness, helplessness, decreased appetite, and elevated anxiety. The patient reports that he has had one prior attempt at suicide when he was 15 yea rs old and he attempted to kill himself by thinking down in front of a police vehicle. He currently endorses suicidal ideation but denies any homicidal ideation, intention, and/or plan. In regards other mood symptoms, the patient does report that he has gone 2 days without any sleep on multiple occasions but denies any significant symptoms of pressured speech, impulsivity, grandiosity, or increased goal-directed behavior. The patient does report a remote history of auditory and visual hallucinations but denies any current at this time. He is not endorsing any paranoia or other delusions. The patient states that has been many years (at least 10) since his last experienced any symptoms. PAST PSYCHIATRIC HISTORY: Patient states that he has been previously diagnosed with depression, bipolar disorder, schizoaffective disorder, and schizophrenia. The patient has had numerous inpatient psychiatric hospitalizations, with the last time being in October 2019 on this unit. The patient was diagnosed with major depressive disorder, cannabis use disorder, nicotine dependence. At that time, the patient presented with the same presentation as this admission with plans to walk in front of traffic. The patient was discharged on a regimen of Lexapro and melatonin at that time. Currently, the patient is not adherent with any psychotropic medications. He states that his previously described has not been taking it. He is currently prescribed Xanax from his primary care physician Dr. Schofield which he states he is adherent to. Patient denies any psychiatric outpatient follow-up. The patient reports one prior attempts at suicide in the past when he was 15 years old. 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 Past Anesthesia/Blood Transfusion Reactions: Unable to Obtain Additional Past Anesthesia/Blood Transfusion Reaction / Comment(s): Pt has never had general/spinal anesthesia Past Psychological History: Anxiety, Bipolar, Depression, PTSD, Schizoaffective Disorder, Schizophrenia Smoking Status: Current every day smoker Past Alcohol Use History: Occasional Past Drug Use History: Marijuana ALLERGIES: Horse radish, wasp venom CHEMICAL DEPENDENCY HISTORY: The patient reports he smokes one and half packs per day of tobacco. He denies any significant alcohol use. He reports marijuana use but states that he has been unable to afford it as of late. He states that he'll use marijuana when he has access to it. He denies any illicit drug use. FAMILY PSYCHIATRIC/SUBSTANCE USE HISTORY: The patient denies any significant family psychiatric history or substance abuse history. SOCIAL HISTORY: Patient was born and raised in [place], [place]. He is cur rently single, never , but has a [id number] son who is currently living in [place]. The patient is currently homeless and reports no source of income. He states that he was denied disability. He dropped out of school in the 10th grade. He reports no service, mormonism affiliation, or current legal problems. The patient reports that he did 4-1/2 years in long term for criminal sexual conduct charge with a minor and was released in 2002. He is a registered sex offender. He reports that he has been having difficulty finding work due to his asthma making it difficult to work in hot conditions and his status as a sex offender limiting places he may be employed at. MENTAL STATUS EXAM: General Appearance: Patient appears to be stated age is alert, directable, and attempts to cooperate. Patient appears to have poor hygiene and grooming. The patient appears disheveled and emaciated. Behavior: Patient is seated without any agitated behavior. Psychomotor activity is normal. Eye contact is appropriate. Speech: Patient's speech is fluent and nonpressured. Spontaneous, normal rate and volume. Mood/Affect: Patient reports their mood is depressed, affect is congruent and constricted. Suicidality/Homicidality: The patient currently endorses suicidal ideation but denies any homicidal ideation, intention, and/or plan. Perceptions: Patient denies any visual hallucinations and denies any auditory hallucinations Though content/process: There is no evidence of any delusional thought content and thought process is linear and goal-directed. Memory and concentration: AOX3, grossly intact for the purposes of this session. Can spell "WORLD" backwards Judgment and insight: Fair STRENGTHS/WEAKNESSES: Strength is that the patient is resourceful. Weakness is that the patient is homeless and unemployed. INTELLECT: average IMPRESSIONS: Major depressive disorder, recurrent, severe Nicotine dependence Cannabis use disorder, mild PLAN: -Patient is admitted under voluntary status to [facility] for stabilization of psychiatric symptoms and safety. Patient signed adult voluntary form and medication consent and is placed in patient's chart. -Medications : Will start patient on Remeron 15 mg at bedtime for depression/appetite stimulation Hold Xanax. It is recommended the patient not take benzodiazepines as frequently as he has been taking which predisposes him to dependence and abuse. -Haldol when necessary for agitation. Vistaril as needed for anxiety. -Patient was counselled on substance abuse and desired to cut back on use -Patient was informed of the risks, benefits and side effects of the medication and patient verbally consented to taking the medications. Patient signed med consent form and was placed in chart. -Internal Medicine consult to perform medical evaluation and physical. -NRT - nicotine patch - on board for discharge planning. Encourage patient to participate in groups to work on coping skills. 07/23/21 11:15
--- NOTE | 2021-07-23 15:27 | XR ---
EXAMINATION TYPE: XR chest 2V DATE OF EXAM: 07/23/2021 COMPARISON: Chest x-ray 04/03/2021 HISTORY: COPD and shortness of breath TECHNIQUE: Frontal and lateral views of the chest are obtained. FINDINGS: There is no focal air space opacity, pleural effusion, or pneumothorax seen. The cardiac silhouette size is unchanged and small. There is hyperinflation which could be indicative of underlyi ng COPD. The osseous structures are able, there is a spinal curvature and persistent changes of remot e fracture to the distal clavicle on the right, possible nonunion. IMPRESSION: No acute cardiopulmonary process.
--- NOTE | 2021-07-23 15:37 | CONS ---
CONSULTATION CHIEF COMPLAINT: Major depression. HISTORY OF PRESENT ILLNESS: This is another admission for this 51-year-old white male with COPD, malnutrition and homelessness. He has been trying to function by finding different places to sleep with long term and eating out of food jackie. He has had more and more difficulty and apparently became quite depressed and came into the hospital stating that he wanted to kill himself. He is poorly nourished and smokes excessively. REVIEW OF SYSTEMS: He denies any chest pain, headache, neurologic problems, abdominal pain, nausea, vomiting, urinary complaints, diarrhea, hematochezia, dysuria, etc. His past medical history, family history, personal and social histories reveal he is ALLERGIC TO SHELLFISH AND HORSERADISH WELL BEES. He has been on Xanax 2 mg t.i.d. p.r.n., Tylenol 3 occasionally p.r.n., ProAir, paroxetine 20 mg once a day, Atrovent HFA 2 puffs q.i.d., vitamin D3. Past medical history is otherwise not particularly remarkable. He states he has had a previous CVA in the past in 2012 without any sequelae. He had a heart catheterization in 2013 as well. He continues to smoke, but does not drink. PHYSICAL EXAMINATION: Blood pressure 106/70, pulse 63, respirations of 18, and he is afebrile. In general he appeared to be asthenic. He is awake and alert. Head, ears, eyes, nose, mouth and throat are normal. Neck veins are not distended. Chest demonstrated decreased breath sounds with occasional rales and rhonchi. Cardiac exam is normal with no murmurs or extra sounds. The abdomen is scaphoid and soft without masses or visceromegaly. Extremities are normal. Neurologically he is intact. He is admitted to the hospital with diagnoses: 1. Major depression with suicidal plan. 2. Chronic obstructive pulmonary disease. 3. Malnutrition. RECOMMENDATIONS: None at this time. MMODL / IJN: [id number] /
[2021-07-23] MEDS ORDERED: MIRTAZAPINE 15 MG TAB PO SCH (21:00)
[2021-07-24 07:14] LABS: Basophils # (A) 0.1 k/uL (0-0.2); Basophils % (A) 2 %; Eosinophils # (A) 0.4 k/uL (0-0.7); Eosinophils % (A) 5 %; HCT 43.3 % (39.0-53.0); HGB 13.4 gm/dL (13.0-17.5); Lymphocytes # (A) 2.7 k/uL (1.0-4.8); Lymphocytes % (A) 35 %; MCH 29.4 pg (25.0-35.0); MCHC 30.9 g/dL (31.0-37.0); Mean Platelet Volume 7.2; Monocytes # (A) 0.5 k/uL (0-1.0); Monocytes % (A) 6 %; Neutrophils # (A) 3.9 k/uL (1.3-7.7); Neutrophils % (A) 50 %; Platelet Count 335 k/uL (150-450); RBC 4.55 m/uL (4.30-5.90); RDW 13.5 % (11.5-15.5); WBC 7.8 k/uL (3.8-10.6)
[2021-07-24 07:44] LABS: ALT 17 U/L (4-49); AST 28 U/L (17-59); African American GFR (CKD) >90 (>60 ml/min/1.73 sqM); Albumin 3.8 g/dL (3.5-5.0); Alkaline Phosphatase 91 U/L (38-126); Anion Gap 6 mmol/L; Blood Urea Nitrogen 24 mg/dL (9-20); Calcium 9.7 mg/dL (8.4-10.2); Carbon Dioxide 27 mmol/L (22-30); Chloride 105 mmol/L (98-107); Glucose 89 mg/dL (74-99); Non-African American GFR(CKD) >90 (>60 ml/min/1.73 sqM); Sodium 138 mmol/L (137-145); Total Bilirubin 0.3 mg/dL (0.2-1.3); Total Protein 6.5 g/dL (6.3-8.2)
[2021-07-24] MEDS: NICOTINE 14MG/24HR PATCH TRANSDERM SCH (08:21)
[2021-07-24 08:42] VITALS: BP 117/70; PULSE 75; RESP 16; TEMP 96.9
--- NOTE | 2021-07-24 11:07 | P.DS ---
Providers Date of admission: 07/23/21 02:29 Expected date of discharge: 07/24/21 Attending physician: Hill Delgado MD Consults: 07/23/21 02:38 Consult Physician Routine Consulting Provider: Flash Schofield Consult Reason/Comments: H and P Do you want consulting provider notified?: Yes, Notify in am Primary care physician: Flash Schofield - Discharge Diagnosis(es) (1) Major depressive disorder, recurrent severe without psychotic features Current Visit: Yes Status: Acute Priority: High (2) Cannabis use disorder, mild, abuse Current Visit: Yes Status: Chronic Priority: Medium (3) Nicotine dependence Current Visit: Yes Status: Chronic Priority: Medium Hospital Course: Admission HPI: Patient is a single, unemployed, 51-year-old male with significant history of PTSD, schizoaffective disorder, and schizophrenia was admitted for s uicidal ideation in the context of recent homelessness. HPI: Patient presented to the hospital on 07/23/21, with a chief complaint of suicidal ideation with a plan to walk into traffic. The patient reports that he came to [facility] because he "felt like I was going to have a mental breakdown." He said he was staying at a friend's house but was kicked out last night. He states that he was in a constant argument with his friend's girlfriend who was also staying in the home. He reports that once he was kicked out of the house, he began experiencing suicidal ideation with plans to either jump in front of a truck or drowning himself. The patient states that even prior to being kicked out of the home, has been feeling increasing symptoms of depression including hopelessness, helplessness, decreased appetite, and elevated anxiety. The patient reports that he has had one prior attempt at suicide when he was 15 years old and he attempted to kill himself by thinking down in front of a police vehicle. He currently endorses suicidal ideation but denies any homicidal ideation, intention, and/or plan. In regards other mood symptoms, the patient does report that he has gone 2 days without any sleep on multiple occasions but denies any significant symptoms of pressured speech, impulsivity, grandiosity, or increased goal-directed behavior. The patient does report a remote history of auditory and visual hallucinations but denies any current at this time. He is not endorsing any paranoia or other delusions. The patient states that has been many years (at least 10) since his last experienced any symptoms. Patient states that he has been previously diagnosed with depression, bipolar disorder, schizoaffective disorder, and schizophrenia. The patient has had numerous inpatient psychiatric hospitalizations, with the last time being in October 2019 on this unit. The patient was diagnosed with major depressive disorder, cannabis use disorder, nicotine dependence. At that time, the patient presented with the same presentation as this admission with plans to walk in front of traffic. The patient was discharged on a regimen of Lexapro and melatonin at that time. Currently, the patient is not adherent with any psychotropic medications. He states that his previously described has not been taking it. He is currently prescribed Xanax from his primary care physician Dr. Schofield which he states he is adherent to. Patient denies any psychiatric outpatient follow-up. The patient reports one prior attempts at suicide in the past when he was 15 years old. Hospital course: Upon admission to the unit patient was initially endorsing depression and feeling very upset regarding his recent homelessness. Patient was however directable and agreeable to commence treatment. Patient got along well with other patients on the unit and followed unit protocol. Patient was compliant with the medications and denied any side effects throughout hospital course. Patient was started on Remeron 15 mg at bedtime to stimulate appetite and mood. Patient spoke of his stressors and engaged in therapy both group and individual. Patient was also seen by medical team for history and physical exam. Throughout the course of the hospitalization the patient displayed no significant symptoms of depression or anxiety. He participated in both individual and milieu activities, was out of bed, and in his meals appropriately. He is able to address his hygiene and grooming. The patient informed this provider that he wished to be discharged because he had a job at a [employer] for him this evening. On the day of discharge, the patient is not endorsing any suicidal or homicidal ideation, intention, and/or plan. He denies any access to firearms other weapons. He is future oriented and is wishing to go to work. He continues to express homelessness, but states that he has a friend who is willing to lend him a tent. He is currently not endorsing any auditory or visual hallucinations. He denies any paranoia or delusions. The patient was counseled on his medications including the risks, benefits, treatment alternatives of the medication. He was counseled on medication adherence and the importance of outpatient follow-up. Patient was counseled on substance abuse and was advised to avoid all substances including alcohol and marijuana. Patient is not presenting imminent risk of harm to self or others and is subsequently discharge. Mental status exam: General Appearance: Patient appears to be stated age is alert, pleasant, and cooperative. Patient is in no acute distress and has fair hygiene and grooming Behavior: Patient is calmly seated without any agitated behavior. Psychomotor activity is normal. Speech: Patient's speech is fluent and nonpressured. Mood/Affect: Patient reports their mood is "ready to go", affect is congruent and euthymic to bright. Suicidality/Homicidality: Patient denies having any suicidal or homicidal ideation intent or plan. Perceptions: Patient denies any auditory or visual hallucinations. Though content/process: There is no evidence of any delusional thought content and thought process is linear and goal-directed. The patient is future oriented. Memory and concentration: AOX3, grossly intact for the purposes of this session. Can spell "WORLD" backwards correctly. Judgment and insight: Improved Vital Signs Temp 96.9 F L 07/24/21 08:20 Pulse 75 07/24/21 08:20 Resp 16 07/24/21 08:20 BP 117/70 07/24/21 08:20 Pulse Ox 98 07/24/21 08:20 Intake & Output 07/23/21 07/24/21 07/24/21 18:59 06:59 18:59 Weight 54.4 kg Impression: Major depressive disorder, recurrent, severe Nicotine dependence Cannabis use disorder, mild Plan: -Continue with discharge today as patient has improved and stabilized psychiatrically and is not currently an imminent threat to himself and/or others. Patient is at increased risk due to his homelessness. -Continue medications: Remeron 15 mg at bedtime for depression/appetite stimulation. Habitrol patches for nicotine cessation -Patient was counseled on the need for medication compliance and appropriate follow-up at mental health and also primary care for medical issues. Patient verbalized understanding and agreed. -Social work to arrange for and conduct family meeting to ensure safety upon discharge and answer any questions/concerns. Social work also to arrange for patients follow up appointments for psychiatric care along with follow up with primary care provider. -Patient counseled on abstaining from recreational drugs and marijuana and alcohol. Was informed/educated on the adverse effects on their physical and mental health. Patient verbally agreed and understood. -Patient was instructed to return to the hospital or seek immediate medical care if their psychiatric or medical symptoms do worsen or reoccur. -Psychoeducation and supportive therapy provided to patient. Risks and benefits of pharmacological treatment versus the risks and benefits of nontreatment weight and discussed. Informed consent discussion held. Common side effects of psychotropics discussed such as, but not limited to headache, GI disturbance, sexual dysfunction, movement disorders, sedation, and orthostatic hypotension. Life threatening and blackbox warnings of prescribed medications also discussed. Potential risks of operating a vehicle or heavy machinery discussed with patient at length. Advised on importance of compliance and a reliable and responsible manner. Patient advised to review FDA consumer labeling of all medications prior to taking. Patient verbalized understanding of potential risks, and agrees with current treatment plan. Patient advised to medically contact physician/emergency personnel if any acute changes in condition occur. Allergies Allergy/AdvReac Type Severity Reaction Status Date / Time horseradish Allergy Anaphylaxis Verified 07/23/21 00:21 venom-wasp Allergy Anaphylaxis Verified 07/23/21 00:21 Laboratory Results WBC 7.8 k/uL (3.8-10.6) 07/24/21 06:35 RBC 4.55 m/uL (4.30-5.90) 07/24/21 06:35 Hgb 13.4 gm/dL (13.0-17.5) 07/24/21 06:35 Hct 43.3 % (39.0-53.0) 07/24/21 06:35 MCV 95.0 fL (80.0-100.0) 07/24/21 06:35 MCH 29.4 pg (25.0-35.0) 07/24/21 06:35 MCHC 30.9 g/dL (31.0-37.0) L 07/24/21 06:35 RDW 13.5 % (11.5-15.5) 07/24/21 06:35 Plt Count 335 k/uL (150-450) 07/24/21 06:35 MPV 7.2 07/24/21 06:35 Neutrophils % 50 % 07/24/21 06:35 Lymphocytes % 35 % 07/24/21 06:35 Monocytes % 6 % 07/24/21 06:35 Eosinophils % 5 % 07/24/21 06:35 Basophils % 2 % 07/24/21 06:35 Neutrophils # 3.9 k/uL (1.3-7.7) 07/24/21 06:35 Lymphocytes # 2.7 k/uL (1.0-4.8) 07/24/21 06:35 Monocytes # 0.5 k/uL (0-1.0) 07/24/21 06:35 Eosinophils # 0.4 k/uL (0-0.7) 07/24/21 06:35 Basophils # 0.1 k/uL (0-0.2) 07/24/21 06:35 Sodium 138 mmol/L (137-145) 07/24/21 06:35 Potassium 5.0 mmol/L (3.5-5.1) 07/24/21 06:35 Chloride 105 mmol/L (98-107) 07/24/21 06:35 Carbon Dioxide 27 mmol/L (22-30) 07/24/21 06:35 Anion Gap 6 mmol/L 07/24/21 06:35 BUN 24 mg/dL (9-20) H 07/24/21 06:35 Creatinine 0.80 mg/dL (0.66-1.25) 07/24/21 06:35 Est GFR (CKD-EPI)AfAm >90 (>60 ml/min/1.73 sqM) 07/24/21 06:35 Est GFR (CKD-EPI)NonAf >90 (>60 ml/min/1.73 sqM) 07/24/21 06:35 Glucose 89 mg/dL (74-99) 07/24/21 06:35 Calcium 9.7 mg/dL (8.4-10.2) 07/24/21 06:35 Total Bilirubin 0.3 mg/dL (0.2-1.3) 07/24/21 06:35 AST 28 U/L (17-59) 07/24/21 06:35 ALT 17 U/L (4-49) 07/24/21 06:35 Alkaline Phosphatase 91 U/L (38-126) 07/24/21 06:35 Total Protein 6.5 g/dL (6.3-8.2) 07/24/21 06:35 Albumin 3.8 g/dL (3.5-5.0) 07/24/21 06:35 TSH 1.230 mIU/L (0.465-4.680) 07/24/21 06:35 Coronavirus (PCR) Not Detected (Not Detectd) 07/23/21 02:34 Patient Condition at Discharge: Stable Plan - Discharge Summary Discharge Rx Participant: No New Discharge Prescriptions: New Mirtazapine [Remeron] 15 mg PO HS 30 Days tab Continue Albuterol Inhaler [Ventolin Hfa Inhaler] 2 puff INHALATION RT-Q6H PRN PRN Reason: Shortness Of Breath Cetirizine HCl [Zyrtec] 10 mg PO DAILY #30 tab Nicotine 21Mg/24Hr Patch [Habitrol] 1 patch TRANSDERM DAILY 30 Days patch Discontinued PARoxetine [Paxil] 30 mg PO HS 30 Days tab hydrOXYzine pamoate [Vistaril] 25 mg PO DAILY PRN 30 Days cap PRN Reason: Anxiety traZODone HCL [Desyrel] 100 mg PO HS 30 Days tab Acetaminophen Tab [Tylenol] 650 mg PO Q4HR PRN tab PRN Reason: Pain/Discomfort Discharge Medication List Albuterol Inhaler [Ventolin Hfa Inhaler] 2 puff INHALATION RT-Q6H PRN 05/12/20 [History] Cetirizine HCl [Zyrtec] 10 mg PO DAILY #30 tab 05/14/21 [Rx] Mirtazapine [Remeron] 15 mg PO HS 30 Days tab 07/24/21 [Rx] Nicotine 21Mg/24Hr Patch [Habitrol] 1 patch TRANSDERM DAILY 30 Days patch 07/24/21 [Rx] Follow up Appointment(s)/Referral(s): Flash Schofield MD [Primary Care Provider] - 1-2 days Activity/Diet/Wound Care/Special Instructions: Activity and diet as tolerated. Avoid the use of street drugs and alcohol. Take all medications as prescribed. When you are in need of refills on your medications please contact your medical provider and/or outpatient psychiatrist to have this done. Please go to scheduled outpatient appointment for aftercare treatment. If symptoms return or become worse, call the crisis line at and/or go to the nearest emergency room for evaluation. Discharge Disposition: HOME SELF-CARE
[2021-07-24 14:29] LABS: Chol/HDL Ratio 4.94 Ratio; LDL Cholesterol,Calculated 170.4 mg/dL (0.0-131.0)
== END 2021-07-24 13:45 | disposition home or self-care (01) | DRG 885 ==
LOC: EC 00:18 → 3MHU 02:29
PROVIDERS: ADMIT Psychiatry & Neurology Psychiatry; ATTEND Psychiatry & Neurology Psychiatry
DX: F33.2 Major depressive disorder, recurrent severe without psychotic features (principal); R45.851 Suicidal ideations; E46 Unspecified protein-calorie malnutrition; Z68.1 Body mass index [BMI] 19.9 or less, adult; J44.9 Chronic obstructive pulmonary disease, unspecified; Z20.822 Contact with and (suspected) exposure to COVID-19; F43.10 Post-traumatic stress disorder, unspecified; F12.10 Cannabis abuse, uncomplicated; I25.2 Old myocardial infarction; F17.210 Nicotine dependence, cigarettes, uncomplicated; Z71.6 Tobacco abuse counseling; Z79.899 Other long term (current) drug therapy; Z56.0 Unemployment, unspecified; Z86.73 Personal history of transient ischemic attack (TIA), and cerebral infarction without residual deficits; Z86.69 Personal history of other diseases of the nervous system and sense organs; Z59.0 Homelessness; Z71.3 Dietary counseling and surveillance; Z91.030 Bee allergy status; Z91.013 Allergy to seafood; Z91.018 Allergy to other foods; Z82.49 Family history of ischemic heart disease and other diseases of the circulatory system; Z83.3 Family history of diabetes mellitus; Z82.3 Family history of stroke; Z82.5 Family history of asthma and other chronic lower respiratory diseases
CPT/HCPCS: 71046; 80053; 80061; 82075; 83036; 84443; 85025; 87635; 99285

== ENCOUNTER 2021-07-29 03:27 | Emergency (ER) | payer OTHER ==
[2021-07-29 03:48] VITALS: RESP 18; TEMP 97.8
[2021-07-29] MEDS ORDERED: ACETAMINOPHEN TAB 500 MG TAB PO STA (03:49)
[2021-07-29] MEDS ORDERED: diphenhydrAMINE 25 MG CAP PO STA (03:49)
[2021-07-29] MEDS ORDERED: IBUPROFEN 800 MG TAB PO STA (03:49)
[2021-07-29] MEDS ORDERED: PROCHLORPERAZINE 5 MG TAB PO STA (03:49)
--- NOTE | 2021-07-29 03:53 | ED ---
Headache HPI - General Chief Complaint: Headache Stated Complaint: Mental health Time Seen by Provider: 07/29/21 03:31 Source: RN notes reviewed, old records reviewed Mode of arrival: ambulatory Limitations: no limitations - History of Present Illness Initial Comments: This is a 51-year-old male to the ER today. Patient is well-known to our facility. Patient presents for some headache this. Patient states is he needs a place to rest for a few hours. Patient denies homicidal or suicidal thoughts MD Complaint: headache -: days(s) Onset Description: gradual Location: right, left Severity scale (1-10): 4 Quality: aching, throbbing Consistency: intermittent Improves With: nothing Worsens With: none Associated Symptoms: nausea Other Symptoms: cough Treatments Prior to Arrival: none - Related Data Home Medications Medication Instructions Recorded Confirmed Albuterol Inhaler [Ventolin Hfa 2 puff INHALATION RT-Q6H PRN 05/12/20 03/08/21 Inhaler] Previous Rx's Medication Instructions Recorded Cetirizine HCl [Zyrtec] 10 mg PO DAILY #30 tab 05/14/21 Mirtazapine [Remeron] 15 mg PO HS 30 Days tab 07/24/21 Nicotine 21Mg/24Hr Patch [Habitrol] 1 patch TRANSDERM DAILY 30 Days 07/24/21 patch Allergies Allergy/AdvReac Type Severity Reaction Status Date / Time horseradish Allergy Anaphylaxis Verified 07/29/21 03:44 venom-wasp Allergy Anaphylaxis Verified 07/29/21 03:44 Review of Systems ROS Statement: Those systems with pertinent positive or pertinent negative responses have been documented in the HPI. ROS Other: All systems not noted in ROS Statement are negative. 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 Past Anesthesia/Blood Transfusion Reactions: Unable to Obtain Additional Past Anesthesia/Blood Transfusion Reaction / Comment(s): Pt has never had general/spinal anesthesia Past Psychological History: Anxiety, Bipolar, Depression, PTSD, Schizoaffective Disorder, Schizophrenia Smoking Status: Current every day smoker Past Alcohol Use History: Occasional Past Drug Use History: Marijuana - Past Family History Mother Family Medical History: CVA/TIA, Diabetes Mellitus, Myocardial Infarction ([place]) Father Additional Family Medical History / Comment(s): Emphesema General Exam Limitations: no limitations General appearance: alert, in no apparent distress Head exam: Present: atraumatic, normocephalic, normal inspection Eye exam: Present: normal appearance, PERRL, EOMI. Absent: scleral icterus, conjunctival injection, periorbital swelling ENT exam: Present: normal exam, mucous membranes moist Neck exam: Present: normal inspection. Absent: tenderness, meningismus, lymphadenopathy Respiratory exam: Present: normal lung sounds bilaterally. Absent: respiratory distress, wheezes, rales, rhonchi, stridor Cardiovascular Exam: Present: regular rate, normal rhythm, normal heart sounds. Absent: systolic murmur, diastolic murmur, rubs, gallop, clicks GI/Abdominal exam: Present: soft, normal bowel sounds. Absent: distended, tenderness, guarding, rebound, rigid Extremities exam: Present: normal inspection, full ROM, normal capillary refill. Absent: tenderness, pedal edema, joint swelling, calf tenderness Back exam: Present: normal inspection Neurological exam: Present: alert, oriented X3, CN II-XII intact Psychiatric exam: Present: normal affect, normal mood Skin exam: Present: warm, dry, intact, normal color. Absent: rash Course Vital Signs 07/29/21 03:38 Temperature 97.8 F Pulse Rate 58 L Respiratory 18 Rate Blood Pressure 112/69 O2 Sat by Pulse 98 Oximetry - Reevaluation(s) Reevaluation #1: 07/29/21 03:52 Medical record is reviewed Reevaluation #2: 07/29/21 03:52 Headache is resolved Reevaluation #3: 07/29/21 03:52 Patient feels comfortable for discharge Medical Decision Making - Medical Decision Making 51 male to the emergency department for evaluation patient presents today for evaluation regards to headache, these place to sleep. Symptoms improved and he can be discharged Disposition Clinical Impression: Anxiety disorder, Headache Disposition: HOME SELF-CARE Condition: Fair Instructions (If sedation given, give patient instructions): Acute Headache (ED) Is patient prescribed a controlled substance at d/c from ED?: No Referrals: Flash Schofield MD [Primary Care Provider] - 1-2 days
[2021-07-29 06:41] VITALS: BP 106/73; PULSE 60
== END 2021-07-29 04:46 | disposition home or self-care (01) ==
LOC: EC 03:27
DX: R51.9 Headache, unspecified (principal); F41.9 Anxiety disorder, unspecified; J44.9 Chronic obstructive pulmonary disease, unspecified; F17.200 Nicotine dependence, unspecified, uncomplicated; F12.90 Cannabis use, unspecified, uncomplicated; Z79.51 Long term (current) use of inhaled steroids; Z79.899 Other long term (current) drug therapy
CPT/HCPCS: 99283; S0183

== ENCOUNTER 2021-07-30 22:48 | Emergency (ER) | payer OTHER ==
--- NOTE | 2021-07-31 00:35 | ED ---
URI HPI - General Chief Complaint: Upper Respiratory Infection Stated Complaint: THADDEUS Time Seen by Provider: 07/31/21 00:19 Source: patient, RN notes reviewed, old records reviewed Mode of arrival: ambulatory Limitations: no limitations - History of Present Illness Initial Comments: This is a 49-year-old male to the emergency department today for evaluation of cough congestion. Patient is well-known to our facility, homeless, multiple nitro has been spent in the emergency department. Patient denying any chest pain no fevers no other complaints, asking for fluids and which. MD Complaint: cough -: hour(s) Severity: mild Severity scale (1-10): 2 Quality: dull Consistency: constant Improves With: nothing Treatments Prior to Arrival: none - Related Data Home Medications Medication Instructions Recorded Confirmed Albuterol Inhaler [Ventolin Hfa 2 puff INHALATION RT-Q6H PRN 05/12/20 03/08/21 Inhaler] Previous Rx's Medication Instructions Recorded Cetirizine HCl [Zyrtec] 10 mg PO DAILY #30 tab 05/14/21 Mirtazapine [Remeron] 15 mg PO HS 30 Days tab 07/24/21 Nicotine 21Mg/24Hr Patch [Habitrol] 1 patch TRANSDERM DAILY 30 Days 07/24/21 patch Allergies Allergy/AdvReac Type Severity Reaction Status Date / Time horseradish Allergy Anaphylaxis Verified 07/29/21 03:44 venom-wasp Allergy Anaphylaxis Verified 07/29/21 03:44 Review of Systems ROS Statement: Those systems with pertinent positive or pertinent negative responses have been documented in the HPI. ROS Other: All systems not noted in ROS Statement are negative. 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 Past Anesthesia/Blood Transfusion Reactions: Unable to Obtain Additional Past Anesthesia/Blood Transfusion Reaction / Comment(s): Pt has never had general/spinal anesthesia Past Psychological History: Anxiety, Bipolar, Depression, PTSD, Schizoaffective Disorder, Schizophrenia Smoking Status: Current every day smoker Past Alcohol Use History: Occasional Past Drug Use History: Marijuana - Past Family History Mother Family Medical History: CVA/TIA, Diabetes Mellitus, Myocardial Infarction ([place]) Father Additional Family Medical History / Comment(s): Emphesema General Exam Limitations: no limitations General appearance: alert, in no apparent distress Head exam: Present: atraumatic, normocephalic, normal inspection Eye exam: Present: normal appearance, PERRL, EOMI. Absent: scleral icterus, conjunctival injection, periorbital swelling ENT exam: Present: normal exam, mucous membranes moist Neck exam: Present: normal inspection. Absent: tenderness, meningismus, lymphadenopathy Respiratory exam: Present: normal lung sounds bilaterally. Absent: respiratory distress, wheezes, rales, rhonchi, stridor Cardiovascular Exam: Present: regular rate, normal rhythm, normal heart sounds. Absent: systolic murmur, diastolic murmur, rubs, gallop, clicks GI/Abdominal exam: Present: soft, normal bowel sounds. Absent: distended, tenderness, guarding, rebound, rigid Extremities exam: Present: normal inspection, full ROM, normal capillary refill. Absent: tenderness, pedal edema, joint swelling, calf tenderness Back exam: Present: normal inspection Neurological exam: Present: alert, oriented X3, CN II-XII intact Psychiatric exam: Present: normal affect, normal mood Skin exam: Present: warm, dry, intact, normal color. Absent: rash Course Vital Signs 07/30/21 07/31/21 23:33 01:34 Temperature 97.8 F Pulse Rate 66 Respiratory 19 20 Rate Blood Pressure 113/77 O2 Sat by Pulse 97 Oximetry - Reevaluation(s) Reevaluation #1: 07/31/21 02:13 Medical record is reviewed Reevaluation #2: 07/31/21 02:13 Symptoms are improved Reevaluation #3: 07/31/21 02:13 Patient is in no distress and has no complaints Medical Decision Making - Medical Decision Making 51 male to the emergency department for evaluation patient presents today for evaluation regarding cough and congestion x-ray is negative and patient can be discharged home - Radiology Data Radiology results: report reviewed (Chest x-rays negative for acute disease), image reviewed Disposition Clinical Impression: Upper respiratory tract infection Disposition: HOME SELF-CARE Condition: Good Instructions (If sedation given, give patient instructions): Upper Respiratory Infection (ED) Is patient prescribed a controlled substance at d/c from ED?: No Referrals: Flash Schofield MD [Primary Care Provider] - 1-2 days
--- NOTE | 2021-07-31 00:50 | XR ---
EXAMINATION TYPE: XR chest 2V DATE OF EXAM: 07/30/2021 COMPARISON: 07/23/2021 HISTORY: Short of breath TECHNIQUE: FINDINGS: Heart and mediastinum are normal. Lungs are clear. Diaphragm is normal. Bony thorax appears normal. Pulmonary vascularity is normal. IMPRESSION: Normal chest. No change.
[2021-07-31 01:34] VITALS: RESP 20
[2021-07-31 06:26] VITALS: BP 112/78; PULSE 74; TEMP 98.3
== END 2021-07-31 06:34 | disposition home or self-care (01) ==
LOC: EC 22:48
DX: J06.9 Acute upper respiratory infection, unspecified (principal); F31.9 Bipolar disorder, unspecified; F41.9 Anxiety disorder, unspecified; F25.9 Schizoaffective disorder, unspecified; J44.9 Chronic obstructive pulmonary disease, unspecified; I25.2 Old myocardial infarction; F17.200 Nicotine dependence, unspecified, uncomplicated; Z59.0 Homelessness; Z86.73 Personal history of transient ischemic attack (TIA), and cerebral infarction without residual deficits; Z83.3 Family history of diabetes mellitus; Z82.49 Family history of ischemic heart disease and other diseases of the circulatory system; Z79.899 Other long term (current) drug therapy; Z79.51 Long term (current) use of inhaled steroids
CPT/HCPCS: 71046; 99283

== ENCOUNTER 2021-08-02 22:29 | Emergency (ER) | payer OTHER ==
[2021-08-02 22:45] VITALS: BP 113/70; PULSE 75; RESP 20; TEMP 98.2
--- NOTE | 2021-08-02 22:52 | ED ---
Weakness HPI - General Chief complaint: Shortness of Breath Stated complaint: Chest pain, Shortness of Breath Time Seen by Provider: 08/02/21 22:38 Source: patient, RN notes reviewed, old records reviewed Mode of arrival: ambulatory Limitations: no limitations - History of Present Illness Initial comments: This is a 51-year-old male to the emergency. Patient Dese for evaluation of shortness of breath cough or congestion chest pain. Patient is well-known to our emergency department. Usually presenting for evaluation secondary to homelessness and needing a place to stay or food or drink. He has no fevers or other MD Complaint: generalized weakness -: days(s) Location: generalized Severity: mild Severity scale (1-10): 3 Consistency: constant Improves with: none Worsens with: none Context: history of similar Associated Symptoms: denies other symptoms - Related Data Home Medications Medication Instructions Recorded Confirmed Albuterol Inhaler [Ventolin Hfa 2 puff INHALATION RT-Q6H PRN 05/12/20 08/02/21 Inhaler] Acetaminophen-Codeine 300-30mg 1 tab PO TID PRN 08/02/21 08/02/21 [Tylenol w/codeine #3] Ergocalciferol [Vitamin D2 (1250 1,250 mcg PO Q28D 08/02/21 08/02/21 Mcg = 84850 Iu)] Ipratropium Sidney [Atrovent Hfa] 1 - 2 puff INHALATION RT-QID PRN 08/02/21 08/02/21 Allergies Allergy/AdvReac Type Severity Reaction Status Date / Time horseradish Allergy Anaphylaxis Verified 08/02/21 23:23 venom-wasp Allergy Anaphylaxis Verified 08/02/21 23:23 Review of Systems ROS Statement: Those systems with pertinent positive or pertinent negative responses have been documented in the HPI. ROS Other: All systems not noted in ROS Statement are negative. 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 Past Anesthesia/Blood Transfusion Reactions: Unable to Obtain Additional Past Anesthesia/Blood Transfusion Reaction / Comment(s): Pt has never had general/spinal anesthesia Past Psychological History: Anxiety, Bipolar, Depression, PTSD, Schizoaffective Disorder, Schizophrenia Smoking Status: Current every day smoker Past Alcohol Use History: Occasional Past Drug Use History: Marijuana - Past Family History Mother Family Medical History: CVA/TIA, Diabetes Mellitus, Myocardial Infarction ([place]) Father Additional Family Medical History / Comment(s): Emphesema General Exam General appearance: alert, in no apparent distress Head exam: Present: atraumatic, normocephalic, normal inspection Eye exam: Present: normal appearance, PERRL, EOMI. Absent: scleral icterus, conjunctival injection, periorbital swelling ENT exam: Present: normal exam, mucous membranes moist Neck exam: Present: normal inspection. Absent: tenderness, meningismus, lymphadenopathy Respiratory exam: Present: normal lung sounds bilaterally. Absent: respiratory distress, wheezes, rales, rhonchi, stridor Cardiovascular Exam: Present: regular rate, normal rhythm, normal heart sounds. Absent: systolic murmur, diastolic murmur, rubs, gallop, clicks GI/Abdominal exam: Present: soft, normal bowel sounds. Absent: distended, tenderness, guarding, rebound, rigid Extremities exam: Present: normal inspection, full ROM, normal capillary refill. Absent: tenderness, pedal edema, joint swelling, calf tenderness Back exam: Present: normal inspection Neurological exam: Present: alert, oriented X3, CN II-XII intact Psychiatric exam: Present: normal affect, normal mood Skin exam: Present: warm, dry, intact, normal color. Absent: rash Course Vital Signs 08/02/21 22:42 Temperature 98.2 F Pulse Rate 75 Respiratory 20 Rate Blood Pressure 113/70 O2 Sat by Pulse 96 Oximetry - Reevaluation(s) Reevaluation #1: 08/02/21 23:22 Medical record is reviewed EKG Findings - EKG Comments: EKG Findings:: EKG is sinus rhythm 63 AR 134 QRS 88 QTc 409 Medical Decision Making - Medical Decision Making 51 male able to eat and drink here in our emergency department, x-ray and EKG are negative and can be discharged home - Radiology Data Radiology results: report reviewed (Chest x-rays negative for acute disease), image reviewed Disposition Clinical Impression: Chest pain Disposition: HOME SELF-CARE Condition: Good Instructions (If sedation given, give patient instructions): Chest Pain (ED) Is patient prescribed a controlled substance at d/c from ED?: No Referrals: Flash Schofield MD [Primary Care Provider] - 1-2 days
--- NOTE | 2021-08-02 23:15 | XR ---
EXAMINATION TYPE: XR chest 1V portable DATE OF EXAM: 08/02/2021 COMPARISON: 07/30/2021 HISTORY: Chest pain TECHNIQUE: Single view FINDINGS: Heart is normal. Lungs are clear of infiltrate. There is no heart failure. There are no hil ar masses. Bony thorax is intact. IMPRESSION: No active cardiopulmonary disease. Normal heart. No change.
== END 2021-08-03 00:14 | disposition home or self-care (01) ==
LOC: EC 22:29
DX: R07.9 Chest pain, unspecified (principal); R06.02 Shortness of breath; R53.1 Weakness; J44.9 Chronic obstructive pulmonary disease, unspecified; I25.2 Old myocardial infarction; F31.9 Bipolar disorder, unspecified; F17.200 Nicotine dependence, unspecified, uncomplicated; F25.9 Schizoaffective disorder, unspecified; F12.90 Cannabis use, unspecified, uncomplicated; Z79.899 Other long term (current) drug therapy; Z86.73 Personal history of transient ischemic attack (TIA), and cerebral infarction without residual deficits; Z59.0 Homelessness
CPT/HCPCS: 71045; 93005; 99285

== ENCOUNTER 2021-08-05 00:25 | Inpatient (IN) | payer MEDICAID, OTHER ==
[2021-08-05 04:37] LABS: Amphetamine Screen,Urine Detected (NotDetected); Barbiturate Screen,Urine Not Detected (NotDetected); Benzodiazepines Screen,Urine Not Detected (NotDetected); Cocaine Screen,Urine Not Detected (NotDetected); Methadone Screen, Urine Not Detected (NotDetected); Opiate Screen,Urine Not Detected (NotDetected); Oxycodone Screen, Urine Not Detected (NotDetected); Phencyclidine Screen,Urine Not Detected (NotDetected); Tricyclic Antidepressant,Urine Not Detected (NotDetected); Urn Cannabinoid Scrn Detected (NotDetected)
[2021-08-05] MEDS ORDERED: TEMAZEPAM 15 MG CAP PO PRN (05:19)
[2021-08-05] MEDS ORDERED: MAGNESIUM HYDROXIDE 2,400 MG/10 ML CUP PO PRN (05:19)
[2021-08-05] MEDS ORDERED: ACETAMINOPHEN TAB 325 MG TAB PO PRN (05:19)
[2021-08-05] MEDS ORDERED: MAG HYDROX/AL HYDROX/SIMETH 30 ML CUP PO PRN (05:19)
[2021-08-05] MEDS ORDERED: LORazepam 1 MG TAB PO PRN (05:24)
[2021-08-05] MEDS ORDERED: LORazepam 2 MG/ML INJ IM PRN (05:24)
[2021-08-05] MEDS ORDERED: haloperidoL 5 MG TAB PO PRN (05:25)
[2021-08-05] MEDS ORDERED: HALOPERIDOL LACTATE 5 MG/ML 1 ML VIAL IM PRN (05:25)
[2021-08-05] MEDS: NICOTINE 21MG/24HR PATCH TRANSDERM SCH (08:04)
[2021-08-05] MEDS ORDERED: hydrOXYzine pamoate 25 MG CAP PO PRN (11:37)
--- NOTE | 2021-08-05 12:51 | P.HP ---
Psychiatric H&P - . H&P Date: 08/05/21 History & Physical: Allergies Allergy/AdvReac Type Severity Reaction Status Date / Time horseradish Allergy Anaphylaxis Verified 08/05/21 00:32 venom-wasp Allergy Anaphylaxis Verified 08/05/21 00:32 Vital Signs Temp 97.2 F L 08/05/21 06:08 Pulse 84 08/05/21 06:08 Resp 20 08/05/21 06:08 BP 94/62 08/05/21 06:08 Pulse Ox 95 08/05/21 06:08 Intake & Output 08/04/21 08/05/21 08/05/21 18:59 06:59 18:59 Weight 53.524 kg Laboratory Last Values Urine Opiates Screen Not Detected (NotDetected) 08/05/21 03:12 Ur Oxycodone Screen Not Detected (NotDetected) 08/05/21 03:12 Urine Methadone Screen Not Detected (NotDetected) 08/05/21 03:12 Ur Propoxyphene Screen Not Detected (NotDetected) 08/05/21 03:12 Ur Barbiturates Screen Not Detected (NotDetected) 08/05/21 03:12 U Tricyclic Antidepress Not Detected (NotDetected) 08/05/21 03:12 Ur Phencyclidine Scrn Not Detected (NotDetected) 08/05/21 03:12 Ur Amphetamines Screen Detected (NotDetected) H 08/05/21 03:12 U Methamphetamines Scrn Detected (NotDetected) H 08/05/21 03:12 U Benzodiazepines Scrn Not Detected (NotDetected) 08/05/21 03:12 Urine Cocaine Screen Not Detected (NotDetected) 08/05/21 03:12 U Marijuana (THC) Screen Detected (NotDetected) H 08/05/21 03:12 Coronavirus (PCR) Not Detected (Not Detectd) 08/05/21 03:12 08/05/21 12:50 IDENTIFYING DATA: Patient is a single, unemployed, 51-year-old male with significant history of PTSD, schizoaffective disorder and schizophrenia who was admitted for suicidal ideation the context of homelessness. HPI: The patient was initially admitted to the psychiatric unit on 07/23/21 and was discharged on 07/24/21. The patient missed his appointment with [facility] on 07/29/2021. He is now scheduled for an appointment on . The patient states to the EPS nurse last night that he is feeling increased depression and suicidal ideation with many plans. He reported to the EPS nurse that he had plans to overdose, jump in the river, and get hit by a car, or cut his wrists. The patient admitted to the EPS nurse that much of his depression is due to his homelessness. Upon evaluation on the psychiatric unit, the patient continues to endorse increased feelings of depression. He states that he is currently homeless and has nowhere to go. He reports that he cannot go to the snf because they do not allow him to smoke marijuana there. The patient states that he is feeling increasingly suicidal and continues to endorse the same plans mentioned above. Despite this, the patient is not endorsing any significant issues regarding his appetite. He reports that his sleep has been inconsistent due to his homeless situation. The patient states that he does have significant issues regarding his irritability and anxiety. He states that Dr. Schofield placed him on Xanax and this medication along with marijuana are the only things that keep him calm. He then later relented that if he is on medications, he does not need to use Xanax or marijuana when he is stable. During the last admission, the patient requested to be discharged because he had a volunteer opportunity working at a [employer]. It is questionable at this time whether this patient is malingering. PAST PSYCHIATRIC HISTORY: The patient was most recently admitted to the psychiatric unit and discharged 2 weeks ago. He has previous diagnoses of depression, bipolar disorder, schizoaffective disorder, and schizophrenia. The patient reports that he has had multiple inpatient psychiatric hospitalizations, and prior to the admission 2 weeks ago, his last admission was in October 2019. The patient has been constantly presenting to this unit with the same complaint of suicidal ideation all in the context of his homelessness. The patient has not been in adherent with his prescribed psychotropic medications. He is currently not following up with his outpatient appointments. He does report one prior attempt at suicide when he was 15 years old. 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 Past Anesthesia/Blood Transfusion Reactions: Unable to Obtain Additional Past Anesthesia/Blood Transfusion Reaction / Comment(s): Pt has never had general/spinal anesthesia Past Psychological History: Anxiety, Bipolar, Depression, PTSD, Schizoaffective Disorder, Schizophrenia Smoking Status: Current every day smoker Past Alcohol Use History: Occasional Past Drug Use History: Marijuana ALLERGIES: Horse radish, wasp venom CHEMICAL DEPENDENCY HISTORY: Patient reports he smokes one and half packs per day of tobacco. He denies any significant alcohol use. He reports marijuana use. FAMILY PSYCHIATRIC/SUBSTANCE USE HISTORY: The patient denies any significant family psychiatric history or history of substance abuse. SOCIAL HISTORY: Patient was born and raised in [place], [place]. He is single, never , but has a 6-year-old son who is living in [place]. The patient is currently homeless and reports no source of income. He has been denied disability. The patient maintains that he cannot work due to his health issues, in particular his asthma. The patient dropped out of school in the 10th grade. He reports no service, worship affiliation, or current legal problems. The patient did [facility] years in [facility] for criminal sexual conduct. He was released in 2002. He is a registered sex offender. He reports that it has been difficulty finding work due to his sex offender status. MENTAL STATUS EXAM: General Appearance: Patient appears to be stated age is alert, directable, and attempts to cooperate. Patient appears to have poor hygiene and grooming. The patient appears to be emaciated with a thin build. Behavior: Patient is seated without any agitated behavior. Eye contact is appropriate. Psychomotor activity is normal. Speech: Patient's speech is fluent and nonpressured. Mood/Affect: Patient reports their mood is depressed, affect is congruent and euthymic. Suicidality/Homicidality: Patient denies having any homicidal ideation intent or plan. Patient admits to suicidal ideation. Perceptions: Patient denies any visual hallucinations and denies any auditory hallucinations Though content/process: There is no evidence of any delusional thought content and thought process is linear and goal-directed. Memory and concentration: AOX3, grossly intact for the purposes of this session. Can spell "WORLD" backwards Judgment and insight: Very poor STRENGTHS/WEAKNESSES: Strength is that the patient is resourceful. Weakness that the patient is homeless, unemployed, and nonadherent with treatment. INTELLECT: average IMPRESSIONS: Major depressive disorder, recurrent, severe Nicotine dependence Cannabis use disorder, mild Rule out malingering - the patient has had multiple inpatient psychiatric admissions with the same presentation, typically suicidal ideation in the context of his homelessness. The patient is very hesitant to use the snf as he is not happy with treatment there or following the rules. Suspect secondary gain for housing and snf along with meals on the psychiatric unit. Rule out methamphetamine abuse -patient tested positive for methamphetamines. PLAN: -Patient is admitted under voluntary status to [facility] for stabilization of psychiatric symptoms and safety. Patient signed adult voluntary form and medication consent and is placed in patient's chart. -Medications : Will start patient on Zoloft 50 mg daily for depression Remeron 15 mg by mouth at bedtime for depression/insomnia/appetite stimulation -Vistaril and Haldol PRN for agitation/aggression -Patient was counselled on substance abuse but refuses to acknowledge that cannabis may be contributing to ongoing mental health issues -Patient was informed of the risks, benefits and side effects of the medication and patient verbally consented to taking the medications. -Internal Medicine consult to perform medical evaluation and physical. -NRT - nicotine patch -SW on board for discharge planning. Encourage patient to participate in groups to work on coping skills. 08/05/21 12:50
[2021-08-05 15:00] VITALS: BMI 16.0
[2021-08-05] MEDS: MIRTAZAPINE 15 MG TAB PO SCH (21:27)
[2021-08-06 06:09] VITALS: RESP 18
[2021-08-06] MEDS: SERTRALINE 50 MG TAB PO SCH (08:33)
[2021-08-06] MEDS: NICOTINE 21MG/24HR PATCH TRANSDERM SCH (08:33)
--- NOTE | 2021-08-06 10:55 | P.PN ---
Progress Note - Text Progress Note Date: 08/06/21 Interval History: Patient was seen lying in bed this morning and was directable and agreeable to speak with life insurance underwriter in the office. Patient was fairly alert and had a poverty of content. He was fairly directable during conversation. He claims that he is feeling better today with regards to his mood and anxiety. He spoke about being homeless and not being able to go back to the senior care. He minimized his drug use and quitting methamphetamine and states that "I only did it once" and is refusing rehab at this time. He states that he was able to sleep fairly last night without any problems. She claims that she has not showered yet but will plan to shower today and go to some groups. At this time patient denies any suicidal or homical ideations, intent or plan. Patient denies any auditory, visual hallucinations and denies any paranoia or delusions. Patient denies any side effects from the medications and has been compliant with meds. Mental Status Exam: General Appearance: Patient appears to be thin, older than stated age is alert, directable, and attempts to cooperate. Patient appears to have poor hygiene and grooming. Behavior: Patient is seated without any agitated behavior. Eye contact is appropriate. Psychomotor activity is normal. Speech: Patient's speech is fluent and nonpressured. Mood/Affect: Patient reports their mood is "getting better", affect is congruent Suicidality/Homicidality: Patient denies having any homicidal ideation intent or plan. Patient denies any suicidal ideation. Perceptions: Patient denies any visual hallucinations and denies any auditory hallucinations Though content/process: There is no evidence of any delusional thought content and thought process is linear and goal-directed. [place] Memory and concentration: AOX3, grossly intact for the purposes of this session. Judgment and insight: Chronically poor, improving mildly Assessment Major depressive disorder, recurrent, severe Nicotine dependence Cannabis use disorder, mild Rule out malingering Rule out methamphetamine abuse Plan: -Patient continues to meet criteria for inpatient psychiatric admission for symptom stabilization and safety. Patient has signed adult voluntary form and was placed in patient's chart. -Medications: Continue with Zoloft 50 mg daily for depression, Remeron 15 mg daily at bedtime for depression/insomnia/appetite. -When necessary Ativan and Haldol for agitation/aggression. -NRT - nicotine patch -SW on board for discharge planning. Encouraged the patient to participate in milieu. Likely discharge tomorrow.
--- NOTE | 2021-08-06 16:56 | CONS ---
CONSULTATION CHIEF COMPLAINT: Depression. HISTORY OF PRESENT ILLNESS: This is another recent admission for this 51-year-old white male who was just in the psych unit several weeks ago. He is homeless. He has problems with nutrition and he smokes a great deal. Apparently the depression became worse and he came back. REVIEW OF SYSTEMS: He has had no headaches, neurologic problems, chest pain, cough, hemoptysis, abdominal pain, nausea, vomiting, diarrhea, melena, jaundice, renal failure, dysuria, frequency, urgency, diabetes, etc. Past medical history, family history, and personal and social histories are unremarkable and can be found in his admitting summary. He is ALLERGIC TO NUMEROUS THINGS, such as HORSERADISH, SHELLFISH, BEES, but no medications. He has been on ProAir inhaler, Paxil 20 mg, vitamin D and Atrovent. He continues to smoke heavily, about 1-1/2 half packs a day. PHYSICAL EXAMINATION: Blood pressure 112/54, pulse 52 and regular, respirations of 35, and he is afebrile. In general he appeared to be marginally nourished and in no acute distress. He was tanned. Head, ears, eyes, nose, mouth and throat were otherwise normal. Neck veins were not distended. Chest was clear. Cardiac exam was normal. Abdomen was soft and nontender. Extremities were normal. Neurologically he is intact. He is admitted to the hospital with diagnoses: 1. Depression. 2. Chronic obstructive pulmonary disease. 3. Malnutrition. RECOMMENDATIONS: None at this time. MMODL / IJN: [id number] /
[2021-08-06] MEDS: MIRTAZAPINE 15 MG TAB PO SCH (20:07)
[2021-08-07 06:39] VITALS: BP 107/62; PULSE 70; TEMP 97.5
[2021-08-07] MEDS: SERTRALINE 50 MG TAB PO SCH (08:29)
[2021-08-07] MEDS: NICOTINE 21MG/24HR PATCH TRANSDERM SCH (08:29)
--- NOTE | 2021-08-07 10:10 | P.DS ---
Providers Date of admission: 08/05/21 05:08 Expected date of discharge: 08/07/21 Attending physician: Hill Delgado MD Consults: 08/05/21 05:19 Consult Physician Routine Consulting Provider: Jimena Garcia Consult Reason/Comments: H & P w/medical management Do you want consulting provider notified?: Already Contacted Primary care physician: Flash Schofield - Discharge Diagnosis(es) (1) Major depressive disorder without psychotic features Current Visit: Yes Status: Acute Priority: High (2) Nicotine dependence Current Visit: Yes Status: Acute Priority: Low (3) Cannabis use disorder, mild, abuse Current Visit: Yes Status: Acute Priority: Medium (4) Methamphetamine abuse Current Visit: Yes Status: Acute Priority: Medium Hospital Course: Admission HPI: Admission note was completed by Dr. Delgado "Patient is a single, unemployed, 51-year-old male with significant history of PTSD, schizoaffective disorder and schizophrenia who was admitted for suicidal ideation the context of homelessness. The patient was initially admitted to the psychiatric unit on 07/23/21 and was discharged on 07/24/21. The patient missed his appointment with [facility] on 07/29/2021. He is now scheduled for an appointment on . The patient states to the EPS nurse last night that he is feeling increased depression and suicidal ideation with many plans. He reported to the EPS nurse that he had plans to overdose, jump in the river, and get hit by a car, or cut his wrists. The patient admitted to the EPS nurse that much of his depression is due to his homelessness. Upon evaluation on the psychiatric unit, the patient continues to endorse increased feelings of depression. He states that he is currently homeless and has nowhere to go. He reports that [facility] to the [facility] because they do not allow him to smoke marijuana there. The patient states that he is feeling increasingly suicidal and continues to endorse the same plans mentioned above. Despite this, the patient is not endorsing any significant issues regarding his appetite. He reports that his sleep has been inconsistent due to his homeless situation. The patient states that he does hav e significant issues regarding his irritability and anxiety. He states that Dr. Schofield placed him on Xanax and this medication along with marijuana are the only things that keep him calm. He then later relented that if he is on medications, he does not need to use Xanax or marijuana when he is stable. During the last admission, the patient requested to be discharged because he had a volunteer opportunity working at a [employer]. It is questionable at this time whether this patient is malingering." Hospital course: Upon admission to the unit patient was initially depressed and suicidal. Patient was however directable and agreeable to commence treatment and signed adult voluntary form. Patient got along well with other patients on the unit and followed unit protocol. Patient was compliant with the medications and denied any side effects throughout hospital course. Patient was started on Zoloft 50 mg daily for depression and anxiety however this dose needs to be decreased down to 25 mg as patient was complaining of an upset stomach. Patient was also restarted back on Remeron 15 mg daily at bedtime for mood/insomnia/appetite. Patient spoke of his stressors and engaged in therapy both group and individual. Patient was also seen by medical team for history and physical exam. Throughout the course of the hospitalization patient gradually improved with regards to mood, anxiety, sleep and returned back to his baseline level of functioning. On the day of discharge patient denied any suicidal or homicidal ideations intent or plan denied any auditory or visual hallucinations. Patient endorsed wanting to live for his future and housing. The patient denied any access to guns or weapons. Patient denied any paranoia and did not endorse any delusions. Patient does have a significant history of substance abuse and was counseled on abstaining from all substances including alcohol and marijuana. Patient was offered however declined inpatient substance-abuse rehab. Patient elected to do outpatient substance use treatment program through [facility]. Patient was also counseled on the medications and need for regular compliance and was encouraged to follow-up with their outpatient appointment for mental health and also for primary care. Mental status exam: General Appearance: Patient appears to be thin, stated age is alert, pleasant, and cooperative. Patient is in no acute distress and has improved hygiene and grooming Behavior: Patient is calmly seated without any agitated behavior. Speech: Patient's speech is fluent and nonpressured. Mood/Affect: Patient reports their mood is "good", affect is congruent Suicidality/Homicidality: Patient denies having any suicidal or homicidal ideation intent or plan. Perceptions: Patient denies any auditory or visual hallucinations. Though content/process: There is no evidence of any delusional thought content and thought process is linear and goal-directed. Memory and concentration: AOX3, grossly intact for the purposes of this session. Can spell "WORLD" backwards correctly. Judgment and insight: chronically poor, however has improved with guarded prognosis Impression: Major depressive disorder, without psychotic features Nicotine dependence Cannabis use disorder mild Amphetamine abuse Rule out malingering Plan: -Continue with discharge today as patient has improved and stabilized psychiatrically and is not currently an imminent threat to himself and/or others. Patient will remain at chronically elevated risk for harm to self and/or others due to his polysubstance abuse. -Continue medications: Continue with Zoloft 25 mg daily for mood/anxiety, Remeron 15 mg daily at bedtime for depression/insomnia/appetite. -Patient was counseled on the need for medication compliance and appropriate follow-up at mental health and also primary care for medical issues. Patient verbalized understanding and agreed. -Social work to help arrange for patient's discharge today. Social work also to arrange for patients follow up appointments with [facility] for psychiatric care along with follow up with primary care provider. -Patient counseled on abstaining from recreational drugs and marijuana and alcohol. Was informed/educated on the adverse effects on their physical and mental health. Patient verbally agreed and understood. Patient was offered substance abuse treatment however declined at this time. -Patient was instructed to return to the hospital or seek immediate medical care if their psychiatric or medical symptoms do worsen or reoccur. Allergies Allergy/AdvReac Type Severity Reaction Status Date / Time horseradish Allergy Anaphylaxis Verified 08/05/21 00:32 venom-wasp Allergy Anaphylaxis Verified 08/05/21 00:32 Laboratory Results Urine Opiates Screen Not Detected (NotDetected) 08/05/21 03:12 Ur Oxycodone Screen Not Detected (NotDetected) 08/05/21 03:12 Urine Methadone Screen Not Detected (NotDetected) 08/05/21 03:12 Ur Propoxyphene Screen Not Detected (NotDetected) 08/05/21 03:12 Ur Barbiturates Screen Not Detected (NotDetected) 08/05/21 03:12 U Tricyclic Antidepress Not Detected (NotDetected) 08/05/21 03:12 Ur Phencyclidine Scrn Not Detected (NotDetected) 08/05/21 03:12 Ur Amphetamines Screen Detected (NotDetected) H 08/05/21 03:12 U Methamphetamines Scrn Detected (NotDetected) H 08/05/21 03:12 U Benzodiazepines Scrn Not Detected (NotDetected) 08/05/21 03:12 Urine Cocaine Screen Not Detected (NotDetected) 08/05/21 03:12 U Marijuana (THC) Screen Detected (NotDetected) H 08/05/21 03:12 Coronavirus (PCR) Not Detected (Not Detectd) 08/05/21 03:12 Vital Signs Temp 97.5 F L 08/07/21 06:37 Pulse 70 08/07/21 06:37 Resp 18 08/07/21 06:37 BP 107/62 08/07/21 06:37 Pulse Ox 90 L 08/06/21 06:08 Patient Condition at Discharge: Stable Plan - Discharge Summary Discharge Rx Participant: No New Discharge Prescriptions: New Mirtazapine [Remeron] 15 mg PO HS 30 Days tab Nicotine 21Mg/24Hr Patch [Habitrol] 1 patch TRANSDERM DAILY 14 Days patch Sertraline [Zoloft] 25 mg PO DAILY 30 Days tab Continue Albuterol Inhaler [Ventolin Hfa Inhaler] 2 puff INHALATION RT-Q6H PRN PRN Reason: Shortness Of Breath Ergocalciferol [Vitamin D2 (1250 Mcg = 42508 Iu)] 1,250 mcg PO Q28D Ipratropium [place] [Atrovent Hfa] 1 - 2 puff INHALATION RT-QID PRN PRN Reason: Shortness Of Breath Acetaminophen-Codeine 300-30mg [Tylenol w/codeine #3] 1 tab PO TID PRN PRN Reason: Pain Discharge Medication List Albuterol Inhaler [Ventolin Hfa Inhaler] 2 puff INHALATION RT-Q6H PRN 05/12/20 [History] Acetaminophen-Codeine 300-30mg [Tylenol w/codeine #3] 1 tab PO TID PRN 08/02/21 [History] Ergocalciferol [Vitamin D2 (1250 Mcg = 39874 Iu)] 1,250 mcg PO Q28D 08/02/21 [History] Ipratropium [place] [Atrovent Hfa] 1 - 2 puff INHALATION RT-QID PRN 08/02/21 [History] Mirtazapine [Remeron] 15 mg PO HS 30 Days tab 08/07/21 [Rx] Nicotine 21Mg/24Hr Patch [Habitrol] 1 patch TRANSDERM DAILY 14 Days patch 08/07/21 [Rx] Sertraline [Zoloft] 25 mg PO DAILY 30 Days tab 08/07/21 [Rx] Follow up Appointment(s)/Referral(s): [facility] [Outside] - 08/11/21 10:00 am (08/11/2021 at 10 am with Rebecca.) Flash Schofield MD [Primary Care Provider] - 1 Week Discharge Disposition: OTHER INSTITUTION NOT DEFINED
[2021-08-07] MEDS ORDERED: SERTRALINE 25 MG TAB PO SCH (10:15)
--- NOTE | 2021-08-10 19:05 | CONS ---
CONSULTATION CHIEF COMPLAINT: Major depression. HISTORY OF PRESENT ILLNESS: This is another recent psychiatric admission for this 51-year-old white male [place] [address] He still smokes heavily and he is very poorly nourished. He was in the hospital recently for depression. He stated he became more depressed again and he came back in. I am not convinced that some of this is not the for the sake of care home. REVIEW OF SYSTEMS: He denies any headaches, neurologic problems, chest pain, abdominal pain, nausea, vomiting, diarrhea, urinary complaints, etc. Past medical history, family history and personal and social histories are all otherwise unremarkable, unchanged or noncontributory. PHYSICAL EXAMINATION: Vital signs are normal. He is very asthenic. Head, ears, eyes, nose and mouth were normal. Neck veins not distended. Chest is clear to auscultation. Cardiac exam demonstrates sinus rhythm. Abdomen: Soft, flat and nontender. Extremities are normal. Neurologically he is intact. He is admitted to the hospital with diagnoses of: 1. Depression. 2. Chronic obstructive pulmonary disease. 3. Malnutrition. RECOMMENDATIONS: None at this time. MMODL / IJN: [id number] /
== END 2021-08-07 13:57 | disposition other institution (70) | DRG 885 ==
LOC: EC 00:25 → 3MHU 05:08
PROVIDERS: ADMIT Psychiatry & Neurology Psychiatry; ATTEND Psychiatry & Neurology Psychiatry
DX: F33.2 Major depressive disorder, recurrent severe without psychotic features (principal); F17.200 Nicotine dependence, unspecified, uncomplicated; Z20.822 Contact with and (suspected) exposure to COVID-19; F12.10 Cannabis abuse, uncomplicated; F31.9 Bipolar disorder, unspecified; F15.10 Other stimulant abuse, uncomplicated; G47.00 Insomnia, unspecified; F43.10 Post-traumatic stress disorder, unspecified; F25.9 Schizoaffective disorder, unspecified; I25.2 Old myocardial infarction; J44.9 Chronic obstructive pulmonary disease, unspecified; Z76.5 Malingerer [conscious simulation]; Z79.899 Other long term (current) drug therapy; Z86.73 Personal history of transient ischemic attack (TIA), and cerebral infarction without residual deficits; Z59.00 Homelessness unspecified
CPT/HCPCS: 80306; 82075; 87635

== ENCOUNTER 2021-08-09 01:04 | Emergency (ER) | payer OTHER ==
--- NOTE | 2021-08-09 05:56 | ED ---
ENT HPI - General Chief complaint: Dental/Oral Stated complaint: taste issues Time Seen by Provider: 08/09/21 01:13 Source: patient Mode of arrival: ambulatory - Related Data Home Medications Medication Instructions Recorded Confirmed Albuterol Inhaler [Ventolin Hfa 2 puff INHALATION RT-Q6H PRN 05/12/20 08/02/21 Inhaler] Acetaminophen-Codeine 300-30mg 1 tab PO TID PRN 08/02/21 08/02/21 [Tylenol w/codeine #3] Ergocalciferol [Vitamin D2 (1250 1,250 mcg PO Q28D 08/02/21 08/02/21 Mcg = 68732 Iu)] Ipratropium [place] [Atrovent Hfa] 1 - 2 puff INHALATION RT-QID PRN 08/02/21 08/02/21 Previous Rx's Medication Instructions Recorded Mirtazapine [Remeron] 15 mg PO HS 30 Days tab 08/07/21 Nicotine 21Mg/24Hr Patch [Habitrol] 1 patch TRANSDERM DAILY 14 Days 08/07/21 patch Sertraline [Zoloft] 25 mg PO DAILY 30 Days tab 08/07/21 Allergies Allergy/AdvReac Type Severity Reaction Status Date / Time horseradish Allergy Anaphylaxis Verified 08/09/21 01:10 venom-wasp Allergy Anaphylaxis Verified 08/09/21 01:10 Review of Systems ROS Statement: Those systems with pertinent positive or pertinent negative responses have been documented in the HPI. ROS Other: All systems not noted in ROS Statement are negative. 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 Past Anesthesia/Blood Transfusion Reactions: Unable to Obtain Additional Past Anesthesia/Blood Transfusion Reaction / Comment(s): Pt has never had general/spinal anesthesia Past Psychological History: Anxiety, Bipolar, Depression, PTSD, Schizoaffective Disorder, Schizophrenia Smoking Status: Current every day smoker Past Alcohol Use History: None Reported Past Drug Use History: Marijuana - Past Family History Mother Family Medical History: CVA/TIA, Diabetes Mellitus, Myocardial Infarction ([place]) Father Additional Family Medical History / Comment(s): Emphesema Course Vital Signs 08/09/21 01:06 Temperature 98 F Pulse Rate 65 Respiratory 17 Rate Blood Pressure 121/80 O2 Sat by Pulse 97 Oximetry Disposition Clinical Impression: Dysgeusia Disposition: HOME SELF-CARE Condition: Good Is patient prescribed a controlled substance at d/c from ED?: No Referrals: Flash Schofield MD [Primary Care Provider] - 1-2 days Mike Polk DO [Doctor of Osteopathic Medicine] - 1-2 days
[2021-08-09 06:39] VITALS: BP 147/84; PULSE 87; RESP 18; TEMP 98.7
== END 2021-08-09 06:39 | disposition home or self-care (01) ==
LOC: EC 01:04
DX: R43.2 Parageusia (principal); J44.9 Chronic obstructive pulmonary disease, unspecified; F31.9 Bipolar disorder, unspecified; F41.9 Anxiety disorder, unspecified; F25.9 Schizoaffective disorder, unspecified; F17.200 Nicotine dependence, unspecified, uncomplicated; F12.90 Cannabis use, unspecified, uncomplicated; Z86.73 Personal history of transient ischemic attack (TIA), and cerebral infarction without residual deficits; Z79.51 Long term (current) use of inhaled steroids
CPT/HCPCS: 99283

== ENCOUNTER 2021-09-27 17:03 | Inpatient (IN) | payer MEDICAID, OTHER ==
--- NOTE | 2021-09-27 17:22 | ED ---
General Adult HPI - General Chief complaint: Psychiatric Symptoms Stated complaint: mental health Time Seen by Provider: 09/27/21 17:12 Source: patient, RN notes reviewed, old records reviewed Mode of arrival: ambulatory Limitations: no limitations - History of Present Illness Initial comments: 51-year-old male presenting for homicidal ideation. Patient was kicked out of the house that he been staying at. He believes that if he was to return to the situation he would hurt the roommate. He denies suicidal ideation. He denies any physical complaints. He is requesting psychiatric evaluation. - Related Data Home Medications Medication Instructions Recorded Confirmed Ergocalciferol [Vitamin D2 (1250 1,250 mcg PO Q28D 08/02/21 09/27/21 Mcg = 16900 Iu)] Ipratropium [place] [Atrovent Hfa] 2 puff INHALATION RT-QID PRN 08/02/21 09/27/21 ALPRAZolam [Xanax] 1 mg PO BID 09/27/21 09/27/21 Albuterol Sulfate [Proair Hfa] 2 puff INHALATION RT-Q4H PRN 09/27/21 09/27/21 Allergies Allergy/AdvReac Type Severity Reaction Status Date / Time horseradish Allergy Anaphylaxis Verified 09/27/21 17:48 venom-wasp Allergy Anaphylaxis Verified 09/27/21 17:48 Review of Systems ROS Statement: Those systems with pertinent positive or pertinent negative responses have been documented in the HPI. ROS Other: All systems not noted in ROS Statement are negative. 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, cerebral aneurysm stable, migraines Last Myocardial Infarction Date:: History of Any Multi-Drug Resistant Organisms: None Reported Past Surgical History: Heart Catheterization Additional Past Surgical History / Comment(s): pt state no heart cath- previous health documentation shows he has had one. Past Anesthesia/Blood Transfusion Reactions: Unable to Obtain Additional Past Anesthesia/Blood Transfusion Reaction / Comment(s): Pt has never had general/spinal anesthesia Past Psychological History: Anxiety, Bipolar, Depression, PTSD, Schizoaffective Disorder, Schizophrenia Smoking Status: Current every day smoker Past Alcohol Use History: None Reported Past Drug Use History: Marijuana - Past Family History Mother Family Medical History: CVA/TIA, Diabetes Mellitus, Myocardial Infarction ([place]) Father Additional Family Medical History / Comment(s): Emphesema General Exam Limitations: no limitations General appearance: alert, in no apparent distress Head exam: Present: atraumatic, normocephalic Eye exam: Present: normal appearance, PERRL ENT exam: Present: normal exam Neck exam: Present: normal inspection Respiratory exam: Present: normal lung sounds bilaterally. Absent: respiratory distress, wheezes Cardiovascular Exam: Present: regular rate, normal rhythm GI/Abdominal exam: Present: soft. Absent: distended, tenderness, guarding Extremities exam: Present: normal inspection, normal capillary refill. Absent: pedal edema Neurological exam: Present: alert, oriented X3, CN II-XII intact, normal gait. Absent: motor sensory deficit Psychiatric exam: Present: depressed, homicidal ideation Skin exam: Present: warm, dry, intact. Absent: cyanosis, diaphoretic Course Vital Signs 09/27/21 17:07 Temperature 98.1 F Pulse Rate 69 Respiratory 16 Rate Blood Pressure 142/63 O2 Sat by Pulse 99 Oximetry - Reevaluation(s) Reevaluation #1: 09/27/21 17:21 Patient clear for EPS evaluation Medical Decision Making - Medical Decision Making 51-year-old male who was evaluated by EPS for homicidal ideation. He is felt to benefit from inpatient psychiatric evaluation and treatment. He will be admitted to this institution. He has signed himself in. Disposition Clinical Impression: Depression, Homicidal ideations Disposition: ADMITTED IP TO THIS [facility] Condition: Stable Is patient prescribed a controlled substance at d/c from ED?: No Referrals: Flash Schofield MD [Primary Care Provider] - 1-2 days Decision to Admit Reason: Admit from EC Decision Date: 09/27/21 Decision Time: 18:29
[2021-09-27 19:30] LABS: Amphetamine Screen,Urine Not Detected (NotDetected); Barbiturate Screen,Urine Not Detected (NotDetected); Benzodiazepines Screen,Urine Not Detected (NotDetected); Cocaine Screen,Urine Not Detected (NotDetected); Methadone Screen, Urine Not Detected (NotDetected); Opiate Screen,Urine Not Detected (NotDetected); Oxycodone Screen, Urine Not Detected (NotDetected); Phencyclidine Screen,Urine Not Detected (NotDetected); Tricyclic Antidepressant,Urine Not Detected (NotDetected); Urn Cannabinoid Scrn Detected (NotDetected)
[2021-09-27] MEDS ORDERED: MAGNESIUM HYDROXIDE 2,400 MG/10 ML CUP PO PRN (21:54)
[2021-09-27] MEDS ORDERED: ACETAMINOPHEN TAB 325 MG TAB PO PRN (21:54)
[2021-09-27] MEDS ORDERED: MAG HYDROX/AL HYDROX/SIMETH 30 ML CUP PO PRN (21:54)
[2021-09-27] MEDS ORDERED: LORazepam 2 MG/ML INJ IM PRN (21:56)
[2021-09-27] MEDS ORDERED: HALOPERIDOL LACTATE 5 MG/ML 1 ML VIAL IM PRN (21:57)
[2021-09-28 00:04] LABS: Appearance,Urine Clear (Clear); Bilirubin,Urine Negative (Negative); Blood,Urine Negative (Negative); Color,Urine Yellow; Glucose,Urine (UA) Negative (Negative); Ketones,Urine Negative (Negative); Leukocyte Esterase,Urine Negative (Negative); Nitrite,Urine Negative (Negative); Protein,Urine Negative (Negative)
[2021-09-28 08:34] LABS: Basophils # (A) 0.1 k/uL (0-0.2); Basophils % (A) 1 %; Eosinophils # (A) 0.4 k/uL (0-0.7); Eosinophils % (A) 4 %; HCT 40.8 % (39.0-53.0); HGB 13.5 gm/dL (13.0-17.5); Lymphocytes # (A) 2.6 k/uL (1.0-4.8); Lymphocytes % (A) 29 %; MCH 30.4 pg (25.0-35.0); MCV 92.2 fL (80.0-100.0); Mean Platelet Volume 7.1; Monocytes # (A) 0.6 k/uL (0-1.0); Monocytes % (A) 6 %; Neutrophils # (A) 5.4 k/uL (1.3-7.7); Neutrophils % (A) 59 %; Platelet Count 304 k/uL (150-450); RBC 4.43 m/uL (4.30-5.90); RDW 13.7 % (11.5-15.5); WBC 9.2 k/uL (3.8-10.6)
[2021-09-28 08:51] LABS: ALT 13 U/L (4-49); AST 24 U/L (17-59); African American GFR (CKD) >90 (>60 ml/min/1.73 sqM); Albumin 3.9 g/dL (3.5-5.0); Alkaline Phosphatase 85 U/L (38-126); Anion Gap 8 mmol/L; Blood Urea Nitrogen 14 mg/dL (9-20); Calcium 9.5 mg/dL (8.4-10.2); Carbon Dioxide 26 mmol/L (22-30); Chloride 105 mmol/L (98-107); Glucose 86 mg/dL (74-99); Non-African American GFR(CKD) >90 (>60 ml/min/1.73 sqM); Potassium 4.6 mmol/L (3.5-5.1); Sodium 139 mmol/L (137-145); Total Bilirubin 0.2 mg/dL (0.2-1.3); Total Protein 6.6 g/dL (6.3-8.2)
[2021-09-28] MEDS: NICOTINE 14MG/24HR PATCH TRANSDERM SCH ×2 (09:32→10:44)
[2021-09-28] MEDS ORDERED: ALBUTEROL INHALER 60 PUFF/8 GM INHALER (MHU) INHALATION PRN (10:24)
[2021-09-28] MEDS ORDERED: TIOTROPIUM 2.5 MCG INHALER (MHU) INHALATION PRN (10:24)
[2021-09-28] MEDS ORDERED: ERGOCALCIFEROL 1,250 MCG (50,000 IU) CAPSULE PO SCH (10:30)
[2021-09-28] MEDS: ESCITALOPRAM 5 MG TAB PO SCH (10:42)
--- NOTE | 2021-09-28 10:43 | P.HP ---
Psychiatric H&P - . H&P Date: 09/28/21 History & Physical: Allergies Allergy/AdvReac Type Severity Reaction Status Date / Time horseradish Allergy Anaphylaxis Verified 09/27/21 17:48 venom-wasp Allergy Anaphylaxis Verified 09/27/21 17:48 Vital Signs Temp 98 F 09/28/21 06:43 Pulse 56 L 09/28/21 06:43 Resp 18 09/28/21 06:43 BP 100/56 09/28/21 06:43 Pulse Ox 96 09/27/21 22:47 Intake & Output 09/27/21 09/28/21 09/28/21 18:59 06:59 18:59 Weight 58.06 kg 54.885 kg Laboratory Last Values WBC 9.2 k/uL (3.8-10.6) 09/28/21 07:36 RBC 4.43 m/uL (4.30-5.90) 09/28/21 07:36 Hgb 13.5 gm/dL (13.0-17.5) 09/28/21 07:36 Hct 40.8 % (39.0-53.0) 09/28/21 07:36 MCV 92.2 fL (80.0-100.0) 09/28/21 07:36 MCH 30.4 pg (25.0-35.0) 09/28/21 07:36 MCHC 33.0 g/dL (31.0-37.0) 09/28/21 07:36 RDW 13.7 % (11.5-15.5) 09/28/21 07:36 Plt Count 304 k/uL (150-450) 09/28/21 07:36 MPV 7.1 09/28/21 07:36 Neutrophils % 59 % 09/28/21 07:36 Lymphocytes % 29 % 09/28/21 07:36 Monocytes % 6 % 09/28/21 07:36 Eosinophils % 4 % 09/28/21 07:36 Basophils % 1 % 09/28/21 07:36 Neutrophils # 5.4 k/uL (1.3-7.7) 09/28/21 07:36 Lymphocytes # 2.6 k/uL (1.0-4.8) 09/28/21 07:36 Monocytes # 0.6 k/uL (0-1.0) 09/28/21 07:36 Eosinophils # 0.4 k/uL (0-0.7) 09/28/21 07:36 Basophils # 0.1 k/uL (0-0.2) 09/28/21 07:36 Sodium 139 mmol/L (137-145) 09/28/21 07:36 Potassium 4.6 mmol/L (3.5-5.1) 09/28/21 07:36 Chloride 105 mmol/L (98-107) 09/28/21 07:36 Carbon Dioxide 26 mmol/L (22-30) 09/28/21 07:36 Anion Gap 8 mmol/L 09/28/21 07:36 BUN 14 mg/dL (9-20) 09/28/21 07:36 Creatinine 0.95 mg/dL (0.66-1.25) 09/28/21 07:36 Est GFR (CKD-EPI)AfAm >90 (>60 ml/min/1.73 sqM) 09/28/21 07:36 Est GFR (CKD-EPI)NonAf >90 (>60 ml/min/1.73 sqM) 09/28/21 07:36 Glucose 86 mg/dL (74-99) 09/28/21 07:36 Calcium 9.5 mg/dL (8.4-10.2) 09/28/21 07:36 Total Bilirubin 0.2 mg/dL (0.2-1.3) 09/28/21 07:36 AST 24 U/L (17-59) 09/28/21 07:36 ALT 13 U/L (4-49) 09/28/21 07:36 Alkaline Phosphatase 85 U/L (38-126) 09/28/21 07:36 Total Protein 6.6 g/dL (6.3-8.2) 09/28/21 07:36 Albumin 3.9 g/dL (3.5-5.0) 09/28/21 07:36 TSH 1.950 mIU/L (0.465-4.680) 09/28/21 07:36 Urine Color Yellow 09/27/21 18:58 Urine Appearance Clear (Clear) 09/27/21 18:58 Urine pH 6.0 (5.0-8.0) 09/27/21 18:58 Ur Specific [place] 1.020 (1.001-1.035) 09/27/21 18:58 Urine Protein Negative (Negative) 09/27/21 18:58 Urine Glucose (UA) Negative (Negative) 09/27/21 18:58 Urine Ketones Negative (Negative) 09/27/21 18:58 Urine Blood Negative (Negative) 09/27/21 18:58 Urine Nitrite Negative (Negative) 09/27/21 18:58 Urine Bilirubin Negative (Negative) 09/27/21 18:58 Urine Urobilinogen 2.0 mg/dL (<2.0) 09/27/21 18:58 Ur Leukocyte Esterase Negative (Negative) 09/27/21 18:58 Urine Opiates Screen Not Detected (NotDetected) 09/27/21 18:58 Ur Oxycodone Screen Not Detected (NotDetected) 09/27/21 18:58 Urine Methadone Screen Not Detected (NotDetected) 09/27/21 18:58 Ur Propoxyphene Screen Not Detected (NotDetected) 09/27/21 18:58 Ur Barbiturates Screen Not Detected (NotDetected) 09/27/21 18:58 U Tricyclic Antidepress Not Detected (NotDetected) 09/27/21 18:58 Ur Phencyclidine Scrn Not Detected (NotDetected) 09/27/21 18:58 Ur Amphetamines Screen Not Detected (NotDetected) 09/27/21 18:58 U Methamphetamines Scrn Not Detected (NotDetected) 09/27/21 18:58 U Benzodiazepines Scrn Not Detected (NotDetected) 09/27/21 18:58 Urine Cocaine Screen Not Detected (NotDetected) 09/27/21 18:58 U Marijuana (THC) Screen Detected (NotDetected) H 09/27/21 18:58 Coronavirus (PCR) Not Detected (Not Detectd) 09/27/21 18:57 09/28/21 10:32 IDENTIFYING DATA: Patient is a single, unemployed, 51-year-old male with significant history of PTSD, depression, anxiety who was admitted for suicidal ideation the context of homelessness. HPI: The patient was admitted to the psychiatric unit yesterday night after coming into the ED complaining of homicidal ideations towards his roommate and also ongoing depression. Patient has multiple psychiatric admissions and is following up with [facility]. He has a history of benzodiazepine abuse. He was seen today in his room and agreeable to speak to writer technical publications. He appeared to be disheveled in appearance and very thin. He claims that he was feeling "suicidal and homicidal towards my roommate". He states that they got in a big argument and he got kicked out of the house. He states that "if I go back there one of us will end up in the hospital and the other one in custodial". He claims that he is currently homeless again and does not have a place to go. He claims that he had to go to his uncle's recently who . He claims that he called the crisis line and they told him to come the hospital for evaluation. He states that he lost all of his medications recently and has been off of his Xanax for over a week now. He claims that Dr. Schofield is no longer perscribing him his xanax. He states that he is feeling anxious and was fairly preoccupied with obtaining Xanax and Ativan. He claims that he is feeling depressed however is no longer suicidal at this time. He states that he does have mild homicidal ideations towards his roommate however does not endorse any kind of plan. He states that his sleep and appetite are fair. He was agreeable to be restarted back on Lexapro. He states that he smokes marijuana daily. PAST PSYCHIATRIC HISTORY: The patient was most recently admitted to the psychiatric unit in july. He has previous diagnoses of depression, anxiety and substance abuse. The patient reports that he has had multiple inpatient psychiatric hospitalizations. The patient has been constantly presenting to this unit with the same complaint of suicidal ideation all in the context of his homelessness. The patient has not been in adherent with his prescribed psychotropic medications. He is currently not following up with his outpatient appointments. He does report one prior attempt at suicide when he was 15 years old. 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 Past Anesthesia/Blood Transfusion Reactions: Unable to Obtain Additional Past Anesthesia/Blood Transfusion Reaction / Comment(s): Pt has never had general/spinal anesthesia Past Psychological History: Anxiety, Bipolar, Depression, PTSD, Schizoaffective Disorder, Schizophrenia Smoking Status: Current every day smoker Past Alcohol Use History: Occasional Past Drug Use History: Marijuana ALLERGIES: Horse radish, wasp venom CHEMICAL DEPENDENCY HISTORY: Patient reports he smokes one and half packs per day of tobacco. He denies any significant alcohol use. He reports marijuana use. FAMILY PSYCHIATRIC/SUBSTANCE USE HISTORY: The patient denies any significant family psychiatric history or history of substance abuse. SOCIAL HISTORY: Patient was born and raised in [place], [place]. He is single, never , but has a 6-year-old son who is living in [place]. The patient is currently homeless and reports no source of income. He has been denied disability. The patient maintains that he cannot work due to his health issues, in particular his asthma. The patient dropped out of school in the 10th grade. He reports no service, evangelical affiliation, or current legal problems. The patient did spend 4 and half years in assisted for criminal sexual conduct. He was released in 2002. He is a registered sex offender. He reports that it has been difficulty finding work due to his sex offender status. MENTAL STATUS EXAM: General Appearance: Patient appears to be stated age is alert, directable, and attempts to cooperate. Patient appears to have poor hygiene and grooming. appears to be thin. The patient appears to be emaciated with a thin build. Behavior: Patient is seated without any agitated behavior. Eye contact is appropriate. Psychomotor activity is normal. Speech: Patient's speech is fluent and nonpressured. Mood/Affect: Patient reports their mood is depressed and anxious, affect is congruent Suicidality/Homicidality: Patient denies having any homicidal ideation intent or plan. Patient admits to suicidal ideation. Perceptions: Patient denies any visual hallucinations and denies any auditory hallucinations Though content/process: There is no evidence of any delusional thought content and thought process is linear and goal-directed. focued on controlled medications. Memory and concentration: AOX3, grossly intact for the purposes of this session. Can spell "WORLD" backwards Judgment and insight: Very poor STRENGTHS/WEAKNESSES: Strength is that the patient is resourceful. Weakness that the patient is homeless, unemployed, and nonadherent with treatment. INTELLECT: average IMPRESSIONS: Major depressive disorder, recurrent, severe Nicotine dependence Cannabis use disorder benzodiazipine abuse Rule out malingering PLAN: -Patient is admitted under voluntary status to MHU for stabilization of psychiatric symptoms and safety. Patient signed adult voluntary form and medication consent and is placed in patient's chart. -Medications : Will start patient on lexapro 5 mg daily for anxiety/mood. Patient will not be started on any controlled medications due to strong suspicion of diverting and abuse. -Haldol PRN for agitation/aggression -Patient was counselled on substance abuse but refuses to acknowledge that cannabis may be contributing to ongoing mental health issues -Patient was informed of the risks, benefits and side effects of the medication and patient verbally consented to taking the medications. -Internal Medicine consult to perform medical evaluation and physical. -NRT - nicotine patch -SW on board for discharge planning. Encourage patient to participate in groups to work on coping skills. likely discharge in 1-2 days. 09/28/21 10:37
[2021-09-28 15:02] LABS: Chol/HDL Ratio 4.97 Ratio; LDL Cholesterol,Calculated 189.3 mg/dL (0.0-131.0)
--- NOTE | 2021-09-28 17:21 | CONS ---
CONSULTATION CHIEF COMPLAINT: Depression. HISTORY OF PRESENT ILLNESS: This is another admission for this 51-year-old homeless man. He has been in and out of my office and the hospital numerous times over the last 6 months. He is generally homeless. He also has a tendency to abuse narcotics and tranquilizers. He has been in and out of the psych unit stating that he has depression. This was the reason he was brought back in again. REVIEW OF SYSTEMS: He denies any headaches, diplopia, chest pain, cough, hemoptysis, hypertension, murmurs, rheumatic fever, abdominal pain, nausea, vomiting, melena, hematochezia, jaundice, renal failure, hematuria, dysuria, etc. Past medical history, family history, and personal and social histories are all otherwise unremarkable or unchanged. He does smoke heavily. His medications that he is supposed to be taking are Remeron, Seroquel and ProAir as well as paroxetine and Atrovent. He is also on vitamin D3. PHYSICAL EXAMINATION: Blood pressure 110/80, pulse 93, respirations of 41. He is afebrile. In general he appeared to be slender, poorly nourished and in no acute distress. Skin was warm and dry. Lymph nodes were not enlarged. Head, ears, eyes, nose, mouth and throat were normal. Neck veins were not distended. Thyroid is not enlarged. Chest is clear. Cardiac exam is normal. The abdomen is soft and nontender. Extremities are normal. Neurologically he is intact. He is admitted to the hospital with diagnoses: 1. Depression. 2. History of analgesic abuse. 3. Chronic obstructive pulmonary disease. RECOMMENDATIONS: None at this time. MMODL / IJN: [id number] /
[2021-09-29] MEDS: NICOTINE 14MG/24HR PATCH TRANSDERM SCH (08:05)
[2021-09-29] MEDS: ESCITALOPRAM 5 MG TAB PO SCH (08:05)
[2021-09-29 11:50] VITALS: BMI 16.4
[2021-09-29] MEDS ORDERED: busPIRone HCl 5 MG TAB PO PRN (12:17)
--- NOTE | 2021-09-29 12:22 | P.PN ---
Progress Note - Text Progress Note Date: 09/29/21 Interval history: Patient was seen in his room and agreeable to speak to communications writer today in the off ice. He states that he is feeling a bit better today however continues to speak about his rage and anger towards his roomate. He states that he feels less like a "zombie" on the Lexapro and wants to remain on the same medication and dose. He continues to ask about Ativan for his anxiety for his anxiety. He states that he is okay starting the BuSpar today for anxiety. He claims that he was able to sleep a bit better last night however was agreeable to try melatonin. He continues to have anger towards other people and states that he may hurt his roommate however does not want to go back to the house and would rather go somewhere else. He states that he is not having suicidal thoughts today and denies any auditory or visual hallucinations. He claims that he has a fair appetite. General Appearance: Patient appears to be stated age is alert, directable, and attempts to cooperate. Patient appears to have improving hygiene and grooming. appears to be thin. Behavior: Patient is seated without any agitated behavior. Eye contact is appropriate. Psychomotor activity is normal. Speech: Patient's speech is fluent and nonpressured. Mood/Affect: Patient reports their mood is improving mildly, affect is congruent and constricted Suicidality/Homicidality: Patient denies having any homicidal ideation intent or plan. Patient denies any suicidal ideation. Perceptions: Patient denies any visual hallucinations and denies any auditory hallucinations Though content/process: There is no evidence of any delusional thought content and thought process is linear and goal-directed. focused on controlled medications. Memory and concentration: AOX3, grossly intact for the purposes of this session. Judgment and insight: Very poor, improving mildly IMPRESSIONS: Major depressive disorder, recurrent, severe Nicotine dependence Cannabis use disorder benzodiazipine abuse Rule out malingering PLAN: -Patient is admitted under voluntary status to MHU for stabilization of psychiatric symptoms and safety. Patient signed adult voluntary form and medication consent and is placed in patient's chart. -Medications : continue with lexapro 5 mg daily for anxiety/mood. added melatnin 3 mg qhs for sleep. Patient will not be started on any controlled medications due to strong suspicion of diverting and abuse. -Haldol PRN for agitation/aggression -NRT - nicotine patch -SW on board for discharge planning. Encourage patient to participate in groups to work on coping skills. likely discharge in 1-2 days. nursing home vs. staying with a friend or family.
[2021-09-29] MEDS: MELATONIN 3 MG TABLET PO SCH (21:03)
[2021-09-30 07:18] VITALS: RESP 14
[2021-09-30] MEDS: ESCITALOPRAM 5 MG TAB PO SCH (07:56)
[2021-09-30] MEDS: NICOTINE 14MG/24HR PATCH TRANSDERM SCH (07:56)
--- NOTE | 2021-09-30 10:21 | P.PN ---
Progress Note - Text Progress Note Date: 09/30/21 Interval history: Patient was seen in his room and agreeable to speak to television writer today in the off ice. He states that he is feeling a bit better today however claims that he was "irritated" this morning with another patient. He states that she was hogging the coffee this morning and didnt leave him any. He states that his mood is gradually improving along with his anxiety. Continues to speak about his rage and anger towards his roomate however is less preoccupied with this today. He claims that he was able to sleep a bit better last night with the melatonin added. He continues to state that he does not know where he wants to go and beleives that he is not allowed back at the correction or his friends. He states that he is not having suicidal thoughts today and denies any auditory or visual hallucinations. He claims that he has a fair appetite. General Appearance: Patient appears to be stated age is alert, directable, and attempts to cooperate. Patient appears to have improving hygiene and grooming. appears to be thin. Behavior: Patient is seated without any agitated behavior. Eye contact is appropriate. Psychomotor activity is normal. Speech: Patient's speech is fluent and nonpressured. Mood/Affect: Patient reports their mood is improving mildly, affect is congruent and constricted Suicidality/Homicidality: Patient denies having any homicidal ideation intent or plan. Patient denies any suicidal ideation. Perceptions: Patient denies any visual hallucinations and denies any auditory hallucinations Though content/process: There is no evidence of any delusional thought content and thought process is linear and goal-directed. Memory and concentration: AOX3, grossly intact for the purposes of this session. Judgment and insight: chronically poor, improving mildly IMPRESSIONS: Major depressive disorder, recurrent, severe Nicotine dependence Cannabis use disorder benzodiazipine abuse Rule out malingering PLAN: -Patient is admitted under voluntary status to MHU for stabilization of psychiatric symptoms and safety. Patient signed adult voluntary form and medication consent and is placed in patient's chart. -Medications : continue with lexapro 5 mg daily for anxiety/mood. melatnin 3 mg qhs for sleep. Patient will not be started on any controlled medications due to strong suspicion of diverting and abuse. -Haldol PRN for agitation/aggression -NRT - nicotine patch -SW on board for discharge planning. Encourage patient to participate in groups to work on coping skills. likely discharge tomorrow correction vs. staying with a friend or family.
[2021-09-30] MEDS: MELATONIN 3 MG TABLET PO SCH (20:31)
[2021-10-01 06:56] VITALS: BP 107/65; PULSE 57; TEMP 97.7
[2021-10-01] MEDS: NICOTINE 14MG/24HR PATCH TRANSDERM SCH (08:02)
[2021-10-01] MEDS: ESCITALOPRAM 5 MG TAB PO SCH (08:02)
[2021-10-01] MEDS ORDERED: busPIRone HCl 10 MG TAB PO PRN (09:53)
--- NOTE | 2021-10-01 10:21 | P.DS ---
Providers Date of admission: 09/27/21 21:51 Expected date of discharge: 10/01/21 Attending physician: Ga Garcia MD Consults: 09/27/21 21:54 Consult Physician Routine Consulting Provider: Flash Schofield Consult Reason/Comments: MEDICAL MANAGEMENT Do you want consulting provider notified?: Yes Primary care physician: Flash Schofield - Discharge Diagnosis(es) (1) Major depressive disorder, recurrent severe without psychotic features Current Visit: Yes Status: Acute Priority: High (2) Nicotine dependence Current Visit: Yes Status: Acute Priority: Low (3) Cannabis use disorder, mild, abuse Current Visit: Yes Status: Acute Priority: Medium (4) Benzodiazepine abuse Current Visit: Yes Status: Acute Priority: Medium (5) Homelessness Current Visit: Yes Status: Acute Priority: Low Hospital Course: Admission HPI: Admission note was completed by sba underwriter "Patient is a single, unemployed, 51-year-old male with significant history of PTSD, depression, anxiety who was admitted for suicidal ideation the context of homelessness. The patient was admitted to the psychiatric unit yesterday night after coming into the ED complaining of homicidal ideations towards his roommate and also ongoing depression. Patient has multiple psychiatric admissions and is following up with [facility]. He has a history of benzodiazepine abuse. He was seen today in his room and agreeable to speak to sba underwriter. He appeared to be disheveled in appearance and very thin. He claims that he was feeling "suicidal and homicidal towards my roommate". He states that they got in a big argument and he got kicked out of the house. He states that "if I go back there one of us will end up in the hospital and the other one in [facility]". He claims that he is currently homeless again and does not have a place to go. He claims that he had to go to his uncle's recently who . He claims that he called the crisis line and they told him to come the hospital for evaluation. He states that he lost all of his medications recently and has been off of his Xanax for over a week now. He claims that Dr. Schofield is no longer perscribing him his xanax. He states that he is feeling anxious and was fairly preoccupied with obtaining Xanax and Ativan. He claims that he is feeling depressed however is no longer suicidal at this time. He states that he does have mild homicidal ideations towards his roommate however does not endorse any kind of plan. He states that his sleep and appetite are fair. He was agreeable to be restarted back on Lexapro. He states that he smokes marijuana daily." Hospital course: Upon admission to the unit patient was directable and agreeable to commence treatment and signed adult voluntary form . Patient got along well with other patients on the unit and followed unit protocol. Patient was compliant with the medications and denied any side effects throughout hospital course. Patient was started on Lexapro 5 mg daily for mood/anxiety. Patient was also started on melatonin for sleep and titrated up to a dose of 6 mg qhs for sleep. He was also started on buspar 10 mg bid prn for anxiety. Patient spoke of his stressors and engaged in therapy both group and individual. Patient was also seen by medical team for history and physical exam. Throughout the course of the hospitalization patient gradually improved with regards to mood, anxiety, sleep and returned back to their baseline level of functioning. Patient has chronically poor insight and judgment. On the day of discharge patient denied any suicidal or homicidal ideations intent or plan denied any auditory or visual hallucinations. Patient endorsed wanting to live for his future and to find a place to live. The patient denied any access to guns or weapons. Patient denied any paranoia and did not endorse any delusions. Patient does have a significant history of substance abuse and was counseled on abstaining from all substances including alcohol and marijuana. Patient was offered however declined inpatient substance-abuse rehab. Patient was also counseled on the medications and need for regular compliance and was encouraged to follow-up with their outpatient appointment for mental health and also for primary care. Patient opted to go to a nursing home today upon discharge and will not be returning back to his previous residence Mental status exam: General Appearance: Patient appears to be thin/frail, has a morales, older than stated age is alert, pleasant, and cooperative. Patient is in no acute distress and has improved hygiene and grooming Behavior: Patient is calmly seated without any agitated behavior. Speech: Patient's speech is fluent and nonpressured. Mood/Affect: Patient reports their mood is "good", affect is congruent Suicidality/Homicidality: Patient denies having any suicidal or homicidal ideation intent or plan. Perceptions: Patient denies any auditory or visual hallucinations. Though content/process: There is no evidence of any delusional thought content and thought process is linear and goal-directed. Memory and concentration: AOX3, grossly intact for the purposes of this session. Can spell "WORLD" backwards correctly. Judgment and insight: chronically poor, however has improved with guarded prognosis Impression: Major depressive disorder, recurrent, severe without psychotic features nicotine dependence cannabis use disorder, mild benzodiazipine abuse rule out Malingering Plan: -Continue with discharge today as patient has improved and stabilized psychiatrically and is not currently an imminent threat to himself and/or others. Patient will remain at chronically elevated risk for harm to self and/or others due to his substance abuse and chronically poor insight and judgment. -Continue medications: Lexapro 5 mg daily for mood/anxiety, BuSpar 10 mg twice a day when necessary for anxiety, melatonin 6 mg daily at bedtime for insomnia. -Patient was counseled on the need for medication compliance and appropriate follow-up at mental health and also primary care for medical issues. Patient verbalized understanding and agreed. -Social work to arrange for and conduct family meeting to ensure safety upon discharge and answer any questions/concerns. Social work also to arrange for patients follow up appointments with [facility] for psychiatric care along with follow up with primary care provider. -Patient counseled on abstaining from recreational drugs and marijuana and alcohol. Was informed/educated on the adverse effects on their physical and mental health. Patient verbally agreed and understood. Patient was offered substance abuse treatment however declined at this time. -Patient was instructed to return to the hospital or seek immediate medical care if their psychiatric or medical symptoms do worsen or reoccur. Allergies Allergy/AdvReac Type Severity Reaction Status Date / Time horseradish Allergy Anaphylaxis Verified 09/27/21 17:48 venom-wasp Allergy Anaphylaxis Verified 09/27/21 17:48 Laboratory Results WBC 9.2 k/uL (3.8-10.6) 09/28/21 07:36 RBC 4.43 m/uL (4.30-5.90) 09/28/21 07:36 Hgb 13.5 gm/dL (13.0-17.5) 09/28/21 07:36 Hct 40.8 % (39.0-53.0) 09/28/21 07:36 MCV 92.2 fL (80.0-100.0) 09/28/21 07:36 MCH 30.4 pg (25.0-35.0) 09/28/21 07:36 MCHC 33.0 g/dL (31.0-37.0) 09/28/21 07:36 RDW 13.7 % (11.5-15.5) 09/28/21 07:36 Plt Count 304 k/uL (150-450) 09/28/21 07:36 MPV 7.1 09/28/21 07:36 Neutrophils % 59 % 09/28/21 07:36 Lymphocytes % 29 % 09/28/21 07:36 Monocytes % 6 % 09/28/21 07:36 Eosinophils % 4 % 09/28/21 07:36 Basophils % 1 % 09/28/21 07:36 Neutrophils # 5.4 k/uL (1.3-7.7) 09/28/21 07:36 Lymphocytes # 2.6 k/uL (1.0-4.8) 09/28/21 07:36 Monocytes # 0.6 k/uL (0-1.0) 09/28/21 07:36 Eosinophils # 0.4 k/uL (0-0.7) 09/28/21 07:36 Basophils # 0.1 k/uL (0-0.2) 09/28/21 07:36 Sodium 139 mmol/L (137-145) 09/28/21 07:36 Potassium 4.6 mmol/L (3.5-5.1) 09/28/21 07:36 Chloride 105 mmol/L (98-107) 09/28/21 07:36 Carbon Dioxide 26 mmol/L (22-30) 09/28/21 07:36 Anion Gap 8 mmol/L 09/28/21 07:36 BUN 14 mg/dL (9-20) 09/28/21 07:36 Creatinine 0.95 mg/dL (0.66-1.25) 09/28/21 07:36 Est GFR (CKD-EPI)AfAm >90 (>60 ml/min/1.73 sqM) 09/28/21 07:36 Est GFR (CKD-EPI)NonAf >90 (>60 ml/min/1.73 sqM) 09/28/21 07:36 Glucose 86 mg/dL (74-99) 09/28/21 07:[address] Glu mg/dL 117 09/28/21 07:36 Hemoglobin A1c 5.7 % (4.0-6.0) 09/28/21 07:36 Calcium 9.5 mg/dL (8.4-10.2) 09/28/21 07:36 Total Bilirubin 0.2 mg/dL (0.2-1.3) 09/28/21 07:36 AST 24 U/L (17-59) 09/28/21 07:36 ALT 13 U/L (4-49) 09/28/21 07:36 Alkaline Phosphatase 85 U/L (38-126) 09/28/21 07:36 Total Protein 6.6 g/dL (6.3-8.2) 09/28/21 07:36 Albumin 3.9 g/dL (3.5-5.0) 09/28/21 07:36 Triglycerides 72.00 mg/dL (0.00-149.00) 09/28/21 07:36 Cholesterol 255.00 mg/dL (0.00-200.00) H 09/28/21 07:36 LDL Cholesterol, Calc 189.3 mg/dL (0.0-131.0) H 09/28/21 07:36 VLDL Cholesterol, Calc 14.40 mg/dL (5.00-40.00) 09/28/21 07:36 HDL Cholesterol 51.30 mg/dL (40.00-60.00) 09/28/21 07:36 Cholesterol/HDL Ratio 4.97 Ratio 09/28/21 07:36 TSH 1.950 mIU/L (0.465-4.680) 09/28/21 07:36 Urine Color Yellow 09/27/21 18:58 Urine Appearance Clear (Clear) 09/27/21 18:58 Urine pH 6.0 (5.0-8.0) 09/27/21 18:58 Ur Specific [place] 1.020 (1.001-1.035) 09/27/21 18:58 Urine Protein Negative (Negative) 09/27/21 18:58 Urine Glucose (UA) Negative (Negative) 09/27/21 18:58 Urine Ketones Negative (Negative) 09/27/21 18:58 Urine Blood Negative (Negative) 09/27/21 18:58 Urine Nitrite Negative (Negative) 09/27/21 18:58 Urine Bilirubin Negative (Negative) 09/27/21 18:58 Urine Urobilinogen 2.0 mg/dL (<2.0) 09/27/21 18:58 Ur Leukocyte Esterase Negative (Negative) 09/27/21 18:58 Urine Opiates Screen Not Detected (NotDetected) 09/27/21 18:58 Ur Oxycodone Screen Not Detected (NotDetected) 09/27/21 18:58 Urine Methadone Screen Not Detected (NotDetected) 09/27/21 18:58 Ur Propoxyphene Screen Not Detected (NotDetected) 09/27/21 18:58 Ur Barbiturates Screen Not Detected (NotDetected) 09/27/21 18:58 U Tricyclic Antidepress Not Detected (NotDetected) 09/27/21 18:58 Ur Phencyclidine Scrn Not Detected (NotDetected) 09/27/21 18:58 Ur Amphetamines Screen Not Detected (NotDetected) 09/27/21 18:58 U Methamphetamines Scrn Not Detected (NotDetected) 09/27/21 18:58 U Benzodiazepines Scrn Not Detected (NotDetected) 09/27/21 18:58 Urine Cocaine Screen Not Detected (NotDetected) 09/27/21 18:58 U Marijuana (THC) Screen Detected (NotDetected) H 09/27/21 18:58 Coronavirus (PCR) Not Detected (Not Detectd) 09/27/21 18:57 Vital Signs Temp 97.7 F 10/01/21 06:55 Pulse 57 L 10/01/21 06:55 Resp 14 10/01/21 06:55 BP 107/65 10/01/21 06:55 Pulse Ox 96 09/27/21 22:47 Patient Condition at Discharge: Stable Plan - Discharge Summary Discharge Rx Participant: No New Discharge Prescriptions: New busPIRone HCl [Buspar] 10 mg PO BID PRN 30 Days tab PRN Reason: Anxiety Nicotine 14Mg/24Hr Patch [Habitrol] 1 patch TRANSDERM DAILY 14 Days patch Escitalopram [Lexapro] 5 mg PO DAILY 30 Days tab Melatonin 6 mg PO HS 30 Days tablet Acetaminophen Tab [Tylenol] 650 mg PO Q4HR PRN tab PRN Reason: Pain/Discomfort Continue Albuterol Sulfate [Proair Hfa] 2 puff INHALATION RT-Q4H PRN PRN Reason: Shortness Of Breath Ergocalciferol [Vitamin D2 (1250 Mcg = 38911 Iu)] 1,250 mcg PO Q28D Ipratropium [place] [Atrovent Hfa] 2 puff INHALATION RT-QID PRN PRN Reason: Shortness Of Breath Discontinued ALPRAZolam [Xanax] 1 mg PO BID Discharge Medication List Ergocalciferol [Vitamin D2 (1250 Mcg = 39022 Iu)] 1,250 mcg PO Q28D 08/02/21 [History] Ipratropium [place] [Atrovent Hfa] 2 puff INHALATION RT-QID PRN 08/02/21 [History] Albuterol Sulfate [Proair Hfa] 2 puff INHALATION RT-Q4H PRN 09/27/21 [History] Acetaminophen Tab [Tylenol] 650 mg PO Q4HR PRN tab 10/01/21 [Rx] Escitalopram [Lexapro] 5 mg PO DAILY 30 Days tab 10/01/21 [Rx] Melatonin 6 mg PO HS 30 Days tablet 10/01/21 [Rx] Nicotine 14Mg/24Hr Patch [Habitrol] 1 patch TRANSDERM DAILY 14 Days patch 10/01/21 [Rx] busPIRone HCl [Buspar] 10 mg PO BID PRN 30 Days tab 10/01/21 [Rx] Follow up Appointment(s)/Referral(s): Flash Schofield MD [Primary Care Provider] - 1-2 days Patient Instructions/Handouts: Mood Disorders (DC), Cannabis Abuse (DC), Help Prevent Suicide (DC) Activity/Diet/Wound Care/Special Instructions: Activity and diet as tolerated. Avoid the use of street drugs and alcohol. Take all medications as prescribed. When you are in need of refills on your medications please contact your medical provider and/or outpatient psychiatrist to have this done. Please go to scheduled outpatient appointment for aftercare treatment. If symptoms return or become worse, call the crisis line at and/or go to the nearest emergency room for evaluation Discharge Disposition: OTHER INSTITUTION NOT DEFINED
[2021-10-01] MEDS ORDERED: MELATONIN 3 MG TABLET PO SCH (21:00)
== END 2021-10-01 14:10 | disposition home or self-care (01) | DRG 885 ==
LOC: EC 17:03 → 3MHU 21:51
PROVIDERS: ADMIT Psychiatry & Neurology Psychiatry; ATTEND Psychiatry & Neurology Psychiatry
DX: F33.2 Major depressive disorder, recurrent severe without psychotic features (principal); R45.851 Suicidal ideations; R64 Cachexia; Z68.1 Body mass index [BMI] 19.9 or less, adult; I67.1 Cerebral aneurysm, nonruptured; J44.9 Chronic obstructive pulmonary disease, unspecified; F13.10 Sedative, hypnotic or anxiolytic abuse, uncomplicated; Z20.822 Contact with and (suspected) exposure to COVID-19; R45.850 Homicidal ideations; F12.10 Cannabis abuse, uncomplicated; F41.9 Anxiety disorder, unspecified; F43.10 Post-traumatic stress disorder, unspecified; G47.00 Insomnia, unspecified; I25.2 Old myocardial infarction; F17.210 Nicotine dependence, cigarettes, uncomplicated; Z71.6 Tobacco abuse counseling; Z79.899 Other long term (current) drug therapy; Z86.73 Personal history of transient ischemic attack (TIA), and cerebral infarction without residual deficits; Z86.69 Personal history of other diseases of the nervous system and sense organs; Z59.00 Homelessness unspecified; Z56.0 Unemployment, unspecified; Z71.41 Alcohol abuse counseling and surveillance of alcoholic; Z71.51 Drug abuse counseling and surveillance of drug abuser; Z91.030 Bee allergy status; Z91.018 Allergy to other foods; Z83.3 Family history of diabetes mellitus; Z82.49 Family history of ischemic heart disease and other diseases of the circulatory system; Z82.3 Family history of stroke; Z82.5 Family history of asthma and other chronic lower respiratory diseases
CPT/HCPCS: 80053; 80061; 80306; 81003; 82075; 83036; 84443; 85025; 87635; 99285

== ENCOUNTER 2021-10-07 19:45 | Observation (INO) | payer OTHER ==
[2021-10-07] MEDS ORDERED: RX INFO: IV CONTRAST WAS GIVEN 1 EACH MISC MISCELLANE PRN (20:16)
[2021-10-07 20:34] LABS: Basophils # (A) 0.1 k/uL (0-0.2); Basophils % (A) 1 %; Eosinophils # (A) 0.4 k/uL (0-0.7); Eosinophils % (A) 4 %; HCT 40.4 % (39.0-53.0); HGB 13.2 gm/dL (13.0-17.5); Lymphocytes # (A) 2.9 k/uL (1.0-4.8); Lymphocytes % (A) 27 %; MCH 30.6 pg (25.0-35.0); MCHC 32.8 g/dL (31.0-37.0); MCV 93.3 fL (80.0-100.0); Mean Platelet Volume 7.1; Monocytes # (A) 0.5 k/uL (0-1.0); Monocytes % (A) 5 %; Neutrophils # (A) 6.6 k/uL (1.3-7.7); Neutrophils % (A) 62 %; Platelet Count 323 k/uL (150-450); RBC 4.32 m/uL (4.30-5.90); RDW 13.3 % (11.5-15.5); WBC 10.7 k/uL (3.8-10.6)
[2021-10-07 20:42] LABS: INR 0.9 (<1.2); Prothrombin Time 9.8 sec (9.0-12.0)
[2021-10-07 20:47] LABS: ALT 14 U/L (4-49); AST 24 U/L (17-59); African American GFR (CKD) >90 (>60 ml/min/1.73 sqM); Albumin 4.1 g/dL (3.5-5.0); Alkaline Phosphatase 88 U/L (38-126); Anion Gap 11 mmol/L; Blood Urea Nitrogen 19 mg/dL (9-20); Calcium 9.2 mg/dL (8.4-10.2); Carbon Dioxide 26 mmol/L (22-30); Chloride 102 mmol/L (98-107); Glucose 136 mg/dL (74-99); Lipase 137 U/L (23-300); Magnesium 1.7 mg/dL (1.6-2.3); Non-African American GFR(CKD) >90 (>60 ml/min/1.73 sqM); Potassium 3.8 mmol/L (3.5-5.1); Sodium 139 mmol/L (137-145); Total Bilirubin 0.2 mg/dL (0.2-1.3); Total Protein 6.7 g/dL (6.3-8.2)
--- NOTE | 2021-10-07 21:13 | CT ---
EXAMINATION TYPE: CT chest w con DATE OF EXAM: 10/07/2021 COMPARISON: Radiograph 08/02/2021. HISTORY: Chest pain, LT arm/leg numbness. CT DLP: 221.1 mGycm Automated exposure control for dose reduction was used. TECHNIQUE: CT scan of the chest is performed with IV Contrast, patient injected with 100 mL of Isovue 300. MIP Images are created on CT scanner and reviewed. 3D reconstructed images are created on an independent workstation and reviewed. FINDINGS: LUNGS: There is moderate centrilobular emphysema. There is moderate tree in bud pattern opacities in the right middle lobe and minimal in the bilateral lower lobes. There is no pleural effusion or pneum othorax seen. The tracheobronchial tree is patent. MEDIASTINUM: There are no greater than 1 cm hilar or mediastinal lymph nodes. No pericardial effusi on is seen. OTHER: There is a 1.4 cm simple appearing left renal cyst. No additional significant abnormality is seen. IMPRESSION: Right middle lobe predominant tree in bud pattern opacities, can be seen with infectious or inflammat ory etiology including mycobacterium and fungal pneumonia. Emphysema.
--- NOTE | 2021-10-07 21:38 | ED ---
General Adult HPI - General Chief complaint: Chest Pain Stated complaint: Chest Pain, Numb on RT side Time Seen by Provider: 10/07/21 20:00 Source: patient Mode of arrival: wheelchair Limitations: no limitations - History of Present Illness Initial comments: 51-year-old male past medical history of CVA presents emergency Department with reported chest pain and right upper and lower extremity numbness. States that he had a stress test and cardiac catheterization 2 years ago. Denies any coronary disease. He reports the pain is intermittent. Located over the right chest wall and is described as a chest pressure. No associated nausea, vomiting or diaphoresis. No fevers, chills or cough. No shortness of breath. Denies any palliative or provocative factors. Denies any weakness in his extremity. No other alleviating, precipitating or modifying factors - Related Data Home Medications Medication Instructions Recorded Confirmed Ipratropium [place] [Atrovent Hfa] 2 puff INHALATION RT-QID PRN 08/02/2109/23 Albuterol Sulfate [Proair Hfa] 2 puff INHALATION RT-Q4H PRN 09/27/21 10/07/21 Escitalopram [Lexapro] 5 mg PO HS 10/07/21 10/07/21 Previous Rx's Medication Instructions Recorded Acetaminophen Tab [Tylenol] 650 mg PO Q4HR PRN tab 10/01/21 busPIRone HCl [Buspar] 10 mg PO BID PRN 30 Days tab 10/01/21 Amoxicillin/Potassium Clav 1 tab PO Q12HR 1 Days #14 tab 10/20/21 [Augmentin 875-125 Tablet] Ibuprofen [Motrin] 600 mg PO Q8HR PRN #20 tab 10/20/21 Allergies Allergy/AdvReac Type Severity Reaction Status Date / Time horseradish Allergy Anaphylaxis Verified 10/20/21 02:41 venom-wasp Allergy Anaphylaxis Verified 10/20/21 02:41 Review of Systems ROS Statement: Those systems with pertinent positive or pertinent negative responses have been documented in the HPI. ROS Other: All systems not noted in ROS Statement are negative. 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 Past Anesthesia/Blood Transfusion Reactions: No Reported Reaction Additional Past Anesthesia/Blood Transfusion Reaction / Comment(s): Pt has never had general/spinal anesthesia Past Psychological History: Anxiety, Bipolar, Depression, PTSD, Schizoaffective Disorder, Schizophrenia Smoking Status: Current every day smoker Past Alcohol Use History: None Reported Past Drug Use History: Marijuana - Past Family History Mother Family Medical History: CVA/TIA, Diabetes Mellitus, Myocardial Infarction (OR) Father Additional Family Medical History / Comment(s): Emphesema General Exam Limitations: no limitations General appearance: alert, in no apparent distress Head exam: Present: atraumatic, normocephalic, normal inspection Eye exam: Present: normal appearance, PERRL, EOMI. Absent: scleral icterus, conjunctival injection, periorbital swelling ENT exam: Present: normal exam, mucous membranes moist Neck exam: Present: normal inspection. Absent: tenderness, meningismus, lymphadenopathy Respiratory exam: Present: normal lung sounds bilaterally. Absent: respiratory distress, wheezes, rales, rhonchi, stridor Cardiovascular Exam: Present: regular rate, normal rhythm, normal heart sounds. Absent: systolic murmur, diastolic murmur, rubs, gallop, clicks GI/Abdominal exam: Present: soft, normal bowel sounds. Absent: distended, tenderness, guarding, rebound, rigid Extremities exam: Present: normal inspection, full ROM, normal capillary refill. Absent: tenderness, pedal edema, joint swelling, calf tenderness Back exam: Present: normal inspection Neurological exam: Present: alert, oriented X3, CN II-XII intact Psychiatric exam: Present: normal affect, normal mood Skin exam: Present: warm, dry, intact, normal color. Absent: rash Course Vital Signs 10/07/21 10/07/21 19:58 23:09 Temperature 98.8 F Pulse Rate 55 L 87 Respiratory 20 17 Rate Blood Pressure 132/65 104/69 O2 Sat by Pulse 96 96 Oximetry EKG Findings - EKG Comments: EKG Findings:: EKG demonstrates 76. OH interval 118. QRS 88. QTC 436. No acute ST segment elevations. QVC present Medical Decision Making - Medical Decision Making Upon arrival patient was placed into room 5. Thorough history and physical exam was performed. IV access is established. He is placed on continuous pulse ox and cardiac monitoring. 12-lead EKG was performed which demonstrates multiple PVCs. Laboratory studies are reviewed. As he does report to tingling in his right upper extremity a CT is performed which answers no signs of dissection. Patient is given a full dose aspirin. CT does demonstrate right middle lobe bud in tree pattern which can be seen with mycobacterium and fungal pneumonia. Patient has no fevers, shortness of breath therefore we will hold off on anabiotic treatment at this time. Did recommend admission return his troponins trsiha patient agreed to. Dr. Schofield is paged. He returns my call and accepts admission - Lab Data Result diagrams: 10/08/21 02:56 10/08/21 02:56 Lab Results 10/07/21 10/07/21 10/07/21 Range/Units 20:28 20:28 20:28 WBC 10.7 H (3.8-10.6) k/uL RBC 4.32 (4.30-5.90) m/uL Hgb 13.2 (13.0-17.5) gm/dL Hct 40.4 (39.0-53.0) % MCV 93.3 (80.0-100.0) fL MCH 30.6 (25.0-35.0) pg MCHC 32.8 (31.0-37.0) g/dL RDW 13.3 (11.5-15.5) % Plt Count 323 (150-450) k/uL MPV 7.1 Neutrophils % 62 % Lymphocytes % 27 % Monocytes % 5 % Eosinophils % 4 % Basophils % 1 % Neutrophils # 6.6 (1.3-7.7) k/uL Lymphocytes # 2.9 (1.0-4.8) k/uL Monocytes # 0.5 (0-1.0) k/uL Eosinophils # 0.4 (0-0.7) k/uL Basophils # 0.1 (0-0.2) k/uL PT 9.8 (9.0-12.0) sec INR 0.9 (<1.2) APTT 24.0 (22.0-30.0) sec Sodium 139 (137-145) mmol/L Potassium 3.8 (3.5-5.1) mmol/L Chloride 102 (98-107) mmol/L Carbon Dioxide 26 (22-30) mmol/L Anion Gap 11 mmol/L BUN 19 (9-20) mg/dL Creatinine 0.93 (0.66-1.25) mg/dL Est GFR (CKD-EPI)AfAm >90 (>60 ml/min/1.73 sqM) Est GFR (CKD-EPI)NonAf >90 (>60 ml/min/1.73 sqM) Glucose 136 H (74-99) mg/dL Calcium 9.2 (8.4-10.2) mg/dL Magnesium 1.7 (1.6-2.3) mg/dL Total Bilirubin 0.2 (0.2-1.3) mg/dL AST 24 (17-59) U/L ALT 14 (4-49) U/L Alkaline Phosphatase 88 (38-126) U/L Troponin I (0.000-0.034) ng/mL Total Protein 6.7 (6.3-8.2) g/dL Albumin 4.1 (3.5-5.0) g/dL Lipase 137 (23-300) U/L 10/07/21 Range/Units 20:28 WBC (3.8-10.6) k/uL RBC (4.30-5.90) m/uL Hgb (13.0-17.5) gm/dL Hct (39.0-53.0) % MCV (80.0-100.0) fL MCH (25.0-35.0) pg MCHC (31.0-37.0) g/dL RDW (11.5-15.5) % Plt Count (150-450) k/uL MPV Neutrophils % % Lymphocytes % % Monocytes % % Eosinophils % % Basophils % % Neutrophils # (1.3-7.7) k/uL Lymphocytes # (1.0-4.8) k/uL Monocytes # (0-1.0) k/uL Eosinophils # (0-0.7) k/uL Basophils # (0-0.2) k/uL PT (9.0-12.0) sec INR (<1.2) APTT (22.0-30.0) sec Sodium (137-145) mmol/L Potassium (3.5-5.1) mmol/L Chloride (98-107) mmol/L Carbon Dioxide (22-30) mmol/L Anion Gap mmol/L BUN (9-20) mg/dL Creatinine (0.66-1.25) mg/dL Est GFR (CKD-EPI)AfAm (>60 ml/min/1.73 sqM) Est GFR (CKD-EPI)NonAf (>60 ml/min/1.73 sqM) Glucose (74-99) mg/dL Calcium (8.4-10.2) mg/dL Magnesium (1.6-2.3) mg/dL Total Bilirubin (0.2-1.3) mg/dL AST (17-59) U/L ALT (4-49) U/L Alkaline Phosphatase (38-126) U/L Troponin I <0.012 (0.000-0.034) ng/mL Total Protein (6.3-8.2) g/dL Albumin (3.5-5.0) g/dL Lipase (23-300) U/L Disposition Clinical Impression: Chest pain Disposition: ADMITTED IP TO THIS [facility] Condition: Stable Is patient prescribed a controlled substance at d/c from ED?: No Decision to Admit Reason: Admit from EC Decision Date: 10/07/21 Decision Time: 22:18
[2021-10-07] MEDS ORDERED: ACETAMINOPHEN TAB 325 MG TAB PO PRN ×2 (22:19→23:08)
[2021-10-07] MEDS ORDERED: NALOXONE 0.4 MG/ML 1 ML VIAL IV PRN (22:19)
[2021-10-07] MEDS ORDERED: ASPIRIN 81 MG PO STA (22:25)
[2021-10-07] MEDS ORDERED: busPIRone HCl 10 MG TAB PO PRN (23:08)
[2021-10-07] MEDS ORDERED: IPRATROPIUM 0.5 MG/2.5 ML NEBU INHALATION PRN (23:08)
[2021-10-07] MEDS ORDERED: ALBUTEROL NEBULIZED 2.5 MG/3 ML INHALATION PRN (23:08)
[2021-10-07] MEDS: ESCITALOPRAM 5 MG TAB PO SCH (23:51)
[2021-10-08 04:07] LABS: Basophils # (A) 0.1 k/uL (0-0.2); Basophils % (A) 1 %; Eosinophils # (A) 0.4 k/uL (0-0.7); Eosinophils % (A) 4 %; HCT 39.8 % (39.0-53.0); HGB 12.8 gm/dL (13.0-17.5); Lymphocytes # (A) 3.2 k/uL (1.0-4.8); Lymphocytes % (A) 32 %; MCH 30.7 pg (25.0-35.0); MCHC 32.2 g/dL (31.0-37.0); MCV 95.4 fL (80.0-100.0); Mean Platelet Volume 7.4; Monocytes # (A) 0.6 k/uL (0-1.0); Monocytes % (A) 6 %; Neutrophils # (A) 5.4 k/uL (1.3-7.7); Neutrophils % (A) 54 %; Platelet Count 300 k/uL (150-450); RBC 4.18 m/uL (4.30-5.90); RDW 13.4 % (11.5-15.5); WBC 9.8 k/uL (3.8-10.6)
[2021-10-08 04:20] LABS: African American GFR (CKD) >90 (>60 ml/min/1.73 sqM); Anion Gap 5 mmol/L; Blood Urea Nitrogen 19 mg/dL (9-20); Calcium 8.9 mg/dL (8.4-10.2); Carbon Dioxide 25 mmol/L (22-30); Chloride 106 mmol/L (98-107); Glucose 104 mg/dL (74-99); Non-African American GFR(CKD) >90 (>60 ml/min/1.73 sqM); Potassium 4.3 mmol/L (3.5-5.1); Sodium 136 mmol/L (137-145)
--- NOTE | 2021-10-08 08:53 | P.CRDCN ---
History of Present Illness History of present illness: HISTORY OF PRESENTING ILLNESS This is a pleasant 51-year-old male past medical history significant for CVA in 2013, schizophrenia, depression, COPD, chronic nicotine dependence, marijuana use. He does not follow with a automobile travel club counselor. We have been asked to see in consultation for chest pain. Patient is seen and examined at bedside. He presents to the emergency department with complaints of chest pain. He states he has been having intermittent left sided chest pressure for 3 days. He states it comes and goes. Non-radiating, Non-exertional. It is relieved by belching. No specific aggravating factors. Denies associated nausea, diaphoresis, palpitations, shortness of breath, lightheadedness, dizziness, near syncope, or syncope. Denies symptoms of orthopnea or PND. He denies history of CAD, HI, hypertension. He continues to smoke 1-1.5PPD. Denies alcohol use or illicit drug use. He also smokes marijuana. DIAGNOSTICS EKG reveals sinus rhythm HR 76, with PVCs, no significant ST-T wave abnormalities. Telemetry tracings indicate sinus mechanism HR 50s-70s. Chest CT-Emphysema. Right middle lobe predominant tree in bud pattern opacities. Echocardiogram 07/2019- EF 5055 percent, mild mitral regurgitation, mild to moderate pulmonary hypertension 45mmHg Lexiscan 09/2018 negative for reversibility, Abnormality noted secondary to diaphragmatic attenuation Laboratory reviewed, troponin negative 3, covid 19 PCR negative, sodium 136, potassium 4.3, BUN 19, serum creatinine 0.8, WBC 11.8, hemoglobin 12.8, platelets 300 Current home medications include Buspar, Atrovent, Lexapro, Albuterol, PRN tylenol REVIEW OF SYSTEMS At the time of my exam: CONSTITUTIONAL: Denies fever or chills. CARDIOVASCULAR: + chest pain, Denies shortness of breath, orthopnea, PND or palpitations. RESPIRATORY: Denies cough. GASTROINTESTINAL: Denies abdominal pain, diarrhea, constipation, nausea or vomiting. MUSCULOSKELETAL: Denies myalgias. NEUROLOGIC: Denies numbness, tingling, headache or weakness. ENDOCRINE: Denies fatigue, weight change, polydipsia or polyurina. GENITOURINARY: Denies burning, hematuria or urgency with micturation. HEMATOLOGIC: Denies history of anemia or bleeding. PHYSICAL EXAMINATION Blood pressure 114/61, heart rate 59, afebrile, saturations greater than 92% on room air CONSTITUTIONAL: No apparent distress. HEENT: Head is normocephalic. Pupils are equal, round. Sclerae anicteric. Mucous membranes of the mouth are moist. No JVD. No carotid bruit. CHEST EXAMINATION: Lungs are clear to auscultation. No chest wall tenderness is noted on palpation or with deep breathing. HEART EXAMINATION: Regular rate and rhythm. S1, S2 heard. No murmurs, gallops or rub. ABDOMEN: Soft, nontender. Positive bowel sounds. EXTREMITIES: 2+ peripheral pulses, no lower extremity edema and no calf tenderness. SKIN: warm, dry NEUROLOGIC EXAMINATION: Patient is awake, alert and oriented x3. ASSESSMENT Chest pain, atypical, acute coronary syndrome has been ruled out History of CVA 2012 COPD History of Schizophrenia and Depression Chronic nicotine dependence Marijuana use PLAN -An acute coronary event has been ruled out with no EKG evidence of ischemia and negative cardiac enzymes. -Obtain 2D echocardiogram and doppler study to assess cardiac structure and function. -Perform stress echo test to assess for stress induced cardiac ischemia. -If stress test is normal, ok to discharge from cardiology standpoint. -Smoking cessation discussed and highly recommended. Thank you kindly for this consultation. Nurse Practitioner note has been reviewed, I agree with a documented findings and plan of care. Patient was seen and examined. 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 Past Anesthesia/Blood Transfusion Reactions: No Reported Reaction Additional Past Anesthesia/Blood Transfusion Reaction / Comment(s): Pt has never had general/spinal anesthesia Past Psychological History: Anxiety, Bipolar, Depression, PTSD, Schizoaffective Disorder, Schizophrenia Additional Psychological History / Comment(s): . Smoking Status: Current every day smoker Past Alcohol Use History: None Reported Additional Past Alcohol Use History / Comment(s): Patient is homeless, states he smokes cigarettes and marijuana when he is able. Past Drug Use History: Marijuana Additional Drug Use History / Comment(s): Pt occasionally will smoke marijuana if it is available. - Past Family History Mother Family Medical History: CVA/TIA, Diabetes Mellitus, Myocardial Infarction (HI) Father Additional Family Medical History / Comment(s): Emphysema Medications and Allergies Home Medications Medication Instructions Recorded Confirmed Type Ipratropium [place] [Atrovent Hfa] 2 puff INHALATION RT-QID PRN 08/02/21 10/07/21 History Albuterol Sulfate [Proair Hfa] 2 puff INHALATION RT-Q4H PRN 09/27/21 10/07/21 History Acetaminophen Tab [Tylenol] 650 mg PO Q4HR PRN tab 10/01/21 10/07/21 Rx busPIRone HCl [Buspar] 10 mg PO BID PRN 30 Days tab 10/01/21 10/07/21 Rx Escitalopram [Lexapro] 5 mg PO HS 10/07/21 10/07/21 History Allergies Allergy/AdvReac Type Severity Reaction Status Date / Time horseradish Allergy Anaphylaxis Verified 10/07/21 21:27 venom-wasp Allergy Anaphylaxis Verified 10/07/21 21:27 Physical Exam Vitals: Vital Signs Temp Pulse Pulse Resp BP BP Pulse Ox 10/08/21 04:00 97.8 F 59 L 16 114/61 95 10/07/21 23:24 97.6 F 64 16 107/68 98 10/07/21 23:09 87 17 104/69 96 10/07/21 19:58 98.8 F 55 L 20 132/65 96 Intake and Output 10/07/21 10/08/21 10/08/21 22:59 06:59 14:59 Output Total 0 Balance 0 Output: Urine 0 Other: # Voids 0 1 Weight 58.06 kg 55.7 kg Results 10/08/21 02:56 10/08/21 02:56 Cardiac Enzymes 10/07/21 10/07/21 10/07/21 Range/Units 20:28 20:28 23:45 AST 24 (17-59) U/L Troponin I <0.012 <0.012 (0.000-0.034) ng/mL 10/08/21 Range/Units 02:56 AST (17-59) U/L Troponin I <0.012 (0.000-0.034) ng/mL Coagulation 10/07/21 Range/Units 20:28 PT 9.8 (9.0-12.0) sec APTT 24.0 (22.0-30.0) sec CBC 10/07/21 10/08/21 Range/Units 20:28 02:56 WBC 10.7 H 9.8 (3.8-10.6) k/uL RBC 4.32 4.18 L (4.30-5.90) m/uL Hgb 13.2 12.8 L (13.0-17.5) gm/dL Hct 40.4 39.8 (39.0-53.0) % Plt Count 323 300 (150-450) k/uL Comprehensive Metabolic Panel 10/07/21 10/08/21 Range/Units 20:28 02:56 Sodium 139 136 L (137-145) mmol/L Potassium 3.8 4.3 (3.5-5.1) mmol/L Chloride 102 106 (98-107) mmol/L Carbon Dioxide 26 25 (22-30) mmol/L BUN 19 19 (9-20) mg/dL Creatinine 0.93 0.88 (0.66-1.25) mg/dL Glucose 136 H 104 H (74-99) mg/dL Calcium 9.2 8.9 (8.4-10.2) mg/dL AST 24 (17-59) U/L ALT 14 (4-49) U/L Alkaline Phosphatase 88 (38-126) U/L Total Protein 6.7 (6.3-8.2) g/dL Albumin 4.1 (3.5-5.0) g/dL Current Medications Generic Name Dose Route Start Last Admin Trade Name Freq PRN Reason Stop Dose Admin Acetaminophen 650 mg 10/07/21 22:19 Acetaminophen Tab 325 Mg Tab PO Q6HR PRN Mild Pain or Fever > 100.5 Acetaminophen 650 mg 10/07/21 23:08 Acetaminophen Tab 325 Mg Tab PO Q4HR PRN Pain/Discomfort Albuterol Sulfate 2.5 mg 10/07/21 23:08 Albuterol Nebulized 2.5 Mg/3 Ml INHALATION RT-Q4H PRN Shortness Of Breath Buspirone HCl 10 mg 10/07/21 23:08 Buspirone Hcl 10 Mg Tab PO BID PRN Anxiety Escitalopram Oxalate 5 mg 10/07/21 23:15 10/07/21 23:51 Escitalopram 5 Mg Tab PO 5 mg HS HANNAH Administration Ipratropium [place] 0.5 mg 10/07/21 23:08 Ipratropium 0.5 Mg/2.5 Ml Nebu INHALATION RT-QID PRN Shortness Of Breath Miscellaneous Information 1 each 10/07/21 20:16 Rx Info: Iv Contrast Was Given 1 Each Misc MISCELLANE 10/09/21 20:17 DAILY PRN Per Protocol Naloxone HCl 0.2 mg 10/07/21 22:19 Naloxone 0.4 Mg/Ml 1 Ml Vial IV Q2M PRN Opioid Reversal Intake and Output 10/07/21 10/08/21 10/08/21 22:59 06:59 14:59 Output Total 0 Balance 0 Output: Urine 0 Other: # Voids 0 1 Weight 58.06 kg 55.7 kg 10/08/21 02:56 10/08/21 02:56
[2021-10-08] MEDS ORDERED: DOBUTamine DRIP for NUC MED 500 MG/250 ML BAG IV ONE (10:10)
[2021-10-08] MEDS ORDERED: DOBUTamine DRIP for NUC MED 500 MG in DEXTROSE/WATER 1 250ML.BAG IV PRN (10:14)
--- NOTE | 2021-10-08 10:48 | ECHOF ---
Referral Reason:cp MEASUREMENTS -------- HEIGHT: 182.9 cm WEIGHT: 55.3 kg BP: RVIDd: 2.5 cm (< 3.3) IVSd: 0.8 cm (0.6 - 1.1) LVIDd: 3.6 cm (3.9 - 5.3) LVPWd: 1.1 cm (0.6 - 1.1) IVSs: 1.2 cm LVIDs: 3.0 cm LVPWs: 1.4 cm LA Diam: 2.8 cm (2.7 - 3.8) LAESV Index (A-L): 23.40 ml/m Ao Diam: 3.2 cm (2.0 - 3.7) AV Cusp: 2.2 cm (1.5 - 2.6) LA Diam: 3.6 cm (2.7 - 3.8) MV E Raheel: 0.89 m/s MV DecT: 249 ms MV A Raheel: 0.78 m/s MV E/A Ratio: 1.15 FINDINGS -------- Sinus rhythm. This was a technically good study. LV size, wall thickness and systolic function are normal, with an EF greater than 55%. The left feliciano tricular size is normal. The right ventricle is normal in size. Normal LA size by volume 22+/-6 ml/m2. The right atrial size is normal. The aortic valve is trileaflet, and appears structurally normal. No aortic stenosis or regurgitation. Mild mitral regurgitation is present. Mild tricuspid regurgitation present. Right ventricular systolic pressure is normal at < 35 mmHg. The pulmonic valve was not well visualized. There is no pericardial effusion. CONCLUSIONS -------- 1. LV size, wall thickness and systolic function are normal, with an EF greater than 55%. 2. The left ventricular size is normal. 3. The right ventricle is normal in size. 4. Normal LA size by volume 22+/-6 ml/m2. 5. The right atrial size is normal. 6. The aortic valve is trileaflet, and appears structurally normal. No aortic stenosis or regurgitati on. 7. Mild mitral regurgitation is present. 8. Mild tricuspid regurgitation present. 9. The pulmonic valve was not well visualized. 10. There is no pericardial effusion. CUTTING DEPARTMENT SUPERVISOR: Marietta Orona RD
[2021-10-08] MEDS ORDERED: ATROPINE SULFATE 0.1 MG/ML 10ML SYRINGE ONE (10:55)
[2021-10-08 14:06] VITALS: BMI 16.6
--- NOTE | 2021-10-08 15:09 | ECHOS ---
STRESS ECHOCARDIOGRAM INDICATIONS: Chest pain. BASELINE HEART RATE: 54 BASELINE BLOOD PRESSURE: 106/62 MAXIMUM HEART RATE: 162 MAXIMUM BLOOD PRESSURE: 122/51 85% MPHR: 143 100% MPHR: 168 METS: NA MAXIMUM STAGE REACHED: 5 TOTAL EXERCISE TIME: 13:25 infusion time CLINICAL INFORMATION: Baseline EKG shows sinus rhythm, normal axis, normal intervals. Patient was given intravenous dobutamine over a period of 15 minutes as per protocol. Patient also received 0.5 mg of atropine, achieving 85% of predicted maximal heart rate without chest pain or diagnostic ST-segment depression. Baseline echo shows normal left ventricular size, wall motion and systolic function. Post dobutamine infusion there is normal hyperdynamic response of all segments of myocardium noted. CONCLUSIONS: 1. Negative stress test by EKG criteria. 2. Negative dobutamine stress echo. MMODL / IJN: [id number] /
[2021-10-08] MEDS: ASPIRIN 81 MG PO SCH (16:38)
[2021-10-08 16:50] VITALS: TEMP 97.9
[2021-10-08] MEDS: ESCITALOPRAM 5 MG TAB PO SCH (20:55)
[2021-10-09 08:55] VITALS: BP 114/66; PULSE 70; RESP 18
[2021-10-09] MEDS: ASPIRIN 81 MG PO SCH (09:06)
--- NOTE | 2021-10-09 10:04 | PN ---
PROGRESS NOTE Mr. Chaudhari is 51-year-old male who presented with symptoms of chest discomfort. He is doing well this morning, ambulating without difficulty. He is denying any chest pain, no dizziness, palpitations. He denies any nausea. On the monitor, he is in sinus mechanism. He underwent stress echocardiogram revealed no evidence of inducible ischemia. His left ventricular systolic function is normal. He has mild mitral and tricuspid regurgitation. PHYSICAL EXAMINATION: Blood pressure 114/60 with a heart rate in the 70s. Lungs: Clear. Heart regular rate and rhythm S1, S2. No S3. No rub. Abdomen: Soft nontender. Extremities: No edema. IMPRESSION: 1. Chest discomfort with no evidence to suggest acute coronary syndrome with normal stress echocardiogram. 2. History of cerebrovascular accident. 3. History of chronic obstructive pulmonary disease and chronic tobacco use. RECOMMENDATIONS: From the cardiac standpoint, the patient is stable to be discharged home and follow up with his primary care physician, Dr. Schofield. MMBARTL / GURMEETN: [id number] /
--- NOTE | 2021-10-09 11:58 | PN ---
PROGRESS NOTE DATE OF SERVICE: 10/08/2021 CHIEF COMPLAINT: Chest pain. HISTORY OF PRESENT ILLNESS: This gentleman is doing well. He is being evaluated by Cardiology and they have cleared him for discharge. He was to go home today, but he had no place to go, no one to pick him up, and he will stay over until 10/09. PHYSICAL EXAM: Chest is clear. Cardiac exam is normal. Abdomen is soft, nontender. IMPRESSION: 1. Atypical chest pain. 2. Chronic obstructive pulmonary disease. 3. Homelessness. 4. History of substance abuse. 5. Depression. PLAN: Discharge on Tuesday 10/09. MMODL / IJN: [id number] /
--- NOTE | 2021-10-09 11:58 | HP ---
HISTORY AND PHYSICAL CHIEF COMPLAINT: Chest pain. HISTORY OF PRESENT ILLNESS: This is another admission for this 51-year-old homeless white male. He came to the emergency room complaining of chest pain. EKG and enzymes are normal. He has had no fever, chills, cough, etc. He is homeless, and he frequently comes into the hospital with various complaints of chest pain, shortness of breath, depression, suicidal thoughts, etc. REVIEW OF SYSTEMS: Otherwise normal. He has had no fever, chills, cough, hemoptysis, chest injury, etc. Past medical history, family history, personal and social histories are all otherwise unremarkable or noncontributory or unchanged. PHYSICAL EXAMINATION: Blood pressure 142/85 with a pulse of 80, respirations of 20, and he is afebrile. In general he appeared to be slender, disheveled, and in no acute distress. Skin color is normal. Skin is warm and dry. Lymph nodes are not enlarged. Head, ears, eyes, nose, mouth and throat were normal. Neck veins were not distended. Chest demonstrated decreased breath sounds throughout due to his emphysema. There were no rales or rhonchi. Cardiac exam was normal sinus rhythm and there were no murmurs or extra sounds. The abdomen is flat, soft and nontender. The extremities are normal. Neurologically he is intact. IMPRESSION: 1. Atypical chest pain. 2. Chronic obstructive pulmonary disease. 3. Homelessness. 4. History of substance abuse. 5. Depression. PLAN: 1. Bedrest. 2. IV fluids. 3. Serial EKGs and enzymes and cardiology consult. MMODL / IJN: [id number] /
--- NOTE | 2021-10-09 12:13 | DS ---
DISCHARGE SUMMARY DATE OF DISCHARGE: 10/09/2021 CHIEF COMPLAINT: Atypical chest pain. HISTORY OF PRESENT ILLNESS AND PHYSICAL EXAMINATION: Details of this man's history and physical can be found in the initial workup. LABORATORY STUDIES: While he was in the hospital, he had laboratory studies, details of which can be found in the laboratory section of his chart. COURSE IN HOSPITAL: After admission, he was placed on bedrest, started intravenous fluids and had serial EKGs and enzymes. He was seen by Cardiology and he was cleared. It was felt that he could go home on usual activity, diet and medication and be followed up in the office in several days. FINAL DIAGNOSES: 1. Atypical chest pain. 2. Chronic obstructive pulmonary disease. 3. Malnutrition. 4. Homelessness. 5. History of substance abuse. 6. History of depression and suicidal thoughts. OPERATIONS: None. CONSULTATION: Cardiology. He is improved. MMBARTL / JOANNA: [id number] /
== END 2021-10-09 09:24 | disposition home or self-care (01) ==
LOC: EC 19:45 → 3SCARD 22:25
PROVIDERS: ADMIT Family Medicine; ATTEND Family Medicine
DX: R07.89 Other chest pain (principal); J43.2 Centrilobular emphysema; E46 Unspecified protein-calorie malnutrition; I49.3 Ventricular premature depolarization; I27.20 Pulmonary hypertension, unspecified; I08.1 Rheumatic disorders of both mitral and tricuspid valves; I67.1 Cerebral aneurysm, nonruptured; N28.1 Cyst of kidney, acquired; R20.0 Anesthesia of skin; R20.2 Paresthesia of skin; G43.909 Migraine, unspecified, not intractable, without status migrainosus; I25.2 Old myocardial infarction; F25.9 Schizoaffective disorder, unspecified; F31.9 Bipolar disorder, unspecified; F43.10 Post-traumatic stress disorder, unspecified; F41.9 Anxiety disorder, unspecified; F17.210 Nicotine dependence, cigarettes, uncomplicated; Z20.822 Contact with and (suspected) exposure to COVID-19; Z79.899 Other long term (current) drug therapy; Z91.038 Other insect allergy status; Z91.018 Allergy to other foods; Z59.00 Homelessness unspecified; Z87.898 Personal history of other specified conditions; Z86.73 Personal history of transient ischemic attack (TIA), and cerebral infarction without residual deficits; Z98.890 Other specified postprocedural states; Z83.3 Family history of diabetes mellitus; Z82.3 Family history of stroke; Z82.49 Family history of ischemic heart disease and other diseases of the circulatory system; Z82.5 Family history of asthma and other chronic lower respiratory diseases
CPT/HCPCS: 99285; 36415; 93005; 93306; 93351; 80053; 80048; 83690; 83735; 84484 ×2; 85025 ×2; 85610; 85730; 87635; 71260; G0378 ×3; J1250; J0461; Q9967

== ENCOUNTER 2021-10-20 02:29 | Emergency (ER) | payer OTHER ==
[2021-10-20 02:41] VITALS: BP 110/70; PULSE 83; RESP 18; TEMP 98.2
[2021-10-20] MEDS ORDERED: AMOXIC-POT CLAV 875MG STARTER PACK 2 TAB BTL PO STA (03:41)
[2021-10-20] MEDS ORDERED: IBUPROFEN 600 MG STARTER PACK 4 TAB BTL PO STA (03:41)
--- NOTE | 2021-10-20 03:41 | ED ---
ENT HPI - General Chief complaint: Dental/Oral Stated complaint: Dental pain, Headache Time Seen by Provider: 10/20/21 03:19 Source: patient Mode of arrival: ambulatory Limitations: no limitations - History of Present Illness MD complaint: tooth pain -: week(s) Location: tooth # () Severity: moderate Quality: aching Consistency: intermittent Improves with: none Worsens with: none Context- Dental: history of dental caries - Related Data Home Medications Medication Instructions Recorded Confirmed Ipratropium [place] [Atrovent Hfa] 2 puff INHALATION RT-QID PRN 08/02/21 10/07/21 Albuterol Sulfate [Proair Hfa] 2 puff INHALATION RT-Q4H PRN 09/27/21 10/07/21 Escitalopram [Lexapro] 5 mg PO HS 10/07/21 10/07/21 Previous Rx's Medication Instructions Recorded Acetaminophen Tab [Tylenol] 650 mg PO Q4HR PRN tab 10/01/21 busPIRone HCl [Buspar] 10 mg PO BID PRN 30 Days tab 10/01/21 Amoxicillin/Potassium Clav 1 tab PO Q12HR 1 Days #14 tab 10/20/21 [Augmentin 875-125 Tablet] Ibuprofen [Motrin] 600 mg PO Q8HR PRN #20 tab 10/20/21 Allergies Allergy/AdvReac Type Severity Reaction Status Date / Time horseradish Allergy Anaphylaxis Verified 10/20/21 02:41 venom-wasp Allergy Anaphylaxis Verified 10/20/21 02:41 Review of Systems ROS Statement: Those systems with pertinent positive or pertinent negative responses have been documented in the HPI. ROS Other: All systems not noted in ROS Statement are negative. 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 Past Anesthesia/Blood Transfusion Reactions: No Reported Reaction Additional Past Anesthesia/Blood Transfusion Reaction / Comment(s): Pt has never had general/spinal anesthesia Past Psychological History: Anxiety, Bipolar, Depression, PTSD, Schizoaffective Disorder, Schizophrenia Smoking Status: Current every day smoker Past Alcohol Use History: None Reported Past Drug Use History: Marijuana - Past Family History Mother Family Medical History: CVA/TIA, Diabetes Mellitus, Myocardial Infarction (CT) Father Additional Family Medical History / Comment(s): Emphysema General Exam Limitations: no limitations General appearance: alert, in no apparent distress Head exam: Present: atraumatic, normocephalic Eye exam: Present: normal appearance, PERRL, EOMI. Absent: scleral icterus, conjunctival injection ENT exam: Present: other (Patient has gingival polyp adjacent to tooth #19. There are no epithelial changes. Moderately extensive caries. There is some gingivitis left mandibular. No palpable abscess.) Neck exam: Present: normal inspection, full ROM, other (No neck or submandibular fullness or tenderness). Absent: tenderness, meningismus Respiratory exam: Present: normal lung sounds bilaterally. Absent: respiratory distress, wheezes, rales, rhonchi, stridor Cardiovascular Exam: Present: regular rate, normal rhythm, normal heart sounds. Absent: systolic murmur, diastolic murmur, rubs, gallop Skin exam: Present: warm, dry, intact, normal color. Absent: rash Course Vital Signs 10/20/21 02:39 Temperature 98.2 F Pulse Rate 83 Respiratory 18 Rate Blood Pressure 110/70 O2 Sat by Pulse 98 Oximetry Medical Decision Making - Medical Decision Making Patient's 51-year-old man with dental caries and toothache. There is no detectable abscess at this point. The patient does have a gingival polyp and history of tobacco use. At this point no obvious indication of malignancy. Discussed following up for possible biopsy. Discussed follow-up with the dental clinic. Discussed return parameters. Disposition Clinical Impression: Dental caries, Gingival polyp Disposition: HOME SELF-CARE Condition: Fair Instructions (If sedation given, give patient instructions): Toothache (ED) Additional Instructions: As we discussed, follow-up with the oral surgeon to see if a biopsy is necessary for the gingival polyp that is observed. Prescriptions: Amoxicillin/Potassium Clav [Augmentin 875-125 Tablet] 1 tab PO Q12HR 1 Days #14 tab Ibuprofen [Motrin] 600 mg PO Q8HR PRN #20 tab PRN Reason: Pain Is patient prescribed a controlled substance at d/c from ED?: No Referrals: Flash Schofield MD [Primary Care Provider] - 1-2 days Zenon Castañeda DDS [STAFF PHYSICIAN] - 1-2 days
== END 2021-10-20 04:11 | disposition home or self-care (01) ==
LOC: EC 02:29
DX: K02.9 Dental caries, unspecified (principal); K06.8 Other specified disorders of gingiva and edentulous alveolar ridge; J44.9 Chronic obstructive pulmonary disease, unspecified; F31.9 Bipolar disorder, unspecified; F41.9 Anxiety disorder, unspecified; F25.9 Schizoaffective disorder, unspecified; F17.200 Nicotine dependence, unspecified, uncomplicated; F12.90 Cannabis use, unspecified, uncomplicated; Z86.73 Personal history of transient ischemic attack (TIA), and cerebral infarction without residual deficits; Z79.1 Long term (current) use of non-steroidal anti-inflammatories (NSAID); Z79.51 Long term (current) use of inhaled steroids; Z79.899 Other long term (current) drug therapy
CPT/HCPCS: 99282

== ENCOUNTER 2021-10-27 00:09 | Emergency (ER) | payer OTHER ==
[2021-10-27 00:55] VITALS: BP 119/73; PULSE 60; RESP 18; TEMP 97
--- NOTE | 2021-10-27 10:20 | ED ---
General Adult HPI - General Chief complaint: Psychiatric Symptoms Stated complaint: Mental Health Time Seen by Provider: 10/27/21 03:03 Source: patient, police, RN notes reviewed, old records reviewed Mode of arrival: ambulatory Limitations: no limitations - History of Present Illness Initial comments: 51-year-old male presenting for evaluation of depression, suicidal ideation. Patient states that he wants to step out in front of traffic. He denies any ingestion or suicide attempt. Patient denies alcohol or drugs of abuse. He states he does follow with [facility] that he is currently homeless. - Related Data Home Medications Medication Instructions Recorded Confirmed Ipratropium [place] [Atrovent Hfa] 2 puff INHALATION RT-QID PRN 08/02/21 10/07/21 Albuterol Sulfate [Proair Hfa] 2 puff INHALATION RT-Q4H PRN 09/27/21 10/07/21 Escitalopram [Lexapro] 5 mg PO HS 10/07/21 10/07/21 Previous Rx's Medication Instructions Recorded Acetaminophen Tab [Tylenol] 650 mg PO Q4HR PRN tab 10/01/21 busPIRone HCl [Buspar] 10 mg PO BID PRN 30 Days tab 10/01/21 Amoxicillin/Potassium Clav 1 tab PO Q12HR 1 Days #14 tab 10/20/21 [Augmentin 875-125 Tablet] Ibuprofen [Motrin] 600 mg PO Q8HR PRN #20 tab 10/20/21 Allergies Allergy/AdvReac Type Severity Reaction Status Date / Time horseradish Allergy Anaphylaxis Verified 10/27/21 00:55 venom-wasp Allergy Anaphylaxis Verified 10/27/21 00:55 Review of Systems ROS Statement: Those systems with pertinent positive or pertinent negative responses have been documented in the HPI. ROS Other: All systems not noted in ROS Statement are negative. 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 Past Anesthesia/Blood Transfusion Reactions: No Reported Reaction Additional Past Anesthesia/Blood Transfusion Reaction / Comment(s): Pt has never had general/spinal anesthesia Past Psychological History: Anxiety, Bipolar, Depression, PTSD, Schizoaffective Disorder, Schizophrenia Smoking Status: Current every day smoker Past Alcohol Use History: None Reported Past Drug Use History: Marijuana - Past Family History Mother Family Medical History: CVA/TIA, Diabetes Mellitus, Myocardial Infarction ([place]) General Exam Limitations: no limitations General appearance: alert, in no apparent distress Head exam: Present: atraumatic, normocephalic Eye exam: Present: normal appearance, PERRL ENT exam: Present: normal exam Neck exam: Present: normal inspection. Absent: tenderness, meningismus Respiratory exam: Present: normal lung sounds bilaterally. Absent: respiratory distress, wheezes Cardiovascular Exam: Present: regular rate, normal rhythm GI/Abdominal exam: Present: soft. Absent: distended, tenderness, guarding Extremities exam: Present: normal inspection, normal capillary refill. Absent: pedal edema Neurological exam: Present: alert, oriented X3 Psychiatric exam: Present: depressed, flat affect, suicidal ideation Skin exam: Present: warm, dry, intact. Absent: cyanosis, diaphoretic Course Vital Signs 10/27/21 00:50 Temperature 97.0 F L Pulse Rate 60 Respiratory 18 Rate Blood Pressure 119/73 O2 Sat by Pulse 98 Oximetry - Reevaluation(s) Reevaluation #1: 10/27/21 0700 Patient observed in the emergency department awaiting EPS evaluation. Medical Decision Making - Medical Decision Making Patient evaluated by EPS and [facility]. He does sign a safety contract and is given referral for outpatient resources. He will be discharged to the [facility]. Disposition Clinical Impression: Homelessness, Depression Disposition: HOME SELF-CARE Condition: Fair Instructions (If sedation given, give patient instructions): Depression (ED) Is patient prescribed a controlled substance at d/c from ED?: No Referrals: Flash Schofield MD [Primary Care Provider] - 1-2 days Time of Disposition: 10:19
== END 2021-10-27 10:31 | disposition home or self-care (01) ==
LOC: EC 00:09
DX: F32.A Depression, unspecified (principal); Z59.00 Homelessness unspecified; J44.9 Chronic obstructive pulmonary disease, unspecified; F41.9 Anxiety disorder, unspecified; F43.12 Post-traumatic stress disorder, chronic; F25.9 Schizoaffective disorder, unspecified; F17.200 Nicotine dependence, unspecified, uncomplicated; F12.90 Cannabis use, unspecified, uncomplicated; Z86.73 Personal history of transient ischemic attack (TIA), and cerebral infarction without residual deficits
CPT/HCPCS: 82075; 99284

== ENCOUNTER 2021-11-04 00:27 | Emergency (ER) | payer OTHER ==
--- NOTE | 2021-11-04 02:55 | ED ---
Psych HPI - General Source: patient, RN notes reviewed, old records reviewed Mode of arrival: ambulatory Limitations: no limitations - History of Present Illness MD Complaint: suicidal ideation, feels depressed -: minutes(s) Associated Psychiatric Symptoms: depression, suicidal ideation History of same: Yes Quality: constant Improves With: none Worsens With: none Context: significant life stressor Associated Symptoms: denies other symptoms Treatments Prior to Arrival: placed on mental health hold If Self Harm: admits thoughts of self harm <Zenon Bee - Last Filed: 11/04/21 04:47> <Chidi Camacho - Last Filed: 11/04/21 09:44> - General Chief Complaint: Psychiatric Symptoms Stated Complaint: Mental health Time Seen by Provider: 11/04/21 02:44 - History of Present Illness Initial Comments: This is a 51-year-old male to the ER for evaluation patient is well-known to our emergency department for psychiatric illness. Patient presents today with suicidal thoughts. Patient has a long history of psychiatric illness and suicidal thoughts. Patient was in emergency yesterday for psychiatric evaluation was discharged home. Patient states symptoms are the same, no drug or alcohol use recently. Patient remains homeless (Zenon Bee) - Related Data Home Medications Medication Instructions Recorded Confirmed Ipratropium [place] [Atrovent Hfa] 2 puff INHALATION RT-QID PRN 08/02/21 10/07/21 Albuterol Sulfate [Proair Hfa] 2 puff INHALATION RT-Q4H PRN 09/27/21 10/07/21 Escitalopram [Lexapro] 5 mg PO HS 10/07/21 10/07/21 Previous Rx's Medication Instructions Recorded Acetaminophen Tab [Tylenol] 650 mg PO Q4HR PRN tab 10/01/21 busPIRone HCl [Buspar] 10 mg PO BID PRN 30 Days tab 10/01/21 Amoxicillin/Potassium Clav 1 tab PO Q12HR 1 Days #14 tab 10/20/21 [Augmentin 875-125 Tablet] Ibuprofen [Motrin] 600 mg PO Q8HR PRN #20 tab 10/20/21 Allergies Allergy/AdvReac Type Severity Reaction Status Date / Time horseradish Allergy Anaphylaxis Verified 11/04/21 08:49 venom-wasp Allergy Anaphylaxis Verified 11/04/21 08:49 Review of Systems ROS Other: All systems not noted in ROS Statement are negative. <CristalZenon B - Last Filed: 11/04/21 04:47> ROS Other: All systems not noted in ROS Statement are negative. <Chidi Camacho - Last Filed: 11/04/21 09:44> ROS Statement: Those systems with pertinent positive or pertinent negative responses have been documented in the HPI. 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 Past Anesthesia/Blood Transfusion Reactions: No Reported Reaction Additional Past Anesthesia/Blood Transfusion Reaction / Comment(s): Pt has never had general/spinal anesthesia Past Psychological History: Anxiety, Bipolar, Depression, PTSD, Schizoaffective Disorder, Schizophrenia Smoking Status: Current every day smoker Past Alcohol Use History: None Reported Past Drug Use History: Marijuana - Past Family History Mother Family Medical History: CVA/TIA, Diabetes Mellitus, Myocardial Infarction ([place]) Father Additional Family Medical History / Comment(s): Emphesema <Nehemias Beeophcj Badillo - Last Filed: 11/04/21 04:47> General Exam Limitations: no limitations General appearance: alert, in no apparent distress Head exam: Present: atraumatic, normocephalic, normal inspection Eye exam: Present: normal appearance, PERRL, EOMI. Absent: scleral icterus, conjunctival injection, periorbital swelling ENT exam: Present: normal exam, mucous membranes moist Neck exam: Present: normal inspection. Absent: tenderness, meningismus, lymphadenopathy Respiratory exam: Present: normal lung sounds bilaterally. Absent: respiratory distress, wheezes, rales, rhonchi, stridor Cardiovascular Exam: Present: regular rate, normal rhythm, normal heart sounds. Absent: systolic murmur, diastolic murmur, rubs, gallop, clicks GI/Abdominal exam: Present: soft, normal bowel sounds. Absent: distended, tenderness, guarding, rebound, rigid Extremities exam: Present: normal inspection, full ROM, normal capillary refill. Absent: tenderness, pedal edema, joint swelling, calf tenderness Back exam: Present: normal inspection Neurological exam: Present: alert, oriented X3, CN II-XII intact Psychiatric exam: Present: normal affect, normal mood Skin exam: Present: warm, dry, intact, normal color. Absent: rash <Zenon Bee - Last Filed: 11/04/21 04:47> Course <Zenon Bee - Last Filed: 11/04/21 04:47> Vital Signs 11/04/21 11/04/21 01:31 05:11 Temperature 97.1 F L 97.6 F Pulse Rate 72 66 Respiratory 18 16 Rate Blood Pressure 164/101 104/55 O2 Sat by Pulse 97 98 Oximetry - Reevaluation(s) Reevaluation #1: 11/04/21 04:56 Medical record is reviewed (Zenon Bee) Reevaluation #2: 11/04/21 04:56 Medically clear for psychiatric evaluation (Zenon Bee) Medical Decision Making <Chidi Camacho - Last Filed: 11/04/21 09:44> - Medical Decision Making Patient was evaluated by EPS case discussed with psychiatrist recommends patient be discharged with a safety plan. (Chidi Camacho) Disposition <Zenon Bee - Last Filed: 11/04/21 04:47> Is patient prescribed a controlled substance at d/c from ED?: No Time of Disposition: 09:44 <Chidi Camacho - Last Filed: 11/04/21 09:44> Clinical Impression: Homelessness, Mood disorder Disposition: HOME SELF-CARE Condition: Stable Instructions (If sedation given, give patient instructions): Depression (ED) Additional Instructions: Please return to the Emergency Department if symptoms worsen or any other concerns. Referrals: Flash Schofield MD [Primary Care Provider] - 1-2 days
[2021-11-04 05:12] VITALS: PULSE 66
[2021-11-04 09:58] VITALS: BP 111/63; RESP 18; TEMP 98.7
== END 2021-11-04 09:48 | disposition home or self-care (01) ==
LOC: EC 00:27
DX: F39 Unspecified mood [affective] disorder (principal); Z59.00 Homelessness unspecified; J44.9 Chronic obstructive pulmonary disease, unspecified; F41.9 Anxiety disorder, unspecified; F31.9 Bipolar disorder, unspecified; F43.12 Post-traumatic stress disorder, chronic; F25.9 Schizoaffective disorder, unspecified; F17.200 Nicotine dependence, unspecified, uncomplicated; F12.90 Cannabis use, unspecified, uncomplicated; Z86.73 Personal history of transient ischemic attack (TIA), and cerebral infarction without residual deficits
CPT/HCPCS: 82075; 99284

== ENCOUNTER 2021-11-21 03:21 | Emergency (ER) | payer OTHER ==
[2021-11-21 03:32] VITALS: TEMP 97.3
[2021-11-21 04:33] VITALS: RESP 18
--- NOTE | 2021-11-21 04:53 | ED ---
Psych HPI - General Chief Complaint: Psychiatric Symptoms Stated Complaint: Mental Health Time Seen by Provider: 11/21/21 03:45 Source: patient Mode of arrival: ambulatory - History of Present Illness MD Complaint: suicidal ideation -: hour(s) Associated Psychiatric Symptoms: depression History of same: Yes Quality: getting worse Improves With: none Worsens With: none Context: significant life stressor - Related Data Home Medications Medication Instructions Recorded Confirmed Ipratropium [place] [Atrovent Hfa] 2 puff INHALATION RT-QID PRN 08/02/21 11/04/21 Albuterol Sulfate [Proair Hfa] 2 puff INHALATION RT-Q4H PRN 09/27/21 11/04/21 Ergocalciferol [Vitamin D2 (1250 1,250 mcg PO QMONTHLY 11/04/21 11/04/21 Mcg = 80959 Iu)] Mirtazapine [Remeron] 30 mg PO HS 11/04/21 11/04/21 PARoxetine [Paxil] 20 mg PO DAILY 11/04/21 11/04/21 QUEtiapine FUMARATE [SEROquel] 25 mg PO HS 11/04/21 11/04/21 Allergies Allergy/AdvReac Type Severity Reaction Status Date / Time bee venom protein (honey bee) Allergy Anaphylaxis Verified 11/21/21 03:31 horseradish Allergy Anaphylaxis Verified 11/21/21 03:31 venom-wasp Allergy Anaphylaxis Verified 11/21/21 03:31 Review of Systems ROS Statement: Those systems with pertinent positive or pertinent negative responses have been documented in the HPI. ROS Other: All systems not noted in ROS Statement are negative. Constitutional: Denies: fever Respiratory: Denies: cough, dyspnea Cardiovascular: Denies: chest pain, palpitations Gastrointestinal: Denies: abdominal pain, vomiting Genitourinary: Denies: dysuria, hematuria Musculoskeletal: Denies: back pain Skin: Denies: rash Neurological: Denies: headache Psychiatric: Reports: depression, suicidal thoughts. 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 Past Anesthesia/Blood Transfusion Reactions: No Reported Reaction Additional Past Anesthesia/Blood Transfusion Reaction / Comment(s): Pt has never had general/spinal anesthesia Past Psychological History: Anxiety, Bipolar, Depression, PTSD, Schizoaffective Disorder, Schizophrenia Smoking Status: Current every day smoker Past Alcohol Use History: None Reported Past Drug Use History: Marijuana - Past Family History Mother Family Medical History: CVA/TIA, Diabetes Mellitus, Myocardial Infarction ([place]) Father Additional Family Medical History / Comment(s): Emphesema General Exam Limitations: no limitations General appearance: alert, in no apparent distress Head exam: Present: atraumatic, normocephalic Eye exam: Present: normal appearance. Absent: scleral icterus, conjunctival injection Neck exam: Present: normal inspection, full ROM Respiratory exam: Present: normal lung sounds bilaterally. Absent: respiratory distress, wheezes, rales, rhonchi, stridor Cardiovascular Exam: Present: regular rate, normal rhythm, normal heart sounds. Absent: systolic murmur, diastolic murmur, rubs, gallop GI/Abdominal exam: Present: soft. Absent: distended, tenderness, guarding, rebound, rigid Extremities exam: Present: normal inspection, normal capillary refill. Absent: pedal edema, calf tenderness Back exam: Present: normal inspection Neurological exam: Present: alert Skin exam: Present: warm, dry, intact, normal color. Absent: rash Course Vital Signs 11/21/21 11/21/21 11/21/21 03:26 04:30 04:31 Temperature 97.3 F L Pulse Rate 63 76 77 Respiratory 22 18 18 Rate Blood Pressure 125/76 127/74 129/76 O2 Sat by Pulse 99 95 95 Oximetry 11/21/21 06:20 Temperature Pulse Rate 78 Respiratory 18 Rate Blood Pressure 119/70 O2 Sat by Pulse 96 Oximetry Disposition Clinical Impression: Mood disorder Disposition: HOME SELF-CARE Condition: Good Instructions (If sedation given, give patient instructions): Mood Disorders (ED) Is patient prescribed a controlled substance at d/c from ED?: No Referrals: Flash Schofield MD [Primary Care Provider] - 1-2 days
[2021-11-21 06:22] VITALS: BP 119/70; PULSE 78
== END 2021-11-21 07:40 | disposition home or self-care (01) ==
LOC: EC 03:21
DX: F39 Unspecified mood [affective] disorder (principal); F31.9 Bipolar disorder, unspecified; F41.9 Anxiety disorder, unspecified; J44.9 Chronic obstructive pulmonary disease, unspecified; F17.200 Nicotine dependence, unspecified, uncomplicated; F12.90 Cannabis use, unspecified, uncomplicated; Z79.51 Long term (current) use of inhaled steroids; Z79.899 Other long term (current) drug therapy
CPT/HCPCS: 82075; 99284

== ENCOUNTER 2021-11-23 01:03 | Emergency (ER) | payer OTHER ==
--- NOTE | 2021-11-23 01:33 | ED ---
General Adult HPI - General Chief complaint: Shortness of Breath Stated complaint: Difficulty Breathing Time Seen by Provider: 11/23/21 01:15 Source: patient Mode of arrival: ambulatory Limitations: no limitations - History of Present Illness Initial comments: 51 year-old male patient presenting to the emergency department intially reporting chest discomfort and shortness of breath. When questioned further he admitted that he is homeless and it is very cold outside. He states he just needed to come in to rest and get warm for a bit. States that his symptoms are not changed from his usual. Denies any fainting or dizziness. Denies current chest pain or shortness of breath. - Related Data Home Medications Medication Instructions Recorded Confirmed Ipratropium [place] [Atrovent Hfa] 2 puff INHALATION RT-QID PRN 08/02/21 11/04/21 Albuterol Sulfate [Proair Hfa] 2 puff INHALATION RT-Q4H PRN 09/27/21 11/04/21 Ergocalciferol [Vitamin D2 (1250 1,250 mcg PO QMONTHLY 11/04/21 11/04/21 Mcg = 40273 Iu)] Mirtazapine [Remeron] 30 mg PO HS 11/04/21 11/04/21 PARoxetine [Paxil] 20 mg PO DAILY 11/04/21 11/04/21 QUEtiapine FUMARATE [SEROquel] 25 mg PO HS 11/04/21 11/04/21 Allergies Allergy/AdvReac Type Severity Reaction Status Date / Time bee venom protein (honey bee) Allergy Anaphylaxis Verified 11/23/21 01:10 horseradish Allergy Anaphylaxis Verified 11/23/21 01:10 venom-wasp Allergy Anaphylaxis Verified 11/23/21 01:10 Review of Systems ROS Statement: Those systems with pertinent positive or pertinent negative responses have been documented in the HPI. ROS Other: All systems not noted in ROS Statement are negative. 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 Past Anesthesia/Blood Transfusion Reactions: No Reported Reaction Additional Past Anesthesia/Blood Transfusion Reaction / Comment(s): Pt has never had general/spinal anesthesia Past Psychological History: Anxiety, Bipolar, Depression, PTSD, Schizoaffective Disorder, Schizophrenia Smoking Status: Current every day smoker Past Alcohol Use History: None Reported Past Drug Use History: Marijuana - Past Family History Mother Family Medical History: CVA/TIA, Diabetes Mellitus, Myocardial Infarction ([place]) Father Additional Family Medical History / Comment(s): Emphesema General Exam Limitations: no limitations General appearance: alert, in no apparent distress, other (This is a well- developed, thin appearing adult male in no acute distress.) Eye exam: Present: normal appearance, PERRL, EOMI. Absent: scleral icterus, conjunctival injection, periorbital swelling ENT exam: Present: normal exam, normal oropharynx, mucous membranes moist Respiratory exam: Present: normal lung sounds bilaterally. Absent: respiratory distress, wheezes, rales, rhonchi, stridor Cardiovascular Exam: Present: regular rate, normal rhythm, normal heart sounds. Absent: systolic murmur, diastolic murmur, rubs, gallop, clicks GI/Abdominal exam: Present: soft, normal bowel sounds. Absent: distended, tenderness, guarding, rebound, rigid Neurological exam: Present: alert, oriented X3, CN II-XII intact Psychiatric exam: Present: normal affect, normal mood Skin exam: Present: warm, dry, intact, normal color. Absent: rash Course Vital Signs 11/23/21 11/23/21 01:05 02:15 Temperature 97.3 F L Pulse Rate 77 Respiratory 22 16 Rate Blood Pressure 128/81 O2 Sat by Pulse 98 Oximetry EKG Findings - EKG Comments: EKG Findings:: EKG obtained at 0119 shows normal sinus rhythm with a ventricular rate of 69, MS interval 138, QRS duration 94, QT 390, QTC 417. No evidence of ST elevation or depression. Disposition Clinical Impression: Homeless Disposition: HOME SELF-CARE Condition: Good Is patient prescribed a controlled substance at d/c from ED?: No Referrals: Flash Schofield MD [Primary Care Provider] - 1-2 days
[2021-11-23 06:20] VITALS: BP 136/74; PULSE 71; RESP 15; TEMP 98.5
== END 2021-11-23 06:46 | disposition home or self-care (01) ==
LOC: EC 01:03
DX: Z59.00 Homelessness unspecified (principal); J44.9 Chronic obstructive pulmonary disease, unspecified; F31.9 Bipolar disorder, unspecified; F41.9 Anxiety disorder, unspecified; F25.9 Schizoaffective disorder, unspecified; F17.200 Nicotine dependence, unspecified, uncomplicated; F12.90 Cannabis use, unspecified, uncomplicated; Z79.899 Other long term (current) drug therapy
CPT/HCPCS: 93005; 99283

== ENCOUNTER 2021-12-11 23:21 | Emergency (ER) | payer OTHER ==
[2021-12-12 00:13] VITALS: TEMP 97.5
--- NOTE | 2021-12-12 03:06 | ED ---
Chest Pain HPI - General Chief Complaint: Chest Pain Stated Complaint: Chest Pain, Shortness of Breath Time Seen by Provider: 12/12/21 02:58 Source: patient, RN notes reviewed, old records reviewed Mode of arrival: ambulatory Limitations: no limitations - History of Present Illness Initial Comments: This is a 31-year-old male to the emergency department for evaluation patient presents today for evaluation of chest pain mildly concerned for chest pain patient also admits to being homeless mildly depressed but not homicidal or suicidal. He denies drugs or alcohol. Patient states his does not feel well feels weak feels cold has no place to go tonight. Complaint: chest pain, other (Weakness not feeling well) -: hour(s) Onset: during rest Pain Location: substernal Pain Radiation: none Severity: mild Severity scale (1-10): 1 Quality: tightness Consistency: now resolved Improves With: nothing Worsens With: nothing Anginal Symptoms: other (none) Other Symptoms: other (none) Treatments Prior to Arrival: none - Related Data Home Medications Medication Instructions Recorded Confirmed Ipratropium [place] [Atrovent Hfa] 2 puff INHALATION RT-QID PRN 08/02/21 0 11/04/21 Albuterol Sulfate [Proair Hfa] 2 puff INHALATION RT-Q4H PRN 09/27/21 11/04/21 Ergocalciferol [Vitamin D2 (1250 1,250 mcg PO QMONTHLY 11/04/21 11/04/21 Mcg = 16894 Iu)] Mirtazapine [Remeron] 30 mg PO HS 11/04/21 11/04/21 PARoxetine [Paxil] 20 mg PO DAILY 11/04/21 11/04/21 QUEtiapine FUMARATE [SEROquel] 25 mg PO HS 11/04/21 11/04/21 Allergies Allergy/AdvReac Type Severity Reaction Status Date / Time bee venom protein (honey bee) Allergy Anaphylaxis Verified 12/12/21 00:11 horseradish Allergy Anaphylaxis Verified 12/12/21 00:11 venom-wasp Allergy Anaphylaxis Verified 12/12/21 00:11 Review of Systems ROS Statement: Those systems with pertinent positive or pertinent negative responses have been documented in the HPI. ROS Other: All systems not noted in ROS Statement are negative. 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 Past Anesthesia/Blood Transfusion Reactions: No Reported Reaction Additional Past Anesthesia/Blood Transfusion Reaction / Comment(s): Pt has never had general/spinal anesthesia Past Psychological History: Anxiety, Bipolar, Depression, PTSD, Schizoaffective Disorder, Schizophrenia Smoking Status: Current every day smoker Past Alcohol Use History: None Reported Past Drug Use History: Marijuana - Past Family History Mother Family Medical History: CVA/TIA, Diabetes Mellitus, Myocardial Infarction ([place]) Father Additional Family Medical History / Comment(s): Emphesema General Exam Limitations: no limitations General appearance: alert, in no apparent distress Head exam: Present: atraumatic, normocephalic, normal inspection Eye exam: Present: normal appearance, PERRL, EOMI. Absent: scleral icterus, conjunctival injection, periorbital swelling ENT exam: Present: normal exam, mucous membranes moist Neck exam: Present: normal inspection. Absent: tenderness, meningismus, lymphadenopathy Respiratory exam: Present: normal lung sounds bilaterally. Absent: respiratory distress, wheezes, rales, rhonchi, stridor Cardiovascular Exam: Present: regular rate, normal rhythm, normal heart sounds. Absent: systolic murmur, diastolic murmur, rubs, gallop, clicks GI/Abdominal exam: Present: soft, normal bowel sounds. Absent: distended, tenderness, guarding, rebound, rigid Extremities exam: Present: normal inspection, full ROM, normal capillary refill. Absent: tenderness, pedal edema, joint swelling, calf tenderness Back exam: Present: normal inspection Neurological exam: Present: alert, oriented X3, CN II-XII intact Psychiatric exam: Present: normal affect, normal mood Skin exam: Present: warm, dry, intact, normal color. Absent: rash Course Vital Signs 12/12/21 12/12/21 00:11 03:24 Temperature 97.5 F L Pulse Rate 65 66 Respiratory 16 18 Rate Blood Pressure 123/70 110/86 O2 Sat by Pulse 100 98 Oximetry - Reevaluation(s) Reevaluation #1: 12/12/21 04:32 Medical record is reviewed Reevaluation #2: 12/12/21 04:32 Patient has no current complaints Reevaluation #3: 12/12/21 04:32 Patient informed of results questions answered Reevaluation #4: 12/12/21 04:32 Patient is without chest pain Chest Pain MDM - MDM 51 male to the emergency department for evaluation of chest pain [facility] for evaluation of different issues regarding mental illness and homelessness. Patient is in no acute distress currently and can be discharged home Disposition Clinical Impression: Chest pain, Homelessness Disposition: HOME SELF-CARE Condition: Fair Instructions (If sedation given, give patient instructions): Chest Pain (ED) Is patient prescribed a controlled substance at d/c from ED?: No Referrals: Flash Schofield MD [Primary Care Provider] - 1-2 days
[2021-12-12 06:07] VITALS: BP 130/71; PULSE 76; RESP 16
== END 2021-12-12 07:02 | disposition home or self-care (01) ==
LOC: EC 23:21
DX: R07.9 Chest pain, unspecified (principal); Z59.00 Homelessness unspecified; J44.9 Chronic obstructive pulmonary disease, unspecified; Z86.73 Personal history of transient ischemic attack (TIA), and cerebral infarction without residual deficits; G43.909 Migraine, unspecified, not intractable, without status migrainosus; Z79.51 Long term (current) use of inhaled steroids; F41.9 Anxiety disorder, unspecified; F31.9 Bipolar disorder, unspecified; F43.10 Post-traumatic stress disorder, unspecified; F20.9 Schizophrenia, unspecified; F17.200 Nicotine dependence, unspecified, uncomplicated; F12.90 Cannabis use, unspecified, uncomplicated
CPT/HCPCS: 99284

== ENCOUNTER 2021-12-15 23:17 | Emergency (ER) | payer OTHER ==
[2021-12-15 23:53] VITALS: BP 116/73; PULSE 74; RESP 19; TEMP 98
--- NOTE | 2021-12-16 03:42 | ED ---
General Adult HPI - General Chief complaint: Psychiatric Symptoms Stated complaint: Mental health Time Seen by Provider: 12/16/21 02:16 Source: patient, RN notes reviewed Mode of arrival: ambulatory - History of Present Illness Initial comments: 51-year-old male presents to the emergency department requesting psychiatric evaluation. Patient states he is suicidal and wants to kill himself with a knife. Patient reports previous history of mental illness and is a patient of [facility]. States he is no longer taking Xanax which helped calm him down. Patient also reports that he is homeless and has nowhere to sleep tonight. Patient denies attempting to harm himself. He has no further complaints at this time. - Related Data Home Medications Medication Instructions Recorded Confirmed Ipratropium [place] [Atrovent Hfa] 2 puff INHALATION RT-QID PRN 08/02/21 11/04/21 Albuterol Sulfate [Proair Hfa] 2 puff INHALATION RT-Q4H PRN 09/27/21 11/04/21 Ergocalciferol [Vitamin D2 (1250 1,250 mcg PO QMONTHLY 11/04/21 11/04/21 Mcg = 71776 Iu)] Mirtazapine [Remeron] 30 mg PO HS 11/04/21 11/04/21 PARoxetine [Paxil] 20 mg PO DAILY 11/04/21 11/04/21 QUEtiapine FUMARATE [SEROquel] 25 mg PO HS 11/04/21 11/04/21 Allergies Allergy/AdvReac Type Severity Reaction Status Date / Time bee venom protein (honey bee) Allergy Anaphylaxis Verified 12/15/21 23:53 horseradish Allergy Anaphylaxis Verified 12/15/21 23:53 venom-wasp Allergy Anaphylaxis Verified 12/15/21 23:53 Review of Systems ROS Statement: Those systems with pertinent positive or pertinent negative responses have been documented in the HPI. ROS Other: All systems not noted in ROS Statement are negative. 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 Past Anesthesia/Blood Transfusion Reactions: No Reported Reaction Additional Past Anesthesia/Blood Transfusion Reaction / Comment(s): Pt has never had general/spinal anesthesia Past Psychological History: Anxiety, Bipolar, Depression, PTSD, Schizoaffective Disorder, Schizophrenia Smoking Status: Current every day smoker Past Alcohol Use History: None Reported Past Drug Use History: Marijuana - Past Family History Mother Family Medical History: CVA/TIA, Diabetes Mellitus, Myocardial Infarction ([place]) Father Additional Family Medical History / Comment(s): Emphesema General Exam Limitations: no limitations (Well-developed, well-nourished male in no acute distress. Initial temperature 98.0, pulse 74, respirations 19, blood pressure 116/73, pulse ox 99% on room air.) General appearance: alert, in no apparent distress ENT exam: Present: normal exam, normal oropharynx, mucous membranes moist Respiratory exam: Present: normal lung sounds bilaterally. Absent: respiratory distress, wheezes, rales, rhonchi, stridor Cardiovascular Exam: Present: regular rate, normal rhythm, normal heart sounds. Absent: systolic murmur, diastolic murmur, rubs, gallop, clicks GI/Abdominal exam: Present: soft, normal bowel sounds. Absent: distended, tenderness, guarding, rebound, rigid Neurological exam: Present: alert, oriented X3, CN II-XII intact Psychiatric exam: Present: flat affect Skin exam: Present: warm, dry, intact, normal color Course Vital Signs 12/15/21 23:51 Temperature 98 F Pulse Rate 74 Respiratory 19 Rate Blood Pressure 116/73 O2 Sat by Pulse 99 Oximetry Medical Decision Making - Medical Decision Making 51-year-old male with a past medical history of mental illness and homelessness presents to the emergency department requesting psychiatric evaluation. Upon exam, patient is well-appearing, well kempt, and cooperative with plan of care. Physical exam findings are unremarkable. Patient verbalizes thoughts of suicide by self-inflicted knife wound; denies any attempts currently. Vital signs are stable. BAT negative. Patient is medically cleared and pending psychiatric evaluation from EPS. EPS evaluated patient; he will not be admitted for psychiatric services. Resources were provided. Patient will be discharged and encouraged to utilize resources. Return parameters were discussed in detail. Patient verbalizes understanding. This patient's care was discussed with my attending, Dr. Krishna. - Lab Data Lab Results 12/16/21 Range/Units 03:44 Urine Opiates Screen Not Detected (NotDetected) Ur Oxycodone Screen Not Detected (NotDetected) Urine Methadone Screen Not Detected (NotDetected) Ur Propoxyphene Screen Not Detected (NotDetected) Ur Barbiturates Screen Not Detected (NotDetected) U Tricyclic Antidepress Not Detected (NotDetected) Ur Phencyclidine Scrn Not Detected (NotDetected) Ur Amphetamines Screen Not Detected (NotDetected) U Methamphetamines Scrn Not Detected (NotDetected) U Benzodiazepines Scrn Not Detected (NotDetected) Urine Cocaine Screen Not Detected (NotDetected) U Marijuana (THC) Screen Detected H (NotDetected) Disposition Clinical Impression: Chronic mental illness, Homelessness Disposition: HOME SELF-CARE Condition: Stable Instructions (If sedation given, give patient instructions): Suicide Prevention (ED) Additional Instructions: Utilize resources provided. Keep follow-up appointments with [facility] and take her medications as prescribed. Return to the emergency department with any new, worsening, or concerning symptoms. Is patient prescribed a controlled substance at d/c from ED?: No Referrals: Flash Schofield MD [Primary Care Provider] - 1-2 days Time of Disposition: 05:10
[2021-12-16 04:08] LABS: Cocaine Screen,Urine Not Detected (NotDetected); Phencyclidine Screen,Urine Not Detected (NotDetected); Urn Cannabinoid Scrn Detected (NotDetected)
[2021-12-16 04:09] LABS: Amphetamine Screen,Urine Not Detected (NotDetected); Barbiturate Screen,Urine Not Detected (NotDetected); Benzodiazepines Screen,Urine Not Detected (NotDetected); Methadone Screen, Urine Not Detected (NotDetected); Opiate Screen,Urine Not Detected (NotDetected); Oxycodone Screen, Urine Not Detected (NotDetected); Tricyclic Antidepressant,Urine Not Detected (NotDetected)
== END 2021-12-16 05:19 | disposition home or self-care (01) ==
LOC: EC 23:17
DX: F99 Mental disorder, not otherwise specified (principal); Z59.00 Homelessness unspecified; J44.9 Chronic obstructive pulmonary disease, unspecified; F41.9 Anxiety disorder, unspecified; F31.9 Bipolar disorder, unspecified; F43.10 Post-traumatic stress disorder, unspecified; F25.9 Schizoaffective disorder, unspecified; F17.200 Nicotine dependence, unspecified, uncomplicated; F12.90 Cannabis use, unspecified, uncomplicated; Z86.73 Personal history of transient ischemic attack (TIA), and cerebral infarction without residual deficits
CPT/HCPCS: 80306; 82075; 99284

== ENCOUNTER 2021-12-20 20:04 | Emergency (ER) | payer OTHER ==
--- NOTE | 2021-12-20 22:38 | ED ---
General Adult HPI - General Chief complaint: Psychiatric Symptoms Stated complaint: Mental Health Time Seen by Provider: 12/20/21 20:31 Source: patient, RN notes reviewed, old records reviewed Mode of arrival: ambulatory - History of Present Illness Initial comments: Patient is a 51-year-old male who presents emergency Department complaining of anxiety. Patient presents here frequently. He is homeless. He would like to be evaluated by psychiatry for possible admission. Endorses occasional suicidal ideations but denies any attempts or plans. Denies any homicidal ideations, attempts,plans. Denies any visual or auditory hallucinations. He has no other acute complaints at this time. Only uses marijuana. Would like to be evaluated by psychiatry. Denies alcohol use. - Related Data Home Medications Medication Instructions Recorded Confirmed Ipratropium [place] [Atrovent Hfa] 2 puff INHALATION RT-QID PRN 08/02/21 11/04/21 Albuterol Sulfate [Proair Hfa] 2 puff INHALATION RT-Q4H PRN 09/27/21 11/04/21 Ergocalciferol [Vitamin D2 (1250 1,250 mcg PO QMONTHLY 11/04/21 11/04/21 Mcg = 53557 Iu)] Mirtazapine [Remeron] 30 mg PO HS 11/04/21 11/04/21 PARoxetine [Paxil] 20 mg PO DAILY 11/04/21 11/04/21 QUEtiapine FUMARATE [SEROquel] 25 mg PO HS 11/04/21 11/04/21 Allergies Allergy/AdvReac Type Severity Reaction Status Date / Time bee venom protein (honey bee) Allergy Anaphylaxis Verified 12/20/21 20:28 horseradish Allergy Anaphylaxis Verified 12/20/21 20:28 venom-wasp Allergy Anaphylaxis Verified 12/20/21 20:28 Review of Systems ROS Statement: Those systems with pertinent positive or pertinent negative responses have been documented in the HPI. Review of Systems: CONST: Denies fever EYES: Denies blurry vision ENT: Denies nasal congestion C/V: Denies Chest pain RESP: Denies shortness of breath GI: Denies abdominal pain : Denies dysuria SKIN: Denies rash. MSK: Denies joint pain. NEURO: Denies headache PSYCH: Denies homicidal ideations/plans/attempts. Denies visual or auditory hallucinations. Endorses occasional suicidal ideations. Denies any plans or attempts. ROS Other: All systems not noted in ROS Statement are negative. 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 Past Anesthesia/Blood Transfusion Reactions: No Reported Reaction Additional Past Anesthesia/Blood Transfusion Reaction / Comment(s): Pt has never had general/spinal anesthesia Past Psychological History: Anxiety, Bipolar, Depression, PTSD, Schizoaffective Disorder, Schizophrenia Smoking Status: Current every day smoker Past Alcohol Use History: None Reported Past Drug Use History: Marijuana - Past Family History Mother Family Medical History: CVA/TIA, Diabetes Mellitus, Myocardial Infarction ([place]) Father Additional Family Medical History / Comment(s): Emphesema General Exam - General Exam Comments Initial Comments: General: Appears in no acute distress. HEAD: Normal with no signs of head trauma. EYES: PERRLA, EOMI, conjunctiva normal, no discharge. ENT: Hearing grossly intact, normal oropharynx. RESPIRATORY: Clear breath sounds bilaterally. No wheezes, rales, or rhonchi. C/V: Regular rate and rhythm. S1 and S2 auscultated, no edema, peripheral pulses 2+ and intact throughout ABD: Abd is soft, nontender, nondistended EXT: Normal range of motion, no obvious deformity SKIN: No rashes or lesions observed on exposed skin. NEURO: Alert and oriented 4. No focal deficits. Course Vital Signs 12/20/21 12/20/21 20:24 22:56 Temperature 98.4 F 97.7 F Pulse Rate 82 83 Respiratory 18 22 Rate Blood Pressure 122/83 147/78 O2 Sat by Pulse 97 97 Oximetry Medical Decision Making - Medical Decision Making Based on the patient's presentation and physical exam, I would like to have him evaluated by psychiatry, as he is requesting and as well as endorsing an o ccasional suicidal ideations. I do not believe that he requires any further laboratory studies or imaging other than the BAT, which is 0 as well as UDS. UDS is still pending at this time. He was in agreement this plan. Patient is medically cleared for evaluation by psychiatry. Psychiatry evaluated the patient, and determined that he does not meet inpatient criteria. He is stable for discharge home. Patient was in agreement this plan. Patient was therefore discharged home in good condition. Disposition Clinical Impression: Encounter for psychiatric assessment Disposition: HOME SELF-CARE Condition: Good Instructions (If sedation given, give patient instructions): Depression (ED) Is patient prescribed a controlled substance at d/c from ED?: No Referrals: Flash Schofield MD [Primary Care Provider] - 1-2 days
[2021-12-20 23:01] VITALS: BP 147/78; PULSE 83; RESP 22; TEMP 97.7
== END 2021-12-20 22:56 | disposition home or self-care (01) ==
LOC: EC 20:04
DX: Z04.6 Encounter for general psychiatric examination, requested by authority (principal); J44.9 Chronic obstructive pulmonary disease, unspecified; F31.9 Bipolar disorder, unspecified; F41.9 Anxiety disorder, unspecified; F25.9 Schizoaffective disorder, unspecified; F17.200 Nicotine dependence, unspecified, uncomplicated; F12.90 Cannabis use, unspecified, uncomplicated; Z79.51 Long term (current) use of inhaled steroids; Z79.899 Other long term (current) drug therapy
CPT/HCPCS: 82075; 99284

== ENCOUNTER 2021-12-21 19:11 | Emergency (ER) | payer OTHER ==
[2021-12-21 19:58] VITALS: BP 119/71; PULSE 64; RESP 19; TEMP 98
[2021-12-21 21:42] LABS: Basophils # (A) 0.1 k/uL (0-0.2); Basophils % (A) 1 %; Eosinophils # (A) 0.5 k/uL (0-0.7); Eosinophils % (A) 5 %; HCT 39.8 % (39.0-53.0); HGB 12.9 gm/dL (13.0-17.5); Lymphocytes # (A) 3.1 k/uL (1.0-4.8); Lymphocytes % (A) 31 %; MCH 30.4 pg (25.0-35.0); MCHC 32.3 g/dL (31.0-37.0); MCV 94.1 fL (80.0-100.0); Mean Platelet Volume 7.2; Monocytes # (A) 0.6 k/uL (0-1.0); Monocytes % (A) 6 %; Neutrophils # (A) 5.6 k/uL (1.3-7.7); Neutrophils % (A) 56 %; Platelet Count 321 k/uL (150-450); RBC 4.23 m/uL (4.30-5.90); RDW 13.4 % (11.5-15.5)
--- NOTE | 2021-12-21 21:43 | XR ---
EXAMINATION TYPE: XR chest 2V DATE OF EXAM: 12/21/2021 COMPARISON: 08/02/2021 HISTORY: Chest pain TECHNIQUE: FINDINGS: Heart is normal. Lungs are clear of consolidation. There are no hilar masses. Costophrenic angles are clear. Bony thorax is intact. There is no pleural effusion. IMPRESSION: No active cardiopulmonary disease. No change.
[2021-12-21 21:51] LABS: ALT 14 U/L (4-49); AST 24 U/L (17-59); African American GFR (CKD) >90 (>60 ml/min/1.73 sqM); Albumin 4.2 g/dL (3.5-5.0); Alkaline Phosphatase 89 U/L (38-126); Anion Gap 8 mmol/L; Blood Urea Nitrogen 13 mg/dL (9-20); Calcium 9.1 mg/dL (8.4-10.2); Carbon Dioxide 22 mmol/L (22-30); Chloride 105 mmol/L (98-107); Glucose 80 mg/dL (74-99); Non-African American GFR(CKD) >90 (>60 ml/min/1.73 sqM); Potassium 4.5 mmol/L (3.5-5.1); Sodium 135 mmol/L (137-145); Total Bilirubin 0.3 mg/dL (0.2-1.3); Total Protein 6.8 g/dL (6.3-8.2)
[2021-12-21 21:55] LABS: INR 0.9 (<1.2); Partial Thromboplastin Time 24.3 sec (22.0-30.0)
--- NOTE | 2021-12-21 22:14 | ED ---
Chest Pain HPI - General Chief Complaint: Chest Pain Stated Complaint: Chest Pain Time Seen by Provider: 12/21/21 21:13 Source: patient Mode of arrival: ambulatory - History of Present Illness Initial Comments: 51-year-old male presents to the emergency department with reported chest pain. States that the symptoms have been going on since this morning. Describes it as a pressure over the left side of his chest. No associated symptoms of shortness of breath, nausea, vomiting. Patient has been seen in the emergency department multiple times for similar complaint. Denies taking anything for his pain at home. No history of coronary disease. No abdominal pain or back pain. No fevers, chills or cough. No other alleviating, precipitating or modifying factors - Related Data Home Medications Medication Instructions Recorded Confirmed Ipratropium [place] [Atrovent Hfa] 2 puff INHALATION RT-QID PRN 08/02/21 11/04/21 Albuterol Sulfate [Proair Hfa] 2 puff INHALATION RT-Q4H PRN 09/27/21 11/04/21 Ergocalciferol [Vitamin D2 (1250 1,250 mcg PO QMONTHLY 11/04/21 11/04/21 Mcg = 14583 Iu)] Mirtazapine [Remeron] 30 mg PO HS 11/04/21 11/04/21 PARoxetine [Paxil] 20 mg PO DAILY 11/04/21 11/04/21 QUEtiapine FUMARATE [SEROquel] 25 mg PO HS 11/04/21 11/04/21 Allergies Allergy/AdvReac Type Severity Reaction Status Date / Time bee venom protein (honey bee) Allergy Anaphylaxis Verified 12/21/21 19:58 horseradish Allergy Anaphylaxis Verified 12/21/21 19:58 venom-wasp Allergy Anaphylaxis Verified 12/21/21 19:58 Review of Systems ROS Statement: Those systems with pertinent positive or pertinent negative responses have been documented in the HPI. ROS Other: All systems not noted in ROS Statement are negative. EKG Findings - EKG Comments: EKG Findings:: EKG demonstrates a sinus bradycardia with a ventricular rate of 57. OR of 126. QRS 92. QTC of 386. Inverted T-wave in lead 3, aVF. 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 Past Anesthesia/Blood Transfusion Reactions: No Reported Reaction Additional Past Anesthesia/Blood Transfusion Reaction / Comment(s): Pt has never had general/spinal anesthesia Past Psychological History: Anxiety, Bipolar, Depression, PTSD, Schizoaffective Disorder, Schizophrenia Smoking Status: Current every day smoker Past Alcohol Use History: None Reported Past Drug Use History: Marijuana - Past Family History Mother Family Medical History: CVA/TIA, Diabetes Mellitus, Myocardial Infarction ([place]) Father Additional Family Medical History / Comment(s): Emphesema Course Vital Signs 12/21/21 19:54 Temperature 98 F Pulse Rate 64 Respiratory 19 Rate Blood Pressure 119/71 O2 Sat by Pulse 98 Oximetry Chest Pain MDM - [facility] Patient is placed into room 5. A thorough history and physical exam was performed. 12-lead EKG is obtained. Laboratory studies are conducted. Patient is stable for discharge home as he has a negative troponin. Patient does become irate stating that he is here because he needs a place to sleep. We offered that the patient may stay in our waiting room to keep warm until the morning. Patient does agree to this plan and was discharged home in stable condition Disposition Clinical Impression: Chest pain Disposition: HOME SELF-CARE Condition: Stable Instructions (If sedation given, give patient instructions): Chest Pain (ED) Additional Instructions: Please follow up with your PCP in 2-4 days. Return to the ED for any new or worsening symptoms. Is patient prescribed a controlled substance at d/c from ED?: No Referrals: Flash Schofield MD [Primary Care Provider] - 1-2 days Time of Disposition: 22:12
== END 2021-12-21 22:25 | disposition home or self-care (01) ==
LOC: EC 19:11
DX: R07.89 Other chest pain (principal); J44.9 Chronic obstructive pulmonary disease, unspecified; F31.9 Bipolar disorder, unspecified; F41.9 Anxiety disorder, unspecified; F25.9 Schizoaffective disorder, unspecified; F17.200 Nicotine dependence, unspecified, uncomplicated; F12.90 Cannabis use, unspecified, uncomplicated; Z79.51 Long term (current) use of inhaled steroids; Z79.899 Other long term (current) drug therapy
CPT/HCPCS: 36415; 71046; 80053; 83735; 84484; 85025; 85610; 85730; 93005; 99285

== ENCOUNTER 2022-01-01 02:02 | Emergency (ER) | payer OTHER ==
[2022-01-01 02:16] VITALS: BP 115/73; PULSE 86; TEMP 97.2
--- NOTE | 2022-01-01 05:36 | ED ---
Psych HPI - General Chief Complaint: Psychiatric Symptoms Stated Complaint: Mental Health Time Seen by Provider: 01/01/22 02:44 Source: patient Mode of arrival: ambulatory - History of Present Illness MD Complaint: suicidal ideation, feels depressed -: hour(s) Associated Psychiatric Symptoms: depression, suicidal ideation History of same: Yes Quality: intermittent Improves With: none Worsens With: none - Related Data Home Medications Medication Instructions Recorded Confirmed Ipratropium [place] [Atrovent Hfa] 2 puff INHALATION RT-QID PRN 08/02/21 11/04/21 Albuterol Sulfate [Proair Hfa] 2 puff INHALATION RT-Q4H PRN 09/27/21 11/04/21 Ergocalciferol [Vitamin D2 (1250 1,250 mcg PO QMONTHLY 11/04/21 11/04/21 Mcg = 34297 Iu)] Mirtazapine [Remeron] 30 mg PO HS 11/04/21 11/04/21 PARoxetine [Paxil] 20 mg PO DAILY 11/04/21 11/04/21 QUEtiapine FUMARATE [SEROquel] 25 mg PO HS 11/04/21 11/04/21 Allergies Allergy/AdvReac Type Severity Reaction Status Date / Time bee venom protein (honey bee) Allergy Anaphylaxis Verified 01/01/22 02:16 horseradish Allergy Anaphylaxis Verified 01/01/22 02:16 venom-wasp Allergy Anaphylaxis Verified 01/01/22 02:16 Review of Systems ROS Statement: Those systems with pertinent positive or pertinent negative responses have been documented in the HPI. ROS Other: All systems not noted in ROS Statement are negative. Constitutional: Denies: fever Respiratory: Denies: cough, dyspnea Cardiovascular: Denies: chest pain, palpitations Gastrointestinal: Denies: abdominal pain, vomiting, diarrhea Genitourinary: Denies: dysuria, hematuria Musculoskeletal: Denies: back pain Skin: Denies: rash Neurological: Denies: headache, weakness Psychiatric: Reports: depression, suicidal thoughts. 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 Past Anesthesia/Blood Transfusion Reactions: No Reported Reaction Additional Past Anesthesia/Blood Transfusion Reaction / Comment(s): Pt has never had general/spinal anesthesia Past Psychological History: Anxiety, Bipolar, Depression, PTSD, Schizoaffective Disorder, Schizophrenia Smoking Status: Current every day smoker Past Alcohol Use History: None Reported Past Drug Use History: Marijuana - Past Family History Mother Family Medical History: CVA/TIA, Diabetes Mellitus, Myocardial Infarction ([place]) Father Additional Family Medical History / Comment(s): Emphesema General Exam Limitations: no limitations General appearance: alert, in no apparent distress Head exam: Present: atraumatic, normocephalic Eye exam: Present: normal appearance. Absent: scleral icterus, conjunctival injection Respiratory exam: Present: normal lung sounds bilaterally. Absent: respiratory distress, wheezes, rales, rhonchi, stridor Cardiovascular Exam: Present: regular rate, normal rhythm, normal heart sounds. Absent: systolic murmur, diastolic murmur, rubs, gallop GI/Abdominal exam: Present: soft. Absent: distended, tenderness, guarding, rebound, rigid, mass Extremities exam: Present: normal inspection, normal capillary refill. Absent: pedal edema, calf tenderness Back exam: Present: normal inspection. Absent: CVA tenderness (R), CVA tenderness (L) Neurological exam: Present: alert Psychiatric exam: Present: normal affect, depressed, suicidal ideation. Absent: agitated, anxious, flat affect, manic, homicidal ideation Skin exam: Present: warm, dry, intact, normal color. Absent: rash Course Vital Signs 01/01/22 02:11 Temperature 97.2 F L Pulse Rate 86 Respiratory 20 Rate Blood Pressure 115/73 O2 Sat by Pulse 100 Oximetry Disposition Clinical Impression: Mood disorder Disposition: HOME SELF-CARE Condition: Good Instructions (If sedation given, give patient instructions): Mood Disorders (ED ) Is patient prescribed a controlled substance at d/c from ED?: No Referrals: Flash Schofield MD [Primary Care Provider] - 1-2 days
[2022-01-01 05:49] VITALS: RESP 16
== END 2022-01-01 05:48 | disposition home or self-care (01) ==
LOC: EC 02:02
DX: F32.A Depression, unspecified (principal); R45.851 Suicidal ideations; J44.9 Chronic obstructive pulmonary disease, unspecified; F41.9 Anxiety disorder, unspecified; F25.9 Schizoaffective disorder, unspecified; F17.200 Nicotine dependence, unspecified, uncomplicated; F12.90 Cannabis use, unspecified, uncomplicated; Z79.51 Long term (current) use of inhaled steroids; Z79.899 Other long term (current) drug therapy
CPT/HCPCS: 82075; 99284

== ENCOUNTER 2022-01-21 23:11 | Emergency (ER) | payer OTHER ==
[2022-01-21 23:50] VITALS: RESP 18; TEMP 97.6
--- NOTE | 2022-01-22 01:19 | XR ---
EXAMINATION TYPE: XR chest 2V DATE OF EXAM: 01/22/2022 COMPARISON: 01/07/2022 HISTORY: Wrist pain TECHNIQUE: 2 view FINDINGS: Heart and mediastinum are normal. Lungs are clear. Diaphragm is normal. Bony thorax is inta ct. IMPRESSION: Normal chest. No change.
--- NOTE | 2022-01-22 03:00 | ED ---
Chest Pain HPI - General Chief Complaint: Chest Pain Stated Complaint: Chest Pain Time Seen by Provider: 01/22/22 01:01 Source: patient, RN notes reviewed Mode of arrival: ambulatory - History of Present Illness Initial Comments: 51-year-old male with history of CVA presents with recurrent chest wall pain. Patient states that he was having some sharp fleeting pains earlier today but has no pain at this time. Patient admittedly wants something to eat and states he is currently homeless. Patient denies any current shortness of breath. No fever or chills. No nausea or vomiting. No injury. No diaphoresis. No change in balance urination. No skin rashes or lesions. Patient is a cigarette smoker. - Related Data Home Medications Medication Instructions Recorded Confirmed Ipratropium [place] [Atrovent Hfa] 2 puff INHALATION RT-QID PRN 08/02/21 11/04/21 Albuterol Sulfate [Proair Hfa] 2 puff INHALATION RT-Q4H PRN 09/27/21 11/04/21 Ergocalciferol [Vitamin D2 (1250 1,250 mcg PO QMONTHLY 11/04/21 11/04/21 Mcg = 18462 Iu)] Mirtazapine [Remeron] 30 mg PO HS 11/04/21 11/04/21 PARoxetine [Paxil] 20 mg PO DAILY 11/04/21 11/04/21 QUEtiapine FUMARATE [SEROquel] 25 mg PO HS 11/04/21 11/04/21 Allergies Allergy/AdvReac Type Severity Reaction Status Date / Time bee venom protein (honey bee) Allergy Anaphylaxis Verified 01/21/22 23:53 horseradish Allergy Anaphylaxis Verified 01/21/22 23:53 venom-wasp Allergy Anaphylaxis Verified 01/21/22 23:53 Review of Systems ROS Statement: Those systems with pertinent positive or pertinent negative responses have been documented in the HPI. ROS Other: All systems not noted in ROS Statement are negative. EKG Findings - EKG Comments: EKG Findings:: EKG done at 2347 read by the ED attending physician reveals sinus rhythm with a rate of 69. Normal intervals. Right axis deviation. No acute ST or T-wave changes. 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 Past Anesthesia/Blood Transfusion Reactions: No Reported Reaction Additional Past Anesthesia/Blood Transfusion Reaction / Comment(s): Pt has never had general/spinal anesthesia Past Psychological History: Anxiety, Bipolar, Depression, PTSD, Schizoaffective Disorder, Schizophrenia Smoking Status: Current every day smoker Past Alcohol Use History: None Reported Past Drug Use History: Marijuana - Past Family History Mother Family Medical History: CVA/TIA, Diabetes Mellitus, Myocardial Infarction ([place]) Father Additional Family Medical History / Comment(s): Emphesema General Exam General appearance: alert, in no apparent distress Head exam: Present: atraumatic, normocephalic, normal inspection Eye exam: Present: normal appearance, PERRL, EOMI. Absent: scleral icterus, conjunctival injection, periorbital swelling ENT exam: Present: normal exam, mucous membranes moist Neck exam: Present: normal inspection, full ROM. Absent: tenderness, meningismus, lymphadenopathy Respiratory exam: Present: normal lung sounds bilaterally, chest wall tenderness. Absent: respiratory distress, wheezes, rales, rhonchi, stridor, accessory muscle use Cardiovascular Exam: Present: regular rate, normal rhythm, normal heart sounds. Absent: systolic murmur, diastolic murmur, rubs, gallop, clicks GI/Abdominal exam: Present: soft, normal bowel sounds. Absent: distended, tenderness, guarding, rebound, rigid Extremities exam: Present: normal inspection, full ROM, normal capillary refill. Absent: tenderness, pedal edema, joint swelling, calf tenderness Back exam: Present: normal inspection Neurological exam: Present: alert, oriented X3, CN II-XII intact Psychiatric exam: Present: normal affect, normal mood Skin exam: Present: warm, dry, intact, normal color. Absent: rash Course Vital Signs 01/21/22 23:48 Temperature 97.6 F Pulse Rate 77 Respiratory 18 Rate Blood Pressure 117/66 O2 Sat by Pulse 98 Oximetry Chest Pain MDM - MDM Patient essentially presenting for some place to stay for a few hours and trying to get something to eat. Suspect patient may have some mild chest wall pain. But not consistent with cardiac disease. Eyes any current symptomology. Patient counseled on smoking cessation. The case was discussed in detail with ED attending physician. Presentation, findings, treatment plan discussed in detail. Patient was told to return to the ER for any signs or symptoms worsen. Told to return immediately if any other problems arise. All questions answered. Treatment plan discussed. Patient in agreement Every effort has been made to ensure accuracy of this dictation. However, due to the limitations of electronic medical records and dictation devices, errors in charting still occur. Chest x-ray read by radiology and reviewed by me reveals no acute changes. EKG shows no acute change. Disposition Clinical Impression: Chronic chest wall pain, Homelessness, Cigarette smoker Disposition: HOME SELF-CARE Condition: Stable Instructions (If sedation given, give patient instructions): Costochondritis (ED), How to Stop Smoking (ED) Additional Instructions: Follow-up with your regular physician as directed. Return to the ER immediately if any symptoms worsen, new symptoms arise, or any other problems develop. Is patient prescribed a controlled substance at d/c from ED?: No Referrals: Flash Schofield MD [Primary Care Provider] - 1-2 days Time of Disposition: 02:57
[2022-01-22 03:40] VITALS: BP 121/68; PULSE 71
== END 2022-01-22 03:50 | disposition home or self-care (01) ==
LOC: EC 23:11
DX: R07.89 Other chest pain (principal); G89.29 Other chronic pain; F17.210 Nicotine dependence, cigarettes, uncomplicated; J44.9 Chronic obstructive pulmonary disease, unspecified; Z59.00 Homelessness unspecified; F41.9 Anxiety disorder, unspecified; F31.9 Bipolar disorder, unspecified; F43.10 Post-traumatic stress disorder, unspecified; F25.9 Schizoaffective disorder, unspecified; F12.90 Cannabis use, unspecified, uncomplicated; Z86.73 Personal history of transient ischemic attack (TIA), and cerebral infarction without residual deficits
CPT/HCPCS: 71046; 93005; 99285

== ENCOUNTER 2022-01-30 21:24 | Emergency (ER) | payer OTHER ==
[2022-01-30 21:29] VITALS: RESP 18; TEMP 97.8
--- NOTE | 2022-01-30 22:22 | XR ---
EXAMINATION TYPE: XR chest 2V DATE OF EXAM: 01/30/2022 COMPARISON: NONE HISTORY: Chest pain TECHNIQUE: FINDINGS: There is no heart failure nor confluent pneumonic infiltrate. Costophrenic angles are clear . Bony thorax is intact. Heart size is normal. IMPRESSION: No active cardiopulmonary disease. No change.
[2022-01-30 23:53] LABS: Basophils # (A) 0.1 k/uL (0-0.2); Basophils % (A) 1 %; Eosinophils # (A) 0.5 k/uL (0-0.7); Eosinophils % (A) 5 %; HCT 40.3 % (39.0-53.0); Lymphocytes # (A) 2.9 k/uL (1.0-4.8); Lymphocytes % (A) 28 %; MCH 30.2 pg (25.0-35.0); MCHC 32.3 g/dL (31.0-37.0); MCV 93.5 fL (80.0-100.0); Mean Platelet Volume 6.6; Monocytes # (A) 0.5 k/uL (0-1.0); Monocytes % (A) 5 %; Neutrophils % (A) 58 %; Platelet Count 429 k/uL (150-450); RBC 4.31 m/uL (4.30-5.90); RDW 13.8 % (11.5-15.5); WBC 10.4 k/uL (3.8-10.6)
[2022-01-30 23:54] LABS: African American GFR (CKD) >90 (>60 ml/min/1.73 sqM); Anion Gap 7 mmol/L; Blood Urea Nitrogen 16 mg/dL (9-20); Calcium 9.2 mg/dL (8.4-10.2); Carbon Dioxide 29 mmol/L (22-30); Chloride 101 mmol/L (98-107); Glucose 89 mg/dL (74-99); Magnesium 1.8 mg/dL (1.6-2.3); Non-African American GFR(CKD) >90 (>60 ml/min/1.73 sqM); Potassium 4.8 mmol/L (3.5-5.1); Sodium 137 mmol/L (137-145)
--- NOTE | 2022-01-31 03:43 | ED ---
Chest Pain HPI - General Chief Complaint: Chest Pain Stated Complaint: Oral pain,R hand numbness Time Seen by Provider: 01/31/22 01:23 Source: patient Mode of arrival: ambulatory Limitations: no limitations - History of Present Illness MD Complaint: chest pain -: hour(s) Onset: during rest Pain Location: substernal, left chest Pain Radiation: none Severity: moderate Quality: aching Consistency: constant Improves With: nothing Worsens With: nothing Treatments Prior to Arrival: none - Related Data Home Medications Medication Instructions Recorded Confirmed Ipratropium [place] [Atrovent Hfa] 2 puff INHALATION RT-QID PRN 08/02/21 11/04/21 Albuterol Sulfate [Proair Hfa] 2 puff INHALATION RT-Q4H PRN 09/27/21 11/04/21 Ergocalciferol [Vitamin D2 (1250 1,250 mcg PO QMONTHLY 11/04/21 11/04/21 Mcg = 56416 Iu)] Mirtazapine [Remeron] 30 mg PO HS 11/04/21 11/04/21 PARoxetine [Paxil] 20 mg PO DAILY 11/04/21 11/04/21 QUEtiapine FUMARATE [SEROquel] 25 mg PO HS 11/04/21 11/04/21 Allergies Allergy/AdvReac Type Severity Reaction Status Date / Time bee venom protein (honey bee) Allergy Anaphylaxis Verified 01/21/22 23:53 horseradish Allergy Anaphylaxis Verified 01/21/22 23:53 venom-wasp Allergy Anaphylaxis Verified 01/21/22 23:53 Review of Systems ROS Statement: Those systems with pertinent positive or pertinent negative responses have been documented in the HPI. ROS Other: All systems not noted in ROS Statement are negative. Constitutional: Denies: fever, chills Respiratory: Denies: cough, dyspnea Cardiovascular: Reports: chest pain. 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 Past Anesthesia/Blood Transfusion Reactions: No Reported Reaction Additional Past Anesthesia/Blood Transfusion Reaction / Comment(s): Pt has never had general/spinal anesthesia Past Psychological History: Anxiety, Bipolar, Depression, PTSD, Schizoaffective Disorder, Schizophrenia Smoking Status: Current every day smoker Past Alcohol Use History: None Reported Past Drug Use History: Marijuana - Past Family History Mother Family Medical History: CVA/TIA, Diabetes Mellitus, Myocardial Infarction ([place]) Father Additional Family Medical History / Comment(s): Emphesema General Exam Limitations: no limitations General appearance: alert, in no apparent distress Head exam: Present: atraumatic, normocephalic Eye exam: Present: normal appearance. Absent: scleral icterus, conjunctival injection Neck exam: Present: normal inspection Respiratory exam: Present: normal lung sounds bilaterally. Absent: respiratory distress, wheezes, rales, rhonchi, stridor, chest wall tenderness Cardiovascular Exam: Present: regular rate, normal rhythm, normal heart sounds. Absent: systolic murmur, diastolic murmur, rubs, gallop GI/Abdominal exam: Present: soft. Absent: distended, tenderness, guarding, rebound, rigid Extremities exam: Present: normal inspection, normal capillary refill. Absent: pedal edema Back exam: Present: normal inspection. Absent: CVA tenderness (R), CVA tenderness (L) Neurological exam: Present: alert Skin exam: Present: warm, dry, intact, normal color. Absent: rash Course Vital Signs 01/30/22 01/31/22 21:26 04:15 Temperature 97.8 F Pulse Rate 98 86 Respiratory 18 18 Rate Blood Pressure 129/79 110/75 O2 Sat by Pulse 100 99 Oximetry Disposition Clinical Impression: Chest pain Disposition: HOME SELF-CARE Condition: Good Instructions (If sedation given, give patient instructions): Chest Pain (ED) Is patient prescribed a controlled substance at d/c from ED?: No Referrals: Flash Schofield MD [Primary Care Provider] - 1-2 days
[2022-01-31 04:16] VITALS: BP 110/75; PULSE 86
== END 2022-01-31 04:17 | disposition home or self-care (01) ==
LOC: EC 21:24
DX: R07.89 Other chest pain (principal); J44.9 Chronic obstructive pulmonary disease, unspecified; F41.9 Anxiety disorder, unspecified; F25.9 Schizoaffective disorder, unspecified; F31.9 Bipolar disorder, unspecified; F17.200 Nicotine dependence, unspecified, uncomplicated; F12.90 Cannabis use, unspecified, uncomplicated; Z79.51 Long term (current) use of inhaled steroids; Z79.899 Other long term (current) drug therapy; Z86.73 Personal history of transient ischemic attack (TIA), and cerebral infarction without residual deficits
CPT/HCPCS: 36415; 71046; 80048; 83735; 84484; 85025; 93005; 99285

== ENCOUNTER 2022-02-21 03:05 | Emergency (ER) | payer OTHER ==
[2022-02-21 03:26] VITALS: PULSE 88; TEMP 98
[2022-02-21 07:05] VITALS: BP 142/84; RESP 18
--- NOTE | 2022-03-20 19:03 | ED ---
General Adult HPI - General Chief complaint: Extremity Injury, Upper Stated complaint: right arm numbness Time Seen by Provider: 02/21/22 03:40 Source: patient Mode of arrival: ambulatory - History of Present Illness Initial comments: Please note this is a redictation, the original appears to have been lost This patient is 51-year-old man who presents to have evaluation of hand and shoulder pain as well as check of his nails. Patient describes intermittent aches throughout his shoulder and also his hand. No recent trauma. No erythema or warmth. No fever or chills patient denies other symptoms of infection. -: days(s) Location: upper extremity, lower extremity Radiation: non-radiation Quality: aching Consistency: intermittent, now resolved Improves with: none Worsens with: movement Associated Symptoms: denies other symptoms Treatments Prior to Arrival: none - Related Data Home Medications Medication Instructions Recorded Confirmed Ipratropium [place] [Atrovent Hfa] 2 puff INHALATION RT-QID PRN 08/02/21 11/04/21 Albuterol Sulfate [Proair Hfa] 2 puff INHALATION RT-Q4H PRN 09/27/21 11/04/21 Ergocalciferol [Vitamin D2 (1250 1,250 mcg PO QMONTHLY 11/04/21 11/04/21 Mcg = 64549 Iu)] Mirtazapine [Remeron] 30 mg PO HS 11/04/21 11/04/21 PARoxetine [Paxil] 20 mg PO DAILY 11/04/21 11/04/21 QUEtiapine FUMARATE [SEROquel] 25 mg PO HS 11/04/21 11/04/21 Allergies Allergy/AdvReac Type Severity Reaction Status Date / Time bee venom protein (honey bee) Allergy Anaphylaxis Verified 03/20/22 02:53 horseradish Allergy Anaphylaxis Verified 03/20/22 02:53 venom-wasp Allergy Anaphylaxis Verified 03/20/22 02:53 Review of Systems ROS Statement: Those systems with pertinent positive or pertinent negative responses have been documented in the HPI. ROS Other: All systems not noted in ROS Statement are negative. 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 Past Anesthesia/Blood Transfusion Reactions: No Reported Reaction Additional Past Anesthesia/Blood Transfusion Reaction / Comment(s): Pt has never had general/spinal anesthesia Past Psychological History: Anxiety, Bipolar, Depression, PTSD, Schizoaffective Disorder, Schizophrenia Smoking Status: Current every day smoker Past Alcohol Use History: None Reported Past Drug Use History: Marijuana - Past Family History Mother Family Medical History: CVA/TIA, Diabetes Mellitus, Myocardial Infarction ([place]) Father Additional Family Medical History / Comment(s): [place] General Exam General appearance: alert, in no apparent distress Head exam: Present: atraumatic, normocephalic Eye exam: Present: normal appearance. Absent: scleral icterus, conjunctival injection Respiratory exam: Present: normal lung sounds bilaterally. Absent: respiratory distress, wheezes, rales, rhonchi, stridor Cardiovascular Exam: Present: regular rate, normal rhythm, normal heart sounds. Absent: systolic murmur, diastolic murmur, rubs, gallop GI/Abdominal exam: Present: soft. Absent: tenderness Extremities exam: Present: normal inspection, full ROM, normal capillary refill. Absent: tenderness, pedal edema, joint swelling Right Shoulder Exam: Present: full ROM. Absent: swelling, abrasion Upper Arm exam: Present: normal inspection, full ROM. Absent: tenderness, swelling Elbow exam: Present: normal inspection, full ROM. Absent: tenderness, swelling Forearm Wrist exam: Present: normal inspection, full ROM. Absent: tenderness, swelling Hand Wrist exam: Present: normal inspection, full ROM, tenderness. Absent: swelling, abrasion Neuro motor exam: Present: wrist extension intact, thumb opposition intact Vascular: Present: normal capillary refill. Absent: vascular compromise, pulse deficit radial art, pulse deficit ulnar art, pulse deficit brachial art Back exam: Present: normal inspection. Absent: vertebral tenderness Neurological exam: Present: alert Skin exam: Present: warm, dry, intact, normal color. Absent: rash Course Vital Signs 02/21/22 02/21/22 03:21 07:03 Temperature 98 F Pulse Rate 88 88 Respiratory 19 18 Rate Blood Pressure 120/70 142/84 O2 Sat by Pulse 98 96 Oximetry Medical Decision Making - Medical Decision Making History and physical exam consistent with component of arthritic change. Discussed appropriate further care and follow-up with patient. Disposition Clinical Impression: Arthralgia Disposition: HOME SELF-CARE Instructions (If sedation given, give patient instructions): Wrist Injury (ED) Is patient prescribed a controlled substance at d/c from ED?: No Referrals: Flash Schofield MD [Primary Care Provider] - 1-2 days
== END 2022-02-21 07:17 | disposition home or self-care (01) ==
LOC: EC 03:05
DX: M25.511 Pain in right shoulder (principal); R20.2 Paresthesia of skin; F17.200 Nicotine dependence, unspecified, uncomplicated; J44.9 Chronic obstructive pulmonary disease, unspecified; Z91.030 Bee allergy status; Z91.013 Allergy to seafood
CPT/HCPCS: 99283

== ENCOUNTER 2022-02-26 21:24 | Emergency (ER) | payer OTHER ==
[2022-02-26 21:38] VITALS: RESP 18; TEMP 97.9
--- NOTE | 2022-02-27 01:59 | ED ---
Weakness HPI - General Chief complaint: Upper Respiratory Infection Stated complaint: SOB/Numbness in R hand Time Seen by Provider: 02/27/22 01:42 Source: patient, RN notes reviewed, old records reviewed Mode of arrival: ambulatory Limitations: no limitations - History of Present Illness Initial comments: This is a 52-year-old male well-known to our emergency department. Patient is homeless, complaining of numbness and tingling of the hands. Patient is again home with lives in the street and has been cold. Patient does get frostbite of his hands but no current episodes of frustrated currently temperatures are in the mid 40s outside. Patient has no other complaints of travel show sick contacts. Patient is asking for a sandwich in a nap MD Complaint: generalized weakness -: days(s) Location: generalized Severity: moderate Severity scale (1-10): 5 Quality: numbness Consistency: constant Improves with: none Worsens with: none Context: history of similar Associated Symptoms: denies other symptoms - Related Data Home Medications Medication Instructions Recorded Confirmed Ipratropium [place] [Atrovent Hfa] 2 puff INHALATION RT-QID PRN 08/02/21 11/04/21 Albuterol Sulfate [Proair Hfa] 2 puff INHALATION RT-Q4H PRN 09/27/21 11/04/21 Ergocalciferol [Vitamin D2 (1250 1,250 mcg PO QMONTHLY 11/04/21 11/04/21 Mcg = 33317 Iu)] Mirtazapine [Remeron] 30 mg PO HS 11/04/21 11/04/21 PARoxetine [Paxil] 20 mg PO DAILY 11/04/21 11/04/21 QUEtiapine FUMARATE [SEROquel] 25 mg PO HS 11/04/21 11/04/21 Allergies Allergy/AdvReac Type Severity Reaction Status Date / Time bee venom protein (honey bee) Allergy Anaphylaxis Verified 02/26/22 21:37 horseradish Allergy Anaphylaxis Verified 02/26/22 21:37 venom-wasp Allergy Anaphylaxis Verified 02/26/22 21:37 Review of Systems ROS Statement: Those systems with pertinent positive or pertinent negative responses have been documented in the HPI. ROS Other: All systems not noted in ROS Statement are negative. 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 Past Anesthesia/Blood Transfusion Reactions: No Reported Reaction Additional Past Anesthesia/Blood Transfusion Reaction / Comment(s): Pt has never had general/spinal anesthesia Past Psychological History: Anxiety, Bipolar, Depression, PTSD, Schizoaffective Disorder, Schizophrenia Smoking Status: Current every day smoker Past Alcohol Use History: None Reported Past Drug Use History: Marijuana - Past Family History Mother Family Medical History: CVA/TIA, Diabetes Mellitus, Myocardial Infarction ([place]) Father Additional Family Medical History / Comment(s): Emphesema General Exam Limitations: no limitations General appearance: alert, in no apparent distress Head exam: Present: atraumatic, normocephalic, normal inspection Eye exam: Present: normal appearance, PERRL, EOMI. Absent: scleral icterus, conjunctival injection, periorbital swelling ENT exam: Present: normal exam, mucous membranes moist Neck exam: Present: normal inspection. Absent: tenderness, meningismus, lymphadenopathy Respiratory exam: Present: normal lung sounds bilaterally. Absent: respiratory distress, wheezes, rales, rhonchi, stridor Cardiovascular Exam: Present: regular rate, normal rhythm, normal heart sounds. Absent: systolic murmur, diastolic murmur, rubs, gallop, clicks GI/Abdominal exam: Present: soft, normal bowel sounds. Absent: distended, tenderness, guarding, rebound, rigid Extremities exam: Present: normal inspection, full ROM, normal capillary refill. Absent: tenderness, pedal edema, joint swelling, calf tenderness Back exam: Present: normal inspection Neurological exam: Present: alert, oriented X3, CN II-XII intact Psychiatric exam: Present: normal affect, normal mood Skin exam: Present: warm, dry, intact, normal color. Absent: rash Course Vital Signs 02/26/22 21:35 Temperature 97.9 F Pulse Rate 83 Respiratory 18 Rate Blood Pressure 124/83 O2 Sat by Pulse 94 L Oximetry - Reevaluation(s) Reevaluation #1: 02/27/22 01:58 Medical record is reviewed Reevaluation #2: 02/27/22 01:58 Source patient regarding plan of care, he is agreeable Reevaluation #3: 02/27/22 01:58 Patient has no significant findings are distress can be discharged home Medical Decision Making - Medical Decision Making 49 female known to emergency department for homelessness, patient is hungry, given sandwich in fluid here in the emergency department discharged home Disposition Clinical Impression: Normal exam Disposition: HOME SELF-CARE Condition: Fair Instructions (If sedation given, give patient instructions): Normal Exam (ED) Is patient prescribed a controlled substance at d/c from ED?: No Referrals: Flash Schofield MD [Primary Care Provider] - 1-2 days
[2022-02-27 03:16] VITALS: BP 114/72; PULSE 65
== END 2022-02-27 03:16 | disposition home or self-care (01) ==
LOC: EC 21:24
DX: R20.0 Anesthesia of skin (principal); R20.2 Paresthesia of skin; F17.200 Nicotine dependence, unspecified, uncomplicated; I25.2 Old myocardial infarction; J44.9 Chronic obstructive pulmonary disease, unspecified; Z59.00 Homelessness unspecified; Z91.030 Bee allergy status; Z91.018 Allergy to other foods
CPT/HCPCS: 99283

== ENCOUNTER 2022-03-14 03:12 | Emergency (ER) | payer OTHER ==
[2022-03-14 03:18] VITALS: RESP 18; TEMP 97.6
--- NOTE | 2022-03-14 07:53 | ED ---
Psych HPI - General Chief Complaint: Psychiatric Symptoms Stated Complaint: Mental Health Time Seen by Provider: 03/14/22 07:30 Source: patient, RN notes reviewed Mode of arrival: ambulatory - History of Present Illness Initial Comments: 52-year-old male who presents with complaints of feeling somewhat depressed and homicidal. He states he recently lost a friend [place] several days ago also he got kicked out of the residence she was living at he states he has had thoughts of killing that personally kicked about the house. He was seen earlier in triage today and now voices THESE concerns she had had earlier. Initially he just wants somewhere to stay until morning.. Complaint: other - Related Data Home Medications Medication Instructions Recorded Confirmed Ipratropium [place] [Atrovent Hfa] 2 puff INHALATION RT-QID PRN 08/02/21 11/04/21 Albuterol Sulfate [Proair Hfa] 2 puff INHALATION RT-Q4H PRN 09/27/21 11/04/21 Ergocalciferol [Vitamin D2 (1250 1,250 mcg PO QMONTHLY 11/04/21 11/04/21 Mcg = 26271 Iu)] Mirtazapine [Remeron] 30 mg PO HS 11/04/21 11/04/21 PARoxetine [Paxil] 20 mg PO DAILY 11/04/21 11/04/21 QUEtiapine FUMARATE [SEROquel] 25 mg PO HS 11/04/21 11/04/21 Allergies Allergy/AdvReac Type Severity Reaction Status Date / Time bee venom protein (honey bee) Allergy Anaphylaxis Verified 03/14/22 03:18 horseradish Allergy Anaphylaxis Verified 03/14/22 03:18 venom-wasp Allergy Anaphylaxis Verified 03/14/22 03:18 Review of Systems ROS Statement: Those systems with pertinent positive or pertinent negative responses have been documented in the HPI. ROS Other: All systems not noted in ROS Statement are negative. 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 Past Anesthesia/Blood Transfusion Reactions: No Reported Reaction Additional Past Anesthesia/Blood Transfusion Reaction / Comment(s): Pt has never had general/spinal anesthesia Past Psychological History: Anxiety, Bipolar, Depression, PTSD, Schizoaffective Disorder, Schizophrenia Smoking Status: Current every day smoker Past Alcohol Use History: None Reported Past Drug Use History: Marijuana - Past Family History Mother Family Medical History: CVA/TIA, Diabetes Mellitus, Myocardial Infarction ([place]) Father Additional Family Medical History / Comment(s): Emphesema General Exam - General Exam Comments Initial Comments: This is a well-developed well-nourished awake alert oriented times 3 male Limitations: no limitations General appearance: alert, in no apparent distress Head exam: Present: atraumatic, normocephalic, normal inspection Eye exam: Present: normal appearance, PERRL, EOMI. Absent: scleral icterus, c onjunctival injection, periorbital swelling ENT exam: Present: normal exam, mucous membranes moist Neck exam: Present: normal inspection. Absent: tenderness, meningismus, lymphadenopathy Respiratory exam: Present: normal lung sounds bilaterally. Absent: respiratory distress, wheezes, rales, rhonchi, stridor Cardiovascular Exam: Present: regular rate, normal rhythm, normal heart sounds. Absent: systolic murmur, diastolic murmur, rubs, gallop, clicks GI/Abdominal exam: Present: soft. Absent: distended, tenderness, guarding, rebound, rigid Extremities exam: Present: normal inspection, full ROM, normal capillary refill. Absent: tenderness, pedal edema, joint swelling, calf tenderness Back exam: Present: normal inspection Neurological exam: Present: alert, oriented X3, CN II-XII intact Psychiatric exam: Present: depressed, flat affect Skin exam: Present: warm, dry, intact, normal color. Absent: rash Course Vital Signs 03/14/22 03/14/22 03:16 08:00 Temperature 97.6 F Pulse Rate 75 69 Respiratory 18 18 Rate Blood Pressure 120/82 128/89 O2 Sat by Pulse 100 95 Oximetry Medical Decision Making - Medical Decision Making The patient was evaluated by the EPS service and found to be a risk to himself or anyone else at this time he'll be discharged with outpatient Disposition Clinical Impression: Adjustment reaction of adult life Disposition: HOME SELF-CARE Condition: Good Instructions (If sedation given, give patient instructions): Mood Disorders (ED) Is patient prescribed a controlled substance at d/c from ED?: No Referrals: Flash Schofield MD [Primary Care Provider] - 1-2 days Decision Date: 03/14/22 Decision Time: 11:48
[2022-03-14 08:22] VITALS: BP 128/89; PULSE 69
== END 2022-03-14 11:50 | disposition home or self-care (01) ==
LOC: EC 03:12
DX: F43.22 Adjustment disorder with anxiety (principal); J44.9 Chronic obstructive pulmonary disease, unspecified; Z86.73 Personal history of transient ischemic attack (TIA), and cerebral infarction without residual deficits; F17.200 Nicotine dependence, unspecified, uncomplicated; Z82.49 Family history of ischemic heart disease and other diseases of the circulatory system; Z91.030 Bee allergy status; Z91.018 Allergy to other foods
CPT/HCPCS: 82075; 99284

== ENCOUNTER 2022-03-15 01:14 | Emergency (ER) | payer OTHER ==
--- NOTE | 2022-03-15 06:01 | ED ---
Weakness HPI - General Stated complaint: Migraine, Dental Pain Time Seen by Provider: 03/15/22 01:47 Source: RN notes reviewed, old records reviewed Limitations: no limitations - History of Present Illness Initial comments: This is a 52-year-old male to the emergency department for evaluation is well- known to our ER is been seen in multiple days. Patient is homeless comes in the ER usually for food. Complaining of some dental pain today not homicidal or suicidal denies drugs or alcohol. MD Complaint: generalized weakness, lack of energy -: minutes(s) Location: generalized Severity: moderate Severity scale (1-10): 4 Improves with: none Worsens with: none Context: recent illness Associated Symptoms: denies other symptoms - Related Data Home Medications Medication Instructions Recorded Confirmed Ipratropium [place] [Atrovent Hfa] 2 puff INHALATION RT-QID PRN 08/02/21 11/04/21 Albuterol Sulfate [Proair Hfa] 2 puff INHALATION RT-Q4H PRN 09/27/21 11/04/21 Ergocalciferol [Vitamin D2 (1250 1,250 mcg PO QMONTHLY 11/04/21 11/04/21 Mcg = 22179 Iu)] Mirtazapine [Remeron] 30 mg PO HS 11/04/21 11/04/21 PARoxetine [Paxil] 20 mg PO DAILY 11/04/21 11/04/21 QUEtiapine FUMARATE [SEROquel] 25 mg PO HS 11/04/21 11/04/21 Allergies Allergy/AdvReac Type Severity Reaction Status Date / Time bee venom protein (honey bee) Allergy Anaphylaxis Verified 03/14/22 03:18 horseradish Allergy Anaphylaxis Verified 03/14/22 03:18 venom-wasp Allergy Anaphylaxis Verified 03/14/22 03:18 Review of Systems ROS Statement: Those systems with pertinent positive or pertinent negative responses have been documented in the HPI. ROS Other: All systems not noted in ROS Statement are negative. 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 Past Anesthesia/Blood Transfusion Reactions: No Reported Reaction Additional Past Anesthesia/Blood Transfusion Reaction / Comment(s): Pt has never had general/spinal anesthesia Past Psychological History: Anxiety, Bipolar, Depression, PTSD, Schizoaffective Disorder, Schizophrenia Smoking Status: Current every day smoker Past Alcohol Use History: None Reported Past Drug Use History: Marijuana - Past Family History Mother Family Medical History: CVA/TIA, Diabetes Mellitus, Myocardial Infarction ([place]) Father Additional Family Medical History / Comment(s): [place] General Exam General appearance: alert, in no apparent distress Head exam: Present: atraumatic, normocephalic, normal inspection Eye exam: Present: normal appearance, PERRL, EOMI. Absent: scleral icterus, conjunctival injection, periorbital swelling ENT exam: Present: normal exam, mucous membranes moist Neck exam: Present: normal inspection. Absent: tenderness, meningismus, lymphadenopathy Respiratory exam: Present: normal lung sounds bilaterally. Absent: respiratory distress, wheezes, rales, rhonchi, stridor Cardiovascular Exam: Present: regular rate, normal rhythm, normal heart sounds. Absent: systolic murmur, diastolic murmur, rubs, gallop, clicks GI/Abdominal exam: Present: soft, normal bowel sounds. Absent: distended, tenderness, guarding, rebound, rigid Extremities exam: Present: normal inspection, full ROM, normal capillary refill. Absent: tenderness, pedal edema, joint swelling, calf tenderness Back exam: Present: normal inspection Neurological exam: Present: alert, oriented X3, CN II-XII intact Psychiatric exam: Present: normal affect, normal mood Skin exam: Present: warm, dry, intact, normal color. Absent: rash Course - Reevaluation(s) Reevaluation #1: 03/15/22 06:00 Medical record is reviewed Reevaluation #2: 03/15/22 06:00 Patient informed of results and questions answered Reevaluation #3: 03/15/22 06:00 Patient can be discharged home Medical Decision Making - Medical Decision Making 52 male to the emergency department for evaluation patient presents today for evaluation of some dental pain. No abnormal findings on dental exam. Patient can be discharged home he did get a good 4 hour nap while Here in the ER Disposition Clinical Impression: Normal exam, Homelessness Disposition: HOME SELF-CARE Condition: Fair Instructions (If sedation given, give patient instructions): Normal Exam (ED) Is patient prescribed a controlled substance at d/c from ED?: No Referrals: Flash Schofield MD [Primary Care Provider] - 1-2 days
[2022-03-15 06:05] VITALS: BP 112/79; PULSE 67; RESP 18; TEMP 97.5
== END 2022-03-15 06:58 | disposition home or self-care (01) ==
LOC: EC 01:14
DX: Z00.00 Encounter for general adult medical examination without abnormal findings (principal); Z59.00 Homelessness unspecified; J44.9 Chronic obstructive pulmonary disease, unspecified; Z86.73 Personal history of transient ischemic attack (TIA), and cerebral infarction without residual deficits; F41.9 Anxiety disorder, unspecified; F31.9 Bipolar disorder, unspecified; F17.200 Nicotine dependence, unspecified, uncomplicated; F43.10 Post-traumatic stress disorder, unspecified; F25.9 Schizoaffective disorder, unspecified; I25.2 Old myocardial infarction; Z91.030 Bee allergy status; Z91.038 Other insect allergy status; Z91.018 Allergy to other foods
CPT/HCPCS: 99282

== ENCOUNTER 2022-03-20 02:52 | Emergency (ER) | payer OTHER ==
[2022-03-20 02:56] VITALS: BP 121/73
[2022-03-20 06:35] VITALS: PULSE 68; RESP 18; TEMP 97.6
[2022-03-20] MEDS ORDERED: IBUPROFEN 600 MG TAB PO STA (06:38)
[2022-03-20] MEDS ORDERED: ACETAMINOPHEN TAB 325 MG TAB PO STA (06:38)
--- NOTE | 2022-03-20 06:39 | ED ---
General Adult HPI - General Chief complaint: Headache Stated complaint: Headache Time Seen by Provider: 03/20/22 06:03 Source: patient, RN notes reviewed Mode of arrival: ambulatory Limitations: no limitations - History of Present Illness Initial comments: This a 52-year-old male presents emergency Department with chief complaint headache. Patient states that headache is resolved. He states it's not severe states very mild headache. Patient states that he is currently homeless. Patient states he is related to not being able to sleep. Patient states his tachycardia resolving prior to my evaluation. Patient has been emergency from for 3 hours. denies any visual disturbances no focal weakness no chest pain. - Related Data Home Medications Medication Instructions Recorded Confirmed Ipratropium [place] [Atrovent Hfa] 2 puff INHALATION RT-QID PRN 08/02/21 11/04/21 Albuterol Sulfate [Proair Hfa] 2 puff INHALATION RT-Q4H PRN 09/27/21 11/04/21 Ergocalciferol [Vitamin D2 (1250 1,250 mcg PO QMONTHLY 11/04/21 11/04/21 Mcg = 58092 Iu)] Mirtazapine [Remeron] 30 mg PO HS 11/04/21 11/04/21 PARoxetine [Paxil] 20 mg PO DAILY 11/04/21 11/04/21 QUEtiapine FUMARATE [SEROquel] 25 mg PO HS 11/04/21 11/04/21 Allergies Allergy/AdvReac Type Severity Reaction Status Date / Time bee venom protein (honey bee) Allergy Anaphylaxis Verified 03/20/22 02:53 horseradish Allergy Anaphylaxis Verified 03/20/22 02:53 venom-wasp Allergy Anaphylaxis Verified 03/20/22 02:53 Review of Systems ROS Statement: Those systems with pertinent positive or pertinent negative responses have been documented in the HPI. ROS Other: All systems not noted in ROS Statement are negative. 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 Past Anesthesia/Blood Transfusion Reactions: No Reported Reaction Additional Past Anesthesia/Blood Transfusion Reaction / Comment(s): Pt has never had general/spinal anesthesia Past Psychological History: Anxiety, Bipolar, Depression, PTSD, Schizoaffective Disorder, Schizophrenia Smoking Status: Current every day smoker Past Alcohol Use History: None Reported Past Drug Use History: Marijuana - Past Family History Mother Family Medical History: CVA/TIA, Diabetes Mellitus, Myocardial Infarction ([place]) Father Additional Family Medical History / Comment(s): [place] General Exam Limitations: no limitations General appearance: alert, in no apparent distress Head exam: Present: atraumatic, normocephalic, normal inspection Eye exam: Present: normal appearance, PERRL, EOMI. Absent: scleral icterus, conjunctival injection, periorbital swelling ENT exam: Present: normal exam, mucous membranes moist Neck exam: Present: normal inspection, full ROM. Absent: tenderness, meningismus, lymphadenopathy Respiratory exam: Present: normal lung sounds bilaterally. Absent: respiratory distress, wheezes, rales, rhonchi, stridor Cardiovascular Exam: Present: regular rate, normal rhythm, normal heart sounds. Absent: systolic murmur, diastolic murmur, rubs, gallop, clicks Neurological exam: Present: alert, oriented X3, CN II-XII intact Course Vital Signs 03/20/22 03/20/22 02:54 06:33 Temperature 97.8 F 97.6 F Pulse Rate 69 68 Respiratory 16 18 Rate Blood Pressure 121/73 121/73 O2 Sat by Pulse 98 96 Oximetry Medical Decision Making - Medical Decision Making Patient's headache resolved primarily prior to my evaluation. Patient will be discharged in stable condition return parameters were discussed. Disposition Clinical Impression: Headache Disposition: HOME SELF-CARE Condition: Stable Instructions (If sedation given, give patient instructions): Acute Headache (ED) Additional Instructions: Please return to the Emergency Department if symptoms worsen or any other concerns. Is patient prescribed a controlled substance at d/c from ED?: No Referrals: Falsh Schofield MD [Primary Care Provider] - 1-2 days Time of Disposition: 06:39
== END 2022-03-20 07:30 | disposition home or self-care (01) ==
LOC: EC 02:52
DX: R51.9 Headache, unspecified (principal); J44.9 Chronic obstructive pulmonary disease, unspecified; Z86.73 Personal history of transient ischemic attack (TIA), and cerebral infarction without residual deficits; F17.200 Nicotine dependence, unspecified, uncomplicated; Z91.030 Bee allergy status; Z91.018 Allergy to other foods

== ENCOUNTER 2022-03-21 05:29 | Emergency (ER) | payer OTHER ==
[2022-03-21 05:37] VITALS: BP 117/79; PULSE 65; RESP 16; TEMP 98.3
--- NOTE | 2022-03-21 06:18 | ED ---
General Adult HPI - General Chief complaint: Headache Stated complaint: Headache Time Seen by Provider: 03/21/22 06:00 Source: patient, RN notes reviewed Mode of arrival: ambulatory Limitations: no limitations - History of Present Illness Initial comments: This is a 52-year-old male well-known to the emergency Department presents today for homelessness. Patient does complain headache but has resolved. Patient has no visual disturbances denies nausea vomiting fevers chills patient states she is just tired. Patient denies any complaints. - Related Data Home Medications Medication Instructions Recorded Confirmed Ipratropium [place] [Atrovent Hfa] 2 puff INHALATION RT-QID PRN 08/02/21 11/04/21 Albuterol Sulfate [Proair Hfa] 2 puff INHALATION RT-Q4H PRN 09/27/21 11/04/21 Ergocalciferol [Vitamin D2 (1250 1,250 mcg PO QMONTHLY 11/04/21 11/04/21 Mcg = 67611 Iu)] Mirtazapine [Remeron] 30 mg PO HS 11/04/21 11/04/21 PARoxetine [Paxil] 20 mg PO DAILY 11/04/21 11/04/21 QUEtiapine FUMARATE [SEROquel] 25 mg PO HS 11/04/21 11/04/21 Allergies Allergy/AdvReac Type Severity Reaction Status Date / Time bee venom protein (honey bee) Allergy Anaphylaxis Verified 03/21/22 05:33 horseradish Allergy Anaphylaxis Verified 03/21/22 05:33 venom-wasp Allergy Anaphylaxis Verified 03/21/22 05:33 Review of Systems ROS Statement: Those systems with pertinent positive or pertinent negative responses have been documented in the HPI. ROS Other: All systems not noted in ROS Statement are negative. 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 Past Anesthesia/Blood Transfusion Reactions: No Reported Reaction Additional Past Anesthesia/Blood Transfusion Reaction / Comment(s): Pt has never had general/spinal anesthesia Past Psychological History: Anxiety, Bipolar, Depression, PTSD, Schizoaffective Disorder, Schizophrenia Smoking Status: Current every day smoker Past Alcohol Use History: None Reported Past Drug Use History: Marijuana - Past Family History Mother Family Medical History: CVA/TIA, Diabetes Mellitus, Myocardial Infarction ([place]) Father Additional Family Medical History / Comment(s): [place] General Exam Limitations: no limitations General appearance: alert, in no apparent distress Head exam: Present: atraumatic, normocephalic, normal inspection Eye exam: Present: normal appearance, PERRL, EOMI. Absent: scleral icterus, conjunctival injection, periorbital swelling ENT exam: Present: normal exam, normal oropharynx, mucous membranes moist Neck exam: Present: normal inspection, full ROM. Absent: tenderness, meningismus, lymphadenopathy Respiratory exam: Present: normal lung sounds bilaterally. Absent: respiratory distress, wheezes, rales, rhonchi, stridor Cardiovascular Exam: Present: regular rate, normal rhythm, normal heart sounds. Absent: systolic murmur, diastolic murmur, rubs, gallop, clicks GI/Abdominal exam: Present: soft, normal bowel sounds. Absent: distended, tenderness, guarding, rebound, rigid Course Vital Signs 03/21/22 05:33 Temperature 98.3 F Pulse Rate 65 Respiratory 16 Rate Blood Pressure 117/79 O2 Sat by Pulse 100 Oximetry Medical Decision Making - Medical Decision Making Patient discharged in stable condition. Patient has resolved. Disposition Clinical Impression: Homelessness, Headache Disposition: HOME SELF-CARE Condition: Stable Instructions (If sedation given, give patient instructions): Acute Headache (ED) Additional Instructions: Please return to the Emergency Department if symptoms worsen or any other concerns. Is patient prescribed a controlled substance at d/c from ED?: No Referrals: Flash Schofield MD [Primary Care Provider] - 1-2 days Time of Disposition: 06:05
== END 2022-03-21 09:15 | disposition home or self-care (01) ==
LOC: EC 05:29
DX: R51.9 Headache, unspecified (principal); Z59.00 Homelessness unspecified; J44.9 Chronic obstructive pulmonary disease, unspecified; Z86.73 Personal history of transient ischemic attack (TIA), and cerebral infarction without residual deficits; F17.200 Nicotine dependence, unspecified, uncomplicated; Z91.030 Bee allergy status; Z91.018 Allergy to other foods

== ENCOUNTER 2022-03-23 01:32 | Emergency (ER) | payer OTHER ==
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
[2022-03-23 05:28] VITALS: BP 132/81; PULSE 78; RESP 16; TEMP 97.9
== END 2022-03-23 05:27 | disposition home or self-care (01) ==
LOC: EC 01:32
DX: F32.2 Major depressive disorder, single episode, severe without psychotic features (principal); J44.9 Chronic obstructive pulmonary disease, unspecified; Z86.73 Personal history of transient ischemic attack (TIA), and cerebral infarction without residual deficits; G43.909 Migraine, unspecified, not intractable, without status migrainosus; G40.909 Epilepsy, unspecified, not intractable, without status epilepticus; F25.9 Schizoaffective disorder, unspecified; F41.9 Anxiety disorder, unspecified; F43.10 Post-traumatic stress disorder, unspecified; F17.200 Nicotine dependence, unspecified, uncomplicated; Z79.51 Long term (current) use of inhaled steroids; Z91.030 Bee allergy status; F12.90 Cannabis use, unspecified, uncomplicated; Z91.038 Other insect allergy status; Z91.018 Allergy to other foods
CPT/HCPCS: 82075; 99284

== ENCOUNTER 2022-04-13 04:33 | Emergency (ER) | payer OTHER ==
[2022-04-13 04:40] VITALS: BP 110/68; TEMP 97.6
--- NOTE | 2022-04-13 04:57 | ED ---
Psych HPI - General Chief Complaint: Psychiatric Symptoms Stated Complaint: Mental health Time Seen by Provider: 04/13/22 04:56 Source: patient, RN notes reviewed, old records reviewed Mode of arrival: ambulatory Limitations: no limitations - History of Present Illness Initial Comments: This is a 52-year-old male well-known to our emergency department. Patient presents as home was up street for need usually for food is coming in today with psychiatric thoughts patient denies drugs or alcohol MD Complaint: suicidal ideation, feels depressed -: unknown Associated Psychiatric Symptoms: depression, suicidal ideation, racing thoughts History of same: Yes Quality: constant Improves With: none Worsens With: none Context: recent drug abuse, significant life stressor Treatments Prior to Arrival: placed on mental health hold If Self Harm: admits thoughts of self harm - Related Data Home Medications Medication Instructions Recorded Confirmed Ipratropium [place] [Atrovent Hfa] 2 puff INHALATION RT-QID PRN 08/02/21 11/04/21 Albuterol Sulfate [Proair Hfa] 2 puff INHALATION RT-Q4H PRN 09/27/21 11/04/21 Ergocalciferol [Vitamin D2 (1250 1,250 mcg PO QMONTHLY 11/04/21 11/04/21 Mcg = 03729 Iu)] Mirtazapine [Remeron] 30 mg PO HS 11/04/21 11/04/21 PARoxetine [Paxil] 20 mg PO DAILY 11/04/21 11/04/21 QUEtiapine FUMARATE [SEROquel] 25 mg PO HS 11/04/21 11/04/21 Allergies Allergy/AdvReac Type Severity Reaction Status Date / Time bee venom protein (honey bee) Allergy Anaphylaxis Verified 04/13/22 04:40 horseradish Allergy Anaphylaxis Verified 04/13/22 04:40 venom-wasp Allergy Anaphylaxis Verified 04/13/22 04:40 Review of Systems ROS Statement: Those systems with pertinent positive or pertinent negative responses have been documented in the HPI. ROS Other: All systems not noted in ROS Statement are negative. 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 Past Anesthesia/Blood Transfusion Reactions: No Reported Reaction Additional Past Anesthesia/Blood Transfusion Reaction / Comment(s): Pt has never had general/spinal anesthesia Past Psychological History: Anxiety, Bipolar, Depression, PTSD, Schizoaffective Disorder, Schizophrenia Smoking Status: Current every day smoker Past Alcohol Use History: None Reported Past Drug Use History: Marijuana - Past Family History Mother Family Medical History: CVA/TIA, Diabetes Mellitus, Myocardial Infarction ([place]) Father Additional Family Medical History / Comment(s): Emphesema General Exam Limitations: no limitations General appearance: alert, in no apparent distress Head exam: Present: atraumatic, normocephalic, normal inspection Eye exam: Present: normal appearance, PERRL, EOMI. Absent: scleral icterus, conjunctival injection, periorbital swelling ENT exam: Present: normal exam, mucous membranes moist Neck exam: Present: normal inspection. Absent: tenderness, meningismus, lymphadenopathy Respiratory exam: Present: normal lung sounds bilaterally. Absent: respiratory distress, wheezes, rales, rhonchi, stridor Cardiovascular Exam: Present: regular rate, normal rhythm, normal heart sounds. Absent: systolic murmur, diastolic murmur, rubs, gallop, clicks GI/Abdominal exam: Present: soft, normal bowel sounds. Absent: distended, tenderness, guarding, rebound, rigid Extremities exam: Present: normal inspection, full ROM, normal capillary refill. Absent: tenderness, pedal edema, joint swelling, calf tenderness Back exam: Present: normal inspection Neurological exam: Present: alert, oriented X3, CN II-XII intact Psychiatric exam: Present: normal affect, normal mood Skin exam: Present: warm, dry, intact, normal color. Absent: rash Course Vital Signs 04/13/22 04/13/22 04:35 07:22 Temperature 97.6 F Pulse Rate 72 70 Respiratory 20 16 Rate Blood Pressure 110/68 O2 Sat by Pulse 98 99 Oximetry - Reevaluation(s) Reevaluation #1: 04/13/22 Medical record is reviewed Medical clear for psychiatric evaluation Medical Decision Making - Medical Decision Making 52 male seen and evaluated by psychiatry here in the ER. Patient is normal and stable for discharge Disposition Clinical Impression: Mood disorder, Homelessness, Depression Disposition: HOME SELF-CARE Condition: Fair Instructions (If sedation given, give patient instructions): Mood Disorders (ED) Is patient prescribed a controlled substance at d/c from ED?: No Referrals: Flash Schofield MD [Primary Care Provider] - 1-2 days
[2022-04-13 07:24] VITALS: PULSE 70; RESP 16
== END 2022-04-13 07:23 | disposition home or self-care (01) ==
LOC: EC 04:33
DX: F39 Unspecified mood [affective] disorder (principal); F32.A Depression, unspecified; Z59.00 Homelessness unspecified; J44.9 Chronic obstructive pulmonary disease, unspecified; Z86.73 Personal history of transient ischemic attack (TIA), and cerebral infarction without residual deficits; F17.200 Nicotine dependence, unspecified, uncomplicated; Z91.030 Bee allergy status; Z91.048 Other nonmedicinal substance allergy status
CPT/HCPCS: 82075

== ENCOUNTER 2022-05-30 22:52 | Emergency (ER) | payer OTHER ==
[2022-05-30 23:11] VITALS: BP 108/69; PULSE 62; RESP 18; TEMP 97.9
--- NOTE | 2022-05-30 23:49 | ED ---
General Adult HPI - General Chief complaint: Psychiatric Symptoms Stated complaint: Mental Health Time Seen by Provider: 05/30/22 23:37 Source: patient Mode of arrival: ambulatory - History of Present Illness Initial comments: Dictation was produced using [employer] dictation software. please excuse any grammatical, word or spelling errors. Chief Complaint: 52-year-old male presents to the emergency department for depression History of Present Illness: Patient is 52-year-old male presents emergency department for depression. Patient states that he denies any suicidal ideation but he does complain of homicidal ideation. Patient has any visual or auditory hallucinations. Denies any medical complaints. The ROS documented in this emergency department record has been reviewed and confirmed by me. Those systems with pertinent positive or negative responses have been documented in the HPI. All other systems are other negative and/or noncontributory. PHYSICAL EXAM: General Impression: Alert and oriented x3, not in acute distress HEENT: Normocephalic atraumatic, extra-ocular movements intact, pupils equal and reactive to light bilaterally, mucous membranes moist. Cardiovascular: Heart regular rate and rhythm Chest: Able to complete full sentences, no retractions, no tachypnea Abdomen: abdomen soft, non-tender, non-distended, no organomegaly Musculoskeletal: Pulses present and equal in all extremities, no peripheral edema Motor: no focal deficits noted Neurological: CN II-XII grossly intact, no focal motor or sensory deficits noted Skin: Intact with no visualized rashes Psych: Normal affect and mood ED course: 52-year-old male presents to the ER psychiatric evaluation. Patient states that he is feeling a little homicidal and suicidal. Patient is well- appearing not agitated. Vital signs are stable. Physical examination is benign. Patient medically cleared for EPS evaluation. Patient evaluated by EPS and will be discharged. - Related Data Home Medications Medication Instructions Recorded Confirmed Ipratropium [place] [Atrovent Hfa] 2 puff INHALATION RT-QID PRN 08/02/2110/14 Albuterol Sulfate [Proair Hfa] 2 puff INHALATION RT-Q4H PRN 09/27/21 11/04/21 Ergocalciferol [Vitamin D2 (1250 1,250 mcg PO QMONTHLY 11/04/21 11/04/21 Mcg = 01749 Iu)] Mirtazapine [Remeron] 30 mg PO HS 11/04/21 11/04/21 PARoxetine [Paxil] 20 mg PO DAILY 11/04/21 11/04/21 QUEtiapine FUMARATE [SEROquel] 25 mg PO HS 11/04/21 11/04/21 Allergies Allergy/AdvReac Type Severity Reaction Status Date / Time bee venom protein (honey bee) Allergy Anaphylaxis Verified 05/30/22 23:12 horseradish Allergy Anaphylaxis Verified 05/30/22 23:12 venom-wasp Allergy Anaphylaxis Verified 05/30/22 23:12 Review of Systems ROS Statement: Those systems with pertinent positive or pertinent negative responses have been documented in the HPI. ROS Other: All systems not noted in ROS Statement are negative. 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 Past Anesthesia/Blood Transfusion Reactions: No Reported Reaction Additional Past Anesthesia/Blood Transfusion Reaction / Comment(s): Pt has never had general/spinal anesthesia Past Psychological History: Anxiety, Bipolar, Depression, PTSD, Schizoaffective Disorder, Schizophrenia Smoking Status: Current every day smoker Past Alcohol Use History: None Reported Past Drug Use History: Marijuana - Past Family History Mother Family Medical History: CVA/TIA, Diabetes Mellitus, Myocardial Infarction ([place]) Father Additional Family Medical History / Comment(s): Emphesema Course Vital Signs 05/30/22 23:10 Temperature 97.9 F Pulse Rate 62 Respiratory 18 Rate Blood Pressure 108/69 O2 Sat by Pulse 99 Oximetry Disposition Clinical Impression: Depression Disposition: HOME SELF-CARE Condition: Good Instructions (If sedation given, give patient instructions): Depression (ED) Is patient prescribed a controlled substance at d/c from ED?: No Referrals: Flash Schofield MD [Primary Care Provider] - 1-2 days Time of Disposition: 02:29
== END 2022-05-31 03:01 | disposition home or self-care (01) ==
LOC: EC 22:52
DX: F32.A Depression, unspecified (principal); R45.850 Homicidal ideations; F17.200 Nicotine dependence, unspecified, uncomplicated; J45.909 Unspecified asthma, uncomplicated; I25.2 Old myocardial infarction; Z86.73 Personal history of transient ischemic attack (TIA), and cerebral infarction without residual deficits; Z59.00 Homelessness unspecified; Z91.030 Bee allergy status; Z91.013 Allergy to seafood; Z79.899 Other long term (current) drug therapy
CPT/HCPCS: 82075; 99284

== ENCOUNTER 2022-06-05 04:47 | Emergency (ER) | payer OTHER ==
[2022-06-05 05:00] VITALS: BP 127/80; PULSE 94; RESP 22; TEMP 98.2
--- NOTE | 2022-06-05 05:44 | ED ---
Psych HPI - General Source: patient, RN notes reviewed, old records reviewed Mode of arrival: ambulatory Limitations: no limitations - History of Present Illness MD Complaint: suicidal ideation, feels depressed Quality: constant Improves With: none Worsens With: none Context: not taking psychiatric medications Associated Symptoms: denies other symptoms Treatments Prior to Arrival: placed on mental health hold If Self Harm: admits thoughts of self harm <Zenon Bee - Last Filed: 06/05/22 07:06> <Zenon Goff - Last Filed: 06/05/22 14:29> - General Chief Complaint: Psychiatric Symptoms Stated Complaint: Mental Health Time Seen by Provider: 06/05/22 05:35 - Related Data Home Medications Medication Instructions Recorded Confirmed Ipratropium [place] [Atrovent Hfa] 2 puff INHALATION RT-QID PRN 08/02/21 11/04/21 Albuterol Sulfate [Proair Hfa] 2 puff INHALATION RT-Q4H PRN 09/27/21 11/04/21 Ergocalciferol [Vitamin D2 (1250 1,250 mcg PO QMONTHLY 11/04/21 11/04/21 Mcg = 71074 Iu)] Mirtazapine [Remeron] 30 mg PO HS 11/04/21 11/04/21 PARoxetine [Paxil] 20 mg PO DAILY 11/04/21 11/04/21 QUEtiapine FUMARATE [SEROquel] 25 mg PO HS 11/04/21 11/04/21 Allergies Allergy/AdvReac Type Severity Reaction Status Date / Time bee venom protein (honey bee) Allergy Anaphylaxis Verified 06/05/22 05:00 horseradish Allergy Anaphylaxis Verified 06/05/22 05:00 venom-wasp Allergy Anaphylaxis Verified 06/05/22 05:00 Review of Systems ROS Other: All systems not noted in ROS Statement are negative. <Zenon Bee - Last Filed: 06/05/22 07:06> ROS Other: All systems not noted in ROS Statement are negative. <Zenon Goff - Last Filed: 06/05/22 14:29> ROS Statement: Those systems with pertinent positive or pertinent negative responses have been documented in the HPI. 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 Past Anesthesia/Blood Transfusion Reactions: No Reported Reaction Additional Past Anesthesia/Blood Transfusion Reaction / Comment(s): Pt has never had general/spinal anesthesia Past Psychological History: Anxiety, Bipolar, Depression, PTSD, Schizoaffective Disorder, Schizophrenia Smoking Status: Current every day smoker Past Alcohol Use History: Occasional Past Drug Use History: Marijuana - Past Family History Mother Family Medical History: CVA/TIA, Diabetes Mellitus, Myocardial Infarction ([place]) Father Additional Family Medical History / Comment(s): Emphesema <Zenon Bee - Last Filed: 06/05/22 07:06> General Exam Limitations: no limitations General appearance: alert, in no apparent distress Head exam: Present: atraumatic, normocephalic, normal inspection Eye exam: Present: normal appearance, PERRL, EOMI. Absent: scleral icterus, conjunctival injection, periorbital swelling ENT exam: Present: normal exam, mucous membranes moist Neck exam: Present: normal inspection. Absent: tenderness, meningismus, lymphadenopathy Respiratory exam: Present: normal lung sounds bilaterally. Absent: respiratory distress, wheezes, rales, rhonchi, stridor Cardiovascular Exam: Present: regular rate, normal rhythm, normal heart sounds. Absent: systolic murmur, diastolic murmur, rubs, gallop, clicks GI/Abdominal exam: Present: soft, normal bowel sounds. Absent: distended, tenderness, guarding, rebound, rigid Extremities exam: Present: normal inspection, full ROM, normal capillary refill. Absent: tenderness, pedal edema, joint swelling, calf tenderness Back exam: Present: normal inspection Neurological exam: Present: alert, oriented X3, CN II-XII intact Psychiatric exam: Present: normal affect, normal mood Skin exam: Present: warm, dry, intact, normal color. Absent: rash <Zenon Bee - Last Filed: 06/05/22 07:06> Course Vital Signs 06/05/22 04:57 Temperature 98.2 F Pulse Rate 94 Respiratory 22 Rate Blood Pressure 127/80 O2 Sat by Pulse 98 Oximetry Medical Decision Making - Lab Data Lab Results 06/05/22 Range/Units 05:54 Urine Opiates Screen Not Detected (NotDetected) Ur Oxycodone Screen Not Detected (NotDetected) Urine Methadone Screen Not Detected (NotDetected) Ur Propoxyphene Screen Not Detected (NotDetected) Ur Barbiturates Screen Not Detected (NotDetected) U Tricyclic Antidepress Not Detected (NotDetected) Ur Phencyclidine Scrn Not Detected (NotDetected) Ur Amphetamines Screen Not Detected (NotDetected) U Methamphetamines Scrn Not Detected (NotDetected) U Benzodiazepines Scrn Not Detected (NotDetected) Urine Cocaine Screen Not Detected (NotDetected) U Marijuana (THC) Screen Detected H (NotDetected) Disposition Is patient prescribed a controlled substance at d/c from ED?: No <Zenon Bee - Last Filed: 06/05/22 07:06> Time of Disposition: 14:28 <Zenon Goff - Last Filed: 06/05/22 14:29> Clinical Impression: Homelessness, Situational depression Disposition: HOME SELF-CARE Condition: Good Instructions (If sedation given, give patient instructions): Depression (ED) Referrals: Flash Schofield MD [Primary Care Provider] - 1-2 days
[2022-06-05 06:23] LABS: Amphetamine Screen,Urine Not Detected (NotDetected); Barbiturate Screen,Urine Not Detected (NotDetected); Benzodiazepines Screen,Urine Not Detected (NotDetected); Cocaine Screen,Urine Not Detected (NotDetected); Methadone Screen, Urine Not Detected (NotDetected); Opiate Screen,Urine Not Detected (NotDetected); Oxycodone Screen, Urine Not Detected (NotDetected); Phencyclidine Screen,Urine Not Detected (NotDetected); Tricyclic Antidepressant,Urine Not Detected (NotDetected); Urn Cannabinoid Scrn Detected (NotDetected)
== END 2022-06-05 14:50 | disposition home or self-care (01) ==
LOC: EC 04:47
DX: F43.21 Adjustment disorder with depressed mood (principal); R45.851 Suicidal ideations; J44.9 Chronic obstructive pulmonary disease, unspecified; F17.200 Nicotine dependence, unspecified, uncomplicated; Z59.00 Homelessness unspecified; Z86.73 Personal history of transient ischemic attack (TIA), and cerebral infarction without residual deficits; Z91.030 Bee allergy status; Z91.018 Allergy to other foods
CPT/HCPCS: 80306; 82075; 99284

== ENCOUNTER 2022-06-28 00:21 | Emergency (ER) | payer OTHER ==
[2022-06-28 00:42] VITALS: RESP 16; TEMP 98
[2022-06-28] MEDS ORDERED: KETOROLAC 15 MG/ML 1 ML VIAL IM STA (00:57)
--- NOTE | 2022-06-28 01:56 | XR ---
EXAMINATION TYPE: XR hand complete RT DATE OF EXAM: 06/28/2022 COMPARISON: 06/13/2022 HISTORY: Pain TECHNIQUE: 3 views FINDINGS: There is a boxers fracture of the distal fifth metacarpal. Fracture line is still visible. There is slight posterior angulation at the fracture site. There is mild deformity also of the distal fourth metacarpal consistent with a boxer fracture. Fracture line still visible. The carpal bones ar e intact. The fingers are intact. IMPRESSION: Subacute fractures of the distal fourth and fifth metacarpals without change in position compared to the old exam.
--- NOTE | 2022-06-28 02:21 | ED ---
General Adult HPI - General Chief complaint: Extremity Injury, Upper Stated complaint: Pain in right hand Time Seen by Provider: 06/28/22 00:54 Source: patient, RN notes reviewed, old records reviewed Mode of arrival: ambulatory Limitations: no limitations - History of Present Illness Initial comments: This is a 52-year-old male that presents to the emergency room with right hand pain. Patient was diagnosed with fracture of the fourth and fifth metacarpals on June 13 and placed in a splint, directed to follow up with orthopedics which he states he has not. Patient states that he is homeless and does not know how to get to the orthopedic office. He's been using Motrin with no relief from his pain. Splint and beverley wrap in place, capillary refill is less than 2 seconds. -: week(s) (2) Location: right (hand), upper extremity Radiation: non-radiation Severity scale (1-10): 4 Quality: aching Consistency: constant Improves with: none Associated Symptoms: denies other symptoms Treatments Prior to Arrival: NSAID - Related Data Home Medications Medication Instructions Recorded Confirmed Ipratropium [place] [Atrovent Hfa] 2 puff INHALATION RT-QID PRN 08/02/21 11/04/21 Albuterol Sulfate [Proair Hfa] 2 puff INHALATION RT-Q4H PRN 09/27/21 11/04/21 Ergocalciferol [Vitamin D2 (1250 1,250 mcg PO QMONTHLY 11/04/21 11/04/21 Mcg = 46477 Iu)] Mirtazapine [Remeron] 30 mg PO HS 11/04/21 11/04/21 PARoxetine [Paxil] 20 mg PO DAILY 11/04/21 11/04/21 QUEtiapine FUMARATE [SEROquel] 25 mg PO HS 11/04/21 11/04/21 Previous Rx's Medication Instructions Recorded Ibuprofen [Motrin] 600 mg PO Q8HR PRN #30 tab 06/13/22 Allergies Allergy/AdvReac Type Severity Reaction Status Date / Time bee venom protein (honey bee) Allergy Anaphylaxis Verified 06/28/22 00:40 horseradish Allergy Anaphylaxis Verified 06/28/22 00:40 venom-wasp Allergy Anaphylaxis Verified 06/28/22 00:40 Review of Systems ROS Statement: Those systems with pertinent positive or pertinent negative responses have been documented in the HPI. ROS Other: All systems not noted in ROS Statement are negative. 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 Past Anesthesia/Blood Transfusion Reactions: No Reported Reaction Additional Past Anesthesia/Blood Transfusion Reaction / Comment(s): Pt has never had general/spinal anesthesia Past Psychological History: Anxiety, Bipolar, Depression, PTSD, Schizoaffective Disorder, Schizophrenia Smoking Status: Current every day smoker Past Alcohol Use History: None Reported Past Drug Use History: Marijuana - Past Family History Mother Family Medical History: CVA/TIA, Diabetes Mellitus, Myocardial Infarction ([place]) Father Additional Family Medical History / Comment(s): Emphesema General Exam Limitations: no limitations General appearance: alert, in no apparent distress Head exam: Present: atraumatic Eye exam: Absent: scleral icterus, conjunctival injection, periorbital swelling Neck exam: Present: full ROM. Absent: meningismus Respiratory exam: Absent: respiratory distress Cardiovascular Exam: Present: regular rate Extremities exam: Present: normal capillary refill Right Hand Wrist exam: Present: tenderness (Pain with flexion of the fourth and fifth digit), ecchymosis (Over fourth and fifth carpal), other (Skin intact). Absent: abrasion, laceration Vascular: Present: normal capillary refill, radial pulse. Absent: vascular compromise Neurological exam: Present: alert, oriented X3, normal gait Psychiatric exam: Present: normal affect, normal mood Skin exam: Present: warm, dry, normal color. Absent: cyanosis, diaphoretic, petechiae, pallor Course Vital Signs 06/28/22 06/28/22 00:40 02:37 Temperature 98 F Pulse Rate 85 78 Respiratory 16 16 Rate Blood Pressure 140/70 132/81 O2 Sat by Pulse 98 98 Oximetry Medical Decision Making - Medical Decision Making 52-year-old disheveled homeless male presents with right hand pain since f racturing it June 13. Patient is wearing a spling and beverley wrap, states he has not seen orthopedics. Splint was removed and skin is intact. Capillary refill less than 2 seconds. There is bruising to the dorsum and palmar surface of the hand. New webril and beverley wrap was applied. Capillary refill less than 2 seconds. Sensation intact. I did stress the importance of followup with ortho with the patient. I explained that the longer he waits to see ortho the higher risk of malunion and other complications with healing. Patient is a daily smoker. He was directed to continue taking Tylenol and Motrin as needed for pain and follow up with orthopedics this week. He is agreeable to this plan of care. Case discussed with Dr. Jones. Disposition Clinical Impression: Homelessness, Hand fracture, right Disposition: HOME SELF-CARE Condition: Good Instructions (If sedation given, give patient instructions): Hand Fracture (ED) Additional Instructions: Continue taking Tylenol and or Motrin as needed for pain. Wear splint and please follow-up with orthopedics this week for continuation of care. Failling to follow up with orthopedics can lead to improper healing and chronic pain. Is patient prescribed a controlled substance at d/c from ED?: No Referrals: Flash Schofield MD [Primary Care Provider] - 1-2 days Chidi Clark DO [Doctor of Osteopathic Medicine] - 1-2 days Time of Disposition: 02:27
[2022-06-28 02:37] VITALS: BP 132/81; PULSE 78
== END 2022-06-28 02:36 | disposition home or self-care (01) ==
LOC: EC 00:21
DX: S62.304A Unspecified fracture of fourth metacarpal bone, right hand, initial encounter for closed fracture (principal); S62.306A Unspecified fracture of fifth metacarpal bone, right hand, initial encounter for closed fracture; J45.909 Unspecified asthma, uncomplicated; I25.2 Old myocardial infarction; Z59.00 Homelessness unspecified; Z91.030 Bee allergy status; Z91.013 Allergy to seafood; X58.XXXA Exposure to other specified factors, initial encounter
CPT/HCPCS: 73130; 99283; 96372; J1885

== ENCOUNTER 2022-08-12 22:36 | Inpatient (IN) | payer MEDICAID, OTHER ==
--- NOTE | 2022-08-13 00:40 | ED ---
General Adult HPI - General Chief complaint: Psychiatric Symptoms Stated complaint: Mental Health Time Seen by Provider: 08/12/22 22:40 Source: patient, RN notes reviewed, old records reviewed Mode of arrival: ambulatory Limitations: no limitations - History of Present Illness Initial comments: Patient is a 52-year-old male with past medical history remarkable for COPD, psychiatric illness who states he does not take medications but medicates with marijuana presents emergency Department complaining of suicidal and homicidal ideations. Denies any plans for homicide attempt. Does endorse plans for suicide by being hit by car was stepping into traffic. Denies any attempts. Denies any visual or auditory hallucinations. He has no other acute complaints at this time. States she would like to be evaluated by psychiatry. - Related Data Home Medications Medication Instructions Recorded Confirmed Ipratropium [place] [Atrovent Hfa] 2 puff INHALATION RT-QID PRN 08/02/21 11/04/21 Albuterol Sulfate [Proair Hfa] 2 puff INHALATION RT-Q4H PRN 09/27/21 11/04/21 Ergocalciferol [Vitamin D2 (1250 1,250 mcg PO QMONTHLY 11/04/21 11/04/21 Mcg = 07019 Iu)] Mirtazapine [Remeron] 30 mg PO HS 11/04/21 11/04/21 PARoxetine [Paxil] 20 mg PO DAILY 11/04/21 11/04/21 QUEtiapine FUMARATE [SEROquel] 25 mg PO HS 11/04/21 11/04/21 Previous Rx's Medication Instructions Recorded Ibuprofen [Motrin] 600 mg PO Q8HR PRN #30 tab 06/13/22 Allergies Allergy/AdvReac Type Severity Reaction Status Date / Time bee venom protein (honey bee) Allergy Anaphylaxis Verified 06/28/22 00:40 horseradish Allergy Anaphylaxis Verified 06/28/22 00:40 venom-wasp Allergy Anaphylaxis Verified 06/28/22 00:40 Review of Systems ROS Statement: Those systems with pertinent positive or pertinent negative responses have been documented in the HPI. Review of Systems: CONST: Denies fever EYES: Denies blurry vision ENT: Denies nasal congestion C/V: Denies Chest pain RESP: Denies shortness of breath GI: Denies abdominal pain : Denies dysuria SKIN: Denies rash. MSK: Denies joint pain. NEURO: Denies headache PSYCH: Endorses suicidal ideations, plans. Denies attempts. Endorses homicidal ideations but denies plans or attempts.. Denies visual or auditory hallucinations. ROS Other: All systems not noted in ROS Statement are negative. 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 Past Anesthesia/Blood Transfusion Reactions: No Reported Reaction Additional Past Anesthesia/Blood Transfusion Reaction / Comment(s): Pt has never had general/spinal anesthesia Past Psychological History: Anxiety, Bipolar, Depression, PTSD, Schizoaffective Disorder, Schizophrenia Smoking Status: Current every day smoker Past Alcohol Use History: None Reported Past Drug Use History: Marijuana - Past Family History Mother Family Medical History: CVA/TIA, Diabetes Mellitus, Myocardial Infarction ([place]) Father Additional Family Medical History / Comment(s): Emphesema General Exam - General Exam Comments Initial Comments: General: Appears in no acute distress. HEAD: Normal with no signs of head trauma. EYES: PERRLA, EOMI, conjunctiva normal, no discharge. ENT: Hearing grossly intact, normal oropharynx. RESPIRATORY: Clear breath sounds bilaterally. No wheezes, rales, or rhonchi. C/V: Regular rate and rhythm. S1 and S2 auscultated, no edema, peripheral pulses 2+ and intact throughout ABD: Abd is soft, nontender, nondistended EXT: Normal range of motion, no obvious deformity SKIN: No rashes or lesions observed on exposed skin. NEURO: Alert and Oriented 4. Limitations: no limitations Course Vital Signs 08/12/22 08/13/22 22:37 00:39 Temperature 97.7 F Pulse Rate 82 89 Respiratory 16 16 Rate Blood Pressure 121/81 133/67 O2 Sat by Pulse 99 97 Oximetry Medical Decision Making - Medical Decision Making Based on the patient's presentation and physical exam, I do believe he requires psychiatric evaluation. Sitter was ordered. Suicide precautions were ordered. Patient was placed in agreement down. BAT is 0. UDS is pending. Vital signs are within acceptable limits. At this time patient is medically cleared for evaluation by psychiatry. Disposition is pending psychiatric evaluation. EPS notified. EPS evaluated the patient. Determined that he does need inpatient psychiatric criteria. Covid swab is negative. Patient will be admitted to the psychiatric unit in stable condition. - Lab Data Lab Results 08/13/22 Range/Units 01:19 Coronavirus (PCR) Not Detected (Not Detectd) Disposition Clinical Impression: Encounter for psychiatric assessment, Suicidal ideations, Homicidal ideations Disposition: ADMITTED IP TO THIS HOSP Condition: Stable
[2022-08-13] MEDS ORDERED: MAGNESIUM HYDROXIDE 2,400 MG/10 ML CUP PO PRN (02:27)
[2022-08-13] MEDS ORDERED: ACETAMINOPHEN TAB 325 MG TAB PO PRN (02:27)
[2022-08-13] MEDS ORDERED: MAG HYDROX/AL HYDROX/SIMETH 30 ML CUP PO PRN (02:27)
[2022-08-13] MEDS ORDERED: LORazepam 1 MG/0.5 ML VIAL IM PRN ×2 (02:34→09:17)
[2022-08-13] MEDS ORDERED: LORazepam 1 MG TAB PO PRN (02:34)
[2022-08-13] MEDS ORDERED: haloperidoL 5 MG TAB PO PRN (02:35)
[2022-08-13] MEDS ORDERED: HALOPERIDOL LACTATE 5 MG/ML 1 ML VIAL IM PRN (02:35)
[2022-08-13] MEDS: NICOTINE 14MG/24HR PATCH TRANSDERM SCH (09:06)
[2022-08-13] MEDS ORDERED: hydrOXYzine pamoate 25 MG CAP PO PRN (09:16)
--- NOTE | 2022-08-13 11:58 | P.HP ---
Psychiatric H&P - . H&P Date: 08/13/22 History & Physical: Allergies Allergy/AdvReac Type Severity Reaction Status Date / Time bee venom protein (honey bee) Allergy Anaphylaxis Verified 06/28/22 00:40 horseradish Allergy Anaphylaxis Verified 06/28/22 00:40 venom-wasp Allergy Anaphylaxis Verified 06/28/22 00:40 Vital Signs Temp 97.0 F L 08/13/22 03:28 Pulse 88 08/13/22 03:28 Resp 18 08/13/22 03:28 BP 98/59 08/13/22 03:28 Pulse Ox 97 08/13/22 00:39 FiO2 Intake & Output 08/12/22 08/13/22 08/13/22 18:59 06:59 18:59 Weight 53 kg 53 kg Laboratory Last Values Coronavirus (PCR) Not Detected (Not Detectd) 08/13/22 01:19 08/13/22 11:57 IDENTIFYING DATA: Patient is a single, unemployed, 52-year-old male with significant history of PTSD, schizoaffective disorder and schizophrenia who was admitted for suicidal ideation the context of homelessness. HPI: Patient presented to the hospital on 08/13/22, brought into the emergency department on his own volition for suicidal ideation the context of recent homelessness. The patient reports that he broke up with his girlfriend yesterday and that she kicked him out. He endorsed numerous suicidal thoughts and plans. The [facility] nurse stating that he would "get hit by a car, jumped in the river, or by cop examiner." He signed himself voluntarily to the psychiatric unit. The patient continues to endorse significant symptoms of depression including irritability, suicidal thoughts, and low mood. He reports hopelessness and helplessness due to his homelessness. The patient has not been in adherent with any medications and has not been following up with any of his outpatient appointments with [facility]. The patient maintains that he feels like none of the medications have ever worked except for Xanax. He is denying any auditory or visual hallucinations. He is reporting no paranoia or other delusions. .When inquiring about his expectations of treatment, the patient remains vague stating that he needs to just feel no longer depressed. After much consideration, the patient was agreeable to starting medications. PAST PSYCHIATRIC HISTORY: Patient states that he has been previously diagnosed with depression, bipolar disorder, schizoaffective disorder, and schizophrenia. Since his last psychiatric admission in September 2021, the patient has been present in our emergency department for mental health evaluation 11 times prior to this admission. The patient reports that he is no longer receiving any psychiatric medications as he felt like none of them ever worked. He maintains only Xanax and marijuana keeps him calm. The patient has had numerous inpatient psychiatric admissions. Patient denies any psychiatric outpatient follow-up. He reports one prior attempt at suicide when he was 15 years old. 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 Past Anesthesia/Blood Transfusion Reactions: No Reported Reaction Additional Past Anesthesia/Blood Transfusion Reaction / Comment(s): Pt has never had general/spinal anesthesia Past Psychological History: Anxiety, Bipolar, Depression, PTSD, Schizoaffective Disorder, Schizophrenia Smoking Status: Current every day smoker Past Alcohol Use History: None Reported Past Drug Use History: Marijuana ALLERGIES: honey bee venom, horseradish, wasp-venom CHEMICAL DEPENDENCY HISTORY: The patient reports that he continues to smoke one and half packs per day of tobacco. He denies any alcohol use. He reports frequent if not daily marijuana use. He does have history of stimulant use however denies any current illicit drug use. FAMILY PSYCHIATRIC/SUBSTANCE USE HISTORY: No reported family psychiatric history or history of substance abuse. SOCIAL HISTORY: Patient was born and raised in [place], [place]. He is single, never , but has a son living in [place]. He is currently homeless and has no source of income. He reports that he dropped out of school in the 10th grade. He did serve 4 and half years in group home for criminal sexual conduct and was released in 2002. He is a registered sex offender. MENTAL STATUS EXAM: General Appearance: Patient appears to be stated age is alert, directable, and attempts to cooperate. Patient appears to have fair hygiene and grooming. Short cut hair and well groomed. Behavior: Patient is seated upright in his bed without any agitated behavior. Speech: Patient's speech is fluent and nonpressured. Mood/Affect: Patient reports their mood is depressed, affect is irritable. Suicidality/Homicidality: Patient denies having any homicidal ideation intent or plan. Reporting suicidal ideation. Perceptions: Patient denies any visual hallucinations and denies any auditory hallucinations Though content/process: There is no evidence of any delusional thought content and thought process is linear and goal-directed. Memory and concentration: AOX3, grossly intact for the purposes of this session. Can spell "WORLD" backwards Judgment and insight: Poor STRENGTHS/WEAKNESSES: Strength is that the patient is resourceful. Weakness is that the patient is nonadherent with any outpatient treatment including therapy and medication management. INTELLECT: average IMPRESSIONS: Major depressive disorder, recurrent, severe Homelessness Cannabis use disorder Tobacco use disorder Rule out cluster B personality disorder traits - antisocial, borderline, narcissistic PLAN: -Patient is admitted under voluntary status to [facility] for stabilization of psychiatric symptoms and safety. Patient signed adult voluntary form and medication consent and is placed in patient's chart. -Medications : Will start patient on Effexor XL 75 mg by mouth daily for depression/anxiety Trazodone 50 mg by mouth at bedtime for depression/insomnia -Haldol and Vistaril PRN for agitation/aggression -Patient was counselled on substance abuse and desired to cut back on use -Patient was informed of the risks, benefits and side effects of the medication and patient verbally consented to taking the medications. Patient signed med consent form and was placed in chart. -Internal Medicine consult to perform medical evaluation and physical. -NRT - nicotine patch - on board for discharge planning. Encourage patient to participate in groups to work on coping skills. 08/13/22 11:58
[2022-08-13] MEDS: traZODone HCL 50 MG TAB PO SCH (20:13)
[2022-08-14] MEDS: NICOTINE 14MG/24HR PATCH TRANSDERM SCH (09:14)
[2022-08-14] MEDS: VENLAFAXINE HCL ER 75 MG CAP PO SCH (09:14)
[2022-08-14 14:24] LABS: Basophils # (A) 0.1 k/uL (0-0.2); Basophils % (A) 1 %; Eosinophils # (A) 0.2 k/uL (0-0.7); Eosinophils % (A) 3 %; HCT 42.5 % (39.0-53.0); HGB 13.7 gm/dL (13.0-17.5); Hypochromasia Slight; Lymphocytes # (A) 2.3 k/uL (1.0-4.8); Lymphocytes % (A) 25 %; MCH 31.1 pg (25.0-35.0); MCHC 32.3 g/dL (31.0-37.0); MCV 96.2 fL (80.0-100.0); Mean Platelet Volume 7.4; Monocytes # (A) 0.4 k/uL (0-1.0); Monocytes % (A) 4 %; Neutrophils # (A) 5.9 k/uL (1.3-7.7); Neutrophils % (A) 66 %; Platelet Count 336 k/uL (150-450); RBC 4.42 m/uL (4.30-5.90); RDW 13.5 % (11.5-15.5)
[2022-08-14 14:32] LABS: Albumin 4.4 g/dL (3.5-5.0); Calcium 9.4 mg/dL (8.4-10.2); Potassium 5.4 mmol/L (3.5-5.1); Total Bilirubin 0.4 mg/dL (0.2-1.3); Total Protein 6.7 g/dL (6.3-8.2)
[2022-08-14] MEDS: traZODone HCL 50 MG TAB PO SCH (20:02)
[2022-08-15] MEDS: NICOTINE 14MG/24HR PATCH TRANSDERM SCH (09:20)
[2022-08-15] MEDS: VENLAFAXINE HCL ER 75 MG CAP PO SCH (09:20)
--- NOTE | 2022-08-15 14:30 | P.PN ---
Progress Note - Text Progress Note Date: 08/14/22 Interval history: Patient was seen wandering the hallways and was directable and agreeable to speak with hand sign writer. She reports he is anxious and states Ativan calms him down. He also asks for Ensure due to being underweight. At this time, patient denies any suicidal or homicidal ideation, intent or plan, and denies any auditory or visual hallucinations. Patient denies any side effects from the medications and has been compliant with meds. Mental status exam: General Appearance: Patient appears to be stated age, has poor dentition, appears underweight. Behavior: No agitated behavior. Patient is anxious. Speech: Patient's speech is fluent and rapid but non-pressured. Mood/Affect: Mood is anxious, affect is congruent and constricted. Suicidality/Homicidality: Patient denies having any suicidal or homicidal ideation intent or plan. Perceptions: Patient denies any auditory or visual hallucinations. Though content/process: There is no evidence of any delusional thought content and thought process is linear and goal-directed. Memory and concentration: AOX3, grossly intact for the purposes of this session Judgment and insight: improving mildly Assessment/Plan: Continue with current diagnosis. Patient continues to meet criteria for inpatient psychiatric admission for symptom stabilization and safety. Start Ensure TID with meals for supplementation. Continue Effexor XR 75 mg daily in the morning with plan to increase on Tuesday for anxiety/depression. Monitor for medication compliance and for any psychotropic medication side effects. Will continue to monitor ongoing response to treatment. Encouraged participation in milieu.
[2022-08-15] MEDS ORDERED: ONDANSETRON 4 MG TAB PO PRN (15:59)
[2022-08-15] MEDS: traZODone HCL 50 MG TAB PO SCH (20:06)
--- NOTE | 2022-08-15 22:54 | P.PN ---
Progress Note - Text Progress Note Date: 08/15/22 Interval history: Patient was seen resting in his bed and was directable and agreeable to speak with fiction and nonfiction prose writer. He continues to complain of high anxiety today. He is compliant with his Effexor but complains of nausea affecting his appetite. At this time patient denies any suicidal or homicidal ideation, intent or plan. He denies any auditory or visual hallucinations. He has started the Ensure supplementation with meals due to being underweight. Mental status exam: General Appearance: Patient appears to be stated age, has poor dentition, appears underweight. Behavior: No agitated behavior. Patient is anxious. Speech: Patient's speech is fluent and rapid but non-pressured. Mood/Affect: Mood is anxious, affect is congruent and constricted. Suicidality/Homicidality: Patient denies having any suicidal or homicidal ideation intent or plan. Perceptions: Patient denies any auditory or visual hallucinations. Though content/process: There is no evidence of any delusional thought content and thought process is linear and goal-directed. Memory and concentration: AOX3, grossly intact for the purposes of this session Judgment and insight: improving mildly Assessment/Plan: Continue with current diagnosis. Patient continues to meet criteria for inpatient psychiatric admission for symptom stabilization and safety. Patient will be maintained on current psychotropic medication regimen. Will defer plan to increase Effexor XR dose due to nausea. Start Zofran 4 mg Q8H PRN for nausea. Monitor for medication compliance and for any psychotropic medication side effects. Will continue to monitor ongoing response to treatment. Encouraged participation in milieu. He will need to follow-up with a dentist and PCP after discharge.
[2022-08-16] MEDS: NICOTINE 14MG/24HR PATCH TRANSDERM SCH (09:53)
[2022-08-16] MEDS: VENLAFAXINE HCL ER 75 MG CAP PO SCH (09:53)
--- NOTE | 2022-08-16 11:56 | P.PN ---
Progress Note - Text Progress Note Date: 08/16/22 Interval History: Patient was seen resting in bed and was directable and agreeable to speak with movie writer in his room. Currently, the patient is not reporting any suicidal or homicidal ideation, intention, and/or plan. He is not reporting any auditory or visual hallucinations. He denies any paranoia or other delusions. He does report that he has some difficulty with sleep and anxiety however states that they are manageable at this time. He has been adherent with his medication and is not reporting any significant side effects. The patient understands that he is currently homeless and is attempting to find out other plans to deal with this. Mental Status Exam: General Appearance: Patient appears to be stated age is alert, directable, and cooperative. Behavior: Patient is calmly seated without any agitated behavior. Speech: Patient's speech is fluent and nonpressured. Mood/Affect: Mood is improving mildly, affect is congruent and constricted. Suicidality/Homicidality: Patient denies having any suicidal or homicidal ideation intent or plan. Perceptions: Patient denies any visual hallucinations and denies any auditory hallucinations Though content/process: There is no evidence of any delusional thought content and thought process is linear and goal-directed. Memory and concentration: AOX3, grossly intact for the purposes of this session Judgment and insight: Improving mildly Vital Signs Temp 98.2 F 08/16/22 06:49 Pulse 69 08/16/22 06:49 Resp 14 08/16/22 06:49 BP 116/78 08/16/22 06:49 Pulse Ox 98 08/16/22 06:49 FiO2 Intake & Output 08/15/22 08/16/22 08/16/22 18:59 06:59 18:59 Weight 54.8 kg Laboratory Results WBC 9.0 k/uL (3.8-10.6) 08/14/22 13:50 RBC 4.42 m/uL (4.30-5.90) 08/14/22 13:50 Hgb 13.7 gm/dL (13.0-17.5) 08/14/22 13:50 Hct 42.5 % (39.0-53.0) 08/14/22 13:50 MCV 96.2 fL (80.0-100.0) 08/14/22 13:50 MCH 31.1 pg (25.0-35.0) 08/14/22 13:50 MCHC 32.3 g/dL (31.0-37.0) 08/14/22 13:50 RDW 13.5 % (11.5-15.5) 08/14/22 13:50 Plt Count 336 k/uL (150-450) 08/14/22 13:50 MPV 7.4 08/14/22 13:50 Neutrophils % 66 % 08/14/22 13:50 Lymphocytes % 25 % 08/14/22 13:50 Monocytes % 4 % 08/14/22 13:50 Eosinophils % 3 % 08/14/22 13:50 Basophils % 1 % 08/14/22 13:50 Neutrophils # 5.9 k/uL (1.3-7.7) 08/14/22 13:50 Lymphocytes # 2.3 k/uL (1.0-4.8) 08/14/22 13:50 Monocytes # 0.4 k/uL (0-1.0) 08/14/22 13:50 Eosinophils # 0.2 k/uL (0-0.7) 08/14/22 13:50 Basophils # 0.1 k/uL (0-0.2) 08/14/22 13:50 Hypochromasia Slight 08/14/22 13:50 Sodium 137 mmol/L (137-145) 08/14/22 13:50 Potassium 5.4 mmol/L (3.5-5.1) H 08/14/22 13:50 Chloride 100 mmol/L (98-107) 08/14/22 13:50 Carbon Dioxide 29 mmol/L (22-30) 08/14/22 13:50 Anion Gap 8 mmol/L 08/14/22 13:50 BUN 20 mg/dL (9-20) 08/14/22 13:50 Creatinine 1.12 mg/dL (0.66-1.25) 08/14/22 13:50 Est GFR (CKD-EPI)AfAm 87 (>60 ml/min/1.73 sqM) 08/14/22 13:50 Est GFR (CKD-EPI)NonAf 75 (>60 ml/min/1.73 sqM) 08/14/22 13:50 Glucose 112 mg/dL (74-99) H 08/14/22 13:[address] Glu mg/dL 124 08/14/22 13:50 Hemoglobin A1c 6.0 % (0.0-6.0) 08/14/22 13:50 Calcium 9.4 mg/dL (8.4-10.2) 08/14/22 13:50 Total Bilirubin 0.4 mg/dL (0.2-1.3) 08/14/22 13:50 AST 20 U/L (17-59) 08/14/22 13:50 ALT 14 U/L (4-49) 08/14/22 13:50 Alkaline Phosphatase 112 U/L (38-126) 08/14/22 13:50 Total Protein 6.7 g/dL (6.3-8.2) 08/14/22 13:50 Albumin 4.4 g/dL (3.5-5.0) 08/14/22 13:50 Coronavirus (PCR) Not Detected (Not Detectd) 08/13/22 01:19 Assessment Major depressive disorder, recurrent, severe Homelessness Cannabis use disorder Tobacco use disorder Rule out cluster B personality disorder traits - antisocial, borderline, narcissistic Plan: -Patient continues to meet criteria for inpatient psychiatric admission for symptom stabilization and safety. Patient has signed adult voluntary form and medication consent and was placed in patient's chart. -Medications: Continue Effexor 75 mg by mouth daily for depression/anxiety Increase trazodone to 100 mg by mouth at bedtime for depression/insomnia -When necessary Ativan and Haldol for agitation/aggression. -NRT - nicotine patch -SW on board for discharge planning. Encouraged the patient to participate in milieu.
[2022-08-16] MEDS ORDERED: traZODone HCL 50 MG TAB PO SCH (21:00)
--- NOTE | 2022-08-17 03:24 | CONS ---
CONSULTATION CHIEF COMPLAINT: Major depression. HISTORY OF PRESENT ILLNESS: This is another admission for this 52-year-old depressed and homeless white male. He has been in and out of the hospital in the past for various problems including depression, COPD, and malnutrition. He has not been seen for a while. Apparently everything was going well and his girlfriend broke up with him and became suicidal. REVIEW OF SYSTEMS: He denies any headaches, neurologic symptoms, change in vision, hearing, chest pain, cough, hemoptysis, syncope, abdominal pain, vomiting, diarrhea, melena, hematochezia, jaundice, diabetes, etc. Past medical history, family history, and personal and social histories reveal that he is allergic to bee stings, shellfish, and horseradish. He is not currently on any medication. When he was last seen, he was on Paxil and Seroquel as well as Remeron and an inhaler. He does continue to smoke 1-1/2 packs of cigarettes a day. PHYSICAL EXAMINATION: VITAL SIGNS: Blood pressure 110/80 with a pulse of 93 and regular, respirations 20, and he is afebrile. GENERAL: Appeared to be slender, well developed and tanned. He was depressed. HEAD, EARS, EYES, NOSE, MOUTH AND THROAT: Normal. CHEST: Demonstrated clear breath sounds, but there was evidence of emphysema. He had increased AP diameter. CARDIOVASCULAR: Normal sinus rhythm. ABDOMEN: Flat, soft and nontender. No masses or visceromegaly. EXTREMITIES: Normal. NEUROLOGIC: He is intact. IMPRESSION: He is admitted to the hospital with diagnosis of: 1. Major depression. 2. Chronic obstructive pulmonary disease. RECOMMENDATIONS: None. MMODL / IJN: [id number] /
[2022-08-17] MEDS: VENLAFAXINE HCL ER 75 MG CAP PO SCH (09:07)
[2022-08-17] MEDS: NICOTINE 14MG/24HR PATCH TRANSDERM SCH (09:08)
--- NOTE | 2022-08-17 11:48 | P.PN ---
Progress Note - Text Progress Note Date: 08/17/22 Interval History: Patient was seen resting in bed and was directable and agreeable to speak with senior copywriter in his room. The patient reports he is feeling better. He is not reporting any suicidal or homicidal ideation, intention, and/or plan. He reports no auditory or visual hallucinations. He denies any paranoia or other delusions. He has been adherent with his medications and reports no side effects. He does acknowledge some feelings of irritability but states that this is approving. He does report that he has insomnia and approximates 3-4 hours of sleep. Mental Status Exam: General Appearance: Patient appears to be stated age is alert, directable, and cooperative. Behavior: Patient is calmly seated without any agitated behavior. Speech: Patient's speech is fluent and nonpressured. Mood/Affect: Mood is improving mildly, affect is congruent and constricted. Suicidality/Homicidality: Patient denies having any suicidal or homicidal ideation intent or plan. Perceptions: Patient denies any visual hallucinations and denies any auditory hallucinations Though content/process: There is no evidence of any delusional thought content and thought process is linear and goal-directed. Memory and concentration: AOX3, grossly intact for the purposes of this session Judgment and insight: Improving mildly Vital Signs Temp 97.9 F 08/17/22 06:00 Pulse 67 08/17/22 06:00 Resp 18 08/17/22 06:00 BP 104/59 08/17/22 06:00 Pulse Ox 98 08/17/22 06:00 FiO2 Assessment Major depressive disorder, recurrent, severe Homelessness Cannabis use disorder Tobacco use disorder Rule out cluster B personality disorder traits - antisocial, borderline, narcissistic Plan: -Patient continues to meet criteria for inpatient psychiatric admission for symptom stabilization and safety. Patient has signed adult voluntary form and medication consent and was placed in patient's chart. -Medications: Continue Effexor 75 mg by mouth daily for depression/anxiety Increase trazodone to 200 mg by mouth at bedtime for depression/insomnia -When necessary Ativan and Haldol for agitation/aggression. -NRT - nicotine patch -SW on board for discharge planning. Encouraged the patient to participate in milieu.
[2022-08-17 15:19] VITALS: BMI 15.5
[2022-08-17] MEDS ORDERED: traZODone HCL 100 MG TAB PO SCH (21:00)
[2022-08-18 07:06] VITALS: BP 129/65; PULSE 77; RESP 14; TEMP 98.4
[2022-08-18] MEDS: NICOTINE 14MG/24HR PATCH TRANSDERM SCH (10:28)
[2022-08-18] MEDS: VENLAFAXINE HCL ER 75 MG CAP PO SCH (10:29)
--- NOTE | 2022-08-18 13:17 | P.DS ---
Providers Date of admission: 08/13/22 02:25 Expected date of discharge: 08/18/22 Attending physician: Hill Delgado MD Consults: 08/13/22 02:27 Consult Physician Routine Consulting Provider: Flash Schofield Consult Reason/Comments: History and physical Do you want consulting provider notified?: Yes, Notify in am Primary care physician: Flash Schofield - Discharge Diagnosis(es) (1) Major depressive disorder without psychotic features Current Visit: Yes Status: Acute Priority: High (2) Cluster B personality disorder Current Visit: Yes Status: Chronic Priority: Medium (3) Cannabis use disorder, mild, abuse Current Visit: Yes Status: Chronic Priority: Medium (4) Homelessness Current Visit: Yes Status: Acute Priority: Low (5) Nicotine dependence Current Visit: Yes Status: Chronic Priority: Medium Hospital Course: Admission HPI: Patient is a single, unemployed, 52-year-old male with significant history of PTSD, schizoaffective disorder and schizophrenia who was admitted for suicidal ideation the context of homelessness. Patient presented to the hospital on 08/13/22, brought into the emergency department on his own volition for suicidal ideation the context of recent homelessness. The patient reports that he broke up with his girlfriend yesterday and that she kicked him out. He endorsed numerous suicidal thoughts and plans. The EPS nurse stating that he would "get hit by a car, jumped in the river, or by helicopter mechanic." He signed himself voluntarily to the psychiatric unit. The patient continues to endorse significant symptoms of depression including irritability, suicidal thoughts, and low mood. He reports hopelessness and helplessness due to his homelessness. The patient has not been in adherent with any medications and has not been following up with any of his outpatient appointments with [facility]. The patient maintains that he feels like none of the medications have ever worked except for Xanax. He is denying any auditory or visual hallucinations. He is reporting no paranoia or other delusions. .When inquiring about his expectations of treatment, the patient remains vague stating that he needs to just feel no longer depressed. After much consideration, the patient was agreeable to starting medications. Patient states that he has been previously diagnosed with depression, bipolar disorder, schizoaffective disorder, and schizophrenia. Since his last psychiatric admission in September 2021, the patient has been present in our emergency department for mental health evaluation 11 times prior to this admission. The patient reports that he is no longer receiving any psychiatric medications as he felt like none of them ever worked. He maintains only Xanax and marijuana keeps him calm. The patient has had numerous inpatient psychiatric admissions. Patient denies any psychiatric outpatient follow-up. He reports one prior attempt at suicide when he was 15 years old. Hospital course: Upon admission to the unit patient was initially noted to be irritable and endorsing suicidal ideation the context of recent homelessness. Patient was however directable and agreeable to commence treatment. Patient got along well with other patients on the unit and followed unit protocol. Patient was compliant with the medications and denied any side effects throughout hospital course. Patient was started on a regimen of Effexor and trazodone for management depression, anxiety, and insomnia. Patient spoke of his stressors and engaged in therapy both group and individual. Patient was also seen by medical team for history and physical exam. Throughout the course of the hospitalization patient gradually improved with regards to depression and suicidal ideation and, sleep and became future oriented with improved insight and judgment. On the day of discharge patient denied any suicidal or homicidal i deations intent or plan denied any auditory or visual hallucinations. Patient endorsed wanting to live for his health. The patient denied any access to guns or weapons. Patient denied any paranoia and did not endorse any delusions. Patient does have a significant history of substance abuse however was counseled on abstaining from all substances including alcohol and marijuana. Patient was offered however declined inpatient substance-abuse rehab. Patient was also counseled on the medications and need for regular compliance and was encouraged to follow-up with their outpatient appointment for mental health and also for primary care. Prior to discharge a family meeting will be arranged by social human services assistants to answer any questions and ensure safety upon discharge. Mental status exam: General Appearance: Patient appears to be stated age is alert, pleasant, and cooperative. Patient is in no acute distress and has fair hygiene and grooming Behavior: Patient is calmly seated without any agitated behavior. Speech: Patient's speech is fluent and nonpressured. Mood/Affect: Patient reports their mood is "much better", affect is congruent and euthymic. Suicidality/Homicidality: Patient denies having any suicidal or homicidal ideation intent or plan. Perceptions: Patient denies any auditory or visual hallucinations. Though content/process: There is no evidence of any delusional thought content and thought process is linear and goal-directed. more future oriented Memory and concentration: AOX3, grossly intact for the purposes of this session. Can spell "WORLD" backwards correctly. Judgment and insight: Improved with guarded prognosis Impression: Major depressive disorder, recurrent, severe Homelessness Cannabis use disorder Tobacco use disorder Rule out cluster B personality disorder traits - antisocial, borderline, narcissistic Plan: -Continue with discharge today as patient has improved and stabilized psychiatrically and is not currently an imminent threat to himself and/or others. Patient will remain at chronically elevated risk due to his homelessness and prior attempts at suicide. -Continue medications: Effexor XR 75 mg by mouth daily for depression/anxiety Trazodone 20 mg by mouth at bedtime for depression/insomnia Ativan 1 mg by mouth twice a day when necessary for 3 days for anxiety -Patient was counseled on the need for medication compliance and appropriate follow-up at mental health and also primary care for medical issues. Patient verbalized understanding and agreed. -Social work to arrange for and conduct family meeting to ensure safety upon d ischarge and answer any questions/concerns. Social work also to arrange for patients follow up appointments with [facility] for psychiatric care along with follow up with primary care provider. -Patient counseled on abstaining from recreational drugs and marijuana and alcohol. Was informed/educated on the adverse effects on their physical and mental health. Patient verbally agreed and understood. -Patient was instructed to return to the hospital or seek immediate medical care if their psychiatric or medical symptoms do worsen or reoccur. -Psychoeducation and supportive therapy provided to patient. Risks and benefits of pharmacological treatment versus the risks and benefits of nontreatment weight and discussed. Informed consent discussion held. Common side effects of psychotropics discussed such as, but not limited to headache, GI disturbance, sexual dysfunction, movement disorders, sedation, and orthostatic hypotension. Life threatening and blackbox warnings of prescribed medications also discussed. Potential risks of operating a vehicle or heavy machinery discussed with patient at length. Advised on importance of compliance and a reliable and responsible manner. Patient advised to review FDA consumer labeling of all medications prior to taking. Patient verbalized understanding of potential risks, and agrees with current treatment plan. Patient advised to medically contact physician/emergency personnel if any acute changes in condition occur. Vital Signs Temp 98.4 F 08/18/22 06:48 Pulse 77 08/18/22 06:48 Resp 14 08/18/22 06:48 BP 129/65 08/18/22 06:48 Pulse Ox 98 08/17/22 06:00 FiO2 Intake & Output 08/17/22 08/18/22 08/18/22 18:59 06:59 18:59 Weight 54.8 kg Laboratory Results WBC 9.0 k/uL (3.8-10.6) 08/14/22 13:50 RBC 4.42 m/uL (4.30-5.90) 08/14/22 13:50 Hgb 13.7 gm/dL (13.0-17.5) 08/14/22 13:50 Hct 42.5 % (39.0-53.0) 08/14/22 13:50 MCV 96.2 fL (80.0-100.0) 08/14/22 13:50 MCH 31.1 pg (25.0-35.0) 08/14/22 13:50 MCHC 32.3 g/dL (31.0-37.0) 08/14/22 13:50 RDW 13.5 % (11.5-15.5) 08/14/22 13:50 Plt Count 336 k/uL (150-450) 08/14/22 13:50 MPV 7.4 08/14/22 13:50 Neutrophils % 66 % 08/14/22 13:50 Lymphocytes % 25 % 08/14/22 13:50 Monocytes % 4 % 08/14/22 13:50 Eosinophils % 3 % 08/14/22 13:50 Basophils % 1 % 08/14/22 13:50 Neutrophils # 5.9 k/uL (1.3-7.7) 08/14/22 13:50 Lymphocytes # 2.3 k/uL (1.0-4.8) 08/14/22 13:50 Monocytes # 0.4 k/uL (0-1.0) 08/14/22 13:50 Eosinophils # 0.2 k/uL (0-0.7) 08/14/22 13:50 Basophils # 0.1 k/uL (0-0.2) 08/14/22 13:50 Hypochromasia Slight 08/14/22 13:50 Sodium 137 mmol/L (137-145) 08/14/22 13:50 Potassium 5.4 mmol/L (3.5-5.1) H 08/14/22 13:50 Chloride 100 mmol/L (98-107) 08/14/22 13:50 Carbon Dioxide 29 mmol/L (22-30) 08/14/22 13:50 Anion Gap 8 mmol/L 08/14/22 13:50 BUN 20 mg/dL (9-20) 08/14/22 13:50 Creatinine 1.12 mg/dL (0.66-1.25) 08/14/22 13:50 Est GFR (CKD-EPI)AfAm 87 (>60 ml/min/1.73 sqM) 08/14/22 13:50 Est GFR (CKD-EPI)NonAf 75 (>60 ml/min/1.73 sqM) 08/14/22 13:50 Glucose 112 mg/dL (74-99) H 08/14/22 13:[address] Glu mg/dL 124 08/14/22 13:50 Hemoglobin A1c 6.0 % (0.0-6.0) 08/14/22 13:50 Calcium 9.4 mg/dL (8.4-10.2) 08/14/22 13:50 Total Bilirubin 0.4 mg/dL (0.2-1.3) 08/14/22 13:50 AST 20 U/L (17-59) 08/14/22 13:50 ALT 14 U/L (4-49) 08/14/22 13:50 Alkaline Phosphatase 112 U/L (38-126) 08/14/22 13:50 Total Protein 6.7 g/dL (6.3-8.2) 08/14/22 13:50 Albumin 4.4 g/dL (3.5-5.0) 08/14/22 13:50 Coronavirus (PCR) Not Detected (Not Detectd) 08/13/22 01:19 Allergies Allergy/AdvReac Type Severity Reaction Status Date / Time bee venom protein (honey bee) Allergy Anaphylaxis Verified 06/28/22 00:40 horseradish Allergy Anaphylaxis Verified 06/28/22 00:40 venom-wasp Allergy Anaphylaxis Verified 06/28/22 00:40 Patient Condition at Discharge: Stable Plan - Discharge Summary Discharge Rx Participant: No New Discharge Prescriptions: New LORazepam [Ativan] 1 mg PO BID 3 Days #6 tab traZODone HCL [Desyrel] 200 mg PO HS 30 Days tab Venlafaxine HCl ER [Effexor XR] 75 mg PO DAILY 30 Days cap Continue Ibuprofen [Motrin] 600 mg PO Q8HR PRN #30 tab PRN Reason: Pain Ergocalciferol [Vitamin D2 (1250 Mcg = 15137 Iu)] 1,250 mcg PO QMONTHLY Discontinued Albuterol Sulfate [Proair Hfa] 2 puff INHALATION RT-Q4H PRN PRN Reason: Shortness Of Breath Ipratropium [place] [Atrovent Hfa] 2 puff INHALATION RT-QID PRN PRN Reason: Shortness Of Breath QUEtiapine FUMARATE [SEROquel] 25 mg PO HS PARoxetine [Paxil] 20 mg PO DAILY Mirtazapine [Remeron] 30 mg PO HS Discharge Medication List Ergocalciferol [Vitamin D2 (1250 Mcg = 32748 Iu)] 1,250 mcg PO QMONTHLY 11/04/21 [History] Ibuprofen [Motrin] 600 mg PO Q8HR PRN #30 tab 06/13/22 [Rx] LORazepam [Ativan] 1 mg PO BID 3 Days #6 tab 08/18/22 [Rx] Venlafaxine HCl ER [Effexor XR] 75 mg PO DAILY 30 Days cap 08/18/22 [Rx] traZODone HCL [Desyrel] 200 mg PO HS 30 Days tab 08/18/22 [Rx] Follow up Appointment(s)/Referral(s): [facility] [Outside] - 08/23/22 9:00 am (with [facility]) Flash Schofield MD [Primary Care Provider] - 1-2 days Patient Instructions/Handouts: How to Stop Smoking (DC), Depression (DC) Discharge Disposition: HOME SELF-CARE
== END 2022-08-18 14:04 | disposition home or self-care (01) | DRG 881 ==
LOC: EC 22:36 → 3MHU 08-13 02:25
PROVIDERS: ADMIT Psychiatry & Neurology Psychiatry; ATTEND Psychiatry & Neurology Psychiatry
DX: F32.9 Major depressive disorder, single episode, unspecified (principal); R45.851 Suicidal ideations; F12.90 Cannabis use, unspecified, uncomplicated; F17.210 Nicotine dependence, cigarettes, uncomplicated; F25.9 Schizoaffective disorder, unspecified; F31.9 Bipolar disorder, unspecified; F43.10 Post-traumatic stress disorder, unspecified; F60.89 Other specific personality disorders; G47.00 Insomnia, unspecified; I25.2 Old myocardial infarction; J44.9 Chronic obstructive pulmonary disease, unspecified; R45.850 Homicidal ideations; R63.6 Underweight; Z20.822 Contact with and (suspected) exposure to COVID-19; Z59.00 Homelessness unspecified; Z79.899 Other long term (current) drug therapy; Z86.73 Personal history of transient ischemic attack (TIA), and cerebral infarction without residual deficits
CPT/HCPCS: 80053; 82075; 83036; 85025; 87635; 99285

== ENCOUNTER 2022-08-26 00:19 | Emergency (ER) | payer OTHER ==
[2022-08-26 00:26] VITALS: TEMP 98
--- NOTE | 2022-08-26 00:38 | ED ---
General Adult HPI - General Chief complaint: Chest Pain Stated complaint: chest pain, Difficulty breathing Time Seen by Provider: 08/26/22 00:30 Source: patient, RN notes reviewed, old records reviewed Mode of arrival: ambulatory Limitations: no limitations - History of Present Illness Initial comments: 52-year-old male who presents for evaluation of right upper chest pain. Patient denies trauma. Denies difficulty breathing. States is worse with cough or deep inspiration. His been ongoing for the past several days. No fever. No central chest pain. No lower extremity pain or swelling. - Related Data Home Medications Medication Instructions Recorded Confirmed Ergocalciferol [Vitamin D2 (1250 1,250 mcg PO QMONTHLY 11/04/21 11/04/21 Mcg = 97967 Iu)] Previous Rx's Medication Instructions Recorded Ibuprofen [Motrin] 600 mg PO Q8HR PRN #30 tab 06/13/22 LORazepam [Ativan] 1 mg PO BID 3 Days #6 tab 08/18/22 Venlafaxine HCl ER [Effexor XR] 75 mg PO DAILY 30 Days cap 08/18/22 traZODone HCL [Desyrel] 200 mg PO HS 30 Days tab 08/18/22 Allergies Allergy/AdvReac Type Severity Reaction Status Date / Time bee venom protein (honey bee) Allergy Anaphylaxis Verified 08/26/22 00:22 horseradish Allergy Anaphylaxis Verified 08/26/22 00:22 venom-wasp Allergy Anaphylaxis Verified 08/26/22 00:22 Review of Systems ROS Statement: Those systems with pertinent positive or pertinent negative responses have been documented in the HPI. ROS Other: All systems not noted in ROS Statement are negative. 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 Past Anesthesia/Blood Transfusion Reactions: No Reported Reaction Additional Past Anesthesia/Blood Transfusion Reaction / Comment(s): Pt has never had general/spinal anesthesia Past Psychological History: Anxiety, Bipolar, Depression, PTSD, Schizoaffective Disorder, Schizophrenia Smoking Status: Current every day smoker Past Alcohol Use History: None Reported Past Drug Use History: Marijuana - Past Family History Mother Family Medical History: CVA/TIA, Diabetes Mellitus, Myocardial Infarction (ID) Father Additional Family Medical History / Comment(s): Emphesema General Exam Limitations: no limitations General appearance: alert, in no apparent distress Head exam: Present: atraumatic, normocephalic Eye exam: Present: normal appearance, PERRL ENT exam: Present: mucous membranes dry Neck exam: Present: normal inspection. Absent: tenderness, meningismus Respiratory exam: Present: normal lung sounds bilaterally. Absent: respiratory distress, wheezes Cardiovascular Exam: Present: regular rate, normal rhythm GI/Abdominal exam: Present: soft. Absent: distended, tenderness, guarding, rebound Extremities exam: Present: normal inspection, normal capillary refill. Absent: pedal edema, joint swelling Neurological exam: Present: alert, oriented X3, CN II-XII intact. Absent: motor sensory deficit Psychiatric exam: Present: normal affect, normal mood Skin exam: Present: warm, dry, intact. Absent: cyanosis, diaphoretic Course Vital Signs 08/26/22 00:22 Temperature 98 F Pulse Rate 90 Respiratory 16 Rate Blood Pressure 99/57 O2 Sat by Pulse 98 Oximetry EKG Findings - EKG Comments: EKG Findings:: EKG: Sinus rhythm rate of 87, MA interval 137, QRS duration 90, QTC 394, no ST segment elevation. Medical Decision Making - Medical Decision Making Patient with right upper chest pain, stable vitals. Well-appearing. EKG sinus rhythm without ST segment elevation. No change compared to prior. Chest x-rays performed, interpreted by myself, no acute cardiopulmonary findings, no pneumothorax. Patient is homeless, he is hungry and thirsty. He is given food and water in the emergency department. Stable for discharge. Disposition Clinical Impression: Atypical chest pain Disposition: HOME SELF-CARE Condition: Good Instructions (If sedation given, give patient instructions): Chest Pain (ED) Is patient prescribed a controlled substance at d/c from ED?: No Referrals: Flash Schofield MD [Primary Care Provider] - 1-2 days Time of Disposition: 01:50
--- NOTE | 2022-08-26 01:48 | XR ---
EXAMINATION TYPE: XR chest 2V DATE OF EXAM: 08/26/2022 COMPARISON: 03/08/2022 HISTORY: Chest pain TECHNIQUE: 2 views FINDINGS: Heart and mediastinum are normal. Lungs are clear. Diaphragm is normal. Bony thorax is inta ct. No pleural effusion. IMPRESSION: Normal chest. No adverse change.
[2022-08-26 02:37] VITALS: BP 110/74; PULSE 88; RESP 15
== END 2022-08-26 02:37 | disposition home or self-care (01) ==
LOC: EC 00:19
DX: R07.89 Other chest pain (principal); J44.9 Chronic obstructive pulmonary disease, unspecified; Z86.73 Personal history of transient ischemic attack (TIA), and cerebral infarction without residual deficits; F41.9 Anxiety disorder, unspecified; F31.9 Bipolar disorder, unspecified; F17.200 Nicotine dependence, unspecified, uncomplicated; Z91.030 Bee allergy status; Z91.013 Allergy to seafood; Z91.038 Other insect allergy status; Z79.899 Other long term (current) drug therapy
CPT/HCPCS: 71046; 93005; 99285

== ENCOUNTER 2022-11-07 23:28 | Emergency (ER) | payer OTHER ==
[2022-11-07 23:34] VITALS: BP 133/77; TEMP 97.7
--- NOTE | 2022-11-07 23:53 | ED ---
SOB HPI - General Chief Complaint: Shortness of Breath Stated Complaint: THADDEUS Time Seen by Provider: 11/07/22 23:37 Source: patient, RN notes reviewed, old records reviewed Mode of arrival: ambulatory Limitations: no limitations - History of Present Illness Initial Comments: T No fevers cough or congestion currently.his is a 52-year-old male who is well -known to emergency department coming in today for chest pain and shortness of breath. Patient states he has beenwith nausea chest pain shortness of breath and not feeling well throughout the day. Patient does have history of COPD and heart disease. No travel history or sick contacts. MD Complaint: shortness of breath, cough, chest pain -: hour(s) Radiation: back Severity: mild Severity scale (1-10): 3 Quality: aching Improves With: nothing Worsens With: nothing Known History Of: COPD Context: recent URI, anxiety Associated Symptoms: chest pain Treatments Prior to Arrival: none - Related Data Home Medications Medication Instructions Recorded Confirmed Ergocalciferol [Vitamin D2 (1250 1,250 mcg PO QMONTHLY 11/04/21 11/04/21 Mcg = 15092 Iu)] Previous Rx's Medication Instructions Recorded Ibuprofen [Motrin] 600 mg PO Q8HR PRN #30 tab 06/13/22 LORazepam [Ativan] 1 mg PO BID 3 Days #6 tab 08/18/22 Venlafaxine HCl ER [Effexor XR] 75 mg PO DAILY 30 Days cap 08/18/22 traZODone HCL [Desyrel] 200 mg PO HS 30 Days tab 08/18/22 Allergies Allergy/AdvReac Type Severity Reaction Status Date / Time bee venom protein (honey bee) Allergy Anaphylaxis Verified 11/07/22 23:34 horseradish Allergy Anaphylaxis Verified 11/07/22 23:34 venom-wasp Allergy Anaphylaxis Verified 11/07/22 23:34 Review of Systems ROS Statement: Those systems with pertinent positive or pertinent negative responses have been documented in the HPI. ROS Other: All systems not noted in ROS Statement are negative. 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 Past Anesthesia/Blood Transfusion Reactions: No Reported Reaction Additional Past Anesthesia/Blood Transfusion Reaction / Comment(s): Pt has never had general/spinal anesthesia Past Psychological History: Anxiety, Bipolar, Depression, PTSD, Schizoaffective Disorder, Schizophrenia Smoking Status: Current every day smoker Past Alcohol Use History: None Reported Past Drug Use History: Marijuana - Past Family History Mother Family Medical History: CVA/TIA, Diabetes Mellitus, Myocardial Infarction ([place]) Father Additional Family Medical History / Comment(s): Emphesema General Exam Limitations: no limitations General appearance: alert, in no apparent distress Head exam: Present: atraumatic, normocephalic, normal inspection Eye exam: Present: normal appearance, PERRL, EOMI. Absent: scleral icterus, conjunctival injection, periorbital swelling ENT exam: Present: normal exam, mucous membranes moist Neck exam: Present: normal inspection. Absent: tenderness, meningismus, lymphadenopathy Respiratory exam: Present: normal lung sounds bilaterally. Absent: respiratory distress, wheezes, rales, rhonchi, stridor Cardiovascular Exam: Present: regular rate, normal rhythm, normal heart sounds. Absent: systolic murmur, diastolic murmur, rubs, gallop, clicks GI/Abdominal exam: Present: soft, normal bowel sounds. Absent: distended, tenderness, guarding, rebound, rigid Extremities exam: Present: normal inspection, full ROM, normal capillary refill. Absent: tenderness, pedal edema, joint swelling, calf tenderness Back exam: Present: normal inspection Neurological exam: Present: alert, oriented X3, CN II-XII intact Psychiatric exam: Present: normal affect, normal mood Skin exam: Present: warm, dry, intact, normal color. Absent: rash Course Vital Signs 11/07/22 23:29 Temperature 97.7 F Pulse Rate 79 Respiratory 17 Rate Blood Pressure 133/77 O2 Sat by Pulse 100 Oximetry - Reevaluation(s) Reevaluation #1: 11/08/22 00:18 medical record is reviewed Reevaluation #2: 11/08/22 00:18 patient symptoms are improved here in the emergency department Reevaluation #3: 11/08/22 00:19 patient informed results and questions are answered Asking for food Reevaluation #4: 11/08/22 00:19 Differential Chest Pain: Stable Angina, Unstable Angina, STEMI, NSTEMI Aortic Dissection, Pneumothorax, Musculoskeletal, Esophageal Spasm GERD, Cholecystitis, Pancreatitis, Zoster, this is not meant to be an all-inclusive list. Differential Dyspnea: Coronary syndrome, arrhythmia, tamponade, asthma, COPD, pulmonary embolism, pneumonia, pneumothorax, pulmonary effusion, anaphylaxis, diabetic ketoacidosis, flailed chest, pulmonary contusion, diaphragmatic rupture, anemia, neuromuscular, this is not meant to be an all-inclusive list. Reevaluation #5: 11/08/22 00:19 Was pt. sent in by a medical professional or institution? @ -no Did you speak to anyone other than the patient for history? @ -no Did you review nursing and triage notes? @ -agree Were old charts reviewed? @ -prior ED visits Differential Diagnosis? @ -prior EKG interpreted by me (3pts min.)? @ -[none] X-rays interpreted by me (1pt min.)? @ -[none] CT interpreted by me (1pt min.)? @ -[none] U/S interpreted by me (1pt. min.)? @ -[none] What testing was considered but not performed? (CT, X-rays, U/S, labs)? Why? @ -no What meds were considered but not given? Why? @ -[none] Did you discuss the management of the patient with other professionals? @ -no Did you reconcile home meds? @ -[none] Was smoking cessation discussed for >3mins.? @ -[none] Was critical care preformed (if so, how long)? @ -[none] Were there social determinants of health that impacted care today? How? (Homelessness, low income, unemployed, alcoholism, drug addiction, transportation, low edu. Level, literacy, decrease access to med. care, half-way, rehab)? @ -no Was there de-escalation of care discussed even if they declined? (Discuss DNR or withdrawal of care, Hospice)? @ -no What co-morbidities impacted this encounter? (DM, HTN, Smoking, COPD, CAD, Cancer, CVA, Hep., AIDS, mental health diagnosis, sleep apnea, morbid obesity)? @ -no Was patient admitted / discharged? @ -dc Undiagnosed new problem with uncertain prognosis? @ -[none] Drug Therapy requiring intensive monitoring for toxicity (Heparin, Nitro, Insulin, Cardizem)? @ -[none] Were any procedures done? @ -[none] Diagnosis/symptom? @ -[default] Acute, or Chronic, or Acute on Chronic? @ -[default] Uncomplicated (without systemic symptoms) or Complicated (systemic symptoms)? @ -[default] Side effects of treatment? @ -[none] Exacerbation, Progression, or Severe Exacerbation] @ -[no] Poses a threat to life or bodily function? @ -[no] Medical Decision Making - Medical Decision Making 52 male well-known to our facility patient coming in for fluid and replaced arrests. Patient's testing is negative here in the ER as he is complaining of chest pain shortness of breath. Patient can be discharged home - Lab Data Result diagrams: 11/08/22 00:00 11/08/22 00:00 Lab Results 11/08/22 11/08/22 11/08/22 Range/Units 00:00 00:00 00:00 WBC 12.9 H (3.8-10.6) k/uL RBC 4.46 (4.30-5.90) m/uL Hgb 13.1 (13.0-17.5) gm/dL Hct 40.8 (39.0-53.0) % MCV 91.3 (80.0-100.0) fL MCH 29.3 (25.0-35.0) pg MCHC 32.1 (31.0-37.0) g/dL RDW 13.3 (11.5-15.5) % Plt Count 365 (150-450) k/uL MPV 7.5 Neutrophils % 66 % Lymphocytes % 23 % Monocytes % 5 % Eosinophils % 3 % Basophils % 1 % Neutrophils # 8.6 H (1.3-7.7) k/uL Lymphocytes # 3.0 (1.0-4.8) k/uL Monocytes # 0.7 (0-1.0) k/uL Eosinophils # 0.4 (0-0.7) k/uL Basophils # 0.2 (0-0.2) k/uL Sodium 138 (137-145) mmol/L Potassium 4.6 (3.5-5.1) mmol/L Chloride 104 (98-107) mmol/L Carbon Dioxide 27 (22-30) mmol/L Anion Gap 7 mmol/L BUN 12 (9-20) mg/dL Creatinine 0.86 (0.66-1.25) mg/dL Est GFR (CKD-EPI)AfAm >90 (>60 ml/min/1.73 sqM) Est GFR (CKD-EPI)NonAf >90 (>60 ml/min/1.73 sqM) Glucose 90 (74-99) mg/dL Calcium 9.2 (8.4-10.2) mg/dL Phosphorus 4.3 (2.5-4.5) mg/dL Magnesium 1.9 (1.6-2.3) mg/dL Total Bilirubin 0.5 (0.2-1.3) mg/dL AST 27 (17-59) U/L ALT 16 (4-49) U/L Alkaline Phosphatase 115 (38-126) U/L Troponin I <0.012 (0.000-0.034) ng/mL Total Protein 7.1 (6.3-8.2) g/dL Albumin 4.4 (3.5-5.0) g/dL - EKG Data -: EKG Interpreted by Me (EKG is sinus 57 MN 146 QRS 73 QTc 40 to) Disposition Clinical Impression: Homelessness, Chest pain, Dyspnea Disposition: HOME SELF-CARE Condition: Fair Instructions (If sedation given, give patient instructions): Chronic Bronchitis (ED) Is patient prescribed a controlled substance at d/c from ED?: No Referrals: Flash Schofield MD [Primary Care Provider] - 1-2 days Time of Disposition: 01:30
[2022-11-07] MEDS ORDERED: SODIUM CHLORIDE 0.9% 1,000 ML IV STA (23:59)
[2022-11-08 00:12] LABS: Basophils # (A) 0.2 k/uL (0-0.2); Basophils % (A) 1 %; Eosinophils # (A) 0.4 k/uL (0-0.7); Eosinophils % (A) 3 %; HCT 40.8 % (39.0-53.0); HGB 13.1 gm/dL (13.0-17.5); Lymphocytes % (A) 23 %; MCH 29.3 pg (25.0-35.0); MCHC 32.1 g/dL (31.0-37.0); MCV 91.3 fL (80.0-100.0); Mean Platelet Volume 7.5; Monocytes # (A) 0.7 k/uL (0-1.0); Monocytes % (A) 5 %; Neutrophils # (A) 8.6 k/uL (1.3-7.7); Neutrophils % (A) 66 %; Platelet Count 365 k/uL (150-450); RBC 4.46 m/uL (4.30-5.90); RDW 13.3 % (11.5-15.5); WBC 12.9 k/uL (3.8-10.6)
[2022-11-08 00:29] LABS: ALT 16 U/L (4-49); AST 27 U/L (17-59); African American GFR (CKD) >90 (>60 ml/min/1.73 sqM); Albumin 4.4 g/dL (3.5-5.0); Alkaline Phosphatase 115 U/L (38-126); Anion Gap 7 mmol/L; Blood Urea Nitrogen 12 mg/dL (9-20); Calcium 9.2 mg/dL (8.4-10.2); Carbon Dioxide 27 mmol/L (22-30); Chloride 104 mmol/L (98-107); Glucose 90 mg/dL (74-99); Magnesium 1.9 mg/dL (1.6-2.3); Non-African American GFR(CKD) >90 (>60 ml/min/1.73 sqM); Phosphorus 4.3 mg/dL (2.5-4.5); Sodium 138 mmol/L (137-145); Total Bilirubin 0.5 mg/dL (0.2-1.3); Total Protein 7.1 g/dL (6.3-8.2)
--- NOTE | 2022-11-08 00:29 | XR ---
EXAMINATION TYPE: XR chest 1V portable DATE OF EXAM: 11/08/2022 COMPARISON: 08/26/2022 HISTORY: Chest pain TECHNIQUE: Single view FINDINGS: Heart is normal. Lungs are clear of consolidation. There are no hilar masses. There are martell e mild interstitial density left lung base. There are chest leads. IMPRESSION: Inspiration decreased compared to old exam. Minimal interstitial density left lower lobe is a change compared to old exam. No heart failure.
[2022-11-08 00:36] LABS: Potassium 4.6 mmol/L (3.5-5.1)
[2022-11-08 02:15] VITALS: PULSE 54; RESP 18
== END 2022-11-08 02:56 | disposition home or self-care (01) ==
LOC: EC 23:28
DX: R06.00 Dyspnea, unspecified (principal); R07.9 Chest pain, unspecified; F17.200 Nicotine dependence, unspecified, uncomplicated; F12.90 Cannabis use, unspecified, uncomplicated; Z91.030 Bee allergy status; Z91.048 Other nonmedicinal substance allergy status; Z59.00 Homelessness unspecified
CPT/HCPCS: 36415; 71045; 80053; 83735; 84100; 84484; 85025; 93005; 96360; 99285

== ENCOUNTER 2023-02-17 23:23 | Emergency (ER) | payer OTHER ==
[2023-02-17 23:27] VITALS: BP 150/73; PULSE 73; RESP 20; TEMP 98.4
[2023-02-17 23:28] LABS: Glucose,Whole Blood 91 mg/dL (70-110)
[2023-02-17 23:58] LABS: Basophils # (A) 0.1 k/uL (0-0.2); Basophils % (A) 1 %; Eosinophils # (A) 0.3 k/uL (0-0.7); Eosinophils % (A) 4 %; HCT 48.5 % (39.0-53.0); HGB 15.1 gm/dL (13.0-17.5); Lymphocytes # (A) 2.4 k/uL (1.0-4.8); Lymphocytes % (A) 30 %; MCHC 31.1 g/dL (31.0-37.0); MCV 93.3 fL (80.0-100.0); Mean Platelet Volume 7.1; Monocytes # (A) 0.4 k/uL (0-1.0); Monocytes % (A) 5 %; Neutrophils # (A) 4.6 k/uL (1.3-7.7); Neutrophils % (A) 58 %; Platelet Count 354 k/uL (150-450); RBC 5.19 m/uL (4.30-5.90); RDW 13.7 % (11.5-15.5); WBC 7.9 k/uL (3.8-10.6)
[2023-02-18 00:15] LABS: ALT 16 U/L (4-49); AST 36 U/L (17-59); African American GFR (CKD) >90 (>60 ml/min/1.73 sqM); Albumin 4.9 g/dL (3.5-5.0); Alkaline Phosphatase 127 U/L (38-126); Anion Gap 12 mmol/L; Blood Urea Nitrogen 14 mg/dL (9-20); Calcium 9.8 mg/dL (8.4-10.2); Carbon Dioxide 22 mmol/L (22-30); Chloride 106 mmol/L (98-107); Glucose 93 mg/dL (74-99); Non-African American GFR(CKD) >90 (>60 ml/min/1.73 sqM); Sodium 140 mmol/L (137-145); Total Protein 8.4 g/dL (6.3-8.2)
== END 2023-02-18 01:54 | disposition left against medical advice (07) ==
LOC: EC 23:23
DX: Z53.21 Procedure and treatment not carried out due to patient leaving prior to being seen by health care provider (principal)
CPT/HCPCS: 36415; 80053; 84484; 85025; 93005; 99499

== ENCOUNTER 2023-10-11 13:29 | Emergency (ER) | payer OTHER ==
[2023-10-11] MEDS ORDERED: AMOXIC-POT CLAV 875-125MG 1 EACH TAB PO STA (14:42)
[2023-10-11] MEDS ORDERED: Acetaminophen-Codeine 300-30mg TAB PO STA (14:42)
[2023-10-11] MEDS ORDERED: ACET/COD 300 MG/30 MG STARTER PACK 6 TAB BTL PO STA (14:42)
--- NOTE | 2023-10-11 14:44 | ED ---
ENT HPI - General Chief complaint: Dental/Oral Stated complaint: R Face Swollen, Abscess Tooth Time Seen by Provider: 10/11/23 14:18 Source: patient, RN notes reviewed, old records reviewed Mode of arrival: ambulatory Limitations: no limitations - History of Present Illness Initial comments: This is a 53-year-old male to the emergency department for evaluation of dental pain with history of dental disease, patient's complaining of some significant facial swelling but no fevers no other complaints didn't request pain control and antibiotics MD complaint: tooth pain -: days(s) Location: tooth # Severity: severe Severity scale (1-10): 8 Consistency: constant Improves with: none Worsens with: none Context- Dental: history of dental caries Associated Symptoms: gum swelling, toothache - Related Data Home Medications Medication Instructions Recorded Confirmed Ergocalciferol [Vitamin D2 (1250 1,250 mcg PO QMONTHLY 11/04/21 11/04/21 Mcg = 29929 Iu)] Previous Rx's Medication Instructions Recorded Ibuprofen [Motrin] 600 mg PO Q8HR PRN #30 tab 06/13/22 LORazepam [Ativan] 1 mg PO BID 3 Days #6 tab 08/18/22 Venlafaxine HCl ER [Effexor XR] 75 mg PO DAILY 30 Days cap 08/18/22 traZODone HCL [Desyrel] 200 mg PO HS 30 Days tab 08/18/22 Amoxic-Pot Clav 875-125Mg 1 tab PO Q12HR #20 tablet 10/11/23 [Augmentin 875-125] Allergies Allergy/AdvReac Type Severity Reaction Status Date / Time bee venom protein (honey bee) Allergy Anaphylaxis Verified 10/11/23 13:38 horseradish Allergy Anaphylaxis Verified 10/11/23 13:38 venom-wasp Allergy Anaphylaxis Verified 10/11/23 13:38 Review of Systems ROS Statement: Those systems with pertinent positive or pertinent negative responses have been documented in the HPI. ROS Other: All systems not noted in ROS Statement are negative. 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 Past Anesthesia/Blood Transfusion Reactions: No Reported Reaction Additional Past Anesthesia/Blood Transfusion Reaction / Comment(s): Pt has never had general/spinal anesthesia Past Psychological History: Anxiety, Bipolar, Depression, PTSD, Schizoaffective Disorder, Schizophrenia Smoking Status: Current every day smoker Past Alcohol Use History: None Reported Past Drug Use History: Marijuana - Past Family History Mother Family Medical History: CVA/TIA, Diabetes Mellitus, Myocardial Infarction ([place]) Father Additional Family Medical History / Comment(s): Emphesema General Exam Limitations: no limitations General appearance: alert, in no apparent distress Head exam: Present: atraumatic, normocephalic, normal inspection Eye exam: Present: normal appearance, PERRL, EOMI. Absent: scleral icterus, conjunctival injection, periorbital swelling ENT exam: Present: normal exam, mucous membranes moist Neck exam: Present: normal inspection. Absent: tenderness, meningismus, lymphadenopathy Respiratory exam: Present: normal lung sounds bilaterally. Absent: respiratory distress, wheezes, rales, rhonchi, stridor Cardiovascular Exam: Present: regular rate, normal rhythm, normal heart sounds. Absent: systolic murmur, diastolic murmur, rubs, gallop, clicks GI/Abdominal exam: Present: soft, normal bowel sounds. Absent: distended, tenderness, guarding, rebound, rigid Extremities exam: Present: normal inspection, full ROM, normal capillary refill. Absent: tenderness, pedal edema, joint swelling, calf tenderness Back exam: Present: normal inspection Neurological exam: Present: alert, oriented X3, CN II-XII intact Psychiatric exam: Present: normal affect, normal mood Skin exam: Present: warm, dry, intact, normal color. Absent: rash Course Vital Signs 10/11/23 10/11/23 13:36 15:01 Temperature 97.8 F 99.1 F Pulse Rate 62 64 Respiratory 20 18 Rate Blood Pressure 119/68 112/68 O2 Sat by Pulse 99 97 Oximetry - Reevaluation(s) Reevaluation #1: Medical record is reviewed Reevaluation #2: Patient symptoms are improved Reevaluation #3: Patient informed results and questions answered Reevaluation #4: Was pt. sent in by a medical professional or institution (, PA, RESOURCE SPECIALIST TEACHER, urgent care, hospital, or snf...) When possible be specific @ -no Did you speak to anyone other than the patient for history (EMS, parent, family, police, friend...)? What history was obtained from this source @ -no Did you review nursing and triage notes (agree or disagree)? Why? @ -agree Are old charts reviewed (outside hosp., previous admission, EMS record, old EKG, old radiological studies, urgent care reports/EKG's, snf records)? Report findings @ -yes Differential Diagnosis (chest pain, altered mental status, abdominal pain women, abdominal pain men, vaginal bleeding, weakness, fever, dyspnea, syncope, headache, dizziness, GI bleed, back pain, seizure, CVA, palpatations, mental health, musculoskeletal)? @ -prior EKG interpreted by me (3pts min.). @ -no X-rays interpreted by me (1pt min.). @ -no CT interpreted by me (1pt min.). @ -no U/S interpreted by me (1pt. min.). @ -no What testing was considered but not performed or refused? (CT, X-rays, U/S, labs)? Why? @ -none What meds were considered but not given or refused? Why? @ -none Did you discuss the management of the patient with other professionals (professionals i.e. , PA, RESOURCE SPECIALIST TEACHER, lab, RT, psych nurse, manager social, stock transfer clerk, teacher, access control officer, pillowcase folder)? Give summary @ -no Was smoking cessation discussed for >3mins.? @ -no Was critical care preformed (if so, how long)? @ -no Were there social determinants of health that impacted care today? How? (Homelessness, low income, unemployed, alcoholism, drug addiction, transportation, low edu. Level, literacy, decrease access to med. care, snf, rehab)? @ -none Was there de-escalation of care discussed even if they declined (Discuss DNR or withdrawal of care, Hospice)? DNR status @ -no What co-morbidities impacted this encounter? (DM, HTN, Smoking, COPD, CAD, Cancer, CVA, ARF, Chemo, Hep., AIDS, mental health diagnosis, sleep apnea, morbid obesity)? @ -none Was patient admitted / discharged? Hospital course, mention meds given and route, prescriptions, significant lab abnormalities, going to OR and other pertinent info. @ - 53 male to the emergency department for evaluation of dental pain and dental abscess patient placed on antibiotics and can be discharged home Discharge Undiagnosed new problem with uncertain prognosis? @ -no Drug Therapy requiring intensive monitoring for toxicity (Heparin, Nitro, Insulin, Cardizem)? @ -no Were any procedures done? @ -no Diagnosis/symptom? @ -Dental pain and dental abscess dental caries Acute, or Chronic, or Acute on Chronic? @ -Acute Uncomplicated (without systemic symptoms) or Complicated (systemic symptoms)? @ -Complicated Side effects of treatment? @ -no Exacerbation, Progression, or Severe Exacerbation? @ -exacerbation Poses a threat to life or bodily function? How? (Chest pain, [place], [place], pneumonia, PE, COPD, DKA, ARF, appy, cholecystitis, CVA, Diverticulitis, Homicidal, Suicidal, threat to staff... and all critical care pts) @ -no Medical Decision Making - Medical Decision Making 53 male to the emergency department for evaluation of dental pain and dental abscess patient placed on antibiotics and can be discharged home Disposition Clinical Impression: Dental abscess, Dental caries Disposition: HOME SELF-CARE Condition: Good Instructions (If sedation given, give patient instructions): Dental Abscess (ED), Toothache (ED) Prescriptions: Amoxic-Pot Clav 875-125Mg [Augmentin 875-125] 1 tab PO Q12HR #20 tablet Is patient prescribed a controlled substance at d/c from ED?: No Referrals: Flash Schofield MD [Primary Care Provider] - 1-2 days Time of Disposition: 14:45
[2023-10-11] MEDS: AMOXIC-POT CLAV 875MG STARTER PACK 2 TAB BTL PO STA (14:54)
[2023-10-11 15:20] VITALS: BP 112/68; PULSE 64; RESP 18; TEMP 99.1
== END 2023-10-11 15:13 | disposition home or self-care (01) ==
LOC: EC 13:29
DX: K02.9 Dental caries, unspecified (principal); K04.7 Periapical abscess without sinus; J44.9 Chronic obstructive pulmonary disease, unspecified; I25.2 Old myocardial infarction; Z86.73 Personal history of transient ischemic attack (TIA), and cerebral infarction without residual deficits; F17.200 Nicotine dependence, unspecified, uncomplicated; F12.90 Cannabis use, unspecified, uncomplicated; Z86.59 Personal history of other mental and behavioral disorders; Z91.030 Bee allergy status; Z91.038 Other insect allergy status; Z88.8 Allergy status to other drugs, medicaments and biological substances
CPT/HCPCS: 99283

== ENCOUNTER 2024-04-06 19:43 | Inpatient (IN) | payer BC, MEDICAID, OTHER ==
--- NOTE | 2024-04-07 02:36 | ED ---
General Adult HPI - General Chief complaint: Psychiatric Symptoms Stated complaint: Mental Health Time Seen by Provider: 04/06/24 23:27 Source: patient, RN notes reviewed Mode of arrival: ambulatory Limitations: no limitations - History of Present Illness Initial comments: 54-year-old male presents to the emergency department for evaluation of suicidal ideation. Patient reports that he was recently kicked out of his apartment with his roommates. He states that he got into an argument with his roommates because of this. Patient states that he thought he should come to the emergency department rather than making a "bad decision". He states that he had had thoughts of hurting the other individuals along with himself. He states that he had a plan to overdose on his Xanax. - Related Data Home Medications Medication Instructions Recorded Confirmed Ergocalciferol [Vitamin D2 (1250 1,250 mcg PO QMONTHLY 11/04/21 11/04/21 Mcg = 27285 Iu)] Albuterol Sulfate [Ventolin HFA] 04/07/24 Atorvastatin [Lipitor] 40 mg PO DAILY 04/07/24 04/07/24 Budesonide/Formoterol Fumarate 04/07/24 [Symbicort 160-4.5 Mcg Inhaler] Previous Rx's Medication Instructions Recorded Ibuprofen [Motrin] 600 mg PO Q8HR PRN #30 tab 06/13/22 LORazepam [Ativan] 1 mg PO BID 3 Days #6 tab 08/18/22 Venlafaxine HCl ER [Effexor XR] 75 mg PO DAILY 30 Days cap 08/18/22 traZODone HCL [Desyrel] 200 mg PO HS 30 Days tab 08/18/22 Amoxic-Pot Clav 875-125Mg 1 tab PO Q12HR #20 tablet 10/11/23 [Augmentin 875-125] Allergies Allergy/AdvReac Type Severity Reaction Status Date / Time bee venom protein (honey bee) Allergy Anaphylaxis Verified 04/06/24 20:59 horseradish Allergy Anaphylaxis Verified 04/06/24 20:59 venom-wasp Allergy Anaphylaxis Verified 04/06/24 20:59 Review of Systems ROS Statement: Those systems with pertinent positive or pertinent negative responses have been documented in the HPI. ROS Other: All systems not noted in ROS Statement are negative. 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 Past Anesthesia/Blood Transfusion Reactions: No Reported Reaction Additional Past Anesthesia/Blood Transfusion Reaction / Comment(s): Pt has never had general/spinal anesthesia Past Psychological History: Anxiety, Bipolar, Depression, PTSD, Schizoaffective Disorder, Schizophrenia Smoking Status: Current every day smoker Past Alcohol Use History: None Reported Past Drug Use History: Marijuana - Past Family History Mother Family Medical History: CVA/TIA, Diabetes Mellitus, Myocardial Infarction (PR) Father Additional Family Medical History / Comment(s): Emphesema General Exam Limitations: no limitations General appearance: alert, in no apparent distress Head exam: Present: atraumatic, normocephalic, normal inspection Eye exam: Present: normal appearance, PERRL, EOMI. Absent: scleral icterus, conjunctival injection, periorbital swelling ENT exam: Present: normal exam, mucous membranes moist Respiratory exam: Present: normal lung sounds bilaterally. Absent: respiratory distress, wheezes, rales, rhonchi, stridor Cardiovascular Exam: Present: regular rate, normal rhythm, normal heart sounds. Absent: systolic murmur, diastolic murmur, rubs, gallop, clicks Extremities exam: Present: normal inspection, full ROM, normal capillary refill. Absent: tenderness, pedal edema, joint swelling, calf tenderness Neurological exam: Present: alert, oriented X3 Psychiatric exam: Present: suicidal ideation Skin exam: Present: warm, dry, intact, normal color. Absent: rash Course Vital Signs 04/06/24 04/07/24 20:53 04:59 Temperature 98.4 F 97.8 F Pulse Rate 67 Pulse Rate [ 56 L Pulse Oximetery ] Respiratory 22 18 Rate Blood Pressure 107/64 Blood Pressure 108/64 [Right Arm] O2 Sat by Pulse 100 98 Oximetry Medical Decision Making - Medical Decision Making Was pt. sent in by a medical professional or institution (, PA, RN OTOLARYNGOLOGY, urgent care, hospital, or fdc...) When possible be specific @ -No Did you speak to anyone other than the patient for history (EMS, parent, family, police, friend...)? What history was obtained from this source @ -No Did you review nursing and triage notes (agree or disagree)? Why? @ -I reviewed and agree with nursing and triage notes Were old charts reviewed (outside hosp., previous admission, EMS record, old EKG, old radiological studies, urgent care reports/EKG's, fdc records)? Report findings @ -No old charts were reviewed Differential Diagnosis (chest pain, altered mental status, abdominal pain women, abdominal pain men, vaginal bleeding, weakness, fever, dyspnea, syncope, headache, dizziness, GI bleed, back pain, seizure, CVA, palpatations, mental health, musculoskeletal)? @ -Differential Mental Health Depression, anxiety, bipolar, psychosis, schizophrenia, borderline personality, situational depression, adjustment disorder, behavioral disorder, brain tumor, malingering, substance abuse, encephalopathy, medication reaction, dementia, hy pothyroidism, degenerative neurologic disorder, lupus.... This is not meant to be all-inclusive list EKG interpreted by me (3pts min.). @ -None X-rays interpreted by me (1pt min.). @ -None done CT interpreted by me (1pt min.). @ -None done U/S interpreted by me (1pt. min.). @ -None done What testing was considered but not performed or refused? (CT, X-rays, U/S, labs)? Why? @ -None What meds were considered but not given or refused? Why? @ -None Did you discuss the management of the patient with other professionals (professionals i.e. , PA, RN OTOLARYNGOLOGY, lab, RT, psych nurse, web content & social media manager, concrete paving supervisor, teacher, chief technical officer, family preservation caseworker)? Give summary @ -Management discussed with EPS recommend inpatient treatment Was smoking cessation discussed for >3mins.? @ -No Was critical care preformed (if so, how long)? @ -No Were there social determinants of health that impacted care today? How? ( Homelessness, low income, unemployed, alcoholism, drug addiction, transportation, low edu. Level, literacy, decrease access to med. care, group home, rehab)? @ -No Was there de-escalation of care discussed even if they declined (Discuss DNR or withdrawal of care, Hospice)? DNR status @ -No What co-morbidities impacted this encounter? (DM, HTN, Smoking, COPD, CAD, Cancer, CVA, ARF, Chemo, Hep., AIDS, mental health diagnosis, sleep apnea, morbid obesity)? @ -None Was patient admitted / discharged? Hospital course, mention meds given and route, prescriptions, significant lab abnormalities, going to OR and other pertinent info. @ -Admitted. Patient presented to the emergency department for suicidal ideation. He denies any physical complaints at this time. Patient is medically cleared and evaluated by emergency psychiatric services following this. Inpatient treatment was recommended. Patient will be admitted to psychiatric unit. Undiagnosed new problem with uncertain prognosis? @ -No Drug Therapy requiring intensive monitoring for toxicity (Heparin, Nitro, Insulin, Cardizem)? @ -No Were any procedures done? @ -No Diagnosis/symptom? @ -Suicidal ideation Acute, or Chronic, or Acute on Chronic? @ -Acute Uncomplicated (without systemic symptoms) or Complicated (systemic symptoms)? @ -Complicated Side effects of treatment? @ -No Exacerbation, Progression, or Severe Exacerbation? @ -No Poses a threat to life or bodily function? How? (Chest pain, [place], PR, pneumonia, PE, COPD, DKA, ARF, appy, cholecystitis, CVA, Diverticulitis, Homicidal, Suicidal, threat to staff... and all critical care pts) @ -No - Lab Data Result diagrams: 04/08/24 08:41 04/08/24 08:41 Lab Results 04/07/24 Range/Units 02:23 SARS-CoV-2 (PCR) Not Detected (Not Detectd) Disposition Clinical Impression: Suicidal ideation Disposition: TRANSFER TO PSYCH HOSP/UNIT Condition: Stable Is patient prescribed a controlled substance at d/c from ED?: No
[2024-04-07] MEDS ORDERED: MAG HYDROX/AL HYDROX/SIMETH 355 ML BOTTLE PO PRN (04:07)
[2024-04-07] MEDS ORDERED: MAGNESIUM HYDROXIDE 2,400 MG/30 ML CUP PO PRN (04:07)
[2024-04-07] MEDS ORDERED: IBUPROFEN 600 MG TAB PO PRN (04:07)
[2024-04-07] MEDS ORDERED: haloperidoL 5 MG TAB PO PRN (04:07)
[2024-04-07] MEDS ORDERED: LORazepam 2 MG/ML INJ IM PRN (04:07)
[2024-04-07] MEDS ORDERED: traZODone HCL 50 MG TAB PO PRN (04:07)
[2024-04-07] MEDS ORDERED: HALOPERIDOL LACTATE 5 MG/ML 1 ML VIAL IM PRN (04:07)
[2024-04-07 08:00] LABS: Appearance,Urine Clear (Clear); Bilirubin,Urine Negative (Negative); Blood,Urine Negative (Negative); Color,Urine Colorless; Glucose,Urine (UA) Negative (Negative); Ketones,Urine Negative (Negative); Leukocyte Esterase,Urine Negative (Negative); Nitrite,Urine Negative (Negative); Protein,Urine Negative (Negative); Specific Gravity,Urine 1.009 (1.001-1.035); Urobilinogen,Urine <2.0 mg/dL (<2.0)
[2024-04-07] MEDS: NICOTINE 14MG/24HR PATCH TRANSDERM SCH (09:55)
[2024-04-07 11:35] VITALS: BMI 15.0
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
[2024-04-07 15:15] LABS: Urine Alcohol Negative (Negative)
[2024-04-07 15:16] LABS: Urine Barbiturate Negative (Negative); Urine Cocaine Negative (Negative); Urine Methadone Negative (Negative); Urine Opiates Negative (Negative); Urine Phencyclidine Negative (Negative)
[2024-04-07] MEDS: OLANZapine 5 MG TAB PO SCH (20:42)
[2024-04-07] MEDS: ACETAMINOPHEN TAB 325 MG TAB PO PRN (20:43)
[2024-04-08 09:05] LABS: Basophils # (A) 0.2 k/uL (0-0.2); Basophils % (A) 2 %; Eosinophils # (A) 0.3 k/uL (0-0.7); Eosinophils % (A) 4 %; HCT 48.6 % (39.0-53.0); HGB 14.8 gm/dL (13.0-17.5); Lymphocytes # (A) 3.1 k/uL (1.0-4.8); Lymphocytes % (A) 36 %; MCH 29.5 pg (25.0-35.0); MCHC 30.4 g/dL (31.0-37.0); Mean Platelet Volume 7.2; Monocytes # (A) 0.5 k/uL (0-1.0); Monocytes % (A) 6 %; Neutrophils # (A) 4.4 k/uL (1.3-7.7); Neutrophils % (A) 50 %; Platelet Count 325 k/uL (150-450); RBC 5.01 m/uL (4.30-5.90); RDW 14.4 % (11.5-15.5); WBC 8.7 k/uL (3.8-10.6)
[2024-04-08 09:19] LABS: ALT 14 U/L (4-49); AST 23 U/L (17-59); African American GFR (CKD) >90 (>60 ml/min/1.73 sqM); Albumin 4.4 g/dL (3.5-5.0); Alkaline Phosphatase 96 U/L (38-126); Anion Gap 5 mmol/L; Blood Urea Nitrogen 21 mg/dL (9-20); Calcium 9.6 mg/dL (8.4-10.2); Carbon Dioxide 28 mmol/L (22-30); Chloride 105 mmol/L (98-107); Glucose 95 mg/dL (74-99); Non-African American GFR(CKD) >90 (>60 ml/min/1.73 sqM); Potassium 4.2 mmol/L (3.5-5.1); Sodium 138 mmol/L (137-145); Total Bilirubin 0.6 mg/dL (0.2-1.3); Total Protein 7.1 g/dL (6.3-8.2)
--- NOTE | 2024-04-08 12:52 | P.PN ---
Subjective Progress Note Date: 04/08/24 Principal diagnosis: Schizophrenia Constant marijuana use Past medications he says that the [facility] has thrown everything at him and nothing works all that well. The only one he remembers that he took was Abilify which he thought made his heart goal too fast he said the small dose of Seroquel last night he tolerated well and slept well feels a little less anxious today. He's been trying to figure out what he might do he has 2 friends one might let him stay in a tent in his backyard and the other 2 might take him in but they have no landline and he doesn't have his phone so he doesn't know what their telephone as he would have to go to the house and ask. But at least she is thinking in terms of options Symptoms: he never has manic high what he has is agitation anger and violence and other times where he is depressed also he'll feel paranoid that everybody is plotting against him. On mental status exam, he is alert , came to talk to me readily, although he was curled up in his room in the middle of the day doing nothing. He has gotten some closely feels better about that. He is oriented to where he is. When I asked him the name the [place] he said [place], [place], [place], [place] and couldn't remember [place], which is right outside the window. When I asked him the name the Presidents he couldn't remember the current president and he got Obama , he could not spell world backward he got DROW , for cats and snakes he said they both hissed and he couldn't think of anything else similar, he did not seem to be currently impaired by pot or having anything else impairing, he just doesn't think very well. When I asked him to subtract 7 from 100 and he said 600, he did pretty well on the "grass is greener on the other side of the fence." he said, " keep moving forward" Diagnosis: Schizoaffective disorder bipolar type Constant marijuana use Assessment the patient became hopeless and suicidal mostly because of social s upport issues his mom is in a fpc can't take him and his sister the tiny place and can't take him in he has nobody else to turn to and is thrown out by his roommates. On top of that he has not been taking his medications for mood symptoms psychosis. He says that Seroquel helped some but doesn't last a full day. He seems to be less homeless and feels that the Seroquel is helpful Plan: No change in medication. Objective - Vital Signs Vital signs: Vital Signs Temp 97.4 F L 04/08/24 06:30 Pulse 61 04/08/24 06:30 Resp 14 04/08/24 06:30 BP 122/59 04/08/24 06:30 Pulse Ox 98 04/07/24 04:59 FiO2 Intake & Output 04/07/24 04/08/24 04/08/24 18:59 06:59 18:59 Weight 53.1 kg - Labs CBC & Chem 7: 04/08/24 08:41 04/08/24 08:41 Labs: Abnormal Lab Results - Last 24 Hours (Table) 04/07/24 04/08/24 04/08/24 Range/Units 07:50 08:41 08:41 MCHC 30.4 L (31.0-37.0) g/dL BUN 21 H (9-20) mg/dL U Cannabinoids Screen Positive A (Negative)
[2024-04-08] MEDS: LORazepam 1 MG TAB PO PRN (17:27)
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
[2024-04-09 07:05] VITALS: RESP 16
[2024-04-09] MEDS ORDERED: hydrOXYzine HCL 25 MG TAB PO PRN (12:01)
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
[2024-04-10 07:01] VITALS: BP 111/74; PULSE 70; TEMP 98
[2024-04-10] MEDS: ATORVASTATIN 20 MG TAB PO SCH (09:37)
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
== END 2024-04-10 14:21 | disposition home or self-care (01) | DRG 750 ==
LOC: EC 19:43 → 3MHU 04-07 04:04
PROVIDERS: ADMIT Psychiatry & Neurology Psychiatry; ATTEND Psychiatry & Neurology Psychiatry
DX: F25.0 Schizoaffective disorder, bipolar type (principal); F43.10 Post-traumatic stress disorder, unspecified; F12.10 Cannabis abuse, uncomplicated; F17.200 Nicotine dependence, unspecified, uncomplicated; I25.2 Old myocardial infarction; R45.851 Suicidal ideations; Z79.51 Long term (current) use of inhaled steroids; Z86.73 Personal history of transient ischemic attack (TIA), and cerebral infarction without residual deficits; G43.909 Migraine, unspecified, not intractable, without status migrainosus; Z59.00 Homelessness unspecified; Z11.52 Encounter for screening for COVID-19; Z86.79 Personal history of other diseases of the circulatory system; Z79.899 Other long term (current) drug therapy
CPT/HCPCS: 80053; 80306; 81003; 82075; 83036; 84443; 85025; 87635; 99285

== ENCOUNTER 2024-04-13 02:24 | Emergency (ER) | payer BC ==
[2024-04-13 02:38] VITALS: RESP 16; TEMP 97.8
--- NOTE | 2024-04-13 04:09 | ED ---
General Adult HPI - General Chief complaint: Back Pain/Injury Stated complaint: leg weakness, headache, back pain Time Seen by Provider: 04/13/24 03:21 Source: patient Mode of arrival: ambulatory Limitations: no limitations - History of Present Illness Initial comments: Dictation was produced using [employer] dictation software. please excuse any grammatical, word or spelling errors. Chief Complaint:-54-year-old male presents with atraumatic back pain History of Present Illness: Patient is a 54-year-old male he has past medical history of CVA, stroke, seizure, schizoaffective disorder presents to the ER for atraumatic back pain. Patient states that he has had back pain for last 3 to 4 days. Patient denies any trauma. Denies any radiation of symptoms. States that it is to his lower midline back. No fevers. No loss of bowel or bladder control. Denies any saddle anesthesia. The ROS documented in this emergency department record has been reviewed and confirmed by me. Those systems with pertinent positive or negative responses have been documented in the HPI. All other systems are other negative and/or noncontributory. - Related Data Home Medications Medication Instructions Recorded Confirmed Ergocalciferol [Vitamin D2 (1250 1,250 mcg PO QMONTHLY 11/04/21 11/04/21 Mcg = 61878 Iu)] Albuterol Sulfate [Ventolin HFA] 04/07/24 Atorvastatin [Lipitor] 40 mg PO DAILY 04/07/24 04/07/24 Budesonide/Formoterol Fumarate 04/07/24 [Symbicort 160-4.5 Mcg Inhaler] Previous Rx's Medication Instructions Recorded Ibuprofen [Motrin] 600 mg PO Q8HR PRN #30 tab 06/13/22 Venlafaxine HCl ER [Effexor XR] 75 mg PO DAILY 30 Days cap 08/18/22 traZODone HCL [Desyrel] 200 mg PO HS 30 Days tab 08/18/22 Amoxic-Pot Clav 875-125Mg 1 tab PO Q12HR #20 tablet 10/11/23 [Augmentin 875-125] haloperidoL [Haldol] 5 mg PO QID PRN tab 04/10/24 hydrOXYzine HCL [Atarax] 25 mg PO TID PRN 15 Days #45 tab 06/18/24 Allergies Allergy/AdvReac Type Severity Reaction Status Date / Time bee venom protein (honey bee) Allergy Anaphylaxis Verified 04/13/24 02:38 horseradish Allergy Anaphylaxis Verified 04/13/24 02:38 venom-wasp Allergy Anaphylaxis Verified 04/13/24 02:38 Review of Systems ROS Statement: Those systems with pertinent positive or pertinent negative responses have been documented in the HPI. ROS Other: All systems not noted in ROS Statement are negative. 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 Past Anesthesia/Blood Transfusion Reactions: No Reported Reaction Additional Past Anesthesia/Blood Transfusion Reaction / Comment(s): Pt has never had general/spinal anesthesia Past Psychological History: Anxiety, Bipolar, Depression, PTSD, Schizoaffective Disorder, Schizophrenia Smoking Status: Current every day smoker Past Alcohol Use History: None Reported Past Drug Use History: Marijuana - Past Family History Mother Family Medical History: CVA/TIA, Diabetes Mellitus, Myocardial Infarction ([place]) Father Family Medical History: Unable to Obtain Additional Family Medical History / Comment(s): Emphesema General Exam - General Exam Comments Initial Comments: PHYSICAL EXAM: General Impression: Alert and oriented x3, not in acute distress HEENT: Normocephalic atraumatic, extra-ocular movements intact, pupils equal and reactive to light bilaterally, mucous membranes moist. Cardiovascular: Heart regular rate and rhythm Chest: Able to complete full sentences, no retractions, no tachypnea Abdomen: abdomen soft, non-tender, non-distended, no organomegaly Musculoskeletal: Pulses present and equal in all extremities, no peripheral edema Motor: no focal deficits noted Neurological: CN II-XII grossly intact, no focal motor or sensory deficits noted Skin: Intact with no visualized rashes Psych: Normal affect and mood Limitations: no limitations Course Vital Signs 04/13/24 02:36 Temperature 97.8 F Pulse Rate 85 Respiratory 16 Rate Blood Pressure 126/84 O2 Sat by Pulse 98 Oximetry Medical Decision Making - Medical Decision Making Was pt. sent in by a medical professional or institution (GALEN Marroquin, CHARGE LPN, urgent care, hospital, or fdc...) When possible be specific @ -No Did you speak to anyone other than the patient for history (EMS, parent, family, police, friend...)? What history was obtained from this source @ -No Did you review nursing and triage notes (agree or disagree)? Why? @ -I reviewed and agree with nursing and triage notes Were old charts reviewed (outside hosp., previous admission, EMS record, old EKG, old radiological studies, urgent care reports/EKG's, fdc records)? Report findings @ -No old charts were reviewed Differential Diagnosis (chest pain, altered mental status, abdominal pain women, abdominal pain men, vaginal bleeding, musculoskeletal, weakness, fever, dyspnea, syncope, headache, dizziness, GI bleed, back pain, seizure, CVA, palpatations, mental health)? @ -Differential Back Pain: Strain, zoster, cauda equina syndrome, epidural abscess, vertebral osteomyelitis, discitis, fracture, subluxation, disc herniation, DJD, spinal stenosis, dissection, AAA, pancreatitis, peptic ulcer disease, pyelonephritis, kidney stone, this is not meant to be an all-inclusive list. EKG interpreted by me (3pts min.). @ -None done X-rays interpreted by me (1pt min.). @ -None done CT interpreted by me (1pt min.). @ -None done U/S interpreted by me (1pt. min.). @ -None done What testing was considered but not performed or refused? (CT, X-rays, U/S, labs)? Why? @ -None What meds were considered but not given or refused? Why? @ -None Did you discuss the management of the patient with other professionals (professionals i.e. GALEN Marroquin, CHARGE LPN, lab, RT, psych nurse, child protective services social worker, software quality assurance engineer, te acher, special weapons and tactics officer, director of casework department)? Give summary @ -No Was smoking cessation discussed for >3mins.? @ -No Was critical care preformed (if so, how long)? @ -No Were there social determinants of health that impacted care today? How? (Homelessness, low income, unemployed, alcoholism, drug addiction, transportation, low edu. Level, literacy, decrease access to med. care, senior care, rehab)? @ -No Was there de-escalation of care discussed even if they declined (Discuss DNR or withdrawal of care, Hospice)? DNR status @ -No What co-morbidities impacted this encounter? (DM, HTN, Smoking, COPD, CAD, C ancer, CVA, ARF, Chemo, Hep., AIDS, mental health diagnosis, sleep apnea, morbid obesity)? @ -None Was patient admitted / discharged? Hospital course, mention meds given and route, prescriptions, significant lab abnormalities, going to OR and other pertinent info. @ -54-year-old male with atraumatic back pain. Vital signs stable. Patient has no high risk features. Patient ambulatory with no complications. Requesting food. Patient tolerating food at bedside without any complications. Patient given analgesics and discharged. Undiagnosed new problem with uncertain prognosis? @ -No Drug Therapy requiring intensive monitoring for toxicity (Heparin, Nitro, Insulin, Cardizem)? @ -No Were any procedures done? @ -No Diagnosis/symptom? Acute, or Chronic, or Acute on Chronic? Uncomplicated (without systemic symptoms) or Complicated (systemic symptoms)? @ -Back strain Side effects of treatment? @ -No Exacerbation, Progression, or Severe Exacerbation? @ -No Poses a threat to life or bodily function? How? (Chest pain, [place], [place], pneumonia, PE, COPD, DKA, ARF, appy, cholecystitis, CVA, Diverticulitis, Homicidal, Suicidal, threat to staff... and all critical care pts) @ -No Disposition Clinical Impression: Mechanical back pain Disposition: HOME SELF-CARE Condition: Good Instructions (If sedation given, give patient instructions): Acute Low Back Pain (ED) Is patient prescribed a controlled substance at d/c from ED?: No Referrals: Flash Schofield MD [Primary Care Provider] - 1-2 days Time of Disposition: 04:09
[2024-04-13] MEDS: traMADol 50 MG STARTER PACK 3 TAB BTL PO STA (04:15)
[2024-04-13] MEDS: HYDROcodone/APAP 5-325MG 1 EACH TAB PO STA (04:17)
[2024-04-13 04:38] VITALS: BP 94/52; PULSE 57
== END 2024-04-13 04:19 | disposition home or self-care (01) ==
LOC: EC 02:24
DX: S39.012A Strain of muscle, fascia and tendon of lower back, initial encounter (principal); F17.200 Nicotine dependence, unspecified, uncomplicated; Z91.030 Bee allergy status; Z91.038 Other insect allergy status; Z91.09 Other allergy status, other than to drugs and biological substances; Z86.73 Personal history of transient ischemic attack (TIA), and cerebral infarction without residual deficits; X58.XXXA Exposure to other specified factors, initial encounter
CPT/HCPCS: 99283

== ENCOUNTER 2024-05-04 23:57 | Inpatient (IN) | payer MEDICAID, OTHER ==
--- NOTE | 2024-05-05 01:19 | ED ---
Psych HPI - General Chief Complaint: Psychiatric Symptoms Stated Complaint: Mental health Time Seen by Provider: 05/05/24 00:07 Source: patient Mode of arrival: ambulatory - History of Present Illness Initial Comments: 54-year-old male presents emergency department reporting suicidal ideations. Patient states that he is hopeless and has plans of cutting his wrists. He denies any attempt at harming himself. He does have a history of depression. Denies alcohol or drug use. No other alleviating, precipitating or modifying factors - Related Data Home Medications Medication Instructions Recorded Confirmed Ergocalciferol [Vitamin D2 (1250 1,250 mcg PO QMONTHLY 11/04/21 05/10/24 Mcg = 32015 Iu)] Albuterol Sulfate [Ventolin HFA] 1 - 2 puff INHALATION Q6H PRN 04/07/24 05/10/24 Atorvastatin [Lipitor] 40 mg PO HS 04/07/24 05/10/24 Budesonide/Formoterol Fumarate 2 puff INHALATION RT-BID 04/07/24 05/10/24 [Symbicort 160-4.5 Mcg Inhaler] HYDROcodone/APAP 5-325MG [[place] 1 tab PO TID PRN 05/05/24 05/10/24 5-325] Previous Rx's Medication Instructions Recorded Mirtazapine [Remeron] 15 mg PO HS 30 Days #30 tab 05/09/24 Nicotine 14Mg/24Hr Patch [Habitrol] 1 patch TRANSDERM DAILY 14 Days 05/09/24 #14 patch Sertraline [Zoloft] 50 mg PO DAILY 30 Days #30 tab 05/09/24 Allergies Allergy/AdvReac Type Severity Reaction Status Date / Time bee venom protein (honey bee) Allergy Anaphylaxis Verified 05/10/24 08:17 horseradish Allergy Anaphylaxis Verified 05/10/24 08:17 venom-wasp Allergy Anaphylaxis Verified 05/10/24 08:17 Review of Systems ROS Statement: Those systems with pertinent positive or pertinent negative responses have been documented in the HPI. ROS Other: All systems not noted in ROS Statement are negative. 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 Past Anesthesia/Blood Transfusion Reactions: No Reported Reaction Additional Past Anesthesia/Blood Transfusion Reaction / Comment(s): Pt has never had general/spinal anesthesia Past Psychological History: Anxiety, Bipolar, Depression, PTSD, Schizoaffective Disorder, Schizophrenia Smoking Status: Current every day smoker Past Alcohol Use History: None Reported Past Drug Use History: Marijuana - Past Family History Mother Family Medical History: CVA/TIA, Diabetes Mellitus, Myocardial Infarction (NH) Father Family Medical History: Unable to Obtain Additional Family Medical History / Comment(s): [place] General Exam Limitations: no limitations General appearance: alert, in no apparent distress Head exam: Present: atraumatic, normocephalic, normal inspection Eye exam: Present: normal appearance, PERRL, EOMI. Absent: scleral icterus, conjunctival injection, periorbital swelling ENT exam: Present: normal exam, mucous membranes moist Neck exam: Present: normal inspection. Absent: tenderness, meningismus, lymphadenopathy Respiratory exam: Present: normal lung sounds bilaterally. Absent: respiratory distress, wheezes, rales, rhonchi, stridor Cardiovascular Exam: Present: regular rate, normal rhythm, normal heart sounds. Absent: systolic murmur, diastolic murmur, rubs, gallop, clicks GI/Abdominal exam: Present: soft, normal bowel sounds. Absent: distended, tenderness, guarding, rebound, rigid Extremities exam: Present: normal inspection, full ROM, normal capillary refill. Absent: tenderness, pedal edema, joint swelling, calf tenderness Back exam: Present: normal inspection Neurological exam: Present: alert, oriented X3, CN II-XII intact Psychiatric exam: Present: depressed Skin exam: Present: warm, dry, intact, normal color. Absent: rash Course Vital Signs 05/04/24 05/05/24 05/05/24 23:58 00:16 04:17 Temperature 97.4 F L 98.8 F 97.7 F Pulse Rate 72 67 67 Respiratory 20 16 14 Rate Blood Pressure 116/68 101/60 107/63 O2 Sat by Pulse 96 96 97 Oximetry Medical Decision Making - Medical Decision Making Was pt. sent in by a medical professional or institution (Dr., PA, ASSISTANT LOAN PROCESSOR, urgent care, hospital, or fpc...) When possible be specific @ -No Did you speak to anyone other than the patient for history (EMS, parent, family, police, friend...)? What history was obtained from this source @ -No Did you review nursing and triage notes (agree or disagree)? Why? @ -I reviewed and agree with nursing and triage notes Were old charts reviewed (outside hosp., previous admission, EMS record, old EKG, old radiological studies, urgent care reports/EKG's, fpc records)? Report findings @ -No old charts were reviewed Differential Diagnosis (chest pain, altered mental status, abdominal pain women, abdominal pain men, vaginal bleeding, weakness, fever, dyspnea, syncope, headache, dizziness, GI bleed, back pain, seizure, CVA, palpatations, mental health, musculoskeletal)? @ -Differential Mental Health Depression, anxiety, bipolar, psychosis, schizophrenia, borderline personality, situational depression, adjustment disorder, behavioral disorder, brain tumor, malingering, substance abuse, encephalopathy, medication reaction, dementia, hypothyroidism, degenerative neurologic disorder, lupus.... This is not meant to be all-inclusive list EKG interpreted by me (3pts min.). @ -Not done X-rays interpreted by me (1pt min.). @ -None done CT interpreted by me (1pt min.). @ -None done U/S interpreted by me (1pt. min.). @ -None done What testing was considered but not performed or refused? (CT, X-rays, U/S, labs)? Why? @ -None What meds were considered but not given or refused? Why? @ -None Did you discuss the management of the patient with other professionals (professionals i.e. , PA, ASSISTANT LOAN PROCESSOR, lab, RT, psych nurse, director of social services, steel shot header operator, teacher, safety patrol officer, complex case manager)? Give summary @ -EPS nurse Was smoking cessation discussed for >3mins.? @ -No Was critical care preformed (if so, how long)? @ -No Were there social determinants of health that impacted care today? How? (Homelessness, low income, unemployed, alcoholism, drug addiction, transportation, low edu. Level, literacy, decrease access to med. care, senior living, rehab)? @ -No Was there de-escalation of care discussed even if they declined (Discuss DNR or withdrawal of care, Hospice)? DNR status @ -No What co-morbidities impacted this encounter? (DM, HTN, Smoking, COPD, CAD, Cancer, CVA, ARF, Chemo, Hep., AIDS, mental health diagnosis, sleep apnea, morbid obesity)? @ -Depression Was patient admitted / discharged? Hospital course, mention meds given and route, prescriptions, significant lab abnormalities, going to OR and other pertinent info. @ -Upon arrival patient seen and evaluated in room 14. Thorough history and physical exam was performed. Patient is reporting to suicidal ideations. He is evaluated by EPS and will be admitted. Patient was agreeable to this and does sign himself in Undiagnosed new problem with uncertain prognosis? @ -No Drug Therapy requiring intensive monitoring for toxicity (Heparin, Nitro, Insulin, Cardizem)? @ -No Were any procedures done? @ -No Diagnosis/symptom? @ -Acute depression, suicidal ideations Acute, or Chronic, or Acute on Chronic? @ -Acute Uncomplicated (without systemic symptoms) or Complicated (systemic symptoms)? @ -Complicated Side effects of treatment? @ -No Exacerbation, Progression, or Severe Exacerbation? @ -No Poses a threat to life or bodily function? How? (Chest pain, [place], [place], pneumonia, PE, COPD, DKA, ARF, appy, cholecystitis, CVA, Diverticulitis, Homicidal, Suicidal, threat to staff... and all critical care pts) @ -Yes as patient does actively want to harm self - Lab Data Lab Results 05/05/24 Range/Units 02:11 SARS-CoV-2 (PCR) Not Detected (Not Detectd) Disposition Clinical Impression: Depression Disposition: TRANSFER TO PSYCH HOSP/UNIT Condition: Stable
[2024-05-05] MEDS ORDERED: LORazepam 2 MG/ML INJ IM PRN (04:34)
[2024-05-05] MEDS ORDERED: MAG HYDROX/AL HYDROX/SIMETH 355 ML BOTTLE PO PRN (04:34)
[2024-05-05] MEDS ORDERED: IBUPROFEN 600 MG TAB PO PRN (04:34)
[2024-05-05] MEDS ORDERED: MAGNESIUM HYDROXIDE 2,400 MG/30 ML CUP PO PRN (04:34)
[2024-05-05] MEDS ORDERED: ACETAMINOPHEN TAB 325 MG TAB PO PRN (04:34)
[2024-05-05] MEDS ORDERED: HALOPERIDOL LACTATE 5 MG/ML 1 ML VIAL IM PRN (04:43)
[2024-05-05 06:24] LABS: Appearance,Urine Clear (Clear); Bilirubin,Urine Negative (Negative); Blood,Urine Negative (Negative); Color,Urine Colorless; Glucose,Urine (UA) Negative (Negative); Ketones,Urine Negative (Negative); Leukocyte Esterase,Urine Negative (Negative); Nitrite,Urine Negative (Negative); Protein,Urine Negative (Negative); Specific Gravity,Urine 1.006 (1.001-1.035); Urobilinogen,Urine <2.0 mg/dL (<2.0)
[2024-05-05 06:42] LABS: Amphetamine Screen,Urine Not Detected (NotDetected); Barbiturate Screen,Urine Not Detected (NotDetected); Benzodiazepines Screen,Urine Not Detected (NotDetected); Cocaine Screen,Urine Not Detected (NotDetected); Methadone Screen, Urine Not Detected (NotDetected); Opiate Screen,Urine Not Detected (NotDetected); Oxycodone Screen, Urine Not Detected (NotDetected); Phencyclidine Screen,Urine Not Detected (NotDetected); Tricyclic Antidepressant,Urine Not Detected (NotDetected); Urn Cannabinoid Scrn Detected (NotDetected)
[2024-05-05] MEDS: NICOTINE 14MG/24HR PATCH TRANSDERM SCH (09:11)
--- NOTE | 2024-05-05 10:22 | P.HP ---
Psychiatric H&P - . H&P Date: 05/05/24 History & Physical: Allergies Allergy/AdvReac Type Severity Reaction Status Date / Time bee venom protein (honey bee) Allergy Anaphylaxis Verified 05/05/24 00:01 horseradish Allergy Anaphylaxis Verified 05/05/24 00:01 venom-wasp Allergy Anaphylaxis Verified 05/05/24 00:01 Vital Signs Temp 97.2 F L 05/05/24 06:29 Pulse 58 L 05/05/24 06:29 Resp 20 05/05/24 06:29 BP 104/56 05/05/24 06:29 Pulse Ox 99 05/05/24 06:29 FiO2 Intake & Output 05/04/24 05/05/24 05/05/24 18:59 06:59 18:59 Weight 42.5 kg Laboratory Last Values Urine Color Colorless 05/05/24 05:05 Urine Appearance Clear (Clear) 05/05/24 05:05 Urine pH 7.0 (5.0-8.0) 05/05/24 05:05 Ur Specific Mccrory 1.006 (1.001-1.035) 05/05/24 05:05 Urine Protein Negative (Negative) 05/05/24 05:05 Urine Glucose (UA) Negative (Negative) 05/05/24 05:05 Urine Ketones Negative (Negative) 05/05/24 05:05 Urine Blood Negative (Negative) 05/05/24 05:05 Urine Nitrite Negative (Negative) 05/05/24 05:05 Urine Bilirubin Negative (Negative) 05/05/24 05:05 Urine Urobilinogen <2.0 mg/dL (<2.0) 05/05/24 05:05 Ur Leukocyte Esterase Negative (Negative) 05/05/24 05:05 Urine Opiates Screen Not Detected (NotDetected) 05/05/24 05:05 Ur Oxycodone Screen Not Detected (NotDetected) 05/05/24 05:05 Urine Methadone Screen Not Detected (NotDetected) 05/05/24 05:05 Ur Barbiturates Screen Not Detected (NotDetected) 05/05/24 05:05 U Tricyclic Antidepress Not Detected (NotDetected) 05/05/24 05:05 Ur Phencyclidine Scrn Not Detected (NotDetected) 05/05/24 05:05 Ur Amphetamines Screen Not Detected (NotDetected) 05/05/24 05:05 U Methamphetamines Scrn Not Detected (NotDetected) 05/05/24 05:05 U Benzodiazepines Scrn Not Detected (NotDetected) 05/05/24 05:05 Urine Cocaine Screen Not Detected (NotDetected) 05/05/24 05:05 U Marijuana (THC) Screen Detected (NotDetected) H 05/05/24 05:05 SARS-CoV-2 (PCR) Not Detected (Not Detectd) 05/05/24 02:11 05/05/24 10:16 Patient Name: Deangelo Chaudhari Date of : 1970 Patient Status: Inpatient Attending Provider: Ga Garcia Date: 05/05/24 Initialization Date: 05/05/24 01:18 This is exactly dictating the psychiatric assessment on this 54-year-old male with a long history of mental illness Patient reports that he has been hospitalized here on multiple occasions Patient reports that he has been having suicidal ideations and decided to come in for help He reports that he is currently homeless for quite some time Patient also reports that he uses cannabis on a regular basis patient reports that he is extremely tired and wants to sleep and has not had any rest for some time Patient has been just hospitalized and came on the unit about 20 minutes ago Patient did not want to discuss any further about any other symptoms or family history Further details will be collected from the patient when the patient is more cooperative Following exam except from the assessment done regarding his past medical history in the ER past Medical History Past Medical History: COPD, CVA/TIA Additional Past Medical History / Comment(s): CVA 03/2013 with seizure/no resi duals, cerebral aneurysm stable, migraines, homeless Last Myocardial Infarction Date:: History of Any Multi-Drug Resistant Organisms: None Reported Past Surgical History: Heart Catheterization Additional Past Surgical History / Comment(s): pt state no heart cath- previous health documentation shows he has had one. Past Anesthesia/Blood Transfusion Reactions: No Reported Reaction Additional Past Anesthesia/Blood Transfusion Reaction / Comment(s): Pt has never had general/spinal anesthesia Past Psychological History: Anxiety, Bipolar, Depression, PTSD, Schizoaffective Disorder, Schizophrenia Smoking Status: Current every day smoker Past Alcohol Use History: None Reported Past Drug Use History: Marijuana Mental Status Exam Psychomotor Activity: _Normal activity Appearance: _Disheveled appearance dirty looking unkept Speech: _Normal rate and volume Thought Process: _Goal directed Thought Content: _Appropriate content Orientation and Cognition: _Oriented to time and place Mood: _Blunted Affect: _Appropriate affect Suicidal Ideation : _Denies suicidal ideation in the hospital Mental Status Exam Psychomotor Activity: _Normal activity Patient denies any auditory or visual hallucinations Diagnostic impression: Major depressive disorder chronic recurrent with acute exacerbation Cannabis use disorder Plan: dmission recommendations: The patient has been hospitalized on the unit for further evaluation and treatment Therapy will be focused on providing supportive care and improving his coping abilities with a multimodal treatment Patient will also participate on the hansen activities Individual milieu group OT RT PT and pharmacotherapy Patient will be continued on his home medications once clarified from the pharmacy immigration services officer on board for appropriate follow-up and placement recommendations if needed Approximate length of stay would be 7 to 10 days Patient also will be referred for substance use program including psychosocial support system like AA and NA for alcohol and substance use disorders Active Medications Generic Name Dose Route Start Last Admin Trade Name Freq PRN Reason Stop Dose Admin Acetaminophen 650 mg 05/05/24 04:34 Acetaminophen Tab 325 Mg Tab PO Q4HR PRN Mild Pain (Scale 1 to 3) Al Hydroxide/Mg Hydroxide 30 ml 05/05/24 04:34 Mag Hydrox/Al Hydrox/Simeth 355 Ml Bottle PO Q4HR PRN GI Upset Haloperidol 5 mg 05/05/24 04:34 Haloperidol 5 Mg Tab PO Q8HR PRN Agitation or Acute Psychosis Haloperidol Lactate 5 mg 05/05/24 04:43 Haloperidol Lactate 5 Mg/Ml 1 Ml Vial IM Q8HR PRN Agitation or Acute Psychosis Ibuprofen 600 mg 05/05/24 04:34 Ibuprofen 600 Mg Tab PO Q6HR PRN Moderate Pain (Scale 4 to 6) Lorazepam 1 mg 05/05/24 04:34 Lorazepam 1 Mg Tab PO Q8HR PRN Anxiety Lorazepam 1 mg 05/05/24 04:34 Lorazepam 2 Mg/Ml Inj IM Q8HR PRN Severe Agitation Magnesium Hydroxide 2,400 mg 05/05/24 04:34 Magnesium Hydroxide 2,400 Mg/30 Ml Cup PO DAILY PRN Constipation Nicotine 1 patch 05/05/24 09:00 05/05/24 09:11 Nicotine 14mg/24hr Patch TRANSDERM 1 patch DAILY HANNAH Administration
--- NOTE | 2024-05-06 08:47 | P.PN ---
Subjective Progress Note Date: 05/06/24 Patient Name: Deangelo Chaudhari Date of : 1970 Patient Status: Inpatient Attending Provider: Ga Garcia Date: 05/06/24 9:30 Initialization Date: 05/05/24 10:16 Subjective data: The patient was seen chart was reviewed and case discussed with nursing staff Patient had just broken up from sleep and was cooperative and agreed to talk to this story writer Patient states that he is feeling better He says that he slept better States that he feels that he has anxiety and depression are slightly better since she has been in the hospital However he states that he does feel helpless and hopeless from time to time Denies any suicidal ideations or plans at this time Mental Status Exam Psychomotor Activity: _Normal activity Appearance: _Disheveled appearance dirty looking unkept Speech: _Normal rate and volume Thought Process: _Goal directed Thought Content: _Appropriate content Orientation and Cognition: _Oriented to time and place Mood: _Blunted Affect: _Appropriate affect Suicidal Ideation : _Denies suicidal ideation in the hospital Mental Status Exam Psychomotor Activity: _Normal activity Patient denies any auditory or visual hallucinations Diagnostic impression: Major depressive disorder chronic recurrent with acute exacerbation Cannabis use disorder Plan: Admission recommendations: The patient has been hospitalized on the unit for further evaluation and treatment Therapy will be focused on providing supportive care and improving his coping abilities with a multimodal treatment Patient will also participate on the hansen activities Individual milieu group OT RT PT and pharmacotherapy Patient will be continued on his home medications once clarified from the pharmacy financial services sales representative on board for appropriate follow-up and placement recommendations if needed Approximate length of stay would be 7 to 10 days Patient also will be referred for substance use program including psychosocial support system like AA and NA for alcohol and substance use disorders Active Medications Generic Name Dose Route Start Last Admin Trade Name Freq PRN Reason Stop Dose Admin Acetaminophen 650 mg 05/05/24 04:34 Acetaminophen Tab 325 Mg Tab PO Q4HR PRN Mild Pain (Scale 1 to 3) Al Hydroxide/Mg Hydroxide 30 ml 05/05/24 04:34 Mag Hydrox/Al Hydrox/Simeth 355 Ml Bottle PO Q4HR PRN GI Upset Haloperidol 5 mg 05/05/24 04:34 Haloperidol 5 Mg Tab PO Q8HR PRN Agitation or Acute Psychosis Haloperidol Lactate 5 mg 05/05/24 04:43 Haloperidol Lactate 5 Mg/Ml 1 Ml Vial IM Q8HR PRN Agitation or Acute Psychosis Ibuprofen 600 mg 05/05/24 04:34 Ibuprofen 600 Mg Tab PO Q6HR PRN Moderate Pain (Scale 4 to 6) Lorazepam 1 mg 05/05/24 04:34 Lorazepam 1 Mg Tab PO Q8HR PRN Anxiety Lorazepam 1 mg 05/05/24 04:34 Lorazepam 2 Mg/Ml Inj IM Q8HR PRN Severe Agitation Magnesium Hydroxide 2,400 mg 05/05/24 04:34 Magnesium Hydroxide 2,400 Mg/30 Ml Cup PO DAILY PRN Constipation Nicotine 1 patch 05/05/24 09:00 05/05/24 09:11 Nicotine 14mg/24hr Patch TRANSDERM 1 patch DAILY HANNAH Administration Objective - Vital Signs Vital signs: Vital Signs Temp 97.7 F 05/06/24 06:27 Pulse 57 L 05/06/24 06:27 Resp 14 05/06/24 06:27 BP 104/61 05/06/24 06:27 Pulse Ox 100 05/06/24 06:27 FiO2 Intake & Output 05/05/24 05/06/24 05/06/24 18:59 06:59 18:59 Weight 55 kg
[2024-05-06] MEDS: LORazepam 1 MG TAB PO PRN (08:58)
[2024-05-06] MEDS: haloperidoL 5 MG TAB PO PRN (13:48)
[2024-05-07 07:51] VITALS: BMI 14.9
[2024-05-07] MEDS ORDERED: ALBUTEROL INHALER 60 PUFF/8 GM INHALER (MHU) INHALATION PRN (12:09)
[2024-05-07] MEDS ORDERED: ERGOCALCIFEROL 1,250 MCG (50,000 IU) CAPSULE PO SCH (12:15)
--- NOTE | 2024-05-07 12:19 | P.PN ---
Progress Note - Text Progress Note Date: 05/07/24 Interval History: Patient was seen [wandering the hallways] and was directable and agreeable to speak with bond underwriter in the office. He states that his mood is slightly improving. He claims to be sleeping well, His appetite is good. Patient is requesting "the football xanax". [employer] Testing Supervisor told patient that he would not be getting that medication on the unit. At this time patient denies any suicidal ideations, He states that he if he sees a certain person, he has his knife ready to "gut that motherfucker". he was agreeable to start zoloft today for mood/anxiety. Patient denies any auditory, visual hallucinations and denies any paranoia or delusions. Patient denies any side effects from the medications and has been compliant with meds. Mental Status Exam: General Appearance: [Patient appears to be older than stated age is alert, directable, and cooperative. Disheveled appearance, poor hygiene and grooming. Dressed casually. Behavior: Patient is calmly seated without any agitated behavior. Speech: Patient's speech is fluent and nonpressured. Mood/Affect: Mood is ok, affect is congruent and constricted. Suicidality/Homicidality: Patient denies having any suicidal , endorsing homicidal ideation. Perceptions: Patient denies any visual hallucinations and denies any auditory hallucinations Though content/process: There is no evidence of any delusional thought content and thought process is linear , medication seeking. Memory and concentration: AOX3, grossly intact for the purposes of this session Judgment and insight: poor Assessment depressive disorder, unspecified homelessness cannabis use disorder nicotine dependance Plan: -Patient continues to meet criteria for inpatient psychiatric admission for symptom stabilization and safety. Patient has signed [adult voluntary form and] [medication consent] and was placed in patient's chart. -Medications: Zoloft 25mg daily for depression/anxiety -When necessary Ativan and Haldol for agitation/aggression. -NRT - [nicotine patch] -SW on board for discharge planning. Encouraged the patient to participate in milieu. likely discharge in 2-3 days.
[2024-05-07] MEDS: SERTRALINE 25 MG TAB PO SCH (12:56)
[2024-05-07] MEDS: ATORVASTATIN 40 MG TAB PO SCH (20:53)
--- NOTE | 2024-05-07 22:46 | HP ---
HISTORY AND PHYSICAL CHIEF COMPLAINT: Major depression, COPD, general debility, and failure to thrive with malnutrition. HISTORY OF PRESENT ILLNESS: This is another recent admission for this 54-year-old debilitated homeless male. He has been in and out of the hospital lately for depression and suicidal thoughts. REVIEW OF SYSTEMS: He denies headaches, chest pain, abdominal pain, nausea, vomiting, change in bowel habits, urinary issues, etc. Past medical history, family history, personal and social histories are all otherwise unremarkable or noncontributory and unchanged. PHYSICAL EXAMINATION: VITAL SIGNS: Normal. HEAD, EARS, EYES, NOSE, MOUTH, AND THROAT: Normal. CHEST: Demonstrates good breath sounds, but decreased due to his COPD. CARDIAC: Normal sinus rhythm. ABDOMEN: Scaphoid. There are no masses or tenderness. EXTREMITIES: Normal. NEUROLOGICAL: He is intact. ASSESSMENT: He is admitted to the hospital with diagnoses of, 1. Major depression. 2. Suicidal personality. 3. Chronic obstructive pulmonary disease. 4. Opioid abuse. 5. Severe protein-calorie malnutrition. RECOMMENDATIONS: None. Thank you respectfully. MMODL / IJN: [id number] /
[2024-05-08 07:03] VITALS: RESP 16; TEMP 97.6
--- NOTE | 2024-05-08 11:24 | P.PN ---
Progress Note - Text Progress Note Date: 05/08/24 Interval History: Patient was seen wandering the hallways and was directable and agreeable to sp marielena with insurance writer in the office. He states that his mood was a little irritated this morning, due to him not getting an ensure at breakfast. Other than that, he states that his mood is improving. He states that sleep was hard to initiate last night, and is agreeable to try Remeron. He claims his appetite is pretty good. At this time patient denies any suicidal ideations, He states that he if he sees a certain person, he has his knife ready to "gut that motherfucker". he was agreeable to start zoloft today for mood/anxiety. Patient denies any auditory, visual hallucinations and denies any paranoia or delusions. Patient denies any side effects from the medications and has been compliant with meds. Mental Status Exam: General Appearance: [Patient appears to be older than stated age is alert, directable, and cooperative. Disheveled appearance, poor hygiene and grooming. Dressed casually. Behavior: Patient is calmly seated without any agitated behavior. Speech: Patient's speech is fluent and nonpressured. Mood/Affect: Mood is ok, affect is congruent and constricted. imp roving. Suicidality/Homicidality: Patient denies having any suicidal , endorsing homicidal ideation. Perceptions: Patient denies any visual hallucinations and denies any auditory hallucinations Though content/process: There is no evidence of any delusional thought content and thought process is linear Memory and concentration: AOX3, grossly intact for the purposes of this session Judgment and insight: poor/superficial, improving mildly Assessment depressive disorder, unspecified homelessness cannabis use disorder nicotine dependance Plan: -Patient continues to meet criteria for inpatient psychiatric admission for symptom stabilization and safety. Patient has signed [adult voluntary form and medication consent and was placed in patient's chart. -Medications: increase Zoloft 50mg daily for depression/anxiety add Remeron 15mg qhs for sleep -When necessary Ativan and Haldol for agitation/aggression. -NRT -nicotine patch -SW on board for discharge planning. Encouraged the patient to participate in milieu. likely discharge tomorrow
[2024-05-08] MEDS: MIRTAZAPINE 15 MG TAB PO SCH (21:09)
[2024-05-09 06:53] VITALS: BP 133/94; PULSE 109
[2024-05-09] MEDS: SERTRALINE 50 MG TAB PO SCH (08:02)
--- NOTE | 2024-05-09 09:11 | P.DS ---
Providers Date of admission: 05/05/24 04:24 Expected date of discharge: 05/09/24 Attending physician: Ga Garcia MD Consults: 05/05/24 04:34 Consult Physician Routine Consulting Provider: Flash Schofield Consult Reason/Comments: H&P for mental health admission Do you want consulting provider notified?: Yes, Notify in am Primary care physician: Flash Schofield - Discharge Diagnosis(es) (1) Depressive disorder Current Visit: Yes Status: Acute Priority: High (2) Homelessness Current Visit: Yes Status: Acute Priority: Medium (3) Cannabis use disorder Current Visit: Yes Status: Acute Priority: Medium (4) Nicotine dependence Current Visit: Yes Status: Acute Priority: Low Hospital Course: Admission HPI: Admission note was completed by Dr Canela "this is exactly dictating the psychiatric assessment on this 54-year-old male with a long history of mental illness Patient reports that he has been hospitalized here on multiple occasions Patient reports that he has been having suicidal ideations and decided to come in for help He reports that he is currently homeless for quite some time Patient also reports that he uses cannabis on a regular basis patient reports that he is extremely tired and wants to sleep and has not had any rest for some time Patient has been just hospitalized and came on the unit about 20 minutes ago Patient did not want to discuss any further about any other symptoms or family history Further details will be collected from the patient when the patient is more cooperative" Hospital course: Upon admission to the unit patient was directable and agreeable to commence treatment and signed adult voluntary form. Patient got along well with other patients on the unit and followed unit protocol. Patient was compliant with the medications and denied any side effects throughout hospital course. Patient was started on Zoloft increased to dose of 50 mg daily for depression/anxiety, Remeron 15 mg nightly for sleep/mood/anxiety. Patient spoke of his stressors and engaged in therapy both group and individual. Patient was also seen by medical team for history and physical exam. Throughout the course of the hospitalization patient gradually improved with regards to mood, anxiety, sleep and returned back to their baseline level of functioning. On the day of discharge patient denied any suicidal or homicidal ideations intent or plan denied any auditory or visual hallucinations. Patient endorsed wanting to live for his health and his son. The patient denied any access to guns or weapons. Patient denied any paranoia and did not endorse any delusions. Patient does have a significant history of substance abuse and was counseled on abstaining from all substances including alcohol and marijuana. Patient was offered however declined inpatient substance-abuse rehab. Patient elected to do outpatient substance use treatment program through their outpatient provider. Patient was also counseled on the medications and need for regular compliance and was encouraged to follow-up with their outpatient appointment for mental health and also for primary care. Patient wanted to be discharged and stay with a friend in the area with outpatient [facility] follow-up. Mental status exam: General Appearance: Patient appears to be thin, disheveled hair and morales, stated age is alert, pleasant, and cooperative. Patient is in no acute distress and has improved hygiene and grooming Behavior: Patient is calmly seated without any agitated behavior. Speech: Patient's speech is fluent and nonpressured. Mood/Affect: Patient reports their mood is "good", affect is congruent and euthymic. Suicidality/Homicidality: Patient denies having any suicidal or homicidal ideation intent or plan. Perceptions: Patient denies any auditory or visual hallucinations. Though content/process: There is no evidence of any delusional thought content and thought process is linear and goal-directed. More future oriented Memory and concentration: AOX3, grossly intact for the purposes of this session. Can spell "WORLD" backwards correctly. Judgment and insight: Chronically poor, however has improved with guarded prognosis Impression: Depressive disorder unspecified Homelessness Cannabis use disorder Nicotine dependence Plan: -Continue with discharge today as patient has improved and stabilized psychiatrically and is not currently an imminent threat to themself and/or others. Patient will remain at chronically elevated risk for harm to self and/or others due to their impulsivity and substance abuse. -Continue medications: Remeron 15 mg nightly for sleep/mood/anxiety, Zoloft 50 mg daily for mood/anxiety -Patient was counseled on the need for medication compliance and appropriate follow-up at mental health and also primary care for medical issues. Patient verbalized understanding and agreed. -Social work to help coordinate patients discharge today as he will be staying with a friend. also to ensure safe home environment that guns/weapons are either removed from the home or locked away. Social work also to arrange for patients follow up appointments with [facility] for psychiatric care along with follow up with primary care provider. -Patient counseled on abstaining from recreational drugs and marijuana and alcohol. Was informed/educated on the adverse effects on their physical and mental health. Patient verbally agreed and understood. Patient was offered substance abuse treatment however declined at this time. -Patient was instructed to return to the hospital or seek immediate medical care if their psychiatric or medical symptoms do worsen or reoccur. Allergies Allergy/AdvReac Type Severity Reaction Status Date / Time bee venom protein (honey bee) Allergy Anaphylaxis Verified 05/05/24 00:01 horseradish Allergy Anaphylaxis Verified 05/05/24 00:01 venom-wasp Allergy Anaphylaxis Verified 05/05/24 00:01 Laboratory Results Urine Color Colorless 05/05/24 05:05 Urine Appearance Clear (Clear) 05/05/24 05:05 Urine pH 7.0 (5.0-8.0) 05/05/24 05:05 Ur Specific [place] 1.006 (1.001-1.035) 05/05/24 05:05 Urine Protein Negative (Negative) 05/05/24 05:05 Urine Glucose (UA) Negative (Negative) 05/05/24 05:05 Urine Ketones Negative (Negative) 05/05/24 05:05 Urine Blood Negative (Negative) 05/05/24 05:05 Urine Nitrite Negative (Negative) 05/05/24 05:05 Urine Bilirubin Negative (Negative) 05/05/24 05:05 Urine Urobilinogen <2.0 mg/dL (<2.0) 05/05/24 05:05 Ur Leukocyte Esterase Negative (Negative) 05/05/24 05:05 Urine Opiates Screen Not Detected (NotDetected) 05/05/24 05:05 Ur Oxycodone Screen Not Detected (NotDetected) 05/05/24 05:05 Urine Methadone Screen Not Detected (NotDetected) 05/05/24 05:05 Ur Barbiturates Screen Not Detected (NotDetected) 05/05/24 05:05 U Tricyclic Antidepress Not Detected (NotDetected) 05/05/24 05:05 Ur Phencyclidine Scrn Not Detected (NotDetected) 05/05/24 05:05 Ur Amphetamines Screen Not Detected (NotDetected) 05/05/24 05:05 U Methamphetamines Scrn Not Detected (NotDetected) 05/05/24 05:05 U Benzodiazepines Scrn Not Detected (NotDetected) 05/05/24 05:05 Urine Cocaine Screen Not Detected (NotDetected) 05/05/24 05:05 U Marijuana (THC) Screen Detected (NotDetected) H 05/05/24 05:05 SARS-CoV-2 (PCR) Not Detected (Not Detectd) 05/05/24 02:11 Vital Signs Temp 97.6 F 05/08/24 06:34 Pulse 109 H 05/09/24 06:52 Resp 16 05/08/24 06:34 BP 133/94 05/09/24 06:52 Pulse Ox 98 05/08/24 06:34 FiO2 Patient Condition at Discharge: Stable Plan - Discharge Summary Discharge Rx Participant: Yes New Discharge Prescriptions: New Nicotine 14Mg/24Hr Patch [Habitrol] 1 patch TRANSDERM DAILY 14 Days #14 patch Mirtazapine [Remeron] 15 mg PO HS 30 Days #30 tab Sertraline [Zoloft] 50 mg PO DAILY 30 Days #30 tab Continue Budesonide/Formoterol Fumarate [Symbicort 160-4.5 Mcg Inhaler] 2 puff INHALATION DIRECTED HYDROcodone/APAP 5-325MG [[place] 5-325] 1 tab PO DIRECTED PRN PRN Reason: Pain Naproxen [Naprosyn] 500 mg PO DIRECTED PRN PRN Reason: Pain Ergocalciferol [Vitamin D2 (1250 Mcg = 67325 Iu)] 1,250 mcg PO DIRECTED Atorvastatin [Lipitor] 40 mg PO DIRECTED Albuterol Sulfate [Ventolin HFA] 1 - 2 puff INHALATION DIRECTED PRN PRN Reason: Shortness Of Breath Discontinued hydrOXYzine HCL [Atarax] 25 mg PO DIRECTED PRN PRN Reason: Anxiety haloperidoL [Haldol] 5 mg PO DIRECTED PRN PRN Reason: Agitation Or Acute Psychosis Discharge Medication List Ergocalciferol [Vitamin D2 (1250 Mcg = 09614 Iu)] 1,250 mcg PO DIRECTED 11/04/21 [History] Albuterol Sulfate [Ventolin HFA] 1 - 2 puff INHALATION DIRECTED PRN 04/07/24 [History] Atorvastatin [Lipitor] 40 mg PO DIRECTED 04/07/24 [History] Budesonide/Formoterol Fumarate [Symbicort 160-4.5 Mcg Inhaler] 2 puff INHALATION DIRECTED 04/07/24 [History] HYDROcodone/APAP 5-325MG [[place] 5-325] 1 tab PO DIRECTED PRN 05/05/24 [History] Naproxen [Naprosyn] 500 mg PO DIRECTED PRN 05/05/24 [History] Mirtazapine [Remeron] 15 mg PO HS 30 Days #30 tab 05/09/24 [Rx] Nicotine 14Mg/24Hr Patch [Habitrol] 1 patch TRANSDERM DAILY 14 Days #14 patch 05/09/24 [Rx] Sertraline [Zoloft] 50 mg PO DAILY 30 Days #30 tab 05/09/24 [Rx] Follow up Appointment(s)/Referral(s): [facility] [address] [Outside] - 05/10/24 9:30 am (05/10/2024 9:30AM - 10:30AMService: [id number] MILLER 05/21/2024 11:00AM - 12:00PMService: [id number] ) Flash Schofield MD [Primary Care Provider] - 1-2 days
== END 2024-05-09 13:25 | disposition home or self-care (01) | DRG 753 ==
LOC: EC 23:57 → 3MHU 05-05 04:24
PROVIDERS: ADMIT Psychiatry & Neurology Psychiatry; ATTEND Psychiatry & Neurology Psychiatry
DX: F31.30 Bipolar disorder, current episode depressed, mild or moderate severity, unspecified (principal); E43 Unspecified severe protein-calorie malnutrition; R45.851 Suicidal ideations; R62.7 Adult failure to thrive; Z68.1 Body mass index [BMI] 19.9 or less, adult; F11.10 Opioid abuse, uncomplicated; F12.10 Cannabis abuse, uncomplicated; J44.9 Chronic obstructive pulmonary disease, unspecified; Z59.00 Homelessness unspecified; Z11.52 Encounter for screening for COVID-19; Z28.310 Unvaccinated for COVID-19; F43.10 Post-traumatic stress disorder, unspecified; F41.9 Anxiety disorder, unspecified; I25.2 Old myocardial infarction; K59.00 Constipation, unspecified; F17.210 Nicotine dependence, cigarettes, uncomplicated; Z71.6 Tobacco abuse counseling; Z79.51 Long term (current) use of inhaled steroids; Z79.899 Other long term (current) drug therapy; Z86.73 Personal history of transient ischemic attack (TIA), and cerebral infarction without residual deficits; Z59.819 Housing instability, housed unspecified; Z59.12 Inadequate housing utilities; Z59.41 Food insecurity; Z59.82 Transportation insecurity; Z63.8 Other specified problems related to primary support group; Z71.3 Dietary counseling and surveillance; Z71.51 Drug abuse counseling and surveillance of drug abuser
CPT/HCPCS: 80306; 81003; 82075; 87635; 99285

== ENCOUNTER 2024-05-10 01:08 | Observation (INO) | payer OTHER ==
[2024-05-10 01:12] VITALS: TEMP 97.4
--- NOTE | 2024-05-10 01:46 | ED ---
Chest Pain HPI - General Chief Complaint: Chest Pain Stated Complaint: Chest Pain, SOB Time Seen by Provider: 05/10/24 01:45 Source: patient, RN notes reviewed Mode of arrival: ambulatory Limitations: no limitations - History of Present Illness Initial Comments: 54-year-old male presented to the ER with a chief complaint of chest pain. Reports pain started around 4 PM and has been persistent. He describes it as a sharp pain. He also is reporting mild shortness of breath. He does report a history of an [place] denies any current stents. He denies any exacerbation with palpation of chest or movement of upper extremities. He denies any dizziness, lightheadedness, nausea, vomiting, fevers, cough, congestion or peripheral edema. - Related Data Home Medications Medication Instructions Recorded Confirmed Ergocalciferol [Vitamin D2 (1250 1,250 mcg PO DIRECTED 11/04/21 05/05/24 Mcg = 98722 Iu)] Albuterol Sulfate [Ventolin HFA] 1 - 2 puff INHALATION DIRECTED 04/07/24 05/05/24 PRN Atorvastatin [Lipitor] 40 mg PO DIRECTED 04/07/24 05/05/24 Budesonide/Formoterol Fumarate 2 puff INHALATION DIRECTED 04/07/24 05/05/24 [Symbicort 160-4.5 Mcg Inhaler] HYDROcodone/APAP 5-325MG [[place] 1 tab PO DIRECTED PRN 05/05/24 05/05/24 5-325] Naproxen [Naprosyn] 500 mg PO DIRECTED PRN 05/05/24 05/05/24 Previous Rx's Medication Instructions Recorded Mirtazapine [Remeron] 15 mg PO HS 30 Days #30 tab 05/09/24 Nicotine 14Mg/24Hr Patch [Habitrol] 1 patch TRANSDERM DAILY 14 Days 05/09/24 #14 patch Sertraline [Zoloft] 50 mg PO DAILY 30 Days #30 tab 05/09/24 Allergies Allergy/AdvReac Type Severity Reaction Status Date / Time bee venom protein (honey bee) Allergy Anaphylaxis Verified 05/10/24 01:12 horseradish Allergy Anaphylaxis Verified 05/10/24 01:12 venom-wasp Allergy Anaphylaxis Verified 05/10/24 01:12 Review of Systems ROS Statement: Those systems with pertinent positive or pertinent negative responses have been documented in the HPI. ROS Other: All systems not noted in ROS Statement are negative. EKG Findings - EKG Comments: EKG Findings:: EKG taken at 1: 21 showing a normal sinus rhythm with no acute ST segment or T wave abnormalities. Normal axis. Ventricular rate 61, AL interval 144, QRS duration 92, QT/QTc 361/364. 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 Past Anesthesia/Blood Transfusion Reactions: No Reported Reaction Additional Past Anesthesia/Blood Transfusion Reaction / Comment(s): Pt has never had general/spinal anesthesia Past Psychological History: Anxiety, Bipolar, Depression, PTSD, Schizoaffective Disorder, Schizophrenia Smoking Status: Current every day smoker Past Alcohol Use History: None Reported Past Drug Use History: Marijuana - Past Family History Mother Family Medical History: CVA/TIA, Diabetes Mellitus, Myocardial Infarction ([place]) Father Family Medical History: Unable to Obtain Additional Family Medical History / Comment(s): Emphesema General Exam Limitations: no limitations General appearance: alert, in no apparent distress Respiratory exam: Present: normal lung sounds bilaterally (Diminished breath sounds bilaterally). Absent: respiratory distress, wheezes, rales, rhonchi, stridor Cardiovascular Exam: Present: regular rate, normal rhythm, normal heart sounds. Absent: systolic murmur, diastolic murmur, rubs, gallop, clicks Extremities exam: Present: normal inspection, full ROM, normal capillary refill. Absent: tenderness, pedal edema, joint swelling, calf tenderness Skin exam: Present: warm, dry, intact, normal color. Absent: rash Course Vital Signs 05/10/24 05/10/24 05/10/24 01:09 01:23 02:57 Temperature 97.4 F L Pulse Rate 66 60 55 L Respiratory 18 16 16 Rate Blood Pressure 125/76 121/76 113/69 O2 Sat by Pulse 96 96 97 Oximetry Chest Pain MDM - MDM Was pt. sent in by a medical professional or institution (, PA, WINDOW ASSEMBLER, urgent care, hospital, or [facility]...) When possible be specific @ -No Did you speak to anyone other than the patient for history (EMS, parent, family, police, friend...)? What history was obtained from this source @ -No Did you review nursing and triage notes (agree or disagree)? Why? @ -I reviewed and agree with nursing and triage notes Were old charts reviewed (outside hosp., previous admission, EMS record, old EKG, old radiological studies, urgent care reports/EKG's, [facility] records)? Report findings @ -No old charts were reviewed Differential Diagnosis (chest pain, altered mental status, abdominal pain women, abdominal pain men, vaginal bleeding, weakness, fever, dyspnea, syncope, headache, dizziness, GI bleed, back pain, seizure, CVA, palpatations, mental health, musculoskeletal)? @ -DM differential chest pain EKG interpreted by me (3pts min.). @ -As above X-rays interpreted by me (1pt min.). @ -Chest x-ray interpreted by me negative for acute cardiopulmonary process. CT interpreted by me (1pt min.). @ -None done U/S interpreted by me (1pt. min.). @ -None done What testing was considered but not performed or refused? (CT, X-rays, U/S, labs)? Why? @ -None What meds were considered but not given or refused? Why? @ -None Did you discuss the management of the patient with other professionals (professionals i.e. , PA, WINDOW ASSEMBLER, lab, RT, psych nurse, social services counselor, booker, teacher, conservation officer, machine adjuster leader case trim)? Give summary @ -Yes, case discussed with Dr. Schofield who accepts admission. Was smoking cessation discussed for >3mins.? @ -I discussed smoking cessation for greater than 3 minutes. The risk of smoking were discussed with the patient including but not limited to risks of ca ncer, stroke, coronary artery disease and COPD. Also discussed with patient were multiple methods of quitting smoking. Lastly we discussed the financial cost of smoking. Was critical care preformed (if so, how long)? @ -No Were there social determinants of health that impacted care today? How? (Homelessness, low income, unemployed, alcoholism, drug addiction, transportation, low edu. Level, literacy, decrease access to med. care, long-term, rehab)? @ -Patient is homeless Was there de-escalation of care discussed even if they declined (Discuss DNR or withdrawal of care, Hospice)? DNR status @ -No What co-morbidities impacted this encounter? (DM, HTN, Smoking, COPD, CAD, Cancer, CVA, ARF, Chemo, Hep., AIDS, mental health diagnosis, sleep apnea, morbid obesity)? @ -Smoker Was patient admitted / discharged? Hospital course, mention meds given and route, prescriptions, significant lab abnormalities, going to OR and other pertinent info. @ -Admitted. 54-year-old male presented to the ER with a chief complaint of chest pain. History and physical exam completed. Vitals stable. Patient in no signs of acute distress and nontoxic-appearing. Exam unremarkable. Laboratory studies obtained impressive for a white count of 15 which is likely reactive from patient's smoking habits. Troponin undetectable. EKG showing a normal sinus rhythm with no acute ST segment or T wave abnormalities. Chest x-ray interpreted by me negative for acute cardiopulmonary process. Admission considered for cardiac rule out. Case discussed with Dr. Schofield who accepts admission. Cardiology on consult. Patient made in stable condition. Patient agreeable for admission. Case discussed with ED attending, Dr. Krishna. Undiagnosed new problem with uncertain prognosis? @ -No Drug Therapy requiring intensive monitoring for toxicity (Heparin, Nitro, Insulin, Cardizem)? @ -No Were any procedures done? @ -No Diagnosis/symptom? @ -Chest pain/nicotine dependence Acute, or Chronic, or Acute on Chronic? @ -Acute Uncomplicated (without systemic symptoms) or Complicated (systemic symptoms)? @ -Uncomplicated Side effects of treatment? @ -No Exacerbation, Progression, or Severe Exacerbation? @ -No Poses a threat to life or bodily function? How? (Chest pain, [place], [place], pneumonia, PE, COPD, DKA, ARF, appy, cholecystitis, CVA, Diverticulitis, Homicidal, Suicidal, threat to staff... and all critical care pts) @ -Yes chest pain Disposition Clinical Impression: Chest pain, Nicotine dependence Disposition: ADMITTED IP TO THIS [facility] Condition: Stable Time of Disposition: 03:24
[2024-05-10 01:51] LABS: Basophils # (A) 0.2 k/uL (0-0.2); Basophils % (A) 1 %; Eosinophils # (A) 0.4 k/uL (0-0.7); Eosinophils % (A) 3 %; HCT 42.7 % (39.0-53.0); HGB 13.5 gm/dL (13.0-17.5); Lymphocytes # (A) 3.5 k/uL (1.0-4.8); Lymphocytes % (A) 23 %; MCH 29.7 pg (25.0-35.0); MCHC 31.6 g/dL (31.0-37.0); MCV 94.2 fL (80.0-100.0); Mean Platelet Volume 7.2; Monocytes # (A) 0.9 k/uL (0-1.0); Monocytes % (A) 6 %; Neutrophils # (A) 10.1 k/uL (1.3-7.7); Neutrophils % (A) 65 %; Platelet Count 309 k/uL (150-450); RBC 4.53 m/uL (4.30-5.90); RDW 13.7 % (11.5-15.5); WBC 15.4 k/uL (3.8-10.6)
[2024-05-10 01:58] LABS: ALT 16 U/L (4-49); AST 27 U/L (17-59); African American GFR (CKD) >90 (>60 ml/min/1.73 sqM); Albumin 4.6 g/dL (3.5-5.0); Alkaline Phosphatase 105 U/L (38-126); Anion Gap 7 mmol/L; Blood Urea Nitrogen 34 mg/dL (9-20); Calcium 9.7 mg/dL (8.4-10.2); Carbon Dioxide 24 mmol/L (22-30); Chloride 106 mmol/L (98-107); Glucose 95 mg/dL (74-99); Magnesium 1.9 mg/dL (1.6-2.3); Non-African American GFR(CKD) >90 (>60 ml/min/1.73 sqM); Potassium 4.5 mmol/L (3.5-5.1); Sodium 137 mmol/L (137-145); Total Bilirubin 0.5 mg/dL (0.2-1.3)
[2024-05-10 02:03] LABS: INR 0.9 (<1.2); Partial Thromboplastin Time 26.1 sec (22.0-30.0); Prothrombin Time 10.4 sec (10.0-12.5)
--- NOTE | 2024-05-10 02:09 | XR ---
EXAM: XR Chest, 2 Views CLINICAL HISTORY: ITS.REASON XR Reason: Chest Pain TECHNIQUE: Frontal and lateral views of the chest. COMPARISON: No relevant prior studies available. FINDINGS: Lungs: Emphysema. No consolidation. Pleural space: Unremarkable. No pneumothorax. Heart: Unremarkable. No cardiomegaly. Mediastinum: Unremarkable. Normal mediastinal contour. Bones/joints: Unremarkable. No acute fracture. IMPRESSION: No consolidation.
[2024-05-10] MEDS ORDERED: NALOXONE 0.4 MG/ML 1 ML VIAL IV PRN (02:24)
[2024-05-10] MEDS ORDERED: ONDANSETRON 4 MG/2 ML VIAL IVP PRN (02:24)
[2024-05-10] MEDS ORDERED: ACETAMINOPHEN TAB 325 MG TAB PO PRN (02:24)
[2024-05-10] MEDS: SODIUM CHLORIDE 0.9% 1,000 ML IV STA (03:00)
[2024-05-10] MEDS: IBUPROFEN 400 MG TAB PO PRN (03:08)
--- NOTE | 2024-05-10 06:30 | P.CRDCN ---
History of Present Illness History of present illness: HISTORY OF PRESENTING ILLNESS This is a pleasant 51-year-old male past medical history significant for CVA in 2013, schizophrenia, depression, COPD, chronic nicotine dependence, marijuana us e. He does not follow with a flash welder. We have been asked to see in consultation for chest pain. patient was just seen in the hospital and discharged yesterday for depression and seen on the psych unit. He states he is now home for more than a few hours and developed substernal chest pain. Denies any associated nausea or diaphoresis. Does have some shortness breath. Denies any similar episodes in the past. He was admitted in September 2021 where he had stress test and echo which were unrevealing. Patient is not followed with a flash welder. He is also homeless and smoking. He believes he has had heart attacks in the past however is never had a heart catheterization or stenting and states he was told he had a heart attack at this hospital however no record of any NC in our system. DIAGNOSTICS EKG reveals sinus rhythm, bradycardia with no significant ST or T-wave abnormalities REVIEW OF SYSTEMS At the time of my exam: CONSTITUTIONAL: Denies fever or chills. CARDIOVASCULAR: + chest pain, + shortness of breath, no orthopnea, PND or palpitations. RESPIRATORY: Denies cough. GASTROINTESTINAL: Denies abdominal pain, diarrhea, constipation, nausea or vomiting. MUSCULOSKELETAL: Denies myalgias. NEUROLOGIC: Denies numbness, tingling, headache or weakness. ENDOCRINE: Denies fatigue, weight change, polydipsia or polyurina. GENITOURINARY: Denies burning, hematuria or urgency with micturation. HEMATOLOGIC: Denies history of anemia or bleeding. PHYSICAL EXAMINATION VS reviewed CONSTITUTIONAL: No apparent distress. HEENT: Head is normocephalic. Pupils are equal, round. Sclerae anicteric. Mucous membranes of the mouth are moist. No JVD. No carotid bruit. CHEST EXAMINATION: Lungs are clear to auscultation. No chest wall tenderness is noted on palpation or with deep breathing. HEART EXAMINATION: Regular rate and rhythm. S1, S2 heard. No murmurs, gallops or rub. ABDOMEN: Soft, nontender. Positive bowel sounds. EXTREMITIES: 2+ peripheral pulses, no lower extremity edema and no calf tenderness. SKIN: warm, dry NEUROLOGIC EXAMINATION: Patient is awake, alert and oriented x3. ASSESSMENT Chest pain, atypical, acute coronary syndrome has been ruled out History of CVA 2012 COPD History of Schizophrenia and Depression Chronic nicotine dependence Marijuana use Homeless PLAN Chest pain is somewhat atypical however number of risk factors. We will check echo as well as stress test to further evaluate. Additionally check a d-dimer and if abnormal we will check a CTA. If testing unrevealing patient may be discharged home from a cardiology standpoint with outpatient follow-up. 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 Past Anesthesia/Blood Transfusion Reactions: No Reported Reaction Additional Past Anesthesia/Blood Transfusion Reaction / Comment(s): Pt has never had general/spinal anesthesia Past Psychological History: Anxiety, Bipolar, Depression, PTSD, Schizoaffective Disorder, Schizophrenia Smoking Status: Current every day smoker Past Alcohol Use History: None Reported Past Drug Use History: Marijuana - Past Family History Mother Family Medical History: CVA/TIA, Diabetes Mellitus, Myocardial Infarction ([place]) Father Family Medical History: Unable to Obtain Additional Family Medical History / Comment(s): Emphesema Medications and Allergies Home Medications Medication Instructions Recorded Confirmed Type Ergocalciferol [Vitamin D2 (1250 1,250 mcg PO DIRECTED 11/04/21 05/05/24 History Mcg = 25939 Iu)] Albuterol Sulfate [Ventolin HFA] 1 - 2 puff INHALATION DIRECTED 04/07/24 05/05/24 History PRN Atorvastatin [Lipitor] 40 mg PO DIRECTED 04/07/24 05/05/24 History Budesonide/Formoterol Fumarate 2 puff INHALATION DIRECTED 04/07/24 05/05/24 History [Symbicort 160-4.5 Mcg Inhaler] HYDROcodone/APAP 5-325MG [[place] 1 tab PO DIRECTED PRN 05/05/24 05/05/24 History 5-325] Naproxen [Naprosyn] 500 mg PO DIRECTED PRN 05/05/24 05/05/24 History Mirtazapine [Remeron] 15 mg PO HS 30 Days #30 tab 05/09/24 Rx Nicotine 14Mg/24Hr Patch [Habitrol] 1 patch TRANSDERM DAILY 14 Days 05/09/24 Rx #14 patch Sertraline [Zoloft] 50 mg PO DAILY 30 Days #30 tab 05/09/24 Rx Allergies Allergy/AdvReac Type Severity Reaction Status Date / Time bee venom protein (honey bee) Allergy Anaphylaxis Verified 05/10/24 01:12 horseradish Allergy Anaphylaxis Verified 05/10/24 01:12 venom-wasp Allergy Anaphylaxis Verified 05/10/24 01:12 Physical Exam Vitals: Vital Signs Temp Pulse Resp BP Pulse Ox 05/10/24 06:12 64 16 93/63 96 05/10/24 02:57 55 L 16 113/69 97 05/10/24 01:23 60 16 121/76 96 05/10/24 01:09 97.4 F L 66 18 125/76 96 Intake and Output 05/09/24 05/09/24 05/10/24 14:59 22:59 06:59 Other: Weight 54.794 kg Results 05/10/24 01:26 05/10/24 01:26 Cardiac Enzymes 05/10/24 05/10/24 05/10/24 Range/Units 01:26 01:26 05:00 AST 27 (17-59) U/L Troponin I <0.012 <0.012 (0.000-0.034) ng/mL Coagulation 05/10/24 Range/Units 01:26 PT 10.4 (10.0-12.5) sec APTT 26.1 (22.0-30.0) sec CBC 05/10/24 Range/Units 01:26 WBC 15.4 H (3.8-10.6) k/uL RBC 4.53 (4.30-5.90) m/uL Hgb 13.5 (13.0-17.5) gm/dL Hct 42.7 (39.0-53.0) % Plt Count 309 (150-450) k/uL Comprehensive Metabolic Panel 05/10/24 Range/Units 01:26 Sodium 137 (137-145) mmol/L Potassium 4.5 (3.5-5.1) mmol/L Chloride 106 (98-107) mmol/L Carbon Dioxide 24 (22-30) mmol/L BUN 34 H (9-20) mg/dL Creatinine 0.95 (0.66-1.25) mg/dL Glucose 95 (74-99) mg/dL Calcium 9.7 (8.4-10.2) mg/dL AST 27 (17-59) U/L ALT 16 (4-49) U/L Alkaline Phosphatase 105 (38-126) U/L Total Protein 7.0 (6.3-8.2) g/dL Albumin 4.6 (3.5-5.0) g/dL Current Medications Generic Name Dose Route Start Last Admin Trade Name Freq PRN Reason Stop Dose Admin Acetaminophen 650 mg 05/10/24 02:24 Acetaminophen Tab 325 Mg Tab PO Q6HR PRN Mild Pain or Fever > 100.5 Ibuprofen 400 mg 05/10/24 02:24 05/10/24 03:08 Ibuprofen 400 Mg Tab PO 400 mg Q6HR PRN Administration Mild Pain or Fever > 100.5 Naloxone HCl 0.2 mg 05/10/24 02:24 Naloxone 0.4 Mg/Ml 1 Ml Vial IV Q2M PRN Opioid Reversal Ondansetron HCl 4 mg 05/10/24 02:24 Ondansetron 4 Mg/2 Ml Vial IVP Q8HR PRN Nausea And Vomiting Intake and Output 05/09/24 05/09/24 05/10/24 14:59 22:59 06:59 Other: Weight 54.794 kg Patient Weight 05/10/24 06:59 Weight 54.794 kg 05/10/24 01:26 05/10/24 01:26
[2024-05-10 07:14] VITALS: PULSE 65
[2024-05-10 08:50] VITALS: BP 136/68; RESP 16
--- NOTE | 2024-05-13 23:25 | DS ---
DISCHARGE SUMMARY CHIEF COMPLAINT: Chest pain. HISTORY OF PRESENT ILLNESS AND PHYSICAL EXAMINATION: Details of this man's history and physical can be found in the initial workup. LABORATORY STUDIES: While he was in the hospital, he had laboratory studies, details of which can be found in the laboratory section of his chart. COURSE IN THE HOSPITAL: After admission, he was placed on bedrest, started on intravenous fluids in the emergency room and then suddenly signed out against medical advice. FINAL DIAGNOSES: 1. Chest pain. 2. Chronic obstructive pulmonary disease. 3. Depression. 4. Homelessness. OPERATIONS: None. CONSULTATION: None. MMODL / IJN: [id number] /
--- NOTE | 2024-05-14 00:46 | HP ---
HISTORY AND PHYSICAL CHIEF COMPLAINT: Chest pain. HISTORY OF PRESENT ILLNESS: This is another admission for this 54-year-old depressed and homeless individual with advanced COPD. He was just in the psych unit. He came back in this time complaining of chest pain. The laboratory studies in the emergency room were normal. Review of systems, past medical history, and personal and social histories are all unchanged from his recent admission. PHYSICAL EXAMINATION: VITAL SIGNS: Recorded in the emergency room. HEAD, EARS, EYES, NOSE, MOUTH AND THROAT: Normal. NECK: There is no neck vein distention. CHEST: Demonstrated poor breath sounds due to his COPD. There are occasional rales and occasional rhonchi. CARDIAC: Sinus. ABDOMEN: Flat and scaphoid. EXTREMITIES: Normal. NEUROLOGIC: He is intact. ASSESSMENT: He is admitted to the hospital with diagnoses of, 1. Chest pain. 2. Chronic obstructive pulmonary disease. 3. Major depression. 4. Homelessness. 5. Major protein-calorie deficits. MMODL / IJN: [id number] /
== END 2024-05-10 08:48 | disposition left against medical advice (07) ==
LOC: EC 01:08 → 6NMEDSUR 02:52
PROVIDERS: ADMIT Family Medicine; ATTEND Family Medicine
DX: R07.89 Other chest pain (principal); J44.9 Chronic obstructive pulmonary disease, unspecified; F25.0 Schizoaffective disorder, bipolar type; F41.9 Anxiety disorder, unspecified; F12.90 Cannabis use, unspecified, uncomplicated; F17.200 Nicotine dependence, unspecified, uncomplicated; Z59.00 Homelessness unspecified; Z86.73 Personal history of transient ischemic attack (TIA), and cerebral infarction without residual deficits; Z79.51 Long term (current) use of inhaled steroids; Z79.899 Other long term (current) drug therapy; Z53.29 Procedure and treatment not carried out because of patient's decision for other reasons
CPT/HCPCS: 99285; 36415; 93005; 85379; 80053; 83735; 84484; 85025; 85610; 85730; 71046; G0378

== ENCOUNTER 2024-05-17 22:14 | Emergency (ER) | payer OTHER ==
[2024-05-17 22:20] VITALS: RESP 18; TEMP 97.7
--- NOTE | 2024-05-17 23:24 | ED ---
Psych HPI - General Chief Complaint: Psychiatric Symptoms Stated Complaint: Mental Health Time Seen by Provider: 05/17/24 22:15 Source: patient, RN notes reviewed Mode of arrival: ambulatory Limitations: no limitations - History of Present Illness Initial Comments: 54-year-old male presents emergency department for psych evaluation. Patient states he is homeless he was fighting with other people he states that it became more depressed despite the general harm self or someone else denies any alcohol or drug use today besides marijuana. Denies any physical complaints. - Related Data Home Medications Medication Instructions Recorded Confirmed Ergocalciferol [Vitamin D2 (1250 1,250 mcg PO QMONTHLY 11/04/21 05/10/24 Mcg = 23039 Iu)] Albuterol Sulfate [Ventolin HFA] 1 - 2 puff INHALATION Q6H PRN 04/07/24 05/10/24 Atorvastatin [Lipitor] 40 mg PO HS 04/07/24 05/10/24 Budesonide/Formoterol Fumarate 2 puff INHALATION RT-BID 04/07/24 05/10/24 [Symbicort 160-4.5 Mcg Inhaler] HYDROcodone/APAP 5-325MG [[place] 1 tab PO TID PRN 05/05/24 05/10/24 5-325] Previous Rx's Medication Instructions Recorded Mirtazapine [Remeron] 15 mg PO HS 30 Days #30 tab 05/09/24 Nicotine 14Mg/24Hr Patch [Habitrol] 1 patch TRANSDERM DAILY 14 Days 05/09/24 #14 patch Sertraline [Zoloft] 50 mg PO DAILY 30 Days #30 tab 05/09/24 Allergies Allergy/AdvReac Type Severity Reaction Status Date / Time bee venom protein (honey bee) Allergy Anaphylaxis Verified 05/17/24 22:20 horseradish Allergy Anaphylaxis Verified 05/17/24 22:20 venom-wasp Allergy Anaphylaxis Verified 05/17/24 22:20 Review of Systems ROS Statement: Those systems with pertinent positive or pertinent negative responses have been documented in the HPI. ROS Other: All systems not noted in ROS Statement are negative. 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 Past Anesthesia/Blood Transfusion Reactions: No Reported Reaction Additional Past Anesthesia/Blood Transfusion Reaction / Comment(s): Pt has never had general/spinal anesthesia Past Psychological History: Anxiety, Bipolar, Depression, PTSD, Schizoaffective Disorder, Schizophrenia Smoking Status: Current every day smoker Past Alcohol Use History: None Reported Past Drug Use History: Marijuana - Past Family History Mother Family Medical History: CVA/TIA, Diabetes Mellitus, Myocardial Infarction ([place]) Father Family Medical History: Unable to Obtain Additional Family Medical History / Comment(s): Emphesema General Exam Limitations: no limitations General appearance: alert, in no apparent distress Head exam: Present: atraumatic, normocephalic, normal inspection ENT exam: Present: normal exam, mucous membranes moist Neck exam: Present: normal inspection, full ROM. Absent: tenderness, meningismus, lymphadenopathy Respiratory exam: Present: normal lung sounds bilaterally. Absent: respiratory distress, wheezes, rales, rhonchi, stridor Cardiovascular Exam: Present: regular rate, normal rhythm, normal heart sounds. Absent: systolic murmur, diastolic murmur, rubs, gallop, clicks Neurological exam: Present: alert Skin exam: Present: warm, dry, intact, normal color. Absent: rash Course Vital Signs 05/17/24 22:17 Temperature 97.7 F Pulse Rate 69 Respiratory 18 Rate Blood Pressure 146/84 O2 Sat by Pulse 98 Oximetry Medical Decision Making - Medical Decision Making Was pt. sent in by a medical professional or institution (GALEN Marroquin, INTERNATIONAL TRAVEL CONSULTANT, urgent care, hospital, or custodial...) When possible be specific @ -No Did you speak to anyone other than the patient for history (EMS, parent, family, police, friend...)? What history was obtained from this source @ -No Did you review nursing and triage notes (agree or disagree)? Why? @ -I reviewed and agree with nursing and triage notes Were old charts reviewed (outside hosp., previous admission, EMS record, old EKG, old radiological studies, urgent care reports/EKG's, custodial records)? Report findings @ -No old charts were reviewed Differential Diagnosis (chest pain, altered mental status, abdominal pain women, abdominal pain men, vaginal bleeding, weakness, fever, dyspnea, syncope, headache, dizziness, GI bleed, back pain, seizure, CVA, palpatations, mental health, musculoskeletal)? @ -Differential Mental Health Depression, anxiety, bipolar, psychosis, schizophrenia, borderline personality, situational depression, adjustment disorder, behavioral disorder, brain tumor, malingering, substance abuse, encephalopathy, medication reaction, dementia, hypothyroidism, degenerative neurologic disorder, lupus.... This is not meant to be all-inclusive list EKG interpreted by me (3pts min.). @ -None X-rays interpreted by me (1pt min.). @ -None done CT interpreted by me (1pt min.). @ -None done U/S interpreted by me (1pt. min.). @ -None done What testing was considered but not performed or refused? (CT, X-rays, U/S, labs)? Why? @ -None What meds were considered but not given or refused? Why? @ -None Did you discuss the management of the patient with other professionals (professionals i.e. , PA, INTERNATIONAL TRAVEL CONSULTANT, lab, RT, psych nurse, social media executive, advertising space clerk, teacher, chief financial officer, pillowcase sewer)? Give summary @ -EPS evaluated the patient and had safety plan and discharge patient Was smoking cessation discussed for >3mins.? @ -No Was critical care preformed (if so, how long)? @ -No Were there social determinants of health that impacted care today? How? (Homelessness, low income, unemployed, alcoholism, drug addiction, transportation, low edu. Level, literacy, decrease access to med. care, fci, rehab)? @ -No Was there de-escalation of care discussed even if they declined (Discuss DNR or withdrawal of care, Hospice)? DNR status @ -No What co-morbidities impacted this encounter? (DM, HTN, Smoking, COPD, CAD, Cancer, CVA, ARF, Chemo, Hep., AIDS, mental health diagnosis, sleep apnea, morbid obesity)? @ -None Was patient admitted / discharged? Hospital course, mention meds given and route, prescriptions, significant lab abnormalities, going to OR and other pertinent info. @ -Discharge for safety plan after evaluation with EPS as recommended by psychiatrist Undiagnosed new problem with uncertain prognosis? @ -No Drug Therapy requiring intensive monitoring for toxicity (Heparin, Nitro, Insulin, Cardizem)? @ -No Were any procedures done? @ -No Diagnosis/symptom? @ -Depression Acute, or Chronic, or Acute on Chronic? @ -Acute Uncomplicated (without systemic symptoms) or Complicated (systemic symptoms)? @ -Uncomplicated Side effects of treatment? @ -No Exacerbation, Progression, or Severe Exacerbation? @ -No Poses a threat to life or bodily function? How? (Chest pain, [place], [place], pneumonia, PE, COPD, DKA, ARF, appy, cholecystitis, CVA, Diverticulitis, Homicidal, Suicidal, threat to staff... and all critical care pts) @ -No Disposition Clinical Impression: Depression Disposition: HOME SELF-CARE Condition: Stable Additional Instructions: Please return to the Emergency Department if symptoms worsen or any other concerns. Is patient prescribed a controlled substance at d/c from ED?: No Referrals: Flash Schofield MD [Primary Care Provider] - 1-2 days Time of Disposition: 01:48
[2024-05-18 01:55] VITALS: BP 146/80; PULSE 74
== END 2024-05-18 01:54 | disposition home or self-care (01) ==
LOC: EC 22:14
DX: F32.A Depression, unspecified (principal); F17.200 Nicotine dependence, unspecified, uncomplicated; Z91.038 Other insect allergy status; Z91.030 Bee allergy status; Z91.09 Other allergy status, other than to drugs and biological substances; Z86.73 Personal history of transient ischemic attack (TIA), and cerebral infarction without residual deficits; Z59.00 Homelessness unspecified
CPT/HCPCS: 82075; 99284

== ENCOUNTER 2024-05-27 17:38 | Emergency (ER) | payer OTHER ==
--- NOTE | 2024-05-27 17:41 | ED ---
Recheck HPI - General Stated Complaint: chest pain Time Seen by Provider: 05/27/24 17:41 Source: RN notes reviewed, old records reviewed Mode of arrival: ambulatory Limitations: no limitations - History of Present Illness Initial Comments: This is a 54-year-old male who is well-known to this emergency department today. Patient presents today for evaluation of chest pain history of chest pain chest pain observation patient is known homeless in the area and is again well-known to this emergency department for different psychiatric and medical complications -: days(s) Returns Today for: persistent/worsening pain related to initial visit Symptoms Since Prior Visit: worsening pain Associated Symptoms: chest pain Treatments Prior to Arrival: Given Pain Meds on - Related Data Home Medications Medication Instructions Recorded Confirmed Ergocalciferol [Vitamin D2 (1250 1,250 mcg PO QMONTHLY 11/04/21 05/10/24 Mcg = 75703 Iu)] Albuterol Sulfate [Ventolin HFA] 1 - 2 puff INHALATION Q6H PRN 04/07/24 05/10/24 Atorvastatin [Lipitor] 40 mg PO HS 04/07/24 05/10/24 Budesonide/Formoterol Fumarate 2 puff INHALATION RT-BID 04/07/24 05/10/24 [Symbicort 160-4.5 Mcg Inhaler] HYDROcodone/APAP 5-325MG [[place] 1 tab PO TID PRN 05/05/24 05/10/24 5-325] Previous Rx's Medication Instructions Recorded Mirtazapine [Remeron] 15 mg PO HS 30 Days #30 tab 05/09/24 Nicotine 14Mg/24Hr Patch [Habitrol] 1 patch TRANSDERM DAILY 14 Days 05/09/24 #14 patch Sertraline [Zoloft] 50 mg PO DAILY 30 Days #30 tab 05/09/24 Allergies Allergy/AdvReac Type Severity Reaction Status Date / Time bee venom protein (honey bee) Allergy Anaphylaxis Verified 05/27/24 17:48 horseradish Allergy Anaphylaxis Verified 05/27/24 17:48 venom-wasp Allergy Anaphylaxis Verified 05/27/24 17:48 Review of Systems ROS Statement: Those systems with pertinent positive or pertinent negative responses have been documented in the HPI. ROS Other: All systems not noted in ROS Statement are negative. 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 Past Anesthesia/Blood Transfusion Reactions: No Reported Reaction Additional Past Anesthesia/Blood Transfusion Reaction / Comment(s): Pt has never had general/spinal anesthesia Past Psychological History: Anxiety, Bipolar, Depression, PTSD, Schizoaffective Disorder, Schizophrenia Smoking Status: Current every day smoker Past Alcohol Use History: None Reported Past Drug Use History: Marijuana - Past Family History Mother Family Medical History: CVA/TIA, Diabetes Mellitus, Myocardial Infarction ([place]) Father Family Medical History: Unable to Obtain Additional Family Medical History / Comment(s): Emphesema General Exam General appearance: anxious Head exam: Present: atraumatic, normocephalic, normal inspection Eye exam: Present: normal appearance, PERRL, EOMI. Absent: scleral icterus, conjunctival injection, periorbital swelling ENT exam: Present: normal exam, mucous membranes moist Neck exam: Present: normal inspection. Absent: tenderness, meningismus, lymph adenopathy Respiratory exam: Present: normal lung sounds bilaterally. Absent: respiratory distress, wheezes, rales, rhonchi, stridor Cardiovascular Exam: Present: regular rate, normal rhythm, normal heart sounds. Absent: systolic murmur, diastolic murmur, rubs, gallop, clicks GI/Abdominal exam: Present: soft, normal bowel sounds. Absent: distended, tenderness, guarding, rebound, rigid Extremities exam: Present: normal inspection, full ROM, normal capillary refill. Absent: tenderness, pedal edema, joint swelling, calf tenderness Back exam: Present: normal inspection Neurological exam: Present: alert, oriented X3, CN II-XII intact Psychiatric exam: Present: normal affect, normal mood Skin exam: Present: warm, dry, intact, normal color. Absent: rash Course Vital Signs 05/27/24 05/27/24 05/27/24 17:44 18:58 19:50 Temperature 97.9 F Pulse Rate 69 64 59 L Respiratory 20 18 16 Rate Blood Pressure 103/83 105/73 102/71 O2 Sat by Pulse 98 99 100 Oximetry 05/27/24 19:55 Temperature Pulse Rate 65 Respiratory 16 Rate Blood Pressure 102/71 O2 Sat by Pulse 98 Oximetry - Reevaluation(s) Reevaluation #1: Medical records reviewed Reevaluation #2: Patient symptoms improved Reevaluation #3: Patient informed of results and questions answered Reevaluation #4: Was pt. sent in by a medical professional or institution (, PA, COMMUNICATIONS SUPERVISOR, urgent care, hospital, or correction...) When possible be specific @ -no Did you speak to anyone other than the patient for history (EMS, parent, family, police, friend...)? What history was obtained from this source @ -no Did you review nursing and triage notes (agree or disagree)? Why? @ -agree Are old charts reviewed (outside hosp., previous admission, EMS record, old EKG, old radiological studies, urgent care reports/EKG's, correction records)? Report findings @ -yes Differential Diagnosis (chest pain, altered mental status, abdominal pain women, abdominal pain men, vaginal bleeding, weakness, fever, dyspnea, syncope, headac he, dizziness, GI bleed, back pain, seizure, CVA, palpatations, mental health, musculoskeletal)? @ -prior EKG interpreted by me (3pts min.). @ -yes X-rays interpreted by me (1pt min.). @ -yes negative for acute disease CT interpreted by me (1pt min.). @ -no U/S interpreted by me (1pt. min.). @ -no What testing was considered but not performed or refused? (CT, X-rays, U/S, labs)? Why? @ -none What meds were considered but not given or refused? Why? @ -none Did you discuss the management of the patient with other professionals (professionals i.e. , GALEN, COMMUNICATIONS SUPERVISOR, lab, RT, psych nurse, renal social worker, air quality engineer, teacher, field health officer, shoe parts caser)? Give summary @ -no Was smoking cessation discussed for >3mins.? @ -no Was critical care preformed (if so, how long)? @ -no Were there social determinants of health that impacted care today? How? (Homelessness, low income, unemployed, alcoholism, drug addiction, transportation, low edu. Level, literacy, decrease access to med. care, half-way, rehab)? @ -none Was there de-escalation of care discussed even if they declined (Discuss DNR or withdrawal of care, Hospice)? DNR status @ -no What co-morbidities impacted this encounter? (DM, HTN, Smoking, COPD, CAD, Cancer, CVA, ARF, Chemo, Hep., AIDS, mental health diagnosis, sleep apnea, morbi d obesity)? @ -none Was patient admitted / discharged? Hospital course, mention meds given and rout e, prescriptions, significant lab abnormalities, going to OR and other pertinent info. @ - 54 male well-known to the emergency department for chest pain today. Patient has no acute findings here in the ER no signs or symptoms of ACS and patient can be discharged home Discharge Undiagnosed new problem with uncertain prognosis? @ -no Drug Therapy requiring intensive monitoring for toxicity (Heparin, Nitro, Insulin, Cardizem)? @ -no Were any procedures done? @ -no Diagnosis/symptom? @ - Acute, or Chronic, or Acute on Chronic? @ -Acute Uncomplicated (without systemic symptoms) or Complicated (systemic symptoms)? @ -Complicated Side effects of treatment? @ -no Exacerbation, Progression, or Severe Exacerbation? @ -exacerbation Poses a threat to life or bodily function? How? (Chest pain, [place], [place], pneumonia, PE, COPD, DKA, ARF, appy, cholecystitis, CVA, Diverticulitis, Homicidal, Suic idal, threat to staff... and all critical care pts) @ -yes chest pain chest pain Reevaluation #5: Differential Altered Mental Status: Hypoglycemia, DKA, hypercapnia, ETOH, overdose, CO poisoning, trauma, myxedema coma, HTN encephalopathy, infection, encephalitis, psychosis, intercranial hemorrhage, hepatic encephalopathy, meningitis, CVA, this is not meant to be an all-inclusive list Differential Chest Pain: Stable Angina, Unstable Angina, STEMI, NSTEMI Aortic Dissection, Pneumothorax, Musculoskeletal, Esophageal Spasm GERD, Cholecystitis, Pancreatitis, Zoster, this is not meant to be an all-inclusive list. Medical Decision Making - Medical Decision Making 54 male well-known to the emergency department for chest pain today. Patient has no acute findings here in the ER no signs or symptoms of ACS and patient can be discharged home - Lab Data Result diagrams: 05/27/24 18:57 05/27/24 18:57 Lab Results 05/27/24 05/27/24 05/27/24 Range/Units 18:57 18:57 18:57 WBC 8.3 (3.8-10.6) k/uL RBC 4.55 (4.30-5.90) m/uL Hgb 13.6 (13.0-17.5) gm/dL Hct 42.0 (39.0-53.0) % MCV 92.3 (80.0-100.0) fL MCH 29.9 (25.0-35.0) pg MCHC 32.4 (31.0-37.0) g/dL RDW 13.3 (11.5-15.5) % Plt Count 360 (150-450) k/uL MPV 7.7 Neutrophils % 66 % Lymphocytes % 24 % Monocytes % 6 % Eosinophils % 2 % Basophils % 1 % Neutrophils # 5.5 (1.3-7.7) k/uL Lymphocytes # 2.0 (1.0-4.8) k/uL Monocytes # 0.5 (0-1.0) k/uL Eosinophils # 0.2 (0-0.7) k/uL Basophils # 0.1 (0-0.2) k/uL PT 10.7 (10.0-12.5) sec INR 1.0 (<1.2) APTT 24.6 (22.0-30.0) sec Sodium 138 (137-145) mmol/L Potassium 4.0 (3.5-5.1) mmol/L Chloride 108 H (98-107) mmol/L Carbon Dioxide 19 L (22-30) mmol/L Anion Gap 11 mmol/L BUN 24 H (9-20) mg/dL Creatinine 0.89 (0.66-1.25) mg/dL Est GFR (CKD-EPI)AfAm >90 (>60 ml/min/1.73 sqM) Est GFR (CKD-EPI)NonAf >90 (>60 ml/min/1.73 sqM) Glucose 124 H (74-99) mg/dL Calcium 9.6 (8.4-10.2) mg/dL Magnesium 1.8 (1.6-2.3) mg/dL Total Bilirubin 0.6 (0.2-1.3) mg/dL AST 28 (17-59) U/L ALT 14 (4-49) U/L Alkaline Phosphatase 84 (38-126) U/L Troponin I (0.000-0.034) ng/mL Total Protein 6.9 (6.3-8.2) g/dL Albumin 4.7 (3.5-5.0) g/dL 05/27/24 Range/Units 18:57 WBC (3.8-10.6) k/uL RBC (4.30-5.90) m/uL Hgb (13.0-17.5) gm/dL Hct (39.0-53.0) % MCV (80.0-100.0) fL MCH (25.0-35.0) pg MCHC (31.0-37.0) g/dL RDW (11.5-15.5) % Plt Count (150-450) k/uL MPV Neutrophils % % Lymphocytes % % Monocytes % % Eosinophils % % Basophils % % Neutrophils # (1.3-7.7) k/uL Lymphocytes # (1.0-4.8) k/uL Monocytes # (0-1.0) k/uL Eosinophils # (0-0.7) k/uL Basophils # (0-0.2) k/uL PT (10.0-12.5) sec INR (<1.2) APTT (22.0-30.0) sec Sodium (137-145) mmol/L Potassium (3.5-5.1) mmol/L Chloride (98-107) mmol/L Carbon Dioxide (22-30) mmol/L Anion Gap mmol/L BUN (9-20) mg/dL Creatinine (0.66-1.25) mg/dL Est GFR (CKD-EPI)AfAm (>60 ml/min/1.73 sqM) Est GFR (CKD-EPI)NonAf (>60 ml/min/1.73 sqM) Glucose (74-99) mg/dL Calcium (8.4-10.2) mg/dL Magnesium (1.6-2.3) mg/dL Total Bilirubin (0.2-1.3) mg/dL AST (17-59) U/L ALT (4-49) U/L Alkaline Phosphatase (38-126) U/L Troponin I <0.012 (0.000-0.034) ng/mL Total Protein (6.3-8.2) g/dL Albumin (3.5-5.0) g/dL - EKG Data -: EKG Interpreted by Me (EKG is sinus 67 W[place] 137 QRS 95 QTc 394) - Radiology Data Radiology results: report reviewed (Chest x-ray is negative for acute disease), image reviewed Disposition Clinical Impression: Chest pain Disposition: HOME SELF-CARE Condition: Good Instructions (If sedation given, give patient instructions): Chest Pain (ED) Is patient prescribed a controlled substance at d/c from ED?: No Referrals: Flash Schofield MD [Primary Care Provider] - 1-2 days Time of Disposition: 19:35
[2024-05-27 17:47] VITALS: TEMP 97.9
[2024-05-27 19:14] LABS: ALT 14 U/L (4-49); AST 28 U/L (17-59); African American GFR (CKD) >90 (>60 ml/min/1.73 sqM); Albumin 4.7 g/dL (3.5-5.0); Alkaline Phosphatase 84 U/L (38-126); Anion Gap 11 mmol/L; Blood Urea Nitrogen 24 mg/dL (9-20); Calcium 9.6 mg/dL (8.4-10.2); Carbon Dioxide 19 mmol/L (22-30); Chloride 108 mmol/L (98-107); Glucose 124 mg/dL (74-99); Magnesium 1.8 mg/dL (1.6-2.3); Non-African American GFR(CKD) >90 (>60 ml/min/1.73 sqM); Sodium 138 mmol/L (137-145); Total Bilirubin 0.6 mg/dL (0.2-1.3); Total Protein 6.9 g/dL (6.3-8.2)
[2024-05-27 19:15] LABS: Basophils # (A) 0.1 k/uL (0-0.2); Basophils % (A) 1 %; Eosinophils # (A) 0.2 k/uL (0-0.7); Eosinophils % (A) 2 %; HGB 13.6 gm/dL (13.0-17.5); Lymphocytes % (A) 24 %; MCH 29.9 pg (25.0-35.0); MCHC 32.4 g/dL (31.0-37.0); MCV 92.3 fL (80.0-100.0); Mean Platelet Volume 7.7; Monocytes # (A) 0.5 k/uL (0-1.0); Monocytes % (A) 6 %; Neutrophils # (A) 5.5 k/uL (1.3-7.7); Neutrophils % (A) 66 %; Platelet Count 360 k/uL (150-450); RBC 4.55 m/uL (4.30-5.90); RDW 13.3 % (11.5-15.5); WBC 8.3 k/uL (3.8-10.6)
--- NOTE | 2024-05-27 19:17 | XR ---
EXAMINATION TYPE: XR chest 2V DATE OF EXAM: 05/27/2024 7:04 PM CLINICAL INDICATION:Male, 54 years old with history of Chest Pain; [facility] COMPARISON: 05/10/2024 TECHNIQUE: XR chest 2V. Frontal and lateral views of the chest.. FINDINGS: Lines/Tubes/Devices: EKG leads overlie the chest. No indwelling lines are seen. Heart/mediastinum: Heart size is normal. Mediastinum appears normal. Pulmonary vascularity: Not increased, Lungs/Pleura: Lungs are hyperinflated with areas of relative lucency and diffuse interstitial coarsen ing with flattening of the diaphragm compatible with severe emphysema. There is no evidence of pleura l effusion, focal consolidation, or pneumothorax. Musculoskeletal: No acute osseous abnormality demonstrated in the limits of the exam. Degenerative c hanges of the spine and shoulders. Chronic change and malalignment at the right A/C joint likely sequ felice of previous separation. Other findings: None. IMPRESSION: Changes of severe COPD/emphysema, without evidence of acute superimposed airspace disease.
[2024-05-27 19:18] LABS: Partial Thromboplastin Time 24.6 sec (22.0-30.0); Prothrombin Time 10.7 sec (10.0-12.5)
[2024-05-27 19:52] VITALS: BP 102/71; RESP 16
[2024-05-27 19:56] VITALS: PULSE 65
[2024-05-27] MEDS: HYDROmorphone 0.5 MG/0.5 ML SYRINGE IVP STA (19:57)
[2024-05-27] MEDS: SODIUM CHLORIDE 0.9% 1,000 ML IV STA ×2 (19:57)
== END 2024-05-27 20:01 | disposition home or self-care (01) ==
LOC: EC 17:38
DX: R07.9 Chest pain, unspecified (principal); Z86.73 Personal history of transient ischemic attack (TIA), and cerebral infarction without residual deficits; F17.200 Nicotine dependence, unspecified, uncomplicated; Z91.030 Bee allergy status; Z88.8 Allergy status to other drugs, medicaments and biological substances
CPT/HCPCS: 36415; 71046; 80053; 83735; 84484; 85025; 85610; 85730; 93005; 99285

== ENCOUNTER 2025-02-18 01:27 | Emergency (ER) | payer OTHER ==
[2025-02-18 01:33] VITALS: TEMP 97.4
[2025-02-18 02:29] LABS: Basophils # (A) 0.15 10*3/uL (0.00-0.10); Basophils % (A) 1.4 %; Eosinophils # (A) 0.47 10*3/uL (0.04-0.35); Eosinophils % (A) 4.2 %; HCT 37.5 % (39.6-50.0); HGB 12.4 g/dL (13.0-17.0); Lymphocytes # (A) 3.14 10*3/uL (0.90-5.00); Lymphocytes % (A) 28.3 %; MCH 29.8 pg (27.0-32.0); MCHC 33.1 g/dL (32.0-37.0); MCV 90.1 fL (80.0-97.0); Mean Platelet Volume 9.3 fL (9.5-12.2); Monocytes # (A) 0.81 10*3/uL (0.20-1.00); Monocytes % (A) 7.3 %; Neutrophils # (A) 6.49 10*3/uL (1.80-7.70); Neutrophils % (A) 58.4 %; Platelet Count 403 10*3/uL (140-440); RBC 4.16 10*6/uL (4.40-5.60); RDW 14.1 % (11.5-14.5)
[2025-02-18 02:41] LABS: INR 0.9 (<1.2); Partial Thromboplastin Time 23.4 sec (22.0-30.0)
[2025-02-18 02:53] LABS: ALT 30 U/L (4-49); AST 31 U/L (17-59); African American GFR (CKD) 83 (>60 ml/min/1.73 sqM); Alkaline Phosphatase 141 U/L (38-126); Anion Gap 10 mmol/L; Blood Urea Nitrogen 12 mg/dL (9-20); Calcium 9.7 mg/dL (8.4-10.2); Carbon Dioxide 23 mmol/L (22-30); Chloride 103 mmol/L (98-107); Glucose 93 mg/dL (74-99); Magnesium 1.7 mg/dL (1.6-2.3); Non-African American GFR(CKD) 72 (>60 ml/min/1.73 sqM); Potassium 4.3 mmol/L (3.5-5.1); Sodium 136 mmol/L (137-145); Total Bilirubin 0.4 mg/dL (0.2-1.3); Total Protein 6.7 g/dL (6.3-8.2)
--- NOTE | 2025-02-18 02:56 | ED ---
Chest Pain HPI - General Chief Complaint: Chest Pain Stated Complaint: Chest Pain Time Seen by Provider: 02/18/25 01:42 Source: patient, RN notes reviewed Mode of arrival: ambulatory Limitations: no limitations - History of Present Illness Initial Comments: 54-year-old male with history of COPD and TIAs presenting for chest pain x 1 day. States this morning he began to experience intermittent, sharp chest pains on the right side with radiation/numbness to the right arm. States he has experienced this a handful of times today and pain comes on randomly. Denies any alleviating or exacerbating factors. States he has had this pain in the past. Denies cardiac history or blood thinners. Denies fevers, shortness of breath, cough, nasal congestion. States he is currently asymptomatic. States he has been very stressed over the past day because he got kicked out of his house and has been sleeping on the porch. Patient is asking for a sandwich as he states he has not eaten all day. - Related Data Home Medications Medication Instructions Recorded Confirmed Ergocalciferol [Vitamin D2 (1250 1,250 mcg PO QMONTHLY 11/04/21 05/10/24 Mcg = 77856 Iu)] Albuterol Sulfate [Ventolin HFA] 1 - 2 puff INHALATION Q6H PRN 04/07/24 05/10/24 Atorvastatin [Lipitor] 40 mg PO HS 04/07/24 05/10/24 Budesonide/Formoterol Fumarate 2 puff INHALATION RT-BID 04/07/24 05/10/24 [Symbicort 160-4.5 Mcg Inhaler] HYDROcodone/APAP 5-325MG [[place] 1 tab PO TID PRN 05/05/24 05/10/24 5-325] Previous Rx's Medication Instructions Recorded Mirtazapine [Remeron] 15 mg PO HS 30 Days #30 tab 05/09/24 Nicotine 14Mg/24Hr Patch [Habitrol] 1 patch TRANSDERM DAILY 14 Days 05/09/24 #14 patch Sertraline [Zoloft] 50 mg PO DAILY 30 Days #30 tab 05/09/24 Allergies Allergy/AdvReac Type Severity Reaction Status Date / Time bee venom protein (honey bee) Allergy Anaphylaxis Verified 02/18/25 01:33 horseradish Allergy Anaphylaxis Verified 02/18/25 01:33 venom-wasp Allergy Anaphylaxis Verified 02/18/25 01:33 Review of Systems ROS Statement: Those systems with pertinent positive or pertinent negative responses have been documented in the HPI. ROS Other: All systems not noted in ROS Statement are negative. EKG Findings - EKG Results: EKG: interpreted by SANTINO (EKG reveals normal sinus rhythm with sinus arrhythmia. 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 Past Anesthesia/Blood Transfusion Reactions: No Reported Reaction Additional Past Anesthesia/Blood Transfusion Reaction / Comment(s): Pt has never had general/spinal anesthesia Past Psychological History: Anxiety, Bipolar, Depression, PTSD, Schizoaffective Disorder, Schizophrenia Smoking Status: Current every day smoker Past Alcohol Use History: None Reported Past Drug Use History: Marijuana - Past Family History Mother Family Medical History: CVA/TIA, Diabetes Mellitus, Myocardial Infarction ([place]) Father Family Medical History: Unable to Obtain Additional Family Medical History / Comment(s): Emphesema General Exam Limitations: no limitations General appearance: alert, in no apparent distress Head exam: Present: atraumatic, normocephalic, normal inspection Eye exam: Present: normal appearance, PERRL, EOMI. Absent: scleral icterus, conjunctival injection, periorbital swelling Respiratory exam: Present: normal lung sounds bilaterally. Absent: respiratory distress, wheezes, rales, rhonchi, stridor, chest wall tenderness, accessory muscle use Cardiovascular Exam: Present: regular rate, normal rhythm, normal heart sounds. Absent: systolic murmur, diastolic murmur, rubs, gallop, clicks GI/Abdominal exam: Present: soft, normal bowel sounds. Absent: distended, tenderness, guarding, rebound, rigid Neurological exam: Present: alert, oriented X3 Psychiatric exam: Present: normal affect, normal mood Skin exam: Present: warm, dry, intact, normal color. Absent: rash Course Vital Signs 02/18/25 02/18/25 01:31 03:07 Temperature 97.4 F L Pulse Rate 85 70 Respiratory 16 18 Rate Blood Pressure 137/81 105/64 O2 Sat by Pulse 98 95 Oximetry Chest Pain MDM - MDM Was pt. sent in by a medical professional or institution (, PA, CAKE CUTTER MACHINE, urgent care, hospital, or senior care...) When possible be specific @ -No Did you speak to anyone other than the patient for history (EMS, parent, family, police, friend...)? What history was obtained from this source @ -No Did you review nursing and triage notes (agree or disagree)? Why? @ -I reviewed and agree with nursing and triage notes Were old charts reviewed (outside hosp., previous admission, EMS record, old EKG, old radiological studies, urgent care reports/EKG's, senior care records)? Report findings @ -No old charts were reviewed Differential Diagnosis (chest pain, altered mental status, abdominal pain women, abdominal pain men, vaginal bleeding, weakness, fever, dyspnea, syncope, headache, dizziness, GI bleed, back pain, seizure, CVA, palpatations, mental health, musculoskeletal)? @ -Differential Chest Pain: Stable Angina, Unstable Angina, STEMI, NSTEMI Aortic Dissection, Pneumothorax, Musculoskeletal, Esophageal Spasm GERD, Cholecystitis, Pancreatitis, Zoster, this is not meant to be an all-inclusive list. EKG interpreted by me (3pts min.). @ -As above X-rays interpreted by me (1pt min.). @ -Chest x-ray read by me reveals no acute cardiopulmonary process CT interpreted by me (1pt min.). @ -None done U/S interpreted by me (1pt. min.). @ -None done What testing was considered but not performed or refused? (CT, X-rays, U/S, labs)? Why? @ -None What meds were considered but not given or refused? Why? @ -None Did you discuss the management of the patient with other professionals (professionals i.e. , GALEN, CAKE CUTTER MACHINE, lab, RT, psych nurse, director of social services, motor polarizer, teacher, science and operations officer, case assistant)? Give summary @ -No Was smoking cessation discussed for >3mins.? @ -No Was critical care preformed (if so, how long)? @ -No Were there social determinants of health that impacted care today? How? (Homelessness, low income, unemployed, alcoholism, drug addiction, transportation, low edu. Level, literacy, decrease access to med. care, longterm, rehab)? @ -No Was there de-escalation of care discussed even if they declined (Discuss DNR or withdrawal of care, Hospice)? DNR status @ -No What co-morbidities impacted this encounter? (DM, HTN, Smoking, COPD, CAD, Cancer, CVA, ARF, Chemo, Hep., AIDS, mental health diagnosis, sleep apnea, morbid obesity)? @ -None Was patient admitted / discharged? Hospital course, mention meds given and route, prescriptions, significant lab abnormalities, going to OR and other pertinent info. @ - discharge. 54-year-old male presenting for chest pain x 1 day. States pain is intermittent and he is currently asymptomatic. No cardiac history. Vital signs within acceptable limits. Patient is well-appearing, no acute distress. EKG reveals normal sinus rhythm with sinus arrhythmia, no acute ST changes. Chest x-ray reveals no acute process. Lab work including CBC, CMP, coags, troponin remarkable for white blood cell count 11, otherwise unremarkable. Troponin undetected. Heart score of 3. Results discussed with patient. Given patient is asymptomatic and heart score is low, patient can be safely discharged home with close outpatient follow-up and strict return precautions. Patient is agreeable to this plan. Case was discussed with my ED attending Dr. Krishna. Undiagnosed new problem with uncertain prognosis? @ -No Drug Therapy requiring intensive monitoring for toxicity (Heparin, Nitro, Insulin, Cardizem)? @ -No Were any procedures done? @ -No Diagnosis/symptom? @ -Chest pain Acute, or Chronic, or Acute on Chronic? @ -Acute Uncomplicated (without systemic symptoms) or Complicated (systemic symptoms)? @ -Uncomplicated Side effects of treatment? @ -No Exacerbation, Progression, or Severe Exacerbation? @ -No Poses a threat to life or bodily function? How? (Chest pain, [place], [place], pneumonia, PE, COPD, DKA, ARF, appy, cholecystitis, CVA, Diverticulitis, Homicidal, Suicidal, threat to staff... and all critical care pts) @ -Unlikely at this time Disposition Clinical Impression: Chest pain Disposition: HOME SELF-CARE Condition: Stable Additional Instructions: Please return to the Emergency Department if symptoms worsen or any other concerns. Is patient prescribed a controlled substance at d/c from ED?: No Referrals: Flash Schofield MD [Primary Care Provider] - 1-2 days Time of Disposition: 03:32
[2025-02-18 03:08] VITALS: BP 105/64; RESP 18
--- NOTE | 2025-02-18 03:42 | XR ---
EXAM: XR Chest, 2 Views CLINICAL HISTORY: Chest pain TECHNIQUE: Frontal and lateral views of the chest. COMPARISON: Chest 2 views 05/27/2024 FINDINGS: Lungs: Unremarkable. No consolidation. The pulmonary vasculature demonstrates no significant radiographic abnormality. Pleural space: Unremarkable. No pneumothorax. No large pleural effusion. Heart: Unremarkable. No cardiomegaly. Mediastinum: The mediastinal contours are stable and unremarkable. The trachea is midline. Bones/joints: Unremarkable. No acute fracture. IMPRESSION: No focal consolidation or acute cardiopulmonary process identified.
[2025-02-18 03:52] VITALS: PULSE 74
== END 2025-02-18 04:02 | disposition home or self-care (01) ==
LOC: EC 01:27
DX: R07.9 Chest pain, unspecified (principal); J44.9 Chronic obstructive pulmonary disease, unspecified; F17.200 Nicotine dependence, unspecified, uncomplicated; Z91.030 Bee allergy status; Z88.8 Allergy status to other drugs, medicaments and biological substances
CPT/HCPCS: 36415; 71046; 80053; 83735; 84484; 85025; 85610; 85730; 93005; 99285

== ENCOUNTER 2025-03-09 00:51 | Emergency (ER) | payer OTHER ==
[2025-03-09 00:56] VITALS: RESP 16
--- NOTE | 2025-03-09 01:51 | ED ---
ENT HPI - General Chief complaint: Dental/Oral Stated complaint: tooth pain Time Seen by Provider: 03/09/25 01:49 Source: patient, RN notes reviewed Mode of arrival: ambulatory Limitations: no limitations - History of Present Illness Initial comments: 55-year-old male presenting for right-sided tooth pain x 2 days. States he has a history of dental caries and has not seen a dentist in over 30 years. Patient is asking for food during examination. Denies difficulty breathing or swallowing. - Related Data Home Medications Medication Instructions Recorded Confirmed Ergocalciferol [Vitamin D2 (1250 1,250 mcg PO QMONTHLY 11/04/21 05/10/24 Mcg = 06291 Iu)] Albuterol Sulfate [Ventolin HFA] 1 - 2 puff INHALATION Q6H PRN 04/07/24 05/10/24 Atorvastatin [Lipitor] 40 mg PO HS 04/07/24 05/10/24 Budesonide/Formoterol Fumarate 2 puff INHALATION RT-BID 04/07/24 05/10/24 [Symbicort 160-4.5 Mcg Inhaler] HYDROcodone/APAP 5-325MG [[place] 1 tab PO TID PRN 05/05/24 05/10/24 5-325] Previous Rx's Medication Instructions Recorded Mirtazapine [Remeron] 15 mg PO HS 30 Days #30 tab 05/09/24 Nicotine 14Mg/24Hr Patch [Habitrol] 1 patch TRANSDERM DAILY 14 Days 05/09/24 #14 patch Sertraline [Zoloft] 50 mg PO DAILY 30 Days #30 tab 05/09/24 Amoxic-Pot Clav 875-125Mg 1 tab PO Q12HR #20 tab 03/09/25 [Augmentin 875-125] Allergies Allergy/AdvReac Type Severity Reaction Status Date / Time bee venom protein (honey bee) Allergy Anaphylaxis Verified 03/09/25 00:53 horseradish Allergy Anaphylaxis Verified 03/09/25 00:53 venom-wasp Allergy Anaphylaxis Verified 03/09/25 00:53 Review of Systems ROS Statement: Those systems with pertinent positive or pertinent negative responses have been documented in the HPI. ROS Other: All systems not noted in ROS Statement are negative. 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 Past Anesthesia/Blood Transfusion Reactions: No Reported Reaction Additional Past Anesthesia/Blood Transfusion Reaction / Comment(s): Pt has never had general/spinal anesthesia Past Psychological History: Anxiety, Bipolar, Depression, PTSD, Schizoaffective Disorder, Schizophrenia Smoking Status: Current every day smoker, Vaper Past Alcohol Use History: None Reported Past Drug Use History: Marijuana - Past Family History Mother Family Medical History: CVA/TIA, Diabetes Mellitus, Myocardial Infarction ([place]) Father Family Medical History: Unable to Obtain Additional Family Medical History / Comment(s): Emphesema General Exam Limitations: no limitations General appearance: alert, in no apparent distress Head exam: Present: atraumatic, normocephalic, normal inspection Eye exam: Present: normal appearance, PERRL, EOMI. Absent: scleral icterus, conjunctival injection, periorbital swelling ENT exam: Present: mucous membranes moist. Absent: normal exam (Diffuse dental caries throughout. No sign of fluctuant masses or abscesses. No active drainage), normal oropharynx Neck exam: Present: normal inspection. Absent: tenderness, meningismus, lymphadenopathy Respiratory exam: Present: normal lung sounds bilaterally. Absent: respiratory distress, wheezes, rales, rhonchi, stridor Neurological exam: Present: alert, oriented X3 Psychiatric exam: Present: normal affect, normal mood Skin exam: Present: warm, dry, intact, normal color. Absent: rash Course Vital Signs 03/09/25 00:53 Temperature 97.8 F Pulse Rate 76 Respiratory 16 Rate Blood Pressure 113/78 O2 Sat by Pulse 97 Oximetry Medical Decision Making - Medical Decision Making Was pt. sent in by a medical professional or institution (, PA, SWINE NUTRITIONIST, urgent care, hospital, or senior living...) When possible be specific @ -No Did you speak to anyone other than the patient for history (EMS, parent, family, police, friend...)? What history was obtained from this source @ -No Did you review nursing and triage notes (agree or disagree)? Why? @ -I reviewed and agree with nursing and triage notes Were old charts reviewed (outside hosp., previous admission, EMS record, old EKG, old radiological studies, urgent care reports/EKG's, senior living records)? Report findings @ -No old charts were reviewed Differential Diagnosis (chest pain, altered mental status, abdominal pain women, abdominal pain men, vaginal bleeding, weakness, fever, dyspnea, syncope, headache, dizziness, GI bleed, back pain, seizure, CVA, palpatations, mental health, musculoskeletal)? @ -Dental abscess, dental infection, gingivitis, Omar's angina EKG interpreted by me (3pts min.). @ -None X-rays interpreted by me (1pt min.). @ -None done CT interpreted by me (1pt min.). @ -None done U/S interpreted by me (1pt. min.). @ -None done What testing was considered but not performed or refused? (CT, X-rays, U/S, labs)? Why? @ -None What meds were considered but not given or refused? Why? @ -None Did you discuss the management of the patient with other professionals (professionals i.e. , PA, SWINE NUTRITIONIST, lab, RT, psych nurse, social and political studies professor, manager bank, teacher, science and operations officer, disease case manager rn)? Give summary @ -No Was smoking cessation discussed for >3mins.? @ -No Was critical care preformed (if so, how long)? @ -No Were there social determinants of health that impacted care today? How? (Homelessness, low income, unemployed, alcoholism, drug addiction, transportation, low edu. Level, literacy, decrease access to med. care, correction, rehab)? @ -No Was there de-escalation of care discussed even if they declined (Discuss DNR or withdrawal of care, Hospice)? DNR status @ -No What co-morbidities impacted this encounter? (DM, HTN, Smoking, COPD, CAD, Cancer, CVA, ARF, Chemo, Hep., AIDS, mental health diagnosis, sleep apnea, morbid obesity)? @ -None Was patient admitted / discharged? Hospital course, mention meds given and route, prescriptions, significant lab abnormalities, going to OR and other pertinent info. @ -Discharge. 55-year-old male presenting for dental pain x 2 days. No red flag symptoms. No lip or tongue swelling. No difficulty breathing or swallowing. Patient has diffuse dental caries throughout oral cavity. Provided with ibuprofen and dose of Augmentin. Patient will be provided with outpatient prescription for Augmentin and advised to follow closely with dentist. Appropriate return precautions and supportive care discussed. Case was discussed with my ED attending Dr. Nevarez. Undiagnosed new problem with uncertain prognosis? @ -No Drug Therapy requiring intensive monitoring for toxicity (Heparin, Nitro, Insulin, Cardizem)? @ -No Were any procedures done? @ -No Diagnosis/symptom? @ -Dental infection Acute, or Chronic, or Acute on Chronic? @ -Acute Uncomplicated (without systemic symptoms) or Complicated (systemic symptoms)? @ -Uncomplicated Side effects of treatment? @ -No Exacerbation, Progression, or Severe Exacerbation? @ -No Poses a threat to life or bodily function? How? (Chest pain, [place], [place], pneumonia, PE, COPD, DKA, ARF, appy, cholecystitis, CVA, Diverticulitis, Homicidal, Suicidal, threat to staff... and all critical care pts) @ -No Disposition Clinical Impression: Dental infection Disposition: HOME SELF-CARE Condition: Stable Instructions (If sedation given, give patient instructions): Dental Abscess (ED) Additional Instructions: Follow-up with dentist. Take Augmentin twice daily for 10 days. Apply ice to the affected area. Please return to the Emergency Department if symptoms worsen or any other concerns. Prescriptions: Amoxic-Pot Clav 875-125Mg [Augmentin 875-125] 1 tab PO Q12HR #20 tab Is patient prescribed a controlled substance at d/c from ED?: No Referrals: Flash Schofield MD [Primary Care Provider] - 1-2 days Time of Disposition: 03:17
[2025-03-09] MEDS: AMOXIC-POT CLAV 875-125MG 1 EACH TAB PO STA (02:09)
[2025-03-09] MEDS: IBUPROFEN 800 MG TAB PO STA (02:09)
[2025-03-09 03:49] VITALS: BP 109/73; PULSE 65; TEMP 97.5
== END 2025-03-09 03:43 | disposition home or self-care (01) ==
LOC: EC 00:51
DX: K04.7 Periapical abscess without sinus (principal); K02.9 Dental caries, unspecified; F17.290 Nicotine dependence, other tobacco product, uncomplicated; Z91.030 Bee allergy status; Z91.09 Other allergy status, other than to drugs and biological substances; Z86.73 Personal history of transient ischemic attack (TIA), and cerebral infarction without residual deficits
CPT/HCPCS: 99283

== ENCOUNTER 2025-03-18 01:40 | Emergency (ER) | payer OTHER, MEDICAID ==
--- NOTE | 2025-03-18 04:03 | ED ---
General Adult HPI - General Chief complaint: Psychiatric Symptoms Stated complaint: Mental Health Time Seen by Provider: 03/18/25 02:04 Source: patient Mode of arrival: ambulatory Limitations: no limitations - History of Present Illness Initial comments: 55-year-old male presenting with chief complaint of suicidal and homicidal ideation. Patient reports that he was told by his landlord that he is going to be kicked out and he is quite upset by this. States that he has thought of harming his landlord and then himself by being up his landlord and then cutting his wrists or walking to traffic. He denies any physical complaints today. He is calm and cooperative. - Related Data Home Medications Medication Instructions Recorded Confirmed Ergocalciferol [Vitamin D2 (1250 1,250 mcg PO QMONTHLY 11/04/21 03/18/25 Mcg = 98878 Iu)] Albuterol Sulfate [Ventolin HFA] 2 puff INHALATION RT-Q6H PRN 04/07/24 03/18/25 HYDROcodone/APAP 5-325MG [[place] 1 tab PO BID PRN 05/05/24 03/18/25 5-325] Ibuprofen [Motrin] 600 mg PO TID PRN 03/18/25 03/18/25 Mirtazapine [Remeron] 45 mg PO HS 03/18/25 03/18/25 PARoxetine [Paxil] 20 mg PO DAILY 03/18/25 03/18/25 QUEtiapine [SEROquel] 25 mg PO HS 03/18/25 03/18/25 Rosuvastatin [Crestor] 20 mg PO HS 03/18/25 03/18/25 Previous Rx's Medication Instructions Recorded Amoxic-Pot Clav 875-125Mg 1 tab PO Q12HR #20 tab 03/09/25 [Augmentin 875-125] Allergies Allergy/AdvReac Type Severity Reaction Status Date / Time bee venom protein (honey bee) Allergy Anaphylaxis Verified 03/18/25 13:42 horseradish Allergy Anaphylaxis Verified 03/18/25 13:42 venom-wasp Allergy Anaphylaxis Verified 03/18/25 13:42 Review of Systems ROS Statement: Those systems with pertinent positive or pertinent negative responses have been documented in the HPI. ROS Other: All systems not noted in ROS Statement are negative. 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 Past Anesthesia/Blood Transfusion Reactions: No Reported Reaction Additional Past Anesthesia/Blood Transfusion Reaction / Comment(s): Pt has never had general/spinal anesthesia Past Psychological History: Anxiety, Bipolar, Depression, PTSD, Schizoaffective Disorder, Schizophrenia Smoking Status: Current every day smoker, Vaper Past Alcohol Use History: None Reported Past Drug Use History: Marijuana - Past Family History Mother Family Medical History: CVA/TIA, Diabetes Mellitus, Myocardial Infarction ([place]) Father Family Medical History: Unable to Obtain Additional Family Medical History / Comment(s): Emphesema General Exam Limitations: no limitations Course Vital Signs 03/18/25 03/18/25 03/18/25 01:57 07:17 08:45 Temperature 97.5 F L Pulse Rate 62 Respiratory 18 17 15 Rate Blood Pressure 127/75 O2 Sat by Pulse 97 Oximetry 03/18/25 03/18/25 03/18/25 09:15 10:32 16:16 Temperature 98.1 F Pulse Rate 54 L Respiratory 16 18 16 Rate Blood Pressure 112/64 O2 Sat by Pulse 98 Oximetry 03/19/25 03/19/25 03:37 12:04 Temperature 98.1 F 98.7 F Pulse Rate 60 80 Respiratory 18 16 Rate Blood Pressure 101/62 117/64 O2 Sat by Pulse 97 97 Oximetry Medical Decision Making - Medical Decision Making Was pt. sent in by a medical professional or institution (, PA, PHOTOGRAPHER, urgent care, hospital, or retirement...) When possible be specific @ -[No] Did you speak to anyone other than the patient for history (EMS, parent, family, police, friend...)? What history was obtained from this source @ -[No] Did you review nursing and triage notes (agree or disagree)? Why? @ -[I reviewed and agree with nursing and triage notes] Were old charts reviewed (outside hosp., previous admission, EMS record, old EKG, old radiological studies, urgent care reports/EKG's, retirement records)? Report findings @ -[No old charts were reviewed] Differential Diagnosis (chest pain, altered mental status, abdominal pain women, abdominal pain men, vaginal bleeding, weakness, fever, dyspnea, syncope, headache, dizziness, GI bleed, back pain, seizure, CVA, palpatations, mental health, musculoskeletal)? @ -Differential Mental Health Depression, anxiety, bipolar, psychosis, schizophrenia, borderline personality, situational depression, adjustment disorder, behavioral disorder, brain tumor, malingering, substance abuse, encephalopathy, medication reaction, dementia, hypothyroidism, degenerative neurologic disorder, lupus.... This is not meant to be all-inclusive list EKG interpreted by me (3pts min.). @ -[As above] X-rays interpreted by me (1pt min.). @ -[None done] CT interpreted by me (1pt min.). @ -[None done] U/S interpreted by me (1pt. min.). @ -[None done] What testing was considered but not performed or refused? (CT, X-rays, U/S, labs)? Why? @ -[None] What meds were considered but not given or refused? Why? @ -[None] Did you discuss the management of the patient with other professionals (professionals i.e. , PA, PHOTOGRAPHER, lab, RT, psych nurse, drawer hardware worker, machine cementer and folder, teacher, chief talent officer, onsite case manager)? Give summary @ -[No] Was smoking cessation discussed for >3mins.? @ -[No] Was critical care preformed (if so, how long)? @ -[No] Were there social determinants of health that impacted care today? How? (Homelessness, low income, unemployed, alcoholism, drug addiction, transportation, low edu. Level, literacy, decrease access to med. care, detention, rehab)? @ -[No] Was there de-escalation of care discussed even if they declined (Discuss DNR or withdrawal of care, Hospice)? DNR status @ -[No] What co-morbidities impacted this encounter? (DM, HTN, Smoking, COPD, CAD, Cancer, CVA, ARF, Chemo, Hep., AIDS, mental health diagnosis, sleep apnea, morbid obesity)? @ -[None] Was patient admitted / discharged? Hospital course, mention meds given and route, prescriptions, significant lab abnormalities, going to OR and other pertinent info. @ -55-year-old male presenting with chief complaint of suicidal ideation. He is evaluated and medically cleared. Awaiting evaluation by EPS. Signed out to my attending Undiagnosed new problem with uncertain prognosis? @ -[No] Drug Therapy requiring intensive monitoring for toxicity (Heparin, Nitro, Insulin, Cardizem)? @ -[No] Were any procedures done? @ -[No] Diagnosis/symptom? @ -[default] Acute, or Chronic, or Acute on Chronic? @ -[default] Uncomplicated (without systemic symptoms) or Complicated (systemic symptoms)? @ -[default] Side effects of treatment? @ -[No] Exacerbation, Progression, or Severe Exacerbation? @ -[No] Poses a threat to life or bodily function? How? (Chest pain, [place], [place], pneumonia, PE, COPD, DKA, ARF, appy, cholecystitis, CVA, Diverticulitis, Homicidal, Suicidal, threat to staff... and all critical care pts) @ -[No] - Lab Data Lab Results 03/18/25 03/18/25 Range/Units 04:45 09:18 Urine Opiates Screen Not Detected (NotDetected) Ur Oxycodone Screen Not Detected (NotDetected) Urine Methadone Screen Not Detected (NotDetected) Ur Barbiturates Screen Not Detected (NotDetected) U Tricyclic Antidepress Not Detected (NotDetected) Ur Phencyclidine Scrn Not Detected (NotDetected) Ur Amphetamines Screen Not Detected (NotDetected) U Methamphetamines Scrn Not Detected (NotDetected) U Benzodiazepines Scrn Not Detected (NotDetected) Urine Cocaine Screen Not Detected (NotDetected) U Marijuana (THC) Screen Detected H (NotDetected) Influenza Type A (PCR) Not Detected (Not Detectd) Influenza Type B (PCR) Not Detected (Not Detectd) RSV (PCR) Not Detected (Not Detectd) SARS-CoV-2 (PCR) Not Detected (Not Detectd) Disposition Clinical Impression: Suicidal ideation Disposition: TRANSFER TO PSYCH HOSP/UNIT Condition: Fair Referrals: Flash Schofield MD [Primary Care Provider] - 1-2 days
[2025-03-18 05:31] LABS: Influenza A Not Detected (Not Detectd); Influenza B Not Detected (Not Detectd); RSV Not Detected (Not Detectd)
[2025-03-18 09:48] LABS: Amphetamine Screen,Urine Not Detected (NotDetected); Barbiturate Screen,Urine Not Detected (NotDetected); Benzodiazepines Screen,Urine Not Detected (NotDetected); Cocaine Screen,Urine Not Detected (NotDetected); Methadone Screen, Urine Not Detected (NotDetected); Opiate Screen,Urine Not Detected (NotDetected); Oxycodone Screen, Urine Not Detected (NotDetected); Phencyclidine Screen,Urine Not Detected (NotDetected); Tricyclic Antidepressant,Urine Not Detected (NotDetected); Urn Cannabinoid Scrn Detected (NotDetected)
[2025-03-18] MEDS ORDERED: HYDROcodone/APAP 5-325MG 1 EACH TAB PO PRN (21:03)
[2025-03-18] MEDS ORDERED: IBUPROFEN 600 MG TAB PO PRN (21:03)
[2025-03-18] MEDS ORDERED: ALBUTEROL NEBULIZED 2.5 MG/3 ML INHALATION PRN (21:03)
[2025-03-19] MEDS: PARoxetine 20 MG TAB PO SCH (10:53)
[2025-03-19 12:05] VITALS: BP 117/64; PULSE 80; RESP 16; TEMP 98.7
[2025-03-19] MEDS ORDERED: QUEtiapine 25 MG TAB PO SCH (21:00)
[2025-03-19] MEDS ORDERED: MIRTAZAPINE 45 MG TABLET PO SCH (21:00)
[2025-03-24] MEDS ORDERED: ERGOCALCIFEROL 1,250 MCG (50,000 IU) CAPSULE PO SCH (09:00)
== END 2025-03-19 12:05 ==
LOC: EC 01:40
DX: R45.851 Suicidal ideations (principal); F17.290 Nicotine dependence, other tobacco product, uncomplicated; Z91.030 Bee allergy status; Z91.018 Allergy to other foods
CPT/HCPCS: 80306; 82075; 87636; 99285

== ENCOUNTER 2025-04-07 22:21 | Emergency (ER) | payer MEDICAID, OTHER ==
[2025-04-07 22:28] VITALS: TEMP 97.7
--- NOTE | 2025-04-07 23:46 | ED ---
Psych HPI - General Chief Complaint: Psychiatric Symptoms Stated Complaint: Mental health Time Seen by Provider: 04/07/25 23:29 Source: patient, RN notes reviewed, old records reviewed Mode of arrival: ambulatory Limitations: no limitations - History of Present Illness Initial Comments: This is a 55-year-old male to the ER for evaluation patient admits to some increased life stressors anxiety and stress with maybe some mild depression recently homeless with no place to stay sleeping no food eating. Patient is looking for a place to relax sit and something to eat MD Complaint: feels depressed -: week(s) Improves With: none Worsens With: none Associated Symptoms: denies other symptoms Treatments Prior to Arrival: placed on mental health hold - Related Data Home Medications Medication Instructions Recorded Confirmed Ergocalciferol [Vitamin D2 (1250 1,250 mcg PO QMONTHLY 11/04/21 03/18/25 Mcg = 22006 Iu)] Albuterol Sulfate [Ventolin HFA] 2 puff INHALATION RT-Q6H PRN 04/07/24 03/18/25 HYDROcodone/APAP 5-325MG [[place] 1 tab PO BID PRN 05/05/24 03/18/25 5-325] Ibuprofen [Motrin] 600 mg PO TID PRN 03/18/25 03/18/25 Mirtazapine [Remeron] 45 mg PO HS 03/18/25 03/18/25 PARoxetine [Paxil] 20 mg PO DAILY 03/18/25 03/18/25 QUEtiapine [SEROquel] 25 mg PO HS 03/18/25 03/18/25 Rosuvastatin [Crestor] 20 mg PO HS 03/18/25 03/18/25 Previous Rx's Medication Instructions Recorded Amoxic-Pot Clav 875-125Mg 1 tab PO Q12HR #20 tab 03/09/25 [Augmentin 875-125] Allergies Allergy/AdvReac Type Severity Reaction Status Date / Time bee venom protein (honey bee) Allergy Anaphylaxis Verified 03/18/25 13:42 horseradish Allergy Anaphylaxis Verified 03/18/25 13:42 venom-wasp Allergy Anaphylaxis Verified 03/18/25 13:42 Review of Systems ROS Statement: Those systems with pertinent positive or pertinent negative responses have been documented in the HPI. ROS Other: All systems not noted in ROS Statement are negative. 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 Past Anesthesia/Blood Transfusion Reactions: No Reported Reaction Additional Past Anesthesia/Blood Transfusion Reaction / Comment(s): Pt has never had general/spinal anesthesia Past Psychological History: Anxiety, Bipolar, Depression, PTSD, Schizoaffective Disorder, Schizophrenia Smoking Status: Current every day smoker, Vaper Past Alcohol Use History: None Reported Past Drug Use History: Marijuana - Past Family History Mother Family Medical History: CVA/TIA, Diabetes Mellitus, Myocardial Infarction ([place]) Father Family Medical History: Unable to Obtain Additional Family Medical History / Comment(s): Emphesema General Exam General appearance: alert, in no apparent distress Head exam: Present: atraumatic, normocephalic, normal inspection Eye exam: Present: normal appearance, PERRL, EOMI. Absent: scleral icterus, conjunctival injection, periorbital swelling ENT exam: Present: normal exam, mucous membranes moist Neck exam: Present: normal inspection. Absent: tenderness, meningismus, lymphadenopathy Respiratory exam: Present: normal lung sounds bilaterally. Absent: respiratory distress, wheezes, rales, rhonchi, stridor Cardiovascular Exam: Present: regular rate, normal rhythm, normal heart sounds. Absent: systolic murmur, diastolic murmur, rubs, gallop, clicks GI/Abdominal exam: Present: soft, normal bowel sounds. Absent: distended, tenderness, guarding, rebound, rigid Extremities exam: Present: normal inspection, full ROM, normal capillary refill. Absent: tenderness, pedal edema, joint swelling, calf tenderness Back exam: Present: normal inspection Neurological exam: Present: alert, oriented X3, CN II-XII intact Psychiatric exam: Present: normal affect, normal mood Skin exam: Present: warm, dry, intact, normal color. Absent: rash Course Vital Signs 04/07/25 22:23 Temperature 97.7 F Pulse Rate 65 Respiratory 18 Rate Blood Pressure 112/72 O2 Sat by Pulse 98 Oximetry - Reevaluation(s) Reevaluation #1: 04/07/25 23:45 Medical records reviewed Reevaluation #2: 04/07/25 23:45 Patient is not homicidal or suicidal Reevaluation #3: 04/07/25 23:45 Patient requesting sandwich food, request granted patient can be discharged Reevaluation #4: Was pt. sent in by a medical professional or institution (, [facility], PHYSICAL PLANT EMPLOYEE, urgent care, hospital, or long-term...) When possible be specific @ -no Did you speak to anyone other than the patient for history (EMS, parent, family, police, friend...)? What history was obtained from this source @ -no Did you review nursing and triage notes (agree or disagree)? Why? @ -agree Are old charts reviewed (outside hosp., previous admission, EMS record, old EKG, old radiological studies, urgent care reports/EKG's, long-term records)? Report findings @ -yes Differential Diagnosis (chest pain, altered mental status, abdominal pain women, abdominal pain men, vaginal bleeding, weakness, fever, dyspnea, syncope, headache, dizziness, GI bleed, back pain, seizure, CVA, palpatations, mental health, musculoskeletal)? @ -prior EKG interpreted by me (3pts min.). @ -yes X-rays interpreted by me (1pt min.). @ -yes negative for acute disease CT interpreted by me (1pt min.). @ -no U/S interpreted by me (1pt. min.). @ -no What testing was considered but not performed or refused? (CT, X-rays, U/S, labs)? Why? @ -none What meds were considered but not given or refused? Why? @ -none Did you discuss the management of the patient with other professionals (professionals i.e. , [facility], PHYSICAL PLANT EMPLOYEE, lab, RT, psych nurse, social work nurse, city editor, teacher, security control room officer, adult protective caseworker)? Give summary @ -no Was smoking cessation discussed for >3mins.? @ -no Was critical care preformed (if so, how long)? @ -no Were there social determinants of health that impacted care today? How? (Homelessness, low income, unemployed, alcoholism, drug addiction, transportation, low edu. Level, literacy, decrease access to med. care, custodial, rehab)? @ -none Was there de-escalation of care discussed even if they declined (Discuss DNR or withdrawal of care, Hospice)? DNR status @ -no What co-morbidities impacted this encounter? (DM, HTN, Smoking, COPD, CAD, Cancer, CVA, ARF, Chemo, Hep., AIDS, mental health diagnosis, sleep apnea, morbid obesity)? @ -none Was patient admitted / discharged? Hospital course, mention meds given and route, prescriptions, significant lab abnormalities, going to OR and other pertinent info. @ - Undiagnosed new problem with uncertain prognosis? @ -no Drug Therapy requiring intensive monitoring for toxicity (Heparin, Nitro, Insulin, Cardizem)? @ -no Were any procedures done? @ -no Diagnosis/symptom? @ - Acute, or Chronic, or Acute on Chronic? @ -Acute Uncomplicated (without systemic symptoms) or Complicated (systemic symptoms)? @ -Complicated Side effects of treatment? @ -no Exacerbation, Progression, or Severe Exacerbation? @ -exacerbation Poses a threat to life or bodily function? How? (Chest pain, [place], [place], pneumonia, PE, COPD, DKA, ARF, appy, cholecystitis, CVA, Diverticulitis, Homicidal, Suicidal, threat to staff... and all critical care pts) @ -yes Reevaluation #5: Differential Mental Health Depression, anxiety, bipolar, psychosis, schizophrenia, borderline personality, situational depression, adjustment disorder, behavioral disorder, brain tumor, malingering, substance abuse, encephalopathy, medication reaction, dementia, hypothyroidism, degenerative neurologic disorder, lupus.... This is not meant to be all-inclusive list Medical Decision Making - Medical Decision Making 55 male to the ER for evaluation of anxiety, patient looking for a place to rest and stay recently homeless requesting food something for anxiety and can be discharged home Disposition Clinical Impression: Encounter for psychiatric assessment, Mood disorder, Homelessness Disposition: HOME SELF-CARE Condition: Fair Instructions (If sedation given, give patient instructions): Anxiety (ED), Depression (ED) Is patient prescribed a controlled substance at d/c from ED?: No Referrals: Flash Schofield MD [Primary Care Provider] - 1-2 days Time of Disposition: 23:55
[2025-04-07] MEDS: LORazepam 1 MG TAB PO STA (23:58)
[2025-04-08 01:33] VITALS: BP 110/74; PULSE 64; RESP 18
== END 2025-04-08 01:37 | disposition home or self-care (01) ==
LOC: EC 22:21
DX: Z00.8 Encounter for other general examination (principal); Z59.00 Homelessness unspecified; F39 Unspecified mood [affective] disorder; Z86.73 Personal history of transient ischemic attack (TIA), and cerebral infarction without residual deficits; F17.290 Nicotine dependence, other tobacco product, uncomplicated; Z91.030 Bee allergy status; Z88.8 Allergy status to other drugs, medicaments and biological substances
CPT/HCPCS: 82075; 99284

== ENCOUNTER 2025-04-15 23:37 | Emergency (ER) | payer OTHER ==
[2025-04-15 23:55] VITALS: RESP 20; TEMP 98
--- NOTE | 2025-04-16 00:13 | ED ---
Chest Pain HPI - General Chief Complaint: Chest Pain Stated Complaint: Chest pain Time Seen by Provider: 04/15/25 23:41 Source: patient, RN notes reviewed, old records reviewed Mode of arrival: ambulatory Limitations: no limitations - History of Present Illness Initial Comments: This is a 55 male to the ER for evaluation patient presents today for evaluation of chest pain patient well-known to this emergency department and has recurrent evaluations usually for anxiety and depression, went to the ER with chest pain and chest pain currently resolved MD Complaint: chest pain, other (Anxiety stress) -: days(s) Onset: during rest, during exertion Pain Location: substernal, left chest Severity scale (1-10): 0 Consistency: constant Improves With: nothing Worsens With: nothing Anginal Symptoms: other (0) Other Symptoms: other (0) Treatments Prior to Arrival: none - Related Data Home Medications Medication Instructions Recorded Confirmed Ergocalciferol [Vitamin D2 (1250 1,250 mcg PO QMONTHLY 11/04/21 03/18/25 Mcg = 43603 Iu)] Albuterol Sulfate [Ventolin HFA] 2 puff INHALATION RT-Q6H PRN 04/07/24 03/18/25 HYDROcodone/APAP 5-325MG [[place] 1 tab PO BID PRN 05/05/24 03/18/25 5-325] Ibuprofen [Motrin] 600 mg PO TID PRN 03/18/25 03/18/25 Mirtazapine [Remeron] 45 mg PO HS 03/18/25 03/18/25 PARoxetine [Paxil] 20 mg PO DAILY 03/18/25 03/18/25 QUEtiapine [SEROquel] 25 mg PO HS 03/18/25 03/18/25 Rosuvastatin [Crestor] 20 mg PO HS 03/18/25 03/18/25 Previous Rx's Medication Instructions Recorded Amoxic-Pot Clav 875-125Mg 1 tab PO Q12HR #20 tab 03/09/25 [Augmentin 875-125] Allergies Allergy/AdvReac Type Severity Reaction Status Date / Time bee venom protein (honey bee) Allergy Anaphylaxis Verified 03/18/25 13:42 horseradish Allergy Anaphylaxis Verified 03/18/25 13:42 venom-wasp Allergy Anaphylaxis Verified 03/18/25 13:42 Review of Systems ROS Statement: Those systems with pertinent positive or pertinent negative responses have been documented in the HPI. ROS Other: All systems not noted in ROS Statement are negative. 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 Past Anesthesia/Blood Transfusion Reactions: No Reported Reaction Additional Past Anesthesia/Blood Transfusion Reaction / Comment(s): Pt has never had general/spinal anesthesia Past Psychological History: Anxiety, Bipolar, Depression, PTSD, Schizoaffective Disorder, Schizophrenia Smoking Status: Current every day smoker, Vaper Past Alcohol Use History: None Reported Past Drug Use History: Marijuana - Past Family History Mother Family Medical History: CVA/TIA, Diabetes Mellitus, Myocardial Infarction ([place]) Father Family Medical History: Unable to Obtain Additional Family Medical History / Comment(s): Emphesema General Exam Limitations: no limitations General appearance: alert, in no apparent distress Head exam: Present: atraumatic, normocephalic, normal inspection Eye exam: Present: normal appearance, PERRL, EOMI. Absent: scleral icterus, conjunctival injection, periorbital swelling ENT exam: Present: normal exam, mucous membranes moist Neck exam: Present: normal inspection. Absent: tenderness, meningismus, lymphadenopathy Respiratory exam: Present: normal lung sounds bilaterally. Absent: respiratory distress, wheezes, rales, rhonchi, stridor Cardiovascular Exam: Present: regular rate, normal rhythm, normal heart sounds. Absent: systolic murmur, diastolic murmur, rubs, gallop, clicks GI/Abdominal exam: Present: soft, normal bowel sounds. Absent: distended, tenderness, guarding, rebound, rigid Extremities exam: Present: normal inspection, full ROM, normal capillary refill. Absent: tenderness, pedal edema, joint swelling, calf tenderness Back exam: Present: normal inspection Neurological exam: Present: alert, oriented X3, CN II-XII intact Psychiatric exam: Present: normal affect, normal mood Skin exam: Present: warm, dry, intact, normal color. Absent: rash Course Vital Signs 04/15/25 23:53 Temperature 98 F Pulse Rate 98 Respiratory 20 Rate Blood Pressure 109/68 O2 Sat by Pulse 94 L Oximetry - Reevaluation(s) Reevaluation #1: 04/16/25 00:12 Medical records reviewed Reevaluation #2: 04/16/25 00:12 Symptoms improving here in the ER Reevaluation #3: 04/16/25 00:12 Patient informed of results questions answered Reevaluation #4: Was pt. sent in by a medical professional or institution (, [facility], TAX SERVICES MANAGER, urgent care, hospital, or fpc...) When possible be specific @ -no Did you speak to anyone other than the patient for history (EMS, parent, family, police, friend...)? What history was obtained from this source @ -no Did you review nursing and triage notes (agree or disagree)? Why? @ -agree Are old charts reviewed (outside hosp., previous admission, EMS record, old EKG, old radiological studies, urgent care reports/EKG's, fpc records)? Report findings @ -yes Differential Diagnosis (chest pain, altered mental status, abdominal pain women, abdominal pain men, vaginal bleeding, weakness, fever, dyspnea, syncope, headache, dizziness, GI bleed, back pain, seizure, CVA, palpatations, mental health, musculoskeletal)? @ -prior EKG interpreted by me (3pts min.). @ -yes X-rays interpreted by me (1pt min.). @ -yes negative for acute disease CT interpreted by me (1pt min.). @ -no U/S interpreted by me (1pt. min.). @ -no What testing was considered but not performed or refused? (CT, X-rays, U/S, labs)? Why? @ -none What meds were considered but not given or refused? Why? @ -none Did you discuss the management of the patient with other professionals (professionals i.e. [facility]ALEN Marroquin, TAX SERVICES MANAGER, lab, RT, psych nurse, manager social media, assistant associate professor, teacher, staff weapons officer, showcase trimmer)? Give summary @ -no Was smoking cessation discussed for >3mins.? @ -no Was critical care preformed (if so, how long)? @ -no Were there social determinants of health that impacted care today? How? (Homelessness, low income, unemployed, alcoholism, drug addiction, transportation, low edu. Level, literacy, decrease access to med. care, prison, rehab)? @ -none Was there de-escalation of care discussed even if they declined (Discuss DNR or withdrawal of care, Hospice)? DNR status @ -no What co-morbidities impacted this encounter? (DM, HTN, Smoking, COPD, CAD, Cancer, CVA, ARF, Chemo, Hep., AIDS, mental health diagnosis, sleep apnea, morbid obesity)? @ -none Was patient admitted / discharged? Hospital course, mention meds given and route, prescriptions, significant lab abnormalities, going to OR and other pertinent info. @ - Undiagnosed new problem with uncertain prognosis? @ -no Drug Therapy requiring intensive monitoring for toxicity (Heparin, Nitro, Insulin, Cardizem)? @ -no Were any procedures done? @ -no Diagnosis/symptom? @ - Acute, or Chronic, or Acute on Chronic? @ -Acute Uncomplicated (without systemic symptoms) or Complicated (systemic symptoms)? @ -Complicated Side effects of treatment? @ -no Exacerbation, Progression, or Severe Exacerbation? @ -exacerbation Poses a threat to life or bodily function? How? (Chest pain, [place], [place], pneumonia, PE, COPD, DKA, ARF, appy, cholecystitis, CVA, Diverticulitis, Homicidal, Suicidal, threat to staff... and all critical care pts) @ -yes Reevaluation #5: Differential Chest Pain: Stable Angina, Unstable Angina, STEMI, NSTEMI Aortic Dissection, Pneumothorax, Musculoskeletal, Esophageal Spasm GERD, Cholecystitis, Pancreatitis, Zoster, this is not meant to be an all-inclusive list. Chest Pain MDM - MDM 55-year-old well-known to this ER coming in for chest pain chest pain evaluation of persistent anxiety, EKG normal x-ray normal chest pain improved here in the ER patient feels well and can be discharged home Disposition Clinical Impression: Chest pain Disposition: HOME SELF-CARE Condition: Fair Instructions (If sedation given, give patient instructions): Chest Pain (ED) Is patient prescribed a controlled substance at d/c from ED?: No Referrals: Flash Schofield MD [Primary Care Provider] - 1-2 days Time of Disposition: 01:00
--- NOTE | 2025-04-16 01:05 | XR ---
EXAM: XR Chest, 2 Views CLINICAL HISTORY: ITS.REASON XR Reason: cp TECHNIQUE: Frontal and lateral views of the chest. COMPARISON: No relevant prior studies available. FINDINGS: Lungs: No consolidation or mass. Pleural space: No effusion. Heart: No cardiomegaly. Bones/joints: No acute findings. IMPRESSION: No acute cardiopulmonary process.
[2025-04-16] MEDS: LORazepam 1 MG TAB PO STA (01:16)
[2025-04-16 01:21] VITALS: BP 110/71; PULSE 88
== END 2025-04-16 01:21 | disposition home or self-care (01) ==
LOC: EC 23:37
DX: R07.89 Other chest pain (principal); Z86.73 Personal history of transient ischemic attack (TIA), and cerebral infarction without residual deficits; F17.290 Nicotine dependence, other tobacco product, uncomplicated; Z91.030 Bee allergy status; Z91.09 Other allergy status, other than to drugs and biological substances
CPT/HCPCS: 71046; 93005; 99285